=== PATIENT | male | born 1970 | race Hispanic/Latino ===

== ENCOUNTER 2018-02-14 09:29 | Inpatient (IN) | payer BC ==
[~2018-02-14] VITALS: Ht 162.6 cm; Wt 82.7 kg
[~2018-02-14 09:29] MED LIST: ATORVASTATIN CA10 MG PO; BYETTA; CLONIDINE HCL0.1 MG PO; DEXILANT60 MG PO; DIVALPROEX SOD250 MG PO; DOXEPIN HCL25 MG TP; EMPAGLIFLOZIN PO; FLAX SEED OIL1000 MG PO; FLUOCINONIDE-E15 GM; GLIMEPIRIDE1 MG PO; GLIMEPIRIDE2 MG PO; JANUMET 50-1,01 EACH PO; JANUVIA100 MG PO; LEVOCETIRIZINE D5 MG PO; LIDOCAINE 5% IN2 ML TP; LISINOPRIL2.5 MG PO; MECLIZINE HCL12.5 MG PO; METAXALONE PO; METFORMIN HCL500 M1; METFORMIN HCL500 M2 PO; METOPROLOL TART50 MG PO; MONTELUKAST SOD10 MG PO; NEXIUM2.5 MG; NITROSTAT0.4 MG SL; NOVOLOG MI100 UNIT/1; PLAVIX75 MG PO; PRAMIPEXOLE D0.25 MG PO; PROMETHAZINE HC25 M1 PO; ULTRAM50 MG PO; URSODIOL300 MG PO; Z PROPRANOLOL HCL; Z.0.JANUVIA100 MG; Z.0.LISINOPRIL40 MG; Z.0.SUMATRIPTAN SU10; Z.0.ZOLPIDEM TART12.; Z.1.METFORMIN HCL100
--- OUTSIDE RECORDS SUMMARY | 2018-02-14 09:32 | XMS REPORT ---
Author Author Lucinda Combs Organization [employer] Address Unknown Phone Unavailable Care Team Providers Care Chrome Plater Name Role Phone Lucinda Combs CP Unavailable Allergies No Known Allergies Problems Problem Type Condition Code Onset Dates Condition Status Problem Diabetes mellitus with complication E11.8 Active Assessment CAD in [place] artery I25.10 Active Problem Angina of effort I20.8 Active Problem Abnormal EKG R94.31 Active Problem Palpitations R00.2 Active Problem S/P PTCA (percutaneous transluminal coronary angioplasty) Z98.61 Active Problem Benign hypertensive heart disease I11.9 Active Problem CAD in [place] artery I25.10 Active Problem Pure hypercholesterolemia E78.01 Active Medications Medication Code System Code Instructions Start Date End Date Status Dosage Lisinopril [facility] [id number] 5 MG Orally Once a day Active 1 tablet Results No Known Results Summary Purpose [employer] Submission
--- OUTSIDE RECORDS SUMMARY | 2018-02-14 09:32 | XMS REPORT ---
Author Author Lucinda Combs Organization [employer] Address Unknown Phone Unavailable Care Team Providers Care Production Line Operator Name Role Phone Lucinda Combs CP Unavailable Allergies No Known Allergies Problems Problem Type Condition Code Onset Dates Condition Status Problem Pure hypercholesterolemia E78.01 Active Assessment CAD in [place] artery I25.10 Active Problem Angina of effort I20.8 Active Problem CAD in [place] artery I25.10 Active Problem Palpitations R00.2 Active Problem Diabetes mellitus with complication E11.8 Active Problem Benign hypertensive heart disease I11.9 Active Problem S/P PTCA (percutaneous transluminal coronary angioplasty) Z98.61 Active Problem Abnormal EKG R94.31 Active Medications Medication Code System Code Instructions Start Date End Date Status Dosage Plavix [facility] [address]-92 75 MG Orally Once a day Active 1 tablet Lisinopril [facility] [address]-64 5 MG Orally Once a day Active 1 tablet Results No Known Results Summary Purpose [employer] Submission
--- OUTSIDE RECORDS SUMMARY | 2018-02-14 09:32 | XMS REPORT ---
Author Author Lucinda Combs Organization [employer] Address Unknown Phone Unavailable Care Team Providers Care Die Cast Engineer Name Role Phone Lucinda Combs CP Unavailable Allergies No Known Allergies Problems Problem Type Condition Code Onset Dates Condition Status Problem Pure hypercholesterolemia E78.01 Active Assessment CAD in [place] artery I25.10 Active Problem Angina of effort I20.8 Active Problem CAD in [place] artery I25.10 Active Problem Palpitations R00.2 Active Problem Diabetes mellitus with complication E11.8 Active Problem Benign hypertensive heart disease I11.9 Active Problem S/P PTCA (percutaneous transluminal coronary angioplasty) Z98.61 Active Problem Abnormal EKG R94.31 Active Medications Medication Code System Code Instructions Start Date End Date Status Dosage Atorvastatin Calcium [facility] [address]-33 10 mg Orally Once a day Active 1 tablet Results No Known Results Summary Purpose [employer] Submission
--- OUTSIDE RECORDS SUMMARY | 2018-02-14 09:32 | XMS REPORT ---
Author Author Lucinda Combs Organization [employer] Address Unknown Phone Unavailable Care Team Providers Care Deal Architect Name Role Phone Lucinda Combs CP Unavailable Allergies No Known Allergies Problems Problem Type Condition Code Onset Dates Condition Status Problem Pure hypercholesterolemia E78.01 Active Assessment CAD in [place] artery I25.10 Active Problem Angina of effort I20.8 Active Problem CAD in [place] artery I25.10 Active Problem Palpitations R00.2 Active Problem Diabetes mellitus with complication E11.8 Active Problem Benign hypertensive heart disease I11.9 Active Problem S/P PTCA (percutaneous transluminal coronary angioplasty) Z98.61 Active Problem Abnormal EKG R94.31 Active Medications Medication Code System Code Instructions Start Date End Date Status Dosage Metoprolol Tartrate [facility] [address]-74 50 MG by mouth Twice a day Active 1 capsule Lisinopril [facility] [address]-95 5 MG Orally Once a day Active 1 tablet Results No Known Results Summary Purpose [employer] Submission
--- OUTSIDE RECORDS SUMMARY | 2018-02-14 09:32 | XMS REPORT ---
Author Author Lucinda Combs Organization [employer] Address Unknown Phone Unavailable Care Team Providers Care Scientific Editor Name Role Phone Lucinda Combs CP Unavailable Allergies No Known Allergies Problems Problem Type Condition Code Onset Dates Condition Status Problem Pure hypercholesterolemia E78.01 Active Assessment CAD in [place] artery I25.10 Active Problem Angina of effort I20.8 Active Problem CAD in [place] artery I25.10 Active Problem Palpitations R00.2 Active Problem Diabetes mellitus with complication E11.8 Active Problem Benign hypertensive heart disease I11.9 Active Problem S/P PTCA (percutaneous transluminal coronary angioplasty) Z98.61 Active Problem Abnormal EKG R94.31 Active Medications Medication Code System Code Instructions Start Date End Date Status Dosage Metoprolol Tartrate [facility] [address]-18 100 MG Orally Twice a day Active 1/2 half tablet Results No Known Results Summary Purpose [employer] Submission
--- OUTSIDE RECORDS SUMMARY | 2018-02-14 09:32 | XMS REPORT | Clinical Summary ---
Author Author [facility] Organization [facility] Address Unknown Phone Unavailable Care Team Providers Care Swat Team Member Name Role Phone Asked, No Pcp PCP Unavailable Allergies Comments Active Allergy Reactions Severity Noted Date Nausea, and vomitting Meperidine GI 09/13/2016 Intolerance Medications End Date Status Medication Sig Dispensed Refills Start Date Active montelukast (SINGULAIR) Take 10 mg by 0 10 mg tablet mouth 7 nightly. Active pramipexole (MIRAPEX) Take 0.25 mg 4 0.25 MG tablet by mouth 7 nightly. Active JANUMET 50-1,000 mg per Take 1 tablet 0 tablet by mouth 2 7 (two) times a day with meals. Active traMADol (ULTRAM) 50 mg Take 50 mg by 0 tablet mouth every 6 (six) hours as needed for moderate pain. Active promethazine (PHENERGAN) Take 25 mg by 0 25 MG tablet mouth every 6 (six) hours as needed for nausea or vomiting. Active lisinopril Take 1 tablet 90 tablet 0 (PRINIVIL,ZESTRIL) 5 mg (5 mg total) 7 tablet by mouth daily. Active anastrozole (ARIMIDEX) 1 Take 0.5 mg 0 mg chemo tablet by mouth once a week. Active testosterone cypionate Inject 140 mg 0 (DEPOTESTOTERONE into the CYPIONATE) 100 mg/mL shoulder, injection thigh, or buttocks once a week. Tuesday Active insulin ASPART (NovoLOG) Inject 4 0 100 unit/mL injection Units under the skin daily before breakfast. Active insulin ASPART (NovoLOG) Inject 54 0 100 unit/mL injection Units under the skin daily before lunch. Active insulin ASPART (NovoLOG) Inject 6 0 100 unit/mL injection Units under the skin daily before dinner. Active empagliflozin (JARDIANCE) Take 25 mg by 0 25 mg tablet mouth daily. Active divalproex (DEPAKOTE) 250 Take 250 mg 0 MG EC tablet by mouth every morning. Active divalproex (DEPAKOTE) 250 Take 500 mg 0 MG EC tablet by mouth nightly. Active INSULIN Inject 10 0 GLARGINE,HUM.REC.ANLOG Units under (TOUJEO SOLOSTAR U-300 the skin INSULIN SUBQ) every evening. Active atorvastatin (LIPITOR) 20 TAKE 1 TABLET 90 tablet 2 MG tabletIndications: BY MOUTH 8 Other hyperlipidemia EVERY DAY Active clopidogrel (PLAVIX) 75 TAKE 1 TABLET 90 tablet 0 mg tablet BY MOUTH 8 DAILY Active metoprolol tartrate TAKE 1 180 tablet 0 (LOPRESSOR) 50 mg tablet TABLET(50 MG) 8 BY MOUTH TWICE DAILY 05/20/2017 Discontinued divalproex (DEPAKOTE) 250 2 (two) times 4 MG EC tablet a day. 7 05/20/2017 Discontinued JARDIANCE 25 mg tablet daily. 3 7 05/20/2017 Discontinued NOVOLOG FLEXPEN 100 4 Units 2 unit/mL insulin pen before 7 breakfast - one time. 6m on weekend 4 m dose with sliding scale 12/23/2017 Discontinued nitroglycerin (NITROSTAT) Place 0.4 mg 0 0.4 MG SL tablet under the tongue every 5 (five) minutes as needed for chest pain. 05/20/2017 Discontinued esomeprazole magnesium Take by mouth 0 22.3 mg capsule,delayed as needed. release(DR/EC) 05/20/2017 Discontinued meclizine (ANTIVERT) 25 Take 25 mg by 0 mg tablet mouth as needed for dizziness. 08/22/2017 Discontinued atorvastatin (LIPITOR) 20 Take 1 tablet 90 tablet 3 MG tabletIndications: (20 mg total) 7 Other hyperlipidemia by mouth daily. Default OP ins 05/21/2017 Discontinued isosorbide mononitrate Take 1 tablet 30 tablet 11 (IMDUR) 30 MG 24 hr (30 mg total) 7 tablet by mouth daily. 01/08/2018 Discontinued clopidogrel (PLAVIX) 75 Take 1 tablet 90 tablet 3 mg tablet (75 mg total) 7 by mouth daily. 11/04/2017 Discontinued metoprolol tartrate Take 1 tablet 180 tablet 3 (LOPRESSOR) 50 mg tablet (50 mg total) 7 by mouth 2 (two) times a day. 06/16/2017 Discontinued isosorbide mononitrate Take 1 tablet 30 tablet 0 (IMDUR) 60 MG 24 hr (60 mg total) 8 tablet by mouth daily for 30 days. 05/31/2017 HYDROcodone-acetaminophen Take 1 tablet 20 tablet 0 (NORCO) 7.5-325 mg per by mouth 8 tablet every 4 (four) hours as needed for moderate pain for up to 10 days. Max Daily Amount: 6 tablets 06/16/2017 Discontinued isosorbide mononitrate Take 1 tablet 90 tablet 1 (IMDUR) 60 MG 24 hr (60 mg total) 8 tablet by mouth daily for 30 days. 06/16/2017 Discontinued isosorbide mononitrate Take 1 tablet 90 tablet 3 (IMDUR) 60 MG 24 hr (60 mg total) 8 tablet by mouth daily. 12/23/2017 Discontinued isosorbide mononitrate Take 1 tablet 90 tablet 3 (IMDUR) 60 MG 24 hr (60 mg total) 8 tablet by mouth daily. 02/01/2018 Discontinued metoprolol tartrate TAKE 1 180 tablet 0 (LOPRESSOR) 50 mg tablet TABLET(50 MG) 8 BY MOUTH TWICE DAILY 12/23/2017 Discontinued isosorbide mononitrate Take 3 90 tablet 2 (IMDUR) 30 MG 24 hr tablets (90 8 tablet mg total) by mouth daily for 30 days. 01/22/2018 nitroglycerin (NITROSTAT) Place 1 30 tablet 2 0.4 MG SL tablet tablet (0.4 8 mg total) under the tongue every 5 (five) minutes as needed for chest pain for up to 30 days. 01/23/2018 isosorbide mononitrate Take 3 90 tablet 2 (IMDUR) 30 MG 24 hr tablets (90 8 tablet mg total) by mouth daily for 30 days. Active Problems Problem Noted Date Precordial chest pain 12/22/2017 Chest pain 05/20/2017 Encounters Care Team Description Date Type Specialty Wilman Mendez MD Med Refill 02/01/2018 Refill Cardiology Wilman Mendez MD Med Refill 01/08/2018 Refill Cardiology Rehrer, DO Dian Ramos Anh Truong, MD Precordial chest pain (Primary Dx); Hypertension, unspecified type 12/22/2017 Emergency General Internal Medicine - 12/23/2017 Wilman Mendez MD Med Refill 11/04/2017 Refill Cardiology Wilman Mendez MD Med Refill 08/22/2017 Refill Cardiology Darlin Chapin MA Med Refill 06/16/2017 Refill Cardiology Jose Miguel Maynard MD Lee, Kelvin M., MD Chest pain, unspecified type (Primary Dx); Shortness of breath; Essential hypertension; Dyslipidemia 05/20/2017 Emergency General Internal Medicine - 05/21/2017 after 02/13/2017 Family History Medical History Relation Name Comments No Known Problems Father Diabetes Mother Hypertension Mother Diabetes Sister Hypertension Sister Relation Name Status Comments Father Mother Alive Sister Alive Social History Date Tobacco Use Types Packs/Day Years Used Former Smoker Smokeless Tobacco: Never Used Alcohol Use Drinks/Week oz/Week Comments No Sex Assigned at Date Recorded Not on file Industry Job Start Date Occupation Not on file Not on file Not on file Travel End Travel History Travel Start No recent travel history available. Last Filed Vital Signs Time Taken Vital Sign Reading 12/23/2017 3:14 PM CDT Blood Pressure 142/84 12/23/2017 3:14 PM CDT Pulse 78 12/23/2017 3:14 PM CDT Temperature 36.1 C (96.9 F) 12/23/2017 3:14 PM CDT Respiratory Rate 16 12/23/2017 3:14 PM CDT Oxygen Saturation 96% - Inhaled Oxygen - Concentration 12/23/2017 10:40 AM CDT Weight 78.5 kg (173 lb) 12/23/2017 10:40 AM CDT Height 160 cm (5' 3") 12/23/2017 10:40 AM CDT Body Mass Index 30.65 Plan of Treatment Health Maintenance Due Date Last Done Comments INFLUENZA VACCINE 10/05/2017 12/04/2016, 01/19/2016, 01/24/2014, Additional history exists HEPATITIS B VACCINES Aged Out No longer eligible based on patient's age to complete this topic IPV VACCINES Aged Out No longer eligible based on patient's age to complete this topic MENINGOCOCCAL VACCINE Aged Out No longer eligible based on patient's age to complete this topic Procedures Comments Procedure Name Priority Date/Time Associated Diagnosis POC GLUCOSE Routine 12/23/2017 1:15 PM CDT NM MYOCARDIAL PERFUSION Routine 12/23/2017 STRESS ONLY 12:42 PM CDT CV STRESS TEST NUCLEAR Routine 12/23/2017 CARDIO 12:42 PM CDT POC GLUCOSE Routine 12/23/2017 8:19 AM CDT LACTIC ACID LEVEL Routine 12/23/2017 4:23 AM CDT ESTIMATED GFR Routine 12/23/2017 4:23 AM CDT BASIC METABOLIC PANEL Routine 12/23/2017 4:23 AM CDT HEMOGLOBIN A1C Timed 12/23/2017 4:23 AM CDT TROPONIN Timed 12/23/2017 4:23 AM CDT VALPROIC ACID LEVEL Routine 12/23/2017 4:23 AM CDT POC GLUCOSE Routine 12/22/2017 8:[address] CHEST WO CONTRAST Routine 12/22/2017 6:25 PM CDT POC GLUCOSE Routine 12/22/2017 4:52 PM CDT TROPONIN Timed 12/22/2017 2:59 PM CDT LACTIC ACID LEVEL, SEPSIS Timed 12/22/2017 - NOW AND REPEAT 2X EVERY 2:59 PM CDT 3 HOURS ECHOCARDIOGRAM 2D Routine 12/22/2017 COMPLETE W MMODE SPECTRAL 2:50 PM CDT COLOR DOPPLER ([id number]) POC GLUCOSE Routine 12/22/2017 1:22 PM CDT ECG ED PRELIMINARY Routine 12/22/2017 INTERPRETATION 10:31 AM CDT XR CHEST 1 VW PORTABLE STAT 12/22/2017 9:34 AM CDT ESTIMATED GFR STAT 12/22/2017 9:18 AM CDT B NATRIURETIC PEPTIDE STAT 12/22/2017 9:18 AM CDT TROPONIN STAT 12/22/2017 9:18 AM CDT CREATINE KINASE, TOTAL STAT 12/22/2017 (CPK) 9:18 AM CDT LACTIC ACID LEVEL, SEPSIS STAT 12/22/2017 - NOW AND REPEAT 2X EVERY 9:18 AM CDT 3 HOURS MAGNESIUM LEVEL STAT 12/22/2017 9:18 AM CDT PHOSPHORUS LEVEL STAT 12/22/2017 9:18 AM CDT HEPATIC FUNCTION PANEL STAT 12/22/2017 9:18 AM CDT BASIC METABOLIC PANEL STAT 12/22/2017 9:18 AM CDT PARTIAL THROMBOPLASTIN STAT 12/22/2017 TIME (PTT) 9:18 AM CDT PROTHROMBIN TIME WITH INR STAT 12/22/2017 9:18 AM CDT HC COMPLETE BLD COUNT STAT 12/22/2017 W/AUTO DIFF 9:18 AM CDT ECG 12-LEAD STAT 12/22/2017 8:55 AM CDT POC GLUCOSE Routine 05/21/2017 5:08 PM CDT NM MYOCARDIAL PERFUSION Routine 05/21/2017 STRESS REST 1 DAY 12:20 PM CDT CV STRESS TEST NUCLEAR Routine 05/21/2017 CARDIO 12:20 PM CDT POC GLUCOSE Routine 05/21/2017 12:08 PM CDT POC GLUCOSE Routine 05/21/2017 8:17 AM CDT ZZESTIMATED GFR Routine 05/21/2017 4:00 AM CDT LIPID PANEL Routine 05/21/2017 4:00 AM CDT BASIC METABOLIC PANEL Routine 05/21/2017 4:00 AM CDT HC COMPLETE BLD COUNT Routine 05/21/2017 W/AUTO DIFF 3:45 AM CDT POC GLUCOSE Routine 05/20/2017 9:47 PM CDT POC GLUCOSE Routine 05/20/2017 5:58 PM CDT POC GLUCOSE Routine 05/20/2017 4:03 PM CDT TROPONIN Timed 05/20/2017 2:07 PM CDT XR CHEST 1 VW PORTABLE STAT 05/20/2017 11:10 AM CDT ZZESTIMATED GFR STAT 05/20/2017 10:05 AM CDT B NATRIURETIC PEPTIDE STAT 05/20/2017 10:05 AM CDT TROPONIN STAT 05/20/2017 10:05 AM CDT COMPREHENSIVE METABOLIC STAT 05/20/2017 PANEL 10:05 AM CDT HC COMPLETE BLD COUNT STAT 05/20/2017 W/AUTO DIFF 10:05 AM CDT ECG 12-LEAD STAT 05/20/2017 9:46 AM CDT after 02/13/2017 Results * POC glucose (12/23/2017 1:15 PM CDT) Only the most recent of 11 results within the time period is included. POC glucose 217 (H) 65 - 99 mg/dL [facility] DEPARTMENT OF Comment: PATHOLOGY AND H Notified RN [employer] MEDICINE Meter ID: [id number] Digital Production Manager: mau spivey Performing Organization Address City/State/Zipcode Phone Number [facility] DEPARTMENT OF [address] [place] [address] PATHOLOGY AND GENOMIC MEDICINE * Cv ecg exercise stress (nuclear or echo) (12/23/2017 12:42 PM CDT) Resting HR 69 [facility] MUSE Resting BP 143 [facility] Peak MET Achieved 1.0 [facility] Protocol Name CELY [facility] Time in Exercise Phase 00:01:00 [facility] Max Systolic BP 145 [facility] Max Diastolic BP 87 [facility] Max Heart Rate 102 [facility] Max Predicted Heart Rate 171 [facility] M[facility] Target HR Formula (220 - Age)*100% [facility] Test Indication chest pain [facility]USE Arrhy During Ex [facility] M[facility] ECG Interp Before EX [facility] MUSE ECG Interp During Ex [facility] Ex Summary Comment [facility] MUSE Overall HR Response to [facility] Exercise Overall BP Response To [facility] Exercise Reason for Termination [facility] Stress Test Impression -Waveform interpreted in [facility] report associated with image study. No interpretation is provided as part of this Stress ECG report.-Electronically Signed By Baldemar Law MD ([id number]), assignment desk editor Fiorella Conrad ([id number]) on 12/23/2017 2:08:09 PM Performing Organization Address [facility] Phone Number [facility] [address] [place] [address] * Myocardial perfusion (12/23/2017 12:42 PM CDT) Only the most recent of 2 results within the time period is included. Narrative Performed At [facility] Nuclear Cardiology and Cardiac CT [address] [place] [id number] Myocardial Perfusion Imaging Report Stress ECG tracings are available in MUSE, EPIC and CV Web All ECG interpretations are included in this report Pat.Name:HANG TOM Pat.ID:[id number] .Date: 12/23/2017Refer.MD:CORINE GIBSON MD Exam Time: 11:50:00 AM Study Type:Myocardial Perfusion Imaging Height:63inWeight:173lb BSA: 1.82 m2 DOBAge:1970,47Y Sex: MALEBP:143/92 HR:71 bpmHCT: 47 % Nuclear Tech:BETY Noland, ARRT, Gena Santa JOSE LUIS, NMTCB Pat. Stat.:Inpatient Room:[id number] Event ID:[id number] Order ID:[id number] Reason for Study:Eval for Ischemia, Chest pain History / Clinical:Diabetes, Hyperlipidemia, Hypertension Procedures:Low Dose Stress Only Race:C Risk Factors:Known Coronary Atherosclerosis, Diabetes, Hyperlipidemia, Hypertension, Prior HI Clinical Symptoms:Regadenoson Physical Exam:S1, S2 Surgery: Serum K+ Date,4.2 12/23/17/, Troponin I Date,1)negative 12/22/17/negative 12/22/17 2)negative 12/22/18/ 3)/ Medications:Aspirin, Plavix, Atorvastatin, Depakote, Insulin, Imdur, Metoprolol, Januvia SUMMARY: SCINTIGRAPHIC RESULTS Perfusion Defect Size (% LV) 0 % Total 0 % Ischemia 0 % Scar Left Ventricular Perfusion Results There is normal tracer distribution throughout the myocardium during stress. Gated SPECT Results The post-stress left ventricular ejection fraction is 68 % with normal regional wall motion and left ventricular thickening.Left ventricular end-diastolic volume is 113 ml; end-systolic volume is36 ml. The left ventricle is of normal size at stress.The right ventricle is of normal size with normal wall motion. Conclusion Normal regadenoson Tc-99m tetrofosmin myocardial perfusion study. The left ventricular ejection fraction is normal. CT Findings: Coronary calcification is present.The ascending and descending aorta are normal in size. There is no significant pericardial effusion. Limited lung baptiste show no significant abnormalities. Comments Patients with a normal stress myocardial perfusion study have a low (< 1%) annual risk of cardiac or nonfatal myocardial infarction. Study Quality/Artifacts The study quality is good. Comparison to Previous Study None availabThe previous study dated 05/21/17 was also normal with a left ventricular ejection fraction of 74%. STRESS: Baseline Vital Signs:Intervention: Regadenoson 0.4mg/5ml IV over 10 seconds followed by radiotracer injection and 5ml saline flush ECG: Normal Sinus Rhythm Rhythm:Non-specific ST changes Stress Test Results: Target HR: 145 Symptoms and Complications: Terminated: As per Regadenoson protocol Symptoms:Chest pain, Shortness of breath Complications: none Conclusions: Normal heart rate response to pharmacological stress, Normal blood pressure response to pharmacological stress Signed 12/23/2017 03:00 PM Baldemar Law MD Procedure Note Interface, Radiology Results In - 12/23/2017 3:00 PM CDT Nuclear Cardiology and Cardiac CT [address] [place] [address] Myocardial Perfusion Imaging Report Stress ECG tracings are available in [employer], [employer] All ECG interpretations are included in this report Pat.Name: HANG TOM Pat.ID: [id number] .Date: 12/23/2017 Refer.MD: CORINE GIBSON MD Exam Time: 11:50:00 AM Study Type:Myocardial Perfusion Imaging Height: 63in Weight: 173lb BSA: 1.82 m2 Age: 10 1970,47Y Sex: MALE BP: 143/92 HR: 71 bpm HCT: 47 % Nuclear Tech:Anselmo Maloney, HOTEL DESK CLERK, ARRT, Gena Santa, ARRT, NMTCB Pat. Stat.:Inpatient Room: J809 Nuclear Event ID:[id number] Order ID: [id number] Reason for Study:Eval for Ischemia, Chest pain History / Clinical:Diabetes, Hyperlipidemia, Hypertension Procedures:Low Dose Stress Only Race: C Risk Factors:Known Coronary Atherosclerosis, Diabetes, Hyperlipidemia, Hypertension, Prior HI Clinical Symptoms:Regadenoson Physical Exam:S1, S2 Surgery: Serum K+ Date, 4.2 12/23/17/, Troponin I Date, 1)negative 12/22/17/negative 12/22/17 2)negative 12/22/18/ 3)/ Medications:Aspirin, Plavix, Atorvastatin, Depakote, Insulin, Imdur, Metoprolol, Januvia SUMMARY: SCINTIGRAPHIC RESULTS Perfusion Defect Size (% LV) 0 % Total 0 % Ischemia 0 % Scar Left Ventricular Perfusion Results There is normal tracer distribution throughout the myocardium during stress. Gated SPECT Results The post-stress left ventricular ejection fraction is 68 % with normal regional wall motion and left ventricular thickening. Left ventricular end-diastolic volume is 113 ml; end-systolic volume is 36 ml. The left ventricle is of normal size at stress. The right ventricle is of normal size with normal wall motion. Conclusion Normal regadenoson Tc-99m tetrofosmin myocardial perfusion study. The left ventricular ejection fraction is normal. CT Findings: Coronary calcification is present. The ascending and descending aorta are normal in size. There is no significant pericardial effusion. Limited lung baptiste show no significant abnormalities. Comments Patients with a normal stress myocardial perfusion study have a low (< 1%) annual risk of cardiac or nonfatal myocardial infarction. Study Quality/Artifacts The study quality is good. Comparison to Previous Study None availabThe previous study dated 05/21/17 was also normal with a left ventricular ejection fraction of 74%. STRESS: Baseline Vital Signs: Intervention: Regadenoson 0.4mg/5ml IV over 10 seconds followed by radiotracer injection and 5ml saline flush ECG: Normal Sinus Rhythm Rhythm: Non-specific ST changes Stress Test Results: Target HR: 145 Symptoms and Complications: Terminated: As per Regadenoson protocol Symptoms: Chest pain, Shortness of breath Complications: none Conclusions: Normal heart rate response to pharmacological stress, Normal blood pressure response to pharmacological stress Signed 12/23/2017 03:00 PM Baldemar Law MD Performing Organization Address City/State/[facility] Phone Number [facility] [address] [place] [address] * Estimated GFR (12/23/2017 4:23 AM CDT) Only the most recent of 2 results within the time period is included. Estimated GFR 79 mL/min/1.73 m2 [facility] DEPARTMENT OF Comment: PATHOLOGY AND CatergoryUnitsInte GENOMIC MEDICINE rpretation G1 >=90 Normal or high G2 60-89Mildly decreased [id number] Mildly to moderately decreased E0c18-72 Moderately to severely decreased G4 15-29Severely decreased G5 <15Kidney failure The eGFR was calculated using the Chronic Kidney Disease Epidemiology Collaboration (CKD-EPI) equation. Interpretation is based on recommendations of the National Kidney Foundation-Kidney Disease Outcomes Quality Initiative (NKF-KDOQI) published in 2014. Specimen Plasma specimen Performing Organization Address [facility] Phone Number [facility] [place] [address] PATHOLOGY AND GENOMIC MEDICINE * Troponin (12/23/2017 4:23 AM CDT) Only the most recent of 5 results within the time period is included. Troponin <0.30 0.00 - 0.30 ng/mL [facility] DEPARTMENT OF Comment: PATHOLOGY AND 0.30 - 1.49 GENOMIC MEDICINE ng/mlMay indicate increased risk of acute coronary syndrome. >=1.5 ng/ml Consistent with acute myocardial infarction. The diagnostic value of a single normal or non-diagnostic result is questionable.Serial samples at 2-6 hour intervals are required to rule out acute myocardial injury. Specimen Plasma specimen Performing Organization Address [facility] Cent[facility]ode Phone Number [facility] DEPARTMENT OF [address] [place] [address] PATHOLOGY AND GENOMIC MEDICINE * Lactic acid level (12/23/2017 4:23 AM CDT) Lactic acid 2.8 (H) 0.5 - 2.2 mmol/L [facility] DEPARTMENT OF PATHOLOGY AND GENOMIC MEDICINE Specimen Plasma specimen Performing Organization Address [facility] Cent[facility]ode Phone Number [facility] DEPARTMENT OF [address] [place] [address] PATHOLOGY AND GENOMIC MEDICINE * Hemoglobin A1c (12/23/2017 4:23 AM CDT) Hemoglobin A1C 8.0 (H) 4.0 - 5.6 % [facility] DEPARTMENT OF Comment: PATHOLOGY AND HbA1c cutoffs for diagnosing GENOMIC MEDICINE diabetes: 4.0% - 5.6%=normal 5.7% - 6.4%=increased risk for diabetes (prediabetes) >=6.5%=diabetes Goals for glycemic control (ADA 2016) < 7.0%Target for non adults with diabetes. More or less stringent targets may be appropriate for individual patients. <7.5% Target for Children and adolescents with type 1 diabetes. Specimen Blood Performing Organization Address City/[facility] [place] [address] PATHOLOGY AND GENOMIC MEDICINE * Valproic acid level (12/23/2017 4:23 AM CDT) Valproic acid 56.3 50.0 - 100.0 ug/mL [facility] DEPARTMENT OF Comment: PATHOLOGY AND Therapeutic Range: GENOMIC MEDICINE 50 - 100 ug/mL Specimen Plasma specimen Performing Organization Address [facility] [place] [address] PATHOLOGY AND GENOMIC MEDICINE * Basic metabolic panel (12/23/2017 4:23 AM CDT) Only the most recent of 3 results within the time period is included. Sodium 139 135 - 148 mEq/L [facility] DEPARTMENT OF PATHOLOGY AND GENOMIC MEDICINE Potassium 4.2 3.5 - 5.0 mEq/L [facility] DEPARTMENT OF PATHOLOGY AND GENOMIC MEDICINE Chloride 101 98 - 112 mEq/L [facility] DEPARTMENT OF PATHOLOGY AND GENOMIC MEDICINE CO2 26 24 - 31 mEq/L [facility] DEPARTMENT OF PATHOLOGY AND GENOMIC MEDICINE Anion gap 12@ANIO 7 - 15 mEq/L [facility] DEPARTMENT OF PATHOLOGY AND GENOMIC MEDICINE BUN 11 6 - 20 mg/dL [facility] DEPARTMENT OF PATHOLOGY AND GENOMIC MEDICINE Creatinine 1.09 0.70 - 1.20 mg/dL [facility] DEPARTMENT OF PATHOLOGY AND GENOMIC MEDICINE Glucose 95 65 - 99 mg/dL [facility] DEPARTMENT OF PATHOLOGY AND GENOMIC MEDICINE Calcium 9.2 8.3 - 10.2 mg/dL [facility] DEPARTMENT OF PATHOLOGY AND GENOMIC MEDICINE Specimen Plasma specimen Performing Organization Address City/[facility] [place] [address] PATHOLOGY AND GENOMIC MEDICINE * CT Chest Wo Contrast (12/22/2017 6:25 PM CDT) Narrative Performed At EXAMINATION: [facility] CT CHEST WO CONTRAST CLINICAL HISTORY:Tachypnea TECHNIQUE: Multiple axial images of the chest were obtained without contrast. Sagittal and coronal computerized reformatted images were also obtained..All CT images were acquired using radiation dose lowering technique with automated exposure control and / or iterative reconstruction. COMPARISON: CT chest, 10/04/2011, and x-ray, 12/22/2017 IMPRESSION: 1.Mild bibasilar atelectasis and or scarring. Lungs otherwise clear. 2.No axillary, mediastinal or definite hilar lymphadenopathy identified on this limited noncontrast exam. Heart is not enlarged. No pericardial or pleural effusion. 3.Calcified plaque in the thoracic aorta and coronary arteries. A stent in the LAD. Cholecystectomy. Borderline fatty liver. 4.Nonobstructive nephrolithiasis bilaterally. Visualized bones show no suspicious lesion. SUMMARY: No acute or suspicious finding identified. [id number] Procedure Note Interface, Radiology Results Incoming - 12/22/2017 7:14 PM CDT EXAMINATION: CT CHEST WO CONTRAST CLINICAL HISTORY: Tachypnea TECHNIQUE: Multiple axial images of the chest were obtained without contrast. Sagittal and coronal computerized reformatted images were also obtained. . All CT images were acquired using radiation dose lowering technique with automated exposure control and / or iterative reconstruction. COMPARISON: CT chest, 10/04/2011, and x-ray, 12/22/2017 IMPRESSION: 1. Mild bibasilar atelectasis and or scarring. Lungs otherwise clear. 2. No axillary, mediastinal or definite hilar lymphadenopathy identified on this limited noncontrast exam. Heart is not enlarged. No pericardial or pleural effusion. 3. Calcified plaque in the thoracic aorta and coronary arteries. A stent in the LAD. Cholecystectomy. Borderline fatty liver. 4. Nonobstructive nephrolithiasis bilaterally. Visualized bones show no suspicious lesion. SUMMARY: No acute or suspicious finding identified. [facility]-[id number] Performing Organization Address City/State/Zipcode Phone Number EBONY [address] [place] [address] * Lactic acid level, SEPSIS - Now and repeat 2x every 3 hours (12/22/2017 2:59 PM CDT) Only the most recent of 2 results within the time period is included. Lactic acid 4.9 (HH) 0.5 - 2.2 mmol/L [facility] DEPARTMENT OF PATHOLOGY AND GENOMIC MEDICINE Specimen Blood Performing Organization Address City/State/Zipcode Phone Number [facility] DEPARTMENT OF [address] [place] [address] PATHOLOGY AND GENOMIC MEDICINE * Echocardiogram complete w contrast and 3D if needed (12/22/2017 2:50 PM CDT) Narrative Performed At [facility] Echocardiography Report [id number] [facility], [facility] [address], [place] [address] Pat.Name:HANG TOM Pat.ID:[id number] .Date: 12/22/2017Refer.MD:ILDA GIBSON MD Exam Time: 2:27:00 PMStudy Type:Routine Echo Height:63inWeight:175lb BSA: 1.83 m2 DOBAge:1970,47Y Sex: MALEBP:101/51 HR:86 bpm Sonogrphr: Chapis Shine RDCS, RVT/ Lilliana Mendez (student) Pat. Stat.:Inpatient Room:[facility] Study Status:Final Echo Event ID:[id number] Order ID:[id number] Reason for Study:Hypertension - Initial eval of suspected hypertensive heart disease History / Clinical:Coronary Artery Disease, Hyperlipidemia, Hypertension Procedures:2D Echo, Colorflow Doppler, Strain Race:C SUMMARY: LV size is normal. LV EF is normal. Estimated EF is 65-69% RV size is normal. RV systolic function is normal. FINDINGS: LV: LV size is normal. Concentric left ventricular remodeling. LVEF is normal. Overall wall motion is normal. LV GLS is mildlyimpaired at -14.3% Estimated EF is 65-69% RV: RV size is normal. RV systolic function is normal. LA: LA size is normal. RA: RA size is normal. AO: Aortic root diameter is normal. NATA: No pericardial effusion. IAS:Interatrial septum is thickened consistent with lipomatous hypertrophy. AV: No structural AV abnormalities noted. MV: No structural MV abnormalities noted. A trace of mitral regurgitation. PV: No structural PV abnormalities noted. TV: No structural TV abnormalities noted. Grace: Normal diastolic function. Other:Insufficient TR jet to estimate PA systolic pressure. MEASUREMENTS: 2D Parasternal Long Herminie LVOT 2 cmLA Ds3.5 cm LVIDd4.3 cmIndex2.3 cm/m Ao An2 cm LVIDs2.6 cmAo Rtd 3 cm Index1.7 cm/m LV%fs 39 % LV Yrck713.9 g(122-174) IVSd 1.2 cmLVM Index 97.7 g/m2 LVPWd1.2 cmRWT0.6 LA Sng Plane LA Area 14.5 cm2(8.8-23.4) LA Vol30.5 ml Index16.7 ml/m LA LngAx 5.8 cm DOPPLER LVOT Stroke Vol LVOT 2 cmLVOT CO5.2 l/min LVOT TVI19.6 cmLVOT CI2.8 l/m/m2 LVOT Tm297 [id number] bpm LVOT SV 61.4 ml Signed 12/22/2017 04:15 PM Anjel Portillo M.D. Procedure Note Interface, Radiology Results In - 12/22/2017 4:15 PM CDT Echocardiography Report [id number] [address] Pat.Name: HANG TOM.ID: [id number] .Date: 12/22/2017 Refer.MD: ILDA GIBSON MD Exam Time: 2:27:00 PM Study Type:Routine Echo Height: 63in Weight: 175lb BSA: 1.83 m2 Age: 10 1970,47Y Sex: MALE BP: 101/51 HR: 86 bpm Sonogrphr: Chapis Shine, GABRIEL, RVT/ Lilliana Mendez (student) Pat. Stat.:Inpatient Room: [facility] Study Status:Final Echo Event ID:[id number] Order ID: [id number] Reason for Study:Hypertension - Initial eval of suspected hypertensive heart disease History / Clinical:Coronary Artery Disease, Hyperlipidemia, Hypertension Procedures:2D Echo, Colorflow Doppler, Strain Race: C SUMMARY: LV size is normal. LV EF is normal. Estimated EF is 65-69% RV size is normal. RV systolic function is normal. FINDINGS: LV: LV size is normal. Concentric left ventricular remodeling. LV EF is normal. Overall wall motion is normal. LV GLS is mildly impaired at -14.3% Estimated EF is 65-69% RV: RV size is normal. RV systolic function is normal. LA: LA size is normal. RA: RA size is normal. AO: Aortic root diameter is normal. NATA: No pericardial effusion. IAS: Interatrial septum is thickened consistent with lipomatous hypertrophy. AV: No structural AV abnormalities noted. MV: No structural MV abnormalities noted. A trace of mitral regurgitation. PV: No structural PV abnormalities noted. TV: No structural TV abnormalities noted. Grace: Normal diastolic function. Other: Insufficient TR jet to estimate PA systolic pressure. MEASUREMENTS: 2D Parasternal Long [place]ie LVOT 2 cm LA Ds 3.5 cm LVIDd 4.3 cm Index 2.3 cm/m Ao An 2 cm LVIDs 2.6 cm Ao Rtd 3 cm Index 1.7 cm/m LV%fs 39 % LV Mass 178.9 g (122-174) IVSd 1.2 cm LVM Index 97.7 g/m2 LVPWd 1.2 cm RWT 0.6 LA Sng Plane LA Area 14.5 cm2 (8.8-23.4) LA Vol 30.5 ml Index 16.7 ml/m LA LngAx 5.8 cm DOPPLER LVOT Stroke Vol LVOT 2 cm LVOT CO 5.2 l/min LVOT TVI 19.6 cm LVOT CI 2.8 l/m/m2 LVOT Tm 297 msec HR 84 bpm LVOT SV 61.4 ml Signed 12/22/2017 04:15 PM Anjel Portillo M.D. Performing Organization Address City/State/Zipcode Phone Number [facility] [address] [place] [address] * ECG ED Preliminary Interpretation - NOT AN ORDER (12/22/2017 10:31 AM CDT) Narrative Performed At Attila Rosales DO 12/22/20171:52 PM ECG ED Preliminary Interpretation - Not an Order Performed by: ATTILA ROSALES Authorized by: ATTILA ROSALES ECG reviewed by ED Physician in the absence of a apprentice lineman third step: yes Previous ECG: Previous ECG:Compared to current Comparison ECG info:05/20 Similarity:No change Interpretation: Interpretation: abnormal Rate: ECG rate:91 ECG rate assessment: normal Rhythm: Rhythm: sinus rhythm Ectopy: Ectopy: none QRS: QRS axis:Normal QRS intervals:Normal Conduction: Conduction: normal ST segments: ST segments:Normal T waves: T waves: non-specific Q waves: Q waves:I and aVL Comments: left atrial fascicular block * XR Chest 1 Vw Portable (12/22/2017 9:34 AM CDT) Only the most recent of 2 results within the time period is included. Narrative Performed At EXAMINATION:XR CHEST 1 VW PORTABLE RADIANT CLINICAL HISTORY:Chest pain concern for ACs COMPARISON:05/20/2017. IMPRESSION: 1. LINES/TUBES: None. 2.LUNGS: Clear. 3.HEART:Heart size is normal.. 4.PLEURA: No evidence for pleural effusion or pneumothorax.. 5.OTHER: Regional osseous structures remain normal in appearance. [id number] Procedure Note [facility], Radiology Results Incoming - 12/22/2017 9:41 AM CDT EXAMINATION: XR CHEST 1 VW PORTABLE CLINICAL HISTORY: Chest pain concern for ACs COMPARISON: 05/20/2017. IMPRESSION: 1. LINES/TUBES: None. 2. LUNGS: Clear. 3. HEART: Heart size is normal.. 4. PLEURA: No evidence for pleural effusion or pneumothorax.. 5. OTHER: Regional osseous structures remain normal in appearance. [id number] Performing Organization Address [facility] [place] [address] * Partial thromboplastin time, activated (12/22/2017 9:18 AM CDT) PTT 31.1 23.0 - 36.0 sec [facility] DEPARTMENT OF Comment: PATHOLOGY AND PTT therapeutic range for DeepDyve MEDICINE unfractionated heparin is 61.0-112.0 seconds which corresponds to Anti-Xa 0.3-0.7 U/ml. Specimen Blood Performing Organization Address [facility] [place] [address] PATHOLOGY AND GENOMIC MEDICINE * Prothrombin time with INR (12/22/2017 9:18 AM CDT) Prothrombin time 12.8 12.0 - 15.0 sec [facility] DEPARTMENT OF PATHOLOGY AND GENOMIC MEDICINE INR 1.0 [facility] DEPARTMENT OF Comment: PATHOLOGY AND The International Normalized GENOMIC MEDICINE Ratio (INR) is a therapeutic monitoring tool for patients who are stable on oral anticoagulant therapy. An INR of 2.0-3.0 is suggested for deep vein thrombosis/pulmonary embolism. Specimen Blood Performing Organization Address [facility] Phone Number [facility] [place] [address] PATHOLOGY AND GENOMIC MEDICINE * CBC with platelet and differential (12/22/2017 9:18 AM CDT) Only the most recent of 3 results within the time period is included. WBC 9.19 4.50 - 11.00 k/uL [facility] DEPARTMENT OF PATHOLOGY AND GENOMIC MEDICINE RBC 6.07 (H) 4.40 - 6.00 m/uL [facility] DEPARTMENT OF PATHOLOGY AND GENOMIC MEDICINE HGB 14.4 14.0 - 18.0 g/dL [facility] DEPARTMENT OF PATHOLOGY AND GENOMIC MEDICINE HCT 47.0 41.0 - 51.0 % [facility] DEPARTMENT OF PATHOLOGY AND GENOMIC MEDICINE MCV 77.4 (L) 82.0 - 100.0 fL [facility] DEPARTMENT OF PATHOLOGY AND GENOMIC MEDICINE MCH 23.7 (L) 27.0 - 34.0 pg [facility] DEPARTMENT OF PATHOLOGY AND GENOMIC MEDICINE MCHC 30.6 (L) 31.0 - 37.0 g/dL [facility] DEPARTMENT OF PATHOLOGY AND GENOMIC MEDICINE RDW - SD 48.0 37.0 - 55.0 fL [facility] DEPARTMENT OF PATHOLOGY AND GENOMIC MEDICINE MPV 10.2 8.8 - 13.2 fL [facility] DEPARTMENT OF PATHOLOGY AND GENOMIC MEDICINE Platelet count 267 150 - 400 k/uL [facility] DEPARTMENT OF PATHOLOGY AND GENOMIC MEDICINE Nucleated RBC 0.00 /100 WBC [facility] DEPARTMENT OF PATHOLOGY AND GENOMIC MEDICINE Neutrophils 66.9 39.0 - 69.0 % [facility] DEPARTMENT OF PATHOLOGY AND GENOMIC MEDICINE Lymphocytes 21.5 (L) 25.0 - 45.0 % [facility] DEPARTMENT OF PATHOLOGY AND GENOMIC MEDICINE Monocytes 9.5 0.0 - 10.0 % [facility] DEPARTMENT OF PATHOLOGY AND GENOMIC MEDICINE Eosinophils 1.2 0.0 - 5.0 % [facility] DEPARTMENT OF PATHOLOGY AND GENOMIC MEDICINE Basophils 0.5 0.0 - 1.0 % [facility] DEPARTMENT OF PATHOLOGY AND GENOMIC MEDICINE Immature granulocytes 0.4Comment: "Immature 0.0 - 1.0 % [facility] DEPARTMENT OF granulocytes" (promyelocytes, PATHOLOGY AND myelocytes, metamyelocytes) GENOMIC MEDICINE Specimen Blood Performing Organization Address City/[facility]/Zipcode Phone Number [facility] [place] [address] PATHOLOGY AND GENOMIC MEDICINE * Phosphorus level (12/22/2017 9:18 AM CDT) Phosphorus 2.7 2.4 - 4.5 mg/dL [facility] DEPARTMENT OF PATHOLOGY AND GENOMIC MEDICINE Specimen Plasma specimen Performing Organization Address City/[facility] Phone Number [facility] [place] [address] PATHOLOGY AND GENOMIC MEDICINE * B natriuretic peptide (12/22/2017 9:18 AM CDT) Only the most recent of 2 results within the time period is included. BNP 3 0 - 100 pg/mL [facility] DEPARTMENT OF PATHOLOGY AND GENOMIC MEDICINE Specimen Blood Performing Organization Address City/[facility] [place] [address] PATHOLOGY AND GENOMIC MEDICINE * Magnesium level (12/22/2017 9:18 AM CDT) Magnesium 1.9 1.6 - 2.6 mg/dL [facility] DEPARTMENT OF PATHOLOGY AND GENOMIC MEDICINE Specimen Plasma specimen Performing Organization Address [facility] [place] [address] PATHOLOGY AND GENOMIC MEDICINE * Creatine kinase, total (CPK) (12/22/2017 9:18 AM CDT) Creatine kinase 135 39 - 308 U/L [facility] DEPARTMENT OF PATHOLOGY AND GENOMIC MEDICINE Specimen Plasma specimen Performing Organization Address [facility] [place] [address] PATHOLOGY AND GENOMIC MEDICINE * Hepatic function panel (12/22/2017 9:18 AM CDT) Albumin 3.6 3.5 - 5.0 g/dL [facility] DEPARTMENT OF PATHOLOGY AND GENOMIC MEDICINE Total bilirubin 0.4 0.0 - 1.2 mg/dL [facility] DEPARTMENT OF PATHOLOGY AND GENOMIC MEDICINE Bilirubin direct <0.2 0.0 - 0.3 mg/dL [facility] DEPARTMENT OF PATHOLOGY AND GENOMIC MEDICINE Alkaline phosphatase 55 40 - 129 U/L [facility] DEPARTMENT OF PATHOLOGY AND GENOMIC MEDICINE Protein 8.1 6.3 - 8.3 g/dL [facility] DEPARTMENT OF Comment: PATHOLOGY AND GENOMIC MEDICINE 4.6-7.0 g/dL 1 week 4.4-7.6 g/dL 7 months-1year 5.1-7.3 g/dL 1-2 years5.6-7 .5 g/dL >3 years6.0-8 .0 g/dL 18-150 6.3-8.3 g/dL ALT 20 5 - 50 U/L [facility] DEPARTMENT OF PATHOLOGY AND GENOMIC MEDICINE AST 23 10 - 50 U/L [facility] DEPARTMENT OF PATHOLOGY AND GENOMIC MEDICINE Specimen Plasma specimen Performing Organization Address [facility] Phone Number [facility] [place] [address] PATHOLOGY AND GENOMIC MEDICINE * ECG 12 lead (12/22/2017 8:55 AM CDT) Only the most recent of 2 results within the time period is included. Ventricular rate 91 [facility] Atrial rate 91 [facility] IN interval 146 [facility] QRSD interval 120 [facility] QT interval 328 [facility] QTC interval 403 [facility] P axis 1 17 [facility] QRS axis 1 -57 [facility] T wave axis 90 [facility] MUSE EKG impression Normal sinus rhythm-Left [facility] MUSE anterior fascicular block-Left ventricular hypertrophy with QRS widening and repolarization abnormality-Abnormal ECG-No previous ECGs available- Performing Organization Address [facility] Phone Number [facility] MUSE [address] [place] [address] * Cv ecg exercise stress (nuclear or echo) (05/21/2017 12:20 PM CDT) Resting HR 69 [facility] Resting BP 127 [facility] Peak MET Achieved 1.0 [facility] MUSE Protocol Name REGADENO [facility] MUSE Time in Exercise Phase 00:01:00 [facility] Max Systolic BP 147 [facility] Max Diastolic BP 83 [facility] Max Heart Rate 101 [facility] Max Predicted Heart Rate 171 [facility] Target HR Formula (220 - Age)*100% H MUSE Test Indication chest pain [facility] MUSE Stress Test Impression -Waveform interpreted in [facility] MUSE report associated with image study. No interpretation is provided as part of this Stress ECG report.-Electronically Signed By Wilman Mendez MD ([id number]), assignment desk editor Fiorella Conrad ([id number]) on 05/21/2017 11:49:39 AM Target HR 145.35 bpm [facility] MUSE Performing Organization Address [facility] Phone Number [facility] MUSE [address] [place] [address] * Estimated GFR (05/21/2017 4:00 AM CDT) Only the most recent of 2 results within the time period is included. GFR Non Af Amer 64 mL/min/1.73 m2 [facility] DEPARTMENT OF PATHOLOGY AND GENOMIC MEDICINE GFR Af Amer 78 mL/min/1.73 m2 [facility] DEPARTMENT OF Comment: PATHOLOGY AND Chronic kidney disease: <60 GENOMIC MEDICINE mL/min/1.73m2 Kidney failure: <15 mL/min/1.73m2 The estimated GFR is calculated from the IDMS-traceable Modification of Diet in Renal Disease Equation. The accuracy of the calculation is poor when the creatinine is normal. Calculated values >90 mL/min/1.73m2 are not reported. This equation has not been validated in children (<18 years), women, the elderly (>70 years), or ethnic groups other than Caucasians and Americans. Specimen Plasma specimen Performing Organization Address City/State/Zipcode Phone Number [facility] DEPARTMENT OF [address] [place] [address] PATHOLOGY AND GENOMIC MEDICINE * Lipid panel (05/21/2017 4:00 AM CDT) Cholesterol 106 <200 mg/dL [facility] DEPARTMENT OF PATHOLOGY AND GENOMIC MEDICINE Triglycerides 148 <150 mg/dL [facility] DEPARTMENT OF PATHOLOGY AND GENOMIC MEDICINE HDL cholesterol 32 (L) >40 mg/dL [facility] DEPARTMENT OF PATHOLOGY AND GENOMIC MEDICINE LDL cholesterol 63Comment: Result obtained by <100 mg/dL [facility] DEPARTMENT OF direct LDL measurement PATHOLOGY AND GENOMIC MEDICINE Lipid panel SeeBelow [facility] DEPARTMENT OF interpretation Comment: PATHOLOGY AND Total Cholesterol GENOMIC MEDICINE (mg/dL) <200 Desirable 200-239Borderline -high >=240High Triglycerides (mg/dL) <150 Normal 150-199Borderline -high 200-499High >=500Very high HDL Cholesterol (mg/dL) <40Low (male) <40Low (female) LDL Cholesterol (mg/dL) <100 Optimal 100-129Near or above optimal 130-159Borderline -high 160-189High >=190Very high Risk Catergories that modify LDL goals. Risk Catergories LDL goal (mg/dL) CHD and CHD risk equivalent<100 (10-year risk >20%) Multiple (2+) risk factors <130 (10-year risk=<20%) 0-1 risk factors <160 (<10-year risk) Defining levels of lipids in metabolic syndrome Triglycerides >=150 mg/dL HDL Cholesterol Men <40 mg/dL Women <40 mg/dL Non-HDL cholesterol is a second target for therapy in persons with high triglycerides (>=200 mg/dL) Specimen Plasma specimen Performing Organization Address City/State/Zipcode Phone Number [facility] [address] [place] [address] PATHOLOGY AND GENOMIC MEDICINE * Comprehensive metabolic panel (05/20/2017 10:05 AM CDT) Sodium 144 135 - 148 mEq/L [facility] DEPARTMENT OF PATHOLOGY AND GENOMIC MEDICINE Potassium 4.7 3.5 - 5.0 mEq/L [facility] DEPARTMENT OF PATHOLOGY AND GENOMIC MEDICINE Chloride 101 98 - 112 mEq/L [facility] DEPARTMENT OF PATHOLOGY AND GENOMIC MEDICINE CO2 29 24 - 31 mEq/L [facility] DEPARTMENT OF PATHOLOGY AND GENOMIC MEDICINE Anion gap 14 7 - 15 mEq/L [facility] DEPARTMENT OF Comment: PATHOLOGY AND Starting from June GENOMIC MEDICINE , anion gap calculation no longer incorporates potassium. Please note the change. BUN 8 6 - 20 mg/dL [facility] DEPARTMENT OF PATHOLOGY AND GENOMIC MEDICINE Creatinine 1.1 0.7 - 1.2 mg/dL [facility] DEPARTMENT OF PATHOLOGY AND GENOMIC MEDICINE Glucose 113 (H) 65 - 99 mg/dL [facility] DEPARTMENT OF PATHOLOGY AND GENOMIC MEDICINE Calcium 10.1 8.3 - 10.2 mg/dL [facility] DEPARTMENT OF PATHOLOGY AND GENOMIC MEDICINE Protein 7.8 6.3 - 8.3 g/dL [facility] DEPARTMENT OF Comment: PATHOLOGY AND GENOMIC MEDICINE 4.6-7.0 g/dL 1 week 4.4-7.6 g/dL 7 months-1year 5.1-7.3 g/dL 1-2 years5.6-7 .5 g/dL >3 years6.0-8 .0 g/dL 18-150 6.3-8.3 g/dL Albumin 3.6 3.5 - 5.0 g/dL [facility] DEPARTMENT OF PATHOLOGY AND GENOMIC MEDICINE A/G ratio 0.9 0.7 - 3.8 [facility] DEPARTMENT OF PATHOLOGY AND GENOMIC MEDICINE Alkaline phosphatase 47 40 - 129 U/L [facility] DEPARTMENT OF PATHOLOGY AND GENOMIC MEDICINE AST 24 10 - 50 U/L [facility] DEPARTMENT OF PATHOLOGY AND GENOMIC MEDICINE ALT 20 5 - 50 U/L [facility] DEPARTMENT OF PATHOLOGY AND GENOMIC MEDICINE Total bilirubin 0.4 0.0 - 1.2 mg/dL [facility] DEPARTMENT OF PATHOLOGY AND GENOMIC MEDICINE Specimen Plasma specimen Performing Organization Address City/[facility]/Zipcode Phone Number [facility] [address] [place] [address] PATHOLOGY AND GENOMIC MEDICINE after 02/13/2017 Insurance Payer Benefit Subscriber ID Type Phone Address Plan / Group BCBS BCBS xxxxxxxxxxxx PPO CHOICE PPO/[employer] PPO Advance Directives Patient has advance care planning documents on file. For more information, malathi e contact: Rajiv Wallace [address] [place] [address]
--- OUTSIDE RECORDS SUMMARY | 2018-02-14 09:32 | XMS REPORT ---
Author Author Lucinda Combs Organization [employer] Address Unknown Phone Unavailable Care Team Providers Care Sales Representatives Name Role Phone Lucinda Combs CP Unavailable Allergies No Known Allergies Problems Problem Type Condition Code Onset Dates Condition Status Problem Pure hypercholesterolemia E78.01 Active Assessment CAD in [place] artery I25.10 Active Problem Angina of effort I20.8 Active Problem CAD in [place] artery I25.10 Active Problem Palpitations R00.2 Active Problem Diabetes mellitus with complication E11.8 Active Problem Benign hypertensive heart disease I11.9 Active Problem S/P PTCA (percutaneous transluminal coronary angioplasty) Z98.61 Active Problem Abnormal EKG R94.31 Active Medications Medication Code System Code Instructions Start Date End Date Status Dosage Lisinopril [facility] [address]-14 5 MG Orally Once a day Active 1 tablet Results No Known Results Summary Purpose [employer] Submission
--- OUTSIDE RECORDS SUMMARY | 2018-02-14 09:32 | XMS REPORT ---
Author Author Lucinda Combs Organization [employer] Address Unknown Phone Unavailable Care Team Providers Care Amphibian Crewmember Name Role Phone Lucinda Combs CP Unavailable Allergies No Known Allergies Problems Problem Type Condition Code Onset Dates Condition Status Problem Pure hypercholesterolemia E78.01 Active Assessment CAD in [place] artery I25.10 Active Problem Angina of effort I20.8 Active Problem CAD in [place] artery I25.10 Active Problem Palpitations R00.2 Active Problem Diabetes mellitus with complication E11.8 Active Problem Benign hypertensive heart disease I11.9 Active Problem S/P PTCA (percutaneous transluminal coronary angioplasty) Z98.61 Active Problem Abnormal EKG R94.31 Active Medications Medication Code System Code Instructions Start Date End Date Status Dosage Metoprolol Tartrate [facility] [address]-84 50 MG by mouth Twice a day Active 1 capsule Results No Known Results Summary Purpose [employer] Submission
--- OUTSIDE RECORDS SUMMARY | 2018-02-14 09:32 | XMS REPORT ---
Author Author Lucinda Combs Organization [employer] Address Unknown Phone Unavailable Care Team Providers Care Car Manager Name Role Phone Lucinda Combs CP Unavailable Allergies No Known Allergies Problems Problem Type Condition Code Onset Dates Condition Status Problem Pure hypercholesterolemia E78.01 Active Assessment CAD in [place] artery I25.10 Active Problem Angina of effort I20.8 Active Problem CAD in [place] artery I25.10 Active Problem Palpitations R00.2 Active Problem Diabetes mellitus with complication E11.8 Active Problem Benign hypertensive heart disease I11.9 Active Problem S/P PTCA (percutaneous transluminal coronary angioplasty) Z98.61 Active Problem Abnormal EKG R94.31 Active Medications Medication Code System Code Instructions Start Date End Date Status Dosage Plavix [facility] [address]-93 75 MG Orally Once a day Active 1 tablet Results No Known Results Summary Purpose [employer] Submission
--- OUTSIDE RECORDS SUMMARY | 2018-02-14 09:32 | XMS REPORT | Continuity of Care Document ---
Author Author [facility] Interface Address Unknown Phone Unavailable Problems Problem Status Onset Date Classification Date Reported Comments Source Pure hypercholesterolemia Active Problem 11/16/2017 Lucinda Combs CAD in [place] artery Active Diagnosis 11/16/2017 Lucinda Combs Angina of effort Active Problem 11/16/2017 Lucinda Combs Palpitations Active Problem 11/16/2017 Lucinda Combs Diabetes mellitus with complication Active Problem 11/16/2017 Lucinda Combs Benign hypertensive heart disease Active Problem 11/16/2017 Lucinda Combs S/P PTCA Active Problem 11/16/2017 Lucinda Combs Abnormal EKG Active Problem 11/16/2017 Lucinda Combs Hypercholesterolemia Active Problem 11/13/2014 Lucinda Combs Diabetes mellitus with complication Active Problem 11/13/2014 Lucinda Comsb 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 11/13/2014 Lucinda Combs Unstable Angina Active Problem 11/13/2014 Lucinda Combs Angina Active Problem 11/13/2014 Lucinda Combs Abnormal ECG Active Problem 11/13/2014 Lucinda Combs Benign hypertensive heart disease Active Problem 11/13/2014 Lucinda Combs CAD, [place] Coronary Artery Active Problem 11/13/2014 Lucinda Combs S/P PTCA Active Problem 11/13/2014 Lucinda Combs Chest Pain Active Problem 11/13/2014 Lucinda Combs Medications Medication Details Route Status Patient Instructions Ordering Provider Order Date Source Plavix 1 tablet Orally Active 75 MG Orally Once a day Lauryn Combs Lisinopril 1 tablet Orally Active 5 MG Orally Once a day Lauryn Combs Atorvastatin Calcium 1 tablet Orally Active 10 mg Orally Once a day Lauryn Combs Metoprolol Tartrate 1 capsule by mouth Active 50 MG by mouth Twice a day Lauryn Combs Metoprolol Tartrate 1/2 half tablet Orally Active 100 MG Orally Twice a day Lauryn Combs Lisinopril 1 tablet Orally Active 5 MG Orally Once a day Lauryn Combs Lipitor 1 tablet Orally Active 10 mg Orally Once a day Lauryn Combs Allergies, Adverse Reactions, Alerts Substance Category Reaction Severity Reaction type Status Date Reported Comments Source Immunizations Immunization Date Given Site Status Last Updated Comments Source Results Order Name Results Value Reference Range Date Interpretation Comments Source Vital Signs Vital Sign Value Date Comments Source Encounters Location Location Details Encounter Type Encounter Number Reason For Visit Attending Provider ADM Date DC Date Status Source MD FAISAL Burch Unknown [id number] 10/09/2013 10/09/2013 MD FAISAL Hensley Unknown [id number] 10/09/2013 10/09/2013 MD FAISAL Hensley Unknown [id number] 10/09/2013 10/09/2013 MD FAISAL Hensley Unknown [id number] 10/29/2013 10/29/2013 MD FAISAL Hensley Unknown [id number] 10/29/2013 10/29/2013 MD FAISAL Hensley Unknown [id number] 07/22/2014 07/22/2014 MD FAISAL Hensley Unknown [id number] 08/19/2014 08/19/2014 MD FAISAL Hensley Unknown [id number] 08/26/2014 08/26/2014 Lucinda Combs MD [place] Unknown [id number] 11/12/2014 11/12/2014 Lucinda Combs Procedures Procedure Code Date Perfomer Comments Source
--- OUTSIDE RECORDS SUMMARY | 2018-02-14 09:33 | XMS REPORT ---
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 Status Never Smoker Nov 06, 2013 Alcohol Use No. Nov 06, 2013 Alcohol Screening: No. Points: 0, Interpretation: Negative Nov 06, 2013 Marital Status: . Nov 06, 2013 Do you drink alcohol? No. 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
--- OUTSIDE RECORDS SUMMARY | 2018-02-14 09:33 | XMS REPORT ---
Author Author Lucinda Combs Organization [employer] Address Unknown Phone Unavailable Care Team Providers Care Client Support Consultant Name Role Phone Lucinda Combs CP Unavailable Encounters Encounter Location Date Unknown Lucinda Combs MD [place] August 19, 2014 Unknown Lucinda Combs MD [place] August 26, 2014 Unknown Lucinda Combs MD [place] Nov 12, 2014 Unknown Lucinda Cobms MD [place] Oct 09, 2013 Unknown Lucinda Combs MD [place] Oct 29, 2013 Unknown Lucinda Combs MD [place] July 22, 2014 Problems Problem Type Condition ICD-9 Code Onset [...] Problem Unstable Angina 411.1 Active Problem CAD, [place] Coronary Artery 414.01 Active Medications Medication Code System Code Instructions Start Date End Date Status Dosage Lipitor MEDISPAN [address]-03 10 mg Orally Once a day Active 1 tablet Social History Social History Element Qualifiers Date Reported Smoking . Status Never Smoker September 19, 2014 Alcohol Use No. September 19, 2014 Alcohol Screening: No. Points: 0, Interpretation: Negative September 19, 2014 Marital Status: . September 19, 2014 Do you drink alcohol? No. 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
--- OUTSIDE RECORDS SUMMARY | 2018-02-14 09:33 | XMS REPORT ---
Author Author Lucinda Combs Organization [employer] Address Unknown Phone Unavailable Care Team Providers Care Agricultural Purchasing Agent Name Role Phone Lucinda Combs CP Unavailable Allergies No Known Allergies Problems Problem Type Condition Code Onset Dates Condition Status Problem Diabetes mellitus with complication E11.8 Active Assessment CAD in [place] artery I25.10 Active Problem Angina of effort I20.8 Active Problem Abnormal EKG R94.31 Active Problem Palpitations R00.2 Active Problem S/P PTCA (percutaneous transluminal coronary angioplasty) Z98.61 Active Problem Benign hypertensive heart disease I11.9 Active Problem CAD in [place] artery I25.10 Active Problem Pure hypercholesterolemia E78.01 Active Medications Medication Code System Code Instructions Start Date End Date Status Dosage Lisinopril [facility] [id number] 5 MG Orally Once a day Active 1 tablet Results No Known Results Summary Purpose eClinicalWorks Submission
--- OUTSIDE RECORDS SUMMARY | 2018-02-14 09:33 | XMS REPORT | Summary of Care ---
Author Author Laila Londono LVN Unknown Address [facility] Phone Unavailable Care Team Providers Care Tape Rules Printing Machine Operator Name Role Phone SUDHA Rich, RODDY Unavailable Unavailable SAUMYA Carson, KALI Unavailable Unavailable DAVID Carson, ADONIS Duran Unavailable PEARL Carson, REZA Unavailable Unavailable NOWAK N.P., MARIE Unavailable Unavailable DAVID BOWSER [place], ADONIS ALICIA Unavailable Unavailable Unavailable Unavailable Functional Status Name Dates Details Functional status health issues are not documented Status: Name Dates Details Cognitive status health issues are not documented Status: Problems Name Dates Details Abnormal blood level of mineral (790.6, R79.0) Status: Active Arthralgia of temporomandibular joint (524.62, M26.629) Status: Active Insomnia (780.52, G47.00) Status: Active Dermatitis (692.9, L30.9) Status: Active Cirrhosis (571.5, K74.60) Status: Active 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, 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 Coronary artery disease (414.00, I25.10) Status: Active Central perforation of tympanic membrane (384.21, H72.00) Status: Active Bleeding external hemorrhoids (455.5, K64.4) Status: Active Hyperlipidemia (272.4, E78.5) Status: Active Apnea (786.03, R06.81) Status: Active Need for influenza vaccination (V04.81, Z23) Status: Active Morales's esophagus (530.85, K22.70) Status: Active Obstructive sleep apnea (327.23, G47.33) Status: Active Sinusitis (473.9, J32.9) Status: Active Essential (primary) hypertension (401.9, I10) Status: Active Allergic rhinitis (477.9, J30.9) Status: Active Sinusitis (473.9, J32.9) Status: Active Sinusitis, acute maxillary (461.0, J01.00) Status: Active Neuropathy, diabetic (250.60, E11.40) Status: Active Fever (780.60, R50.9) Status: Active Serous otitis media (381.4, H65.90) Status: Active Erectile dysfunction (607.84, N52.9) Status: Active Eustachian tube disorder (381.9, H69.90) Status: Active Acute otitis externa (380.10, H60.509) Status: Active Otalgia of left ear (388.70, H92.02) Status: Active Headache (784.0, R51) Status: Active Diabetes mellitus (250.00, E11.9) Status: Active Vasovagal episode (780.2, R55) Status: Active Abnormal auditory perception, right (388.40, H93.291) Status: Active Migraine headache (346.90, G43.909) Status: Active Dizziness (780.4, R42) Status: Active Otitis, serous (381.4, H65.90) Status: Active Fatty liver (571.8, K76.0) Status: Active Dyspepsia (536.8, R10.13) Status: Active Hemorrhoid (455.6, K64.9) Status: Active Acute upper respiratory infection (465.9, J06.9) Status: Active Diabetes mellitus type 2, uncontrolled (250.02, E11.65) Status: Active Medications Name Dates Details Atorvastatin Calcium 20 MG Oral Tablet Active Lisinopril 5 MG Oral Tablet TAKE ONE TABLET ONCE DAILY * Quantity: 90 Refills: 1 KALI KERNS M.D. * Start : 02-Oct-2013 Active Metoprolol Tartrate 100 MG Oral Tablet TAKE 1 TABLET EVERY 12 HOURS DAILY. * Refills: 0 Active Promethazine HCl - 25 MG Oral Tablet TAKE 1 TABLET EVERY 6 HOURS NEEDED FOR NAUSEA. * Quantity: 30 Refills: 3 ADONIS HERNANDEZ M.D. Active Montelukast Sodium 10 MG Oral Tablet TAKE 1 TABLET BY MOUTH EVERY DAY * Quantity: 90 Refills: 0 ADONIS HERNANDEZ M.D. * Start : 13-May-2017 Active Levocetirizine Dihydrochloride 5 MG Oral Tablet TAKE 1 TABLET Daily PRN sinus allergies * Quantity: 30 Refills: 2 SUDHA P.ARODDY Bass * Start : 05-Jul-2016 Active Jardiance 25 MG Oral Tablet 1 tablet PO every morning * Quantity: 30 Refills: 2 PEARL M.Olive., REZA * Start : 14-May-2015 Active Janumet 50-1000 MG Oral Tablet TAKE 1 TABLET BY MOUTH TWICE DAILY WITH MEALS * Quantity: 60 Refills: 2 PEARL M.D., REZA * Start : 13-Nov-2015 Active NovoLOG FlexPen 100 UNIT/ML Subcutaneous Solution Pen-injector inject 4 U wB, 5 U w/L, and 7 U w/D plus 2-3 U for bedtime snack on week and 6 U qAC on wknds plus CF 1:50>150 mg/dL MDD:30 U * Quantity: 1 Refills: 4 PEARL Sarah.Olive., REZA * Start : 23-Feb-2016 Active 5 x 3 ML Pen BD Pen Needle Sybil U/F 32G X 4 MM use to inject 4xs daily * Quantity: 1 Refills: 2 PEARL Carson, REZA * Start : 23-Feb-2016 Active 200 Unit Box Clopidogrel Bisulfate 75 MG Oral Tablet TAKE 1 TABLET DAILY. * Refills: 0 Active Divalproex Sodium 250 MG Oral Tablet Delayed Release TAKE 1 TABLET 3 TIMES DAILY. * Refills: 0 Active TraMADol HCl - 50 MG Oral Tablet TAKE 1 TABLET EVERY 4 TO 6 HOURS NEEDED FOR PAIN. * Quantity: 180 Refills: 0 NOWAK N.P., MARIE * Start : 25-Mar-2016 Active Mirapex 0.25 MG Oral Tablet * Refills: 0 Active Gayatri Contour Next Test In Vitro Strip Check BG 4x a day * Quantity: 2 Refills: 2 REZA KANG M.D. * Start : 16-Dec-2016 Active 100 Strip Box Isosorbide Mononitrate ER 30 MG Oral Tablet Extended Release 24 Hour * Refills: 0 Active Microlet Lancets Check blood sugar 3 times a day. * Quantity: 300 Refills: 0 PEARL Carson, REZA * Start : 20-Jan-2017 Active Touhenry SoloStar 300 UNIT/ML Subcutaneous Solution Pen-injector inject 10 U SC qHS MDD:30 U * Quantity: 1 Refills: 2 PEARL Carson, REZA * Start : 18-Mar-2017 Active 3 x 1.5 ML Pen Allergies and Adverse Reactions Name Dates Details Demerol TABS (Allergy) Status: Active Past Medical History Name Dates Details History of Acute Myocardial Infarction (V12.59) Status: Resolved History of type 2 diabetes mellitus (V12.29, Z86.39) Status: Resolved Procedures Procedure Dates Details History of Cath Stent Placement Completed History of Wrist Surgery Completed History of Back Surgery Completed History of Cholecystectomy Completed Immunization Name Dates Details Influenza on: 31-Dec-2009 Fluvirin INJ Lot #: [id number] on: 24-Jan-2014 Influenza on: 19-Jan-2016 Influenza on: 04-Dec-2016 Family History Name Dates Details Family history of Hypertension (V17.49) Comments: Family History Status: Active Name Dates Details Family history of diabetes mellitus (V18.0, Z83.3) Status: Active Family history of hypertension (V17.49, Z82.49) Status: Active Family history of hyperlipidemia (V18.19, Z83.49) Status: Active Social History Name Dates Details - Status: Name Dates Details Former smoker Vital Signs Date Test Result Details No Known Vitals to report Results Date Description Value Details Results not documented Plan of Care Name Dates Details Planned Observations Planned Goals not documented Planned Encounters Appointment; REZA KANG M.D. On: 20-Jun-2017 16:00 Instructions Name Dates Details Instructions not documented Encounters Appointment; REZA KANG M.D. Encounter Diagnosis: Problem not documented On: 14-May-2015 14:00 Appointment; ADONIS HERNANDEZ M.D. Encounter Diagnosis: Problem not documented On: 26-Jul-2015 10:15 Appointment; REZA KANG M.D. Encounter Diagnosis: Problem not documented On: 07-Aug-2015 14:00 Appointment; ADONIS HERNANDEZ M.D. Encounter Diagnosis: Problem not documented On: 16-Aug-2015 9:15 Appointment; DIEGO BERRIOS M.D. Encounter Diagnosis: Problem not documented On: 15-Sep-2015 15:00 Appointment; DIEGO BERRIOS M.D. Encounter Diagnosis: Problem not documented On: 23-Sep-2015 15:45 Appointment; RODDY HALEY P.A. Encounter Diagnosis: Problem not documented On: 08-Oct-2015 9:30 Appointment; REZA KANG M.D. Encounter Diagnosis: Problem not documented On: 13-Nov-2015 15:30 Appointment; REZA KANG M.D. Encounter Diagnosis: Problem not documented On: 23-Feb-2016 8:00 Appointment; DIEGO BERRIOS M.D. Encounter Diagnosis: Problem not documented On: 25-Mar-2016 13:00 Appointment; MARIE NOWAK NP Encounter Diagnosis: Problem not documented On: 25-Mar-2016 18:45 Appointment; REZA KANG M.D. Encounter Diagnosis: Problem not documented On: 03-May-2016 14:00 Appointment; REZA KANG M.D. Encounter Diagnosis: Problem not documented On: 03-Aug-2016 16:00 Appointment; REZA KANG M.D. Encounter Diagnosis: Problem not documented On: 16-Dec-2016 16:00 Appointment; ADONIS HERNANDEZ M.D. Encounter Diagnosis: Problem not documented On: 19-Feb-2017 10:15 Appointment; REZA KANG M.D. Encounter Diagnosis: Problem not documented On: 18-Mar-2017 16:00
--- OUTSIDE RECORDS SUMMARY | 2018-02-14 09:33 | XMS REPORT ---
Author Author Lucinda Combs Organization [employer] Address Unknown Phone Unavailable Care Team Providers Care Food And Beverage Operations Manager Name Role Phone Lucinda Combs CP Unavailable Allergies No Known Allergies Problems Problem Type Condition Code Onset Dates Condition Status Problem Diabetes mellitus with complication E11.8 Active Assessment CAD in [place] artery I25.10 Active Problem Angina of effort I20.8 Active Problem Abnormal EKG R94.31 Active Problem Palpitations R00.2 Active Problem S/P PTCA (percutaneous transluminal coronary angioplasty) Z98.61 Active Problem Benign hypertensive heart disease I11.9 Active Problem CAD in [place] artery I25.10 Active Problem Pure hypercholesterolemia E78.01 Active Medications Medication Code System Code Instructions Start Date End Date Status Dosage Lisinopril [facility] 32873765682 5 MG Orally Once a day Active 1 tablet Results No Known Results Summary Purpose eClinicalWorks Submission
--- OUTSIDE RECORDS SUMMARY | 2018-02-14 09:33 | XMS REPORT ---
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 August 02, 2013 Alcohol Use No. August 02, 2013 Alcohol Screening: No. Points: 0, Interpretation: Negative August 02, 2013 Tobacco Use: . August 02, 2013 Marital Status: . August 02, 2013 Do you drink alcohol? No. 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
--- OUTSIDE RECORDS SUMMARY | 2018-02-14 09:33 | XMS REPORT ---
Author Author Lucinda Combs Organization [employer] Address Unknown Phone Unavailable Care Team Providers Care Labor Relations Teacher Name Role Phone Lucinda Combs CP Unavailable Allergies No Known Allergies Problems Problem Type Condition Code Onset Dates Condition Status Problem Diabetes mellitus with complication E11.8 Active Assessment CAD in [place] artery I25.10 Active Problem Angina of effort I20.8 Active Problem Abnormal EKG R94.31 Active Problem Palpitations R00.2 Active Problem S/P PTCA (percutaneous transluminal coronary angioplasty) Z98.61 Active Problem Benign hypertensive heart disease I11.9 Active Problem CAD in [place] artery I25.10 Active Problem Pure hypercholesterolemia E78.01 Active Medications Medication Code System Code Instructions Start Date End Date Status Dosage Lisinopril [facility] 28114927010 5 MG Orally Once a day Active 1 tablet Results No Known Results Summary Purpose eClinicalWorks Submission
[2018-02-14] MEDS: VANCOMYCIN 1GM/NS 250 ML 250 ML IV SCH ×2 (10:36→23:00)
[2018-02-14 10:45] LABS: BASOPHILS % 0.2 % (0.0-1.0); EOSINOPHILS % 0.1 % (0.0-6.0); HEMATOCRIT 48.5 % (38.2-49.6); HEMOGLOBIN 15.4 g/dL (14.0-18.0); LYMPHOCYTES # (AUTO) 0.3 (1.0-3.2); LYMPHOCYTES % 2.5 % (18.0-39.1); MEAN CORPUSCULAR HEMOGLOBIN 24.1 pg (28-32); MEAN CORPUSCULAR HGB CONC 31.8 g/dL (31-35); MONOCYTES # (AUTO) 0.7 (0.2-0.8); MONOCYTES % 5.3 % (4.4-11.3); NEUTROPHILS # (AUTO) 12.1 (2.1-6.9); NEUTROPHILS % 91.4 % (38.7-80.0); PLATELET COUNT 270 x10e3/uL (140-360); RED BLOOD COUNT 6.38 x10e6/uL (4.3-5.7)
[2018-02-14] MEDS ORDERED: KETOROLAC TROMETHAMINE 30 MG/ML VIAL IV ONE (11:00)
[2018-02-14 11:03] LABS: ALBUMIN 3.8 g/dL (3.5-5.0); ALBUMIN/GLOBULIN RATIO 0.7 (0.8-2.0); ANION GAP 20.1 mmol/L (8-16); CALCIUM 9.9 mg/dL (8.4-10.2); CREATININE, SERUM 1.37 mg/dL (0.72-1.25); POTASSIUM 4.1 mmol/L (3.5-5.1)
--- NOTE | 2018-02-14 11:29 | Diagnostic Imaging Report ---
Exam: Lower leg, 2 views History: Pain and swelling after puncture wound Comparison: None. Findings: There is normal bone mineralization. No acute, displaced fracture or dislocation. Joint spaces are relatively well-preserved. No cortical erosion or destruction. No abnormal soft tissue calcification or soft tissue defect. No significant soft tissue swelling. Impression: 1. No acute abnormalities. Signed by: Dr. Bobby Monteiro M.D. on 02/14/2018 11:25 AM
[2018-02-14] MEDS ORDERED: SODIUM CHLORIDE 0.9% 1000ML 2,000 ML IV ONE (11:45)
[2018-02-14] MEDS ORDERED: ONDANSETRON HCL INJ 2 MG/ML VIAL IV PRN (12:00)
[2018-02-14] MEDS ORDERED: SODIUM CHLORIDE FLUSH 10 ML SYR INJ PRN (12:00)
[2018-02-14] MEDS ORDERED: DEXTROSE 50% SYRINGE 50 ML IV PRN (12:15)
[2018-02-14] MEDS: PIPER-TAZ 3.375 GM 50 ML IV SCH ×2 (12:33→22:00)
--- OUTSIDE RECORDS SUMMARY | 2018-02-14 13:03 | XMS REPORT | Clinical Summary ---
Author Author Rajiv [facility] Organization [facility] Address Unknown Phone Unavailable Care Team Providers Care Inspector Floor Sub Assembly Name Role Phone Asked, No Pcp PCP [...] Med Refill 01/08/2018 Refill Cardiology Rehrer, DO Dina Ramos Anh Truong, MD Precordial chest pain [...] MMODE SPECTRAL 2:50 PM CDT COLOR DOPPLER ([id number]) POC GLUCOSE Routine 12/22/2017 1:22 PM CDT [...] glucose 217 (H) 65 - 99 mg/dL [facility] DEPARTMENT OF Comment: PATHOLOGY AND H Notified RN [facility] MEDICINE Meter ID: [id number] Rehabilitation Psychologist: mau spivey Performing Organization Address City/State/Zipcode Phone Number [facility] DEPARTMENT OF [address] [place] [address] PATHOLOGY AND GENOMIC MEDICINE * Cv ecg exercise stress (nuclear or echo) (12/23/2017 12:42 PM CDT) Resting HR 69 [facility] MUSE Resting BP 143 [facility] MUSE Peak MET Achieved 1.0 [facility] MUSE Protocol Name CELY [facility] M[facility] Time in Exercise Phase 00:01:00 [facility] Max Systolic BP 145 [facility] M[facility] Max Diastolic BP 87 [facility] M[facility] Max Heart Rate 102 [facility] M[facility] Max Predicted Heart Rate 171 [facility] M[facility] Target HR Formula (220 - Age)*100% [facility] MUSE Test Indication chest pain [facility] MUSE Arrhy During Ex [facility] M[facility] ECG Interp Before EX [facility] M[facility] ECG Interp During Ex [facility] Ex Summary Comment [facility] M[facility] Overall HR Response to [facility] M[facility] Exercise Overall BP Response To [facility] M[facility] Exercise Reason for Termination [facility] M[facility] Stress Test Impression -Waveform interpreted in [facility] report associated with image study. No interpretation is provided as part of this Stress ECG report.-Electronically Signed By Baldemar Law MD ([id number]), editorial specialist Fiorella Conrad ([id number]) on 12/23/2017 2:08:09 PM Performing Organization Address [facility] Phone Number [facility] [address] [place] [address] * Myocardial perfusion (12/23/2017 12:42 PM CDT) Only the most recent of 2 results within the time period is included. Narrative Performed At [facility] Nuclear Cardiology and Cardiac CT [address] [place] [id number] Myocardial Perfusion Imaging Report Stress ECG tracings are available in MUSE, EPIC and CV Web All ECG interpretations are included in this report Pat.Name:HANG TOM Pat.ID:[id number] .Date: 12/23/2017Refer.MD:CORINE GIBSON MD Exam Time: 11:50:00 AM Study Type:Myocardial Perfusion Imaging Height:63inWeight:173lb BSA: 1.82 m2 DOBAge:1970,47Y Sex: MALEBP:143/92 HR:71 bpmHCT: 47 % Nuclear Tech:BETY Noland, ARRT, Gena Santa JOSE LUIS, NMTCB Pat. Stat.:Inpatient Room:V306Himpdhx Event ID:[id number] Order ID:[id number] Reason for Study:Eval for Ischemia, Chest pain History / Clinical:Diabetes, Hyperlipidemia, Hypertension Procedures:Low Dose Stress Only Race:C Risk Factors:Known Coronary Atherosclerosis, Diabetes, Hyperlipidemia, Hypertension, Prior ID Clinical Symptoms:Regadenoson Physical Exam:S1, S2 Surgery: Serum [...] CDT Nuclear Cardiology and Cardiac CT [address] [place] [address] Myocardial Perfusion Imaging Report Stress ECG tracings are available in [employer], [employer] and [employer] All ECG interpretations are included in this report Pat.Name: HANG TOM Pat.ID: [id number] .Date: 12/23/2017 Refer.MD: CORINE GIBSON MD Exam Time: 11:50:00 AM Study Type:Myocardial Perfusion Imaging Height: 63in Weight: 173lb BSA: 1.82 m2 Age: 10 1970,47Y Sex: MALE BP: 143/92 HR: 71 bpm HCT: 47 % Nuclear Tech:Anselmo Maloney, ASSISTIVE TECHNOLOGY SPECIALIST, ARRT, Gena Santa, ARRT, NMTCB Pat. Stat.:Inpatient Room: J809 Nuclear Event ID:[id number] Order ID: [id number] Reason for Study:Eval for Ischemia, Chest pain History / Clinical:Diabetes, Hyperlipidemia, Hypertension Procedures:Low Dose Stress Only Race: C Risk Factors:Known Coronary Atherosclerosis, Diabetes, Hyperlipidemia, Hypertension, Prior ID Clinical Symptoms:Regadenoson Physical Exam:S1, S2 Surgery: Serum [...] PM Baldemar Law MD Performing Organization Address City/State/[facility] Cent[facility] Phone Number [facility] [address] [place] [address] * Estimated GFR (12/23/2017 4:23 AM CDT) Only the most recent of 2 results within the time period is included. Estimated GFR 79 mL/min/1.73 m2 [facility] DEPARTMENT OF Comment: PATHOLOGY AND Cater[employer]oryUnitsInte GENOMIC MEDICINE rpretation G1 >=90 Normal or high G2 60-89Mildly decreased T2j85-26 Mildly to moderately decreased Q6i90-32 Moderately to severely decreased G4 15-29Severely decreased G5 <15Kidney failure The eGFR was calculated using the Chronic Kidney Disease Epidemiology Collaboration (CKD-EPI) equation. Interpretation is based on recommendations of the National Kidney Foundation-Kidney Disease Outcomes Quality Initiative (NKF-KDOQI) published in 2014. Specimen Plasma specimen Performing Organization Address [facility] Phone Number [facility] [place] [address] PATHOLOGY AND GENOMIC MEDICINE * Troponin (12/23/2017 4:23 AM CDT) Only the most recent of 5 results within the time period is included. Troponin <0.30 0.00 - 0.30 ng/mL [facility] DEPARTMENT OF Comment: PATHOLOGY AND 0.30 - 1.49 GENOMIC MEDICINE ng/mlMay indicate increased risk of acute coronary syndrome. >=1.5 ng/ml Consistent with acute myocardial infarction. The diagnostic value of a single normal or non-diagnostic result is questionable.Serial samples at 2-6 hour intervals are required to rule out acute myocardial injury. Specimen Plasma specimen Performing Organization Address [facility] Centercode Phone Number [facility] DEPARTMENT OF [address] [place] [address] PATHOLOGY AND GENOMIC MEDICINE * Lactic acid level (12/23/2017 4:23 AM CDT) Lactic acid 2.8 (H) 0.5 - 2.2 mmol/L [facility] DEPARTMENT OF PATHOLOGY AND GENOMIC MEDICINE Specimen Plasma specimen Performing Organization Address [facility] Cent[facility]ode Phone Number [facility] DEPARTMENT OF [address] [place] [address] PATHOLOGY AND GENOMIC MEDICINE * Hemoglobin A1c (12/23/2017 4:23 AM CDT) Hemoglobin A1C 8.0 (H) 4.0 - 5.6 % [facility] DEPARTMENT OF Comment: PATHOLOGY AND [...] 1 diabetes. Specimen Blood Performing Organization Address City/[facility] [place] [address] PATHOLOGY AND GENOMIC MEDICINE * Valproic acid level (12/23/2017 4:23 AM CDT) Valproic acid 56.3 50.0 - 100.0 ug/mL [facility] DEPARTMENT OF Comment: PATHOLOGY AND Therapeutic Range: GENOMIC MEDICINE 50 - 100 ug/mL Specimen Plasma specimen Performing Organization Address [facility] [place] [address] PATHOLOGY AND GENOMIC MEDICINE * Basic metabolic panel (12/23/2017 4:23 AM CDT) Only the most recent of 3 results within the time period is included. Sodium 139 135 - 148 mEq/L [facility] DEPARTMENT OF PATHOLOGY AND GENOMIC MEDICINE Potassium 4.2 3.5 - 5.0 mEq/L [facility] DEPARTMENT OF PATHOLOGY AND GENOMIC MEDICINE Chloride 101 98 - 112 mEq/L [facility] DEPARTMENT OF PATHOLOGY AND GENOMIC MEDICINE CO2 26 24 - 31 mEq/L [facility] DEPARTMENT OF PATHOLOGY AND GENOMIC MEDICINE Anion gap 12@ANIO 7 - 15 mEq/L [facility] DEPARTMENT OF PATHOLOGY AND GENOMIC MEDICINE BUN 11 6 - 20 mg/dL [facility] DEPARTMENT OF PATHOLOGY AND GENOMIC MEDICINE Creatinine 1.09 0.70 - 1.20 mg/dL [facility] DEPARTMENT OF PATHOLOGY AND GENOMIC MEDICINE Glucose 95 65 - 99 mg/dL [facility] DEPARTMENT OF PATHOLOGY AND GENOMIC MEDICINE Calcium 9.2 8.3 - 10.2 mg/dL [facility] DEPARTMENT OF PATHOLOGY AND GENOMIC MEDICINE Specimen Plasma specimen Performing Organization Address City/[facility] [place] [address] PATHOLOGY AND GENOMIC MEDICINE * CT Chest [...] SUMMARY: No acute or suspicious finding identified. [facility]-[id number] Procedure Note Interface, Radiology Results Incoming - [...] SUMMARY: No acute or suspicious finding identified. [facility]-[id number] Performing Organization Address City/State/Zipcode Phone Number [facility] [address] [place] [address] * Lactic acid level, SEPSIS - Now and repeat 2x every 3 hours (12/22/2017 2:59 PM CDT) Only the most recent of 2 results within the time period is included. Lactic acid 4.9 (HH) 0.5 - 2.2 mmol/L [facility] DEPARTMENT OF PATHOLOGY AND GENOMIC MEDICINE Specimen Blood Performing Organization Address City/State/Zipcode Phone Number [facility] DEPARTMENT OF [address] [place] [address] PATHOLOGY AND GENOMIC MEDICINE * Echocardiogram complete w contrast and 3D if needed (12/22/2017 2:50 PM CDT) Narrative Performed At [facility] Echocardiography Report [id number] [facility] [address], [place] [address] Pat.Name:HANG TOM Pat.ID:[id number] .Date: 12/22/2017Refer.MD:ILDA GIBSON MD Exam Time: 2:27:00 PMStudy Type:Routine Echo Height:63inWeight:175lb BSA: 1.83 m2 DOBAge:1970,47Y Sex: MALEBP:101/51 HR:86 bpm Sonogrphr: Chapis Shine RDCS, RVT/ Lilliana Mendez (student) Pat. Stat.:Inpatient Room:[facility] Study Status:Final Echo Event ID:[id number] Order ID:[id number] Reason for Study:Hypertension - Initial eval of [...] PA systolic pressure. MEASUREMENTS: 2D Parasternal [place] LVOT 2 cmLA Ds3.5 cm LVIDd4.3 cmIndex2.3 cm/m Ao An2 cm LVIDs2.6 cmAo Rtd 3 cm Index1.7 cm/m LV%fs 39 % LV Wqlj619.9 g(122-174) IVSd 1.2 cmLVM Index 97.7 g/m2 LVPWd1.2 cmRWT0.6 LA Sng Plane LA Area 14.5 cm2(8.8-23.4) LA Vol30.5 ml Index16.7 ml/m LA LngAx 5.8 cm DOPPLER LVOT Stroke Vol LVOT 2 cmLVOT CO5.2 l/min LVOT TVI19.6 cmLVOT CI2.8 l/m/m2 LVOT Tm297 [id number] bpm LVOT SV 61.4 ml Signed 12/22/2017 04:15 PM Anjel Portillo M.D. Procedure Note Interface, Radiology Results In - 12/22/2017 4:15 PM CDT Echocardiography Report [address] [address] Pat.Name: HANG TOM.ID: [id number] .Date: 12/22/2017 Refer.MD: ILDA GIBSON MD Exam Time: 2:27:00 PM Study Type:Routine Echo Height: 63in Weight: 175lb BSA: 1.83 m2 Age: 10 1970,47Y Sex: MALE BP: 101/51 HR: 86 bpm Sonogrphr: Chapis Shine, GABRIEL, RVT/ Lilliana Mendez (student) Pat. Stat.:Inpatient Room: [facility] Study Status:Final Echo Event ID:[id number] Order ID: [id number] Reason for Study:Hypertension - Initial eval of [...] PA systolic pressure. MEASUREMENTS: 2D Parasternal [place] LVOT 2 cm LA Ds 3.5 cm [...] Organization Address City/State/Zipcode Phone Number [facility] [address] [place] [address] * ECG ED Preliminary Interpretation - NOT AN ORDER (12/22/2017 10:31 AM CDT) Narrative Performed At Attila Rosales DO 12/22/20171:52 PM ECG ED Preliminary Interpretation - Not an Order Performed by: ATTILA ROSALES Authorized by: ATTILA ROSALES ECG reviewed by ED Physician in the absence of a wooden barrel mechanic: yes Previous ECG: Previous ECG:Compared to current [...] Regional osseous structures remain normal in appearance. [id number] Procedure Note [facility], Radiology Results Incoming - 12/22/2017 9:41 AM CDT EXAMINATION: XR CHEST 1 VW PORTABLE CLINICAL HISTORY: Chest pain concern for ACs COMPARISON: 05/20/2017. IMPRESSION: 1. LINES/TUBES: None. 2. LUNGS: Clear. 3. HEART: Heart size is normal.. 4. PLEURA: No evidence for pleural effusion or pneumothorax.. 5. OTHER: Regional osseous structures remain normal in appearance. [id number] Performing Organization Address [facility] [place] [address] * Partial thromboplastin time, activated (12/22/2017 9:18 AM CDT) PTT 31.1 23.0 - 36.0 sec [facility] DEPARTMENT OF Comment: PATHOLOGY AND PTT therapeutic range for [facility] MEDICINE unfractionated heparin is 61.0-112.0 seconds which corresponds to Anti-Xa 0.3-0.7 U/ml. Specimen Blood Performing Organization Address [facility] [place] [address] PATHOLOGY AND GENOMIC MEDICINE * Prothrombin time with INR (12/22/2017 9:18 AM CDT) Prothrombin time 12.8 12.0 - 15.0 sec [facility] DEPARTMENT OF PATHOLOGY AND GENOMIC MEDICINE INR 1.0 [facility] DEPARTMENT OF Comment: PATHOLOGY AND The International Normalized GENOMIC MEDICINE Ratio (INR) is a therapeutic monitoring tool for patients who are stable on oral anticoagulant therapy. An INR of 2.0-3.0 is suggested for deep vein thrombosis/pulmonary embolism. Specimen Blood Performing Organization Address [facility] Phone Number [facility] [place] [address] PATHOLOGY AND GENOMIC MEDICINE * CBC with platelet and differential (12/22/2017 9:18 AM CDT) Only the most recent of 3 results within the time period is included. WBC 9.19 4.50 - 11.00 k/uL [facility] DEPARTMENT OF PATHOLOGY AND GENOMIC MEDICINE RBC 6.07 (H) 4.40 - 6.00 m/uL [facility] DEPARTMENT OF PATHOLOGY AND GENOMIC MEDICINE HGB 14.4 14.0 - 18.0 g/dL [facility] DEPARTMENT OF PATHOLOGY AND GENOMIC MEDICINE HCT 47.0 41.0 - 51.0 % [facility] DEPARTMENT OF PATHOLOGY AND GENOMIC MEDICINE MCV 77.4 (L) 82.0 - 100.0 fL [facility] DEPARTMENT OF PATHOLOGY AND GENOMIC MEDICINE MCH 23.7 (L) 27.0 - 34.0 pg [facility] DEPARTMENT OF PATHOLOGY AND GENOMIC MEDICINE MCHC 30.6 (L) 31.0 - 37.0 g/dL [facility] DEPARTMENT OF PATHOLOGY AND GENOMIC MEDICINE RDW - SD 48.0 37.0 - 55.0 fL [facility] DEPARTMENT OF PATHOLOGY AND GENOMIC MEDICINE MPV 10.2 8.8 - 13.2 fL [facility] DEPARTMENT OF PATHOLOGY AND GENOMIC MEDICINE Platelet count 267 150 - 400 k/uL [facility] DEPARTMENT OF PATHOLOGY AND GENOMIC MEDICINE Nucleated RBC 0.00 /100 WBC [facility] DEPARTMENT OF PATHOLOGY AND GENOMIC MEDICINE Neutrophils 66.9 39.0 - 69.0 % [facility] DEPARTMENT OF PATHOLOGY AND GENOMIC MEDICINE Lymphocytes 21.5 (L) 25.0 - 45.0 % [facility] DEPARTMENT OF PATHOLOGY AND GENOMIC MEDICINE Monocytes 9.5 0.0 - 10.0 % [facility] DEPARTMENT OF PATHOLOGY AND GENOMIC MEDICINE Eosinophils 1.2 0.0 - 5.0 % [facility] DEPARTMENT OF PATHOLOGY AND GENOMIC MEDICINE Basophils 0.5 0.0 - 1.0 % [facility] DEPARTMENT OF PATHOLOGY AND GENOMIC MEDICINE Immature granulocytes 0.4Comment: "Immature 0.0 - 1.0 % [facility] DEPARTMENT OF granulocytes" (promyelocytes, PATHOLOGY AND myelocytes, metamyelocytes) GENOMIC MEDICINE Specimen Blood Performing Organization Address City/[facility]/Zipcode Phone Number [facility] [place] [address] PATHOLOGY AND GENOMIC MEDICINE * Phosphorus level (12/22/2017 9:18 AM CDT) Phosphorus 2.7 2.4 - 4.5 mg/dL [facility] DEPARTMENT OF PATHOLOGY AND GENOMIC MEDICINE Specimen Plasma specimen Performing Organization Address City/[facility] Cent[facility]ode Phone Number [facility] [place] [address] PATHOLOGY AND GENOMIC MEDICINE * B natriuretic peptide (12/22/2017 9:18 AM CDT) Only the most recent of 2 results within the time period is included. BNP 3 0 - 100 pg/mL [facility] DEPARTMENT OF PATHOLOGY AND GENOMIC MEDICINE Specimen Blood Performing Organization Address City/[facility] [place] [address] PATHOLOGY AND GENOMIC MEDICINE * Magnesium level (12/22/2017 9:18 AM CDT) Magnesium 1.9 1.6 - 2.6 mg/dL [facility] DEPARTMENT OF PATHOLOGY AND GENOMIC MEDICINE Specimen Plasma specimen Performing Organization Address [facility] [place] [address] PATHOLOGY AND GENOMIC MEDICINE * Creatine kinase, total (CPK) (12/22/2017 9:18 AM CDT) Creatine kinase 135 39 - 308 U/L [facility] DEPARTMENT OF PATHOLOGY AND GENOMIC MEDICINE Specimen Plasma specimen Performing Organization Address [facility] [place] [address] PATHOLOGY AND GENOMIC MEDICINE * Hepatic function panel (12/22/2017 9:18 AM CDT) Albumin 3.6 3.5 - 5.0 g/dL [facility] DEPARTMENT OF PATHOLOGY AND GENOMIC MEDICINE Total bilirubin 0.4 0.0 - 1.2 mg/dL [facility] DEPARTMENT OF PATHOLOGY AND GENOMIC MEDICINE Bilirubin direct <0.2 0.0 - 0.3 mg/dL [facility] DEPARTMENT OF PATHOLOGY AND GENOMIC MEDICINE Alkaline phosphatase 55 40 - 129 U/L [facility] DEPARTMENT OF PATHOLOGY AND GENOMIC MEDICINE Protein 8.1 6.3 - 8.3 g/dL [facility] DEPARTMENT OF Comment: PATHOLOGY AND GENOMIC MEDICINE 4.6-7.0 g/dL 1 week 4.4-7.6 g/dL 7 months-1year 5.1-7.3 g/dL 1-2 years5.6-7 .5 g/dL >3 years6.0-8 .0 g/dL 18-150 6.3-8.3 g/dL ALT 20 5 - 50 U/L [facility] DEPARTMENT OF PATHOLOGY AND GENOMIC MEDICINE AST 23 10 - 50 U/L [facility] DEPARTMENT OF PATHOLOGY AND GENOMIC MEDICINE Specimen Plasma specimen Performing Organization Address [facility] Phone Number [facility] [place] [address] PATHOLOGY AND GENOMIC MEDICINE * ECG 12 lead (12/22/2017 8:55 AM CDT) Only the most recent of 2 results within the time period is included. Ventricular rate 91 [facility] Atrial rate 91 [facility] MN interval 146 [facility] QRSD interval 120 [facility] QT interval 328 [facility] QTC interval 403 [facility] P axis 1 17 [facility] QRS axis 1 -57 [facility] T wave axis 90 [facility] MUSE EKG impression Normal sinus rhythm-Left [facility] MUSE anterior fascicular block-Left ventricular hypertrophy with QRS widening and repolarization abnormality-Abnormal ECG-No previous ECGs available- Performing Organization Address [facility] Phone Number [facility] MUSE [address] [place] [address] * Cv ecg exercise stress (nuclear or echo) (05/21/2017 12:20 PM CDT) Resting HR 69 [facility] Resting BP 127 [facility] Peak MET Achieved 1.0 [facility] MUSE Protocol Name REGADENO [facility] MUSE Time in Exercise Phase 00:01:00 [facility] Max Systolic BP 147 [facility] Max Diastolic BP 83 [facility] Max Heart Rate 101 [facility] Max Predicted Heart Rate 171 [facility] Target HR Formula (220 - Age)*100% H MUSE Test Indication chest pain [facility] MUSE Stress Test Impression -Waveform interpreted in [facility] MUSE report associated with image study. No interpretation is provided as part of this Stress ECG report.-Electronically Signed By Wilman Mendez MD ([id number]), editorial specialist Fiorella Conrad ([id number]) on 05/21/2017 11:49:39 AM Target HR 145.35 bpm [facility] MUSE Performing Organization Address [facility] Phone Number [facility] MUSE [address] [place] [address] * Estimated GFR (05/21/2017 4:00 AM CDT) Only the most recent of 2 results within the time period is included. GFR Non Af Amer 64 mL/min/1.73 m2 [facility] DEPARTMENT OF PATHOLOGY AND GENOMIC MEDICINE GFR Af Amer 78 mL/min/1.73 m2 [facility] DEPARTMENT OF Comment: PATHOLOGY AND [...] specimen Performing Organization Address City/State/Zipcode Phone Number [facility] DEPARTMENT OF [address] [place] [address] PATHOLOGY AND GENOMIC MEDICINE * Lipid panel (05/21/2017 4:00 AM CDT) Cholesterol 106 <200 mg/dL [facility] DEPARTMENT OF PATHOLOGY AND GENOMIC MEDICINE Triglycerides 148 <150 mg/dL [facility] DEPARTMENT OF PATHOLOGY AND GENOMIC MEDICINE HDL cholesterol 32 (L) >40 mg/dL [facility] DEPARTMENT OF PATHOLOGY AND GENOMIC MEDICINE LDL cholesterol 63Comment: Result obtained by <100 mg/dL [facility] DEPARTMENT OF direct LDL measurement PATHOLOGY AND GENOMIC MEDICINE Lipid panel SeeBelow [facility] DEPARTMENT OF interpretation Comment: PATHOLOGY [...] specimen Performing Organization Address City/State/Zipcode Phone Number [facility] [address] [place] [address] PATHOLOGY AND GENOMIC MEDICINE * Comprehensive metabolic panel (05/20/2017 10:05 AM CDT) Sodium 144 135 - 148 mEq/L [facility] DEPARTMENT OF PATHOLOGY AND GENOMIC MEDICINE Potassium 4.7 3.5 - 5.0 mEq/L [facility] DEPARTMENT OF PATHOLOGY AND GENOMIC MEDICINE Chloride 101 98 - 112 mEq/L [facility] DEPARTMENT OF PATHOLOGY AND GENOMIC MEDICINE CO2 29 24 - 31 mEq/L [facility] DEPARTMENT OF PATHOLOGY AND GENOMIC MEDICINE Anion gap 14 7 - 15 mEq/L [facility] DEPARTMENT OF Comment: PATHOLOGY AND Starting from June GENOMIC MEDICINE , anion gap calculation no longer incorporates potassium. Please note the change. BUN 8 6 - 20 mg/dL [facility] DEPARTMENT OF PATHOLOGY AND GENOMIC MEDICINE Creatinine 1.1 0.7 - 1.2 mg/dL [facility] DEPARTMENT OF PATHOLOGY AND GENOMIC MEDICINE Glucose 113 (H) 65 - 99 mg/dL [facility] DEPARTMENT OF PATHOLOGY AND GENOMIC MEDICINE Calcium 10.1 8.3 - 10.2 mg/dL [facility] DEPARTMENT OF PATHOLOGY AND GENOMIC MEDICINE Protein 7.8 6.3 - 8.3 g/dL [facility] DEPARTMENT OF Comment: PATHOLOGY AND GENOMIC MEDICINE 4.6-7.0 g/dL 1 week 4.4-7.6 g/dL 7 months-1year 5.1-7.3 g/dL 1-2 years5.6-7 .5 g/dL >3 years6.0-8 .0 g/dL 18-150 6.3-8.3 g/dL Albumin 3.6 3.5 - 5.0 g/dL [facility] DEPARTMENT OF PATHOLOGY AND GENOMIC MEDICINE A/G ratio 0.9 0.7 - 3.8 [facility] DEPARTMENT OF PATHOLOGY AND GENOMIC MEDICINE Alkaline phosphatase 47 40 - 129 U/L [facility] DEPARTMENT OF PATHOLOGY AND GENOMIC MEDICINE AST 24 10 - 50 U/L [facility] DEPARTMENT OF PATHOLOGY AND GENOMIC MEDICINE ALT 20 5 - 50 U/L [facility] DEPARTMENT OF PATHOLOGY AND GENOMIC MEDICINE Total bilirubin 0.4 0.0 - 1.2 mg/dL [facility] DEPARTMENT OF PATHOLOGY AND GENOMIC MEDICINE Specimen Plasma specimen Performing Organization Address City/[facility]/Zipcode Phone Number [facility] [address] [place] [address] PATHOLOGY AND GENOMIC MEDICINE after 02/13/2017 Insurance Payer Benefit Subscriber ID Type Phone Address Plan / Group BCBS BCBS xxxxxxxxxxxx PPO CHOICE PPO/VIOLA MEDRANO PPO Advance Directives Patient has advance care planning documents on file. For more information, malathi e contact: Rajiv Wallace [address] [place] [address]
--- OUTSIDE RECORDS SUMMARY | 2018-02-14 13:04 | XMS REPORT ---
Author Author [facility] Address Unknown Phone Unavailable Care Team Providers Care Florist Helper Name Role Phone Karl PHIPPS Unavailable Unavailable Problems This patient has no known problems. Allergies, Adverse Reactions, Alerts This patient has no known allergies or adverse reactions. Medications This patient has no known medications. Results Test Description Test Time Test Comments Text Results Atomic Results Result Comments LOWER LEG RIGHT 2018-02-14 11:24:00 [facility] [address] [address] Patient Name: HANG BURKS MR #: [id number] : 1970 Age/Sex: 47/M Req #: [id number] Adm Physician: Ordered by: ANTWAN PHIPPS MD Report #: [id number] Location: ER Room/Bed: Procedure: [id number] DX/LOWER LEG RIGHT Exam Date: 02/14/18 Exam Time: 1050 REPORT STATUS: Signed Exam: Lower leg, 2 views History: Pain and swelling after puncture wound Comparison: None. Findings: There is normal bone mineralization. No acute, displaced fracture or dislocation. Joint spaces are relatively well-preserved. No cortical erosion or destruction. No abnormal soft tissue calcification or soft tissue defect. No significant soft tissue swelling. Impression: 1. No acute abnormalities. Signed by: Dr. Ronnie Gurrola M.D. on 02/14/2018 11:25 AM Dictated By: RONNIE GURROLA MD 112 Transcribed By: VIOLET on 02/14/18 112 COPY TO: ANTWAN PHIPPS MD
--- NOTE | 2018-02-14 14:17 | Diagnostic Imaging Report ---
EXAM: Right Upper Quadrant Ultrasound INDICATION: ^Transaminitis COMPARISON: None. TECHNIQUE: Transverse and longitudinal images of the right upper abdomen were obtained. FINDINGS: Liver: Size: 17.8 cm in the right midclavicular line, enlarged Appearance: Increased echogenicity, smooth contour Mass: No focal masses Gallbladder: Absent Sonographic James's Sign: Negative Bile Ducts: Intrahepatic Ducts: No dilatation Extrahepatic Ducts: Common bile duct measures 0.3 cm, no dilatation Pancreas: Obscured by overlying bowel gas. Kidneys: Length: Right 11.5 cm Echogenicity: Normal Collecting System: No hydronephrosis Stone: None Cyst/Mass: 1.7 x 1.4 x 2.0 cm cystic, anechoic, mostly exophytic lesion in the superior pole, consistent with a simple cyst. Vessels: Aorta: The proximal portion is unremarkable. Mid and distal aorta are obscured by overlying bowel gas. Inferior Vena Cava: Visualized portions are normal Main Portal Vein: 0.9 cm, normal size with hepatopetal flow. Free Fluid: No ascites or pleural effusion IMPRESSION: 1. Hepatomegaly with diffuse fatty infiltration. No focal lesions. 2. Pancreas, mid and distal aorta could not be evaluated as they are obscured by overlying bowel gas. 3. 2.0 cm simple cyst in the right renal superior pole. Signed by: Dr. Bobby Monteiro M.D. on 02/14/2018 2:13 PM
[2018-02-14] MEDS: ACETAMINOPHEN 325 MG TAB PO PRN ×2 (17:25→21:30)
[2018-02-14 18:45] VITALS: BP 135/87
[2018-02-14 19:45] VITALS: BP 135/87
[2018-02-14 19:55] VITALS: BP 135/87
[2018-02-14] MEDS ORDERED: SODIUM CHLORIDE 0.9% 250ML 250 ML ONE (21:25)
[2018-02-14] MEDS ORDERED: BACTRIM DS TAB1 EACH PO (23:41)
[2018-02-14] MEDS ORDERED: JANUMET 50-1,01 EACH PO (23:41)
[2018-02-14] MEDS ORDERED: CLINDAMYCIN HC150 MG (23:41)
[2018-02-14] MEDS ORDERED: ISOSORBIDE MONO30 MG PO (23:41)
[2018-02-15] VITALS (8 sets, daily range): BP systolic 120–167; BP diastolic 66–105
[2018-02-15] MEDS: PIPER-TAZ 3.375 GM 50 ML IV SCH ×3 (05:23→21:13)
[2018-02-15] MEDS: ACETAMINOPHEN 325 MG TAB PO PRN ×2 (05:23→13:03)
[2018-02-15 05:32] LABS: BASOPHILS % 0.3 % (0.0-1.0); EOSINOPHILS % 0.6 % (0.0-6.0); HEMATOCRIT 45.5 % (38.2-49.6); HEMOGLOBIN 14.4 g/dL (14.0-18.0); LYMPHOCYTES # (AUTO) 0.4 (1.0-3.2); MEAN CORPUSCULAR HEMOGLOBIN 24.1 pg (28-32); MEAN CORPUSCULAR HGB CONC 31.6 g/dL (31-35); MEAN CORPUSCULAR VOLUME 76.1 fL (81-99); MONOCYTES # (AUTO) 0.7 (0.2-0.8); MONOCYTES % 10.3 % (4.4-11.3); NEUTROPHILS # (AUTO) 5.9 (2.1-6.9); NEUTROPHILS % 82.4 % (38.7-80.0); PLATELET COUNT 201 x10e3/uL (140-360); RED BLOOD COUNT 5.98 x10e6/uL (4.3-5.7); RED CELL DISTRIBUTION WIDTH 19.1 % (11.7-14.4)
[2018-02-15 05:51] LABS: ANION GAP 17.8 mmol/L (8-16); BLOOD UREA NITROGEN 10 mg/dL (7-26); BUN/CREATININE RATIO 9 (6-25); CALCIUM 9.2 mg/dL (8.4-10.2); CARBON DIOXIDE 19 mmol/L (22-29); CHLORIDE 100 mmol/L (98-107); CREATININE, SERUM 1.12 mg/dL (0.72-1.25); EST GLOMERULAR FILTRATION RATE > 60 ML/MIN (60-); GLUCOSE 95 mg/dL (74-118); POTASSIUM 3.8 mmol/L (3.5-5.1); SODIUM 133 mmol/L (136-145)
[2018-02-15] MEDS: VANCOMYCIN 1GM/NS 250 ML 250 ML IV SCH ×2 (10:41→23:00)
[2018-02-15] MEDS: TRAMADOL HCL 50 MG TAB PO PRN ×2 (11:00→19:43)
[2018-02-15] MEDS: DIVALPROEX SODIUM 250 MG TAB...DR PO SCH ×2 (15:00→21:13)
[2018-02-15] MEDS: METOPROLOL TARTRATE 50 MG TAB PO SCH (17:20)
[2018-02-15] MEDS: MONTELUKAST SODIUM 10 MG TAB PO SCH (17:20)
[2018-02-16] VITALS: BP 129/76
[2018-02-16 04:00] VITALS: BP 140/88
[2018-02-16] MEDS: PIPER-TAZ 3.375 GM 50 ML IV SCH ×3 (05:11→21:09)
[2018-02-16] MEDS: DIVALPROEX SODIUM 250 MG TAB...DR PO SCH ×3 (05:11→21:10)
[2018-02-16 06:09] LABS: BASOPHILS % 0.5 % (0.0-1.0); EOSINOPHILS # (AUTO) 0.3 (0.0-0.4); EOSINOPHILS % 3.4 % (0.0-6.0); HEMATOCRIT 45.9 % (38.2-49.6); HEMOGLOBIN 14.3 g/dL (14.0-18.0); LYMPHOCYTES # (AUTO) 1.2 (1.0-3.2); LYMPHOCYTES % 15.6 % (18.0-39.1); MEAN CORPUSCULAR HGB CONC 31.2 g/dL (31-35); MEAN CORPUSCULAR VOLUME 76.9 fL (81-99); MONOCYTES # (AUTO) 0.9 (0.2-0.8); MONOCYTES % 12.2 % (4.4-11.3); NEUTROPHILS # (AUTO) 5.2 (2.1-6.9); NEUTROPHILS % 67.9 % (38.7-80.0); PLATELET COUNT 204 x10e3/uL (140-360); RED BLOOD COUNT 5.97 x10e6/uL (4.3-5.7); RED CELL DISTRIBUTION WIDTH 18.7 % (11.7-14.4)
[2018-02-16 06:27] LABS: ANION GAP 15.7 mmol/L (8-16); BLOOD UREA NITROGEN 10 mg/dL (7-26); BUN/CREATININE RATIO 9 (6-25); CALCIUM 9.3 mg/dL (8.4-10.2); CARBON DIOXIDE 21 mmol/L (22-29); CHLORIDE 100 mmol/L (98-107); CREATININE, SERUM 1.11 mg/dL (0.72-1.25); EST GLOMERULAR FILTRATION RATE > 60 ML/MIN (60-); GLUCOSE 89 mg/dL (74-118); POTASSIUM 3.7 mmol/L (3.5-5.1); SODIUM 133 mmol/L (136-145)
--- NOTE | 2018-02-16 07:25 | Consultation ---
DATE OF CONSULTATION: REASON FOR CONSULTATION: Fever, chills and cellulitis of the right leg. This patient who is a very pleasant 47-year-old male comes in with fever and chills. The patient is telling me that he has a monitor on his leg to monitor his diabetes, the right leg. Noted to have redness and swelling. He had it for the last week. He took some oral antibiotics, but the redness was getting progressively worse so he came to the hospital because he is not getting any better. He was also noted to have fever and chills. Patient is being admitted. PAST MEDICAL HISTORY: Hypertension and diabetes mellitus. PAST SURGICAL HISTORY: Denies. ALLERGIES: NKA. FAMILY HISTORY: There is no smoking, drug abuse or alcohol abuse. FAMILY HISTORY: Otherwise unremarkable. REVIEW OF SYSTEMS HEENT: Negative. PULMONARY: Negative. CARDIAC: Negative. : Negative. PHYSICAL EXAMINATION GENERAL: He is currently alert and oriented. Does not seem to be in acute distress. VITALS: Stable. Afebrile. HEENT: He is not icteric. NECK: Supple. CHEST: Clear. HEART: S1 and S2. No murmur. ABDOMEN: Soft. Bowel sounds present. EXTREMITIES: No edema. Currently, there is no redness or swelling in the leg. IMPRESSION 1. Cellulitis of the leg present on admission: Seems to be better. 2. Fevers and chills: Concern about bacteremia. Obtain blood cultures and urine cultures. Recheck CBC. Recheck Chem panel. Failure of outpatient treatment. Continue vancomycin and Zosyn. Will follow with you. Job#: [id number] LEE ANN
[2018-02-16 08:30] VITALS: BP 147/85
[2018-02-16] MEDS: SITAGLIPTIN 100 MG TAB PO SCH (08:32)
[2018-02-16] MEDS: PROMETHAZINE HCL 25 MG TAB PO SCH (08:32)
[2018-02-16] MEDS: PRAMIPEXOLE DIHYDROCHLORIDE 0.25 MG TAB PO SCH (08:32)
[2018-02-16] MEDS: CLOPIDOGREL BISULFATE 75 MG TAB PO SCH (08:32)
[2018-02-16] MEDS: METOPROLOL TARTRATE 50 MG TAB PO SCH ×2 (08:32→17:42)
[2018-02-16] MEDS: LISINOPRIL 2.5 MG TAB PO SCH (08:33)
[2018-02-16] MEDS: VANCOMYCIN 1GM/NS 250 ML 250 ML IV SCH ×2 (11:30→22:27)
[2018-02-16 12:47] VITALS: BP 131/89
[2018-02-16 16:32] VITALS: BP 123/84
[2018-02-16] MEDS: MONTELUKAST SODIUM 10 MG TAB PO SCH (17:42)
[2018-02-16 20:00] VITALS: BP 124/66
[2018-02-17] VITALS: BP 135/82
[2018-02-17 04:00] VITALS: BP 140/81
[2018-02-17] MEDS: DIVALPROEX SODIUM 250 MG TAB...DR PO SCH (05:52)
[2018-02-17] MEDS: PIPER-TAZ 3.375 GM 50 ML IV SCH (05:52)
[2018-02-17 07:28] VITALS: BP 129/80
[2018-02-17 07:53] VITALS: BP 129/80
[2018-02-17] MEDS: SITAGLIPTIN 100 MG TAB PO SCH (09:39)
[2018-02-17] MEDS: CLOPIDOGREL BISULFATE 75 MG TAB PO SCH (09:40)
[2018-02-17] MEDS: PRAMIPEXOLE DIHYDROCHLORIDE 0.25 MG TAB PO SCH (09:40)
[2018-02-17] MEDS: METOPROLOL TARTRATE 50 MG TAB PO SCH (09:40)
[2018-02-17] MEDS: PROMETHAZINE HCL 25 MG TAB PO SCH (09:40)
[2018-02-17] MEDS: LISINOPRIL 2.5 MG TAB PO SCH (09:40)
[2018-02-17] MEDS ORDERED: CEPHALEXIN500 MG PO (10:03)
[2018-02-17] MEDS: VANCOMYCIN 1GM/NS 250 ML 250 ML IV SCH (11:24)
--- NOTE | 2018-02-17 11:43 | Discharge Summary ---
DISCHARGE DIAGNOSES 1. Right lower extremity cellulitis, improving. 2. Type-2 diabetes mellitus on insulin pump, well controlled. 3. Coronary artery disease and atherosclerotic heart disease, currently stable. HISTORY OF PRESENT ILLNESS: Mr. Tom is a 47-year-old gentleman, a patient of Dr. Demian James, who has past medical history significant for type-2 diabetes mellitus, hypertension, coronary artery disease. He is status post [place]. According to the patient, he rotates the site of the sensing probe of his insulin pump machine, and he had set it in the distal portion of the right leg. A few days later, he developed pain, inflammation and redness, and he was treated with oral antibiotics. He developed fever to 103 and came into the emergency department for additional evaluation. Due to his diabetic condition, he was started on a combination of vancomycin and Zosyn. The patient's white cell count was 12,000 on admission, and this has now normalized. He has been afebrile for over 36 hours. A consultation was requested with ID, and they concurred with the current combination therapy. The patient's blood cultures are negative. He is being sent home in stable condition on a 5-day course of cephalexin 500 mg every 6 hours. Then he is to follow with his PCP, Dr. James. KASANDRA SUGGS MD Job#: [id number]
[2018-02-17 11:54] VITALS: BP 139/90
== END 2018-02-17 14:49 | disposition home or self-care (01) | DRG 603 ==
LOC: ER 09:29 → ERHOLD 12:04 → MED/SURG3 18:31
PROVIDERS: ADMIT Internal Medicine; ATTEND Internal Medicine
DX: L03.115 Cellulitis of right lower limb (principal); E87.1 Hypo-osmolality and hyponatremia; E87.2 Acidosis; I10 Essential (primary) hypertension; E11.9 Type 2 diabetes mellitus without complications; Z96.41 Presence of insulin pump (external) (internal); Z95.5 Presence of coronary angioplasty implant and graft; I25.10 Atherosclerotic heart disease of native coronary artery without angina pectoris; I25.2 Old myocardial infarction; E87.8 Other disorders of electrolyte and fluid balance, not elsewhere classified; E78.00 Pure hypercholesterolemia, unspecified; K21.9 Gastro-esophageal reflux disease without esophagitis; G43.909 Migraine, unspecified, not intractable, without status migrainosus; Z79.84 Long term (current) use of oral hypoglycemic drugs; Z79.02 Long term (current) use of antithrombotics/antiplatelets
CPT/HCPCS: 36415; 76705; 80048; 80053; 80202; 82948; 83605; 85025; 87040; 93971; 99284; J1885; J2405; J2543; J3370; J7030; J7050

== ENCOUNTER 2018-03-05 14:40 | Inpatient (IN) | payer BC ==
[~2018-03-05] VITALS: Ht 162.6 cm; Wt 81.2 kg
[~2018-03-05 14:40] MED LIST changes: +BACTRIM DS TAB1 EACH PO; +CEPHALEXIN500 MG PO; +CLINDAMYCIN HC150 MG; +ISOSORBIDE MONO30 MG PO
--- OUTSIDE RECORDS SUMMARY | 2018-03-05 14:44 | XMS REPORT | Continuity of Care Document ---
Author Author [facility] Interface Address Unknown Phone Unavailable Problems Problem Status Onset Date Classification Date Reported Comments Source Chest pain Active 10/20/2015 Problem 02/17/2018 [facility] Pure hypercholesterolemia Active Problem 11/16/2017 Mohteresa Combs CAD in three affiliated artery Active Diagnosis 11/16/2017 Lucinda Combs Angina of effort Active Problem 11/16/2017 Mohamed Scotty Combs Palpitations Active Problem 11/16/2017 Mohamed Scotty Combs Diabetes mellitus with complication Active Problem 11/16/2017 Mohamed Scotty Combs Benign hypertensive heart disease Active Problem 11/16/2017 Mohamed Scotty Mackdi S/P PTCA Active Problem 11/16/2017 Mohamed Scotty Combs Abnormal EKG Active Problem 11/16/2017 Mohamed Scotty Combs Hypercholesterolemia Active Problem 11/13/2014 Mohteresa Combs Diabetes mellitus with complication Active Problem 11/13/2014 Mohteresa Combs 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 11/13/2014 Mohteresa Combs Unstable Angina Active Problem 11/13/2014 Mohamed O Lauryn Angina Active Problem 11/13/2014 Mohamed Scotty Mackdi Abnormal ECG Active Problem 11/13/2014 Mohamed Scotty Combs Benign hypertensive heart disease Active Problem 11/13/2014 Mohteresa Combs CAD, [place] Coronary Artery Active Problem 11/13/2014 Mohamed Scotty Mackdi S/P PTCA Active Problem 11/13/2014 Mohamed Scotty Combs Chest Pain Active Problem 11/13/2014 Mohamed Scotty Combs Cellulitis of right lower extremity Active Problem 02/17/2018 [facility] Medications Medication Details Route Status Patient Instructions Ordering Provider Order Date Source Cephalexin 500 Mg Capsule Four Times Daily Active Conley 02/17/2018 [facility] Clindamycin Hcl 150 Mg Capsule, 300 Mg Every 8 Hours Active 02/17/2018 [facility] Sulfamethoxazole/Trimethoprim (Bactrim Ds Tablet) 1 Each Tablet, 1 Tab Oral Twice A Day Active 02/17/2018 [facility] Doxepin Hcl 25 Mg Capsule, 5 % Topical Twice A Day for Itching Of Foot Active 02/14/2018 [facility] Esomeprazole Magnesium (Nexium) 2.5 Mg Suspdr.pkt, 22.3 Mg Active 02/14/2018 [facility] Fluocinonide/Emollient (Fluocinonide-E 0.05% Cream) 15 Gm Cream..g., 0.1 % Twice A Day for Dermattis Of Feet Active 02/14/2018 [facility] Insuln Asp Prt/Insulin Aspart (Novolog Mix 70-30 Flexpen Syrn) 100 Unit/1 Ml Insuln.pen, Active 02/14/2018 [facility] Levocetirizine Dihydrochloride 5 Mg Tablet, 5 Mg Oral Daily Active 02/14/2018 [facility] Lidocaine Hcl/D7.5w/Pf (Lidocaine 5% In D7.5w Ampul) 2 Ml Ampul, 5 % Topical Twice A Day for Foot Discomfort Active 02/14/2018 [facility] Meclizine Hcl 12.5 Mg Tablet, 25 Mg Oral Daily as needed for Prn Active 02/14/2018 [facility] Sitagliptin Phosphate (Januvia) 100 Mg Tablet, 100 Mg Oral Daily Active 02/14/2018 [facility] Clonidine Hcl 0.1 Mg Tablet, 1 Tab Oral Twice A Day as needed for Elevated Blood Pressure Active 09/05/2016 [facility] Atorvastatin Calcium 10 Mg Tablet, 10 Mg Oral Today At 9:00PM Active 09/04/2016 [facility] Glimepiride 2 Mg Tablet, 4 Mg Oral Am Active 09/04/2016 [facility] Glimepiride 1 Mg Tablet, 1 Mg Oral Pm Active 09/04/2016 [facility] Jardeiance , 10 Mg Oral Daily Active 09/04/2016 [facility] Metformin Hcl (Metformin Hcl Er) 500 Mg Tab.er.24, 1000 Mg Oral Twice A Day Active 09/04/2016 [facility] Metformin Hcl (Metformin Hcl Er) 500 Mg Tab.er.24h, Active 09/04/2016 [facility] Ursodiol 300 Mg Capsule, 300 Mg Oral Daily Active 09/04/2016 [facility] Dexlansoprazole (Dexilant) 60 Mg Cap.mp, 60 Mg Oral Twice A Day Active Conley 10/24/2015 [facility] Flaxseed Oil (Flax Seed Oil) 1,000 Mg Capsule, 1000 Mg Oral Daily Active 10/24/2015 [facility] Byetta , Active 10/20/2015 [facility] Lisinopril 40 Mg Tablet, Active 10/20/2015 [facility] Metformin Hcl 1,000 Mg Tablet, Active 10/20/2015 [facility] Propranolol Hcl 60 Mg Cap.sa.24h, Active 10/20/2015 [facility] Sitagliptin Phosphate (Januvia) 100 Mg Tablet, Active 10/20/2015 [facility] Sumatriptan Succinate 100 Mg Tablet, Active 10/20/2015 [facility] Zolpidem Tartrate 12.5 Mg Tab.mphase, Active 10/20/2015 [facility] Plavix 1 tablet Orally Active 75 MG [...] mg Orally Once a day Lauryn Combs Atorvastatin Calcium 10 Mg Tablet Today At 9:00PM Active [facility] Clopidogrel Bisulfate (Plavix) 75 Mg Tablet Daily Active [facility] Divalproex Sodium 250 Mg Tablet.dr Daily Active TAKE 1 PILL DURING THE DAY AND TAKE 2 PILLS DURING THE EVENING TIME [facility] Isosorbide Mononitrate (Isosorbide Mononitrate Er) 30 Mg Tab.er.24h Daily Active [facility] Jardeiance Daily Active [facility] Lisinopril 2.5 Mg Tablet Daily Active [facility] Metoprolol Tartrate 50 Mg Tablet Twice A Day Active [facility] Mextaxalone Three Times A Day Active [facility] Montelukast Sodium 10 Mg Tablet Daily@1700 Active [facility] Nitroglycerin (Nitrostat) 0.4 Mg Tab.subl As Needed as needed for Pain Active [facility] Pramipexole Di-Hcl (Pramipexole Dihydrochloride) 0.25 Mg Tablet Daily Active [facility] Promethazine Hcl 25 Mg Tablet Daily for Nausea Active [facility] Sitagliptin Phos/Metformin Hcl (Janumet 50-1,000 Mg Tablet) 1 Each Tablet Twice A Day Active [facility] Tramadol Hcl (Ultram) 50 Mg Tablet Every 6 Hours as needed for Pain Active [facility] Allergies, Adverse Reactions, Alerts Substance Category Reaction Severity Reaction type Status Date Reported Comments Source meperidine HCl RASH Unknown Allergy to Substance Active 02/14/2018 [facility] Immunizations Immunization Date Given Site Status Last Updated Comments Source Results Order Name Results Value Reference Range Date Interpretation Comments Source Capillary blood glucose measurement by glucometer (mass/volume) 258 70 - 120 02/17/2018 [facility] Serum or plasma trough vancomycin level at trough (mass/volume) 13.9 5.0 - 10.0 02/17/2018 [facility] Blood leukocytes automated count (number/volume) 7.62 4.8 - 10.8 02/16/2018 [facility] Blood erythrocytes automated count (number/volume) 5.97 4.3 - 5.7 02/16/2018 [facility] Blood hemoglobin measurement (moles/volume) 14.3 14.0 - 18.0 02/16/2018 [facility] Automated blood hematocrit (volume fraction) 45.9 38.2 - 49.6 02/16/2018 [facility] Automated erythrocyte mean corpuscular volume 76.9 81 - 99 02/16/2018 [facility] Automated erythrocyte mean corpuscular hemoglobin (mass per erythrocyte) 24.0 28 - 32 02/16/2018 [facility] Automated erythrocyte mean corpuscular hemoglobin concentration measurement (mass/volume) 31.2 31 - 35 02/16/2018 [facility] RDW BldCo-Rto 18.7 11.7 - 14.4 02/16/2018 [facility] Automated blood platelet count (count/volume) 204 140 - 360 02/16/2018 [facility] Automated blood segmented neutrophil count as percentage of total leukocytes 67.9 38.7 - 80.0 02/16/2018 [facility] Automated blood lymphocyte count as percentage ot total leukocytes 15.6 18.0 - 39.1 02/16/2018 [facility] Automated blood monocyte count as percentage of total leukocytes 12.2 4.4 - 11.3 02/16/2018 [facility] Automated blood eosinophil count as percentage of total leukocytes 3.4 0.0 - 6.0 02/16/2018 [facility] Automated blood basophil count as percentage of total leukocytes 0.5 0.0 - 1.0 02/16/2018 [facility] IM GRANULOCYTES % 0.4 0.0 - 1.0 02/16/2018 [facility] Automated blood neutrophil count 5.2 2.1 - 6.9 02/16/2018 [facility] Blood lymphocytes count (number/volume) 1.2 1.0 - 3.2 02/16/2018 [facility] Blood monocytes automated count (number/volume) 0.9 0.2 - 0.8 02/16/2018 [facility] Automated blood eosinophil count 0.3 0.0 - 0.4 02/16/2018 [facility] Automated blood basophil count (count/volume) 0.0 0.0 - 0.1 02/16/2018 [facility] Absolute Immature Granulocyte (auto 0.03 0 - 0.1 02/16/2018 [facility] Serum or plasma sodium measurement (moles/volume) 133 136 - 145 02/16/2018 [facility] Serum or plasma potassium measurement (moles/volume) 3.7 3.5 - 5.1 02/16/2018 [facility] Serum or plasma chloride measurement (moles/volume) 100 98 - 107 02/16/2018 [facility] Serum or plasma carbon dioxide, total measurement (moles/volume) 21 22 - 29 02/16/2018 [facility] Serum or plasma anion gap 15.7 8 - 16 02/16/2018 [facility] Serum or plasma urea nitrogen measurement (mass/volume) 10 7 - 26 02/16/2018 [facility] Serum or plasma creatinine measurement (mass/volume) 1.11 0.72 - 1.25 02/16/2018 [facility] Serum or plasma urea nitrogen/creatinine mass ratio 9 6 - 25 02/16/2018 [facility] Estimated glomerular filtration rate (GFR) determination > 60 60 02/16/2018 [facility] Glucose measurement 89 74 - 118 02/16/2018 [facility] Serum or plasma calcium measurement (mass/volume) 9.3 8.4 - 10.2 02/16/2018 [facility] Lactic Acid Level 29.2 4.5 - 19.8 02/14/2018 [facility] Serum or plasma total bilirubin measurement (mass/volume) 1.1 0.2 - 1.2 02/14/2018 [facility] Aspartate Amino Transf (AST/SGOT) 185 5 - 34 02/14/2018 [facility] Serum or plasma alanine aminotransferase measurement (enzymatic activity/volume) 113 0 - 55 02/14/2018 [facility] Serum or plasma protein measurement (mass/volume) 8.9 6.5 - 8.1 02/14/2018 [facility] Serum or plasma albumin measurement (mass/volume) 3.8 3.5 - 5.0 02/14/2018 [facility] Plasma globulin measurement (mass/volume) 5.1 2.3 - 3.5 02/14/2018 [facility] Serum or plasma albumin/globulin mass ratio 0.7 0.8 - 2.0 02/14/2018 [facility] Serum or plasma alkaline phosphatase measurement (enzymatic activity/volume) 70 40 - 150 02/14/2018 [facility] Serum or plasma hepatitis A virus IgM antibody detection by immunoassay Negative Negative 02/14/2018 [facility] Serum or plasma hepatitis B virus surface antigen detection by immunoassay Negative Negative 02/14/2018 [facility] Serum or plasma hepatitis B virus core IgM antibody detection by immunoassay Negative Negative 02/14/2018 [facility] Blood culture NO GROWTH AFTER 72 HOURS 02/14/2018 [facility] Vital Signs Vital Sign Value Date Comments Source Encounters Location Location Details Encounter Type Encounter Number Reason For Visit Attending Provider ADM Date DC Date Status Source Lucinda Combs MD PA Unknown [id number] 10/09/2013 10/09/2013 Lucinda Combs MD PA Unknown [id number] 10/09/2013 10/09/2013 Lucinda Combs MD PA Unknown [id number] 10/09/2013 10/09/2013 MD FAISAL Hensley Unknown [id number] 10/29/2013 10/29/2013 MD FAISAL Hensley Unknown [id number] 10/29/2013 10/29/2013 MD FAISAL Hensley Unknown [id number] 07/22/2014 07/22/2014 MD FAISAL Hensley Unknown [id number] 08/19/2014 08/19/2014 MD FAISAL Hensley Unknown [id number] 08/26/2014 08/26/2014 MD FAISAL Hensley Unknown [id number] 11/12/2014 11/12/2014 Lucinda Combs Discharged Inpatient [id number] KASANDRA CONLEY MD 02/14/2018 02/17/2018 [facility] Procedures Procedure Code Date Perfomer Comments Source US Gallbladder [id number] 02/14/2018 DESIRE [facility]
--- OUTSIDE RECORDS SUMMARY | 2018-03-05 14:44 | XMS REPORT | Clinical Summary ---
Author Author Rajiv [facility] Organization [facility] Address Unknown Phone Unavailable Care Team Providers Care Brooch And Bracelet Maker Name Role Phone Asked, No Pcp PCP [...] Emergency General Internal Medicine - 05/21/2017 after 03/04/2017 Family History Medical History Relation Name Comments [...] 10/05/2017 12/04/2016, 01/19/2016, 01/24/2014, Additional history exists COLON CANCER SCREENING 02/28/2018 SHINGLES VACCINES (1 of 02/28/2018 2) Procedures Comments Procedure Name Priority Date/Time Associated [...] MMODE SPECTRAL 2:50 PM CDT COLOR DOPPLER ([id number]) POC GLUCOSE Routine 12/22/2017 1:22 PM CDT [...] 12-LEAD STAT 05/20/2017 9:46 AM CDT after 03/04/2017 Results * POC glucose (12/23/2017 1:15 PM CDT) Only the most recent of 11 results within the time period is included. POC glucose 217 (H) 65 - 99 mg/dL [facility] DEPART[facility] OF Comment: PATHOLOGY AND H Notified [facility] Meter ID: [id number] Web Site Specialist: mau spivey Performing Organization Address City/State/Zipcode Phone Number [facility] DEPARTMENT OF [address] [place] [address] PATHOLOGY AND GENOMIC MEDICINE * Cv ecg exercise stress (nuclear or echo) (12/23/2017 12:42 PM CDT) Resting HR 69 [facility] Resting BP 143 [facility] Peak MET Achieved 1.0 [facility] Protocol Name CELY [facility] Time in Exercise Phase 00:01:00 H MUSE Max Systolic BP 145 H MUSE Max Diastolic BP 87 [facility] Max Heart Rate 102 [facility] Max Predicted Heart Rate 171 [facility] Target HR Formula (220 - Age)*100% [facility] Test Indication chest pain [facility] Arrhy During Ex [facility] ECG Interp Before EX [facility] ECG Interp During Ex H MUSE Ex Summary Comment [facility] Overall HR Response to [facility] Exercise Overall BP Response To [facility] Exercise Reason for Termination [facility] Stress Test Impression -Waveform interpreted in [facility] report associated with image study. No interpretation is provided as part of this Stress ECG report.- Performing Organization Address City/State/Zipcode Phone Number [facility] [address] [place] [address] * Myocardial perfusion (12/23/2017 12:42 PM CDT) Only the most recent of 2 results within the time period is included. Narrative Performed At [facility] Nuclear Cardiology and Cardiac CT [address] [place] [address] Myocardial Perfusion Imaging Report Stress ECG tracings are available in MUSE, [employer] and CV Web All ECG interpretations are included in this report Pat.Name:TOM, HANG CARRINGTON Pat.ID:[id number] .Date: 12/23/2017Refer.MD:CORINE GIBSON MD Exam Time: 11:50:00 AM Study Type:Myocardial Perfusion Imaging Height:63inWeight:173lb BSA: 1.82 m2 DOBAge:1970,47Y Sex: MALEBP:143/92 HR:71 bpmHCT: 47 % Nuclear Tech:BETY Noland, ARRT, Gena Santa ARRT, NMTCB Pat. Stat.:Inpatient Room:[address] Event ID:[id number] Order ID:[id number] Reason for Study:Eval for Ischemia, Chest pain History / Clinical:Diabetes, Hyperlipidemia, Hypertension Procedures:Low Dose Stress Only Race:C Risk Factors:Known Coronary Atherosclerosis, Diabetes, Hyperlipidemia, Hypertension, Prior [facility] Clinical Symptoms:Regadenoson Physical Exam:S1, S2 Surgery: Serum [...] PM CDT Nuclear Cardiology and Cardiac CT [address] [place] [address] Myocardial Perfusion Imaging Report Stress ECG tracings are available in [employer], [employer] and [employer] All ECG interpretations are included in this report Pat.Name: HANG TOM Pat.ID: [id number] St.Date: 12/23/2017 Refer.MD: CORINE GIBSON MD Exam Time: 11:50:00 AM Study Type:Myocardial Perfusion Imaging Height: 63in Weight: 173lb BSA: 1.82 m2 Age: 10 1970,47Y Sex: MALE BP: 143/92 HR: 71 bpm HCT: 47 % Nuclear Tech:Anselmo Maloney, MANAGER HARB[employer], ARRT, Gena Santa, ARRT, NMTCB Pat. Stat.:Inpatient Room: [facility] Nuclear Event ID:[id number] Order ID: [id number] Reason for Study:Eval for Ischemia, Chest pain History / Clinical:Diabetes, Hyperlipidemia, Hypertension Procedures:Low Dose Stress Only Race: C Risk Factors:Known Coronary Atherosclerosis, Diabetes, Hyperlipidemia, Hypertension, Prior [facility] Clinical Symptoms:Regadenoson Physical Exam:S1, S2 Surgery: Serum [...] PM Baldemar Law MD Performing Organization Address City/State/Zipcode Phone Number [facility] [address] [place] [address] * Estimated GFR (12/23/2017 4:23 AM CDT) Only the most recent of 2 results within the time period is included. Estimated GFR 79 mL/min/1.73 m2 [facility] DE[facility] OF Comment: PATHOLOGY AND Cater[employer]oryUnitsInte GENOMIC MEDICINE rpretation G1 >=90 Normal or high G2 60-89Mildly decreased D2u39-66 Mildly to moderately decreased L5m16-94 Moderately to severely decreased G4 15-29Severely decreased G5 <15Kidney failure The eGFR was calculated using the Chronic Kidney Disease Epidemiology Collaboration (CKD-EPI) equation. Interpretation is based on recommendations of the National Kidney Foundation-Kidney Disease Outcomes Quality Initiative (NKF-KDOQI) published in 2014. Specimen Plasma specimen Performing Organization Address City/[facility] [place] [address] PATHOLOGY AND [place]ICINE * Troponin (12/23/2017 4:23 AM CDT) Only the most recent of 5 results within the time period is included. Troponin <0.30 0.00 - 0.30 ng/mL [facility] DEPART[facility] OF Comment: PATHOLOGY AND 0.30 - 1.49 GENOMIC MEDICINE ng/mlMay indicate increased risk of acute coronary syndrome. >=1.5 ng/ml Consistent with acute myocardial infarction. The diagnostic value of a single normal or non-diagnostic result is questionable.Serial samples at 2-6 hour intervals are required to rule out acute myocardial injury. Specimen Plasma specimen Performing Organization Address [facility] [place] [address] PATHOLOGY AND [place] MEDICINE * Lactic acid level (12/23/2017 4:23 AM CDT) Lactic acid 2.8 (H) 0.5 - 2.2 mmol/L [facility] DEPARTMENT OF PATHOLOGY AND [place] MEDICINE Specimen Plasma specimen Performing Organization Address City/[facility] [place] [address] PATHOLOGY AND [place] MEDICINE * Hemoglobin A1c (12/23/2017 4:23 AM CDT) Hemoglobin A1C 8.0 (H) 4.0 - 5.6 % [facility] DEPARTMENT OF Comment: PATHOLOGY AND HbA1c cutoffs for diagnosing GENOMIC MEDICINE diabetes: 4.0% - 5.6%=normal 5.7% - 6.4%=increased risk for diabetes (prediabetes) >=6.5%=diabetes Goals for glycemic control (ADA 2016) < 7.0%Target for non adults with diabetes. More or less stringent targets may be appropriate for individual patients. <7.5% Target for Children and adolescents with type 1 diabetes. Specimen Blood Performing Organization Address [facility] [place] [address] PATHOLOGY AND GENOMIC MEDICINE * Valproic acid level (12/23/2017 4:23 AM CDT) Valproic acid 56.3 50.0 - 100.0 ug/mL [facility] DEPARTMENT OF Comment: PATHOLOGY AND Therapeutic Range: GENOMIC MEDICINE 50 - 100 ug/mL Specimen Plasma specimen Performing Organization Address [facility] [place] [address] PATHOLOGY AND GENOMIC MEDICINE * Basic metabolic panel (12/23/2017 4:23 AM CDT) Only the most recent of 3 results within the time period is included. Sodium 139 135 - 148 mEq/L [facility] DEPARTMENT OF PATHOLOGY AND GENOMIC MEDICINE Potassium 4.2 3.5 - 5.0 mEq/L [facility] DEPARTMENT OF PATHOLOGY AND GENOMIC MEDICINE Chloride 101 98 - 112 mEq/L [facility] DEPARTMENT OF PATHOLOGY AND GENOMIC MEDICINE CO2 26 24 - 31 mEq/L [facility] DEPARTMENT OF PATHOLOGY AND GENOMIC MEDICINE Anion gap 12@ANIO 7 - 15 mEq/L [facility] DEPARTMENT OF PATHOLOGY AND GENOMIC MEDICINE BUN 11 6 - 20 mg/dL [facility] DEPARTMENT OF PATHOLOGY AND GENOMIC MEDICINE Creatinine 1.09 0.70 - 1.20 mg/dL [facility] DEPARTMENT OF PATHOLOGY AND GENOMIC MEDICINE Glucose 95 65 - 99 mg/dL [facility] DEPARTMENT OF PATHOLOGY AND GENOMIC MEDICINE Calcium 9.2 8.3 - 10.2 mg/dL [facility] DEPARTMENT OF PATHOLOGY AND GENOMIC MEDICINE Specimen Plasma specimen Performing Organization Address [facility] [place] [address] PATHOLOGY AND GENOMIC MEDICINE * CT Chest Wo Contrast (12/22/2017 6:25 PM CDT) Narrative Performed At EXAMINATION: RADIANT CT CHEST WO CONTRAST CLINICAL HISTORY:Tachypnea [...] SUMMARY: No acute or suspicious finding identified. [facility]-[id number] Procedure Note [facility], Radiology Results Incoming - 12/22/2017 7:14 PM [...] SUMMARY: No acute or suspicious finding identified. [facility]-[id number] Performing Organization Address City/[facility]/Zipcode Phone Number [facility] [address] [place] [address] * Lactic acid level, SEPSIS - Now and repeat 2x every 3 hours (12/22/2017 2:59 PM CDT) Only the most recent of 2 results within the time period is included. Lactic acid 4.9 (HH) 0.5 - 2.2 mmol/L [facility] DEPARTMENT OF PATHOLOGY AND GENOMIC MEDICINE Specimen Blood Performing Organization Address City/[facility]/Zipcode Phone Number [facility] DEPARTMENT OF [address] [place] [address] PATHOLOGY AND GENOMIC MEDICINE * Echocardiogram complete w contrast and 3D if needed (12/22/2017 2:50 PM CDT) Narrative Performed At [facility] Echocardiography Report [address], [address], [place] [address] Pat.Name:HANG TOM.ID:[id number] .Date: 12/22/2017Refer.MD:ILDA GIBSON MD Exam Time: 2:27:00 PMStudy Type:Routine Echo Height:63inWeight:175lb BSA: 1.83 m2 DOBAge:1970,47Y Sex: MALEBP:101/51 HR:86 bpm Sonogrphr: Chapis Shine RDCS, RVT/ Lilliana Mendez (student) Maria C. Stat.:Inpatient Room:[facility] Study Status:Final Echo Event ID:[id number] Order ID:[id number] Reason for Study:Hypertension - Initial eval of [...] PA systolic pressure. MEASUREMENTS: 2D Parasternal Long [place] LVOT 2 cmLA Ds3.5 cm LVIDd4.3 cmIndex2.3 cm/m Ao An2 cm LVIDs2.6 cmAo Rtd 3 cm Index1.7 cm/m LV%fs 39 % LV Sfin690.9 g(122-174) IVSd 1.2 cmLVM Index 97.7 g/m2 LVPWd1.2 cmRWT0.6 LA Sng Plane LA Area 14.5 cm2(8.8-23.4) LA Vol30.5 ml Index16.7 ml/m LA LngAx 5.8 cm DOPPLER LVOT Stroke Vol LVOT 2 cmLVOT CO5.2 l/min LVOT TVI19.6 cmLVOT CI2.8 l/m/m2 LVOT Tm297 edpmBN44 bpm LVOT SV 61.4 ml Signed 12/22/2017 04:15 PM Anjel Portillo M.D. Procedure Note Interface, Radiology Results In - 12/22/2017 4:15 PM CDT Echocardiography Report [address] [place] [address] Pat.Name: HANG TOM.ID: [id number] .Date: 12/22/2017 Refer.MD: ILDA GIBSON MD Exam Time: 2:27:00 PM Study Type:Routine Echo Height: 63in Weight: 175lb BSA: 1.83 m2 Age: 10 1970,47Y Sex: MALE BP: 101/51 HR: 86 bpm Sonogrphr: Chapis Shine, RDCS, RVT/ Lilliana Mendez (student) Pat. Stat.:Inpatient Room: [facility] Study Status:Final Echo Event ID:[id number] Order ID: [id number] Reason for Study:Hypertension - Initial eval of [...] PA systolic pressure. MEASUREMENTS: 2D Parasternal Long [place] LVOT 2 cm LA Ds 3.5 cm [...] Organization Address City/State/Zipcode Phone Number [facility] [address] [place] [address] * ECG ED Preliminary Interpretation - NOT AN ORDER (12/22/2017 10:31 AM CDT) Narrative Performed At Attila Rosales DO 12/22/20171:52 PM ECG ED Preliminary Interpretation - Not an Order Performed by: ATTILA ROSALES Authorized by: ATTILA ROSALES ECG reviewed by ED Physician in the absence of a farm specialist: yes Previous ECG: Previous ECG:Compared to current [...] Regional osseous structures remain normal in appearance. [id number] Procedure Note Interface, Radiology Results Incoming - 12/22/2017 9:41 AM CDT EXAMINATION: XR CHEST 1 VW PORTABLE CLINICAL HISTORY: Chest pain concern for ACs COMPARISON: 05/20/2017. IMPRESSION: 1. LINES/TUBES: None. 2. LUNGS: Clear. 3. HEART: Heart size is normal.. 4. PLEURA: No evidence for pleural effusion or pneumothorax.. 5. OTHER: Regional osseous structures remain normal in appearance. [id number] Performing Organization Address City/[facility]/[place] [address] * Partial thromboplastin time, activated (12/22/2017 9:18 AM CDT) PTT 31.1 23.0 - 36.0 sec [facility] DEPARTMENT OF Comment: PATHOLOGY AND PTT therapeutic range for [facility] MEDICINE unfractionated heparin is 61.0-112.0 seconds which corresponds to Anti-Xa 0.3-0.7 U/ml. Specimen Blood Performing Organization Address [facility] Phone Number [facility] DE[facility] [address] [address] PATHOLOGY AND GENOMIC MEDICINE * Prothrombin time with INR (12/22/2017 9:18 AM CDT) Prothrombin time 12.8 12.0 - 15.0 sec [facility] DEPARTMENT OF PATHOLOGY AND GENOMIC MEDICINE INR 1.0 [facility] DEPARTMENT OF Comment: PATHOLOGY AND The International Normalized GENOMIC MEDICINE Ratio (INR) is a therapeutic monitoring tool for patients who are stable on oral anticoagulant therapy. An INR of 2.0-3.0 is suggested for deep vein thrombosis/pulmonary embolism. Specimen Blood Performing Organization Address [facility] Phone Number [facility] [address] [address] PATHOLOGY AND [place] MEDICINE * CBC with platelet and differential (12/22/2017 9:18 AM CDT) Only the most recent of 3 results within the time period is included. WBC 9.19 4.50 - 11.00 k/uL [facility] DEPARTMENT OF PATHOLOGY AND GENOMIC MEDICINE RBC 6.07 (H) 4.40 - 6.00 m/uL [facility] DEPARTMENT OF PATHOLOGY AND GENOMIC MEDICINE HGB 14.4 14.0 - 18.0 g/dL [facility] DEPARTMENT OF PATHOLOGY AND GENOMIC MEDICINE HCT 47.0 41.0 - 51.0 % [facility] DEPARTMENT OF PATHOLOGY AND GENOMIC MEDICINE MCV 77.4 (L) 82.0 - 100.0 fL [facility] DEPARTMENT OF PATHOLOGY AND GENOMIC MEDICINE MCH 23.7 (L) 27.0 - 34.0 pg [facility] DEPARTMENT OF PATHOLOGY AND GENOMIC MEDICINE MCHC 30.6 (L) 31.0 - 37.0 g/dL [facility] DEPARTMENT OF PATHOLOGY AND GENOMIC MEDICINE RDW - SD 48.0 37.0 - 55.0 fL [facility] DEPARTMENT OF PATHOLOGY AND GENOMIC MEDICINE MPV 10.2 8.8 - 13.2 fL [facility] DEPARTMENT OF PATHOLOGY AND GENOMIC MEDICINE Platelet count 267 150 - 400 k/uL [facility] DEPARTMENT OF PATHOLOGY AND GENOMIC MEDICINE Nucleated RBC 0.00 /100 WBC [facility] DEPARTMENT OF PATHOLOGY AND GENOMIC MEDICINE Neutrophils 66.9 39.0 - 69.0 % [facility] DEPARTMENT OF PATHOLOGY AND GENOMIC MEDICINE Lymphocytes 21.5 (L) 25.0 - 45.0 % [facility] DEPARTMENT OF PATHOLOGY AND GENOMIC MEDICINE Monocytes 9.5 0.0 - 10.0 % [facility] DEPARTMENT OF PATHOLOGY AND GENOMIC MEDICINE Eosinophils 1.2 0.0 - 5.0 % [facility] DEPARTMENT OF PATHOLOGY AND GENOMIC MEDICINE Basophils 0.5 0.0 - 1.0 % [facility] DEPARTMENT OF PATHOLOGY AND GENOMIC MEDICINE Immature granulocytes 0.4Comment: "Immature 0.0 - 1.0 % [facility] DEPARTMENT OF granulocytes" (promyelocytes, PATHOLOGY AND myelocytes, metamyelocytes) GENOMIC MEDICINE Specimen Blood Performing Organization Address City/[facility]/[place] [address] PATHOLOGY [facility] GENOMIC [facility] * Phosphorus level (12/22/2017 9:18 AM CDT) Phosphorus 2.7 2.4 - 4.5 mg/dL [facility] DEPARTMENT OF PATHOLOGY AND GENOMIC MEDICINE Specimen Plasma specimen Performing Organization Address City/[facility] [place] [address] PATHOLOGY [facility] * B natriuretic peptide (12/22/2017 9:18 AM CDT) Only the most recent of 2 results within the time period is included. BNP 3 0 - 100 pg/mL [facility] DEPARTMENT OF PATHOLOGY AND GENOMIC MEDICINE Specimen Blood Performing Organization Address [facility] [place] [address] PATHOLOGY AND GENOMIC MEDICINE * Magnesium level (12/22/2017 9:18 AM CDT) Magnesium 1.9 1.6 - 2.6 mg/dL [facility] DEPARTMENT OF PATHOLOGY AND GENOMIC MEDICINE Specimen Plasma specimen Performing Organization Address [facility] Phone Number [facility] [place] [address] PATHOLOGY AND GENOMIC MEDICINE * Creatine kinase, total (CPK) (12/22/2017 9:18 AM CDT) Creatine kinase 135 39 - 308 U/L [facility] DEPARTMENT OF PATHOLOGY AND GENOMIC MEDICINE Specimen Plasma specimen Performing Organization Address [facility] Phone Number [facility] [place] [address] PATHOLOGY AND GENOMIC MEDICINE * Hepatic function panel (12/22/2017 9:18 AM CDT) Albumin 3.6 3.5 - 5.0 g/dL [facility] DEPARTMENT OF PATHOLOGY AND GENOMIC MEDICINE Total bilirubin 0.4 0.0 - 1.2 mg/dL [facility] DEPARTMENT OF PATHOLOGY AND GENOMIC MEDICINE Bilirubin direct <0.2 0.0 - 0.3 mg/dL [facility] DEPARTMENT OF PATHOLOGY AND GENOMIC MEDICINE Alkaline phosphatase 55 40 - 129 U/L [facility] DEPARTMENT OF PATHOLOGY AND GENOMIC MEDICINE Protein 8.1 6.3 - 8.3 g/dL [facility] DEPARTMENT OF Comment: PATHOLOGY AND [place] GENOMIC MEDICINE 4.6-7.0 g/dL 1 week 4.4-7.6 g/dL 7 months-1year 5.1-7.3 g/dL 1-2 years5.6-7 .5 g/dL >3 years6.0-8 .0 g/dL 18-150 6.3-8.3 g/dL ALT 20 5 - 50 U/L [facility] DEPARTMENT OF PATHOLOGY AND GENOMIC MEDICINE AST 23 10 - 50 U/L [facility] DEPARTMENT OF PATHOLOGY AND GENOMIC MEDICINE Specimen Plasma specimen Performing Organization Address [facility] Phone Number [facility] [place] [address] PATHOLOGY AND GENOMIC MEDICINE * ECG 12 lead (12/22/2017 8:55 AM CDT) Only the most recent of 2 results within the time period is included. Ventricular rate 91 [facility] Atrial rate 91 [facility] [place] interval 146 [facility] QRSD interval 120 [facility] QT interval 328 [facility] QTC interval 403 [facility] P axis 1 17 [facility] QRS axis 1 -57 [facility] T wave axis 90 [facility] EKG impression Normal sinus rhythm-Left [facility] anterior fascicular block-Left ventricular hypertrophy with QRS widening and repolarization abnormality-Abnormal ECG-No previous ECGs available- Performing Organization Address [facility] Phone Number [facility] [address] [place] [address] * Cv ecg exercise stress (nuclear or echo) (05/21/2017 12:20 PM CDT) Resting HR 69 [facility] Resting BP 127 [facility] Peak MET Achieved 1.0 H MUSE Protocol Name REGADENO [facility] Time in Exercise Phase 00:01:00 [facility] Max Systolic BP 147 [facility] Max Diastolic BP 83 [facility] Max Heart Rate 101 [facility] Max Predicted Heart Rate 171 [facility] Target HR Formula (220 - Age)*100% H MUSE Test Indication chest pain [facility] Stress Test Impression -Waveform interpreted in [facility] report associated with image study. No interpretation is provided as part of this Stress ECG report.-Electronically Signed By Wilman Mendez MD ([id number]), features editor Fiorella Conrad ([id number]) on 05/21/2017 11:49:39 AM Target HR 145.35 bpm [facility] Performing Organization Address [facility] Phone Number [facility] [address] [place] [address] * Estimated GFR (05/21/2017 4:00 AM CDT) Only the most recent of 2 results within the time period is included. GFR Non Af Amer 64 mL/min/1.73 m2 [facility] DEPARTMENT OF PATHOLOGY AND GENOMIC MEDICINE GFR Af Amer 78 mL/min/1.73 m2 [facility] DEPARTMENT OF Comment: PATHOLOGY AND Chronic [...] Americans. Specimen Plasma specimen Performing Organization Address [facility] Phone Number [facility] DEPARTMENT OF [address] [place] [address] PATHOLOGY AND GENOMIC MEDICINE * Lipid panel (05/21/2017 4:00 AM CDT) Cholesterol 106 <200 mg/dL [facility] DEPARTMENT OF PATHOLOGY AND GENOMIC MEDICINE Triglycerides 148 <150 mg/dL [facility] DEPARTMENT OF PATHOLOGY AND GENOMIC MEDICINE HDL cholesterol 32 (L) >40 mg/dL [facility] DEPARTMENT OF PATHOLOGY AND GENOMIC MEDICINE LDL cholesterol 63Comment: Result obtained by <100 mg/dL [facility] DEPARTMENT OF direct LDL measurement PATHOLOGY AND GENOMIC MEDICINE Lipid panel SeeBelow [facility] DEPARTMENT OF interpretation Comment: PATHOLOGY AND [...] mg/dL) Specimen Plasma specimen Performing Organization Address City/[facility] Phone Number [facility] DEPARTMENT OF [address] [place] [address] PATHOLOGY AND [place] MEDICINE * Comprehensive metabolic panel (05/20/2017 10:05 AM CDT) Sodium 144 135 - 148 mEq/L [facility] DEPARTMENT OF PATHOLOGY AND GENOMIC MEDICINE Potassium 4.7 3.5 - 5.0 mEq/L [facility] DEPARTMENT OF PATHOLOGY AND GENOMIC MEDICINE Chloride 101 98 - 112 mEq/L [facility] DEPARTMENT OF PATHOLOGY AND GENOMIC MEDICINE CO2 29 24 - 31 mEq/L [facility] DEPARTMENT OF PATHOLOGY AND GENOMIC MEDICINE Anion gap 14 7 - 15 mEq/L [facility] DEPARTMENT OF Comment: PATHOLOGY AND Starting from June GENOMIC MEDICINE , anion gap calculation no longer incorporates potassium. Please note the change. BUN 8 6 - 20 mg/dL [facility] DEPARTMENT OF PATHOLOGY AND GENOMIC MEDICINE Creatinine 1.1 0.7 - 1.2 mg/dL [facility] DEPARTMENT OF PATHOLOGY AND GENOMIC MEDICINE Glucose 113 (H) 65 - 99 mg/dL [facility] DEPARTMENT OF PATHOLOGY AND GENOMIC MEDICINE Calcium 10.1 8.3 - 10.2 mg/dL [facility] DEPARTMENT OF PATHOLOGY AND GENOMIC MEDICINE Protein 7.8 6.3 - 8.3 g/dL [facility] DEPARTMENT OF Comment: PATHOLOGY AND [place] GENOMIC MEDICINE 4.6-7.0 g/dL 1 week 4.4-7.6 g/dL 7 months-1year 5.1-7.3 g/dL 1-2 years5.6-7 .5 g/dL >3 years6.0-8 .0 g/dL 18-150 6.3-8.3 g/dL Albumin 3.6 3.5 - 5.0 g/dL [facility] DEPARTMENT OF PATHOLOGY AND GENOMIC MEDICINE A/G ratio 0.9 0.7 - 3.8 [facility] DEPARTMENT OF PATHOLOGY AND GENOMIC MEDICINE Alkaline phosphatase 47 40 - 129 U/L [facility] DEPARTMENT OF PATHOLOGY AND GENOMIC MEDICINE AST 24 10 - 50 U/L [facility] DEPARTMENT OF PATHOLOGY AND GENOMIC MEDICINE ALT 20 5 - 50 U/L [facility] DEPARTMENT OF PATHOLOGY AND GENOMIC MEDICINE Total bilirubin 0.4 0.0 - 1.2 mg/dL [facility] DEPARTMENT OF PATHOLOGY AND GENOMIC MEDICINE Specimen Plasma specimen Performing Organization Address City/State/Zipcode Phone Number [facility] DEPARTMENT OF [address] [place] [address] PATHOLOGY AND GENOMIC MEDICINE after 03/04/2017 Insurance Payer Benefit Subscriber ID Type Phone Address Plan / Group BCBS BCBS xxxxxxxxxxxx PPO CHOICE PPO/[id number] PPO Advance Directives Patient has advance care planning documents on file. For more information, malathi e contact: Rajiv Wallace [address] [place] [id number]
[2018-03-05 16:08] LABS: BASOPHILS % 0.2 % (0.0-1.0); EOSINOPHILS % 0.2 % (0.0-6.0); HEMATOCRIT 46.6 % (38.2-49.6); HEMOGLOBIN 14.6 g/dL (14.0-18.0); LYMPHOCYTES # (AUTO) 0.3 (1.0-3.2); LYMPHOCYTES % 3.2 % (18.0-39.1); MEAN CORPUSCULAR HEMOGLOBIN 24.6 pg (28-32); MEAN CORPUSCULAR HGB CONC 31.3 g/dL (31-35); MEAN CORPUSCULAR VOLUME 78.5 fL (81-99); MONOCYTES # (AUTO) 0.3 (0.2-0.8); NEUTROPHILS # (AUTO) 9.6 (2.1-6.9); NEUTROPHILS % 92.5 % (38.7-80.0); PLATELET COUNT 218 x10e3/uL (140-360); RED BLOOD COUNT 5.94 x10e6/uL (4.3-5.7); RED CELL DISTRIBUTION WIDTH 19.9 % (11.7-14.4)
[2018-03-05 16:26] LABS: ALBUMIN 3.6 g/dL (3.5-5.0); ALBUMIN/GLOBULIN RATIO 0.8 (0.8-2.0); ANION GAP 22.4 mmol/L (8-16); CALCIUM 10.2 mg/dL (8.4-10.2); CREATININE, SERUM 1.71 mg/dL (0.72-1.25); POTASSIUM 4.4 mmol/L (3.5-5.1)
--- NOTE | 2018-03-05 16:46 | Diagnostic Imaging Report ---
EXAMINATION: Chest x-ray 09/04/2016 INDICATION: Infection one week ago, fever, vomiting COMPARISON: None FINDINGS: PA and lateral views TUBES and LINES: None. LUNGS: Lungs are well inflated. There is no evidence of pneumonia or pulmonary edema. PLEURA: No pleural effusion or pneumothorax. HEART AND MEDIASTINUM: The cardiomediastinal silhouette is unremarkable.. BONES AND SOFT TISSUES: No focal osseous lesions. Soft tissues are unremarkable. UPPER ABDOMEN: No free air under the diaphragm. Cholecystectomy clips are present. IMPRESSION: No acute thoracic abnormality. Signed by: Dr. Dilip Arciniega MD on 03/05/2018 4:43 PM
[2018-03-05 17:02] LABS: CLARITY,URINE CLEAR (CLEAR); COLOR,URINE YELLOW (YELLOW); KETONES,URINE TRACE (NEGATIVE); LEUKOCYTE ESTERASE ,URINE NEGATIVE (NEGATIVE); NITRITE,URINE NEGATIVE (NEGATIVE); PROTEIN,URINE DIPSTICK NEGATIVE (NEGATIVE)
[2018-03-05] MEDS ORDERED: SODIUM CHLORIDE 0.9% 1000ML 2,400 ML IV NR (17:02)
[2018-03-05 17:03] LABS: BILIRUBIN,URINE 1+ (NEGATIVE); URINE UROBILINOGEN 0.2 mg/dL (0.2 - 1)
[2018-03-05] MEDS ORDERED: VANCOMYCIN 1GM/NS 250 ML 250 ML IV ONE (17:15)
[2018-03-05] MEDS ORDERED: DIATRIZOATE MEGL/DIATRIZOA SOD 30 ML BTL PO ONE (17:17)
[2018-03-05 17:24] LABS: BACTERIA,URINE RARE /HPF; EPITHELIAL CELLS,URINE RARE /LPF; RBC,URINE 0-5 /HPF (0-5); WBC,URINE (MAN) 0-5 /HPF (0-5)
[2018-03-05] MEDS ORDERED: PIPER-TAZ 3.375 GM 50 ML IV SCH (18:00)
--- NOTE | 2018-03-05 18:07 | Diagnostic Imaging Report ---
Tibia fibula right CPT code: 59354 Indication: Right ankle cellulitis, fever Technique: AP and lateral views of the right tibia and fibula obtained. Comparison: Lower extremity x-rays 02/14/2018 Findings: No fracture, dislocation, or focal osseous lesion. No periosteal new bone formation. A flabella is in the popliteal fossa. No degenerative changes of the knee. Spherical calcification in the interosseous membrane measures 3 mm and is stable. No air or radiopaque foreign bodies in the soft tissues. IMPRESSION: No osseous abnormalities. No new findings to suggest osteomyelitis. Signed by: Dr. Dilip Arciniega MD on 03/05/2018 6:04 PM
[2018-03-05] MEDS ORDERED: SODIUM CHLORIDE 0.9% 50ML 50 ML ONE (18:33)
[2018-03-05 18:34] LABS: MAGNESIUM 2.2 MG/DL (1.3-2.1)
[2018-03-05] MEDS ORDERED: IOPAMIDOL 370 MG/ML 200 ML INFUS..BTL INJ ONE (18:34)
[2018-03-05] MEDS: SODIUM CHLORIDE 0.9% 1000ML 1,000 ML IV SCH ×2 (18:45→23:34)
--- NOTE | 2018-03-05 18:53 | Diagnostic Imaging Report ---
CT Abdomen And Pelvis with Intravenous Contrast INDICATION: Fever for 2 days, history of cellulitis TECHNIQUE: Thin collimation axial images obtained from the diaphragm to the level of the pubic symphysis following the uneventful administration of oral and 100 cc of low osmolar, nonionic intravenous contrast. Dose reduction techniques used: Automated exposure control, adjustment of the mAs and/or kVp according to patient size, standardized low-dose protocol, and/or iterative reconstruction technique. RADIATION DOSE: Total DLP: 505.68 mGy*cm Estimated effective dose: (DLP x 0.015 x size factor) mSv CTDIvol has been reviewed. It is below the limits set by the Radiation Protocol Committee (RPC). COMPARISON: Right upper quadrant ultrasound 02/14/2018. ABDOMEN FINDINGS: Lung Bases: Minimal bibasilar atelectasis. Liver: Decreased attenuation consistent with steatosis. Right lobe measures 20 cm in length. No evidence for mass. Gallbladder: Absent. No biliary ductal dilatation. Pancreas: Normal attenuation without mass or ductal dilatation. Spleen: Normal in size. No evidence of mass.. Adrenal Glands: No evidence for mass. Kidneys: Right: Normal enhancement. Cyst in the lateral interpolar cortex measures 21 mm. No hydronephrosis. A single artery supplies the kidney. There is an accessory renal vein. Left: Normal enhancement. Subcentimeter low attenuating lesion the upper pole is suggestive of a cyst. Punctate calculus in the upper pole. No hydronephrosis. A single artery supplies the kidney with early branching. Lymph Nodes: No enlarged abdominal or retroperitoneal lymph nodes. Aorta: Normal in diameter PELVIS FINDINGS: Bowel: Stomach: Normal. Small Bowel: Normal in caliber with normal wall thickness. Enteric contrast present throughout. Large Bowel: Normal in caliber with normal wall thickness. Scattered diverticula. No associated inflammation. Appendix: Normal appendix. Bladder: Normal. Ureters: Nondilated. No ureteral dilatation. Prostate: Measures 3.7 x 4.6 cm in the axial plane Peritoneum/retroperitoneum: No free fluid or fluid collection. Bones: Mild degenerative changes of the spine, most significant at L5-S1 with circumferential disc bulge resulting in mild spinal canal stenosis. Soft tissues: Unremarkable. IMPRESSION: 1. Steatosis and hepatomegaly. Cholecystectomy. Normal biliary tree. 2. No evidence for bowel obstruction or inflammation. Normal appendix. Mild burden of diverticulosis coli. 3. Nonobstructing left intrarenal calculus. Signed by: Dr. Dilip Arciniega MD on 03/05/2018 6:50 PM
--- NOTE | 2018-03-05 19:18 | NUR ---
2ND LACTIC ACID COLLECTED AND SENT TO LAB ORDERED.
[2018-03-05 19:22] LABS: ABG HCO3 19 mmol/L (23-28); ABG PCO2 32 mmHg (41-51); ABG PH 7.38 (7.31-7.41); ABG PO2 80 mmHg (80-105)
--- OUTSIDE RECORDS SUMMARY | 2018-03-05 19:26 | XMS REPORT | Clinical Summary ---
Author Author Rajiv Nondenominational Organization [place] Nond[employer] Address Unknown Phone Unavailable Care Team Providers Care Director Of Housing Name Role Phone Asked, No Pcp PCP [...] MMODE SPECTRAL 2:50 PM CDT COLOR DOPPLER ([id number]) POC GLUCOSE Routine 12/22/2017 1:22 PM CDT [...] glucose 217 (H) 65 - 99 mg/dL [facility] DEPARTMENT OF Comment: PATHOLOGY AND H Notified [facility] Meter ID: [id number] Geriatric Case Manager: mau spivey Performing Organization Address City/State/Zipcode Phone Number [facility] DEPARTMENT OF [address] [place] [address] PATHOLOGY AND GENOMIC MEDICINE * Cv ecg exercise stress (nuclear or echo) (12/23/2017 12:42 PM CDT) Resting HR 69 [facility] MUSE Resting BP 143 [facility] MUSE Peak MET Achieved 1.0 [facility] MUSE Protocol Name CELY [facility] MUSE Time in Exercise Phase 00:01:00 H MUSE Max Systolic BP 145 H MUSE Max Diastolic BP 87 [facility] MUSE Max Heart Rate 102 [facility] MUSE Max Predicted Heart Rate 171 [facility] MUSE Target HR Formula (220 - Age)*100% [facility] MUSE Test Indication chest pain [facility] MUSE Arrhy During Ex [facility] MUSE ECG Interp Before EX [facility] MUSE ECG Interp During Ex H MUSE Ex Summary Comment [facility] MUSE Overall HR Response to [facility] MUSE Exercise Overall BP Response To [facility] MUSE Exercise Reason for Termination [facility] MUSE Stress Test Impression -Waveform interpreted in [facility] MUSE report associated with image study. No interpretation is provided as part of this Stress ECG report.- Performing Organization Address City/State/Zipcode Phone Number [facility] [address] [place] [address] * Myocardial perfusion (12/23/2017 12:42 PM CDT) Only the most recent of 2 results within the time period is included. Narrative Performed At [facility] Nuclear Cardiology and Cardiac CT [address] [place] [address] Myocardial Perfusion Imaging Report Stress ECG tracings are available in MUSE, Kids Calendar and CV Web All ECG interpretations are included in this report Pat.Name:TOM, HANG CARRINGTON Pat.ID:[id number] .Date: 12/23/2017Refer.MD:CORINE GIBSON MD Exam Time: 11:50:00 AM Study Type:Myocardial Perfusion Imaging Height:63inWeight:173lb BSA: 1.82 m2 DOBAge:1970,47Y Sex: MALEBP:143/92 HR:71 bpmHCT: 47 % Nuclear Tech:BETY Noland, ARRT, Gena Santa ARRT, NMTCB Pat. Stat.:Inpatient Room:[address] Event ID:[id number] Order ID:[id number] Reason for Study:Eval for Ischemia, Chest pain History / Clinical:Diabetes, Hyperlipidemia, Hypertension Procedures:Low Dose Stress Only Race:C Risk Factors:Known Coronary Atherosclerosis, Diabetes, Hyperlipidemia, Hypertension, Prior MA Clinical Symptoms:Regadenoson Physical Exam:S1, S2 Surgery: Serum [...] PM CDT Nuclear Cardiology and Cardiac CT [address] [place] [address] Myocardial Perfusion Imaging Report Stress ECG tracings are available in [employer], Kids Calendar and [employer] All ECG interpretations are included in this report Pat.Name: HANG TOM Pat.ID: [id number] St.Date: 12/23/2017 Refer.MD: CORINE GIBSON MD Exam Time: 11:50:00 AM Study Type:Myocardial Perfusion Imaging Height: 63in Weight: 173lb BSA: 1.82 m2 Age: 10 1970,47Y Sex: MALE BP: 143/92 HR: 71 bpm HCT: 47 % Nuclear Tech:Anselmo Maloney, ROLL OR TAPE EDGE MACHINE OPERATOR, ARRT, Gena Santa, ARRT, NMTCB Pat. Stat.:Inpatient Room: [facility] Nuclear Event ID:[id number] Order ID: [id number] Reason for Study:Eval for Ischemia, Chest pain History / Clinical:Diabetes, Hyperlipidemia, Hypertension Procedures:Low Dose Stress Only Race: C Risk Factors:Known Coronary Atherosclerosis, Diabetes, Hyperlipidemia, Hypertension, Prior MA Clinical Symptoms:Regadenoson Physical Exam:S1, S2 Surgery: Serum [...] Organization Address City/State/Zipcode Phone Number [facility] [address] [place] [address] * Estimated GFR (12/23/2017 4:23 AM CDT) Only the most recent of 2 results within the time period is included. Estimated GFR 79 mL/min/1.73 m2 [facility] DEPARTMENT OF Comment: PATHOLOGY AND Cater[employer]oryUnitsInte GENOMIC MEDICINE rpretation G1 >=90 Normal or high G2 60-89Mildly decreased [id number] Mildly to moderately decreased [id number] Moderately to severely decreased G4 15-29Severely decreased G5 <15Kidney failure The eGFR was calculated using the Chronic Kidney Disease Epidemiology Collaboration (CKD-EPI) equation. Interpretation is based on recommendations of the National Kidney Foundation-Kidney Disease Outcomes Quality Initiative (NKF-KDOQI) published in 2014. Specimen Plasma specimen Performing Organization Address City/[facility] [place] [address] PATHOLOGY AND [place] MEDICINE * Troponin (12/23/2017 4:23 AM CDT) Only the most recent of 5 results within the time period is included. Troponin <0.30 0.00 - 0.30 ng/mL [facility] DEPARTMENT OF Comment: PATHOLOGY AND 0.30 - 1.49 GENOMIC MEDICINE ng/mlMay indicate increased risk of acute coronary syndrome. >=1.5 ng/ml Consistent with acute myocardial infarction. The diagnostic value of a single normal or non-diagnostic result is questionable.Serial samples at 2-6 hour intervals are required to rule out acute myocardial injury. Specimen Plasma specimen Performing Organization Address [facility] [place] [address] PATHOLOGY AND [place] MEDICINE * Lactic acid level (12/23/2017 4:23 AM CDT) Lactic acid 2.8 (H) 0.5 - 2.2 mmol/L [facility] DEPARTMENT OF PATHOLOGY AND [place] MEDICINE Specimen Plasma specimen Performing Organization Address City/[facility] [place] [address] PATHOLOGY AND [place] MEDICINE * Hemoglobin A1c (12/23/2017 4:23 AM CDT) Hemoglobin A1C 8.0 (H) 4.0 - 5.6 % [facility] DEPARTMENT OF Comment: PATHOLOGY AND HbA1c cutoffs for diagnosing GENOMIC MEDICINE diabetes: 4.0% - 5.6%=normal 5.7% - 6.4%=increased risk for diabetes (prediabetes) >=6.5%=diabetes Goals for glycemic control (ADA 2016) < 7.0%Target for non adults with diabetes. More or less stringent targets may be appropriate for individual patients. <7.5% Target for Children and adolescents with type 1 diabetes. Specimen Blood Performing Organization Address [facility] [place] [address] PATHOLOGY AND GENOMIC MEDICINE * Valproic acid level (12/23/2017 4:23 AM CDT) Valproic acid 56.3 50.0 - 100.0 ug/mL [facility] DEPARTMENT OF Comment: PATHOLOGY AND Therapeutic Range: GENOMIC MEDICINE 50 - 100 ug/mL Specimen Plasma specimen Performing Organization Address [facility] [place] [address] PATHOLOGY AND GENOMIC MEDICINE * Basic metabolic panel (12/23/2017 4:23 AM CDT) Only the most recent of 3 results within the time period is included. Sodium 139 135 - 148 mEq/L [facility] DEPARTMENT OF PATHOLOGY AND GENOMIC MEDICINE Potassium 4.2 3.5 - 5.0 mEq/L [facility] DEPARTMENT OF PATHOLOGY AND GENOMIC MEDICINE Chloride 101 98 - 112 mEq/L [facility] DEPARTMENT OF PATHOLOGY AND GENOMIC MEDICINE CO2 26 24 - 31 mEq/L [facility] DEPARTMENT OF PATHOLOGY AND GENOMIC MEDICINE Anion gap 12@ANIO 7 - 15 mEq/L [facility] DEPARTMENT OF PATHOLOGY AND GENOMIC MEDICINE BUN 11 6 - 20 mg/dL [facility] DEPARTMENT OF PATHOLOGY AND GENOMIC MEDICINE Creatinine 1.09 0.70 - 1.20 mg/dL [facility] DEPARTMENT OF PATHOLOGY AND GENOMIC MEDICINE Glucose 95 65 - 99 mg/dL [facility] DEPARTMENT OF PATHOLOGY AND GENOMIC MEDICINE Calcium 9.2 8.3 - 10.2 mg/dL [facility] DEPARTMENT OF PATHOLOGY AND GENOMIC MEDICINE Specimen Plasma specimen Performing Organization Address [facility] [place] [address] PATHOLOGY AND GENOMIC MEDICINE * CT Chest [...] SUMMARY: No acute or suspicious finding identified. [facility]-[id number] Procedure Note [facility], Radiology Results Incoming - 12/22/2017 7:14 PM [...] SUMMARY: No acute or suspicious finding identified. [facility]-[id number] Performing Organization Address City/[facility]/Zipcode Phone Number [facility] [address] [place] [address] * Lactic acid level, SEPSIS - Now and repeat 2x every 3 hours (12/22/2017 2:59 PM CDT) Only the most recent of 2 results within the time period is included. Lactic acid 4.9 (HH) 0.5 - 2.2 mmol/L [facility] DEPARTMENT OF PATHOLOGY AND GENOMIC MEDICINE Specimen Blood Performing Organization Address City/[facility]/Zipcode Phone Number [facility] DEPARTMENT OF [address] [place] [address] PATHOLOGY AND GENOMIC MEDICINE * Echocardiogram complete w contrast and 3D if needed (12/22/2017 2:50 PM CDT) Narrative Performed At [facility] Echocardiography Report [address], [address], [place] [address] Pat.Name:HANG TOM.ID:[id number] .Date: 12/22/2017Refer.MD:ILDA GIBSON MD Exam Time: 2:27:00 PMStudy Type:Routine Echo Height:63inWeight:175lb BSA: 1.83 m2 DOBAge:1970,47Y Sex: MALEBP:101/51 HR:86 bpm Sonogrphr: Chapis Shine RDCS, RVT/ Lilliana Mendez (student) Maria C. Stat.:Inpatient Room:[facility] Study Status:Final Echo Event ID:[id number] Order ID:[id number] Reason for Study:Hypertension - Initial eval of [...] PA systolic pressure. MEASUREMENTS: 2D Parasternal [place] LVOT 2 cmLA Ds3.5 cm LVIDd4.3 cmIndex2.3 cm/m Ao An2 cm LVIDs2.6 cmAo Rtd 3 cm Index1.7 cm/m LV%fs 39 % LV Epcg969.9 g(122-174) IVSd 1.2 cmLVM Index 97.7 g/m2 LVPWd1.2 cmRWT0.6 LA Sng Plane LA Area 14.5 cm2(8.8-23.4) LA Vol30.5 ml Index16.7 ml/m LA LngAx 5.8 cm DOPPLER LVOT Stroke Vol LVOT 2 cmLVOT CO5.2 l/min LVOT TVI19.6 cmLVOT CI2.8 l/m/m2 LVOT Tm297 izcnAP67 bpm LVOT SV 61.4 ml Signed 12/22/2017 04:15 PM Anjel Portillo M.D. Procedure Note Interface, Radiology Results In - 12/22/2017 4:15 PM CDT Echocardiography Report [address] [place] [address] Pat.Name: HANG TOM.ID: [id number] .Date: 12/22/2017 Refer.MD: ILDA GIBSON MD Exam Time: 2:27:00 PM Study Type:Routine Echo Height: 63in Weight: 175lb BSA: 1.83 m2 Age: 10 1970,47Y Sex: MALE BP: 101/51 HR: 86 bpm Sonogrphr: Chapis Shine, RDCS, RVT/ Lilliana Mendez (student) Pat. Stat.:Inpatient Room: [facility] Study Status:Final Echo Event ID:[id number] Order ID: [id number] Reason for Study:Hypertension - Initial eval of [...] PA systolic pressure. MEASUREMENTS: 2D Parasternal [place] LVOT 2 cm LA Ds 3.5 cm [...] Organization Address City/State/Zipcode Phone Number [facility] [address] [place] [address] * ECG ED Preliminary Interpretation - NOT AN ORDER (12/22/2017 10:31 AM CDT) Narrative Performed At Attila Rosales DO 12/22/20171:52 PM ECG ED Preliminary Interpretation - Not an Order Performed by: ATTILA ROSALES Authorized by: ATTILA ROSALES ECG reviewed by ED Physician in the absence of a bay stocker: yes Previous ECG: Previous ECG:Compared to current [...] Regional osseous structures remain normal in appearance. [id number] Procedure Note Interface, Radiology Results Incoming - 12/22/2017 9:41 AM CDT EXAMINATION: XR CHEST 1 VW PORTABLE CLINICAL HISTORY: Chest pain concern for ACs COMPARISON: 05/20/2017. IMPRESSION: 1. LINES/TUBES: None. 2. LUNGS: Clear. 3. HEART: Heart size is normal.. 4. PLEURA: No evidence for pleural effusion or pneumothorax.. 5. OTHER: Regional osseous structures remain normal in appearance. [id number] Performing Organization Address City/[facility]/[place] [address] * Partial thromboplastin time, activated (12/22/2017 9:18 AM CDT) PTT 31.1 23.0 - 36.0 sec [facility] DEPARTMENT OF Comment: PATHOLOGY AND PTT therapeutic range for [facility] unfractionated heparin is 61.0-112.0 seconds which corresponds to Anti-Xa 0.3-0.7 U/ml. Specimen Blood Performing Organization Address [facility] Phone Number [facility] DEPARTMENT [address] [address] PATHOLOGY AND GENOMIC MEDICINE * Prothrombin time with INR (12/22/2017 9:18 AM CDT) Prothrombin time 12.8 12.0 - 15.0 sec [facility] DEPARTMENT OF PATHOLOGY AND GENOMIC MEDICINE INR 1.0 [facility] DEPARTMENT OF Comment: PATHOLOGY AND The International Normalized GENOMIC MEDICINE Ratio (INR) is a therapeutic monitoring tool for patients who are stable on oral anticoagulant therapy. An INR of 2.0-3.0 is suggested for deep vein thrombosis/pulmonary embolism. Specimen Blood Performing Organization Address [facility] Phone Number [facility] DEPARTMENT [address] [address] PATHOLOGY AND [place] MEDICINE * CBC with platelet and differential (12/22/2017 9:18 AM CDT) Only the most recent of 3 results within the time period is included. WBC 9.19 4.50 - 11.00 k/uL [facility] DEPARTMENT OF PATHOLOGY AND GENOMIC MEDICINE RBC 6.07 (H) 4.40 - 6.00 m/uL [facility] DEPARTMENT OF PATHOLOGY AND GENOMIC MEDICINE HGB 14.4 14.0 - 18.0 g/dL [facility] DEPARTMENT OF PATHOLOGY AND GENOMIC MEDICINE HCT 47.0 41.0 - 51.0 % [facility] DEPARTMENT OF PATHOLOGY AND GENOMIC MEDICINE MCV 77.4 (L) 82.0 - 100.0 fL [facility] DEPARTMENT OF PATHOLOGY AND GENOMIC MEDICINE MCH 23.7 (L) 27.0 - 34.0 pg [facility] DEPARTMENT OF PATHOLOGY AND GENOMIC MEDICINE MCHC 30.6 (L) 31.0 - 37.0 g/dL [facility] DEPARTMENT OF PATHOLOGY AND GENOMIC MEDICINE RDW - SD 48.0 37.0 - 55.0 fL [facility] DEPARTMENT OF PATHOLOGY AND GENOMIC MEDICINE MPV 10.2 8.8 - 13.2 fL [facility] DEPARTMENT OF PATHOLOGY AND GENOMIC MEDICINE Platelet count 267 150 - 400 k/uL [facility] DEPARTMENT OF PATHOLOGY AND GENOMIC MEDICINE Nucleated RBC 0.00 /100 WBC [facility] DEPARTMENT OF PATHOLOGY AND GENOMIC MEDICINE Neutrophils 66.9 39.0 - 69.0 % [facility] DEPARTMENT OF PATHOLOGY AND GENOMIC MEDICINE Lymphocytes 21.5 (L) 25.0 - 45.0 % [facility] DEPARTMENT OF PATHOLOGY AND GENOMIC MEDICINE Monocytes 9.5 0.0 - 10.0 % [facility] DEPARTMENT OF PATHOLOGY AND GENOMIC MEDICINE Eosinophils 1.2 0.0 - 5.0 % [facility] DEPARTMENT OF PATHOLOGY AND GENOMIC MEDICINE Basophils 0.5 0.0 - 1.0 % [facility] DEPARTMENT OF PATHOLOGY AND GENOMIC MEDICINE Immature granulocytes 0.4Comment: "Immature 0.0 - 1.0 % [facility] DEPARTMENT OF granulocytes" (promyelocytes, PATHOLOGY AND myelocytes, metamyelocytes) GENOMIC MEDICINE Specimen Blood Performing Organization Address City/[facility]/[place] [address] PATHOLOGY [facility] GENOMIC [facility] * Phosphorus level (12/22/2017 9:18 AM CDT) Phosphorus 2.7 2.4 - 4.5 mg/dL [facility] DEPARTMENT OF PATHOLOGY AND GENOMIC MEDICINE Specimen Plasma specimen Performing Organization Address City/[facility] [place] [address] PATHOLOGY [facility] * B natriuretic peptide (12/22/2017 9:18 AM CDT) Only the most recent of 2 results within the time period is included. BNP 3 0 - 100 pg/mL [facility] DEPARTMENT OF PATHOLOGY AND GENOMIC MEDICINE Specimen Blood Performing Organization Address [facility] [place] [address] PATHOLOGY AND GENOMIC MEDICINE * Magnesium level (12/22/2017 9:18 AM CDT) Magnesium 1.9 1.6 - 2.6 mg/dL [facility] DEPARTMENT OF PATHOLOGY AND GENOMIC MEDICINE Specimen Plasma specimen Performing Organization Address [facility] Phone Number [facility] [place] [address] PATHOLOGY AND GENOMIC MEDICINE * Creatine kinase, total (CPK) (12/22/2017 9:18 AM CDT) Creatine kinase 135 39 - 308 U/L [facility] DEPARTMENT OF PATHOLOGY AND GENOMIC MEDICINE Specimen Plasma specimen Performing Organization Address [facility] Phone Number [facility] [place] [address] PATHOLOGY AND GENOMIC MEDICINE * Hepatic function panel (12/22/2017 9:18 AM CDT) Albumin 3.6 3.5 - 5.0 g/dL [facility] DEPARTMENT OF PATHOLOGY AND GENOMIC MEDICINE Total bilirubin 0.4 0.0 - 1.2 mg/dL [facility] DEPARTMENT OF PATHOLOGY AND GENOMIC MEDICINE Bilirubin direct <0.2 0.0 - 0.3 mg/dL [facility] DEPARTMENT OF PATHOLOGY AND GENOMIC MEDICINE Alkaline phosphatase 55 40 - 129 U/L [facility] DEPARTMENT OF PATHOLOGY AND GENOMIC MEDICINE Protein 8.1 6.3 - 8.3 g/dL [facility] DEPARTMENT OF Comment: PATHOLOGY AND [place] GENOMIC MEDICINE 4.6-7.0 g/dL 1 week 4.4-7.6 g/dL 7 months-1year 5.1-7.3 g/dL 1-2 years5.6-7 .5 g/dL >3 years6.0-8 .0 g/dL 18-150 6.3-8.3 g/dL ALT 20 5 - 50 U/L [facility] DEPARTMENT OF PATHOLOGY AND GENOMIC MEDICINE AST 23 10 - 50 U/L [facility] DEPARTMENT OF PATHOLOGY AND GENOMIC MEDICINE Specimen Plasma specimen Performing Organization Address [facility]otx Phone Number [facility] [place] [address] PATHOLOGY AND GENOMIC MEDICINE * ECG 12 lead (12/22/2017 8:55 AM CDT) Only the most recent of 2 results within the time period is included. Ventricular rate 91 [facility] Atrial rate 91 [facility] TX interval 146 [facility] QRSD interval 120 [facility] QT interval 328 [facility] QTC interval 403 [facility] P axis 1 17 [facility] QRS axis 1 -57 [facility] T wave axis 90 [facility] EKG impression Normal sinus rhythm-Left [facility] MUSE anterior fascicular block-Left ventricular hypertrophy with QRS widening and repolarization abnormality-Abnormal ECG-No previous ECGs available- Performing Organization Address [facility] Phone Number [facility] MUSE [address] [place] [address] * Cv ecg exercise stress (nuclear or echo) (05/21/2017 12:20 PM CDT) Resting HR 69 [facility] Resting BP 127 [facility] Peak MET Achieved 1.0 H MUSE Protocol Name REGADENO [facility] MUSE Time in Exercise Phase 00:01:00 [facility] Max Systolic BP 147 [facility] Max Diastolic BP 83 [facility] Max Heart Rate 101 [facility] Max Predicted Heart Rate 171 [facility] Target HR Formula (220 - Age)*100% H MUSE Test Indication chest pain [facility] MUSE Stress Test Impression -Waveform interpreted in [facility] MUSE report associated with image study. No interpretation is provided as part of this Stress ECG report.- Target HR 145.35 bpm [facility] MUSE Performing Organization Address [facility] Phone Number [facility] MUSE [address] [place] [address] * Estimated GFR (05/21/2017 4:00 AM CDT) Only the most recent of 2 results within the time period is included. GFR Non Af Amer 64 mL/min/1.73 m2 [facility] DEPARTMENT OF PATHOLOGY AND GENOMIC MEDICINE GFR Af Amer 78 mL/min/1.73 m2 [facility] DEPARTMENT OF Comment: PATHOLOGY AND Chronic kidney [...] Americans. Specimen Plasma specimen Performing Organization Address [facility] Phone Number [facility] DEPARTMENT OF [address] [place] [address] PATHOLOGY AND GENOMIC MEDICINE * Lipid panel (05/21/2017 4:00 AM CDT) Cholesterol 106 <200 mg/dL [facility] DEPARTMENT OF PATHOLOGY AND GENOMIC MEDICINE Triglycerides 148 <150 mg/dL [facility] DEPARTMENT OF PATHOLOGY AND GENOMIC MEDICINE HDL cholesterol 32 (L) >40 mg/dL [facility] DEPARTMENT OF PATHOLOGY AND GENOMIC MEDICINE LDL cholesterol 63Comment: Result obtained by <100 mg/dL [facility] DEPARTMENT OF direct LDL measurement PATHOLOGY AND GENOMIC MEDICINE Lipid panel SeeBelow [facility] DEPARTMENT OF interpretation Comment: PATHOLOGY AND Total [...] mg/dL) Specimen Plasma specimen Performing Organization Address City/[facility] Phone Number [facility] DEPARTMENT OF [address] [place] [address] PATHOLOGY AND [place] MEDICINE * Comprehensive metabolic panel (05/20/2017 10:05 AM CDT) Sodium 144 135 - 148 mEq/L [facility] DEPARTMENT OF PATHOLOGY AND GENOMIC MEDICINE Potassium 4.7 3.5 - 5.0 mEq/L [facility] DEPARTMENT OF PATHOLOGY AND GENOMIC MEDICINE Chloride 101 98 - 112 mEq/L [facility] DEPARTMENT OF PATHOLOGY AND GENOMIC MEDICINE CO2 29 24 - 31 mEq/L [facility] DEPARTMENT OF PATHOLOGY AND GENOMIC MEDICINE Anion gap 14 7 - 15 mEq/L [facility] DEPARTMENT OF Comment: PATHOLOGY AND Starting from June GENOMIC MEDICINE , anion gap calculation no longer incorporates potassium. Please note the change. BUN 8 6 - 20 mg/dL [facility] DEPARTMENT OF PATHOLOGY AND GENOMIC MEDICINE Creatinine 1.1 0.7 - 1.2 mg/dL [facility] DEPARTMENT OF PATHOLOGY AND GENOMIC MEDICINE Glucose 113 (H) 65 - 99 mg/dL [facility] [facility] DEPARTMENT OF PATHOLOGY AND GENOMIC MEDICINE Calcium 10.1 8.3 - 10.2 mg/dL [facility] DEPARTMENT OF PATHOLOGY AND GENOMIC MEDICINE Protein 7.8 6.3 - 8.3 g/dL [facility] DEPARTMENT OF Comment: PATHOLOGY AND [place] GENOMIC MEDICINE 4.6-7.0 g/dL 1 week 4.4-7.6 g/dL 7 months-1year 5.1-7.3 g/dL 1-2 years5.6-7 .5 g/dL >3 years6.0-8 .0 g/dL 18-150 6.3-8.3 g/dL Albumin 3.6 3.5 - 5.0 g/dL [facility] DEPARTMENT OF PATHOLOGY AND GENOMIC MEDICINE A/G ratio 0.9 0.7 - 3.8 [facility] DEPARTMENT OF PATHOLOGY AND GENOMIC MEDICINE Alkaline phosphatase 47 40 - 129 U/L [facility] DEPARTMENT OF PATHOLOGY AND GENOMIC MEDICINE AST 24 10 - 50 U/L [facility] DEPARTMENT OF PATHOLOGY AND GENOMIC MEDICINE ALT 20 5 - 50 U/L [facility] DEPARTMENT OF PATHOLOGY AND GENOMIC MEDICINE Total bilirubin 0.4 0.0 - 1.2 mg/dL [facility] DEPARTMENT OF PATHOLOGY AND GENOMIC MEDICINE Specimen Plasma specimen Performing Organization Address City/State/Zipcode Phone Number [facility] DEPARTMENT OF [address] [place] [address] PATHOLOGY AND GENOMIC MEDICINE after 03/04/2017 Insurance Payer Benefit Subscriber ID Type Phone Address Plan / Group BCBS BCBS xxxxxxxxxxxx PPO CHOICE PPO/FEDERA L EMPL PPO Advance Directives Patient has advance care planning documents on file. For more information, malathi e contact: Rajiv Wallace [address] [place] [phone]
--- NOTE | 2018-03-05 19:27 | NUR ---
CONSENT FOR CENTRAL LINE SIGNED BY PT.
[2018-03-05] MEDS ORDERED: CEFEPIME HCL 1 GM VIAL IV SCH (19:30)
[2018-03-05] MEDS ORDERED: VANCOMYCIN 1GM/NS 250 ML 250 ML IV SCH (19:30)
[2018-03-05] MEDS ORDERED: DEXTROSE 50% SYRINGE 50 ML IV PRN (19:30)
[2018-03-05 19:43] LABS: BAND NEUTROPHILS % (MANUAL) 5 %; LYMPHOCYTES % (MANUAL) 5 % (19-48); MONOCYTES % (MANUAL) 4 % (3.4-9.0); NEUTROPHILS % (MANUAL) 86 % (40-74)
[2018-03-05 19:45] LABS: MICROCYTOSIS SLIGHT; PLATELET ESTIMATE ADEQUATE; PLATELET MORPHOLOGY COMMENT FEW GIANT
--- NOTE | 2018-03-05 20:16 | Diagnostic Imaging Report ---
EXAM: CHEST XRAY LINE PLACEMENT, AP 1 view INDICATION: Central line placement COMPARISON: PA and lateral view of the chest March 05, 2018 FINDINGS: LINES/TUBES: Right internal jugular vein central line tip terminates in expected location of the atriocaval junction. LUNGS: No consolidations or edema. PLEURA: No effusions or pneumothorax. HEART AND MEDIASTINUM: Normal size and contour. BONES AND SOFT TISSUES: No acute findings. IMPRESSION: Right internal jugular vein central line tip terminates in expected location of the atriocaval junction. No pneumothorax. Signed by: Dr. Malissa Brothers M.D. on 03/05/2018 8:12 PM
[2018-03-05] MEDS: MEROPENEM 1GM 100 ML IV SCH (20:27)
[2018-03-05 21:00] VITALS: BP 100/58
[2018-03-05] MEDS: INSULIN LISPRO 100 UNIT/1 ML 3ML VIAL SQ SCH (21:00)
[2018-03-05 21:47] VITALS: BP 119/67
[2018-03-05 22:00] VITALS: BP 131/80
[2018-03-05 23:00] VITALS: BP_SYST 121; BP_SYST 124; BP_DIAS 75; BP_DIAS 77
[2018-03-05] MEDS: CEFEPIME 1GM/NS 0.9% 50 ML 50 ML IV SCH (23:14)
[2018-03-05 23:47] LABS: CREATINE KINASE MB 0.5 ng/mL (0-5.0)
[2018-03-05 23:59] VITALS: BP 124/75
[2018-03-06] VITALS (26 sets, daily range): BP systolic 100–166; BP diastolic 58–108
[2018-03-06] MEDS: SODIUM CHLORIDE 0.9% 1000ML 1,000 ML IV SCH ×5 (01:40→18:23)
[2018-03-06 04:44] LABS: BASOPHILS % 0.2 % (0.0-1.0); EOSINOPHILS # (AUTO) 0.1 (0.0-0.4); EOSINOPHILS % 0.7 % (0.0-6.0); HEMATOCRIT 40.1 % (38.2-49.6); HEMOGLOBIN 12.7 g/dL (14.0-18.0); LYMPHOCYTES # (AUTO) 0.4 (1.0-3.2); LYMPHOCYTES % 4.6 % (18.0-39.1); MEAN CORPUSCULAR HEMOGLOBIN 24.2 pg (28-32); MEAN CORPUSCULAR HGB CONC 31.7 g/dL (31-35); MEAN CORPUSCULAR VOLUME 76.5 fL (81-99); MONOCYTES # (AUTO) 0.6 (0.2-0.8); MONOCYTES % 6.7 % (4.4-11.3); NEUTROPHILS % 87.1 % (38.7-80.0); PLATELET COUNT 171 x10e3/uL (140-360); RED BLOOD COUNT 5.24 x10e6/uL (4.3-5.7); RED CELL DISTRIBUTION WIDTH 19.6 % (11.7-14.4)
[2018-03-06] MEDS ORDERED: ACETAMINOPHEN 325 MG TAB PO PRN (04:45)
[2018-03-06 05:06] LABS: ALBUMIN/GLOBULIN RATIO 0.7 (0.8-2.0); CREATININE, SERUM 1.34 mg/dL (0.72-1.25); MAGNESIUM 1.9 MG/DL (1.3-2.1); PHOSPHORUS 2.9 MG/DL (2.3-4.7)
--- NOTE | 2018-03-06 05:08 | NUR ---
pt is complaining of a sever headache [address] out [address] Conley received orders for Tylenol 650 mg.
[2018-03-06 05:59] LABS: CREATINE KINASE 179 IU/L (30-200)
--- NOTE | 2018-03-06 06:10 | NUR ---
pt has had no release from his headache called dr Conley x 2 still waiting a call back. pain 9 out of 10 with nausea
[2018-03-06] MEDS ORDERED: ONDANSETRON HCL INJ 2 MG/ML VIAL IV STA (06:17)
[2018-03-06] MEDS: TRAMADOL HCL 50 MG TAB PO SCH ×4 (06:37→19:59)
--- NOTE | 2018-03-06 07:06 | Consultation ---
DATE OF CONSULTATION: March 06, 2018 HISTORY OF PRESENT ILLNESS: Patient is a 48-year-old male, history of diabetes, hypertension, coronary artery disease, hyperlipidemia, who presents with pain and swelling of his right leg, around the right ankle, says he has had it for several weeks. He has been on p.o. antibiotics and also, have been in the hospital recently, but then he developed more pain yesterday, came back to the emergency room, where findings suggestive of sepsis. He has been treated with IV antibiotics and his leg is much improved per the patient and nursing staff. He has not had any fevers and walking without any trouble. PAST MEDICAL HISTORY: Significant for hypertension, diabetes, coronary artery disease, a previous myocardial infarction, hyperlipidemia, gastroesophageal reflux disease. He has had previous back surgery, cholecystectomy, repair of umbilical hernia, and coronary stents. MEDICATIONS: Listed in chart. ALLERGIES: HE HAS AN ALLERGY TO DEMEROL. FAMILY HISTORY: Significant for diabetes. SOCIAL HISTORY: The patient does not smoke cigarettes, does not drink alcohol. REVIEW OF SYSTEMS: Significant for migraine headaches, some abdominal discomfort. PHYSICAL EXAMINATION VITALS: At this time are normal. He is not tachycardic. GENERAL: The patient is awake and alert. HEENT: Reveals no scleral icterus. NECK: Has no masses. LUNGS: Equal breath sounds are clear bilaterally. CARDIAC: Regular rate and rhythm with no murmur. ABDOMEN: Soft. There is slight epigastric tenderness. There is no mass. There is no organomegaly. EXTREMITIES: In the right lower extremity at the ankle level, there is slight erythema, slight swelling. No crepitus. No signs of necrotic tissue or necrotizing infection. ASSESSMENT: This is a 48-year-old male with mild cellulitis of the right leg at this time. He had signs of sepsis on arrival. This is much improved with IV antibiotics with no findings at this time that warrant immediate surgical intervention. Recommend continue the patient on IV antibiotics as have been ordered. Thank you for asking me see to see Mr. Tom. Job#: [id number] CQ
[2018-03-06] MEDS: INSULIN LISPRO 100 UNIT/1 ML 3ML VIAL SQ SCH ×5 (07:30→20:57)
[2018-03-06] MEDS: CEFEPIME 1GM/NS 0.9% 50 ML 50 ML IV SCH (07:42)
--- NOTE | 2018-03-06 09:13 | NUR ---
Spoke with Dr Lanier regarding Na+ level, orders rec'd.
[2018-03-06] MEDS: MEROPENEM 1GM 100 ML IV SCH (09:14)
[2018-03-06 09:26] LABS: BLOOD UREA NITROGEN 13 mg/dL (7-26); GLUCOSE 111 mg/dL (74-118); OSMOLALITY,SERUM 260 mOsm/kg (278-305); SODIUM 129 mmol/L (136-145)
--- NOTE | 2018-03-06 09:58 | NUR ---
Consult called to Dr Dumont.
[2018-03-06] MEDS ORDERED: DIVALPROEX SODIUM 250 MG TAB...DR PO SCH (10:57)
[2018-03-06] MEDS: PRAMIPEXOLE DIHYDROCHLORIDE 0.25 MG TAB PO SCH (11:28)
[2018-03-06] MEDS: PROMETHAZINE HCL 25 MG TAB PO SCH (11:28)
[2018-03-06] MEDS: CLOPIDOGREL BISULFATE 75 MG TAB PO SCH (11:28)
[2018-03-06 12:33] LABS: CREATINE KINASE MB 0.5 ng/mL (0-5.0)
--- NOTE | 2018-03-06 14:23 | NUR ---
Dr Grey to bedside; okay to transfer to Med Surg.
--- NOTE | 2018-03-06 14:59 | Consultation ---
DATE OF CONSULTATION: INFECTIOUS DISEASE CONSULTATION REASON FOR CONSULTATION: Cellulitis of the leg. HISTORY OF PRESENT ILLNESS: This patient is very pleasant, well known to me from before, a 48-year-old, history of diabetes. Patient came to the emergency room with redness and swelling of his leg. I was contacted by the ER physician. There was significant pain in the leg. The patient was a little bit tachycardiac as if he is going to sepsis. I felt that he has severe cellulitis. I asked him to be admitted and started on IV antibiotic. The patient is currently doing much better. He is lying in bed comfortably. Patient denies any history of trauma. PAST MEDICAL HISTORY: Diabetes mellitus type 2, obesity, hypertension, coronary artery disease, cellulitis before. PAST SURGICAL HISTORY: Cholecystectomy. ALLERGIES: NKA. SOCIAL HISTORY: There is no smoking, drug abuse, alcohol abuse. FAMILY HISTORY: Otherwise unremarkable. REVIEW OF SYSTEMS: HEENT: Negative. PULMONARY: Negative. CARDIAC: Negative. : Negative. SKIN: There is no rash. JOINTS: Negative. PHYSICAL EXAMINATION: GENERAL: He is currently alert, oriented, does not seem to be in acute distress. VITALS: Stable. Currently afebrile. HEENT: He does not appear icteric. NECK: Supple. CHEST: Clear. HEART: S1 and S2. No S3, no S4. No murmur. ABDOMEN: Soft. Bowel sounds present. No tenderness. THE LEG: At the present time there is really no erythema noted on the leg. Yesterday it was apparently quite tender and the leg was swelling all the way to the mid thigh, but today it is much better. IMPRESSION: Cellulitis, sepsis. Much better, improving. Continue with the same antibiotic he is on and we started him. If he continues to improve in a day or two, can switch to oral antibiotic. Can leave the ICU. Continue diabetes control. Discussed with the patient. Will follow with you. Job#: [id number] PALLAVI
--- NOTE | 2018-03-06 16:12 | NUR ---
Repeatedly attempted to page Dr Conley through the service; disconnected each time, gas charger and house sup aware.
[2018-03-06] MEDS: METOPROLOL TARTRATE 50 MG TAB PO SCH (17:02)
[2018-03-06] MEDS: VANCOMYCIN 1GM/NS 250 ML 250 ML IV SCH (18:23)
--- NOTE | 2018-03-06 19:00 | NUR ---
Report received. Assumed care. Assessment done. See interventions.
[2018-03-06] MEDS: DIVALPROEX SODIUM 250 MG TAB...DR PO SCH (20:57)
--- NOTE | 2018-03-06 22:02 | NUR ---
Report called to Jonathan on MS 3.
--- NOTE | 2018-03-06 22:15 | NUR ---
Transferred per wheelchair with all belongings. Family with pt.
--- NOTE | 2018-03-06 22:20 | NUR ---
RECEIVED PT FROM ICU 196 VIA WHEELCHAIR. AAOX3, AMB WITH ASSISTANCE. PLATFORM WALKER AND WHEELCHAIR IN ROOM. NOTED TELE BOX 2454 SR, RIJ TRIPLE LUMEN, AND LAC20G INTACT. DENIES PAIN AT THIS TIME. NO S/S RESP DISTRESS. HAS MINIMAL REDNESS TO RLE. NO OPEN WOUNDS OR LESIONS. ON 1.5L FLUID RESTRICTIONS. HAS INSULIN PUMP TO R CHEST. FAMILY AT BEDSIDE. ORIENTED TO ROOM. CALL LIGHT WITHIN REACH AND INSTRUCTED TO CALL FOR ASSISTANCE. BED ALARM REFUSED.
[2018-03-07] VITALS (9 sets, daily range): BP systolic 122–170; BP diastolic 60–97
--- NOTE | 2018-03-07 00:07 | Consultation ---
DATE OF CONSULTATION: March 06, 2018 HISTORY: This is a 48-year-old very nice gentleman who has a history of diabetes, history of coronary artery disease, hypertension, hypercholesterolemia, history of migraine headache, who presented to the hospital because of problems with cellulitis and sepsis of the right lower extremities. Patient was also found to have elevation of liver function tests with the AST of 257 and ALT of 222 on admission. He denies any history of liver disease and he denies any history of alcohol abuse. He had a CAT scan of the abdomen and pelvis which shows steatosis and fatty liver, he is status post cholecystectomy. His liver enzymes today are coming down. OTHER MEDICAL PROBLEMS: Significant for history of diabetes, history of coronary artery disease, history of hypertension, history of hypercholesterolemia, history of migraine headache, status post cholecystectomy. ALLERGIES: DEMEROL. SOCIAL HISTORY: No alcohol use. FAMILY HISTORY: Noncontributory. REVIEW OF SYSTEMS: Denies any chest pain at this point. Denies any shortness of breath. Denies any dysphagia or odynophagia. Denies any dysuria, hematuria, jaundice, syncopal episodes along with this problem. PHYSICAL EXAMINATION: GENERAL: Patient is awake, alert, appeared to be stable, and not in acute distress at this point. VITAL SIGNS: Afebrile currently with stable vital signs. HEAD, EYES, EARS, NOSE, AND THROAT: Normocephalic, atraumatic. Sclerae are anicteric. NECK: Supple. HEART: Regular. LUNGS: Clear. ABDOMEN: Soft. There is no distention at this point. It is nontender. EXTREMITIES: With some cellulitis of the right lower extremities. LAB VALUES: AST today is 177, ALT of 202, this has improved from yesterday. CBC appeared to be okay. IMPRESSION: 1. Elevated liver function tests likely secondary to sepsis underlying disease of fatty liver. This has been improving right now. 2. Sepsis secondary to cellulitis, which is also doing better. 3. Diabetes. RECOMMENDATIONS: Monitor labs and monitor liver tests. Rule out hepatitis including possibility of autoimmune hepatitis. Follow clinically. Job#: [id number] cc:MD ADONIS SCHROEDER MD
--- NOTE | 2018-03-07 01:09 | NUR ---
PT IN BED RESTING. NO S/S OF RESP DISTRESS. CALL LIGHT WITHIN REACH AND BED LOCKED IN LOWEST POSITION.
[2018-03-07] MEDS: SODIUM CHLORIDE 0.9% 1000ML 1,000 ML IV SCH ×3 (03:16→21:30)
--- NOTE | 2018-03-07 04:30 | NUR ---
PT AWAKE AND LAYING IN BED. NO S/S OF RESP DISTRESS. DENIES PAIN AT THIS TIME. CALL LIGHT WITHIN REACH AND INSTRUCTED TO CALL FOR ASSISTANCE.
[2018-03-07] MEDS: TRAMADOL HCL 50 MG TAB PO SCH ×4 (05:02→21:33)
[2018-03-07 05:16] LABS: BASOPHILS % 0.5 % (0.0-1.0); EOSINOPHILS # (AUTO) 0.3 (0.0-0.4); EOSINOPHILS % 5.5 % (0.0-6.0); HEMATOCRIT 44.1 % (38.2-49.6); LYMPHOCYTES # (AUTO) 1.1 (1.0-3.2); LYMPHOCYTES % 18.1 % (18.0-39.1); MEAN CORPUSCULAR HEMOGLOBIN 24.3 pg (28-32); MEAN CORPUSCULAR HGB CONC 31.7 g/dL (31-35); MEAN CORPUSCULAR VOLUME 76.6 fL (81-99); MONOCYTES # (AUTO) 0.7 (0.2-0.8); MONOCYTES % 10.5 % (4.4-11.3); NEUTROPHILS % 65.1 % (38.7-80.0); PLATELET COUNT 173 x10e3/uL (140-360); RED BLOOD COUNT 5.76 x10e6/uL (4.3-5.7); RED CELL DISTRIBUTION WIDTH 19.8 % (11.7-14.4)
[2018-03-07 05:42] LABS: ALANINE AMINOTRANSFERASE 248 IU/L (0-55); ALBUMIN/GLOBULIN RATIO 0.7 (0.8-2.0); ALKALINE PHOSPHATASE 105 IU/L (40-150); ANION GAP 14.9 mmol/L (8-16); BLOOD UREA NITROGEN 14 mg/dL (7-26); BUN/CREATININE RATIO 12 (6-25); CALCIUM 9.2 mg/dL (8.4-10.2); CARBON DIOXIDE 23 mmol/L (22-29); CHLORIDE 102 mmol/L (98-107); CREATININE, SERUM 1.15 mg/dL (0.72-1.25); EST GLOMERULAR FILTRATION RATE > 60 ML/MIN (60-); GLUCOSE 125 mg/dL (74-118); POTASSIUM 3.9 mmol/L (3.5-5.1); SODIUM 136 mmol/L (136-145)
[2018-03-07] MEDS: INSULIN LISPRO 100 UNIT/1 ML 3ML VIAL SQ SCH ×4 (07:30→21:00)
[2018-03-07] MEDS: DIVALPROEX SODIUM 250 MG TAB...DR PO SCH ×2 (08:51→21:20)
[2018-03-07] MEDS: PRAMIPEXOLE DIHYDROCHLORIDE 0.25 MG TAB PO SCH (08:52)
[2018-03-07] MEDS: PROMETHAZINE HCL 25 MG TAB PO SCH (08:52)
[2018-03-07] MEDS: CLOPIDOGREL BISULFATE 75 MG TAB PO SCH (08:52)
[2018-03-07] MEDS: METOPROLOL TARTRATE 50 MG TAB PO SCH ×2 (08:52→17:49)
[2018-03-07] MEDS ORDERED: CLOPIDOGREL BISULFATE 75 MG TAB PO SCH (09:00)
[2018-03-07] MEDS ORDERED: PRAMIPEXOLE DIHYDROCHLORIDE 0.25 MG TAB PO SCH (09:00)
[2018-03-07] MEDS ORDERED: PROMETHAZINE HCL 25 MG TAB PO SCH (09:00)
[2018-03-07] MEDS ORDERED: DIVALPROEX SODIUM 250 MG TAB...DR PO SCH (09:00)
--- NOTE | 2018-03-07 11:48 | NUR ---
SOCIAL WORK INITIAL ASSESSMENT Desulfurizer Machine to bedside to discuss plan of care with patient/family. CM/SW role and care transitions discussed. Anticipated discharge plan discussed along with duration of care. CM/SW discussed patients right to make decisions in care. CM/SW work hours given. 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 Name and number was also written on the patients whiteboard. Patient verbalized understanding of discussion. CM will follow-up with ongoing discharge and transition of care needs.
[2018-03-07 11:59] LABS: CREATININE,URINE RANDOM 105.21 mg/dL (63-166); TOTAL PROTEIN, URINE 25.4 mg/dL (1-14)
[2018-03-07] MEDS: LORATADINE 10 MG TAB PO SCH (12:32)
[2018-03-07] MEDS ORDERED: CEFEPIME HCL 1 GM VIAL IV SCH (13:15)
[2018-03-07] MEDS: CEFEPIME 1GM/NS 0.9% 50 ML 50 ML IV SCH (14:14)
--- NOTE | 2018-03-07 15:52 | Diagnostic Imaging Report ---
EXAM: Renal Ultrasound COMPARISON: CT abdomen/pelvis 03/05/2018. TECHNIQUE: Transverse and longitudinal images of the kidneys and bladder were obtained. FINDINGS: Right Kidney: Length: Measures 11.9 x 5.8 x 4.2 cm Appearance: Normal echogenicity. Collecting system: No hydronephrosis Stones: None Cyst/Mass: No evidence of solid mass. Simple appearing 2 cm anechoic cyst is present in the right upper pole kidney. Left Kidney: Length: Measures 11.4 x 5.8 x 4.2 cm Appearance: Normal echogenicity. Collecting system: No hydronephrosis Stones: None. Punctate left upper pole calculus described on CT abdomen/pelvis from 03/05/2018 is not well seen by ultrasound. Cyst/Mass: None Bladder: Unremarkable in appearance. Bilateral ureteral jets are present. IMPRESSION: No evidence of hydronephrosis. Simple appearing right upper pole renal cyst. Punctate left upper pole calculus described on CT abdomen/pelvis from 03/05/2018 is not well seen by ultrasound. Signed by: Dr. Marta Sheth MD on 03/07/2018 3:48 PM
[2018-03-07] MEDS: VANCOMYCIN 1GM/NS 250 ML 250 ML IV SCH (17:49)
--- NOTE | 2018-03-07 19:57 | NUR ---
RECEIVED PT IN BED . AAOX3, AMB WITH ASSISTANCE. DENIES PAIN AT THIS TIME . NOTED TELE BOX 2454 SR, RIJ TRIPLE LUMEN, AND LAC20G INTACT. RESPIRATIONS ARE EVEN AND UNLABORED . NO REDNESS OR SWELLING NOTED HAS INSULIN PUMP TO R CHEST. CALL LIGHT WITHIN REACH AND CONTINUE TO MONITOR . BED ALARM REFUSED.
[2018-03-08] VITALS (8 sets, daily range): BP systolic 122–164; BP diastolic 60–92
[2018-03-08] MEDS: CEFEPIME 1GM/NS 0.9% 50 ML 50 ML IV SCH ×2 (01:50→13:30)
[2018-03-08] MEDS: SODIUM CHLORIDE 0.9% 1000ML 1,000 ML IV SCH ×3 (05:28→22:19)
[2018-03-08] MEDS: TRAMADOL HCL 50 MG TAB PO SCH ×3 (05:28→22:00)
--- NOTE | 2018-03-08 06:06 | NUR ---
PT RESTED DURING THE NIGHT AND DENIES PAIN .CALL LIGHT WITH IN REACH .CONTINUE TO MONITOR
--- NOTE | 2018-03-08 06:07 | NUR ---
PT RESTED DURING THE NIGHT NO ACUTE DISTRESS NOTED .CALL LIGHT WITH IN REACH .CONTINUE TO MONITOR
--- NOTE | 2018-03-08 07:22 | NUR ---
PATIENT IN BED RESTING WITH S/S OF DISCOMFORT. INSULIN PUMP INTACT TO RIGHT ABDOMEN. BED IN LOWER POSITION, CALL LIGHT AT REACH.
--- NOTE | 2018-03-08 07:25 | NUR ---
REPORT GIVEN TO THE ONCOMING NURSE.
[2018-03-08] MEDS: INSULIN LISPRO 100 UNIT/1 ML 3ML VIAL SQ SCH ×4 (07:30→21:00)
[2018-03-08] MEDS: LORATADINE 10 MG TAB PO SCH (09:38)
[2018-03-08] MEDS: DIVALPROEX SODIUM 250 MG TAB...DR PO SCH ×2 (09:38→21:13)
[2018-03-08] MEDS: CLOPIDOGREL BISULFATE 75 MG TAB PO SCH (09:39)
[2018-03-08] MEDS: PRAMIPEXOLE DIHYDROCHLORIDE 0.25 MG TAB PO SCH (09:39)
[2018-03-08] MEDS: PROMETHAZINE HCL 25 MG TAB PO SCH (09:39)
[2018-03-08] MEDS: METOPROLOL TARTRATE 50 MG TAB PO SCH ×2 (09:39→17:44)
--- NOTE | 2018-03-08 11:43 | NUR ---
DISCUSSED PT W AL W INF DISEASE. STATES PT IS A FAILED OUTPATIENT TREATMENT AND WILL NEED AN LTAC EVAL. DISCUSSED POSSIBLE MEETING OF SNF. CALL WAS PLACED TO DR. SUGGS. STATES HE WOULD LIKE FOR THE PT TO GO TO AN LTAC DUE TO THE COMPLEXITY OF THE PT'S CARE; INSULIN PUMP, FAILED OUTPATIENT TREATMENT, COMPLEX DM. MET WITH THE PT AT THE BEDSIDE TO REVIEW CHOICES. STATES HE WOULD LIKE TO GO TO [facility] [address]. CHOICE LETTER WAS SIGNED. COPY TO CHART AND COPY TO PT. BAM RIBEIRO NOTIFIED.
--- NOTE | 2018-03-08 11:52 | NUR ---
DR CLAYTON PA IN TO SEE PATIENT, NEW OR [facility] RECEIVED FOR LTAC EVAL. PATIENT AWARE OF PLAN OF CARE.
--- NOTE | 2018-03-08 15:50 | NUR ---
PATIENT SITTING UP IN BED PLAYING ON HIS PHONE. ALL PERSONAL ITEMS CLOSE TO PATIENT, CALL LIGHT AT REACH.
--- NOTE | 2018-03-08 19:52 | NUR ---
RECEIVED PT IN BED AOX3 .NO ACUTE DISTRESS NOTED .DENIES PAIN AT THIS TIME .CALL LIGHT WITH IN REACH .CONTINUE TO MONITOR
[2018-03-08] MEDS: VANCOMYCIN 1GM/NS 250 ML 250 ML IV SCH (20:30)
[2018-03-09] VITALS (9 sets, daily range): BP systolic 140–177; BP diastolic 71–91
[2018-03-09] MEDS: CEFEPIME 1GM/NS 0.9% 50 ML 50 ML IV SCH ×2 (01:30→14:34)
[2018-03-09] MEDS: SODIUM CHLORIDE 0.9% 1000ML 1,000 ML IV SCH ×2 (03:16→11:16)
[2018-03-09] MEDS: TRAMADOL HCL 50 MG TAB PO SCH ×3 (06:07→22:08)
[2018-03-09 06:24] LABS: ALANINE AMINOTRANSFERASE 219 IU/L (0-55); ALBUMIN 3.2 g/dL (3.5-5.0); ALBUMIN/GLOBULIN RATIO 0.7 (0.8-2.0); ALKALINE PHOSPHATASE 129 IU/L (40-150); ANION GAP 13.6 mmol/L (8-16); BLOOD UREA NITROGEN 7 mg/dL (7-26); BUN/CREATININE RATIO 8 (6-25); CALCIUM 9.5 mg/dL (8.4-10.2); CARBON DIOXIDE 25 mmol/L (22-29); CHLORIDE 97 mmol/L (98-107); CREATININE, SERUM 0.84 mg/dL (0.72-1.25); EST GLOMERULAR FILTRATION RATE > 60 ML/MIN (60-); GLUCOSE 110 mg/dL (74-118); POTASSIUM 3.6 mmol/L (3.5-5.1); SODIUM 132 mmol/L (136-145)
--- NOTE | 2018-03-09 06:42 | NUR ---
PT RESTED DURING THE NIGHT DENIES PAIN .CALL LIGHT WITH IN REACH .CONTINUE TO MONITOR
[2018-03-09 06:48] LABS: BILIRUBIN,DIRECT 0.7 mg/dL (0.0-0.5)
--- NOTE | 2018-03-09 07:18 | NUR ---
REPORT GIVEN TO THE ONCOMING NURSE.
--- NOTE | 2018-03-09 07:25 | NUR ---
PATIENT SITTING UP IN BED READING HIS BOOK, DENIED PAIN AT THIS TIME. BED IN LOWER POSITION, CALL LIGHT AT REACH.
[2018-03-09] MEDS: INSULIN LISPRO 100 UNIT/1 ML 3ML VIAL SQ SCH ×4 (07:30→20:57)
[2018-03-09] MEDS: DIVALPROEX SODIUM 250 MG TAB...DR PO SCH ×2 (09:32→20:15)
[2018-03-09] MEDS: PROMETHAZINE HCL 25 MG TAB PO SCH (09:32)
[2018-03-09] MEDS: METOPROLOL TARTRATE 50 MG TAB PO SCH ×2 (09:32→17:16)
[2018-03-09] MEDS: LORATADINE 10 MG TAB PO SCH (09:32)
[2018-03-09] MEDS: CLOPIDOGREL BISULFATE 75 MG TAB PO SCH (09:32)
[2018-03-09] MEDS: PRAMIPEXOLE DIHYDROCHLORIDE 0.25 MG TAB PO SCH (09:32)
--- NOTE | 2018-03-09 11:24 | NUR ---
PATIENT ASSISTED WITH BATH, LINENS CHANGED. BACK IN BED WITH CALL LIGHT AT REACH.
[2018-03-09] MEDS ORDERED: ACYCLOVIR 5 GM CREAM..G. TOP SCH (13:00)
--- NOTE | 2018-03-09 15:28 | NUR ---
PATIENT SITTING AT BED SIDE TALKING TO FAMILY MEMBER VISITING. CALL LIGHT AT REACH.
[2018-03-09] MEDS: ACYCLOVIR 15 GM OINT TP SCH ×2 (17:16→21:45)
--- NOTE | 2018-03-09 19:00 | NUR ---
Completed BS rounds with morning nurse. Pt alert to name. Sitting in recliner. Denies pain at this time. No acute distress noted.
[2018-03-09] MEDS: ENALAPRIL MALEATE 10 MG TAB PO SCH (20:15)
[2018-03-09] MEDS: VANCOMYCIN 1GM/NS 250 ML 250 ML IV SCH (20:15)
--- NOTE | 2018-03-09 20:49 | NUR ---
Removed 20g left AC IV, pt tolerated well.
[2018-03-10] VITALS (7 sets, daily range): BP systolic 127–166; BP diastolic 69–85
[2018-03-10] MEDS: CEFEPIME 1GM/NS 0.9% 50 ML 50 ML IV SCH ×2 (02:00→12:20)
[2018-03-10] MEDS: ACYCLOVIR 15 GM OINT TP SCH ×5 (05:00→21:50)
[2018-03-10] MEDS: TRAMADOL HCL 50 MG TAB PO SCH ×3 (06:31→22:10)
[2018-03-10] MEDS: INSULIN LISPRO 100 UNIT/1 ML 3ML VIAL SQ SCH ×4 (07:30→21:00)
[2018-03-10] MEDS: PRAMIPEXOLE DIHYDROCHLORIDE 0.25 MG TAB PO SCH (09:39)
[2018-03-10] MEDS: LORATADINE 10 MG TAB PO SCH (09:39)
[2018-03-10] MEDS: PROMETHAZINE HCL 25 MG TAB PO SCH (09:39)
[2018-03-10] MEDS: METOPROLOL TARTRATE 50 MG TAB PO SCH ×2 (09:39→17:40)
[2018-03-10] MEDS: CLOPIDOGREL BISULFATE 75 MG TAB PO SCH (09:39)
[2018-03-10] MEDS: DIVALPROEX SODIUM 250 MG TAB...DR PO SCH ×2 (09:39→21:49)
--- NOTE | 2018-03-10 09:40 | NUR ---
Pt received resting in bed. Alert and oriented x4 with TLC to right IJ. Oriented to staff and surroundings. Encouraged to press call san if help needed. Pt with personal insulin pump. Call san within reach. All other meds given as ordered. Will monitor
[2018-03-10] MEDS ORDERED: SODIUM CHLORIDE 0.9% 250ML 250 ML ONE (11:56)
[2018-03-10] MEDS: VANCOMYCIN 1GM/NS 250 ML 250 ML IV SCH ×2 (12:20→21:30)
--- NOTE | 2018-03-10 18:14 | NUR ---
Nutrition Screen Note RD Recommendation for Physician: -Rec adding ADA to cardiac diet as medically appropriate Plan of Care: RD following, monitoring for tolerance and adequacy Nutrition reason for involvement: LOS Primary Diagnose(s): RLE cellulitis, sepsis PMH: Diabetes mellitus type 2, obesity, hypertension, coronary artery disease, cellulitis before. Ht: 64in Wt: 183.02lb BMI: 31.4kg/m2 IBW: 130lb RD Assessment: (03/10) Chart reviewed. Labs and meds reviewed. 48yo M, who is admitted for RLE cellulitis. Visited pt in the room. Pt reports of fair appetite. RN recorded 75-100% meal intake. Pt reports of not liking hospital foods. Entered food preferences in etechies.in. No GI complains noted. LBM 03/10, normal per pt. Pt denies any chewing or swallowing difficulty. No recent weight loss reported. Will continue to monitor and follow. Current Diet: cardiac diet Malnutrition Evaluation (03/10/2018) The patient does not meet criteria for a specified degree of malnutrition at this time. Will re-evaluate at follow-up as appropriate. Diet Education Needs Assessment: Diet education not indicated. Nutrition Care Level: low Signed: Elsa Bautista, MS, RD, LD
[2018-03-10] MEDS ORDERED: VANCOMYCIN 1GM/NS 250 ML 250 ML IV SCH (19:00)
--- NOTE | 2018-03-10 19:10 | NUR ---
Completed BS rounds with morning nurse. Pt alert to name. Sitting in recliner. Denies pain at this time. No acute distress noted.
[2018-03-10] MEDS: ENALAPRIL MALEATE 10 MG TAB PO SCH (21:49)
--- NOTE | 2018-03-10 22:00 | NUR ---
Spoke with Dr. Jain regarding hepatic lab order for 03/13/18. Ordered to schedule for 03/11/18 in the am.
[2018-03-11] VITALS (7 sets, daily range): BP systolic 125–165; BP diastolic 71–88
[2018-03-11] MEDS: CEFEPIME 1GM/NS 0.9% 50 ML 50 ML IV SCH ×2 (02:25→12:04)
[2018-03-11] MEDS: ACYCLOVIR 15 GM OINT TP SCH ×5 (05:11→20:53)
[2018-03-11] MEDS: TRAMADOL HCL 50 MG TAB PO SCH ×3 (06:06→20:53)
[2018-03-11 06:51] LABS: BILIRUBIN,DIRECT 0.4 mg/dL (0.0-0.5)
[2018-03-11] MEDS: INSULIN LISPRO 100 UNIT/1 ML 3ML VIAL SQ SCH ×4 (07:30→20:50)
--- NOTE | 2018-03-11 08:58 | NUR ---
Pt received resting in bed. All meds given as ordered. Call san within reach. Will monitor
[2018-03-11] MEDS: CLOPIDOGREL BISULFATE 75 MG TAB PO SCH (09:05)
[2018-03-11] MEDS: VANCOMYCIN 1GM/NS 250 ML 250 ML IV SCH ×2 (09:05→21:57)
[2018-03-11] MEDS: METOPROLOL TARTRATE 50 MG TAB PO SCH ×2 (09:05→17:31)
[2018-03-11] MEDS: LORATADINE 10 MG TAB PO SCH (09:05)
[2018-03-11] MEDS: PRAMIPEXOLE DIHYDROCHLORIDE 0.25 MG TAB PO SCH (09:05)
[2018-03-11] MEDS: DIVALPROEX SODIUM 250 MG TAB...DR PO SCH ×2 (09:05→20:51)
[2018-03-11] MEDS: PROMETHAZINE HCL 25 MG TAB PO SCH (09:05)
--- NOTE | 2018-03-11 18:37 | NUR ---
Pt resting comfortably in bed. Meds given as ordered. Vancomycin Trough due during next shift. Will endorse to next shift
--- NOTE | 2018-03-11 19:41 | NUR ---
Report received from day shift nurse. Patient has no complaints.
[2018-03-11] MEDS: ENALAPRIL MALEATE 10 MG TAB PO SCH (20:51)
--- NOTE | 2018-03-11 21:00 | NUR ---
Received Trough result from the lab and revealed 11.5. Paged Dr. Grey no answer.
[2018-03-12] VITALS (8 sets, daily range): BP systolic 129–141; BP diastolic 78–88
[2018-03-12] MEDS: CEFEPIME 1GM/NS 0.9% 50 ML 50 ML IV SCH ×2 (00:55→12:16)
[2018-03-12 04:41] LABS: BASOPHILS # (AUTO) 0.1 (0.0-0.1); BASOPHILS % 0.8 % (0.0-1.0); EOSINOPHILS # (AUTO) 0.1 (0.0-0.4); EOSINOPHILS % 1.2 % (0.0-6.0); HEMATOCRIT 44.1 % (38.2-49.6); HEMOGLOBIN 13.9 g/dL (14.0-18.0); LYMPHOCYTES % 39.5 % (18.0-39.1); MEAN CORPUSCULAR HEMOGLOBIN 24.4 pg (28-32); MEAN CORPUSCULAR HGB CONC 31.5 g/dL (31-35); MEAN CORPUSCULAR VOLUME 77.5 fL (81-99); MONOCYTES % 13.7 % (4.4-11.3); NEUTROPHILS # (AUTO) 3.3 (2.1-6.9); NEUTROPHILS % 44.4 % (38.7-80.0); PLATELET COUNT 224 x10e3/uL (140-360); RED BLOOD COUNT 5.69 x10e6/uL (4.3-5.7); RED CELL DISTRIBUTION WIDTH 19.7 % (11.7-14.4)
[2018-03-12 05:00] LABS: ANION GAP 11.8 mmol/L (8-16); BLOOD UREA NITROGEN 12 mg/dL (7-26); BUN/CREATININE RATIO 13 (6-25); CALCIUM 9.1 mg/dL (8.4-10.2); CARBON DIOXIDE 26 mmol/L (22-29); CHLORIDE 98 mmol/L (98-107); CREATININE, SERUM 0.93 mg/dL (0.72-1.25); EST GLOMERULAR FILTRATION RATE > 60 ML/MIN (60-); GLUCOSE 119 mg/dL (74-118); POTASSIUM 3.8 mmol/L (3.5-5.1); SODIUM 132 mmol/L (136-145)
[2018-03-12] MEDS: ACYCLOVIR 15 GM OINT TP SCH ×5 (05:32→21:12)
[2018-03-12] MEDS: TRAMADOL HCL 50 MG TAB PO SCH ×4 (06:17→22:14)
[2018-03-12] MEDS: INSULIN LISPRO 100 UNIT/1 ML 3ML VIAL SQ SCH ×4 (07:30→21:00)
[2018-03-12] MEDS: VANCOMYCIN 1GM/NS 250 ML 250 ML IV SCH ×2 (08:17→21:11)
[2018-03-12] MEDS: LORATADINE 10 MG TAB PO SCH (08:18)
[2018-03-12] MEDS: DIVALPROEX SODIUM 250 MG TAB...DR PO SCH ×2 (08:18→21:11)
[2018-03-12] MEDS: METOPROLOL TARTRATE 50 MG TAB PO SCH ×2 (08:18→16:54)
--- NOTE | 2018-03-12 08:18 | NUR ---
Pt received resting in bed with family at bedside. Right IJ TLC at bedside is patent. Alert and oriented x4. All meds given as ordered. Emotional support given. Will monitor
[2018-03-12] MEDS: CLOPIDOGREL BISULFATE 75 MG TAB PO SCH (08:19)
[2018-03-12] MEDS: PRAMIPEXOLE DIHYDROCHLORIDE 0.25 MG TAB PO SCH (08:19)
[2018-03-12] MEDS: PROMETHAZINE HCL 25 MG TAB PO SCH (08:19)
[2018-03-12] MEDS ORDERED: ONDANSETRON HCL INJ 2 MG/ML VIAL IV PRN (10:45)
--- NOTE | 2018-03-12 19:20 | NUR ---
Received patient sitting in bed talking to visitor.
[2018-03-12] MEDS: ENALAPRIL MALEATE 10 MG TAB PO SCH (21:12)
[2018-03-13] VITALS (9 sets, daily range): BP systolic 124–170; BP diastolic 62–95
[2018-03-13] MEDS: CEFEPIME 1GM/NS 0.9% 50 ML 50 ML IV SCH ×2 (00:40→12:37)
[2018-03-13] MEDS: ACYCLOVIR 15 GM OINT TP SCH ×3 (05:11→12:37)
[2018-03-13 05:54] LABS: ALBUMIN 3.2 g/dL (3.5-5.0); BILIRUBIN,DIRECT 0.4 mg/dL (0.0-0.5)
[2018-03-13] MEDS: TRAMADOL HCL 50 MG TAB PO SCH ×2 (05:56→14:04)
--- NOTE | 2018-03-13 06:25 | NUR ---
Call received from Dr. Reyna new orders received.
[2018-03-13 07:06] LABS: ANION GAP 12.7 mmol/L (8-16); BLOOD UREA NITROGEN 10 mg/dL (7-26); BUN/CREATININE RATIO 11 (6-25); CARBON DIOXIDE 26 mmol/L (22-29); CHLORIDE 99 mmol/L (98-107); CREATININE, SERUM 0.93 mg/dL (0.72-1.25); EST GLOMERULAR FILTRATION RATE > 60 ML/MIN (60-); GLUCOSE 118 mg/dL (74-118); POTASSIUM 3.7 mmol/L (3.5-5.1); SODIUM 134 mmol/L (136-145)
--- NOTE | 2018-03-13 07:28 | NUR ---
report given to oncoming nurse.
[2018-03-13] MEDS: INSULIN LISPRO 100 UNIT/1 ML 3ML VIAL SQ SCH ×2 (07:30→11:30)
--- NOTE | 2018-03-13 07:35 | NUR ---
RECEIVED PATIENT RESTING IN BED. NO ACUTE DISTRESS NOTED. NO PAIN OR DISCOMFORT AT THIS TIME. CALL LIGHT WITHIN REACH. BED IN THE LOWEST POSITION.
[2018-03-13] MEDS: PROMETHAZINE HCL 25 MG TAB PO SCH (08:48)
[2018-03-13] MEDS: CLOPIDOGREL BISULFATE 75 MG TAB PO SCH (08:48)
[2018-03-13] MEDS: PRAMIPEXOLE DIHYDROCHLORIDE 0.25 MG TAB PO SCH (08:48)
[2018-03-13] MEDS: METOPROLOL TARTRATE 50 MG TAB PO SCH (08:48)
[2018-03-13] MEDS: DIVALPROEX SODIUM 250 MG TAB...DR PO SCH (08:48)
[2018-03-13] MEDS: LORATADINE 10 MG TAB PO SCH (08:48)
[2018-03-13] MEDS: VANCOMYCIN 1GM/NS 250 ML 250 ML IV SCH (08:51)
--- NOTE | 2018-03-13 13:50 | NUR ---
PATIENT HAS BEEN APPROVED TO BE TRANSFERRED TO [facility]. REPORT GIVEN TO [facility].
--- NOTE | 2018-03-13 16:14 | NUR ---
RECEIVED ORDER FROM MD TO DISCHARGE PATIENT TO [facility]. PATIENT IS IN STABLE CONDITION. DENIES PAIN OR DISCOMFORT. RIGHT IJ TRIPLE LUMEN IS PATENT. DISCHARGE PAPERWORK INCLUDING MAR, GIVEN TO EMS PERSONNEL. PATIENT WILL BE TRANSFERRED BY EMS VIA AMBULANCE.
== END 2018-03-13 16:14 | DRG 872 ==
LOC: ER 14:40 → ERHOLD 19:24 → ICU 21:35 → MED/SURG3 03-06 22:17
PROVIDERS: ADMIT Internal Medicine; ATTEND Internal Medicine
PROC: 02HV33Z Insertion of Infusion Device into Superior Vena Cava, Percutaneous Approach (ICD-10-PCS; principal; 2018-03-05)
DX: A41.9 Sepsis, unspecified organism (principal); L03.115 Cellulitis of right lower limb; I25.10 Atherosclerotic heart disease of native coronary artery without angina pectoris; E78.5 Hyperlipidemia, unspecified; E11.9 Type 2 diabetes mellitus without complications; Z79.4 Long term (current) use of insulin
CPT/HCPCS: 36415; 36600; 71045; 71046; 74177; 76770; 80048; 80053; 80076; 80202; 81001; 82150; 82248; 82550; 82553; 82570; 82805; 82947; 82948; 83605; 83690; 83735; 83935; 84100; 84156; 84295; 84300; 84484; 84520; 85025; 86039; 86255; 87040; 87086; 93306; 99284; J0692; J2405; J2543; J3370; J7030; J7050; Q9967

== ENCOUNTER → 2018-10-25 | Day surgery (SDC) | payer BC ==
--- NOTE | 2018-10-23 09:58 | Diagnostic Imaging Report ---
Chest, 2 views, 10/23/2018. History: Preop. Comparison: None available. Findings: The cardiomediastinal silhouette and pulmonary vasculature are within normal limits. The lungs are clear without evidence of consolidation or pleural effusion. There are no acute osseous or soft tissue abnormalities. Impression: No acute cardiopulmonary abnormality. Signed by: Dale Leyva on 10/23/2018 9:55 AM
[2018-10-23 10:24] LABS: BASOPHILS % 0.3 % (0.0-1.0); EOSINOPHILS # (AUTO) 0.1 (0.0-0.4); HEMATOCRIT 48.4 % (38.2-49.6); HEMOGLOBIN 16.4 g/dL (14.0-18.0); LYMPHOCYTES # (AUTO) 1.8 (1.0-3.2); LYMPHOCYTES % 19.5 % (18.0-39.1); MEAN CORPUSCULAR HEMOGLOBIN 31.2 pg (28-32); MEAN CORPUSCULAR HGB CONC 33.9 g/dL (31-35); MEAN CORPUSCULAR VOLUME 92.2 fL (81-99); MONOCYTES # (AUTO) 0.9 (0.2-0.8); NEUTROPHILS # (AUTO) 6.2 (2.1-6.9); NEUTROPHILS % 68.6 % (38.7-80.0); PLATELET COUNT 215 x10e3/uL (140-360); RED BLOOD COUNT 5.25 x10e6/uL (4.3-5.7); RED CELL DISTRIBUTION WIDTH 13.1 % (11.7-14.4)
[2018-10-23 10:37] LABS: ANION GAP 18.1 mmol/L (8-16); BLOOD UREA NITROGEN 9 mg/dL (7-26); BUN/CREATININE RATIO 8 (6-25); CALCIUM 10.2 mg/dL (8.4-10.2); CARBON DIOXIDE 27 mmol/L (22-29); CHLORIDE 96 mmol/L (98-107); CREATININE, SERUM 1.09 mg/dL (0.72-1.25); EST GLOMERULAR FILTRATION RATE > 60 ML/MIN (60-); GLUCOSE 115 mg/dL (74-118); POTASSIUM 4.1 mmol/L (3.5-5.1); SODIUM 137 mmol/L (136-145)
[2018-10-23 10:46] LABS: INR 0.88; PROTHROMBIN TIME 12.4 seconds (11.9-14.5)
[2018-10-23 10:47] LABS: PARTIAL THROMBOPLASTIN TIME 30.3 seconds (23.8-35.5)
[~2018-10-25] MED LIST changes: +ACETAMINOPHEN 1000 MG/100 ML IV ONE; +BETAMETHASONE DISODIUM PHOS 6 MG/ML VIAL ONE; +BUPIVACAINE HCL 0.5% INJ 30 ML VIAL INJ ONE; +CEFAZOLIN SOD 1 GM/NS 50ML 100 ML IV ONE; +DEXAMETHASONE SOD PHOS INJ 4 MG/ML VIAL ONE; +FENTANYL CITRATE/PF 100MCG/2 ML INJ ONE; +KETOROLAC TROMETHAMINE 30 MG/ML VIAL ONE; +LIDOCAINE HCL 1% LOCAL INJ 20 ML VIAL ONE; +LIDOCAINE HCL 2% LOCAL INJ 5 ML SDV VIAL INJ ONE; +MIDAZOLAM HCL 2 MG/2 ML VIAL ONE; +MUPIROCIN 2% OINT 22 GM TUBE ONE; +NOVOLOG100 UNIT/1 SC; +ONDANSETRON HCL INJ 2MG/ML 2ML 2 MG/ML VIAL ONE; +PROPOFOL IV EMULSION 10 MG/ML 20 ML VIAL ONE; +SEVOFLURANE INHAL SOLN 250 ML PEN BTL ONE; +ZOFRAN8 MG PO
--- OUTSIDE RECORDS SUMMARY | 2018-10-25 05:39 | XMS REPORT | Continuity of Care Document ---
Author Author [employer] Organization [employer] Address Unknown Phone Unavailable Care Team Providers Care Resource Analyst Name Role Phone [employer] Information [employer] Unavailable Unavailable Problems Problem Status Onset Date Classification Date Reported Comments Source Chest pain Active 10/20/2015 Problem 03/13/2018 [facility] Pure hypercholesterolemia Active Problem 11/16/2017 Lucinda Combs CAD in [place] artery Active Diagnosis 11/16/2017 Lucinda Combs Angina of effort Active Problem 11/16/2017 Lucinda Combs Palpitations Active Problem 11/16/2017 Mohteresa Combs Diabetes mellitus with complication Active Problem 11/16/2017 Lucinda Combs Benign hypertensive heart disease Active Problem 11/16/2017 Mohteresa Combs S/P PTCA (percutaneous transluminal coronary angioplasty) Active Problem 11/16/2017 Lucinda Combs Abnormal EKG Active Problem 11/16/2017 Lucinda Combs Hypercholesterolemia Active Problem 11/13/2014 Lucinda Combs Diabetes mellitus with complication Active Problem 11/13/2014 Lucinda Combs 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 11/13/2014 Lucinda Combs Unstable Angina Active Problem 11/13/2014 Mohteresa Combs Angina Active Problem 11/13/2014 Lucinda Combs Abnormal ECG Active Problem 11/13/2014 Lucinda Combs Benign hypertensive heart disease Active Problem 11/13/2014 Lucinda Combs CAD, [place] Coronary Artery Active Problem 11/13/2014 Mohteresa Combs S/P PTCA (percutaneous transluminal coronary angioplasty) Active Problem 11/13/2014 Lucinda Combs Chest Pain Active Problem 11/13/2014 Lucinda Combs Cellulitis of right lower extremity Active Problem 03/13/2018 [facility] Sepsis Active Problem 03/13/2018 [facility] Medications Medication Details Route Status Patient Instructions Ordering Provider Order Date Source Cephalexin 500 Mg Capsule Four Times Daily Active Conley 02/17/2018 [facility] Clindamycin Hcl 150 Mg Capsule, 300 Mg Every 8 Hours Active 02/17/2018 [facility] Sulfamethoxazole/Trimethoprim (Bactrim Ds Tablet) 1 Each Tablet, 1 Tab Oral Twice A Day Active 02/17/2018 [facility] Doxepin Hcl 25 Mg Capsule, 5 % Topical Twice A Day for Itching Of Foot Active 02/14/2018 [facility] Esomeprazole Magnesium (Nexium) 2.5 Mg Suspdr.pkt, 22.3 Mg Active 02/14/2018 [facility] Fluocinonide/Emollient (Fluocinonide-E 0.05% Cream) 15 Gm Cream..g., 0.1 % Twice A Day for Dermattis Of Feet Active 02/14/2018 [facility] Insuln Asp Prt/Insulin Aspart (Novolog Mix 70-30 Flexpen Syrn) 100 Unit/1 Ml Insuln.pen, Active 02/14/2018 [facility] Levocetirizine Dihydrochloride 5 Mg Tablet, 5 Mg Oral Daily Active 02/14/2018 [facility] Lidocaine Hcl/D7.5w/Pf (Lidocaine 5% In D7.5w Ampul) 2 Ml Ampul, 5 % Topical Twice A Day for Foot Discomfort Active 02/14/2018 [facility] Meclizine Hcl 12.5 Mg Tablet, 25 Mg Oral Daily as needed for Prn Active 02/14/2018 [facility] Sitagliptin Phosphate (Januvia) 100 Mg Tablet, 100 Mg Oral Daily Active 02/14/2018 [facility] Clonidine Hcl 0.1 Mg Tablet, 1 Tab Oral Twice A Day as needed for Elevated Blood Pressure Active 09/05/2016 [facility] Atorvastatin Calcium 10 Mg Tablet, 10 Mg Oral Today At 9:00PM Active 09/04/2016 [facility] Glimepiride 2 Mg Tablet, 4 Mg Oral Am Active 09/04/2016 [facility] Glimepiride 1 Mg Tablet, 1 Mg Oral Pm Active 09/04/2016 [facility] Jardeiance , 10 Mg Oral Daily Active 09/04/2016 [facility] Metformin Hcl (Metformin Hcl Er) 500 Mg Tab.er.24, 1000 Mg Oral Twice A Day Active 09/04/2016 [facility] Metformin Hcl (Metformin Hcl Er) 500 Mg Tab.er.24h, Active 09/04/2016 [facility] Ursodiol 300 Mg Capsule, 300 Mg Oral Daily Active 09/04/2016 [facility] Dexlansoprazole (Dexilant) 60 Mg Troy.mp, 60 Mg Oral Twice A Day Active Conley 10/24/2015 [facility] Flaxseed Oil (Flax Seed Oil) 1,000 Mg Capsule, 1000 Mg Oral Daily Active 10/24/2015 [facility] [place] , Active 10/20/2015 [facility] Lisinopril 40 Mg Tablet, Active 10/20/2015 [facility] Metformin Hcl 1,000 Mg Tablet, Active 10/20/2015 [facility] Propranolol Hcl 60 Mg Cap.sa.24h, Active 10/20/2015 [facility] Sitagliptin Phosphate (Januvia) 100 Mg Tablet, Active 10/20/2015 [facility] Sumatriptan Succinate 100 Mg Tablet, Active 10/20/2015 [facility] Zolpidem Tartrate 12.5 Mg Tab.mphase, Active 10/20/2015 [facility] Plavix 1 tablet Orally Active 75 MG Orally Once a day Lauryn Combs Lisinopril 1 tablet Orally Active 5 MG Orally Once a day Lauryn Combs Lisinopril 1 tablet Orally Active 5 MG Orally Once a day Lauryn Combs Metoprolol Tartrate 1/2 half tablet Orally Active 100 MG Orally Twice a day Lauryn Combs Lipitor 1 tablet Orally Active 10 mg Orally Once a day Lauryn Combs Metoprolol Tartrate 1 capsule by mouth Active 50 MG by mouth Twice a day Lauryn Combs Atorvastatin Calcium 1 tablet Orally Active 10 mg Orally Once a day Luischerry Combs Atorvastatin Calcium 10 Mg Tablet Today At 9:00PM Active [facility] Clopidogrel Bisulfate (Plavix) 75 Mg Tablet Daily Active [facility] Divalproex Sodium 250 Mg Tablet.dr Daily Active TAKE 1 PILL DURING THE DAY AND TAKE 2 PILLS DURING THE EVENING TIME [facility] Isosorbide Mononitrate (Isosorbide Mononitrate Er) 30 Mg Tab.er.24h Daily Active [facility] Jardeiance Daily Active [facility] Lisinopril 2.5 Mg Tablet Daily Active [facility] Metoprolol Tartrate 50 Mg Tablet Twice A Day Active [facility] Mextaxalone Three Times A Day Active [facility] Montelukast Sodium 10 Mg Tablet Daily@1700 Active [facility] Nitroglycerin (Nitrostat) 0.4 Mg Tab.subl As Needed as needed for Pain Active [facility] Pramipexole Di-Hcl (Pramipexole Dihydrochloride) 0.25 Mg Tablet Daily Active [facility] Promethazine Hcl 25 Mg Tablet Daily for Nausea Active [facility] Sitagliptin Phos/Metformin Hcl (Janumet 50-1,000 Mg Tablet) 1 Each Tablet Twice A Day Active [facility] Tramadol Hcl (Ultram) 50 Mg Tablet Every 6 Hours as needed for Pain Active [facility] Allergies, Adverse Reactions, Alerts Substance Category Reaction Severity Reaction type Status Date Reported Comments Source meperidine HCl EXTREME VOMITING Intermediate Allergy to Substance Active 03/05/2018 [facility] Immunizations No Data Provided for This Section Results Order Name Results Value Reference Range Date Interpretation Comments Source Capillary blood glucose measurement by glucometer (mass/volume) 109 70 - 120 03/13/2018 [facility] Serum or plasma sodium measurement (moles/volume) 134 136 - 145 03/13/2018 [facility] Serum or plasma potassium measurement (moles/volume) 3.7 3.5 - 5.1 03/13/2018 [facility] Serum or plasma chloride measurement (moles/volume) 99 98 - 107 03/13/2018 [facility] Serum or plasma carbon dioxide, total measurement (moles/volume) 26 22 - 29 03/13/2018 [facility] Serum or plasma anion gap 12.7 8 - 16 03/13/2018 [facility] Serum or plasma urea nitrogen measurement (mass/volume) 10 7 - 26 03/13/2018 [facility] Serum or plasma creatinine measurement (mass/volume) 0.93 0.72 - 1.25 03/13/2018 [facility] Serum or plasma urea nitrogen/creatinine mass ratio 11 6 - 25 03/13/2018 [facility] Estimated glomerular filtration rate (GFR) determination > 60 60 03/13/2018 [facility] Glucose measurement 118 74 - 118 03/13/2018 [facility] Serum or plasma calcium measurement (mass/volume) 9.0 8.4 - 10.2 03/13/2018 [facility] Serum or plasma total bilirubin measurement (mass/volume) 0.7 0.2 - 1.2 03/13/2018 [facility] Serum or plasma conjugated bilirubin measurement (mass/volume) 0.4 0.0 - 0.5 03/13/2018 [facility] Aspartate Amino Transf (AST/SGOT) 31 5 - 34 03/13/2018 [facility] Serum or plasma alanine aminotransferase measurement (enzymatic activity/volume) 83 0 - 55 03/13/2018 [facility] Serum or plasma protein measurement (mass/volume) 7.3 6.5 - 8.1 03/13/2018 [facility] Serum or plasma albumin measurement (mass/volume) 3.2 3.5 - 5.0 03/13/2018 [facility] Serum or plasma alkaline phosphatase measurement (enzymatic activity/volume) 98 40 - 150 03/13/2018 [facility] Blood leukocytes automated count (number/volume) 7.51 4.8 - 10.8 03/12/2018 [facility] Blood erythrocytes automated count (number/volume) 5.69 4.3 - 5.7 03/12/2018 [facility] Blood hemoglobin measurement (moles/volume) 13.9 14.0 - 18.0 03/12/2018 [facility] Automated blood hematocrit (volume fraction) 44.1 38.2 - 49.6 03/12/2018 [facility] Automated erythrocyte mean corpuscular volume 77.5 81 - 99 03/12/2018 [facility] Automated erythrocyte mean corpuscular hemoglobin (mass per erythrocyte) 24.4 28 - 32 03/12/2018 [facility] Automated erythrocyte mean corpuscular hemoglobin concentration measurement (mass/volume) 31.5 31 - 35 03/12/2018 [facility] RDW BldCo-Rto 19.7 11.7 - 14.4 03/12/2018 [facility] Automated blood platelet count (count/volume) 224 140 - 360 03/12/2018 [facility] Automated blood segmented neutrophil count as percentage of total leukocytes 44.4 38.7 - 80.0 03/12/2018 [facility] Automated blood lymphocyte count as percentage ot total leukocytes 39.5 18.0 - 39.1 03/12/2018 [facility] Automated blood monocyte count as percentage of total leukocytes 13.7 4.4 - 11.3 03/12/2018 [facility] Automated blood eosinophil count as percentage of total leukocytes 1.2 0.0 - 6.0 03/12/2018 [facility] Automated blood basophil count as percentage of total leukocytes 0.8 0.0 - 1.0 03/12/2018 [facility] IM GRANULOCYTES % 0.4 0.0 - 1.0 03/12/2018 [facility] Automated blood neutrophil count 3.3 2.1 - 6.9 03/12/2018 [facility] Blood lymphocytes count (number/volume) 3.0 1.0 - 3.2 03/12/2018 [facility] Blood monocytes automated count (number/volume) 1.0 0.2 - 0.8 03/12/2018 [facility] Automated blood eosinophil count 0.1 0.0 - 0.4 03/12/2018 [facility] Automated blood basophil count (count/volume) 0.1 0.0 - 0.1 03/12/2018 [facility] Absolute Immature Granulocyte (auto 0.03 0 - 0.1 03/12/2018 [facility] Serum or plasma magnesium measurement (mass/volume) 2.0 1.3 - 2.1 03/12/2018 [facility] Serum or plasma trough vancomycin level at trough (mass/volume) 11.5 5.0 - 10.0 03/11/2018 [facility] Plasma globulin measurement (mass/volume) 4.5 2.3 - 3.5 03/09/2018 [facility] Serum or plasma albumin/globulin mass ratio 0.7 0.8 - 2.0 03/09/2018 [facility] Urine protein measurement (mass/volume) 25.4 1 - 14 03/07/2018 [facility] Urine creatinine measurement (mass/volume) 105.21 63 - 166 03/07/2018 [facility] Serum or plasma hepatitis A virus IgM antibody detection by immunoassay Negative Negative 03/06/2018 [facility] Serum or plasma hepatitis B virus surface antigen detection by immunoassay Negative Negative 03/06/2018 [facility] Serum or plasma hepatitis B virus core IgM antibody detection by immunoassay Negative Negative 03/06/2018 [facility] Serum hepatitis C virus antibody detection <0.1 0.0 - 0.9 03/06/2018 [facility] Serum mitochondria M2 IgG antibody assay (units/volume) 2.2 0.0 - 20.0 03/06/2018 [facility] Serum nuclear antibody titer by immunofluorescence Negative . 03/06/2018 [facility] Serum or plasma actin IgG antibody assay (units/volume) 9 0 - 19 03/06/2018 [facility] Serum or plasma creatine kinase measurement (enzymatic activity/volume) 162 30 - 200 03/06/2018 [facility] Serum or plasma creatine kinase MB measurement (mass/volume) 0.50 0 - 5.0 03/06/2018 [facility] Troponin I measurement by highly sensitive enzyme immunoassay 0.001 0 - 0.300 03/06/2018 [facility] Lactic Acid Level 11.1 4.5 - 19.8 03/06/2018 [facility] Phosphorus measurement 2.9 2.3 - 4.7 03/06/2018 [facility] Osmolality of Serum or Plasma by calculation 260 278 - 305 03/06/2018 [facility] Arterial blood pH measurement 7.38 7.31 - 7.41 03/05/2018 [facility] pCO2 BldA 32 41 - 51 03/05/2018 [facility] pCO2 BldA 80 80 - 105 03/05/2018 [facility] Arterial blood bicarbonate measurement (moles/volume) 19 23 - 28 03/05/2018 [facility] Arterial blood base excess by calculation -6.0 -2 - 3 - 2 03/05/2018 [facility] Arterial blood oxygen saturation measurement 96.0 95 - 98 03/05/2018 [facility] FiO2 21 03/05/2018 [facility] Serum or plasma amylase measurement (enzymatic activity/volume) 113 25 - 125 03/05/2018 [facility] Serum or plasma lipase measurement (enzymatic activity/volume) 118 8 - 78 03/05/2018 [facility] Urine color determination YELLOW YELLOW 03/05/2018 [facility] Urine clarity CLEAR CLEAR 03/05/2018 [facility] Specific gravity of Urine by Test strip 1.010 1.010 - 1.025 03/05/2018 [facility] Urine pH measurement by automated test strip 6 5 - 7 03/05/2018 [facility] Urine leukocyte esterase detection by dipstick NEGATIVE NEGATIVE 03/05/2018 [facility] Urine nitrite detection NEGATIVE NEGATIVE 03/05/2018 [facility] Urine protein measurement by test strip (mass/volume) NEGATIVE NEGATIVE 03/05/2018 [facility] Urine glucose detection 3+ NEGATIVE 03/05/2018 [facility] Urine ketones detection by automated test strip TRACE NEGATIVE 03/05/2018 [facility] Urine urobilinogen measurement by test strip (mass/volume) 0.2 0.2 - 1 03/05/2018 [facility] Urine total bilirubin measurement (mass/volume) 1+ NEGATIVE 03/05/2018 [facility] Urine erythrocytes detection NEGATIVE NEGATIVE 03/05/2018 [facility] Automated urine sediment leukocyte count by microscopy (number/high power field) 0-5 0 - 5 03/05/2018 [facility] Erythrocytes detection in urine sediment by light microscopy 0-5 0 - 5 03/05/2018 [facility] Bacteria detection in urine sediment by light microscopy RARE NONE 03/05/2018 [facility] Epithelial cells detection in urine sediment by light microscopy RARE NONE 03/05/2018 [facility] Urine sodium measurement (moles/volume) 25 03/05/2018 [facility] Osmolality of Urine 735 . 03/05/2018 [facility] Differential Total Cells Counted 100 03/05/2018 [facility] Manual blood neutrophils/100 leukocytes 86 40 - 74 03/05/2018 [facility] Manual blood band neutrophils form/100 leukocytes 5 03/05/2018 [facility] Manual blood lymphocytes/100 leukocytes 5 19 - 48 03/05/2018 [facility] Manual blood monocytes/100 leukocytes 4 3.4 - 9.0 03/05/2018 [facility] Blood platelets count by estimate (number/volume) ADEQUATE 03/05/2018 [facility] Platelet morphology FEW GIANT 03/05/2018 [facility] Blood microcytes detection by light microscopy SLIGHT 03/05/2018 [facility] Blood culture NO GROWTH AFTER 5 DAYS, FINAL REPORT 03/05/2018 [facility] Capillary blood glucose measurement by glucometer (mass/volume) 258 70 - 120 02/17/2018 [facility] Serum or plasma trough vancomycin level at trough (mass/volume) 13.9 5.0 - 10.0 02/17/2018 [facility] Blood leukocytes automated count (number/volume) 7.62 4.8 - 10.8 02/16/2018 [facility] Blood erythrocytes automated count (number/volume) 5.97 4.3 - 5.7 02/16/2018 [facility] Blood hemoglobin measurement (moles/volume) 14.3 14.0 - 18.0 02/16/2018 [facility] Automated blood hematocrit (volume fraction) 45.9 38.2 - 49.6 02/16/2018 [facility] Automated erythrocyte mean corpuscular volume 76.9 81 - 99 02/16/2018 [facility] Automated erythrocyte mean corpuscular hemoglobin (mass per erythrocyte) 24.0 28 - 32 02/16/2018 [facility] Automated erythrocyte mean corpuscular hemoglobin concentration measurement (mass/volume) 31.2 31 - 35 02/16/2018 [facility] RDW BldCo-Rto 18.7 11.7 - 14.4 02/16/2018 [facility] Automated blood platelet count (count/volume) 204 140 - 360 02/16/2018 [facility] Automated blood segmented neutrophil count as percentage of total leukocytes 67.9 38.7 - 80.0 02/16/2018 [facility] Automated blood lymphocyte count as percentage ot total leukocytes 15.6 18.0 - 39.1 02/16/2018 [facility] Automated blood monocyte count as percentage of total leukocytes 12.2 4.4 - 11.3 02/16/2018 [facility] Automated blood eosinophil count as percentage of total leukocytes 3.4 0.0 - 6.0 02/16/2018 [facility] Automated blood basophil count as percentage of total leukocytes 0.5 0.0 - 1.0 02/16/2018 [facility] IM GRANULOCYTES % 0.4 0.0 - 1.0 02/16/2018 [facility] Automated blood neutrophil count 5.2 2.1 - 6.9 02/16/2018 [facility] Blood lymphocytes count (number/volume) 1.2 1.0 - 3.2 02/16/2018 [facility] Blood monocytes automated count (number/volume) 0.9 0.2 - 0.8 02/16/2018 [facility] Automated blood eosinophil count 0.3 0.0 - 0.4 02/16/2018 [facility] Automated blood basophil count (count/volume) 0.0 0.0 - 0.1 02/16/2018 [facility] Absolute Immature Granulocyte (auto 0.03 0 - 0.1 02/16/2018 [facility] Serum or plasma sodium measurement (moles/volume) 133 136 - 145 02/16/2018 [facility] Serum or plasma potassium measurement (moles/volume) 3.7 3.5 - 5.1 02/16/2018 [facility] Serum or plasma chloride measurement (moles/volume) 100 98 - 107 02/16/2018 [facility] Serum or plasma carbon dioxide, total measurement (moles/volume) 21 22 - 29 02/16/2018 [facility] Serum or plasma anion gap 15.7 8 - 16 02/16/2018 [facility] Serum or plasma urea nitrogen measurement (mass/volume) 10 7 - 26 02/16/2018 [facility] Serum or plasma creatinine measurement (mass/volume) 1.11 0.72 - 1.25 02/16/2018 [facility] Serum or plasma urea nitrogen/creatinine mass ratio 9 6 - 25 02/16/2018 [facility] Estimated glomerular filtration rate (GFR) determination > 60 60 02/16/2018 [facility] Glucose measurement 89 74 - 118 02/16/2018 [facility] Serum or plasma calcium measurement (mass/volume) 9.3 8.4 - 10.2 02/16/2018 [facility] Lactic Acid Level 29.2 4.5 - 19.8 02/14/2018 [facility] Serum or plasma total bilirubin measurement (mass/volume) 1.1 0.2 - 1.2 02/14/2018 [facility] Aspartate Amino Transf (AST/SGOT) 185 5 - 34 02/14/2018 [facility] Serum or plasma alanine aminotransferase measurement (enzymatic activity/volume) 113 0 - 55 02/14/2018 [facility] Serum or plasma protein measurement (mass/volume) 8.9 6.5 - 8.1 02/14/2018 [facility] Serum or plasma albumin measurement (mass/volume) 3.8 3.5 - 5.0 02/14/2018 [facility] Plasma globulin measurement (mass/volume) 5.1 2.3 - 3.5 02/14/2018 [facility] Serum or plasma albumin/globulin mass ratio 0.7 0.8 - 2.0 02/14/2018 [facility] Serum or plasma alkaline phosphatase measurement (enzymatic activity/volume) 70 40 - 150 02/14/2018 [facility] Serum or plasma hepatitis A virus IgM antibody detection by immunoassay Negative Negative 02/14/2018 [facility] Serum or plasma hepatitis B virus surface antigen detection by immunoassay Negative Negative 02/14/2018 [facility] Serum or plasma hepatitis B virus core IgM antibody detection by immunoassay Negative Negative 02/14/2018 [facility] Blood culture NO GROWTH AFTER 72 HOURS 02/14/2018 [facility] Pathology Reports No Data Provided for This Section Diagnostic Reports No Data Provided for This Section Consultation Notes No Data Provided for This Section Discharge Summaries No Data Provided for This Section History and Physicals No Data Provided for This Section Vital Signs No Data Provided for This Section Encounters Location Location Details Encounter Type Encounter Number Reason For Visit Attending Provider ADM Date DC Date Status Source MD FAISAL Burch Unknown [id number] 10/09/2013 10/09/2013 MD FAISAL Hensley Unknown [id number] 10/09/2013 10/09/2013 MD FAISAL Hensley Unknown [id number] 10/09/2013 10/09/2013 MD FAISAL Hensley Unknown [id number] 10/29/2013 10/29/2013 MD FAISAL Hensley Unknown [id number] 10/29/2013 10/29/2013 MD FAISAL Hensley Unknown [id number] 07/22/2014 07/22/2014 MD FAISAL Hensley Unknown [id number] 08/19/2014 08/19/2014 MD FAISAL Hensley Unknown [id number] 08/26/2014 08/26/2014 Lucinda Combs MD PA Unknown [id number] 11/12/2014 11/12/2014 Lucinda Combs Discharged Inpatient [id number] KASANDRA CONLEY MD 02/14/2018 02/17/2018 [facility] Discharged Inpatient [id number] KASANDRA CONLEY MD 03/05/2018 03/13/2018 [facility] Procedures Procedure Code Date Perfomer Comments Source Ultrasound, renal [id number] 03/06/2018 [facility] X-ray of chest, two views [id number] 03/05/2018 [facility] Computed tomography of abdomen and pelvis with contrast [id number] 03/05/2018 [facility] US Gallbladder [id number] 02/14/2018 [facility] Assessment and Plan No Data Provided for This Section Plan of Care Plan of Care Date Source Discharge Date 03/13/18 4:14pm Disposition SNF ACUTE CARE ([facility]) Prescriptions See Medication Section 03/13/2018 [facility] Discharge Date 02/17/18 2:49pm Disposition HOME, SELF-CARE Instructions/Education Provided Cellulitis Prescriptions See Medication Section Additional Instructions/Education RESUME USUAL HOME MEDICATIONS FOLLOW UP WITH PRIMARY DOCTOR 02/17/2018 [facility] Social History Social History Date Source Social History Problem Response Recorded Date/Time Onset Date Status Hx Psychiatric Problems No 09/04/2016 2:15pm Not Applicable Not Applicable Hx Eating Disorder No 09/04/2016 2:15pm Not Applicable Not Applicable Hx Substance Use Disorder No 09/04/2016 2:15pm Not Applicable Not Applicable Hx Depression No 09/04/2016 2:15pm Not Applicable Not Applicable Hx Alcohol Use No 09/04/2016 2:15pm Not Applicable Not Applicable Hx Substance Use Treatment No 09/04/2016 2:15pm Not Applicable Not Applicable Hx Physical Abuse No 09/04/2016 2:15pm Not Applicable Not Applicable 03/13/2018 [facility] Social History ElementQualifiersDate Reported Smoking . Status Never Smoker September 19, 2014 Alcohol Use No. September 19, 2014 Alcohol Screening: No. Points: 0, Interpretation: Negative September 19, 2014 Marital Status: . September 19, 2014 Do you drink alcohol? No. 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 No 03/05/18 9:47pm If yes, is advance directive on file with [facility]? No 03/05/18 9:47pm If not on file with [facility] will patient provide a copy? No 03/05/18 9:47pm Do you have a Directive to Physician? No 03/05/18 5:12pm Do you have a Medical Power of [employer]intering [employer] Supervisor? No 03/05/18 5:12pm Do you have an out of hospital Do Not Resuscitate Order? No 03/05/18 5:12pm Do you have any special needs we should be aware of? No 03/05/18 5:12pm Do you have a support person here with you today? Yes 03/05/18 5:12pm Did patient receive Notice of Privacy Practices? Yes 03/05/18 5:12pm Did patient receive patient rights and responsibilities? Yes 03/05/18 5:12pm 03/13/2018 [facility] Advance Directives Advance Directives Directive Response Recorded Date/Time Does the patient have an advance directive? No 02/14/18 7:45pm If yes, is advance directive on file with [facility]? No 02/14/18 7:45pm If not on file with [facility] will patient provide a copy? No 02/14/18 7:45pm Do you have a Directive to Physician? No 02/14/18 11:35am Do you have a Medical Power of Sintering Plant Supervisor? No 02/14/18 11:35am Do you have an out of hospital Do Not Resuscitate Order? No 02/14/18 11:35am Do you have any special needs we should be aware of? No 12/11/18 11:35am Do you have a support person here with you today? Yes 02/14/18 11:35am Did patient receive Notice of Privacy Practices? Yes 02/14/18 11:35am Did patient receive patient rights and responsibilities? Yes 02/14/18 11:35am 02/17/2018 [facility] Functional Status No Data Provided for This Section
--- OUTSIDE RECORDS SUMMARY | 2018-10-25 05:39 | XMS REPORT | Clinical Summary ---
Author Author [facility] Organization [facility] Address Unknown Phone Unavailable Care Team Providers Care Manager Sql Name Role Phone Demian James MD PCP Allergies Comments Active Allergy Reactions Severity Noted [...] as needed for nausea or vomiting. Active anastrozole (ARIMIDEX) 1 Take 0.5 mg 0 mg chemo tablet by mouth once a week. Active insulin ASPART (NovoLOG) Inject 4 0 [...] INSULIN Inject 10 0 GLARGINE,HUM.REC.ANLOG Units under (KELLI FISH U-300 the skin INSULIN SUBQ) every evening. Active metoprolol tartrate TAKE 1 180 tablet 3 (LOPRESSOR) 50 mg tablet TABLET(50 MG) 9 BY MOUTH TWICE DAILY Active lisinopril Take 1 tablet 90 tablet 3 (PRINIVIL,ZESTRIL) 5 mg (5 mg total) 9 tablet by mouth daily. Active clopidogrel (PLAVIX) 75 Take 1 tablet 90 tablet 3 mg tablet (75 mg total) 9 by mouth daily. Active atorvastatin (LIPITOR) 40 Take 1 tablet 90 tablet 3 MG tabletIndications: (40 mg total) 9 Other hyperlipidemia by mouth daily. Default OP ins 07/26/2019 Active isosorbide mononitrate Take 1 tablet 180 tablet 3 (IMDUR) 120 MG 24 hr (120 mg 9 tablet total) by mouth 2 (two) times a day. Active metoprolol tartrate TAKE 1 180 tablet 0 (LOPRESSOR) 50 mg tablet TABLET(50 MG) 9 BY MOUTH TWICE DAILY 12/23/2017 Discontinued (Stop Taking at Discharge) nitroglycerin (NITROSTAT) Place 0.4 mg 0 0.4 MG SL tablet under the tongue every 5 (five) minutes as needed for chest pain. 01/08/2018 Discontinued (Reorder) clopidogrel (PLAVIX) 75 Take 1 tablet 90 tablet 3 mg tablet (75 mg total) 7 by mouth daily. 07/05/2018 Discontinued (Reorder) lisinopril Take 1 tablet 90 tablet 0 (PRINIVIL,ZESTRIL) 5 mg (5 mg total) 7 tablet by mouth daily. 11/04/2017 Discontinued (Reorder) metoprolol tartrate Take 1 tablet 180 tablet 3 (LOPRESSOR) 50 mg tablet (50 mg total) 7 by mouth 2 (two) times a day. 07/05/2018 Discontinued (Discontinued by another clinician) testosterone cypionate Inject 140 mg 0 (DEPOTESTOTERONE into the CYPIONATE) 100 mg/mL shoulder, injection thigh, or buttocks once a week. Tuesday12/23/2017 Discontinued (Stop Taking at Discharge) isosorbide mononitrate Take 1 tablet 90 tablet 3 (IMDUR) 60 MG 24 hr (60 mg total) 8 tablet by mouth daily. 05/13/2018 Discontinued (Reorder) atorvastatin (LIPITOR) 20 TAKE 1 TABLET 90 tablet 2 MG tabletIndications: BY MOUTH 8 Other hyperlipidemia EVERY DAY 02/01/2018 Discontinued (Reorder) metoprolol tartrate TAKE 1 180 tablet 0 [...] total) by mouth daily for 30 days. 04/07/2018 Discontinued (Reorder) clopidogrel (PLAVIX) 75 TAKE 1 TABLET 90 tablet 0 mg tablet BY MOUTH 8 DAILY 05/05/2018 Discontinued (Reorder) metoprolol tartrate TAKE 1 180 tablet 0 (LOPRESSOR) 50 mg tablet TABLET(50 MG) 8 BY MOUTH TWICE DAILY 07/04/2018 Discontinued (Reorder) clopidogrel (PLAVIX) 75 TAKE 1 TABLET 90 tablet 0 mg tablet BY MOUTH 9 DAILY 07/05/2018 Discontinued (Reorder) metoprolol tartrate TAKE 1 180 tablet 0 (LOPRESSOR) 50 mg tablet TABLET(50 MG) 9 BY MOUTH TWICE DAILY 07/05/2018 Discontinued (Reorder) atorvastatin (LIPITOR) 20 TAKE 1 TABLET 90 tablet 0 MG tabletIndications: BY MOUTH 9 Other hyperlipidemia EVERY DAY 07/05/2018 Discontinued (Reorder) clopidogrel (PLAVIX) 75 TAKE 1 TABLET 90 tablet 0 mg tablet BY MOUTH 9 DAILY 07/05/2018 Discontinued isosorbide mononitrate 3 (IMDUR) 60 MG 24 hr 9 tablet 07/26/2018 Discontinued (Reorder) isosorbide mononitrate Take 1 tablet 90 tablet 3 (IMDUR) 120 MG 24 hr (120 mg 9 tablet total) by mouth daily. 07/26/2018 Discontinued (Reorder) atorvastatin (LIPITOR) 20 Take 1 tablet 90 tablet 3 MG tabletIndications: (20 mg total) 9 Other hyperlipidemia by mouth daily. Default OP ins 07/26/2018 Discontinued (Reorder) atorvastatin (LIPITOR) 40 Take 1 tablet 90 tablet 1 MG tabletIndications: (40 mg total) 9 Other hyperlipidemia by mouth daily. Default OP ins 07/26/2018 Discontinued (Reorder) isosorbide mononitrate Take 1 tablet 180 tablet 1 (IMDUR) 120 MG 24 hr (120 mg 9 tablet total) by mouth 2 (two) times a day. Active Problems Problem Noted Date Coronary artery disease 07/26/2018 Diabetes mellitus 07/26/2018 Dizziness 07/26/2018 Dyspepsia 07/26/2018 Erectile dysfunction 07/26/2018 Arthralgia of temporomandibular joint 07/26/2018 Morales's esophagus 07/26/2018 Bleeding external hemorrhoids 07/26/2018 Cellulitis of right lower extremity 07/26/2018 Central perforation of tympanic membrane 07/26/2018 Essential (primary) hypertension 07/26/2018 Eustachian tube disorder 07/26/2018 Need for influenza vaccination 07/26/2018 Migraine headache 07/26/2018 Insomnia 07/26/2018 Hypertrophic scar 07/26/2018 Precordial chest pain 12/22/2017 Chest pain 05/20/2017 Encounters Care Team Description Date Type Specialty Amanda Mendez MD Med Refill 08/10/2018 Refill Cardiology Amanda Mendez MD Other hyperlipidemia 07/26/2018 Office Visit Cardiology Amanda Mendez MD Hyperlipidemia, unspecified hyperlipidemia type; Coronary artery disease involving [place] coronary artery of [place] heart without angina pectoris; Type 2 diabetes mellitus without complication, without long-term current use of insulin (HCC) 07/26/2018 Lab Lab Darlin Chapin MA Hyperlipidemia, unspecified hyperlipidemia type (Primary Dx); Coronary artery disease involving [place] coronary artery of [place] heart without angina pectoris; Type 2 diabetes mellitus without complication, without long-term current use of insulin (HCC) 07/25/2018 Orders Only Cardiology Amanda Mendez MD Coronary artery disease involving [place] coronary artery of [place] heart without angina pectoris; Atypical chest pain 07/11/2018 Hospital Radiology Encounter Amanda Mendez MD Coronary artery disease involving [place] coronary artery of [place] heart without angina pectoris; Atypical chest pain 07/11/2018 Hospital Procedural Cardiology Encounter Amanda Mendez MD Coronary artery disease involving [place] coronary artery of [place] heart without angina pectoris (Primary Dx); Atypical chest pain; Other hyperlipidemia 07/05/2018 Office Visit Cardiology Amanda Mendez MD Med Refill 07/04/2018 Refill Cardiology Amanda Mendez MD Med Refill 07/02/2018 Refill Cardiology Amanda Mendez MD Med Refill 05/13/2018 Refill Cardiology Amanda Mendez MD Med Refill 05/05/2018 Refill Cardiology Amanda Mendez MD Med Refill 04/07/2018 Refill Cardiology Amanda Mendez MD Med Refill 02/01/2018 Refill Cardiology Amanda Mendez MD Med Refill 01/08/2018 Refill Cardiology Rehrer, DO Dina Ramos Anh Truong, MD Precordial chest pain (Primary Dx); Hypertension, unspecified type 12/22/2017 Emergency General Internal Medicine - 12/23/2017 Amanda Mendez MD Med Refill 11/04/2017 Refill Cardiology after 10/24/2017 Family History Medical History Relation Name Comments No Known Problems Father Diabetes Mother Hypertension Mother Diabetes Sister Hypertension Sister Relation Name Status Comments Father Mother Alive Sister Alive Social History Date Tobacco Use Types Packs/Day Years Used Former Smoker Cigarettes Smokeless Tobacco: Never Used Drinks/Week oz/Week Comments Alcohol Use No Sex Assigned at Date Recorded Not on file Industry Job Start Date Occupation Not on file Not on file Not on file Travel End Travel History Travel Start No recent travel history available. Last Filed Vital Signs Reading Time Taken Comments Vital Sign 138/85 07/26/2018 10:53 AM CDT Blood Pressure 76 07/26/2018 10:53 AM CDT Pulse 36.1 C (96.9 F) 12/23/2017 3:14 PM CDT Temperature 16 12/23/2017 3:14 PM CDT Respiratory Rate 96% 12/23/2017 3:14 PM CDT Oxygen Saturation - - Inhaled Oxygen Concentration 79.4 kg (175 lb) 07/26/2018 10:53 AM CDT Weight 160 cm (5' 3") 07/26/2018 10:53 AM CDT Height 31 07/26/2018 10:53 AM CDT Body Mass Index Plan of Treatment Health Maintenance Due Date Last Done Comments DIABETIC RETINAL EYE EXAM 1970 DIABETIC FOOT EXAM 02/28/1978 URINE MICROALBUMIN 02/28/1978 COLONOSCOPY SCREENING 02/28/2018 SHINGLES VACCINES (#1) 02/28/2018 INFLUENZA VACCINE 10/05/2018 12/04/2016, 01/19/2016, 01/24/2014, Additional history exists Procedures Comments Procedure Name Priority Date/Time Associated Diagnosis HEMOGLOBIN A1C STAT 07/26/2018 Hyperlipidemia, 10:15 AM CDT unspecified hyperlipidemia type Coronary artery disease involving [place] coronary artery of [place] heart without angina pectoris Type 2 diabetes mellitus without complication, without long-term current use of insulin (HCC) ESTIMATED GFR STAT 07/26/2018 10:15 AM CDT COMPREHENSIVE METABOLIC STAT 07/26/2018 Hyperlipidemia, PANEL 10:15 AM CDT unspecified hyperlipidemia type Coronary artery disease involving [place] coronary artery of [place] heart without angina pectoris Type 2 diabetes mellitus without complication, without long-term current use of insulin (HCC) LIPID PANEL STAT 07/26/2018 Hyperlipidemia, 10:15 AM CDT unspecified hyperlipidemia type Coronary artery disease involving [place] coronary artery of [place] heart without angina pectoris Type 2 diabetes mellitus without complication, without long-term current use of insulin (HCC) CT CARDIAC OVERREAD Routine 07/11/2018 Coronary artery disease 4:21 PM CDT involving port gam[place] coronary artery of [place] heart without angina pectoris Atypical chest pain CV CTA CORONARY ARTERIES Routine 07/11/2018 Coronary artery disease W CONTRAST 8:53 AM CDT involving [place] coronary artery of [place] heart without angina pectoris Atypical chest pain ESTIMATED GFR Routine 07/11/2018 8:04 AM CDT POC CREATININE Routine 07/11/2018 8:04 AM CDT ECG 12-LEAD Routine 07/05/2018 Coronary artery disease 11:11 AM CDT involving [place] coronary artery of [place] heart without angina pectoris POC GLUCOSE Routine 12/23/2017 1:15 PM CDT [...] MMODE SPECTRAL 2:50 PM CDT COLOR DOPPLER (19000) POC GLUCOSE Routine 12/22/2017 1:22 PM CDT [...] ECG 12-LEAD STAT 12/22/2017 8:55 AM CDT after 10/24/2017 Results * Estimated GFR (07/26/2018 10:15 AM CDT) Only the most recent of 4 results within the time period is included. Estimated GFR 76 mL/min/1.73 m2 [place] Comment: [facility] rpretation G1 >=90 Normal or high G2 60-89Mildly decreased [id number] Mildly to moderately decreased [id number] Moderately to severely decreased G4 15-29Severely decreased G5 <15Kidney failure The eGFR was calculated using the Chronic Kidney Disease Epidemiology Collaboration (CKD-EPI) equation. Interpretation is based on recommendations of the National Kidney Foundation-Kidney Disease Outcomes Quality Initiative (NKF-KDOQI) published in 2014. Specimen Plasma specimen Performing Organization Address City/State/Zipcode Phone Number [facility] DEPARTMENT OF [address] [place] [address] PATHOLOGY AND [facility] MEDICINE [address] * Hemoglobin A1c (07/26/2018 10:15 AM CDT) Only the most recent of 2 results within the time period is included. Hemoglobin A1C 8.5 (H) 4.0 - 5.6 % [place] Comment: [facility] HbA1c cutoffs for diagnosing HOSPITAL diabetes: 4.0% - 5.6%=normal 5.7% - 6.4%=increased risk for diabetes (prediabetes) >=6.5%=diabetes Goals for glycemic control (ADA 2016) < 7.0%Target for non adults with diabetes. More or less stringent targets may be appropriate for individual patients. <7.5% Target for Children and adolescents with type 1 diabetes. Specimen Blood Performing Organization Address City/State/Zipcode Phone Number [facility] DEPARTMENT OF [address] [place] [address] PATHOLOGY AND [facility] MEDICINE [address] * Lipid panel (07/26/2018 10:15 AM CDT) Cholesterol 149 <200 mg/dL [facility] Triglycerides 200 (H) <150 mg/dL [facility] HDL cholesterol 42 >40 mg/dL [facility] LDL cholesterol 89Comment: Result obtained by <100 mg/dL [place] direct LDL measurement [facility] Comment: [facility] Total Cholesterol HOSPITAL (mg/dL) <200 Desirable 200-239Borderline -high >=240High Triglycerides [...] specimen Performing Organization Address City/State/Zipcode Phone Number [facility] DEPARTMENT OF [address] [place] [address] PATHOLOGY AND GENOMIC MEDICINE [address] * Comprehensive metabolic panel (07/26/2018 10:15 AM CDT) Sodium 136 135 - 148 mEq/L [facility] Potassium 4.6 3.5 - 5.0 mEq/L [facility] Chloride 101 98 - 112 mEq/L [facility] CO2 23 (L) 24 - 31 mEq/L [facility] Anion gap 12@ANIO 7 - 15 mEq/L [facility] BUN 17 6 - 20 mg/dL [facility] Creatinine 1.12 0.70 - 1.20 mg/dL [facility] Glucose 137 (H) 65 - 99 mg/dL [facility] Calcium 9.7 8.3 - 10.2 mg/dL [facility] Protein 8.2 6.3 - 8.3 g/dL [place] Comment: [facility] 4.6-7.0 g/dL 1 week 4.4-7.6 g/dL 7 months-1year 5.1-7.3 g/dL 1-2 years5.6-7 .5 g/dL >3 years6.0-8 .0 g/dL 18-150 6.3-8.3 g/dL Albumin 3.8 3.5 - 5.0 g/dL [facility] A/G ratio 0.9 0.7 - 3.8 [facility] Alkaline 68 40 - 129 U/L [facility] AST 32 10 - 50 U/L [facility] ALT 37 5 - 50 U/L [facility] Total bilirubin 0.5 0.0 - 1.2 mg/dL [facility] Specimen Plasma specimen Performing Organization Address City/[facility]/Zipcode Phone Number [facility] DEPARTMENT OF [address] [place] [address] PATHOLOGY AND GENOMIC MEDICINE [id number] [place] [address] * CT Cardiac Overread (07/11/2018 4:21 PM CDT) Specimen Narrative Performed At EXAMINATION:[facility]ICAL [facility]ORY: Radiology over-read of imaging performed in the cardiology department. Only extracardiac structures are assessed.I25.10 Atherosclerotic heart disease of [place] coronary artery without angina pectoris, R07.89 Other chest pain, atypical chest pain TECHNIQUE: Please refer to cardiology note for details on the acquisition technique. COMPARISON:None. FINDINGS: Extracardiac findings: Lungs and airways: Mild atelectasis in the lung bases Pleura: No pleural effusion or pneumothorax. Mediastinum and lymph nodes: No lymphadenopathy. Extracardiac vascular: Unremarkable. Upper abdomen: Fatty infiltration of the liver Musculoskeletal: No suspicious osseous lesions. Please refer to separately dictated cardiology report for cardiovascular findings. IMPRESSION: 1. Mild atelectasis in the lung bases 2.Fatty infiltration liver Procedure Note Interface, Radiology Results Incoming - 07/11/2018 4:47 PM CDT EXAMINATION: CT CARDIAC OVERREAD CLINICAL HISTORY: Radiology over-read of imaging performed in the cardiology department. Only extracardiac structures are assessed. I25.10 Atherosclerotic heart disease of [place] coronary artery without angina pectoris, R07.89 Other chest pain, atypical chest pain TECHNIQUE: Please refer to cardiology note for details on the acquisition technique. COMPARISON: None. FINDINGS: Extracardiac findings: Lungs and airways: Mild atelectasis in the lung bases Pleura: No pleural effusion or pneumothorax. Mediastinum and lymph nodes: No lymphadenopathy. Extracardiac vascular: Unremarkable. Upper abdomen: Fatty infiltration of the liver Musculoskeletal: No suspicious osseous lesions. Please refer to separately dictated cardiology report for cardiovascular findings. IMPRESSION: 1. Mild atelectasis in the lung bases 2. Fatty infiltration liver Performing Organization Address City/State/Zipcode Phone Number [facility] [address] [place] [address] * Cv cta coronary arteries w contrast and ffr if needed (07/11/2018 8:53 AM CDT) Specimen Narrative Performed At [facility] [address] [place] [address] CTA Coronary Arteries Report Pat.Name:HANG TOM Pat.ID:[id number] .Date: 07/11/2018Refer.MD:AMANDA MENDEZ MD Exam Time: 8:29:00 AMStudy Type:CTA Coronary Arteries Height:63inBSA: 1.83 m2 DOBAge:1970,48YSex: MALE BP:145/85HR: 62 bpm Nuclear Tech:Saira Pollack RT(R)(CT) Pat. Stat.:Outpatient CPT - 4: CCTA w Thoracic Aorta (NonCongenital) [id number] Nuclear Event ID:[id number] Order ID:[id number] Reason for Study:Angina Equivalent, Chest Pain , Abnormal Nuclear History / Clinical:Diabetes, Hyperlipidemia, Hypertension Procedures:CT Prospective (intervals), CTA Coronary Arteries Race:C SUMMARY: Technique: IV contrast was administered and sequential 0.[address] cuts were obtained through the chest using the Siemens Somatom Force CT scanner. Post-processing and 3D reconstruction were done using the [employer] workstation. Interactive image viewing and volumetric display and analysis were also performed. CTA RESULTS Left Main: A normal sized 5.0 artery which arises normally from the left sinus of Valsalva and divides into the left anterior descending and circumflex coronary arteries. No significant atherosclerotic plaque is present. Left anterior descending (LAD): A normal sized 3.1mm artery which wraps around the apex and gives off two diagonal branches. No significant atherosclerotic plaque is present.There is a 30 mm long patent stent in the proximal and mid segments. The first diagonal is a 1.8 mm artery which has moderate ostial calcified and non-calcified atherosclerotic plaque present with total occlusion but retrograde filling via collaterals. The first diagonal is jailed by the stent. The second diagonal is a 1.5 mm artery which has no significant atherosclerotic plaque present. Left circumflex: A normal sized 3.0 mm non-dominant artery which arises normally from the left main and gives off five major obtuse marginal arteries before terminating in the AV groove. Mild calcified atherosclerotic plaque is present in the distal segment but without significant stenosis. The first obtuse marginal is a 1.0 mm artery which has no significant atherosclerotic plaque present. The second obtuse marginal is a 1.7 mm artery which has no significant atherosclerotic plaque present. The third obtuse marginal is a 1.4 mm artery which has no significant atherosclerotic plaque present. The fourth obtuse marginal is a 2.7 mm bifurcating artery which has no significant atherosclerotic plaque present. The fifth obtuse marginal is a 1.6 mm artery which has no significant plaque present. Right coronary artery: A normal sized 3.5 mm dominant artery which arises normally from the right sinus of Valsalva and gives off several right ventricular branches, the posterior descending artery and the posterolateral artery. Mild calcified atherosclerotic plaque is present in the proximal, mid and distal segments but without significant stenosis.. The posterior descending is a 2 mm artery which has mild calcified atherosclerotic plaque present but no significant stenosis. The posterolateral is a 2.8 mm bifurcating artery which has mild calcified atherosclerotic plaque present but no significant stenosis. Ramus:None. Stents: Patent 30 mm long stent in the proximal and mid left anterior descending coronary artery. Bypass Grafts: None. Pulmonary Arteries: Normal pulmonary artery sizes with no proximal thrombus identified. Left Atrial and Pulmonary Vein Dimensions: Left atrial size (A-P diameter) 3.2 cm. Variant PV anatomy Left superior PV12 mm. Left inferior PV10 mm. Right superior PV12 mm. Right middle PV 7 mm. Right inferior PV13 mm. There is no evidence of the left atrial appendage clot. There is a patent foramen ovale. Left Ventricular Valve Morphology/Function: Aortic valve is tri-leaflet and there is no evidence of stenosis or regurgitation. Mitral valve is normal without evidence of regurgitation. Thoracic Aortic Dimensions: No aortic aneurysm or dissection is seen. Aortic root3.6 cm. Sinotubular junction 2.7 cm. Mid ascending aorta 3.2 cm. Descending thoracic aorta 2.1 cm. Pericardium: No pericardial effusion or pericardial thickening. Non-Cardiac Findings: Subsegmental bibasilar atelectasis. CONCLUSION CT coronary angiography shows occlusion of the first diagonal artery which is jailed by a patent stent in the LAD coronary artery.The LAD, circumflex, and right coronary arteries have only mild calcified atherosclerotic plaque. Patent 30 mm long stent in the proximal and mid left anterior descending coronary artery. Variant PV anatomy. There is no evidence of the left atrial appendage clot. STUDY QUALITY The study quality is good. COMMENTS None. The above report was based on a dedicated Cardiovascular CTA Protocol and interpreted by a Hydrology Technician.Should a more comprehensive assessment of non-cardiovascular findings be desired, please consult a radiologist.These images are available in the [facility] [email or web address] PACS system. Signed 07/11/2018 05:20 PM Amanda Mendez MD Procedure Note Interface, Radiology Results In - 07/11/2018 5:21 PM CDT [facility] and Cardiac CT [address] [place] [address] CTA Coronary Arteries Report Pat.Name: HANG TOM Pat.ID: [id number] .Date: 07/11/2018 Refer.MD: AMANDA MENDEZ MD Exam Time: 8:29:00 AM Study Type:CTA Coronary Arteries Height: 63in BSA: 1.83 m2 Age: 10 1970,48Y Sex: MALE BP: 145/85 HR: 62 bpm Nuclear Tech:RT Jill(R)(CT) Pat. Stat.:Outpatient CPT - 4: CCTA w Thoracic Aorta (NonCongenital) [id number] Nuclear Event ID:[id number] Order ID: [id number] Reason for Study:Angina Equivalent, Chest Pain , Abnormal Nuclear History / Clinical:Diabetes, Hyperlipidemia, Hypertension Procedures:CT Prospective (intervals), CTA Coronary Arteries Race: C SUMMARY: Technique: IV contrast was administered and sequential 0.[address] cuts were obtained through the chest using the Siemens Somatom Force CT scanner. Post-processing and 3D reconstruction were done using the [employer] workstation. Interactive image viewing and volumetric display and analysis were also performed. CTA RESULTS Left Main: A normal sized 5.0 artery which arises normally from the left sinus of Valsalva and divides into the left anterior descending and circumflex coronary arteries. No significant atherosclerotic plaque is present. Left anterior descending (LAD): A normal sized 3.1mm artery which wraps around the apex and gives off two diagonal branches. No significant atherosclerotic plaque is present. There is a 30 mm long patent stent in the proximal and mid segments. The first diagonal is a 1.8 mm artery which has moderate ostial calcified and non-calcified atherosclerotic plaque present with total occlusion but retrograde filling via collaterals. The first diagonal is jailed by the stent. The second diagonal is a 1.5 mm artery which has no significant atherosclerotic plaque present. Left circumflex: A normal sized 3.0 mm non-dominant artery which arises normally from the left main and gives off five major obtuse marginal arteries before terminating in the AV groove. Mild calcified atherosclerotic plaque is present in the distal segment but without significant stenosis. The first obtuse marginal is a 1.0 mm artery which has no significant atherosclerotic plaque present. The second obtuse marginal is a 1.7 mm artery which has no significant atherosclerotic plaque present. The third obtuse marginal is a 1.4 mm artery which has no significant atherosclerotic plaque present. The fourth obtuse marginal is a 2.7 mm bifurcating artery which has no significant atherosclerotic plaque present. The fifth obtuse marginal is a 1.6 mm artery which has no significant plaque present. Right coronary artery: A normal sized 3.5 mm dominant artery which arises normally from the right sinus of Valsalva and gives off several right ventricular branches, the posterior descending artery and the posterolateral artery. Mild calcified atherosclerotic plaque is present in the proximal, mid and distal segments but without significant stenosis.. The posterior descending is a 2 mm artery which has mild calcified atherosclerotic plaque present but no significant stenosis. The posterolateral is a 2.8 mm bifurcating artery which has mild calcified atherosclerotic plaque present but no significant stenosis. Ramus: None. Stents: Patent 30 mm long stent in the proximal and mid left anterior descending coronary artery. Bypass Grafts: None. Pulmonary Arteries: Normal pulmonary artery sizes with no proximal thrombus identified. Left Atrial and Pulmonary Vein Dimensions: Left atrial size (A-P diameter) 3.2 cm. Variant PV anatomy Left superior PV12 mm. Left inferior PV10 mm. Right superior PV12 mm. Right middle PV 7 mm. Right inferior PV13 mm. There is no evidence of the left atrial appendage clot. There is a patent foramen ovale. Left Ventricular Valve Morphology/Function: Aortic valve is tri-leaflet and there is no evidence of stenosis or regurgitation. Mitral valve is normal without evidence of regurgitation. Thoracic Aortic Dimensions: No aortic aneurysm or dissection is seen. Aortic root 3.6 cm. Sinotubular junction 2.7 cm. Mid ascending aorta 3.2 cm. Descending thoracic aorta 2.1 cm. Pericardium: No pericardial effusion or pericardial thickening. Non-Cardiac Findings: Subsegmental bibasilar atelectasis. 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 The LAD, circumflex, and right coronary arteries have only mild calcified atherosclerotic plaque. Patent 30 mm long stent in the proximal and mid left anterior descending coronary artery. Variant PV anatomy. There is no evidence of the left atrial appendage clot. STUDY QUALITY The study quality is good. COMMENTS None. The above report was based on a dedicated Cardiovascular CTA Protocol and interpreted by a Hydrology Technician. Should a more comprehensive assessment of non-cardiovascular findings be desired, please consult a radiologist. These images are available in the [facility] [email or web address] PACS system. Signed 07/11/2018 05:20 PM Amanda Mendez MD Performing Organization Address [facility]/Zipcode Phone Number [facility] [address] [place] [address] * POC creatinine (07/11/2018 8:04 AM CDT) [facility] POC creatinine 1.3 (H) 0.7 - 1.2 mg/dl [place] Comment: [facility] Meter ID: [id number] HOSPITAL Cotton Puller: Nehemias Hayden Specimen Blood Performing Organization Address [facility]/Zipcode Phone Number [facility] DEPARTMENT OF [address] [phone] PATHOLOGY AND GENOMIC MEDICINE [place] [facility] [address] [place] [address] * ECG 12 lead (07/05/2018 11:11 AM CDT) Only the most recent of 2 results within the time period is included. Ventricular 76 [facility] MUSE rate Atrial rate 76 [facility] RI interval 156 [facility] QRSD interval 110 [facility] QT interval 376 [facility] QTC interval 423 H MUSE P axis 1 48 [facility] QRS axis 1 -60 [facility] T wave axis 35 [facility] MUSE EKG impression Normal sinus rhythm-Left [facility] MUSE anterior fascicular block-Cannot rule out Anterior infarct , age undetermined-Abnormal ECG-In automated comparison with ECG of 22-DEC-2017 08:55,-Nonspecific T wave abnormality has replaced inverted T waves in Lateral leads- Specimen Narrative Performed At Performing Organization Address City/State/Zipcode Phone Number [facility] [place] [address] [place] [address] * POC glucose (12/23/2017 1:15 PM CDT) Only the most recent of 5 results within the time period is included. Pathologist [facility] POC glucose 217 (H) 65 - 99 mg/dL [facility] DEPARTMENT Comment: OF PATHOLOGY [facility] Notified RN AND GENOMIC Meter ID: [id number] MEDICINE Cotton Puller: mau spivey Specimen Performing Organization Address City/State/Zipcode Phone Number [facility] DEPARTMENT OF [address] [place] [phone] PATHOLOGY AND GENOMIC MEDICINE * Cv ecg exercise stress (nuclear or echo) (12/23/2017 12:42 PM CDT) Pathologist [facility] Resting HR 69 H MUSE Resting BP 143 H MUSE Peak MET 1.0 H MUSE Achieved Protocol Name CELY [facility] MUSE Time in 00:01:00 [facility] MUSE Exercise Phase Max Systolic BP 145 H MUSE Max Diastolic 87 H MUSE BP Max Heart Rate 102 H MUSE Max Predicted 171 [facility] MUSE Heart Rate Target HR (220 - Age)*100% [facility] MUSE Formula Test Indication chest pain [facility] MUSE Arrhy During Ex [facility] MUSE ECG Interp H MUSE Before EX ECG Interp H MUSE During Ex Ex Summary [facility] MUSE Comment Overall HR [facility] MUSE Response to Exercise Overall BP [facility] MUSE Response To Exercise Reason for [facility] MUSE Termination Stress Test -Waveform interpreted in [facility] MUSE Impression report associated with image study. No interpretation is provided as part of this Stress ECG report.- Specimen Performing Organization Address City/State/Zipcode Phone Number [facility] [place] [address] [phone] * Myocardial perfusion (12/23/2017 12:42 PM CDT) Specimen Narrative Performed At [facility] Nuclear Cardiology and Cardiac CT [address] [place] [address] Myocardial Perfusion Imaging Report Stress ECG tracings are available in MUSE, EP[employer] and [employer] All ECG interpretations are included in this report Pat.Name:HANG TOM Pat.ID:[id number] .Date: 12/23/2017Refer.MD:CORINE GIBSON MD Exam Time: 11:50:00 AM Study Type:Myocardial Perfusion Imaging Height:63inWeight:173lb BSA: 1.82 m2 DOBAge:1970,47Y Sex: MALEBP:143/92 HR:71 bpmHCT: 47 % Nuclear Tech:Anselmo Maloney, UTILITY CLERK, ARRT, Gena Santa, ARRT, NMTCB Pat. Stat.:Inpatient Room:[address] Event ID:[id number] Order ID:[id number] Reason for Study:Eval for Ischemia, Chest pain History / Clinical:Diabetes, Hyperlipidemia, Hypertension Procedures:Low Dose Stress Only Race:C Risk Factors:Known Coronary Atherosclerosis, Diabetes, Hyperlipidemia, Hypertension, Prior [place] Clinical Symptoms:Regadenoson Physical Exam:S1, S2 Surgery: Serum [...] PM CDT Nuclear Cardiology and Cardiac CT [address] [address] Myocardial Perfusion Imaging Report Stress ECG tracings are available in [employer], [employer] and [employer] All ECG interpretations are included in this report Pat.Name: HANG TOM.ID: [id number] .Date: 12/23/2017 Refer.MD: CORINE GIBSON MD Exam Time: 11:50:00 AM Study Type:Myocardial Perfusion Imaging Height: 63in Weight: 173lb BSA: 1.82 m2 Age: 10 1970,47Y Sex: MALE BP: 143/92 HR: 71 bpm HCT: 47 % Nuclear Tech:Anselmo Maloney, UTILITY CLERK, ARRT, Gena Santa ARRT, NMTCB Pat. Stat.:Inpatient Room: [facility] Nuclear Event ID:[id number] Order ID: [id number] Reason for Study:Eval for Ischemia, Chest pain History / Clinical:Diabetes, Hyperlipidemia, Hypertension Procedures:Low Dose Stress Only Race: C Risk Factors:Known Coronary Atherosclerosis, Diabetes, Hyperlipidemia, Hypertension, Prior [place] Clinical Symptoms:Regadenoson Physical Exam:S1, S2 Surgery: Serum [...] PM Baldemar Law MD Performing Organization Address [facility] Phone Number [facility] [address] [place] [address] * Troponin (12/23/2017 4:23 AM CDT) Only the most recent of 3 results within the time period is included. Troponin <0.30 0.00 - 0.30 ng/mL [facility] DEPARTMENT Comment: OF PATHOLOGY 0.30 - 1.49 AND GENOMIC ng/mlMay MEDICINE indicate increased risk of acute coronary syndrome. >=1.5 ng/ml Consistent with acute myocardial infarction. The diagnostic value of a single normal or non-diagnostic result is questionable.Serial samples at 2-6 hour intervals are required to rule out acute myocardial injury. Specimen Plasma specimen Performing Organization Address City/[facility]/Zipcode Phone Number [facility] DEPARTMENT OF [address] [place] [address] PATHOLOGY AND GENOMIC MEDICINE * Lactic acid level (12/23/2017 4:23 AM CDT) Lactic acid 2.8 (H) 0.5 - 2.2 mmol/L [facility] DEPARTMENT OF PATHOLOGY AND GENOMIC MEDICINE Specimen Plasma specimen Performing Organization Address City/[facility] Hospital[facility] Phone Number [facility] [place] [address] PATHOLOGY AND GENOMIC MEDICINE * Valproic acid level (12/23/2017 4:23 AM CDT) [facility] Valproic acid 56.3 50.0 - 100.0 ug/mL [facility] DEPARTMENT Comment: OF PATHOLOGY Therapeutic Range: AND GENOMIC 50 - 100 ug/mL MEDICINE Specimen Plasma specimen Performing Organization Address [facility] Phone Number [facility] [place] [address] PATHOLOGY AND GENOMIC MEDICINE * Basic metabolic panel (12/23/2017 4:23 AM CDT) Only the most recent of 2 results within the time period is included. [facility] Sodium 139 135 - 148 mEq/L [facility] DEPARTMENT OF PATHOLOGY AND GENOMIC MEDICINE Potassium 4.2 3.5 - 5.0 mEq/L [facility] DEPARTMENT OF PATHOLOGY AND GENOMIC MEDICINE Chloride 101 98 - 112 mEq/L [facility] DEPARTMENT OF PATHOLOGY AND GENOMIC MEDICINE CO2 26 24 - 31 mEq/L [facility] DEPARTMENT OF PATHOLOGY AND GENOMIC MEDICINE Anion gap 12@ANIO 7 - 15 mEq/L [facility] DEPARTMENT OF PATHOLOGY AND GENOMIC MEDICINE BUN 11 6 - 20 mg/dL [facility] DEPARTMENT OF PATHOLOGY AND GENOMIC MEDICINE Creatinine 1.09 0.70 - 1.20 mg/dL [facility] DEPARTMENT OF PATHOLOGY AND GENOMIC MEDICINE Glucose 95 65 - 99 mg/dL [facility] DEPARTMENT OF PATHOLOGY AND GENOMIC MEDICINE Calcium 9.2 8.3 - 10.2 mg/dL [facility] DEPARTMENT OF PATHOLOGY AND GENOMIC MEDICINE Specimen Plasma specimen Performing Organization Address [facility] Phone Number [facility] [place] [address] PATHOLOGY AND GENOMIC MEDICINE * CT Chest Wo Contrast (12/22/2017 6:25 PM CDT) Specimen Narrative Performed At EXAMINATION: RADIANT CT CHEST [...] SUMMARY: No acute or suspicious finding identified. [facility]-[id number] Procedure Note Interface, Radiology Results Incoming - [...] SUMMARY: No acute or suspicious finding identified. [facility]-[id number] Performing Organization Address City/[facility]/Zipcode Phone Number [facility] [address] [phone] * Lactic acid level, SEPSIS - Now and repeat 2x every 3 hours (12/22/2017 2:59 PM CDT) Only the most recent of 2 results within the time period is included. Lactic acid 4.9 (HH) 0.5 - 2.2 mmol/L [facility] DEPARTMENT OF PATHOLOGY AND GENOMIC MEDICINE Specimen Blood Performing Organization Address City/[facility]/Zipcode Phone Number [facility] DEPARTMENT OF [address] [place] [address] PATHOLOGY AND GENOMIC MEDICINE * Echocardiogram complete w contrast and 3D if needed (12/22/2017 2:50 PM CDT) Specimen Narrative Performed At [facility] Echocardiography Report [address] [address], [place] [phone] Pat.Name:HANG TOM Pat.ID:[id number] St.Date: 12/22/2017Refer.MD:ILDA GIBSON MD Exam Time: 2:27:00 PMStudy Type:Routine Echo Height:63inWeight:175lb BSA: 1.83 m2 DOBAge:1970,47Y Sex: MALEBP:101/51 HR:86 bpm Sonogrphr: Chapis Shine, GABRIEL, RVT/ Lilliana Mendez (student) Pat. Stat.:Inpatient Room:[facility] Study Status:Final Echo Event ID:[id number] Order ID:[id number] Reason for Study:Hypertension - Initial eval of [...] PA systolic pressure. MEASUREMENTS: 2D Parasternal Long [place] LVOT 2 cmLA Ds3.5 cm LVIDd4.3 cmIndex2.3 cm/m Ao An2 cm LVIDs2.6 cmAo Rtd 3 cm Index1.7 cm/m LV%fs 39 % LV Qbji403.9 g(122-174) IVSd 1.2 cmLVM Index 97.7 g/m2 LVPWd1.2 cmRWT0.6 LA Sng Plane LA Area 14.5 cm2(8.8-23.4) LA Vol30.5 ml Index16.7 ml/m LA LngAx 5.8 cm DOPPLER LVOT Stroke Vol LVOT 2 cmLVOT CO5.2 l/min LVOT TVI19.6 cmLVOT CI2.8 l/m/m2 LVOT Tm297 [id number] bpm LVOT SV 61.4 ml Signed 12/22/2017 04:15 PM Anjel Portillo M.D. Procedure Note Interface, Radiology Results In - 12/22/2017 4:15 PM CDT Echocardiography Report [address] [place] [address] Pat.Name: HANG TOM Pat.ID: [id number] .Date: 12/22/2017 Refer.MD: ILDA GIBSON MD Exam Time: 2:27:00 PM Study Type:Routine Echo Height: 63in Weight: 175lb BSA: 1.83 m2 Age: 10 1970,47Y Sex: MALE BP: 101/51 HR: 86 bpm Sonogrphr: Chapis Shine RDCS, RVT/ Lilliana Mendez (student) Pat. Stat.:Inpatient Room: [facility] Study Status:Final Echo Event ID:[id number] Order ID: [id number] Reason for Study:Hypertension - Initial eval of [...] PA systolic pressure. MEASUREMENTS: 2D Parasternal [place] [employer] [place] LVOT 2 cm LA Ds 3.5 cm [...] Organization Address City/State/Zipcode Phone Number [facility] [address] [place] [address] * ECG ED Preliminary Interpretation - NOT AN ORDER (12/22/2017 10:31 AM CDT) Narrative Performed At Attila Rosales DO 12/22/20171:52 PM ECG ED Preliminary Interpretation - Not an Order Performed by: ATTILA ROSALES Authorized by: ATTILA RSOALES ECG reviewed by ED Physician in the absence of a lab analyst: yes Previous ECG: Previous ECG:Compared to current [...] 1 Vw Portable (12/22/2017 9:34 AM CDT) Specimen Narrative Performed At EXAMINATION:XR CHEST 1 VW PORTABLE [facility] CLINICAL HISTORY:Chest pain concern for ACs COMPARISON:05/20/2017. IMPRESSION: 1. LINES/TUBES: None. 2.LUNGS: Clear. 3.HEART:Heart size is normal.. 4.PLEURA: No evidence for pleural effusion or pneumothorax.. 5.OTHER: Regional osseous structures remain normal in appearance. [id number] Procedure Note Hm Interface, Radiology Results Incoming - 12/22/2017 9:41 AM CDT EXAMINATION: XR CHEST 1 VW PORTABLE CLINICAL HISTORY: Chest pain concern for ACs COMPARISON: 05/20/2017. IMPRESSION: 1. LINES/TUBES: None. 2. LUNGS: Clear. 3. HEART: Heart size is normal.. 4. PLEURA: No evidence for pleural effusion or pneumothorax.. 5. OTHER: Regional osseous structures remain normal in appearance. [id number] Performing Organization Address [facility] [place] [address] * Partial thromboplastin time, activated (12/22/2017 9:18 AM CDT) [facility] PTT 31.1 23.0 - 36.0 sec [facility] DEPARTMENT Comment: OF PATHOLOGY PTT therapeutic range for [facility] GENOMIC unfractionated heparin is MEDICINE 61.0-112.0 seconds which corresponds to Anti-Xa 0.3-0.7 U/ml. Specimen Blood Performing Organization Address [facility] [place] [address] PATHOLOGY AND GENOMIC MEDICINE * Prothrombin time with INR (12/22/2017 9:18 AM CDT) [facility] Prothrombin 12.8 12.0 - 15.0 sec [facility] DEPARTMENT time OF PATHOLOGY AND GENOMIC MEDICINE INR 1.0 [facility] DEPARTMENT Comment: OF PATHOLOGY The International Normalized AND GENOMIC Ratio (INR) is a therapeutic MEDICINE monitoring tool for patients who are stable on oral anticoagulant therapy. An INR of 2.0-3.0 is suggested for deep vein thrombosis/pulmonary embolism. Specimen Blood Performing Organization Address [facility] Phone Number [facility] [place] [address] PATHOLOGY AND GENOMIC MEDICINE * CBC with platelet and differential (12/22/2017 9:18 AM CDT) [facility] WBC 9.19 4.50 - 11.00 k/uL [facility] DEPARTMENT OF PATHOLOGY AND GENOMIC MEDICINE RBC 6.07 (H) 4.40 - 6.00 m/uL [facility] DEPARTMENT OF PATHOLOGY AND GENOMIC MEDICINE HGB 14.4 14.0 - 18.0 g/dL [facility] DEPARTMENT OF PATHOLOGY AND GENOMIC MEDICINE HCT 47.0 41.0 - 51.0 % [facility] DEPARTMENT OF PATHOLOGY AND GENOMIC MEDICINE MCV 77.4 (L) 82.0 - 100.0 fL [facility] DEPARTMENT OF PATHOLOGY AND GENOMIC MEDICINE MCH 23.7 (L) 27.0 - 34.0 pg [facility] DEPARTMENT OF PATHOLOGY AND GENOMIC MEDICINE MCHC 30.6 (L) 31.0 - 37.0 g/dL [facility] DEPARTMENT OF PATHOLOGY AND GENOMIC MEDICINE RDW - SD 48.0 37.0 - 55.0 fL [facility] DEPARTMENT OF PATHOLOGY AND GENOMIC MEDICINE MPV 10.2 8.8 - 13.2 fL [facility] DEPARTMENT OF PATHOLOGY AND GENOMIC MEDICINE Platelet count 267 150 - 400 k/uL [facility] DEPARTMENT OF PATHOLOGY AND GENOMIC MEDICINE Nucleated RBC 0.00 /100 WBC [facility] DEPARTMENT OF PATHOLOGY AND GENOMIC MEDICINE Neutrophils 66.9 39.0 - 69.0 % [facility] DEPARTMENT OF PATHOLOGY AND GENOMIC MEDICINE Lymphocytes 21.5 (L) 25.0 - 45.0 % [facility] DEPARTMENT OF PATHOLOGY AND GENOMIC MEDICINE Monocytes 9.5 0.0 - 10.0 % [facility] DEPARTMENT OF PATHOLOGY AND GENOMIC MEDICINE Eosinophils 1.2 0.0 - 5.0 % [facility] DEPARTMENT OF PATHOLOGY AND GENOMIC MEDICINE Basophils 0.5 0.0 - 1.0 % [facility] DEPARTMENT OF PATHOLOGY AND GENOMIC MEDICINE Immature 0.4Comment: "Immature 0.0 - 1.0 % [facility] DEPARTMENT granulocytes granulocytes" (promyelocytes, OF PATHOLOGY myelocytes, metamyelocytes) AND GENOMIC MEDICINE Specimen Blood Performing Organization Address [facility] [place] [address] PATHOLOGY AND GENOMIC [facility] * Phosphorus level (12/22/2017 9:18 AM CDT) Phosphorus 2.7 2.4 - 4.5 mg/dL [facility] DEPARTMENT OF PATHOLOGY AND GENOMIC MEDICINE Specimen Plasma specimen Performing Organization Address [facility] [place] [address] PATHOLOGY AND [facility] MEDICINE * B natriuretic peptide (12/22/2017 9:18 AM CDT) BNP 3 0 - 100 pg/mL [facility] DEPARTMENT OF PATHOLOGY AND GENOMIC MEDICINE Specimen Blood Performing Organization Address [facility] [place] [address] PATHOLOGY [facility] * Magnesium level (12/22/2017 9:18 AM CDT) Magnesium 1.9 1.6 - 2.6 mg/dL [facility] DEPARTMENT OF PATHOLOGY AND GENOMIC MEDICINE Specimen Plasma specimen Performing Organization Address City/[facility] Phone Number [facility] DEPARTMENT [address] [address] PATHOLOGY AND GENOMIC MEDICINE * Creatine kinase, total (CPK) (12/22/2017 9:18 AM CDT) Creatine kinase 135 39 - 308 U/L [facility] DEPARTMENT OF PATHOLOGY AND GENOMIC MEDICINE Specimen Plasma specimen Performing Organization Address City/[facility] Phone Number [facility] [place] [address] PATHOLOGY AND GENOMIC MEDICINE * Hepatic function panel (12/22/2017 9:18 AM CDT) Albumin 3.6 3.5 - 5.0 g/dL [facility] DEPARTMENT OF PATHOLOGY AND GENOMIC MEDICINE Total bilirubin 0.4 0.0 - 1.2 mg/dL [facility] DEPARTMENT OF PATHOLOGY AND GENOMIC MEDICINE Bilirubin <0.2 0.0 - 0.3 mg/dL [facility] DEPARTMENT direct OF PATHOLOGY AND GENOMIC MEDICINE Alkaline 55 40 - 129 U/L [facility] DEPARTMENT phosphatase OF PATHOLOGY AND GENOMIC MEDICINE Protein 8.1 6.3 - 8.3 g/dL [facility] DEPARTMENT Comment: OF PATHOLOGY AND GENOMIC 4.6-7.0 g/dL MEDICINE 1 week 4.4-7.6 g/dL 7 months-1year 5.1-7.3 g/dL 1-2 years5.6-7 .5 g/dL >3 years6.0-8 .0 g/dL 18-150 6.3-8.3 g/dL ALT 20 5 - 50 U/L [facility] DEPARTMENT OF PATHOLOGY AND GENOMIC MEDICINE AST 23 10 - 50 U/L [facility] DEPARTMENT OF PATHOLOGY AND GENOMIC MEDICINE Specimen Plasma specimen Performing Organization Address City/[facility] Phone Number [facility] DEPARTMENT [address] [address] PATHOLOGY AND GENOMIC MEDICINE after 10/24/2017 Insurance Type Payer Benefit Subscriber ID Effective Phone Address Plan / Dates Group PPO BCBS BCBS xxxxxxxxxxxx 2016- CHOICE Present PPO/VIOLA [employer]AN[employer] PPO Advance Directives For more information, please contact: [phone] 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
--- NOTE | 2018-10-25 09:54 | Diagnostic Imaging Report ---
Right foot, 2 views. History: Postop. Findings: Overlying casting material is present. Bone mineralization is normal. There is no evidence of acute fracture or dislocation. A pin is present traversing the fourth toe. Osteotomy of the right first metatarsal is present with small screw and pin present. Bones are in gross anatomic alignment. There are no lytic or sclerotic lesions. The joint spaces are within normal limits. IMPRESSION: Postoperative changes as noted above. Signed by: Dale Leyva on 10/25/2018 9:50 AM
[2018-10-25 10:30] VITALS: BP 111/73
--- NOTE | 2018-10-25 10:42 | Operative Report ---
DATE OF PROCEDURE: 10/25/2018 SURGEON: Brian Hamilton DPM PREOPERATIVE DIAGNOSES: 1. Painful hallux valgus deformity, right foot. 2. Painful contracted hammertoes 4th digit, right foot. 3. Painful contracted hammertoes 5th digit, right foot. 4. Painful plantar fasciitis, right foot. POSTOPERATIVE DIAGNOSES: Confirmed. OPERATIVE PROCEDURES: 1. Maximiliano bunionectomy with screw fixation, right foot. 2. Arthroplasty 4th digits with K-wire fixation of 4th digit, right foot. 3. Arthroplasty 5th digits with K-wire fixation of 4th digit, right foot. 4. Endoscopic plantar fasciotomy, right foot. 5. Intraoperative use of fluoroscopy. 6. Trigger point shot of cortisone. 7. Application of posterior splint. ANESTHESIA: General. HEMOSTASIS: Pneumatic thigh tourniquet at 350 mmHg. PROCEDURE IN DETAIL: The patient was taken into the operating room and placed on the operating table in supine position. Following induction of general anesthesia by the anesthesiologist, Webril wraps were placed on the patient's right thigh, followed by application of right thigh tourniquet. The right lower extremity was then prepped and draped in the usual aseptic manner. Following procedures were then performed: Procedure #1: Maximiliano bunionectomy with screw fixation, right foot. Attention was directed to the dorsomedial aspect of the 1st MPJ, where a 6 cm linear incision was performed. Incision was deepened down to the joint capsule, longitudinal capsulotomy was then performed exposing the dorsomedial exostosis of the 1st metatarsal head. Via the use of an oscillating saw, dorsomedial exostosis was excised from the operation site in toto. A V-osteotomy was then performed from medial to lateral. Capital fragment was then transpositioned laterally upon adequate surgical and anatomical reduction. Utilizing proper AO technique, a 2.0, 14 mm cortical screw in conjunction with a buried 0.045 K-wire was then used to achieve stability of osteotomy site. All redundant bone medially was excised via the use of an oscillating saw and rotating bur. Procedure #2 and #3: Arthroplasty of 4th and 5th digits with K-wire fixation of 4th. Attention was then directed to the dorsal aspect of the above-mentioned toes overlying the proximal interphalangeal joint, where a 3 cm linear incision was performed. Incision was deepened down to the joint capsule. Transverse capsulotomy was then performed exposing the head of the proximal phalanx. Via the use of an oscillating saw, head of the proximal phalanx, these were excised from the operation site in toto. All rough and bony edges were rasped smooth. Fourth toe was still noted to be contracted, so a 0.045 K-wire was introduced up to the metatarsophalangeal joint to achieve proper anatomical reduction procedure. Procedure #4: Endoscopic plantar fasciotomy, right foot: Attention was then directed to the medial aspect of the right heel, where a stab incision was performed 5 cm from the posterior aspect of the left heel and 2 cm from the plantar aspect of left foot. Incision was then deepened via sharp and blunt dissection. Via use of a curved hemostat, a cannula was then introduced medially through the portal and the stab incision was performed laterally and the cannula was introduced through and through. The camera was then introduced to the lateral portal and the plantar fascia was then clearly visualized and medial 1/3rd of the plantar fascia was isolated and utilizing a triangle knife the plantar fascia was cut until the dorsal muscle belly was clearly visualized via the use of a scope. All areas were then copiously flushed with sterile antibiotic solution suctioned and closure was then obtained utilizing 3-0 Vicryl, 4-0 Vicryl, and 4-0 nylon for capsule, subcutaneous tissue, and skin respectively. Procedure #5: Trigger point shot of cortisone was then given to the 1st and 4th interspace of the right foot. Then, approximately 15 mL of 0.5% plain Marcaine plus 10 mL of 1% Xylocaine plain were used to achieve local anesthesia of above-mentioned surgical area. Sterile dressing was applied. Upon release of thigh tourniquet, blood hyperemia was noted immediate to all digits of the patient's right foot. Procedure #6: Application of posterior splint. A properly placed posterior splint was then applied keeping the foot at 90 degrees with respect to the leg to try and prevent any type of postoperative complications. The patient was then transferred from the OR to recovery room with vital signs stable and neurovascular status intact. No intraoperative complications were encountered. Blood loss from the surgery was minimal. The patient to remain nonweightbearing with the crutches. Keep his foot elevated and is to apply an ice pack to the ankle joint areas. CARLIN Peoples/RIAZ /[id number]
== END | disposition home or self-care (01) ==
LOC: OR 05:31
PROVIDERS: ATTEND Podiatrist Foot Surgery
DX: M20.11 Hallux valgus (acquired), right foot (principal); M20.41 Other hammer toe(s) (acquired), right foot; M79.671 Pain in right foot; M72.2 Plantar fascial fibromatosis; E11.9 Type 2 diabetes mellitus without complications; K21.9 Gastro-esophageal reflux disease without esophagitis; G47.33 Obstructive sleep apnea (adult) (pediatric); I25.10 Atherosclerotic heart disease of native coronary artery without angina pectoris; I25.2 Old myocardial infarction; I10 Essential (primary) hypertension; E78.00 Pure hypercholesterolemia, unspecified; Z01.810 Encounter for preprocedural cardiovascular examination; Z01.812 Encounter for preprocedural laboratory examination; Z01.811 Encounter for preprocedural respiratory examination; Z88.8 Allergy status to other drugs, medicaments and biological substances; Z79.4 Long term (current) use of insulin
CPT/HCPCS: 28285; 28296; 29893; 36415 ×2; 71046; 73620; 80048; 82948; 85025; 85610; 85730; 93005; C1713 ×2; J0131; J0690; J0720; J1100; J1885; J2001 ×2; J2250; J2405; J2704; J3010

== ENCOUNTER → 2019-02-08 | Day surgery (SDC) | payer BC ==
[2019-02-05 09:26] LABS: BASOPHILS % 0.5 % (0.0-1.0); EOSINOPHILS # (AUTO) 0.1 (0.0-0.4); EOSINOPHILS % 1.5 % (0.0-6.0); HEMOGLOBIN 15.7 g/dL (14.0-18.0); LYMPHOCYTES % 23.3 % (18.0-39.1); MEAN CORPUSCULAR HEMOGLOBIN 31.2 pg (28-32); MEAN CORPUSCULAR HGB CONC 33.4 g/dL (31-35); MEAN CORPUSCULAR VOLUME 93.4 fL (81-99); MONOCYTES # (AUTO) 0.8 (0.2-0.8); NEUTROPHILS # (AUTO) 5.6 (2.1-6.9); NEUTROPHILS % 65.2 % (38.7-80.0); PLATELET COUNT 216 x10e3/uL (140-360); RED BLOOD COUNT 5.03 x10e6/uL (4.3-5.7); RED CELL DISTRIBUTION WIDTH 13.3 % (11.7-14.4)
[2019-02-05 09:50] LABS: ANION GAP 14.3 mmol/L (8-16); BLOOD UREA NITROGEN 11 mg/dL (7-26); BUN/CREATININE RATIO 9 (6-25); CALCIUM 10.1 mg/dL (8.4-10.2); CARBON DIOXIDE 26 mmol/L (22-29); CHLORIDE 97 mmol/L (98-107); CREATININE, SERUM 1.21 mg/dL (0.72-1.25); EST GLOMERULAR FILTRATION RATE > 60 ML/MIN (60-); GLUCOSE 236 mg/dL (74-118); POTASSIUM 4.3 mmol/L (3.5-5.1); SODIUM 133 mmol/L (136-145)
[~2019-02-08] MED LIST changes: +ACETAMINOPHEN 1000 MG/100 ML 100 ML IV ONE; -ACETAMINOPHEN 1000 MG/100 ML IV ONE
--- OUTSIDE RECORDS SUMMARY | 2019-02-08 05:25 | XMS REPORT | Summary of Care ---
Author Author ELIU Escoto, MARIE Organization Unknown Address Unknown Phone Unavailable Care Team Providers Care Secretary Of State Name Role Phone Jc Douglass, Alice Unavailable Unavailable SAUMYA Carson, KALI Unavailable Unavailable DAVID Carson, ADONIS Duran Unavailable PEARL Carson, REZA Unavailable Unavailable ELIU N.Shlomo, MARIE Unavailable Unavailable KELLIE P.A., RIKA Unavailable Unavailable DAVID BOWSER MS, ADONIS ALICIA Unavailable Unavailable Pearl BOWSER, Reza Unavailable Unavailable Unavailable Unavailable Functional Status Name Dates Details Functional status health issues are not documented Status: Name Dates Details Cognitive status health issues are not documented Status: Problems Name Dates Details Arthralgia of temporomandibular joint (524.62, M26.629) Status: Active Insomnia (780.52, G47.00) Status: Active Cirrhosis (571.5, K74.60) Status: Active [...] Obstructive sleep apnea (327.23, G47.33) Status: Active Sinusitis, acute maxillary (461.0, J01.00) Status: Active Neuropathy, diabetic (250.60, E11.40) Status: Active Erectile dysfunction (607.84, N52.9) Status: Active Eustachian tube disorder (381.9, H69.90) Status: Active Otalgia of left ear (388.70, H92.02) Status: Active Vasovagal episode (780.2, R55) Status: Active Abnormal auditory perception, right (388.40, H93.291) Status: Active Dizziness (780.4, R42) Status: Active Fatty liver (571.8, K76.0) Status: Active Dyspepsia (536.8, R10.13) Status: Active Hemorrhoid (455.6, K64.9) Status: Active Essential (primary) hypertension (401.9, I10) Status: Active Migraine headache (346.90, G43.909) Status: Active Allergic rhinitis (477.9, J30.9) Status: Active LAD (lymphadenopathy), inguinal (785.6, R59.0) Status: Active Edema of right ankle (719.07, M25.471) Status: Active Insulin pump in place (V45.85, Z96.41) Status: Active Diabetes mellitus type 2, uncontrolled (250.02, E11.65) Status: Active Headache (784.0, R51) Status: Active Medications Name Dates Details Atorvastatin Calcium 20 MG Oral Tablet Active Lisinopril 5 MG Oral Tablet TAKE ONE TABLET ONCE DAILY * Quantity: 90 Refills: 1 KALI KERNS M.D. * Start : 02-Oct-2013 Active Metoprolol Tartrate 100 MG Oral Tablet TAKE 1 TABLET EVERY 12 HOURS DAILY. * Refills: 0 Active Montelukast Sodium 10 MG Oral Tablet TAKE 1 TABLET BY MOUTH DAILY * Quantity: 30 Refills: 2 ADONIS HERNANDEZ M.D. * Start : 24-Apr-2018 Active Jardiance 25 MG Oral Tablet TAKE 1 TABLET BY MOUTH EVERY MORNING * Quantity: 30 Refills: 2 REZA KANG M.D. * Start : 19-Jul-2018 Active traMADol HCl - 50 MG Oral Tablet TAKE 1 TABLET EVERY 4 TO 6 HOURS NEEDED FOR PAIN. * Quantity: 30 Refills: 1 NOWAK N.PMARIE Bass * Start : 08-Oct-2015 Active Janumet 50-1000 MG Oral Tablet TAKE 1 TABLET BY MOUTH TWICE DAILY WITH MEALS * Quantity: 60 Refills: 2 REZA KANG M.D. * Start : 13-Nov-2015 Active NovoLOG FlexPen 100 UNIT/ML Subcutaneous Solution Pen-injector inject ICR 1:10 g with breakfast and lunch and 1:9 g with dinner plus CF 1:50 mg /dL MDD:30 U * Quantity: 1 Refills: 2 NOWAK N.P., MARIE * Start : 23-Feb-2016 Active 5 x 3 ML Pen BD Pen Needle Sybil U/F 32G X 4 MM use to inject 4xs daily * Quantity: 1 Refills: 2 NOWAK N.P., MARIE * Start : 23-Feb-2016 Active 200 Unit Box Clopidogrel Bisulfate 75 MG Oral Tablet TAKE 1 TABLET DAILY. * Refills: 0 Active Divalproex Sodium 250 MG Oral Tablet Delayed Release TAKE 1 TABLET 3 TIMES DAILY. * Refills: 0 Active Mirapex 0.25 MG Oral Tablet * Refills: 0 Active Isosorbide Mononitrate ER 60 MG Oral Tablet Extended Release 24 Hour * Refills: 0 Active Microlet Lancets CHECK BLOOD SUGAR FOUR times daily * Quantity: 4 Refills: 0 REZA KANG M.D. * Start : 08-Nov-2017 Active 100 Unit Box Gayatri Contour Monitor w/Device Kit USE DIRECTED BG CHECK * Quantity: 1 Refills: 0 REZA KANG M.D. * Start : 19-Aug-2017 Active Contour Next Test In Vitro Strip use to check BG 4xs daily * Quantity: 200 Refills: 2 NOWAK N.P., MARIE * Start : 19-Sep-2017 Active NovoLOG 100 UNIT/ML Subcutaneous Solution per insulin pump: basal: MN 0.25, 4AM 0.3, ICR 1:8 g, ISF 1:50>100-120 MDD:50 U * Quantity: 2 Refills: 2 REZA KANG M.D. * Start : 09-Jan-2018 Active 10 ML Vial Promethazine HCl - 25 MG Oral Tablet TAKE 1 TABLET EVERY 6 HOURS NEEDED. * Quantity: 20 Refills: 0 NOWAK N.P., MARIE Active Ipratropium [place] 0.03 % Nasal Solution USE 2 SPRAYS IN EACH NOSTRIL 3 TIMES DAILY NEEDED FOR NASAL CONGESTION * Quantity: 1 Refills: 0 RIKA RAMACHANDRAN * Start : 19-Jan-2018 Active 30 ML Bottle Ondansetron 8 MG Oral Tablet Disintegrating * Refills: 0 * Start : 30-Oct-2018 Active Toujeo Max SoloStar 300 UNIT/ML Subcutaneous Solution Pen-injector INJECT 10 UNIT BEDTIME * Quantity: 1 Refills: 0 NOWAK N.P., MARIE * Start : 30-Oct-2018 Active 2 x 3 ML Pen Allergies and Adverse Reactions Name Dates Details Bactrim TABS (Allergy) Status: Active Demerol TABS (Allergy) Status: Active Past Medical [...] Influenza on: 31-Dec-2009 Fluvirin INJ Lot #: [id number] on: 24-Jan-2014 Influenza on: 19-Jan-2016 Influenza on: 04-Dec-2016 Influenza on: 21-Nov-2017 Family History Name Dates Details Family history of Hypertension (V17.49) Comments: Family History Status: Active Name Dates Details Family history of diabetes mellitus (V18.0, Z83.3) Status: Active Family history of hypertension (V17.49, Z82.49) Status: Active Family history of hyperlipidemia (V18.19, Z83.438) Status: Active Social History Name Dates Details - Status: Name Dates Details Former smoker Vital Signs Date Test Result Details :33 Physical Findings 4 Status: Comments: PHQ-9 Adult Depression Screening :32 BP Systolic 130 mm[Hg] Status: Comments: Location: LUE; Position: Sitting BP Diastolic 97 mm[Hg] Status: Comments: Location: LUE; Position: Sitting Heart Rate 91 /min Status: :29 BP Systolic 151 mm[Hg] Status: Comments: Location: LUE; Position: Sitting BP Diastolic 99 mm[Hg] Status: Comments: Location: LUE; Position: Sitting Heart Rate 97 /min Status: Height 63 in Status: Temperature 97.7 f Status: Comments: Method: Temporal Respiration Rate 16 /min Status: Physical Findings 0 Status: Comments: Pain Scale Physical Findings 0 Status: Comments: Alcohol Screen - How many times in the past yr have you had 5 (for M) or 4 (for F) or 4 (for all > 65yrs) or more drinks in a day? Results Date Description Value Details :06 Glucose (Point of Care In Office) Glucose POC Lifescan 152 [id number] [O] Hemoglobin A1c (in office) HEMOGLOBIN A1c 8.2 :16 [QH] LIPID PANEL WITH REFLEX TO DIRECT LDL CHOLESTEROL, TOTAL 167 mg/dl (Normal) Range: <200 HDL CHOLESTEROL 50 mg/dl (Normal) Range: >40 TRIGLYCERIDES 198 mg/dl (Above high threshold) Range: <150 LDL-CHOLESTEROL 87 {MG/DL__CAL} (Normal) Comments: Reference range: <100 Desirable range <100 mg/dL for primary prevention; <70 mg/dL for patients with CHD or diabetic patients with > or=2 CHD risk factors. LDL-C is now calculated using deb Grace calculation, which is a validated novel method providing better accuracy than the Friedewald equation in the estimation of LDL-C. Ernie GODOY et al. CASSIE. 2013;310(19): 4734-7295 (http:/ /education.[employer]/faq/FIO573) CHOL/HDLC RATIO 3.3 {CALC} (Normal) Range: <5.0 NON HDL CHOLESTEROL 117 {MG/DL__CAL} (Normal) Range: <130 Comments: For patients with diabetes plus 1 major ASCVD risk factor, treating to a non-HDL-C goal of <100 mg/dL (LDL-C of <70 mg/dL) is considered a therapeutic option. :16 [QLH] MICROALBUMIN, RANDOM URINE (W/CREATININE) Comments: Reference RangeNot established CREATININE, RANDOM URINE 92 mg/dl (Normal) Range: 20-320 MICROALBUMIN 1.2 mg/dl (Normal) Comments: Reference RangeNot established MICROALBUMIN/CREATININE RATIO, RANDOM URINE 13 {MCG/MG_CRE} (Normal) Range: <30 Comments: The ADA defines abnormalities in albuminexcretion as follows: Category Result (mcg/mg creatinine) Normal <30Microalbuminuria 30-299 Clinical albuminuria > DH=567 The ADA recommends that at least two of threespecimens collected within a 3-6 month period beabnormal before considering a patient to bewithin a diagnostic category. :16 [QLH] CMP W/EGFR GLUCOSE 120 mg/dl (Above high threshold) Range: 65-99 Comments: Fasting reference interval For someone without known diabetes, a glucose valuebetween 100 and 125 mg/dL is consistent withprediabetes and should be confirmed with afollow-up test. UREA NITROGEN (BUN) 12 mg/dl (Normal) Range: 7-25 CREATININE 1.10 mg/dl (Normal) Range: 0.70-1.33 Comments: For patients >49 years of age, the reference limitfor Creatinine is approximately 13% higher for peopleidentified as -Prydeinig. eGFR NON- 78 {ML/MIN/1.7} (Normal) Range: > OR=60 eGFR 90 {ML/MIN/1.7} (Normal) Range: > OR=60 BUN/CREATININE RATIO NOT APPLICABLE {CALC} Range: 6-22 SODIUM 139 mmol/L (Normal) Range: 135-146 POTASSIUM 4.8 mmol/L (Normal) Range: 3.5-5.3 CHLORIDE 101 mmol/L (Normal) Range: 98-110 CARBON DIOXIDE 27 mmol/L (Normal) Range: 20-32 CALCIUM 10.3 mg/dl (Normal) Range: 8.6-10.3 PROTEIN, TOTAL 7.8 g/dl (Normal) Range: 6.1-8.1 ALBUMIN 4.4 g/dl (Normal) Range: 3.6-5.1 GLOBULIN 3.4 {G/DL__CALC} (Normal) Range: 1.9-3.7 ALBUMIN/GLOBULIN RATIO 1.3 {CALC} (Normal) Range: 1.0-2.5 BILIRUBIN, TOTAL 0.7 mg/dl (Normal) Range: 0.2-1.2 ALKALINE PHSPHATASE 73 u/l (Normal) Range: 40-115 AST 25 u/l (Normal) Range: 10-35 ALT 31 u/l (Normal) Range: 9-46 [id number] [FORMERLY [facility], [facility]] CBC (INCLUDES DIFF/PLT) WHITE BLOOD CELL COUNT 7.6 {Thousand/u} (Normal) Range: 3.8-10.8 RED BLOOD CELL COUNT 5.07 {Million/uL} (Normal) Range: 4.20-5.80 HEMAGLOBIN 15.6 g/dl (Normal) Range: 13.2-17.1 HEMATOCRIT 45.3 % (Normal) Range: 38.5-50.0 MCV 89.3 fL (Normal) Range: 80.0-100.0 MCH 30.8 pg (Normal) Range: 27.0-33.0 MCHC 34.4 g/dl (Normal) Range: 32.0-36.0 RDW 13.8 % (Normal) Range: 11.0-15.0 PLATELET COUNT 211 {Thousand/u} (Normal) Range: 140-400 MPV 11.8 fL (Normal) Range: 7.5-12.5 ABSOLUTE NEUTROPHILS 4628 {cells/uL} (Normal) Range: 6837-4663 ABSOLUTE LYMPHOCYTES 2143 {cells/uL} (Normal) Range: 850-3900 ABSOLUTE MONOCYTES 684 {cells/uL} (Normal) Range: 200-950 ABSOLUTE EOSINOPHILS 91 {cells/uL} (Normal) Range: 15-500 ABSOLUTE BASOPHILS 53 {cells/uL} (Normal) Range: 0-200 NEUTROPHILS 60.9 % (Normal) LYMPHOCYTES 28.2 % (Normal) MONOCYTES 9.0 % (Normal) EOSINOPHILS 1.2 % (Normal) BASOPHILS 0.7 % (Normal) [id number] [[facility]] TSH, 3RD GENERATION W/REFLEX TO FT4 TSH, 3RD GENERATION W/REFLEX TO FT4 1.14 {MIU/L} (Normal) Range: 0.40-4.50 Plan of Care Name Dates Details Planned Observations Planned Goals not documented Planned Encounters Appointment; REZA KANG M.D. On: 08-Feb-2019 10:30 Interventions Provided Medication Changes* Contour Next Test In Vitro Strip - Renew Instructions Name Dates Details Instructions not documented Encounters Appointment; REZA KANG M.D. Encounter Diagnosis: Problem not documented On: 16-Dec-2016 16:00 Appointment; ADONIS HERNANDEZ M.D. Encounter Diagnosis: Problem not documented On: 19-Feb-2017 10:15 Appointment; REZA KANG M.D. Encounter Diagnosis: Problem not documented On: 18-Mar-2017 16:00 Appointment; REZA KANG M.D. Encounter Diagnosis: Problem not documented On: 20-Jun-2017 16:00 Appointment; REZA KANG M.D. Encounter Diagnosis: Problem not documented On: 19-Sep-2017 16:00 Appointment; B[address] Encounter Diagnosis: Problem not documented On: 29-Sep-2017 15:00 Appointment; BEVERLY ALONSO RD Encounter Diagnosis: Problem not documented On: 10-Oct-2017 8:00 Appointment; REZA KANG M.D. Encounter Diagnosis: Problem not documented On: 20-Dec-2017 16:00 Appointment; RIKA HOPKINS P.A. Encounter Diagnosis: Problem not documented On: 19-Jan-2018 16:15 Appointment; MARIE NOWAK [employer] TECHNICIAN Encounter Diagnosis: Problem not documented On: 07-Feb-2018 19:00 Appointment; MARIE NOWAK [employer] EM[employer] TECHNICIAN Encounter Diagnosis: Problem not documented On: 09-Feb-2018 15:45 Appointment; MARIE NOWAK, [employer] EM[employer] TECHNICIAN Encounter Diagnosis: Problem not documented On: 13-Feb-2018 16:15 Appointment; MARIE NOWAK [employer] EM[employer] TECHNICIAN Encounter Diagnosis: Problem not documented On: 20-Feb-2018 18:45 Appointment; ADONIS HERNANDEZ M.D. Encounter Diagnosis: Problem not documented On: 04-Mar-2018 13:00 Appointment; RIKA HOPKINS P.A. Encounter Diagnosis: Problem not documented On: 29-Apr-2018 9:45 Appointment; REZA KANG M.D. Encounter Diagnosis: Problem not documented On: 31-May-2018 14:00 Appointment; MARIE NOWAK NP Encounter Diagnosis: Problem not documented On: 30-Oct-2018 18:45
--- NOTE | 2019-02-08 09:25 | Diagnostic Imaging Report ---
Left foot, 2 views Clinical indications: Status post bunion/arthrodesis Comparison: None Findings: AP and lateral views of the left foot were obtained. Overlying cast material is present. Patient is status post left first metatarsal osteotomy with pin and screw fixation. A K pin traverses the fourth phalanx. A polymerization is normal. The joint spaces are maintained. Impression: Postoperative changes as described above. Signed by: Jose Casarez MD on 02/08/2019 9:21 AM
[2019-02-08 09:59] VITALS: BP 128/82
--- NOTE | 2019-02-08 14:08 | Operative Report ---
DATE OF PROCEDURE: 02/08/2019 SURGEON: Brian Hamilton DPM PREOPERATIVE DIAGNOSES: 1. Painful hallux valgus deformity, left foot. 2. Painful contracted hammertoe, 4th digit. 3. Painful contracted hammertoe, 5th digit. 4. Plantar fasciitis, left foot. POSTOPERATIVE DIAGNOSES: Confirmed. OPERATIVE PROCEDURES: 1. Maximiliano bunionectomy with screw fixation, left. 2. Arthroplasty of 4th digit with K-wire fixation, left foot. 3. Arthroplasty of 5th digit, left foot. 4. Endoscopic plantar fasciotomy, left. 5. Intraoperative use of fluoroscopy. 6. Trigger point shot of cortisone. 7. Application of posterior splint. ANESTHESIA: General. HEMOSTASIS: Pneumatic thigh tourniquet at 350 mmHg. PROCEDURE IN DETAIL: The patient was taken into the operating room and placed on the operative table in supine position. Following induction of general anesthesia by the anesthesiologist, Webril wraps were placed on the patient's left thigh, followed by application of left thigh tourniquet. The left lower extremity was then prepped and draped in the usual aseptic manner and following procedures were then performed: Procedure #1: Maximiliano bunionectomy with screw fixation, left foot. Attention was directed to the dorsal medial aspect of the 1st MPJ, where 6 cm linear incision was performed. Incision was deepened down to the joint capsule. Longitudinal capsulotomy was then performed exposing the dorsal medial exostosis of the 1st metatarsal head. Via the use of an oscillating saw, dorsal medial exostosis was excised from the operation site in toto. A V-osteotomy was then performed from medial to lateral. Capital fragment was then transpositioned laterally upon adequate surgical and anatomic reduction. Utilizing proper AO technique, a 2.0, 16 mm cortical screw in conjunction with a buried 0.045 K-wire was used to achieve stability of osteotomy site. All redundant bone medially was excised via the use of an oscillating saw and rotating bur. Procedures 2 and 3: Arthroplasty of 4th and 5th digits with K-wire fixation of 4th. Attention was then directed to the dorsal aspect of the above-mentioned toes, where a 3 cm linear incision was performed overlying the proximal interphalangeal joint. Incision was deepened down to the joint capsule. Transverse capsulotomy was then performed exposing the head of the proximal phalanx. Via the use of an oscillating saw, head of the proximal phalanxes were excised from the operation site in toto. Fourth toe was still noted to be contracted, so a 0.045 K-wire was introduced up to the metatarsophalangeal joint to achieve proper anatomic reduction. Procedure #4: Endoscopic plantar fasciotomy, left foot. Attention was directed to the medial aspect of the left heel, where a stab incision was performed 5 cm from the posterior aspect and 2 cm from the plantar aspect of the left heel. Incision was then deepened via blunt dissection. A spatula was introduced plantar to the plantar fascia and the stab incision was then performed laterally. The cannula was introduced from medial to lateral and the camera was introduced to the lateral portal exposing the plantar fascia. The medial one-quarter to one-half of the plantar fascia was then cut via the use of a triangle knife. The plantar fascia release was felt and dorsal to the plantar fascia of the muscle belly was clearly visualized after the medial one-quarter to one-half of the plantar fascia was cut. All areas were then copiously flushed with sterile antibiotic solution and suction. Procedure #5: Intraoperative use of fluoroscopy was then used to make sure proper alignment fixation was achieved. Closure was then obtained utilizing 3-0 Vicryl, 4-0 Vicryl, and 4-0 nylon for capsule, subcutaneous tissue, and skin respectively Procedure #6: Trigger point shot of cortisone was then given to the 1st and 4th interspace of the left foot. Then, approximately 15 mL of 0.5% plain Marcaine plus 10 mL of 1% Xylocaine plain were used to achieve local anesthesia of the above-mentioned surgical area. Sterile dressing was applied. Upon release of thigh tourniquet, blood hyperemia was noted immediate to all digits of the patient's left foot. Procedure #7: Application of posterior splint. A properly placed posterior splint was then applied keeping the foot at 90 degrees with respect to the leg to try for any type of postop complications. The patient was then transferred from the OR to recovery room with vital signs stable and neurovascular status intact. No intraoperative complications were encountered. Blood loss from the surgery was minimal. The patient is to remain nonweightbearing with the aid of crutches, keep his foot elevated, and is to apply an ice pack to the ankle joint area. CARLIN Peoples/RIAZ /[id number]
== END | disposition home or self-care (01) ==
LOC: OR 05:15
PROVIDERS: ATTEND Podiatrist Foot Surgery
DX: M20.12 Hallux valgus (acquired), left foot (principal); M20.42 Other hammer toe(s) (acquired), left foot; M72.2 Plantar fascial fibromatosis; I25.10 Atherosclerotic heart disease of native coronary artery without angina pectoris; I10 Essential (primary) hypertension; E11.9 Type 2 diabetes mellitus without complications; G47.33 Obstructive sleep apnea (adult) (pediatric); I44.4 Left anterior fascicular block; Z88.6 Allergy status to analgesic agent; Z01.810 Encounter for preprocedural cardiovascular examination; Z01.812 Encounter for preprocedural laboratory examination; Z79.02 Long term (current) use of antithrombotics/antiplatelets; Z79.4 Long term (current) use of insulin; Z79.84 Long term (current) use of oral hypoglycemic drugs; Z98.61 Coronary angioplasty status
CPT/HCPCS: 28285 ×2; 28296; 29893; 36415 ×2; 73620; 80048; 82948; 85025; 93005; C1713 ×2; J0131; J0690; J0720; J1100; J1885; J2001 ×2; J2250; J2405; J2704; J3010

== ENCOUNTER 2019-10-29 07:12 | Observation (INO) | payer BC, OTHER ==
[2019-10-29] VITALS (10 sets, daily range): BP systolic 133–153; BP diastolic 84–104
[~2019-10-29] VITALS: Ht 162.6 cm; Wt 81.2 kg
[~2019-10-29 07:12] MED LIST changes: -ACETAMINOPHEN 1000 MG/100 ML 100 ML IV ONE; -BETAMETHASONE DISODIUM PHOS 6 MG/ML VIAL ONE; -BUPIVACAINE HCL 0.5% INJ 30 ML VIAL INJ ONE; -CEFAZOLIN SOD 1 GM/NS 50ML 100 ML IV ONE; -DEXAMETHASONE SOD PHOS INJ 4 MG/ML VIAL ONE; -FENTANYL CITRATE/PF 100MCG/2 ML INJ ONE; -KETOROLAC TROMETHAMINE 30 MG/ML VIAL ONE; -LIDOCAINE HCL 1% LOCAL INJ 20 ML VIAL ONE; -LIDOCAINE HCL 2% LOCAL INJ 5 ML SDV VIAL INJ ONE; -MIDAZOLAM HCL 2 MG/2 ML VIAL ONE; -MUPIROCIN 2% OINT 22 GM TUBE ONE; -ONDANSETRON HCL INJ 2MG/ML 2ML 2 MG/ML VIAL ONE; -PROPOFOL IV EMULSION 10 MG/ML 20 ML VIAL ONE; -SEVOFLURANE INHAL SOLN 250 ML PEN BTL ONE
--- NOTE | 2019-10-29 07:29 | Emergency Department Note ---
History of Present Illnes History of Present Illness Chief Complaint: Chest Pain History of Present Illness This is a 49 year old male with history of hypertension, dyslipidemia, CAD status post stent 2012 here for chest pain. Patient states that he gets chest pain pretty much daily, however this morning until it woke him up from sleep and has been constant since then. Patient states that the pain is nonexertional in nature, no vomiting, radiation to the left arm. Patient states that this pain is different because it's been persistent,. Pain does not cross the diaphragm. Cards is Dr Mack in [place] and PCP is Dr James. Arrival Mode: Car Onset (how long ago): hour(s) (5 hours ) Location: chest Quality: sharp Radiation: Reports extremity Severity: moderate (10/14) Onset quality: gradual Duration (how long): hour(s) (5) Timing of current episode: constant Progression: worsening Context: Denies recent immobilization, Denies recent travel, Denies trauma/injury Relieving factors: none Exacerbating factors: none Associated symptoms: Reports other (nausea, no vomiting ) Treatments prior to arrival: other (plavix) Past Medical/Family History Physician Review I have reviewed the patient's past medical and family history. Any updates have been documented here. 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 Social History Physically hurt or threatened: No Other Last Tetanus: NONE Review of Systems Review of Systems Constitutional: Reports no symptoms EENTM: Reports no symptoms Cardiovascular: Reports as per HPI Respiratory: Reports no symptoms Gastrointestinal: Reports no symptoms Genitourinary: Reports no symptoms Musculoskeletal: Reports no symptoms Integumentary: Reports no symptoms Neurological: Reports no symptoms Psychological: Reports no symptoms Endocrine: Reports no symptoms Hematological/Lymphatic: Reports no symptoms Physical Exam Related Data Allergies: Coded Allergies: meperidine HCl (Verified Allergy, Intermediate, EXTREME VOMITING, 10/29/19) Triage Vital Signs Vital Signs Date Time Temp Pulse Resp B/P (MAP) Pulse Ox O2 Delivery O2 Flow Rate FiO2 10/29/19 07:15 98.1 88 18 147/97 100 Room Air Physical Exam CONSTITUTIONAL Constitutional: Present well-developed, Present well-nourished HENT HENT: Present normocephalic, Present atraumatic, Present oropharynx clear/moist, Present nose normal HENT L/R: Present left ext ear normal, Present right ext ear normal EYES Eyes: Reports PERRL, Reports conjunctivae normal NECK Neck: Present ROM normal PULMONARY Pulmonary: Present effort normal, Present breath sounds normal CARDIOVASCULAR Cardiovascular: Present regular rhythm, Present heart sounds normal, Present capillary refill normal, Present normal rate GASTROINTESTINAL Abdominal: Present soft, Present nontender, Present bowel sounds normal GENITOURINARY Genitourinary: Present exam deferred SKIN Skin: Present warm, Present dry MUSCULOSKELETAL Musculoskeletal: Present ROM normal NEUROLOGICAL Neurological: Present alert, Present oriented x 3, Present no gross motor or sensory deficits PSYCHOLOGICAL Psychological: Present mood/affect normal, Present judgement normal Procedures 12 Lead ECG Interpretation ECG Interpretation : Additional Comments G interpreted by me shows normal sinus rhythm, left axis deviation, T-wave inversion in lead 3, ST elevation in leads 1 and aVL. However there are less than 1 mm. EKG changes are new when compared to February 2019. Patient does not meet STEMI criteria but will repeat EKG in 15 minutes. Clinical Decision Tools HEART Score Time taken: 08:31 HEART Score: HEART Score Response (Comments) Value History Moderately suspicious 1 EKG Non specific repolarization 1 Age 45 - 65 1 Risk factors 3 or more risk factors OR hx of CAD 2 Troponin < or = to normal limit Total 5 Assessment & Plan Medical Decision Making MDM Patient's a 49-year-old with multiple risk factors for CAD to include prior stents, dyslipidemia, hypertension here for persistent chest pain. Given EKG changes, we'll treat as unstable angina and discussed with cardiology. Reassessment Reassessment 0805 Pain improved w nitro, 3/10, persistent pain. Sarah Washington is patients cards, he states no heparin or lovenox. Understands persistent pain and worsening symptoms. Recs to be called back with trop. 0832 Pt trop neg, pt to be admit to cards primarily per Sarah Washington Assessment & Plan Final Impression: (1) Unstable angina Depart Disposition: ADMITTED Last Vital Signs Date Time Temp Pulse Resp B/P (MAP) Pulse Ox O2 Delivery O2 Flow Rate FiO2 10/29/19 07:15 98.1 88 18 147/97 100 Room Air Home Meds Reported Medications Ondansetron Hcl (ZOFRAN) 8 Mg Tablet, 1 TAB PO PRN 10/23/18 Insulin Aspart (NOVOLOG) 100 Unit/1 Ml Cartridge, UNIT SC PRN 10/23/18 Isosorbide Mononitrate (ISOSORBIDE MONONITRATE ER) 30 Mg Tab.er.24h, 120 MG PO DAILY, #30 TAB 02/14/18 Pramipexole Di-Hcl (PRAMIPEXOLE DIHYDROCHLORIDE) 0.25 Mg Tablet, 1 TAB PO HS 09/04/16 Divalproex Sodium (DIVALPROEX SODIUM) 250 Mg Tablet.dr, 250 TAB PO DAILY TAKE 1 PILL DURING THE DAY AND TAKE 2 PILLS DURING THE EVENING TIME 09/04/16 Atorvastatin Calcium (ATORVASTATIN CALCIUM) 10 Mg Tablet, 40 MG PO 2100, #30 TAB 09/04/16 Sitagliptin Phos/Metformin Hcl (JANUMET 50-1,000 MG TABLET) 1 Each Tablet, 1000 TAB PO BID 09/04/16 [Jardeiance] No Conflict Check, 25 MG PO DAILY 09/04/16 Promethazine Hcl (PROMETHAZINE HCL) 25 Mg Tablet, 25 MG PO PRN for NAUSEA, TAB 10/20/15 Tramadol Hcl (ULTRAM) 50 Mg Tablet, 50 MG PO Q6H PRN for PAIN, TAB 10/20/15 Nitroglycerin (NITROSTAT) 0.4 Mg Tab.subl, 0.4 MG SL PRN PRN for PAIN 10/20/15 Metoprolol Tartrate (METOPROLOL TARTRATE) 50 Mg Tablet, 50 MG PO BID, TAB 10/20/15 Clopidogrel Bisulfate* (PLAVIX) 75 Mg Tablet, 75 MG PO DAILY, #30 TAB 10/20/15 Lisinopril (LISINOPRIL) 2.5 Mg Tablet, 5 MG PO DAILY, #30 TAB 10/20/15 KELSY NARANJO MD Oct 29, 2019 07:29
[2019-10-29] MEDS ORDERED: LACTATED RINGER'S 1,000 ML INJ ONE (07:30)
--- OUTSIDE RECORDS SUMMARY | 2019-10-29 07:36 | XMS REPORT | Continuity of Care Document ---
Author Author [employer] Address Unknown Phone Unavailable Care Team Providers Care Health And Safety Manager Name Role Phone [employer] Unavailable Un available Problems Problem Status Onset Date Classification Date Reported Comments Source Pure hypercholesterolemia Acti ve Problem 02/2018 Mohamed O Lauryn CAD in [place] artery Active Diagnosis 11/16/2017 Mohamed O Lauryn Angina of effort Active Problem 11/16/2017 Mohamed O [place] Palpitations Active Problem 11/16/2017 Mohamed O Martinadi Diabetes mellitus with complication Active Problem 02/2018 Mohamed O Martinadi Benign hypertensive heart disease Active Problem 02/2018 Mohamed O Luis[place]i S/P PTCA (percutaneous transluminal faheem nary angioplasty) Active Prob jake 11/16/2017 Mohamed O Martinadi Abnormal EKG Active Problem 11/16/2017 Mohamed O Lauryn Diabetes mellitus with complication Active Problem 11/2014 Mohamed O Luisoudi Benign hypertensive heart disease Active Problem 11/2014 Mohamed O Luisoudi Hypercholesterolemia Active Problem 11/13/2014 Mohamed O Luisoudi Angina Active Problem 11/13/2014 Mohamed Scotty Mackdi 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 Act renard Problem 11/2014 Mohamed O [place]adi Chest Pain Active Problem 11/13/2014 Mohamed O Luisoudi S/P PTCA (percutaneous transluminal faheem nary angioplasty) Active Prob jake 11/13/2014 Mohamed O [place] Abnormal ECG Active Problem 11/13/2014 Mohamed O Martinadi Unstable Angina Active Problem 11/13/2014 Mohamed Scotty Mackdi CAD, [place] Coronary Artery Ac tive Problem 11/2014 Mohamed Scotty Mackdi Hypertension Active 07/07/2013 [facility] Diabetes Mellitus Active 07/07/2013 [facility] Abnormal Liver Function Test A ctive 07/07/2013 [facility] Cirrhosis Active 07/07/2013 [facility] Coronary Artery Disease Active 07/07/2013 [facility] Insomnia Active 07/07/2013 [facility] Headache Active 07/07/2013 [facility] Keloid Scar Active 07/07/2013 [facility] Dermatitis Active 07/07/2013 [facility] External Hemorrhoids With Bleeding Active 07/07/2013 [facility] Dyspepsia Active 07/07/2013 [facility] TMJ Pain Active 07/07/2013 [facility] Acute Otitis Externa Active 07/07/2013 [facility] 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 07/07/2013 [facility] Medications Medication Details Route Status Patient Instructions Ordering Provider Order Date Source Zolpidem Tartrate ER 12.5 MG Oral Tablet Extended Release ; Start Date: 07/06/2013 (Active) Active 07/06/2013 [facility] Ciprodex 0.3-0.1 % Otic Suspension ; Start Date: 06/23/2013; End Date: (Active) Active 06/23/2013 [facility] Lisinopril 5 MG Oral Tablet ; Start Date: 04/13/2013 (Active) Active 04/13/2013 [facility] Januvia 100 MG Oral Tablet ; S tart Date: ; End Date: (Active) Inactive [facility] MetFORMIN HCl 1000 MG Oral Tablet ; Start Date: ; End Date: 08/14/2013 (Active) Active [facility] Plavix 1 tablet Orally Active 75 MG Orally Once a day [facility] O Lauryn Lisinopril 1 tablet Orally Active 5 MG Orally Once a day [facility] O Lauryn Lisinopril 1 tablet Orally Active 5 MG Orally Once a day [facility] O Lauryn Lipitor 1 tablet Orally Active 10 mg Orally [facility] Metoprolol Tartrate 1/2 half t ablet Orally Active 100 MG Orally Twice a day [facility] Lauryn Metoprolol Tartrate 1 capsule by mouth Active 50 MG by mouth Twice a day [facility] Lauryn Atorvastatin Calcium 1 tablet Orally Active 10 mg Orally Once a day [facility] [place] Nitroglycerin 0.4 MG SUBL (Ac tive) Active [facility] MetFORMIN HCl 1000 MG Oral Tablet (Active) Active [facility] Januvia 100 MG Oral Tablet (A ctive) Active [facility] Lisinopril 5 MG Oral Tablet ( Active) Active [facility] Isosorbide Mononitrate ER 30 MG Oral Tab let Extended Release 24 Hour (Active) A ctive [facility] Plavix 75 MG Oral Tablet (Act renard) Active [facility] Metoprolol Succinate ER 100 MG Oral Tabl et Extended Release 24 Hour (Active) A ctive [facility] Atorvastatin Calcium 20 MG Oral Tablet (Active) Active [facility] Ambien CR 12.5 MG Oral Tablet Extended Release (Active) Active [facility] Pepcid 40 MG Oral Tablet (Act renard) Active [facility] CloNIDine HCl 0.2 MG Oral Tablet (Active) Active [facility] GlipiZIDE 5 MG Oral Tablet (A ctive) Active [facility] Treximet TABS (Active) Active [facility] Imitrex 50 MG Oral Tablet (Ac tive) Active [facility] [place] 5 MCG Pen 5 MCG/0.02ML Subcutaneous Solution (Active) Active [facility] Propranolol HCl 60 MG Oral Tablet (Active) Active [facility] Zolpidem Tartrate ER 12.5 MG Oral Tablet Extended Release (Active) A ctive [facility] Aspirin 81 MG Oral Tablet (Ac tive) Active [facility] Protonix 40 MG Oral Tablet Delayed Release (Active) Active [facility] Metoprolol Succinate ER 100 MG Oral Tabl et Extended Release 24 Hour (Active) A ctive [facility] Vasculera Oral Tablet (Active) Active [facility] Allergies, Adverse Reactions, Alerts Substance Category Reaction Severity Reaction type Status Date Reported Comments Source Demerol TABS drug allergy drug allergy Active [facility] Immunizations Immunization Date Given Site Status Last Updated Comments Source Influenza 12/31/2009 completed [facility] Results No Data Provided for This Section Pathology Reports No Data Provided for This [...] Provider ADM Date DC Date Status Source AUDIT [id number] 11/03/2012 11/03/2012 [facility] AUDIT [id number] 03/09/2013 03/09/2013 [facility] AUDIT [id number] 04/27/2013 04/27/2013 [facility] AUDIT [id number] 05/04/2013 05/04/2013 [facility] AUDIT [id number] 05/08/2013 05/08/2013 [facility] AUDIT [id number] 05/10/2013 05/10/2013 [facility] AUDIT [id number] 05/16/2013 05/16/2013 [facility] AUDIT [id number] 05/31/2013 05/31/2013 [facility] AUDIT [id number] 06/23/2013 06/23/2013 [facility] AUDIT [id number] 07/04/2013 07/04/2013 [facility] AUDIT [id number] 07/07/2013 07/07/2013 [facility] NPD, Provi fabrizio: [place], Status: Pen, Time: 2:45 PM [id number] 08/21/19 14 07/07/2013 [facility] Lucinda Combs MD PA Unknown [id number] 10/10/19 14 10/09/2013 Lucinda Combs MD PA Unknown [id number] 10/10/19 14 10/09/2013 MD FAISAL Hensley Unknown [id number] 10/10/19 14 10/09/2013 MD FAISAL Hensley Unknown [id number] 10/30/19 14 10/29/2013 MD FAISAL Hensley Unknown [id number] 10/30/19 14 10/29/2013 MD FAISAL Hensley Unknown [id number] 07/23/19 15 07/22/2014 MD FAISAL Hensley Unknown [id number] 08/20/19 15 08/19/2014 Lucinda Combs MD PA Unknown [id number] 08/27/19 15 08/26/2014 Lucinda Combs MD PA Unknown [id number] 11/13/19 15 11/12/2014 Lucinda Combs Procedures No Data Provided for This Section Assessment and Plan No Data Provided for This Section Plan of Care Plan of Care Date Source ENT Referral 07/07/2013 Routine 07/07/2013 [facility] Endocrinology Referral 05/16/2013 Routine 05/16/2013 [facility] Social History Social History Date Source Social History ElementQualifiersDate Rep orted Smoking . Status Never Smoker September 19, 2014 Alcohol Use No. September 19, 2014 Alcohol Screening: No. Points: 0, Interpretation: Negative September 19, 2014 Marital Status: . September 19, 2014 Do you drink alcohol? No. 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 [facility] Family History Value Date S ource Family history of Hypertension (V17.49); (Active) Family history of Coronary Artery Disease (V17.49); (Active) 07/07/2013 [facility] Family history of Hypertension (V17.49); (Active) Family history of Coronary Artery Disease (V17.49); (Active) 07/04/2013 [facility] Family history of Hypertension (V17.49); (Active) Family history of Coronary Artery Disease (V17.49); (Active) 06/23/2013 [facility] Family history of Hypertension (V17.49); (Active) Family history of Coronary Artery Disease (V17.49); (Active) 05/31/2013 [facility] Family history of Hypertension (V17.49); (Active) Family history of Coronary Artery Disease (V17.49); (Active) 05/16/2013 [facility] Family history of Hypertension (V17.49); (Active) Family history of Coronary Artery Disease (V17.49); (Active) 05/10/2013 [facility] Family history of Hypertension (V17.49); (Active) Family history of Coronary Artery Disease (V17.49); (Active) 05/08/2013 [facility] Family history of Hypertension (V17.49); (Active) Family history of Coronary Artery Disease (V17.49); (Active) 05/04/2013 [facility] Family history of Hypertension (V17.49); (Active) Family history of Coronary Artery Disease (V17.49); (Active) 04/27/2013 [facility] Family history of Hypertension (V17.49); (Active) Family history of Coronary Artery Disease (V17.49); (Active) 03/09/2013 [facility] Family history of Hypertension (V17.49); (Active) Family history of Coronary Artery Disease (V17.49); (Active) 11/03/2012 [facility] Advance Directives Order Name Results Value Date Source Advance Directives Advance Dir ectives No Advance Directives available. 07/07/2013 [facility] Advance Directives Advance Dir ectives No Advance Directives available. 07/04/2013 [facility] Advance Directives Advance Dir ectives No Advance Directives available. 06/23/2013 [facility] Advance Directives Advance Dir ectives No Advance Directives available. 05/31/2013 [facility] Advance Directives Advance Dir ectives No Advance Directives available. 05/16/2013 [facility] Advance Directives Advance Dir ectives No Advance Directives available. 05/10/2013 [facility] Advance Directives Advance Dir ectives No Advance Directives available. 05/08/2013 [facility] Advance Directives Advance Dir ectives No Advance Directives available. 05/04/2013 [facility] Advance Directives Advance Dir ectives No Advance Directives available. 04/27/2013 [facility] Advance Directives Advance Dir ectives No Advance Directives available. 03/09/2013 [facility] Advance Directives Advance Dir ectives No Advance Directives available. 11/03/2012 [facility] Functional Status No Data Provided for This Section
--- OUTSIDE RECORDS SUMMARY | 2019-10-29 07:36 | XMS REPORT | Clinical Summary ---
Author Author [facility] Organization [facility] Address Unknown Phone Unavailable Care Team Providers Care Shipping Clerk Name Role Phone Demian James MD PCP Allergies Comments Active Allergy Reactions Severity Noted Date Nausea, and vomitting Meperidine GI 09/13/2016 Intolerance Medications End Date Status Medication Sig Dispensed Refills Start Date Active pramipexole (MIRAPEX) Take 0.25 mg 4 09/05/19 1 0.25 MG tablet by mouth 7 nightly. [...] as needed for nausea or vomiting. Active insulin ASPART (NovoLOG) Inject 4 0 100 unit/mL injection Units under the skin daily before breakfast. Active insulin ASPART (NovoLOG) Inject 54 0 100 unit/mL injection Units under the skin daily before lunch. Active insulin ASPART (NovoLOG) Inject 6 0 100 unit/mL injection Units under the skin daily before dinner. Active divalproex (DEPAKOTE) 250 Take 250 mg 0 MG EC tablet by mouth every morning. Active divalproex (DEPAKOTE) 250 Take 500 mg 0 MG EC tablet by mouth nightly. Active metoprolol tartrate TAKE 1 180 tablet 3 (LOPRESSOR) 50 mg tablet TABLET(50 MG) 9 BY MOUTH TWICE DAILY Active clopidogrel (PLAVIX) 75 Take 1 tablet 90 tablet 3 mg tablet (75 mg total) 9 by mouth daily. Active atorvastatin (LIPITOR) 40 Take 1 tablet 90 tablet 3 MG tabletIndications: (40 mg total) 9 Other hyperlipidemia by mouth daily. Default OP ins Active metoprolol tartrate TAKE 1 180 tablet 0 (LOPRESSOR) 50 mg tablet TABLET(50 MG) 9 BY MOUTH TWICE DAILY Active lisinopriL (PRINIVIL) 10 Take 1 tablet 90 tablet 3 mg tablet (10 mg total) 0 by mouth daily. 06/12/2020 Active ezetimibe (ZETIA) 10 mg Take 1 tablet 90 tablet 3 tablet (10 mg total) 0 by mouth daily. 06/13/2019 Discontinued (Med List Clean up) montelukast (SINGULAIR) Take 10 mg by 0 10 mg tablet mouth 7 nightly. 06/13/2019 Discontinued (Med List Clean up) anastrozole (ARIMIDEX) 1 Take 0.5 mg 0 mg chemo tablet by mouth once a week. 06/13/2019 Discontinued (Med List Clean up) empagliflozin (JARDIANCE) Take 25 mg by 0 25 mg tablet mouth daily. 06/13/2019 Discontinued (Med List Clean up) INSULIN Inject 10 0 GLARGINE,HUM.REC.ANLOG Units under (KELLI FISH U-300 the skin INSULIN SUBQ) every evening. 06/13/2019 Discontinued lisinopril Take 1 tablet 90 tablet 3 (PRINIVIL,ZESTRIL) 5 mg (5 mg total) 9 tablet by mouth daily. 07/26/2019 isosorbide mononitrate Take 1 tablet 180 tablet 3 0 (IMDUR) 120 MG 24 hr (120 mg 9 tablet total) by mouth 2 (two) times a day. 11/08/2018 Discontinued (Reorder) metoprolol tartrate TAKE 1 180 tablet 0 (LOPRESSOR) 50 mg tablet TABLET(50 MG) 9 BY MOUTH TWICE DAILY Active Problems Problem Noted Date Coronary artery [...] Encounters Care Team Description Date Type Specialty Luis Spangler RN follow up chest pain 06/28/2019 Telephone Cardiology Wilman Mendez MD Coronary artery disease involving manzanita coronary artery of manzanita heart without angina pectoris 06/22/2019 Hospital Procedural Cardiolo gy Encounter 06/22/2019 Travel Luis Spangler RN Chest Pain 06/21/2019 Telephone Cardiology 06/18/2019 Travel Wilman Mendez MD Coronary artery disease involving manzanita coronary artery of manzanita heart without angina pectoris 06/14/2019 Lab Procedural Cardiolo gy Wilman Mendez MD 06/14/2019 Lab Lab 06/14/2019 Travel Wilman Mendez MD Coronary artery disease involving manzanita coronary artery of manzanita heart without angina pectoris (Primary Dx) 06/13/2019 Telemedicine Cardiology 06/11/2019 Travel Wilman Mendez MD Med Refill 11/08/2018 Refill Cardiology after 10/28/2018 Family History Medical History Relation Name Comments [...] Signs Reading Time Taken Comments Vital Sign 157/86 06/22/2019 8:00 AM CDT Blood Pressure 71 06/22/2019 8:00 AM CDT Pulse - - Temperature 19 06/22/2019 8:00 AM CDT Respiratory Rate 100% 06/22/2019 8:00 AM CDT Oxygen Saturation - - Inhaled Oxygen Concentration 81.6 kg (180 lb) 06/22/2019 8:00 AM CDT Weight 160 cm (5' 3") 06/22/2019 8:00 AM CDT Height 31.89 06/22/2019 8:00 AM CDT Body Mass Index Plan of Treatment Health Maintenance Due Date Last Done Comments DIABETIC RETINAL EYE EXAM 1968 DIABETIC FOOT EXAM 02/28/1978 URINE MICROALBUMIN 02/28/1978 COLONOSCOPY SCREENING 02/28/2018 SHINGLES VACCINES (#1) 02/28/2018 INFLUENZA VACCINE 12/06/2019 11/21/2017, 12/04/2016, 01/19/2016, Additional history exists Procedures Comments Procedure Name Priority Date/Time Associated Diag nosis CARDIAC PET MYOCARDIAL STAT 06/22/2019 Coronar y artery disease PERFUSION IMAGING 9:15 AM CDT involving manzanita co ronary artery of manzanita heart without angina pectoris CV CARDIAC PET STRESS STAT 06/22/2019 Coronary artery disease TEST 9:15 AM CDT involving manzanita co ronary artery of manzanita heart without angina pectoris ECG 12-LEAD Routine 06/14/2019 Coronary artery disease 7:14 AM CDT involving manzanita coronary artery of manzanita heart without angina pectoris LIPID PANEL Routine 06/13/2019 Coronary artery disease 1:35 PM CDT involving manzanita coronary artery of manzanita heart without angina pectoris TROPONIN Routine 06/13/2019 Coronary artery disease 1:35 PM CDT involving manzanita coronary artery of manzanita heart without angina pectoris after 10/28/2018 Results * CV Cardiac PET Myocardial Perfusion Imaging (06/22/2019 9:15 AM CDT) Specimen Narrative Performed At [facility] See PDF file for full result Procedure Note Interface, Radiology Results In - 06/26/2019 6:38 PM CDT See PDF file for full result Performing Organization Address City/State/Zipcode Ph one Number [facility] [address] [place] [address] * Cv stress test (06/22/2019 9:15 AM CDT) Resting HR 72 [facility] Resting BP 130 [facility] Peak MET 1.0 [facility] Achieved Protocol Name Raul [facility] Time in 00:01:00 [facility] Exercise Phase Max Systolic BP 148 [facility] Max Diastolic 70 [facility] BP Max Heart Rate 100 [facility] Max Predicted 169 [facility] Heart Rate Target HR (220 - Age)*100% [facility] Formula Test Indication chest pain [facility] Arrhy During Ex [facility] ECG Interp [facility] Before EX ECG Interp [facility] During Ex Ex Summary [facility] Comment Overall HR [facility] Response to Exercise Overall BP [facility] Response To Exercise Reason for Protocol Complete [facility] Termination Stress Test -Waveform interpreted in [facility] Impression report associated with imag e study. No interpretation is provided as part of this Stress ECG report.- Specimen Narrative Performed At This result has an attachment that is n ot available. Performing Organization Address [facility] one Number [facility] [address] [place] [address] * ECG 12 lead (06/14/2019 7:14 AM CDT) Ventricular 68 [facility] rate Atrial rate 68 [facility] HI interval 156 [facility] QRSD interval 110 [facility] QT interval 408 [facility] QTC interval 433 [facility] P axis 1 38 [facility] QRS axis 1 -25 [facility] T wave axis -19 [facility] EKG impression Normal sinus rhythm-Cannot [facility] rule out Inferior infarct , age undetermined-Abnormal ECG-In automated comparison with ECG of 05-JUL-2018 11:11,-Left anterior fascicular block is no longer present-T wave inversion now evident in Inferior leads- Specimen Narrative Performed At This result has an attachment that is n ot available. Performing Organization Address [facility] one Number [facility] [address] [place] [address] * Troponin (06/13/2019 1:35 PM CDT) Troponin <0.01 < OR = 0.05 ng/mL [facility] Comment: DIAGNOSTICS In accord with published [place] recommendations, serial testing of troponin I at intervals of 2 to 4 hours for up to 12 to 24 hours is suggested in order to corroborate a single troponin I result. An elevated troponin alone is not sufficient to make the diagnosis of CT. For additional information, please refer to http://education.[employer]/faq/AIM882 (This link is being provided for informational/ educational purposes only.) Specimen Blood Resulting Agency Comment Performing Organization Information: Site ID: [id number] Name: [facility] Address: [address] [place] [id number] Director: Ian Christian Performing Organization Address [facility] Ph one Number [facility] [place] [address] [place] [phone] * Lipid panel (06/13/2019 1:35 PM CDT) [facility] Cholesterol, 132 <200 mg/dL [facility] total DIAGNOSTICS [place] HDL cholesterol 38 (L) > OR = 40 mg/dL [facility] [place] Triglycerides 272 (H) <150 mg/dL [facility] Comment: DIAGNOSTICS If a non-fasting specimen was VANCE collected, consider repeat triglyceride testing on a fasting specimen if clinically indicated. Fatimah et al. J. of Clin. Lipidol. 2015;9:129-169. LDL cholesterol 62 mg/dL (calc) [facility] calculated Comment: DIAGNOSTICS Reference range: <100 [place] Desirable range <100 mg/dL for primary prevention; <70 mg/dL for patients with CHD or diabetic patients with > or = 2 CHD risk factors. LDL-C is now calculated using the Ernie-Veronica calculation, which is a validated novel method providing better accuracy than the Friedewald equation in the estimation of LDL-C. Ernie GODOY et al. CASSIE. 2013;310(19): 7245-0155 (http://education.[employer]/faq/XJR425) Cholesterol/HDL 3.5 <5.0 (calc) [facility] ratio DIAGNOSTICS [place] Non-HDL 94 <130 mg/dL (calc) [facility] cholesterol Comment: DIAGNOSTICS For patients with diabetes [place] plus 1 major ASCVD risk factor, treating to a non-HDL-C goal of <100 mg/dL (LDL-C of <70 mg/dL) is considered a therapeutic option. Specimen Blood Resulting Agency Comment Performing Organization Information: Site ID: [id number] Name: [facility] Address: [address] [place] [id number] Director: Ian Christian Performing Organization Address City/State/Zipcode Ph one Number [facility] [address] [phone] after 10/28/2018 Insurance Type Payer Benefit Subscriber ID Effective Phone Address Plan / Dates Group PPO BCBS BCBS xxxxxxxxxxxx 2016- CHOICE Present PPO/VIOLA MEDRANO PPO [id number] Advance Directives For more information, please contact: [phone] Patient Director Of Student Financial Services Explanation Type Date Recorded Advance Directives, 05/20/2017 10:25 AM Living Will 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
--- OUTSIDE RECORDS SUMMARY | 2019-10-29 07:37 | XMS REPORT | Summary of Care ---
Author HANG Hernández LVN Organization Unknown Address [facility] Phone Unavailable Care Team Providers Care Form Maker Plaster Name Role Phone PEARL Carson, REZA Unavailable Unavailable MARIE NOWAK APRN Unavailable Unavailable CARLITO Carson, BERNADINE Unavailable Unavailable DAVID BOWSER [place], ADONIS ALICIA Unavailable Unavailable Reza Hicks MD Unavailable Unavailable DAVID Carson, ADONIS Unavailable Unavailable BERNADINE ESTEBAN MD Unavailable Unavailable Unavailable Unavailable Functional Status Name Dates Details Functional status health issues are not documented Status: Name Dates Details Cognitive status health issues are not d ocumented Status: Problems Name Dates Details Arthralgia of temporomandibular joint (5 24.62, M26.629) Status: Active Insomnia (780.52, G47.00) Status: Active Cirrhosis (571.5, K74.60) Status: Active 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, 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 Coronary artery disease (414.00, I25.10) Status: Active Central perforation of tympanic membrane (384.21, H72.00) Status: Active Bleeding external hemorrhoids (455.5, K6 4.4) Status: Active Hyperlipidemia (272.4, E78.5) Status: Active Apnea (786.03, R06.81) Status: Active Need for influenza vaccination (V04.81, Z23) Status: Active Morales's esophagus (530.85, K22.70) Status: Active Obstructive sleep apnea (327.23, G47.33) Status: Active Sinusitis, acute maxillary (461.0, J01.0 0) Status: Active Neuropathy, diabetic (250.60, E11.40) Status: Active Erectile dysfunction (607.84, N52.9) Status: Active Eustachian tube disorder (381.9, H69.90) Status: Active Otalgia of left ear (388.70, H92.02) Status: Active Vasovagal episode (780.2, R55) Status: Active Abnormal auditory perception, right (388 .40, H93.291) Status: Active Dizziness (780.4, R42) Status: [...] Status: Active Diabetes mellitus type 2, uncontrolled ( 250.02, E11.65) Status: Active Headache (784.0, R51) Status: Active Pneumonia (486, J18.9) Status: Active Seasonal allergies (477.9, J30.2) Status: Active Post-viral cough syndrome (786.2, R05) Status: Active Medications Name Dates Details Atorvastatin Calcium 20 MG Oral Tablet Active Lisinopril 10 MG Oral Tablet TAKE 1 TABLET BY MOUTH ONCE DAILY * Quantity: 90 Refills: 1 * Start : 02-Oct-2013 Active Metoprolol Tartrate 100 MG Oral Tablet TAKE 1 TABLET EVERY 12 HOURS DAILY. * Refills: 0 Active Jardiance 25 MG Oral Tablet TAKE 1 TABLET BY MOUTH EVERY MORNING * Quantity: 30 Refills: 2 REZA HICKS M.D. * Start : 19-Jul-2018 Active traMADol HCl - 50 MG Oral Tablet TAKE 1 TABLET EVERY 4 TO 6 HOURS NEEDED FOR PAIN. * Quantity: 30 Refills: 1 MARIE NOWAK APRN * Start : 08-Oct-2015 Active Janumet 50-1000 MG Oral Tablet TAKE 1 TABLET BY MOUTH TWICE DAILY WITH MEALS * Quantity: 60 Refills: 2 REZA HICKS M.D. * Start : 13-Nov-2015 Active NovoLOG FlexPen 100 UNIT/ML Subcutaneous Solution Pen-injector inject ICR 1:10 g with breakfast and lunch and 1:9 g with dinner plus CF 1:50 mg /dL MDD:30 U * Quantity: 1 Refills: 2 MARIE NOWAK APRN * Start : 23-Feb-2016 Active 5 x 3 ML Pen BD Pen Needle Sybil U/F 32G X 4 MM use to inject 4xs daily * Quantity: 1 Refills: 2 MARIE NOWAK APRN * Start : 23-Feb-2016 Active 200 Unit Box Clopidogrel Bisulfate 75 MG Oral Tablet TAKE 1 TABLET DAILY. * Refills: 0 Active Divalproex Sodium 250 MG Oral Tablet Delayed Release TAKE 1 TABLET 3 TIMES DAILY. * Refills: 0 Active Mirapex 0.25 MG TABS TAKE 1 TO 2 TABLETS AT BEDTIME * Refills: 0 Active Isosorbide Mononitrate ER 120 MG Oral Tablet Extended Release 24 Hour TAKE 1 TABLET DAILY. * Refills: 0 Active Microlet Lancets CHECK BLOOD SUGAR FOUR times daily * Quantity: 4 Refills: 0 REZA HICKS M.D. * Start : 08-Nov-2017 Active 100 Unit Box Gayatri Contour Monitor w/Device Kit USE DIRECTED BG CHECK * Quantity: 1 Refills: 0 REZA HICKS M.D. * Start : 19-Aug-2017 Active Contour Next Test In Vitro Strip use to check BG 4xs daily * Quantity: 200 Refills: 2 MARIE NOWAK APRN * Start : 19-Sep-2017 Active NovoLOG 100 UNIT/ML Subcutaneous Solution per insulin pump: basal: MN 0.25, 4AM 0.3, ICR 1:8 g, ISF 1:50>100-120 MDD:50 U * Quantity: 2 Refills: 2 REZA HICKS M.D. * Start : 09-Jan-2018 Active 10 ML Vial Promethazine HCl - 25 MG Oral Tablet TAKE 1 TABLET EVERY 6 HOURS NEEDED. * Quantity: 20 Refills: 0 MARIE NOWAK APRN Active Ondansetron 8 MG Oral Tablet Disintegrating * Refills: 0 * Start : 30-Oct-2018 Active Ezetimibe 10 MG Oral Tablet TAKE 1 TABLET DAILY. * Refills: 0 Active guaiFENesin-DM 100-10 MG/5ML Oral Syrup TAKE 5 ML EVERY 4 TO 6 HOURS NEEDED. * Quantity: 42 Refills: 0 BERNADINE ESTEBAN M.D. * Start : 11-Oct-2019 Active 5 ML Cup Levocetirizine Dihydrochloride 5 MG Oral Tablet TAKE 1 TABLET BY MOUTH EVERY DAY * Quantity: 30 Refills: 3 CARLITO Pa., BERNADINE * Start : 11-Oct-2019 Active Fluticasone Propionate 50 MCG/ACT Nasal Suspension USE 1 SPRAY IN EACH NOSTRIL ONCE DAILY. * Quantity: 3 Refills: 0 SERGIOEYUDDIN Sarah.Olive., BERNADINE * Start : 11-Oct-2019 Active 9.9 ML Bottle Allergies and Adverse Reactions Name Dates Details Bactrim TABS (Allergy) Status: Active Demerol TABS (Allergy) Status: Active Past Medical History Name Dates Details History of Acute Myocardial Infarction ( V12.59) Status: Resolved History of type 2 diabetes mellitus (V12 .29, Z86.39) Status: Resolved Procedures Procedure Dates Details History of Cath Stent Placement Complete d History of Wrist Surgery Completed History of Back Surgery Completed History of Cholecystectomy Completed Immunization Name Dates Details Influenza on: 31-Dec-2009 Fluvirin INJ Lot #: [id number] on: 24-Jan-2014 Influenza on: 19-Jan-2016 Influenza on: 04-Dec-2016 Influenza on: 21-Nov-2017 Family History Name Dates Details Family history of Hypertension (V17.49) Comments: Family History Status: Active Name Dates Details Family history of diabetes mellitus (V18 .0, Z83.3) Status: Active Family history of hypertension (V17.49, Z82.49) Status: Active Family history of hyperlipidemia (V18.19 , Z83.438) Status: Active Social History Name Dates Details - Status: Name Dates Details Ex-smoker (finding) Vital Signs Date Test Result Details No Known Vitals to report Results Date Description Value Details Results not documented Plan of Care Name Dates Details Planned Observations Planned Goals not documented Interventions Provided Medication Changes* Fluticasone Propionate 50 MCG/ACT Nasal Suspension - Renew Instructions Name Dates Details Instructions not documented Encounters Appointment; REZA HICKS M.D. Encounter Diagnosis: Problem not documented On: 20-Dec-2017 16:00 Appointment; RIKA HOPKINS P.A. Encounter Diagnosis: Problem not documented On: 19-Jan-2018 16:15 Appointment; MARIE NOWAK APRN Encounter Diagnosis: Problem not documented On: 07-Feb-2018 19:00 Appointment; MARIE NOWAK APRN Encounter Diagnosis: Problem not documented On: 09-Feb-2018 15:45 Appointment; MARIE NOWAK APRN Encounter Diagnosis: Problem not documented On: 13-Feb-2018 16:15 Appointment; MARIE NOWAK APRN Encounter Diagnosis: Problem not documented On: 20-Feb-2018 18:45 Appointment; ADONIS HERNANDEZ M.D. Encounter Diagnosis: Problem not documented On: 04-Mar-2018 13:00 Appointment; RIKA HOPKINS P.A. Encounter Diagnosis: Problem not documented On: 29-Apr-2018 9:45 Appointment; REZA HICKS M.D. Encounter Diagnosis: Problem not documented On: 31-May-2018 14:00 Appointment; MARIE NOWAK APRN Encounter Diagnosis: Problem not documented On: 30-Oct-2018 18:45 Appointment; BERNADINE ESTEBAN M.D. Encounter Diagnosis: Problem not documented On: 17-Sep-2019 16:00 Appointment; BERNADINE ESTEBAN M.D. Encounter Diagnosis: Problem not documented On: 11-Oct-2019 15:00
--- OUTSIDE RECORDS SUMMARY | 2019-10-29 07:37 | XMS REPORT | Summary of Care ---
Author HANG Flynn M.D. Organization Unknown Address Unknown Phone Unavailable Care Team Providers Care Lithopone Charger Name Role Phone PEARL Carson, REZA Unavailable Unavailable NOWAK MARIE VICTOR Unavailable Unavailable CARLITO Carson, BERNADINE Unavailable Unavailable ADONIS REYES MD Unavailable Unavailable Reza Hicks MD Unavailable Unavailable [...] PAIN. * Quantity: 30 Refills: 1 NOWAK MARIE VICTOR * Start : 08-Oct-2015 Active Janumet 50-1000 [...] DAY * Quantity: 30 Refills: 3 CARLITO CarsonBERNADINE * Start : 11-Oct-2019 Active Fluticasone Propionate 50 MCG/ACT Nasal Suspension USE 1 SPRAY IN EACH NOSTRIL ONCE DAILY. * Quantity: 1 Refills: 1 CARLITO Carson, BERNADINE * Start : 11-Oct-2019 Active 9.9 [...] Influenza on: 31-Dec-2009 Fluvirin INJ Lot #: [id number] on: 24-Jan-2014 Influenza on: 19-Jan-2016 Influenza on: [...] Fluticasone Propionate 50 MCG/ACT Nasal Suspension - Start * guaiFENesin-DM 100-10 MG/5ML Oral Syrup - Start * Levocetirizine Dihydrochloride 5 MG Oral Tablet - Start Plan* 1. Seasonal allergies * - Advised using nasal saline spray to rinse out allergens and provide effective delivery of nasal glucocorticoid spray * - Flonase may be used twice daily * - Oral antihistamine may be taken once daily at bedtime to help limit symptoms * - Discussed trigger avoidance. * 2. Post viral cough * - Discussed it could persist for weeks, and may be combination of allergies as well * - Failed trial of Tessalon Perles, gauifensin Rx sent. Instructions Name Dates Details Instructions not documented Encounters Appointment; BEVERLY ALONSO RD Encounter Diagnosis: Problem not documented On: 10-Oct-2017 8:00 Appointment; REZA HICKS M.D. Encounter Diagnosis: Problem [...]
--- OUTSIDE RECORDS SUMMARY | 2019-10-29 07:37 | XMS REPORT | Continuity of Care Document ---
Author Author [facility] t Organization [facility] Address [address] [place] [address] [address] [place] [address] Phone Unavailable Care Team Providers Care Instructional Supervisor Name Role Phone Roshan JAMES PCP BERNADINE ESTEBAN M.D. Attphys Unavailable Aníbal FIGUEROA, Luis Attphys Unavailable Andrea BOWSER, Vinod Stovall Attphys [phone] DREW ONEAL Attphys Unavailable MARIE NOWAK APRN Attphys Unavailable REZA KANG M.D. Attphys Unavailable VINOD HOPKINS P.A. Attphys Unavailable JITENDRA SUGGS Attphys Unavailable ADONIS JAMES M.D. Attphys Unavailable BEVERLY ALONSO RD Attphys Unavailable MARIE NOWAK NP Attphys Unavailable DIEGO BERRIOS M.D. Attphys Unavailable RODDY HALEY P.A. Attphys Unavailable KALI KERNS M.D. Attphys Unavailable JIA MERINO NP Attphys Unavailable JITENDRA SUGGS Admphylaura Unavailable Payers Payer Name Policy Type Policy Number Effective Date Expiration Date S cristal BCBSBCBS CHOICE PPO/FEDERAL EMPL [id number] esentPPO xxxxxxxxxxxx 2016 00:00:00 [facility] Ppo [id number] 2016 00:00:00 [facility] Problems Condition Name Condition Details Condition Category Status Onset Date Resolution Date Last Treatment Date Treating Clinician Comments Source Coronary artery disease Coronary artery disease Disease Active 2018-07-26 00:00:[address] Diabetes mellitus Diabetes mellitus Disease Active 2018-07-26 00:00:00 Rajiv Wallace Dizziness Dizziness Disease Active 2018-07-26 00:00:00 Rajiv Wallace Dyspepsia Dyspepsia Disease Active 2018-07-26 00:00:00 Rajiv Wallace Erectile dysfunction Erectile dysfunction Disease Active 00:00:00 Rajiv Wallace Arthralgia of temporomandibular joint Arthralgia of temporom andibular joint Disease Active 2018-07-26 00:00:00 Rajiv Wallace Morales's esophagus Morales's esophagus Disease Active 2018-07-26 00:00 :00 Rajiv Wallace Bleeding external hemorrhoids Bleeding external hemorrhoids Disease Active 2018-07-26 00:00:00 Rajiv Wallace Cellulitis of right lower extremity Cellulitis of right lower ex tremity Disease Active 2018-07-26 00:00:00 [place] [facility] Central perforation of tympanic membrane Central perfo ration of tympanic membrane Disease Active 2018-07-26 00:00:00 [facility] Essential (primary) hypertension Essential (primary) hypertensio n Disease Active 2018-07-26 00:00:00 [place] [facility] Eustachian tube disorder Eustachian tube disorder Disease Acti ve 2018-07-26 00:00:00 Rajiv shearer Need for influenza vaccination Need for influenza vaccination Disea se Active 2018-07-26 00:00:00 Rajiv Wallace Migraine headache Migraine headache Disease Active 2018-07-26 00:00:00 Rajiv Wallace Insomnia Insomnia Disease Active 2018-07-26 00:00:00 Rajiv Wallace Hypertrophic scar Hypertrophic scar Disease Active 2018-07-26 00:00:00 Rajiv Wallace Precordial chest pain Precordial chest pain Disease Active 201 10-14-17 00:00:00 Rajiv Camara t Chest pain Chest pain Disease Active 2017-05-20 00:00:00 Rajiv Wallace Chest pain Chest pain Problem Active 2015-10-20 00:00:00 [facility] Cellulitis of right lower extremity Cellulitis of right lower ex tremity Problem Active [facility] Sepsis Sepsis Problem Active [facility] History of Acute Myocardial Infarction History of Acute Myoc ardial Infarction Problem Resolved [facility] History of type 2 diabetes mellitus History of type 2 diabetes m ellitus Problem Resolved [facility] Arthralgia of temporomandibular joint Arthralgia of temporom andibular joint Problem Active [facility] Insomnia Insomnia [facility]osis [facility]osis [facility] Hypertrophic scar Hypertrophic scar Problem Active [facility] Coronary artery disease Coronary artery disease Problem Active [facility] Central perforation of tympanic membrane Central perfo ration of tympanic membrane Problem Active [facility] Bleeding external hemorrhoids Bleeding external hemorrhoids Problem Active [facility] Hyperlipidemia Hyperlipidemia Problem Active [facility] Ap[facility] Need for influenza vaccination Need for influenza vaccination Problem Active [facility] Morales's esophagus Morales's esophagus Problem Active [facility] Obstructive sleep apnea Obstructive sleep apnea Problem Active [facility] Sinusitis, acute maxillary Sinusitis, acute maxillary Problem Active [facility] Neuropathy, diabetic Neuropathy, diabetic Problem Active [facility] Erectile dysfunction Erectile dysfunction Problem Active [facility] Eustachian tube disorder Eustachian tube disorder Problem Active [facility] Otalgia of left ear Otalgia of left ear Problem Active [facility] Vasovagal episode Vasovagal episode Problem Active [facility] Abnormal auditory perception, right Abnormal auditory perception , right Problem Active [facility] Dizziness Dizziness Problem Active [facility] Fatty liver Fatty liver Problem Active [facility] Dyspepsia Dyspepsia Problem Active [facility] Hemorrhoid Hemorrhoid Problem [facility] Essential (primary) hypertension Essential (primary) hypertensio n Problem Active [facility] Migraine headache Migraine headache Problem Active [facility] Allergic rhinitis Allergic rhinitis Problem Active [facility] LAD (lymphadenopathy), inguinal LAD (lymphadenopathy), inguinal Pro blem Active [facility] Edema of right ankle Edema of right ankle Problem Active [facility] Insulin pump in place Insulin pump in place Problem Active [facility] Diabetes mellitus type 2, uncontrolled Diabetes mellitus typ e 2, uncontrolled Problem Active [facility] Headache Headache Problem [facility] Pneumonia Pneumonia Problem Active [facility] Seasonal allergies Seasonal allergies Problem Active [facility] Post-viral cough syndrome Post-viral cough syndrome Problem Active [facility] Pure hypercholesterolemia Pure hypercholesterolemia Active Problem 11/16/2017 Lucinda Smithoudi Problem Active 20 23-11-11 02:48:56 [facility] Angina of effort Khushi na of effort Active Problem 11/16/2017 Mohteresa O Luisoudi Problem Active 2017-11-16 02:48:56 [facility] Palpitations Palp itations Active Problem 11/16/2017 Lucinda Smithoudi Problem Active 2017-11-16 02:48:56 [facility] Diabetes mellitus with complication Diabetes mellitus with complication Active Problem 11/16/2017 Mohamed O Luisoudi Problem Active 2017-11-16 02:48:56 [facility] Benign hypertensive heart disease Benign hypertensive heart disease Active Problem 11/16/2017 Mohamed O Luisoudi Problem Active 2017-11-16 02:48:56 [facility] S/P PTCA (percutaneous transluminal coronary angioplas ty) S/P PTCA (percutaneous transluminal coronary angioplasty) Active Problem 11/16/2017 Lucinda Smithoudi Problem Active 2017-11-16 02:48:56 [facility] Abnormal EKG Abno rmal EKG Active Problem 11/16/2017 Lucinda Smithoudi Problem Active 2017-11-16 02:48:56 [facility] Diabetes mellitus with complication Diabetes mellitus with complication Active Problem 11/13/2014 Lucinda Smithoudi Problem Active 2014-11-13 02:45:02 [facility] Benign hypertensive heart disease Benign hypertensive heart disease Active Problem 11/13/2014 Lucinda Smithoudi Problem Active 2014-11-13 02:45:02 [facility] Hypercholesterolemia Hype rcholesterolemia Active Problem 11/13/2014 Lucinda Smithoudi Problem Active 2014-11-13 02:45:02 [facility] Angina Khushi na Active Problem 11/13/2014 Lucinda Smithoudi Problem Active 2014-11-13 02:45:02 [facility] 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 Car otid art occ w/o infarc Active Problem 11/13/2014 Mohamed O Luisoudi Problem Active 2014-11-13 02:45:02 [facility] Chest Pain Ches t Pain Active Problem 11/13/2014 Lucinda O Luisoudi Problem Active 2014-11-13 02:45:02 [facility] S/P PTCA (percutaneous transluminal coronary angioplas ty) S/P PTCA (percutaneous transluminal coronary angioplasty) Active Problem 11/13/2014 Lucinda Combs Problem Active 2014-11-13 02:45:02 [facility] Abnormal ECG Abno rmal ECG Active Problem 11/13/2014 Lucinda Combs Problem Active 2014-11-13 02:45:02 [facility] Unstable Angina Unst able Angina Active Problem 11/13/2014 Lucinda Combs Problem Active 2014-11-13 02:45:02 [facility] CAD, Lummi Coronary Artery CA D, Lummi Coronary Artery Active Problem 11/13/2014 Lucinda Combs Problem Active 2014-11-13 02:45:02 [facility] Hypertension Hype rtension Active 07/07/2013 [facility] Problem Active 2013-07-07 16:00:13 Jamin Pedraza Diabetes Mellitus Diab etes Mellitus Active 07/07/2013 [facility] Problem Active 2013-07-07 [facility]13 [facility] Abnormal Liver Function Test A bnormal Liver Function Test Active 07/07/2013 [facility] Problem Active 2013-07-07 1 6:00:13 [facility] Cirrhosis Cirr hosis Active 07/07/2013 [facility] Problem Active 2013-07-07 16:00:13 [facility] Coronary Artery Disease Shon nary Artery Disease Active 07/07/2013 [facility] Problem Active 2013-07-07 16:00: 13 [facility] Insomnia Inso mnia Active 07/07/2013 [facility] Problem Active 2013-07-07 16:00:13 [facility] Headache Head ache Active 07/07/2013 [facility] Problem Active 2013-07-07 16:00:13 [facility] Keloid Scar Kelo id Scar Active 07/07/2013 [facility] Problem Active 2013-07-07 16:00:13 [facility] Dermatitis Derm atitis Active 07/07/2013 [facility] Problem Active 2013-07-07 16:00:13 [facility] External Hemorrhoids With Bleeding External Hemorrhoids With Bleeding Active 07/07/2013 [facility] Problem Active 2013-07-07 16:00:13 [facility] Dyspepsia Dysp epsia Active 07/07/2013 [facility] Problem Active 2013-07-07 16:00:13 [facility] TMJ Pain TMJ Pain Active 07/07/2013 [facility] Problem Active 2013-07-07 16:00:13 Joy Pedraza Acute Otitis Externa Acut e Otitis Externa Active 07/07/2013 [facility] Problem Active 2013-07-07 16:00:13 Joy Pedraza Central Perforation Of The Tympanic Membrane 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 07/07/2013 [facility] Problem Active 2013-07-07 16:00:13 Dex Pedraza Allergies, Adverse Reactions, Alerts Allergy Name Allergy Type Status Severity Reaction(s) Onset Date Inacti ve Date Treating Clinician Comments Source meperidine HCl Allergy to Substance Active Moderate EXTREME VOM ITING 2018-03-05 00:00:00 [facility] Meperidine Propensity to adverse reactions to drug Active GI Intolerance 2016-09-13 00:00:00 Nausea, and vomitting [place] [facility] Demerol TABS Allergy to drug (finding) Active [facility] Bactrim TABS Allergy to drug (finding) Active [facility] Demerol TABS Demerol TABS Active Joy Pedraza Family History Family Member Diagnosis Comments Start Date Stop Date Source Unknown Family Member Family history of Hypertension Family History [facility] Unknown Family Member Family History 2012-11-03 09:16:02 2 09:16:02 Joy Pedraza Mother Family history of diabetes mellitus [facility] Mother Family history of hypertension [facility] Mother Family history of hyperlipidemia [facility] Natural father No Known Problems Zenaida Wallace Natural mother Diabetes [place] [facility] Natural mother Hypertension Rajiv Wallace Natural sister Diabetes [place] [facility] Natural sister Hypertension Rajiv Wallace Social History Social Habit Start Date Stop Date Quantity Comments Source History of tobacco use Cigarette Smoker Rajiv Wallace Sex Assigned At Zenaida Wallace Alcohol intake 2019-06-13 00:00:00 2019-06-13 00:00:00 Current non-drinker of alcohol (finding) Rajiv Wallace Smoking 2014-09-19 00:00:00 2014-09-19 00:00:00 Joy Pedraza Social History 2013-07-07 16:00:13 2013-07-07 16:00:13 Joy Pedraza Smoking Status Start Date Stop Date Source Former smoker 2019-06-13 00:00:00 2019-06-13 00:00:00 Rajiv Wallace Medications Ordered Medication Name Filled Medication Name Start Date Stop Da te Current Medication? Ordering Clinician Indication Dosage Frequency Signature (SIG) Comments Components Source guaiFENesin-DM 100-10 MG/5ML Oral Syrup guaiFENesin-DM 100-1 0 MG/5ML Oral Syrup 2019-10-11 00:00:00 Yes BERNADINE ESTEBAN M.D. TAKE 5 ML EVERY 4 TO 6 HOURS NEEDED. [facility] Levocetirizine Dihydrochloride 5 MG Oral Tablet Levoce tirizine Dihydrochloride 5 MG Oral Tablet 2019-10-11 00:00:00 Yes BERNADINE ESTEBAN M.D. TAKE 1 TABLET BY MOUTH EVERY DAY [facility] Fluticasone Propionate 50 MCG/ACT Nasal Suspension Flu ticasone Propionate 50 MCG/ACT Nasal Suspension 2019-10-11 00:00:00 Yes BERNADINE Duque QD USE 1 SPRAY IN EACH NOSTRIL ONCE DAILY. [facility] traMADol (ULTRAM) 50 mg tablet 2019-06-13 12:17:07 Yes 50mg Q6H Take 50 mg by mouth every 6 (six) hours as needed for moderate pain. [place] [facility] promethazine (PHENERGAN) 25 MG tablet 2019-06-13 12:17:07 Y es 25mg Q6H Take 25 mg by mouth every 6 (six) hours as needed for nausea or vomiting. Rajiv Wallace insulin ASPART (NovoLOG) 100 unit/mL injection 2019-06-13 12:17: 07 Yes 4U QD Inject 4 Units under the skin daily before breakfast. Rajiv Wallace insulin ASPART (NovoLOG) 100 unit/mL injection 2019-06-13 12:17: 07 Yes 54U QD Inject 54 Units under the skin daily before lunch. Rajiv Wallace insulin ASPART (NovoLOG) 100 unit/mL injection 2019-06-13 12:17: 07 Yes 6U QD Inject 6 Units under the skin daily before dinner. [facility] divalproex (DEPAKOTE) 250 MG EC tablet 2019-06-13 12:17:07 Yes 250mg QD Take 250 mg by mouth every morning. Wily Wallace divalproex (DEPAKOTE) 250 MG EC tablet 2019-06-13 12:17:07 Yes 500mg QD Take 500 mg by mouth nightly. Rajiv desouza empagliflozin (JARDIANCE) 25 mg tablet 8 12:17:2019-06-13 00:00:00 No 25mg QD Take 25 mg by mouth daily. Rajiv Wallace INSULIN GLARGINE,HUM.REC.ANLOG (KELLI FISH U-300 INSULI N SUBQ) 2019-06-13 12:16:55 2019-06-13 00:00:00 No 10U QD Inject 10 Units under the skin every evening. Rajiv Wallace anastrozole (ARIMIDEX) 1 mg chemo tablet 2019-06 12:16:40 2019-06-13 00:00:00 No .5mg Q7D Take 0.5 mg by mouth once a wee k Rajiv Wallace lisinopriL (PRINIVIL) 10 mg tablet 2019-06-13 00:00:00 Yes 10mg QD Take 1 tablet (10 mg total) by mouth daily. Melva Wallace ezetimibe (ZETIA) 10 mg tablet 2019-06-13 00:00:00 2020-06-12 23 :59:00 No 10mg QD Take 1 tablet (10 mg total) by mouth daily. Rajiv Wallace metoprolol tartrate (LOPRESSOR) 50 mg tablet 2018-11-09 00:00:00 Yes TAKE 1 TABLET(50 MG) BY MOUTH TWICE DAILY Rajiv Wallace Ondansetron 8 MG Oral Tablet Disintegrating Ondansetro n 8 MG Oral Tablet Disintegrating 2018-10-30 00:00:00 Yes [facility] metoprolol tartrate (LOPRESSOR) 50 mg tablet 201 11-10-06 00:00:00 2018-11-08 00:00:00 No TAKE 1 TABLET(50 MG) BY MOUTH T WICE DAILY Rajiv Wallace atorvastatin (LIPITOR) 40 MG tablet 2018-07-26 00:00:00 Yes Other hyperlipidemia 40mg QD Take 1 tablet (40 mg total) by mouth daily. Default OP ins Rajiv Wallace isosorbide mononitrate (IMDUR) 120 MG 24 hr tablet 2018-07-26 00:00:00 2019-07-26 23:59:00 No 120mg Q.5D Take 1 tablet (120 mg total) by mouth 2 (two) times a day. Rajiv Wallace Jardiance 25 MG Oral Tablet Jardiance 25 MG Oral Tablet 2018-07-19 10:36:59 Yes REZA KANG M.D. TAKE 1 TABLET BY MOUTH EVERY M ORNING [facility] metoprolol tartrate (LOPRESSOR) 50 mg tablet 2018-07-05 00:00:00 Yes TAKE 1 TABLET(50 MG) BY MOUTH TWICE DAILY Rajiv Wallace clopidogrel (PLAVIX) 75 mg tablet 2018-07-05 00:00:00 Yes 75mg QD Take 1 tablet (75 mg total) by mouth daily. Zenaida Wallace lisinopril (PRINIVIL,ZESTRIL) 5 mg tablet 07-05 00:00:00 2019-06-13 00:00:00 No 5mg QD Take 1 tablet (5 mg total) by m outh daily. Rajiv Wallace Cephalexin 500 Mg Capsule Cephalexin 500 Mg Capsule 2018-02-17 00:00: 00 Yes Jitendra Suggs Md 500 Four Times Daily [facility] NovoLOG 100 UNIT/ML Subcutaneous Solution NovoLOG 100 UNIT/ML Subcutaneous Solution 2018-01-09 00:00:00 Yes REZA KANG M.D. per insulin pump: basal: MN 0.25, 4AM 0.3, ICR 1:8 g, ISF 1:50>100-120 MDD:50 U [facility] Lisinopril 2017-11-16 02:48:56 Yes Lucinda Combs 1 tablet [facility] Lancets Microlet Lancets 2017-11-08 15:25:02 Yes KHADIJAH KANG M.D. CHECK BLOOD SUGAR FOUR times daily [facility] Contour Next Test In Vitro Strip Contour Next Test In Vitro Strip 2017-09-19 00:00:00 Yes MARIE NOWAK APRN use to check BG 4xs d aily [facility] Gayatri Contour Monitor w/Device Kit Gayatri Contour Monitor w/D evice Kit 2017-08-19 00:00:00 Yes REZA KANG M.D. USE DIRECTED BG CH MAL [facility] pramipexole (MIRAPEX) 0.25 MG tablet 2016-09-04 00:00:00 Ye s .25mg QD Take 0.25 mg by mouth nightly. Rajiv Wallace JANUMET 50-1,000 mg per tablet 2016-09-03 00:00:00 Yes 1{tbl} Q.5D Take 1 tablet by mouth 2 (two) times a day with meals. Rajiv Wallace Plavix 2016-07-27 02:45:27 Yes Lucinda Lauryn 1 tablet [facility] Lisinopril 2016-07-27 02:45:27 Yes Lucinda Smitharyanwicho 1 tablet [facility] montelukast (SINGULAIR) 10 mg tablet 2016-06-29 00:00: 00 2019-06-13 00:00:00 No 10mg QD Take 10 mg by mouth nightly. Rajiv Wallace Metoprolol Tartrate 2016-06-23 02:45:06 Yes Lucinda Combs 1 capsule [facility] Atorvastatin Calcium 2016-06-17 02:45:17 Yes Lucinda Smithcherry 1 tablet [facility] Metoprolol Tartrate 2016-05-29 02:45:02 Yes Lucinda Monten[place]ro boris 1/2 half tablet [facility] BD Pen Needle Sybil U/F 32G X 4 MM BD Pen Needle Sybil U/F 32G X 4 MM 2016-02-23 00:00:00 Yes MARIE NOWAK TAPE CUTTER use to inject 4xs andrey ly [facility] NovoLOG FlexPen 100 UNIT/ML Subcutaneous Solution Pen- injector NovoLOG FlexPen 100 UNIT/ML Subcutaneous Solution Pen-injector 2016-02-23 00:00:00 Yes MARIE NOWAK TAPE CUTTER inject ICR 1:10 g with breakfast and lunch and 1:9 g with dinner plus CF 1:50 mg/dL MDD:30 U [facility] Janumet 50-1000 MG Oral Tablet Janumet 50-1000 MG Oral Table t 2015-11-13 00:00:00 Yes REAZ KANG M.D. TA KE 1 TABLET BY MOUTH TWICE DAILY WITH MEALS [facility] Dexlansoprazole (Dexilant) 60 Mg Cap., 60 Mg Oral Dexlansoprazole (Dexilant) 60 Mg Cap., 60 Mg Oral 2015-10-24 00:00:00 2016-09-04 00:00:00 No Jitendra Suggs Md 60 Twice A Day [facility] traMADol HCl - 50 MG Oral Tablet traMADol HCl - 50 MG Oral T ablet 2015-10-08 00:00:00 Yes MARIE NOWAK APRN TAKE 1 TABLET EVERY 4 TO 6 HOURS NEEDED FOR PAIN. [facility] Lipitor 2014-11-13 02:45:02 Yes Lucinda Combs 1 tablet Joy Pedraza Lisinopril 10 MG Oral Tablet Lisinopril 10 MG Oral Tablet 2013-09-05 00:00:00 Yes TAKE 1 TABLET BY MOUTH ONCE DAILY [facility] Lisinopril 5 MG Oral Tablet 2013-07-07 16:00:13 Yes (Active) Joy Pedraza Plavix 75 MG Oral Tablet 2013-07-07 16:00:13 Yes (Active) Joy Pedraza Atorvastatin Calcium 20 MG Oral Tablet 2013-07-07 16:00:13 Yes (Active) Joy Pedraza Pepcid 40 MG Oral Tablet 2013-07-07 16:00:13 Yes (Active) Joy Pedraza Aspirin 81 MG Oral Tablet 2013-07-07 16:00:13 Yes (Active) Joy Rauschann Metoprolol Succinate ER 100 MG Oral Tablet Extended Release 24 Hour 2013-07-07 16:00:13 Yes (Active) Memor ial Milo Zolpidem Tartrate ER 12.5 MG Oral Tablet Extended Release 2013-07-06 05:00:00 Yes ; Start Date: 07/06/2013 (Active ) Joy Pedraza Zolpidem Tartrate ER 12.5 MG Oral Tablet Extended Release 2013-07-04 18:47:49 Yes (Active) [facility]ori [facility] Vasculera Oral Tablet 2013-07-04 18:47:49 Yes (Active) Joy Rauschann Ciprodex 0.3-0.1 % Otic Suspension 2013-06-23 05:00:00 Yes ; Start Date: 06/23/2013; End Date: (Active) Joy Joshua Propranolol HCl 60 MG Oral Tablet 2013-05-31 22:03:51 Yes (Active) Joy Pedraza Metoprolol Succinate ER 100 MG Oral Tablet Extended Release 24 Hour 2013-05-16 18:31:41 Yes (Active) [facility] ial [facility] Protonix 40 MG Oral Tablet Delayed Release 2013-05-10 18:16:49 Yes (Active) Joy Pedraza MetFORMIN HCl 1000 MG Oral Tablet 2013-04-27 15:17:29 Yes (Active) Joy Milo Januvia 100 MG Oral Tablet 2013-04-27 15:17:29 Yes (Active) Joy Milo Lisinopril 5 MG Oral Tablet 2013-04-13 06:00:00 Yes ; Start Date: 04/13/2013 (Active) Joy Pedraza Nitroglycerin 0.4 MG SUBL 2013-03-09 19:01:25 Yes (Active) Joy Pedraza Isosorbide Mononitrate ER 30 MG Oral Tablet Extended Release 24 Hour 2013-03-09 19:01:25 Yes (Active) Joy Pedraza CloNIDine HCl 0.2 MG Oral Tablet 2013-03-09 19:01:25 Yes (Active) Joy Pedraza GlipiZIDE 5 MG Oral Tablet 2013-03-09 19:01:25 Yes (Active) Joy Pedraza Treximet TABS 2013-03-09 19:01:25 Yes (Acti ve) Joy Pedraza Imitrex 50 MG Oral Tablet 2013-03-09 19:01:25 Yes (Active) Joy Pedraza Byetta 5 MCG Pen 5 MCG/0.02ML Subcutaneous Solution 03-09 19:01:25 Yes (Active) Joy murphy Ambien CR 12.5 MG Oral Tablet Extended Release 2012-11-03 09:16: 02 Yes (Active) Joy Villafuerte n Januvia 100 MG Oral Tablet Yes ; Start Date: ; End Date: (Active) Joy Pedraza MetFORMIN HCl 1000 MG Oral Tablet Yes ; Start Date: ; End Date: 08/14/2013 (Active) Joy Pedraza Atorvastatin Calcium 10 Mg Tablet Atorvastatin Calcium 10 Mg Tablet Yes 20 Today At 9:00PM [facility] Clopidogrel Bisulfate (Plavix) 75 Mg Tablet Clopidogre l Bisulfate (Plavix) 75 Mg Tablet Yes 75 Daily [facility] Divalproex Sodium 250 Mg Tablet. Divalproex Sodium 250 Mg Tablet. Yes 250 Daily [facility] [place] Isosorbide Mononitrate (Isosorbide Mononitrate Er) 30 Mg Tab.er.24h Isosorbide Mononitrate (Isosorbide Mononitrate Er) 30 Mg Tab.er.24h Yes 90 Daily [facility] Jardeiance Jardeiance Yes 25 Daily [facility] Lisinopril 2.5 Mg Tablet Lisinopril 2.5 Mg Tablet Yes 5 Daily [facility] Metoprolol Tartrate 50 Mg Tablet Metoprolol Tartrate 50 Mg Tablet Yes 50 Twice A Day [facility] Mextaxalone Mextaxalone Yes 800 Three Times A Da y [facility] Montelukast Sodium 10 Mg Tablet Montelukast Sodium 10 Mg Tablet Yes 10 Daily@1700 [facility] Nitroglycerin (Nitrostat) 0.4 Mg Tab.subl Nitroglyceri n (Nitrostat) 0.4 Mg Tab.subl Yes .4 As Needed as needed for Pain [facility] Pramipexole Di-Hcl (Pramipexole Dihydrochloride) 0.25 Mg Tablet Pramipexole Di- Hcl (Pramipexole Dihydrochloride) 0.25 Mg Tablet Yes 1 Daily [facility] Promethazine Hcl 25 Mg Tablet Promethazine Hcl 25 Mg Tablet Yes 25 Daily for Nausea [facility] Sitagliptin Phos/Metformin Hcl (Janumet 50-1,000 Mg Ta blet) 1 Each Tablet Sitagliptin Phos/Metformin Hcl (Janumet 50-1,000 Mg Tablet) 1 Each Tablet Yes [address] [facility] Sitagliptin Phos/Metformin Hcl (Janumet 50-1,000 Mg Ta blet) 1 Each Tablet Sitagliptin Phos/Metformin Hcl (Janumet 50-1,000 Mg Tablet) 1 Each Tablet Yes Twice A Day [facility] Tramadol Hcl (Ultram) 50 Mg Tablet Tramadol Hcl (Ultram) 50 Mg Tablet Yes 50 Every 6 Hours as needed for Pain [facility] Atorvastatin Calcium 20 MG Oral Tablet Atorvastatin Calcium 20 M G Oral Tablet Yes [facility] Metoprolol Tartrate 100 MG Oral Tablet Metoprolol Tartrate 100 M G Oral Tablet Yes Q12H TAKE 1 TABLET EVERY 12 HOURS ANDREY LY. [facility] Clopidogrel Bisulfate 75 MG Oral Tablet Clopidogrel Bisulfat e 75 MG Oral Tablet Yes 1 QD TAKE 1 TABLET DAILY. [facility] Divalproex Sodium 250 MG Oral Tablet Delayed Release D ivalproex Sodium 250 MG Oral Tablet Delayed Release Yes Q0.3 333D TAKE 1 TABLET 3 TIMES DAILY. [facility] Mirapex 0.25 MG TABS Mirapex 0.25 MG TABS Yes TAKE 1 TO 2 TABLETS AT BEDTIME [facility] Promethazine HCl - 25 MG Oral Tablet Promethazine HCl - 25 MG Oral Tablet Yes MARIE NOWAK [employer] CUTTER Q6H TAKE 1 TABLET EVERY 6 HOURS NE EDED. [facility] Isosorbide Mononitrate ER 120 MG Oral Tablet Extended Release 24 Hour Isosorbide Mononitrate ER 120 MG Oral Tablet Extended Release 24 Hour Yes 1 QD TAKE 1 TABLET DAILY. [facility] Ezetimibe 10 MG Oral Tablet Ezetimibe 10 MG Oral Tablet Yes 1 QD TAKE 1 TABLET DAILY. [facility] Clindamycin Hcl 150 Mg Capsule, 300 Mg Clindamycin Hcl 150 Mg Ca psule, 300 Mg 2018-02-17 00:00:00 No 300 Every 8 Hours [facility] Sulfamethoxazole/Trimethoprim (Bactrim Ds Tablet) 1 Ea ch Tablet, 1 Tab Oral Sulfamethoxazole/Trimethoprim (Bactrim Ds Tablet) 1 Each Tablet, 1 Tab Oral 2018-02-17 00:00:00 No 1 Twice A Day [facility] Doxepin Hcl 25 Mg Capsule, 5 % Topical Doxepin Hcl 25 Mg Capsule , 5 % Topical 2018-02-14 00:00:00 No 5 Twice A Day for Itch ing Of Foot [facility] Esomeprazole Magnesium (Nexium) 2.5 Mg Suspdr.pkt, 22. 3 Mg Esomeprazole Magnesium (Nexium) 2.5 Mg Suspdr.pkt, 22.3 Mg 2018-02-14 00:00:00 No 22.3 [facility] Fluocinonide/Emollient (Fluocinonide-E 0.05% Cream) 15 Gm Cream..g., 0.1 % Fluocinonide/Emollient (Fluocinonide-E 0.05% Cream) 15 Gm Cream..g., 0.1 % 2018-02-14 00:00:00 No .1 Twice A Day for Derm attis Of Feet [facility] Insuln Asp Prt/Insulin Aspart (Novolog M ix 70-30 Flexpen Syrn) 100 Unit/1 Ml Insuln.pen, Insuln Asp Prt/Insulin Aspart (Novolog M ix 70-30 Flexpen Syrn) 100 Unit/1 Ml Insuln.pen, 2018-02-14 00:00:00 No [facility] Levocetirizine Dihydrochloride 5 Mg Tablet, 5 Mg Oral Levocetirizine Dihydrochloride 5 Mg Tablet, 5 Mg Oral 2018-02-14 00:00:00 No 5 Daily [facility] Lidocaine Hcl/D7.5w/Pf (Lidocaine 5% In D7.5w Ampul) 2 Ml Ampul, 5 % Topical Lidocaine Hcl/D7.5w/Pf (Lidocaine 5% In D7.5w Ampul) 2 Ml Ampul, 5 % Topical 2018-02-14 00:00:00 No 5 Twice A Day for Foot Discomfort [facility] Meclizine Hcl 12.5 Mg Tablet, 25 Mg Oral Meclizine Hcl 12.5 Mg Tablet, 25 Mg Oral 2018-02-14 00:00:00 No 25 Daily as needed fo r Prn [facility] Sitagliptin Phosphate (Januvia) 100 Mg Tablet, 100 Mg Oral Sitagliptin Phosphate (Januvia) 100 Mg Tablet, 100 Mg Oral 2018-02-14 00:00:00 No 100 Daily [facility] Clonidine Hcl 0.1 Mg Tablet, 1 Tab Oral Clonidine Hcl 0.1 Mg Tablet, 1 Tab Oral 2016-09-05 00:00:00 No 1 Twice A Day as needed for Elevated Blood Pressure [facility] Atorvastatin Calcium 10 Mg Tablet, 10 Mg Oral Atorvast atin Calcium 10 Mg Tablet, 10 Mg Oral 2016-09-04 00:00:00 No 10 Today At 9:00 PM [facility] Glimepiride 2 Mg Tablet, 4 Mg Oral Glimepiride 2 Mg Tablet, 4 Mg Oral 2016-09-04 00:00:00 No 4 Am [facility] Glimepiride 1 Mg Tablet, 1 Mg Oral Glimepiride 1 Mg Tablet, 1 Mg Oral 2016-09-04 00:00:00 No 1 Pm [facility] Jardeiance , 10 Mg Oral Jardeiance , 10 Mg Oral 2016-09-04 00:00 :00 No 10 Daily [facility] Metformin Hcl (Metformin Hcl Er) 500 Mg Tab.er.24, 100 0 Mg Oral Metformin Hcl (Metformin Hcl Er) 500 Mg Tab.er.24, 1000 Mg Oral 2016-09-04 00:00:00 No 1000 Twice A Day [facility] Metformin Hcl (Metformin Hcl Er) 500 Mg Tab.er.24h, Me tformin Hcl (Metformin Hcl Er) 500 Mg Tab.er.24h, 2016-09-04 00:00:00 [facility] Ursodiol 300 Mg Capsule, 300 Mg Oral Ursodiol 300 Mg Capsule, 30 0 Mg Oral 2016-09-04 00:00:00 No 300 Daily [facility] Dexlansoprazole (Dexilant) 60 Mg Cap., 60 Mg Oral Dexlansoprazole (Dexilant) 60 Mg Cap, 60 Mg Oral 2015-10-24 00:00:00 No 60 Daily [facility] Flaxseed Oil (Flax Seed Oil) 1,000 Mg Capsule, 1000 Mg Oral Flaxseed Oil (Flax Seed Oil) 1,000 Mg Capsule, 1000 Mg Oral 2015-10-24 00:00:00 No 1000 Daily [facility] Ash Aleman , 2015-10-20 00:00:00 [facility] Lisinopril 40 Mg Tablet, Lisinopril 40 Mg Tablet, 2015-10-20 00: 00:00 [facility] Metformin Hcl 1,000 Mg Tablet, Metformin Hcl 1,000 Mg Tablet, 2015-10-20 00:00:00 [facility] Propranolol Hcl 60 Mg Cap.sa.24h, Propranolol Hcl 60 Mg Cap.sa.2 4h, 2015-10-20 00:00:00 [facility] Sitagliptin Phosphate (Januvia) 100 Mg Tablet, Sitagli ptin Phosphate (Januvia) 100 Mg Tablet, 2015-10-20 00:00:00 [facility] Sumatriptan Succinate 100 Mg Tablet, Sumatriptan Succinate 100 M g Tablet, 2015-10-20 00:00:00 [facility] Zolpidem Tartrate 12.5 Mg Tab.mphase, Zolpidem Tartrate 12.5 Mg Tab.mphase, 2015-10-20 00:00:00 No [facility] Immunizations Ordered Immunization Name Filled Immunization Name Date Status Comments Source Influenza 2017-11-21 00:00:00 Completed Unive rsity [facility] Influenza 2016-12-04 00:00:00 Completed Unive rsity [facility] Influenza 2016-01-19 00:00:00 Completed Unive rsity [facility] Fluvirin INJ 2014-01-24 09:23:00 Completed Uni versity [facility] Influenza 2009-12-31 00:00:00 Completed Unive rsity [facility] Vital Signs Vital Name Observation Time Observation Value Comments Source Systolic blood pressure 2019-06-22 08:00:00 157 mm[Hg] Rajiv Wallace Diastolic blood pressure 2019-06-22 08:00:00 86 mm[Hg] Rajiv Wallace Heart rate 2019-06-22 08:00:00 71 /min Rajiv Wallace Respiratory rate 2019-06-22 08:00:00 19 /min Wily Wallace Body height 2019-06-22 08:00:00 160 cm Rajiv Wallace Body weight 2019-06-22 08:00:00 81.647 kg Rajiv Wallace BMI 2019-06-22 08:00:00 31.89 kg/m2 Rajiv Wallace Oxygen saturation in Arterial blood by Pulse oximetry 06-21 08:00:00 100 /min Rajiv Wallace BP Systolic 2018-10-30 17:32:00 130 mm[Hg] Location: LUE; Positi on: Sitting [facility] BP Diastolic 2018-10-30 17:32:00 97 mm[Hg] Location: LUE; Positi on: Sitting [facility] Heart Rate 2018-10-30 17:32:00 91 /min [facility] BP Systolic 2018-10-30 17:29:00 151 mm[Hg] Location: LUE; Positi on: Sitting [facility] BP Diastolic 2018-10-30 17:29:00 99 mm[Hg] Location: LUE; Positi on: Sitting [facility] Height 2018-10-30 17:29:00 63 [in_us] [facility] Temperature 2018-10-30 17:29:00 97.7 [degF] Method: Temporal [facility] Heart Rate 2018-10-30 17:29:00 97 /min [facility] Respiration Rate 2018-10-30 17:29:00 16 /min [facility] BP Systolic 2018-05-31 14:16:00 116 mm[Hg] Location: LUE; Positi on: Sitting [facility] BP Diastolic 2018-05-31 14:16:00 76 mm[Hg] Location: S[place]OS[place]; Positi on: Sitting [facility] Height 2018-05-31 14:16:00 63 [in_us] [facility] Weight 2018-05-31 14:16:00 181.375 [lb_av] [facility] Body Mass Index Calculated 2018-05-31 14:16:00 32.13 kg/m2 [facility] Heart Rate 2018-05-31 14:16:00 66 /min [facility] O2 SAT 2018-04-29 09:34:00 97 % Source: RA [facility] BP Systolic 2018-04-29 09:31:00 106 mm[Hg] Location: ERI; Positi on: Sitting [facility] BP Diastolic 2018-04-29 09:31:00 68 mm[Hg] Location: ERI; Positi on: Sitting [facility] Height 2018-04-29 09:31:00 63 [in_us] [facility] Weight 2018-04-29 09:31:00 177.25 [lb_av] Univer [facility] Body Mass Index Calculated 2018-04-29 09:31:00 31.4 kg/m2 [facility] Temperature 2018-04-29 09:31:00 97.5 [degF] Method: Temporal [facility] Heart Rate 2018-04-29 09:31:00 80 /min [facility] Respiration Rate 2018-04-29 09:31:00 16 /min [facility] BP Systolic 2018-03-04 11:29:00 134 mm[Hg] Location: LUE; Positi on: Sitting [facility] BP Diastolic 2018-03-04 11:29:00 84 mm[Hg] Location: LUE; Positi on: Sitting [facility] Height 2018-03-04 11:29:00 63 [in_us] Universi ty [facility] Weight 2018-03-04 11:29:00 179.125 [lb_av] [facility] Body Mass Index Calculated 2018-03-04 11:29:00 31.73 kg/m2 [facility] Temperature 2018-03-04 11:29:00 97.3 [degF] Method: Temporal [facility] Heart Rate 2018-03-04 11:29:00 79 [facility]min [facility] Respiration Rate 2018-03-04 11:29:00 16 /min [facility] BP Systolic 2018-02-20 17:51:00 133 mm[Hg] Location: S[place]OS[place]; Positi on: Sitting [facility] BP Diastolic 2018-02-20 17:51:00 83 mm[Hg] Location: [place]; Positi on: Sitting [facility] Height 2018-02-20 17:51:00 63 [in_us] Universi ty [facility] Weight 2018-02-20 17:51:00 179 [lb_av] [facility] Body Mass Index Calculated 2018-02-20 17:51:00 31.71 kg/m2 [facility] Temperature 2018-02-20 17:51:00 97.9 [degF] Method: [facility]poral [facility] Heart Rate 2018-02-20 17:51:00 83 [facility]min [facility] Respiration Rate 2018-02-20 17:51:00 16 /min [facility] BP Systolic 2018-02-13 16:21:00 127 mm[Hg] Location: SANTOSHE; Positi on: Sitting [facility] BP Diastolic 2018-02-13 16:21:00 77 mm[Hg] Location: LUE; Positi on: Sitting [facility] Height 2018-02-13 16:21:00 63 [in_us] Universi ty [facility] Weight 2018-02-13 16:21:00 184.0 [lb_av] Univers ity [facility] Body Mass Index Calculated 2018-02-13 16:21:00 32.59 kg/m2 [facility] Temperature 2018-02-13 16:21:00 98.1 [degF] Method: Temporal [facility] Heart Rate 2018-02-13 16:21:00 89 /min Universi ty [facility] Respiration Rate 2018-02-13 16:21:00 16 /min [facility] BP Systolic 2018-02-09 15:35:00 126 mm[Hg] Location: LUE; Positi on: Sitting [facility] BP Diastolic 2018-02-09 15:35:00 71 mm[Hg] Location: LURenae; Positi on: Sitting [facility] Height 2018-02-09 15:35:00 63 [in_us] Universi ty [facility] Weight 2018-02-09 15:35:00 182.4 [lb_av] [facility] ity [facility] Body Mass Index Calculated 2018-02-09 15:35:00 32.31 kg/m2 [facility] Heart Rate 2018-02-09 15:35:00 93 /min Universi ty [facility] Temperature 2018-02-09 15:35:00 97.7 [degF] Method: Temporal [facility] Respiration Rate 2018-02-09 15:35:00 16 /min [facility] BP Systolic 2018-02-07 18:39:00 130 mm[Hg] Location: RUE; Positi on: Sitting [facility] BP Diastolic 2018-02-07 18:39:00 84 mm[Hg] Location: RUE; Positi on: Sitting [facility] Height 2018-02-07 18:39:00 63 [in_us] [facility] Weight 2018-02-07 18:39:00 185.125 [lb_av] Unive [facility] Body Mass Index Calculated 2018-02-07 18:39:00 32.79 kg/m2 [facility] Temperature 2018-02-07 18:39:00 97.8 [degF] Method: Temporal [facility] Respiration Rate 2018-02-07 18:39:00 16 /min [facility] Heart Rate 2018-02-07 18:39:00 93 /min [facility] BP Systolic 2018-01-19 15:58:00 150 mm[Hg] [facility] BP Diastolic 2018-01-19 15:58:00 92 mm[Hg] [facility] Heart Rate 2018-01-19 15:58:00 61 /min [facility] BP Systolic 2018-01-19 15:57:00 152 mm[Hg] Location: RITIKA Positi on: Sitting [facility] BP Diastolic 2018-01-19 15:57:00 93 mm[Hg] Location: ERI; Positi on: Sitting [facility] Heart Rate 2018-01-19 15:57:00 90 /min [facility] Height 2018-01-19 15:57:00 63 [in_us] [facility] Weight 2018-01-19 15:57:00 183.375 [lb_av] Unive [facility] Body Mass Index Calculated 2018-01-19 15:57:00 32.48 kg/m2 [facility] Temperature 2018-01-19 15:57:00 97.6 [degF] Method: Temporal [facility] Respiration Rate 2018-01-19 15:57:00 16 /min [facility] BP Systolic 2017-12-20 16:10:00 137 mm[Hg] Location: ERI; Positi on: Sitting [facility] BP Diastolic 2017-12-20 16:10:00 87 mm[Hg] Location: RITIKA Positi on: Sitting [facility] Height 2017-12-20 16:10:00 63 [in_us] [facility] Weight 2017-12-20 16:10:00 182.375 [lb_av] Unive [facility] Body Mass Index Calculated 2017-12-20 16:10:00 32.31 kg/m2 [facility] Heart Rate 2017-12-20 16:10:00 80 /min [facility] Weight 2017-09-29 17:22:00 180.9 [lb_av] [facility] Body Mass Index Calculated 2017-09-29 17:22:00 32.05 kg/m2 [facility] BP Systolic 2017-09-19 16:26:00 145 mm[Hg] Location: LUE; Positi on: Sitting [facility] BP Diastolic 2017-09-19 16:26:00 88 mm[Hg] Location: LUE; Positi on: Sitting [facility] Height 2017-09-19 16:26:00 63 [in_us] [facility] Weight 2017-09-19 16:26:00 179.125 [lb_av] [facility] Body Mass Index Calculated 2017-09-19 16:26:00 31.73 kg/m2 [facility] Heart Rate 2017-09-19 16:26:00 86 /min [facility] BP Systolic 2017-06-20 16:03:00 133 mm[Hg] Location: LUE; Positi on: Sitting [facility] BP Diastolic 2017-06-20 16:03:00 84 mm[Hg] Location: LUE; Positi on: Sitting [facility] Height 2017-06-20 16:03:00 63 [in_us] [facility] Weight 2017-06-20 16:03:00 184.0625 [lb_av] [facility] Body Mass Index Calculated 2017-06-20 16:03:00 32.61 kg/m2 [facility] Heart Rate 2017-06-20 16:03:00 88 /min [facility] BP Systolic 2017-03-18 16:01:00 118 mm[Hg] Location: LLE; Positi on: Sitting [facility] BP Diastolic 2017-03-18 16:01:00 80 mm[Hg] Location: LLE; Positi on: Sitting [facility] Height 2017-03-18 16:01:00 63 [in_us] [facility] Weight 2017-03-18 16:01:00 182.0625 [lb_av] [facility] Body Mass Index Calculated 2017-03-18 16:01:00 32.25 kg/m2 [facility] Heart Rate 2017-03-18 16:01:00 81 /min [facility] BP Systolic 2017-02-19 10:26:00 130 mm[Hg] Location: LUE; Positi on: Sitting [facility] BP Diastolic 2017-02-19 10:26:00 85 mm[Hg] Location: LUE; Positi on: Sitting [facility] Height 2017-02-19 10:26:00 64 [in_us] [facility] Weight 2017-02-19 10:26:00 180.9 [lb_av] [facility] ity [facility] Body Mass Index Calculated 2017-02-19 10:26:00 31.05 kg/m2 [facility] Temperature 2017-02-19 10:26:00 97.8 [degF] Method: Temporal [facility] Heart Rate 2017-02-19 10:26:00 76 /min Location: L Brachial Artery; [facility] Respiration Rate 2017-02-19 10:26:00 18 /min [facility] Procedures Procedure Date / Time Performed Performing Clinician Lela garrett CV CARDIAC PET STRESS TEST 2019-06-22 09:15:40 Wilman Dent CARDIAC PET MYOCARDIAL PERFUSION IMAGING 2019-06-22 09:15:40 Wilman Dent ECG 12-LEAD 2019-06-14 07:14:45 Wilman Dent on [facility] TROPONIN 2019-06-13 13:35:00 Wilman Dent on [facility] LIPID PANEL 2019-06-13 13:35:00 Wilman Dent [facility] [[facility]] TSH, 3RD GENERATION W/REFLEX TO FT4 2018-10-30 00:00:00 [facility] [QL] CBC (INCLUDES DIFF/PLT) 2018-10-30 00:00:00 [facility] [QL] CMP W/EGFR 2018-10-30 00:00:00 [facility] [] LIPID PANEL WITH REFLEX TO DIRECT LDL 2018-10-30 00:00:00 [facility] [[facility]] MICROALBUMIN, RANDOM URINE (W/CREATININE) 2018-10-30 00:00 :00 [facility] Ultrasound, renal 2018-03-06 00:00:00 MATTY JHA [facility] X-ray of chest, two views 2018-03-05 00:00:00 CIRA CORNEJO I [facility] Computed tomography of abdomen and pelvis with contrast 2017 00:00:00 SWEET, LAIRD A [facility] US Gallbladder 2018-02-14 00:00:00 ANTWAN PHIPPS [facility] XRAY Ankle 3 views [id number] 2018-02-13 00:00:00 Uni [facility] XRAY Foot series [id number] 2018-02-13 00:00:00 Unive [facility] US Extremity lower venous Doppler Unilat [id number] 2018-02-07 00:00: 00 [facility] [[facility]] CMP W/EGFR 2017-06-20 00:00:00 [facility] [[facility]] MICROALBUMIN, RANDOM URINE (W/CREATININE) 2017-06-20 00:00 :00 [facility] [[facility]] LIPID PANEL 2017-06-20 00:00:00 [facility] History of Cath Stent Placement [facility] History of Wrist Surgery [facility] History of Back Surgery [facility] History of Cholecystectomy [facility] Plan of Care Planned Activity Planned Date Details Comments Source Future Scheduled Test 2019-12-06 00:00:00 INFLUENZA VACCINE [code = INFLUENZA VACCINE] [facility] Scheduled Test 2018-02-28 00:00:00 COLONOSCOPY SCREEN ING [code = COLONOSCOPY SCREENING] [facility] Scheduled Test 2018-02-28 00:00:00 SHINGLES VACCINES (#1) [code = SHINGLES VACCINES (#1)] [facility] Scheduled Test 2013-07-07 16:00:13 Plan of Care [code = 1877 6-5] [facility] Scheduled Test 2013-05-16 18:31:41 Plan of Care [code = 1877 6-5] [facility] Scheduled Test 1978-02-28 00:00:00 DIABETIC FOOT EXAM [code = DIABETIC FOOT EXAM] [facility] Scheduled Test 1978-02-28 00:00:00 URINE MICROALBUMIN [code = URINE MICROALBUMIN] [facility] Scheduled Test 1968 00:00:00 DIABETIC RETINAL E YE EXAM [code = DIABETIC RETINAL EYE EXAM] [facility] Encounters Start Date/Time End Date/Time Encounter Type Admission Type [facility] Care Department Encounter ID Source 2019-10-11 15:00:00 2019-10-11 15:00:00 Appointment; MOHEYSARA LANDEROS M.D. MOHEYUDDIN, AMINA, M.D. [facility] [id number] [facility] 2019-09-17 16:00:00 2019-09-17 16:00:00 Appointment; SARA ESTEBAN M.D. MOHEYUDDIN, AMINA, M.D. [facility] [id number] [facility] 2019-06-22 00:00:00 2019-06-22 00:00:00 Outpatient THOMAS DENT [facility] [id number] [place] [facility] 2019-06-14 00:00:00 2019-06-14 00:00:00 Outpatient THOMAS DENT [facility] [id number] [facility] 2019-06-14 00:00:00 2019-06-14 00:00:00 Outpatient THOMAS DENT [facility] [id number] [facility] 2019-06-13 00:00:00 2019-06-13 00:00:00 Outpatient THOMAS DENT [facility] [id number] [facility] 2018-10-30 18:45:00 2018-10-30 18:45:00 Appointment; MARIE NOWAK AP RN TRAN, THUY, APRN [facility] [id number] [facility] 2018-05-31 14:00:00 2018-05-31 14:00:00 Appointment; REZA KANG M.D. NASSIF, JULIA, M.D. [facility] [address] [id number] [facility] 2018-04-29 09:45:00 2018-04-29 09:45:00 Appointment; MIGUEL A HOPKINS P.A. SPOONER, JOSEPH, P.A. [facility] [id number] [facility] 2018-03-05 19:24:00 2018-03-13 16:14:00 Discharged Inpatient 1 JITENDRA SUGGS [facility] [id number] [facility] 2018-03-04 13:00:00 2018-03-04 13:00:00 Appointment; ADONIS JAMES M.D. MURPHY, THOMAS, M.D. [facility] [address] [id number] [facility] 2018-02-20 18:45:00 2018-02-20 18:45:00 Appointment; MARIE NOWAK AP RN TRAN, THUY, APRN [facility] [id number] [facility] 2018-02-14 12:04:00 2018-02-17 14:49:00 Discharged Inpatient 1 JITENDRA SUGGS [facility] [id number] [facility] 2018-02-13 16:15:00 2018-02-13 16:15:00 Appointment; MARIE NOWAK AP RN TRAN, THUY, APRN [facility] [id number] [facility] 2018-02-09 15:45:00 2018-02-09 15:45:00 Appointment; MARIE NOWAK AP RN TRAN, THUY, APRN [facility] [id number] [facility] 2018-02-07 19:00:00 2018-02-07 19:00:00 Appointment; MARIE NOWAK AP RN TRAN, THUY, APRN [facility] [id number] [facility] 2018-01-19 16:15:00 2018-01-19 16:15:00 Appointment; MIGUEL A HOPKINS P.A. SPOONER, JOSEPH, P.A. [facility] [id number] [facility] 2017-12-20 16:00:00 2017-12-20 16:00:00 Appointment; REZA KANG M.D. NASSIF, JULIA, M.D. [facility] [address] [id number] [facility] 2017-10-13 08:35:00 2017-10-13 08:35:00 Outpatient Lucinda MALONE [id number] [employer] 2017-10-10 08:40:00 2017-10-10 08:40:00 Outpatient Lucinda Combs [place] [id number] [employer]Works 2017-10-10 08:00:00 2017-10-10 08:00:00 Appointment; BEVERLY ALONSO RD WRIGHT, TISH, RD [facility] [id number] [facility] 2017-09-29 15:00:00 2017-09-29 15:00:00 Appointment; BEVERLY ALONSO RD WRIGHT, TISH, RD [facility] [id number] [facility] 2017-09-19 16:00:00 2017-09-19 16:00:00 Appointment; REZA KANG M.D. NASSIF, JULIA, M.D. [facility] [address] [id number] [facility] 2017-06-20 16:00:00 2017-06-20 16:00:00 Appointment; REZA KANG M.D. NASSIF, JULIA, M.D. [facility] [address] [id number] [facility] 2017-04-22 12:40:00 2017-04-22 12:40:00 Outpatient Lucinda MALONE [id number] [employer] 2017-03-18 16:00:00 2017-03-18 16:00:00 Appointment; REZA KANG M.D. NASSIF, JULIA, M.D. [facility] [address] [id number] [facility] 2017-02-19 10:15:00 2017-02-19 10:15:00 Appointment; ADONIS JAMES M.D. MURPHY, THOMAS, M.D. [facility] [address] [id number] [facility] 2017-01-24 08:27:00 2017-01-24 08:27:00 Outpatient Lucinda Combs MD [place] [id number] [employer]Works 2016-12-16 16:00:00 2016-12-16 16:00:00 Appointment; REZA KANG M.D. NASSIF, JULIA, M.D. [facility] [address] [id number] [facility] 2016-08-03 16:00:00 2016-08-03 16:00:00 Appointment; REZA KANG M.D. NASSIF, JULIA, M.D. [facility] UTP [id number] [facility] 2016-07-26 13:51:00 2016-07-26 13:51:00 Outpatient Lucinda MALONE [id number] [employer] 2016-07-26 07:59:00 2016-07-26 07:59:00 Outpatient Lucinda Combs MD [place] [id number] e[employer]Works 2016-07-26 07:57:00 2016-07-26 07:57:00 Outpatient Lucinda Combs MD [place] [id number] e[employer]Works 2016-06-22 16:02:00 2016-06-22 16:02:00 Outpatient Lucinda Combs MD [place] [id number] e[employer]Works 2016-06-16 10:55:00 2016-06-16 10:55:00 Outpatient Lucinda Combs MD [place] [id number] [employer]Works 2016-05-28 13:39:00 2016-05-28 13:39:00 Outpatient Lucinda Combs MD [place] [id number] e[employer]Works 2016-05-28 09:31:00 2016-05-28 09:31:00 Outpatient Lucinda Combs MD [place] [id number] [employer]Works 2016-05-03 14:00:00 2016-05-03 14:00:00 Appointment; REZA KANG M.D. NASSIF, JULIA, M.D. [facility] UTP [id number] [facility] 2016-03-25 18:45:00 2016-03-25 18:45:00 Appointment; MARIE NOWAK NP TRAN, THUY, NP [facility] UTP [id number] [facility] 2016-03-25 13:00:00 2016-03-25 13:00:00 Appointment; DIEGO BERRIOS M.D. BYRD, MICHAEL, M.D. [facility] UTP [id number] [facility] 2016-02-23 08:00:00 2016-02-23 08:00:00 Appointment; ERZA KANG M.D. NASSIF, JULIA, M.D. [facility] UTP [id number] [facility] 2015-11-13 15:30:00 2015-11-13 15:30:00 Appointment; REZA KANG M.D. NASSIF, JULIA, M.D. [facility] UTP [id number] [facility] 2015-10-08 09:30:00 2015-10-08 09:30:00 Appointment; RODDY HALEY P.A. CRUZ, LETICIA, P.A. [facility] UTP [id number] [facility] 2015-09-23 15:45:00 2015-09-23 15:45:00 Appointment; DIEGO BERRIOS M.D. BYRD, MICHAEL, M.D. [facility] UTP [id number] [facility] 2015-09-15 15:00:00 2015-09-15 15:00:00 Appointment; DIEGO BERRIOS M.D. BYRD, MICHAEL, M.D. [facility] UTP [id number] [facility] 2015-08-16 09:15:00 2015-08-16 09:15:00 Appointment; ADONIS JAMES M.D. MURPHY, THOMAS, M.D. [facility] UTP [id number] [facility] 2015-08-07 14:00:00 2015-08-07 14:00:00 Appointment; REZA KANG M.D. NASSIF, JULIA, M.D. [facility] UTP [id number] [facility] 2015-07-26 10:15:00 2015-07-26 10:15:00 Appointment; ADONIS JAMES M.D. MURPHY, THOMAS, M.D. [facility] UTP [id number] [facility] 2015-05-14 14:00:00 2015-05-14 14:00:00 Appointment; REZA KANG M.D. NASSIF, JULIA, M.D. [facility] UTP [id number] [facility] 2015-05-10 10:00:00 2015-05-10 10:00:00 Appointment; KALI KERNS M.D. ECO, LOURDES, M.D. [facility] UTP [id number] [facility] 2015-04-12 09:00:00 2015-04-12 09:00:00 Appointment; BOONE MERINO NP HOANG, CHRISTINA, NP UTP UTP [id number] [facility] 2015-03-12 15:00:00 2015-03-12 15:00:00 Appointment; BEVERLY ALONSO, BEVERLY NAQVI RD UTP UTP [id number] [facility] 2015-02-12 14:00:00 2015-02-12 14:00:00 Appointment; REZA KANG M.D. NASSIF, JULIA, M.D. [facility] UTP [id number] [facility] 2015-02-01 09:30:00 2015-02-01 09:30:00 Appointment; ADONIS JAMES M.D. MURPHY, THOMAS, M.D. [facility] UTP [id number] [facility] 2014-11-12 12:28:00 2014-11-12 12:28:00 [place] [id number] [employer] 2013-10-29 13:42:00 2013-10-29 13:42:00 [place] [id number] [employer] 2013-10-09 11:56:00 2013-10-09 11:56:00 [place] [id number] [employer] 2013-07-07 11:00:14 2013-07-07 11:00:13 Outpatient [facility] [id number] 2013-07-04 13:47:50 2013-07-04 13:47:49 Outpatient [facility] [id number] 2013-06-23 11:30:18 2013-06-23 11:30:18 Outpatient [facility] [id number] 2013-05-31 17:03:52 2013-05-31 17:03:51 Outpatient [facility] [id number] 2013-05-16 13:31:41 2013-05-16 13:31:41 Outpatient [facility]IE [facility] [id number] 2013-05-10 12:16:50 2013-05-10 12:16:49 Outpatient [facility]IE [facility] [id number] 2013-05-08 10:17:42 2013-05-08 10:17:42 Outpatient IE IE [id number] 2013-05-04 16:34:13 2013-05-04 16:34:13 Outpatient IE IE [id number] 2013-04-27 09:17:29 2013-04-27 09:17:29 Outpatient IE IE [id number] 2013-03-09 13:01:25 2013-03-09 13:01:25 [id number] 2012-11-03 04:16:24 2012-11-03 04:16:02 [facility] [id number] Results Test Description Test Time Test Comments Results Result Comments Source Cv stress test 2019-06-26 05:37:38 Test Item Resting HR (test code = 8580505551) 72 Resting BP (test code = 5149947133) 130 Peak MET Achieved (test code = 4780677846) 1 Protocol Name (test code = 6742622532) Lexiscan Time in Exercise Phase (test code = 5713846016) 00:01:00 Max Systolic BP (test code = 0945679281) 148 Max Diastolic BP (test code = 7687949658) 70 Max Heart Rate (test code = 8669102593) 100 Max Predicted Heart Rate (test code = 0410480432) 169 Target HR Formula (test code = 0152193025) (220 - Age)*100% Test Indication (test code = 7465964738) chest pain Arrhy During Ex (test code = 7146609389) ECG Interp Before EX (test code = 3261032977) ECG Interp During Ex (test code = 8172924675) Ex Summary Comment (test code = 7217468092) Overall HR Response to Exercise (test code = 4699306958) Overall BP Response To Exercise (test code = 0969027214) Reason for Termination (test code = 4069473783) Protocol Complete Stress Test Impression (test code = 1707138131) -Wavef orm interpreted in report associated with image study. No interpretation is provided as part of this Stress ECG report.- Vance Marion Cardiac PET Myocardial Perfusion Wyuuifn1776-67-50 16:42:43 Interface, Radiology Results In - 06/26/2019 6:38 PM CDTSee PDF file for full [place] WallaceLipid getcz3965-84-99 14:45:00* Test Item Value Reference Range Interpretation Comments Cholesterol, total (test code = 2093-3) 132 mg/dL <200 HDL cholesterol (test code = 2085-9) 38 mg/dL > OR = 40 L Triglycerides (test code = 2571-8) 272 mg/dL <150 H If a non-fasting specimen was collected, considerrepeat triglyceride testing on a fasting specimenif clinically indicated. Fatimah et al. J. of Clin. Lipidol. 2015;9:129-169. LDL cholesterol calculated (test code = 01950-3) 62 mg/dL (calc) Reference range: <100 Desirable range <100 mg/dL for primary prevention; <70 mg/dL for patients with CHD or diabetic patients with > or = 2 CHD risk factors. LDL-C is now calculated using the Ernie-Veronica calculation, which is a validated novel method providing better accuracy than the Friedewald equation in the estimation of LDL-C. Ernie SS et al. CASSIE. 2013;310(19): 7171-6556 (http:/ /education.Spool/faq/ACF631) Cholesterol/HDL ratio (test code = 9830-1) 3.5 <5.0 (calc) Non-HDL cholesterol (test code = 93172-8) 94 <130 mg/dL ( calc) For patients with diabetes plus 1 major ASCVD risk factor, treating to a non-HDL-C goal of <100 mg/dL (LDL-C of <70 mg/dL) is considered a therapeutic option. RAC (test code = RAC) Performing Organization Info rmation: Site ID: RGA [facility] Address: [address] [place] [id number] Director: Ian Christian Lab Interpretation (test code = 06954-8) Abnormal Rajiv WallaceNxmottflpYpkbcnox6142-51-00 14:45:00* Test Item Value Reference Range Interpretation Comments Troponin (test code = 03420-1) <0.01 < OR = 0.05 ng/mL In accord with published recommendations, serialtesting of troponin I at intervals of 2 to 4 hoursfor up to 12 to 24 hours is suggested in order tocorroborate a single troponin I result. An elevatedtroponin alone is not sufficient to make thediagnosis of CO. For additional information, please refer to http://education.BevSpot/faq/RHO903 (This link is being provided for informational/educational purposes only.) RAC (test code = RAC) Performing Organization Info rmation: Site ID: RGA Name: [facility] Address: [address] [place] [phone] Director: Ian Stern 12 bzlj8046-52-90 09:36:42* Test Item Value Reference Range Interpretation Comments Ventricular rate (test code = 253) 68 Atrial rate (test code = 255) 68 AK interval (test code = 266) 156 QRSD interval (test code = 260) 110 QT interval (test code = 264) 408 QTC interval (test code = 265) 433 P axis 1 (test code = 267) 38 QRS axis 1 (test code = 268) -25 T wave axis (test code = 270) -19 EKG impression (test code = 273) Normal sinus rhythm-C annot rule out Inferior infarct , age undetermined-Abnormal ECG-In automated comparison with ECG of 05-JUL-2018 11:11,-Left anterior fascicular block is no longer present-T wave inversion now evident in Inferior leads- aRjiv Gonzales LEFT AP [id number] 09:16:00 [place] [address] Patient Name: HANG BURKS MR #: [id number] : 1970 Age/Sex: 48/M Req #: [id number] Adm Physician: Ordered by: DREW ONEAL DPM Report #: [id number] Location: OR Room/Bed: Procedure: [id number] DX/FOOT LEFT AP LAT Exam Date: 02/08/19 Exam Time: 901 REPORT STATUS: Signed Left foot, 2 views Clinical indications: Status post bunion/arthrodesis Co mparison: None Findings: AP and lateral views of the left foot were obtai jairo. Overlying cast material is present. Patient is status post left first metatarsal osteotomy with pin and screw fixation. A K pin traverses the fourth phalanx. A polymerization is normal. The joint spaces are maintained. Im pression: Postoperative changes as described above. Signed by: Jose box MD on 02/08/2019 9:21 AM Dictated By: JOSE MOHR MD [facility] Signed By: JOSE MOHR MD on 02/08/19920 Transcribed By: VIOLET marie 02/08/19920 COPY TO: DREW ONEAL DPM [] LIPID PANEL WITH REFLEX TO DIRECT [id number] 11:16:00* Test Item Value Reference Range Interpretation Comments CHOLESTEROL, TOTAL; Normal (test code = 2093-3) 167 mg/dl <200 N HDL CHOLESTEROL; Normal (test code = 2085-9) 50 mg/dl >40 N TRIGLYCERIDES; Above High Threshold (test code = 2571-8) 198 mg/dl <150 LDL-CHOLESTEROL; Normal (test code = 97663-0) 87 {MG/DL TRISH} N Reference range: <100 Desirable range <100 mg/dL for primary prevention; <70 mg/dL for patients with CHD or diabetic patients with > or = 2 CHD risk factors. LDL-C is now calculated using the Sanjay calculation, which is a validated novel method providing better accuracy than the Friedewald equation in the estimation of LDL-C. Ernie SS et al. CASSIE. 2013;310(19): 2088-5376 (http ://education.Spool/faq/YRO276) CHOL/HDLC RATIO (test code = CHOL/HDLC RATIO) 3.3 {CALC} <5.0 N NON HDL CHOLESTEROL (test code = NON HDL CHOLESTEROL) 117 {MG/DL C AL} <130 N For patients with diabetes plus 1 major ASCVD risk factor, treating to a non-HDL-C goal of <100 mg/dL (LDL-C of <70 mg/dL) is considered a therapeutic option. [facility]] MICROALBUMIN, RANDOM URINE (W/CREATININE) 2018-11-11 11:16:00* Test Item Value Reference Range Interpretation Comments CREATININE, RANDOM URINE (test code = CREATININE, RANDOM URINE) 92 mg/dl 20-320 N MICROALBUMIN (test code = MICROALBUMIN) 1.2 mg/dl N Reference RangeNot established MICROALBUMIN/CREATININE RATIO, RANDOM UR INE (test code = MICROALBUMIN/CREATININE RATIO, RANDOM URINE) 13 {MCG/MG CRE} <30 N The ADA de fines abnormalities in albuminexcretion as follows: Category Result (mcg/mg creatinine) Normal <30Microalbuminuria 30-299 Clinical albuminuria > OR = 300 The ADA recommends that at least two of threespecimens collected within a 3-6 month period beabnormal before considering a patient to bewithin a diagnostic category. [facility]] CMP W/[id number] 11:16:00* Test Item Value Reference Range Interpretation Comments GLUCOSE; Above High Threshold (test code = 1547-9) 120 mg/dl 65- 99 Fasting reference interval For someone without known diabetes, a glucose valuebetween 100 and 125 mg/dL is consistent withprediabetes and should be confirmed with afollow-up test. UREA NITROGEN (BUN) (test code = UREA NITROGEN (BUN)) 12 mg/dl 7-25 N CREATININE (test code = CREATININE) 1.10 mg/dl 0.70-1.33 N For patients >49 years of age, the reference limitfor Creatinine is approximately 13% higher for peopleidentified as -Welsh. eGFR NON- (test code = eGFR NON-LISHA N MOLDOVAN) 78 {ML/MIN/1.7} > OR = 60 N eGFR (test code = eGFR ) 90 {ML/MIN/1.7} > OR = 60 N BUN/CREATININE RATIO (test code = BUN/CREATININE RATIO) NOT APPLICA BLE 6-22 SODIUM (test code = SODIUM) 139 mmol/L 135-146 N POTASSIUM (test code = POTASSIUM) 4.8 mmol/L 3.5-5.3 N CHLORIDE (test code = CHLORIDE) 101 mmol/L 98-110 N CARBON DIOXIDE (test code = CARBON DIOXIDE) 27 mmol/L 20-32 N CALCIUM (test code = CALCIUM) 10.3 mg/dl 8.6-10.3 N PROTEIN, TOTAL (test code = PROTEIN, TOTAL) 7.8 g/dl 6.1-8.1 N ALBUMIN (test code = ALBUMIN) 4.4 g/dl 3.6-5.1 N GLOBULIN (test code = GLOBULIN) 3.4 {G/DL CALC} 1.9-3.7 N ALBUMIN/GLOBULIN RATIO (test code = ALBUMIN/GLOBULIN RATIO) 1.3 {CALC} 1.0-2.5 N BILIRUBIN, TOTAL; Normal (test code = 09570-6) 0.7 mg/dl 0.2-1.2 N ALKALINE PHSPHATASE (test code = ALKALINE PHSPHATASE) 73 u/l 40-115 N AST; Normal (test code = 1916-6) 25 u/l 10-35 N ALT; Normal (test code = 1742-6) 31 u/l 9-46 N [facility]] CBC (INCLUDES DIFF/PLT)2018-11-11 11:16:00* Test Item Value Reference Range Interpretation Comments WHITE BLOOD CELL COUNT (test code = WHITE BLOOD CELL COUNT) 7.6 {Thousand/u} 3.8-10.8 N RED BLOOD CELL COUNT (test code = RED BLOOD CELL COUNT) 5.07 {Million/uL} 4.20-5.80 N HEMAGLOBIN; Normal (test code = 14984-3) 15.6 g/dl 13.2-17.1 N HEMATOCRIT; Normal (test code = 4544-3) 45.3 % 38.5-50.0 N MCV; Normal (test code = 787-2) 89.3 fL 80.0-100.0 N MCHC; Normal (test code = 95502-2) 34.4 g/dl 32.0-36.0 N RDW; Normal (test code = 788-0) 13.8 % 11.0-15.0 N PLATELET COUNT; Normal (test code = 777-3) 211 {Thousand/u} 140-400 N MPV; Normal (test code = 39209-6) 11.8 fL 7.5-12.5 N ABSOLUTE NEUTROPHILS (test code = ABSOLUTE NEUTROPHILS) 4628 {cells/uL} 3872-4548 N ABSOLUTE LYMPHOCYTES (test code = ABSOLUTE LYMPHOCYTES) 2143 {cells/uL} 850-3900 N ABSOLUTE MONOCYTES (test code = ABSOLUTE MONOCYTES) 684 {cells/uL} 200-950 N ABSOLUTE EOSINOPHILS (test code = ABSOLUTE EOSINOPHILS) 91 {cells/u L} 15-500 N ABSOLUTE BASOPHILS (test code = ABSOLUTE BASOPHILS) 53 {cells/uL} 0 -200 N NEUTROPHILS (test code = NEUTROPHILS) 60.9 % N LYMPHOCYTES (test code = LYMPHOCYTES) 28.2 % N MONOCYTES; Normal (test code = 66914-6) 9.0 % N EOSINOPHILS; Normal (test code = 69854-2) 1.2 % N BASOPHILS; Normal (test code = 76525-2) 0.7 % N [facility][QLH] TSH, 3RD GENERATION W/REFLEX TO FT4 2018-11-11 11:16:00* Test Item Value Reference Range Interpretation Comments TSH, 3RD GENERATION W/REFLEX TO FT4 (kareen t code = TSH, 3RD GENERATION W/REFLEX TO FT4) 1.14 {MIU/L} 0.40-4.50 N [facility][O] Hemoglobin A1c (in office)2018-10-30 18:07:00 * Test Item Value Reference Range Interpretation Comments HEMOGLOBIN A1c (test code = 4548-4) 8.2 [facility]icians[facility] ([facility] In [facility])2018-10-30 18:06:00* Test Item Value Reference Range Interpretation Comments Glucose POC Lifescan (test code = Glucose POC Lifescan) 152 [facility] PhysiciansFOOT RIGHT AP [id number] 09:49:[address] [address] Patient Name: HANG BURKS MR #: [id number] : Age/Sex: 48/M Req #: [id number] Adm Physician: Ordered by: DREW ONEAL DPSarah Report #: [id number] Location: OR Room/Bed: Procedure: [id number] DX/FOOT RIGHT AP LAT Exam Date: 10/25/18 Exam Time : 08 REPORT STATUS: Signed Right foot, 2 views. History: Postop. Findings: Overlying casting m aterial is present. Bone mineralization is normal. There is no evidence of acu te fracture or dislocation. A pin is present traversing the fourth toe. Osteot john of the right first metatarsal is present with small screw and pin present. Bones are in gross anatomic alignment. There are no lytic or sclerotic lesion s. The joint spaces are within normal limits. IMPRESSION: Postoperativ e changes as noted above. Signed by: Dale Krishna on 10/25/2018 9:50 AM Dictated By: DALE KRISHNA MD 9 Transcribed By: VIOLET on 10/25/18949 COPY TO: Roshan ONEAL DPM CHEST 2 [id number] 09:54:00 [place] [address] Patient Name: HANG BURKS MR #: [id number] : 1970 Age/Sex: 48/M Req #: [id number] Adm Physician: Ordered by: DREW ONEAL DPSarah Report #: [id number] Location: OR Room/Bed: Procedure: [id number] DX/CHEST 2 VIEWS Exam Date: Exam Time: REPORT STATUS: Signed Chest, 2 views, 10/23. History: Preop. Comparison: None available. Finding s: The cardiomediastinal silhouette and pulmonary vasculature are within sarah l limits. The lungs are clear without evidence of consolidation or pleural eff usion. There are no acute osseous or soft tissue abnormalities. Impressio n: No acute cardiopulmonary abnormality. Signed by: Dale Krishna on 10/05 9:55 AM Dictated By: DALE KRISHNA MD 4 Transcribed By: VIOLET on 10/23/18954 COPY TO: DREW ONEAL DPM Glucose (Point of Care In Office)2018-05-31 14:17:00* Test Item Value Reference Range Interpretation Comments Glucose POC Lifescan (test code = Glucose POC Lifescan) 194 [facility][O] Hemoglobin A1c (in office)2018-05-31 14:17:00 * Test Item Value Reference Range Interpretation Comments HEMOGLOBIN A1c (test code = 4548-4) 7.7 [facility]icians[facility] Ret[facility] Eye Exam (Diabetic)2018-04-18 06:00:00* Test Item Value Reference Range Interpretation Comments Positive Diabetic Eye Screening (test code = Positive Diabetic Eye Screening) 31Kka2416 A [facility] Quuzxnu1246-23-35 16:00:00* Test Item Value Reference Range Interpretation Comments Bedside Glucose (test code = 39575-1) 109 70-120 Meter ID: [id number] [facility] 2018-03-13 07:15:00* Test Item Value Reference Range Interpretation Comments Sodium Level (test code = 2951-2) 134 136-145 L [facility]way[facility]assium Togjt3592-44-77 07:15:00* Test Item Value Reference Range Interpretation Comments Potassium Level (test code = 2823-3) 3.7 3.5-5.1 [facility] LakewayChloride Kwdxb0699-75-33 07:15:00* Test Item Value Reference Range Interpretation Comments Chloride Level (test code = 2075-0) 99 98-107 [facility] LakewayCarbon Dioxide Hagbi8524-28-47 07:15:00* Test Item Value Reference Range Interpretation Comments Carbon Dioxide Level (test code = 2028-9) 26 22-29 [facility] LakewayAnion Nsf9801-81-18 07:15:00* Test Item Value Reference Range Interpretation Comments Anion Gap (test code = 42351-3) 12.7 8-16 [facility] LakewayBlood Urea Trhuyysy6530-81-40 07:15:00* Test Item Value Reference Range Interpretation Comments Blood Urea Nitrogen (test code = 3094-0) 10 7-26 [facility] LakewayCreatinine2019-01-07 07:15:00* Test Item Value Reference Range Interpretation Comments Creatinine (test code = 2160-0) 0.93 0.72-1.25 [facility] LakewayBUN/Creatinine Hclai3202-59-82 07:15:00* Test Item Value Reference Range Interpretation Comments BUN/Creatinine Ratio (test code = 3097-3) 11 6-25 [facility] LakewayEstimat Glomerular Filtration Rate 2018-03-13 07:15:00* Test Item Value Reference Range Interpretation Comments Estimat Glomerular Filtration Rate (test code = 945801669) > 60 >60 Ranges were taken from the National Kidney Disease Education Program and the [facility] [employer] literature.Reference ranges:60 or greater: Sgvsxl48-76 ( for 3 consecutive months): Chronic kidney disease 15 or less: Kidney failureBaylor Scott & [facility] – LakewayGlucose Zbcsb3520-63-47 07:15:00* Test Item Value Reference Range Interpretation Comments Glucose Level (test code = XAM5125) 118 74-118 [facility] LakewayCalcium Ebxyh7741-90-97 07:15:00* Test Item Value Reference Range Interpretation Comments Calcium Level (test code = 74140-2) 9.0 8.4-10.2 [facility] LakewayTotal Rsjaimevb5683-45-83 05:57:00* Test Item Value Reference Range Interpretation Comments Total Bilirubin (test code = 1975-2) 0.7 0.2-1.2 [facility] LakewayDirect Tubptnjun4024-75-91 05:57:00* Test Item Value Reference Range Interpretation Comments Direct Bilirubin (test code = 45518-4) 0.4 0.0-0.5 [facility] LakewayAspartate Amino Transf (AST/SGOT) 2018-03-13 05:57:00* Test Item Value Reference Range Interpretation Comments Aspartate Amino Transf (AST/SGOT) (test code = Aspartate Amino Transf (AST/SGOT)) 31 5-34 [facility] LakewayAlanine Aminotransferase (ALT/SGPT) 2018-03-13 05:57:00* Test Item Value Reference Range Interpretation Comments Alanine Aminotransferase (ALT/SGPT) (test code = 1742-6) 83 0-55 H [facility] LakewayTotal Nssmlhy4940-35-70 05:57:00* Test Item Value Reference Range Interpretation Comments Total Protein (test code = 2885-2) 7.3 6.5-8.1 [facility] LakewayAlbumin2019-01-07 05:57:00* Test Item Value Reference Range Interpretation Comments Albumin (test code = 1751-7) 3.2 3.5-5.0 L [facility] LakewayAlkaline Btvqaygxhoy5433-51-12 05:57:00* Test Item Value Reference Range Interpretation Comments Alkaline Phosphatase (test code = 6768-6) 98 40-150 [facility] LakewayMagnesium Jkeot8252-47-77 05:14:00* Test Item Value Reference Range Interpretation Comments Magnesium Level (test code = 15064-2) 2.0 1.3-2.1 [facility] LakewayWhite Blood Qwwju3959-87-78 04:42:00* Test Item Value Reference Range Interpretation Comments White Blood Count (test code = 6690-2) 7.51 4.8-10.8 [facility] LakewayRed Blood Vtkkw4860-45-14 04:42:00* Test Item Value Reference Range Interpretation Comments Red Blood Count (test code = 789-8) 5.69 4.3-5.7 [facility] LakewayHemoglobin2019-01-06 04:42:00* Test Item Value Reference Range Interpretation Comments Hemoglobin (test code = 14820-7) 13.9 14.0-18.0 L [facility] LakewayHematocrit2019-01-06 04:42:00* Test Item Value Reference Range Interpretation Comments Hematocrit (test code = 4544-3) 44.1 38.2-49.6 [facility] LakewayMean Corpuscular Kcivxl6292-55-00 04:42:00* Test Item Value Reference Range Interpretation Comments Mean Corpuscular Volume (test code = 787-2) 77.5 81-99 L [facility] LakewayMean Corpuscular Nqidtofdge2570-87-27 04:42:00* Test Item Value Reference Range Interpretation Comments Mean Corpuscular Hemoglobin (test code = 785-6) 24.4 28-32 L [facility] LakewayMean Corpuscular Hemoglobin Concent 2018-03-12 04:42:00* Test Item Value Reference Range Interpretation Comments Mean Corpuscular Hemoglobin Concent (test code = 786-4) 31.5 31-35 [facility] LakewayRed Cell Distribution Ivqqa7655-28-11 04:42:00* Test Item Value Reference Range Interpretation Comments Red Cell Distribution Width (test code = 29043-6) 19.7 11.7 -14.4 H [facility] LakewayPlatelet Knbtw4945-46-82 04:42:00* Test Item Value Reference Range Interpretation Comments Platelet Count (test code = 777-3) 224 140-360 [facility] LakewayNeutrophils (%) (Auto)2018-03-12 04:42:00 * Test Item Value Reference Range Interpretation Comments Neutrophils (%) (Auto) (test code = 66297-6) 44.4 38.7-80.0 [facility] LakewayLymphocytes (%) (Auto)2018-03-12 04:42:00 * Test Item Value Reference Range Interpretation Comments Lymphocytes (%) (Auto) (test code = 736-9) 39.5 18.0-39.1 H [facility] LakewayMonocytes (%) (Auto)2018-03-12 04:42:00* Test Item Value Reference Range Interpretation Comments Monocytes (%) (Auto) (test code = 5905-5) 13.7 4.4-11.3 H [facility] LakewayEosinophils (%) (Auto)2018-03-12 04:42:00 * Test Item Value Reference Range Interpretation Comments Eosinophils (%) (Auto) (test code = 713-8) 1.2 0.0-6.0 [facility] LakewayBasophils (%) (Auto)2018-03-12 04:42:00* Test Item Value Reference Range Interpretation Comments Basophils (%) (Auto) (test code = 706-2) 0.8 0.0-1.0 [facility] LakewayIM GRANULOCYTES %2018-03-12 04:42:00* Test Item Value Reference Range Interpretation Comments IM GRANULOCYTES % (test code = IM GRANULOCYTES %) 0.4 0.0- 1.0 [facility] LakewayNeutrophils # (Auto)2018-03-12 04:42:00* Test Item Value Reference Range Interpretation Comments Neutrophils # (Auto) (test code = 751-8) 3.3 2.1-6.9 [facility] LakewayLymphocytes # (Auto)2018-03-12 04:42:00* Test Item Value Reference Range Interpretation Comments Lymphocytes # (Auto) (test code = 36802-7) 3.0 1.0-3.2 [facility] LakewayMonocytes # (Auto)2018-03-12 04:42:00* Test Item Value Reference Range Interpretation Comments Monocytes # (Auto) (test code = 742-7) 1.0 0.2-0.8 H [facility] LakewayEosinophils # (Auto)2018-03-12 04:42:00* Test Item Value Reference Range Interpretation Comments Eosinophils # (Auto) (test code = 711-2) 0.1 0.0-0.4 [facility] LakewayBasophils # (Auto)2018-03-12 04:42:00* Test Item Value Reference Range Interpretation Comments Basophils # (Auto) (test code = 704-7) 0.1 0.0-0.1 [facility] LakewayAbsolute Immature Granulocyte (auto 2018-03-12 04:42:00* Test Item Value Reference Range Interpretation Comments Absolute Immature Granulocyte (auto (kareen t code = Absolute Immature Granulocyte (auto) 0.03 0-0.1 [facility] LakewayVancomycin Level Rjkcez9016-13-85 21:03:00* Test Item Value Reference Range Interpretation Comments Vancomycin Level Trough (test code = 4092-3) 11.5 5.0-10.0 HH Results called to ERLIN MCDANIEL/HENRY at 2101 on 03/11/18 by Víctor Nunez. AYUSH StoutBaylor Scott & [facility] – LakewayBlood Sfyazkj2031-37-24 16:04:00* Test Item Value Reference Range Interpretation Comments Blood Culture (test code = 11115010) NO GROWTH AFTER 5 DAYS, FINAL REPORT [facility] LakewayAnti-Mitochondrial Zbercphu3977-53-28 13:07:00* Test Item Value Reference Range Interpretation Comments Anti-Mitochondrial Antibody (test code = 42118-7) 2.2 0.0- 20.0 Negative 0.0 - 20.0 Equivocal 20.1 - 24.9 Positive > 24.9Mitochondrial (M2) Antibodies are found in 90-96% ofpatients with primary bi liary cirrhosis.Performed at: [address] [id number] Director: Pedro Darby MD, Phone: [phone] Scott & [facility] Center – LakewayAnti-Smooth Muscle Xvqtcfja4637-14-67 13:07:00* Test Item Value Reference Range Interpretation Comments Anti-Smooth Muscle Antibody (test code = 63748-1) 9 0-19 Negative 0 - 19 Weak positi ve 20 - 30 Moderate to strong positive >30 Actin Antibodies are found in 52-85% of patients with autoimmune hepatitis or chronic active hepatitis and in 22% of patients with primary biliary cirrhosis. [facility] LakewayGlobulin2019-01-03 06:43:00* Test Item Value Reference Range Interpretation Comments Globulin (test code = 35650-4) 4.5 2.3-3.5 H [facility] LakewayAlbumin/Globulin Bzsmr0439-95-71 06:43:00 * Test Item Value Reference Range Interpretation Comments Albumin/Globulin Ratio (test code = 1759-0) 0.7 0.8-2.0 L [facility] A IgM Nemycmne3241-24-03 06:26:00* Test Item Value Reference Range Interpretation Comments Hepatitis A IgM Antibody (test code = 10497-6) Negative Negativ e [facility] B Surface Ldggksl6651-14-12 06:26:00* Test Item Value Reference Range Interpretation Comments Hepatitis B Surface Antigen (test code = 5196-1) Negative Negat renard [facility] B Core IgM Uyzdpabv4638-40-92 06:26:00* Test Item Value Reference Range Interpretation Comments Hepatitis B Core IgM Antibody (test code = 15982-8) Negative Ne gative [facility] C Pdfcpwil7771-58-43 06:26:00* Test Item Value Reference Range Interpretation Comments Hepatitis C Antibody (test code = 90138-0) <0.1 0.0-0.9 Negative: < 0.8 Indeterminate: 0.8 - 0.9 Positive: > 0.9 The CDC recommends that a positive HCV antibody result be followed up with a HCV Nucleic Acid Amplification test (863353).Performed at: - [facility] [address] [place] [id number] Director: Harsha Penaloza MD, Phone: [phone] Scott & White [facility] – LakewayAnti-Nuclear Antibody Screen 2018-03-08 11:42:00* Test Item Value Reference Range Interpretation Comments Anti-Nuclear Antibody Screen (test code = 5048-4) Negative . Negative <1:80 Borderline 1:80 Positive > 1:80Performed at: [employer] [facility] [address] [id number] Director: Harsha Penaloza MD, Phone: [phone] Scott & [facility] – LakewayUS RENAL RETROPERITONEAL JABK7612-83-02 15:44:00 [facility] [address] [address] Patient Name: HANG BURKS MR #: [id number] : 1970 Age/Sex: 48/M Req #: [id number] Adm Physician: JITENDRA SUGGS MD Ordered by: MATTY JHA MD Report #: [id number] Location: MED/SURG3 Room/Bed: [facility] Procedure: [id number] US/US RE NAL RETROPERITONEAL COMP Exam Date: Exam Time: REPORT STATUS: Signed EXAM: Renal U ltrasound COMPARISON: CT abdomen/pelvis 03/05/2018. TECHNIQUE: Transve rse and longitudinal images of the kidneys and bladder were obtained. F INDINGS: Right Kidney: Length: Measures 11.9 x 5.8 x 4.2 cm Appea bethayn: Normal echogenicity. Collecting system: No hydronephrosis Stones: N one Cyst/Mass: No evidence of solid mass. Simple appearing 2 cm anechoic cyst is present in the right upper pole kidney. Left Kidney: Length: Measu res 11.4 x 5.8 x 4.2 cm Appearance: Normal echogenicity. Collecting system : No hydronephrosis Stones: None. Punctate left upper pole calculus described on CT abdomen/pelvis from 03/05/2018 is not well seen by ultrasound. Cyst/Ma ss: None Bladder: Unremarkable in appearance. Bilateral ureteral jets ar e present. IMPRESSION: No evidence of hydronephrosis. Simple appeari ng right upper pole renal cyst. Punctate left upper pole calculus describe d on CT abdomen/pelvis from 03/05/2018 is not well seen by ultrasound. Si gned by: Dr. Mary Arenas MD on 03/07/2018 3:48 PM Dictated By: MARY Schaefer 47 Transcribed By: JAYLON NOWAK on 03/07/181547 COPY TO: MATTY JHA MD Urine Osmolality 2018-03-07 15:39:00* Test Item Value Reference Range Interpretation Comments Urine Osmolality (test code = 2695-5) 735 . 24 hr : 300 - 900 Random: 50 - 1400 After 12hr fluid restriction: >850Performed at: [facility] - [facility] [address] [id number] Director: Harsha Penaloza MD, Phone: [phone] Scott & White Medical Center – LakewayUrine Random Total Vtdekza5617-42-47 12:00:00* Test Item Value Reference Range Interpretation Comments Urine Random Total Protein (test code = 2888-6) 25.4 1-14 H [facility] LakewayUrine Ltrzazyxmu1420-78-60 12:00:00* Test Item Value Reference Range Interpretation Comments Urine Creatinine (test code = 2161-8) 105.21 63-166 [facility] LakewayCreatine Kinase IX4155-30-77 12:38:00* Test Item Value Reference Range Interpretation Comments Creatine Kinase MB (test code = 19156-7) 0.50 0-5.0 [facility] LakewayTroponin A8305-14-60 12:38:00* Test Item Value Reference Range Interpretation Comments Troponin I (test code = ZGZ9554) 0.001 0-0.300 [facility] LakewayCreatine Vexpcl0799-46-92 12:31:00* Test Item Value Reference Range Interpretation Comments Creatine Kinase (test code = 2157-6) 162 30-200 [facility] LakewayUrine Random Dkchxd3173-46-05 09:37:00* Test Item Value Reference Range Interpretation Comments Urine Random Sodium (test code = 2955-3) 25 [facility] Sgnmfafjag7797-59-67 09:26:00* Test Item Value Reference Range Interpretation Comments Serum Osmolality (test code = 15474-3) 260 278-305 L [facility] LakewayLactic Acid Kdwem0248-89-94 06:44:00* Test Item Value Reference Range Interpretation Comments Lactic Acid Level (test code = Lactic Acid Level) 11.1 4.5- 19.8 [facility] LakewayPhosphorus Satae2667-05-74 05:08:00* Test Item Value Reference Range Interpretation Comments Phosphorus Level (test code = NIR8507) 2.9 2.3-4.7 [facility] LakewayCHEST XRAY LINE ILZXEJYLR0381-38-38 20:11:00 [facility] [address] [address] Patient Name: HANG BURKS MR #: [id number] : 1970 Age/Sex: 48/M Req #: [id number] Adm Physician: JITENDRA SUGGS MD Ordered by: DEBRA HERNANDEZ MD Report #: [id number] Location: [facility] Room/Bed: [place] [address] Procedure: [id number] DX/ CHEST XRAY LINE PLACEMENT Exam Date: 03/05/18 Exam T marianela: 5 REPORT STATUS: Signed EXAM: CHEST XRAY LINE PLACEMENT, AP 1 view INDICATION: Central line placement COMPARISON: PA and lateral view of the chest March 05, 2018 FINDINGS: LINES/TUBES: Right internal jugular vein central line tip terminates in expe cted location of the atriocaval junction. LUNGS: No consolidations or edema . PLEURA: No effusions or pneumothorax. HEART AND MEDIASTINUM: Normal size and contour. BONES AND SOFT TISSUES: No acute findings. IMPRESS ION: Right internal jugular vein central line tip terminates in expected locat ion of the atriocaval junction. No pneumothorax. Signed by: Dr. Erica Brothers M.D. on 03/05/2018 8:12 PM Dictated By: HEIDI Schaefer 11 Transcribed By: VIOLET on 03/05/182011 COPY TO: DEBRA HERNANDEZ MD Differential Total Cells Rqezlgb6155-15-20 19:45:00* Test Item Value Reference Range Interpretation Comments Differential Total Cells Counted (test code = Differmeka tial Total Cells Counted) 100 [facility] LakewayNeutrophils % (Manual)2018-03-05 19:45:00 * Test Item Value Reference Range Interpretation Comments Neutrophils % (Manual) (test code = 46148-0) 86 40-74 H [facility] LakewayBand Neutrophils %2018-03-05 19:45:00* Test Item Value Reference Range Interpretation Comments Band Neutrophils % (test code = 764-1) 5 [facility] LakewayLymphocytes % (Manual)2018-03-05 19:45:00 * Test Item Value Reference Range Interpretation Comments Lymphocytes % (Manual) (test code = 737-7) 5 19-48 L [facility] LakewayMonocytes % (Manual)2018-03-05 19:45:00* Test Item Value Reference Range Interpretation Comments Monocytes % (Manual) (test code = 744-3) 4 3.4-9.0 [facility] LakewayPlatelet Kztqqwxo4312-31-55 19:45:00* Test Item Value Reference Range Interpretation Comments Platelet Estimate (test code = 79779-2) ADEQUATE [facility] LakewayPlatelet Morphology Goncxrl7384-46-44 19:45:00* Test Item Value Reference Range Interpretation Comments Platelet Morphology Comment (test code = 59560-0) FEW GIANT [facility] LakewayMicrocytosis2018-12-30 19:45:00* Test Item Value Reference Range Interpretation Comments Microcytosis (test code = 741-9) SLIGHT [facility] LakewayArterial Blood rH9304-77-91 19:22:00* Test Item Value Reference Range Interpretation Comments Arterial Blood pH (test code = 2744-1) 7.38 7.31-7.41 [facility] LakewayArterial Blood Partial Pressure CO2 2018-03-05 19:22:00* Test Item Value Reference Range Interpretation Comments Arterial Blood Partial Pressure CO2 (test code = 2018-10) 32 41-51 L [facility] LakewayArterial Blood Partial Pressure O2 2018-03-05 19:22:00* Test Item Value Reference Range Interpretation Comments Arterial Blood Partial Pressure O2 (test code = 2018-10) 80 80-105 [facility] LakewayArterial Blood [id number] 19:22:00* Test Item Value Reference Range Interpretation Comments Arterial Blood HCO3 (test code = 1960-4) 19 23-28 L [facility] LakewayArterial Blood Base Tmglsq1913-80-35 19:22:00* Test Item Value Reference Range Interpretation Comments Arterial Blood Base Excess (test code = 1925-7) -6.0 -2-3 L [facility] LakewayArterial Blood Oxygen Saturation 2018-03-05 19:22:00* Test Item Value Reference Range Interpretation Comments Arterial Blood Oxygen Saturation (test code = 2708-6) 96.0 95-98 [facility] LakewayFiO22018-12-30 19:22:00* Test Item Value Reference Range Interpretation Comments FiO2 (test code = FiO2) 21 PT ON RA SATTING 96%[facility] LakewayCT ABDOMEN/PELVIS W 2018-03-05 18:43:00 [facility] [address] [place] [address] Patient Name: HANG BURKS MR #: [id number] : 1970 Age/Sex: 48/M Req #: [id number] Adm Physician: Ordered by: CIRA CORNEJO MD Report #: [id number] Location: ER Room/Bed: Procedure: [id number] CT/CT ABDOMEN/PELVIS W Exam Date: 03/05/18 Exam Time: 1817 REPORT STATUS: Signed CT Abdome n And Pelvis with Intravenous Contrast INDICATION: Fever for 2 days, histor y of cellulitis TECHNIQUE: Thin collimation axial images obtained from the diaphragm to the level of the pubic symphysis following the uneventful adminis tration of oral and 100 cc of low osmolar, nonionic intravenous contrast. Dose reduction techniques used: Automated exposure control, adjustment of the mAs and/or kVp according to patient size, standardized low-dose protocol, an d/or iterative reconstruction technique. RADIATION DOSE: Total DL P: 505.68 mGy*cm Estimated effective dose: (DLP x 0.015 x size factor ) mSv CTDIvol has been reviewed. It is below the limits set by the Radiat ion Protocol Committee (RPC). COMPARISON: Right upper quadrant ultrasound 02/14/2018. ABDOMEN FINDINGS: Lung Bases: Minimal bibasilar atelecta sis. Liver: Decreased attenuation consistent with steatosis. Right lobe pk sures 20 cm in length. No evidence for mass. Gallbladder: Absent. No jb iary ductal dilatation. Pancreas: Normal attenuation without mass or ductal dilatation. Spleen: Normal in size. No evidence of mass.. Adrenal Gl ands: No evidence for mass. Kidneys: Right: Normal enhancement. Cyst in the lateral interpolar cortex measures 21 mm. No hydronephrosis. A single artery supplies the kidney. There is an accessory renal vein. Left: Nor mal enhancement. Subcentimeter low attenuating lesion the upper pole is sugge stive of a cyst. Punctate calculus in the upper pole. No hydronephrosis. A sin gle artery supplies the kidney with early branching. Lymph Nodes: No enlarg ed abdominal or retroperitoneal lymph nodes. Aorta: Normal in diameter PELVIS FINDINGS: Bowel: Stomach: Normal. Small Bowel: Normal in c aliber with normal wall thickness. Enteric contrast present throughout. Lar ge Bowel: Normal in caliber with normal wall thickness. Scattered diverticula . No associated inflammation. Appendix: Normal appendix. Bladder: Normal. Ureters: Nondilated. No ureteral dilatation. Prostate: Measures 3.7 x 4.6 c m in the axial plane Peritoneum/retroperitoneum: No free fluid or fluid col lection. Bones: Mild degenerative changes of the spine, most significant at L5-S1 with circumferential disc bulge resulting in mild spinal canal stenosis . Soft tissues: Unremarkable. IMPRESSION: 1. Steatosis and hepa tomegaly. Cholecystectomy. Normal biliary tree. 2. No evidence for bowel obstruction or inflammation. Normal appendix. Mild burden of diverticulosis co li. 3. Nonobstructing left intrarenal calculus. Signed by: Dr. Ryan Lamb MD on 03/05/2018 6:50 PM Dictated By: DILIP LAMB MD 49 Transcribed By: VIOLET on 03/05/181849 COPY TO: CIRA CORNEJO MD Amylase Level 2018-03-05 18:38:00* Test Item Value Reference Range Interpretation Comments Amylase Level (test code = 1798-8) 113 25-125 [facility] LakewayLipase2018-12-30 18:38:00* Test Item Value Reference Range Interpretation Comments Lipase (test code = 3040-3) 118 8-78 H [facility] LakewayLOWER LEG GFTOD2508-35-98 18:01:00 [facility] [address] [address] Patient Name: HANG BURKS MR #: [id number] : 1970 Age/Sex: 48/M Req #: [id number] Adm Physician: Ordered by: CIRA CORNEJO MD Report #: [id number] Location: ER Room/Bed: Procedure: [id number] DX/LOW ER LEG RIGHT Exam Date: 03/05/18 Exam Time: 1723 REPORT STATUS: Signed Tibia fibula right CPT code: 81591 Indication: Right ankle cellulitis, fever T echnique: AP and lateral views of the right tibia and fibula obtained. Co mparison: Lower extremity x-rays 02/14/2018 Findings: No fracture, dis location, or focal osseous lesion. No periosteal new bone formation. A flabell a is in the popliteal fossa. No degenerative changes of the knee. Spheric al calcification in the interosseous membrane measures 3 mm and is stable. No air or radiopaque foreign bodies in the soft tissues. IMPRESSION: No o sseous abnormalities. No new findings to suggest osteomyelitis. Signed by: Dr. Dilip Lamb MD on 03/05/2018 6:04 PM Dictated By: DILIP BOURNE MD 03 Trans cribed By: VIOLET on 03/05/181803 COPY TO: CIRA CORNEJO MD Urine [id number] 17:24:00* Test Item Value Reference Range Interpretation Comments Urine WBC (test code = 5821-4) 0-5 0-5 [facility] LakewayUrine MBY1566-88-81 17:24:00* Test Item Value Reference Range Interpretation Comments Urine RBC (test code = 51508-3) 0-5 0-5 [facility] LakewayUrine Oyknnamf5108-20-61 17:24:00* Test Item Value Reference Range Interpretation Comments Urine Bacteria (test code = 96009-8) RARE NONE [facility] LakewayUrine Epithelial Uveaj6307-84-54 17:24:00 * Test Item Value Reference Range Interpretation Comments Urine Epithelial Cells (test code = 03867-6) RARE NONE [facility] LakewayUrine Gnenm4574-76-58 17:03:00* Test Item Value Reference Range Interpretation Comments Urine Color (test code = 5778-6) YELLOW YELLOW [facility] LakewayUrine Wswrdkb4666-84-36 17:03:00* Test Item Value Reference Range Interpretation Comments Urine Clarity (test code = 68100-2) CLEAR CLEAR [facility] LakewayUrine Specific Quzxxxm8999-75-24 17:03:00 * Test Item Value Reference Range Interpretation Comments Urine Specific [place] (test code = 5811-5) 1.010 1.010-1.02 5 [facility] LakewayUrine [id number] 17:03:00* Test Item Value Reference Range Interpretation Comments Urine pH (test code = 66152-2) 6 5-7 [facility] LakewayUrine Leukocyte Pfubqqqn6233-96-22 17:03:00* Test Item Value Reference Range Interpretation Comments Urine Leukocyte Esterase (test code = 5799-2) NEGATIVE NEGATIVE [facility] LakewayUrine Pqggywo6510-56-57 17:03:00* Test Item Value Reference Range Interpretation Comments Urine Nitrite (test code = 68125-3) NEGATIVE NEGATIVE [facility] LakewayUrine Egzzpvr9521-53-05 17:03:00* Test Item Value Reference Range Interpretation Comments Urine Protein (test code = 5804-0) NEGATIVE NEGATIVE [facility] LakewayUrine Glucose (UA)2018-03-05 17:03:00* Test Item Value Reference Range Interpretation Comments Urine Glucose (UA) (test code = 2349-9) 3+ NEGATIVE H [facility] LakewayUrine Pvjcjxh9456-03-99 17:03:00* Test Item Value Reference Range Interpretation Comments Urine Ketones (test code = 88197-5) TRACE NEGATIVE H [facility] LakewayUrine Osyogrvdghmd1619-13-78 17:03:00* Test Item Value Reference Range Interpretation Comments Urine Urobilinogen (test code = 21662-7) 0.2 0.2-1 [facility] LakewayUrine Ljlvawwpa8215-09-81 17:03:00* Test Item Value Reference Range Interpretation Comments Urine Bilirubin (test code = 1978-6) 1+ NEGATIVE H Confirmatory test currently unavailable. False positive results may occur.[facility] LakewayUrine Nwxew0484-21-49 17:03:00* Test Item Value Reference Range Interpretation Comments Urine Blood (test code = 29269-7) NEGATIVE NEGATIVE [facility] LakewayCHEST 2 JZTEH3516-99-20 16:42:00 [place] [address] Patient Name: HANG BURKS MR #: [id number] : 1970 Age/Sex: 48/M Req #: [id number] [facility] Physician: Ordered by: CIRA CORNEJO MD Report #: [id number] Location: ER Room/Bed: Procedure: [id number] DX/JUAN ST 2 VIEWS Exam Date: 03/05/18 Exam Time: 1535 REPORT STATUS: Signed EXAMINATION: C hest x-ray 09/04/2016 INDICATION: Infection one week ago, fever, vomiting COMPARISON: None FINDINGS: PA and lateral views TUBES and LINES: None. LUNGS: Lungs are well inflated. There is no evidence of pn eumonia or pulmonary edema. PLEURA: No pleural effusion or pneumothorax. HEART AND MEDIASTINUM: The cardiomediastinal silhouette is unremarkable.. BONES AND SOFT TISSUES: No focal osseous lesions. Soft tissues are unremarkable. UPPER ABDOMEN: No free air under the diaphragm. Cholecystecto my clips are present. IMPRESSION: No acute thoracic abnormality. Signed by: Dr. Dilip Lamb MD on 03/05/2018 4:43 PM Dictated By : DILIP LAMB MD 1643 COPY TO: CIRA CORNEJO MD Bedside Gicmcio6176-46-21 11:54:00* Test Item Value Reference Range Interpretation Comments Bedside Glucose (test code = 18411-7) 258 70-120 H Meter ID: [id number] [facility] BrenhamVancomycin Level Oskvzq6746-82-27 11:17:00* Test Item Value Reference Range Interpretation Comments Vancomycin Level Trough (test code = 4092-3) 13.9 5.0-10.0 HH Results called to LONG MOSS at 1117 on 02/17/18 by EDMUNDO DONALD. RB OK .[facility] LakewayBlood Iqmxcvg2931-78-07 10:35:00* Test Item Value Reference Range Interpretation Comments Blood Culture (test code = 33810277) NO GROWTH AFTER 72 HOURS [facility] Zyton6742-91-60 06:31:00* Test Item Value Reference Range Interpretation Comments Sodium Level (test code = 2951-2) 133 136-145 L [facility] LakewayPotassium Lsblc2671-06-83 06:31:00* Test Item Value Reference Range Interpretation Comments Potassium Level (test code = 2823-3) 3.7 3.5-5.1 [facility] LakewayChloride Jihwz9206-80-24 06:31:00* Test Item Value Reference Range Interpretation Comments Chloride Level (test code = 2075-0) 100 98-107 [facility] LakewayCarbon Dioxide Fxghi2323-19-06 06:31:00* Test Item Value Reference Range Interpretation Comments Carbon Dioxide Level (test code = 2028-9) 21 22-29 L [facility] LakewayAnion Bqu2760-06-31 06:31:00* Test Item Value Reference Range Interpretation Comments Anion Gap (test code = 37532-3) 15.7 8-16 [facility] LakewayBlood Urea Eczsxbsd6893-65-30 06:31:00* Test Item Value Reference Range Interpretation Comments Blood Urea Nitrogen (test code = 3094-0) 10 7-26 [facility] LakewayCreatinine2018-12-13 06:31:00* Test Item Value Reference Range Interpretation Comments Creatinine (test code = 2160-0) 1.11 0.72-1.25 [facility] LakewayBUN/Creatinine Jxttl1982-15-06 06:31:00* Test Item Value Reference Range Interpretation Comments BUN/Creatinine Ratio (test code = 3097-3) 9 6-25 [facility] LakewayEstimat Glomerular Filtration Rate 2018-02-16 06:31:00* Test Item Value Reference Range Interpretation Comments Estimat Glomerular Filtration Rate (test code = 714750461) > 60 >60 Ranges were taken from the National Kidney Disease Education Program and the [employer] literature.Reference ranges:60 or greater: Ogtxeb12-87 ( for 3 consecutive months): Chronic kidney disease 15 or less: Kidney failureBaylor Scott & [facility] Center – LakewayGlucose Juons9338-67-40 06:31:00* Test Item Value Reference Range Interpretation Comments Glucose Level (test code = QWO6136) 89 74-118 [facility] LakewayCalcium Fdejw4491-96-28 06:31:00* Test Item Value Reference Range Interpretation Comments Calcium Level (test code = 04325-0) 9.3 8.4-10.2 [facility] LakewayWhite Blood Coyvj4870-38-72 06:21:00* Test Item Value Reference Range Interpretation Comments White Blood Count (test code = 6690-2) 7.62 4.8-10.8 [facility] LakewayRed Blood Onzzu4462-55-29 06:21:00* Test Item Value Reference Range Interpretation Comments Red Blood Count (test code = 789-8) 5.97 4.3-5.7 H [facility] LakewayHemoglobin2018-12-13 06:21:00* Test Item Value Reference Range Interpretation Comments Hemoglobin (test code = 71135-9) 14.3 14.0-18.0 [facility] LakewayHematocrit2018-12-13 06:21:00* Test Item Value Reference Range Interpretation Comments Hematocrit (test code = 4544-3) 45.9 38.2-49.6 [facility] LakewayMean Corpuscular Gwvuee3219-49-41 06:21:00* Test Item Value Reference Range Interpretation Comments Mean Corpuscular Volume (test code = 787-2) 76.9 81-99 L [facility] LakewayMean Corpuscular Wfeplpwlje0955-99-55 06:21:00* Test Item Value Reference Range Interpretation Comments Mean Corpuscular Hemoglobin (test code = 785-6) 24.0 28-32 L [facility] LakewayMe Corpuscular Hemoglobin Concent 2018-02-16 06:21:00* Test Item Value Reference Range Interpretation Comments Mean Corpuscular Hemoglobin Concent (test code = 786-4) 31.2 31-35 [facility] LakewayRed Cell Distribution Zzoxk9977-06-46 06:21:00* Test Item Value Reference Range Interpretation Comments Red Cell Distribution Width (test code = 87729-8) 18.7 11.7 -14.4 H [facility] LakewayPlatelet Gkupl5276-47-74 06:21:00* Test Item Value Reference Range Interpretation Comments Platelet Count (test code = 777-3) 204 140-360 [facility] LakewayNeutrophils (%) (Auto)2018-02-16 06:21:00 * Test Item Value Reference Range Interpretation Comments Neutrophils (%) (Auto) (test code = 05513-9) 67.9 38.7-80.0 [facility] LakewayLymphocytes (%) (Auto)2018-02-16 06:21:00 * Test Item Value Reference Range Interpretation Comments Lymphocytes (%) (Auto) (test code = 736-9) 15.6 18.0-39.1 L [facility] LakewayMonocytes (%) (Auto)2018-02-16 06:21:00* Test Item Value Reference Range Interpretation Comments Monocytes (%) (Auto) (test code = 5905-5) 12.2 4.4-11.3 H [facility] LakewayEosinophils (%) (Auto)2018-02-16 06:21:00 * Test Item Value Reference Range Interpretation Comments Eosinophils (%) (Auto) (test code = 713-8) 3.4 0.0-6.0 [facility] LakewayBasophils (%) (Auto)2018-02-16 06:21:00* Test Item Value Reference Range Interpretation Comments Basophils (%) (Auto) (test code = 706-2) 0.5 0.0-1.0 [facility] LakewayIM GRANULOCYTES %2018-02-16 06:21:00* Test Item Value Reference Range Interpretation Comments IM GRANULOCYTES % (test code = IM GRANULOCYTES %) 0.4 0.0- 1.0 [facility] LakewayNeutrophils # (Auto)2018-02-16 06:21:00* Test Item Value Reference Range Interpretation Comments Neutrophils # (Auto) (test code = 751-8) 5.2 2.1-6.9 [facility] LakewayLymphocytes # (Auto)2018-02-16 06:21:00* Test Item Value Reference Range Interpretation Comments Lymphocytes # (Auto) (test code = 41545-2) 1.2 1.0-3.2 [facility] LakewayMonocytes # (Auto)2018-02-16 06:21:00* Test Item Value Reference Range Interpretation Comments Monocytes # (Auto) (test code = 742-7) 0.9 0.2-0.8 H [facility] LakewayEosinophils # (Auto)2018-02-16 06:21:00* Test Item Value Reference Range Interpretation Comments Eosinophils # (Auto) (test code = 711-2) 0.3 0.0-0.4 [facility] LakewayBasophils # (Auto)2018-02-16 06:21:00* Test Item Value Reference Range Interpretation Comments Basophils # (Auto) (test code = 704-7) 0.0 0.0-0.1 [facility] LakewayAbsolute Immature Granulocyte (auto 2018-02-16 06:21:00* Test Item Value Reference Range Interpretation Comments Absolute Immature Granulocyte (auto (kareen t code = Absolute Immature Granulocyte (auto) 0.03 0-0.1 [facility]wayHescripps [facility] A IgM Dsuhhqgq8794-94-93 15:49:00* Test Item Value Reference Range Interpretation Comments Hepatitis A IgM Antibody (test code = 63650-1) Negative Negativ e [facility] B Surface Nvgvyfk3122-46-90 15:49:00* Test Item Value Reference Range Interpretation Comments Hepatitis B Surface Antigen (test code = 5196-1) Negative Negat renard [facility] B Core IgM Yaatytcf7485-71-04 15:49:00* Test Item Value Reference Range Interpretation Comments Hepatitis B Core IgM Antibody (test code = 12151-9) Negative Ne mary beth [facility] LakewayLactic Acid Vtxwm7558-86-83 15:29:00* Test Item Value Reference Range Interpretation Comments Lactic Acid Level (test code = Lactic Acid Level) 29.2 4.5- 19.8 HH Results called to ravinder miller at 1527 on 02/14/18 by Douglas Sinclair. RB OK. [facility] LakewayUS MEIBLXPIHFX0135-68-32 14:11:00 [facility] [address] [place] [address] Patient Name: HANG BURKS MR #: [id number] : 1970 Age/Sex: 47/M Req #: [id number] [facility] Physician: JITENDRA SUGGS MD Ordered by: ANTWAN PHIPPS MD Report #: [id number] Location: [facility] Room/Bed: [place] [address] Procedure: [id number] U S/US GALLBLADDER Exam Date: Exam Time: REPORT STATUS: Signed EXAM: Right [facility] Ultrasound INDICATION: Transaminitis COMPARISON: None. T ECHNIQUE: Transverse and longitudinal images of the right upper abdomen were o btained. FINDINGS: Liver: Size: 17.8 cm in the right midclavicula r line, enlarged Appearance: Increased echogenicity, smooth contour Mass: No focal masses Gallbladder: Absent Sonographic James's Sign: Negative Bile Ducts: Intrahepatic Ducts: No dilatation Extrahepatic Ducts: Common bile duct measures 0.3 cm, no dilatation Pancreas: Obscured by overlying bowel gas. Kidneys: Length: Right 11.5 cm Echogenicity : Normal Collecting System: No hydronephrosis Stone: None Cyst/Mass: 1. 7 x 1.4 x 2.0 cm cystic, anechoic, mostly exophytic lesion in the superior jimmie e, consistent with a simple cyst. Vessels: Aorta: The proximal portion is unremarkable. Mid and distal aorta are obscured by overlying bowel gas. Infer ior Vena Cava: Visualized portions are normal Main Portal Vein: 0.9 cm, normal size with hepatopetal flow. Free Fluid: No ascites or pleural effusion IMPRESSION: 1. Hepatomegaly with diffuse fatty infiltration. No focal l esions. 2. Pancreas, mid and distal aorta could not be evaluated as they ar e obscured by overlying bowel gas. 3. 2.0 cm simple cyst in the right jami al superior pole. Signed by: Dr. Bobby Gurrola M.D. on 02/14/2018 2 :13 PM Dictated By: BOBBY GURROLA MD 12 Transcribed By: VIOLET on 02/14/181412 COPY TO: ANTWAN PHIPPS MD LOWER LEG XVRUI2495-06-67 11:24:00 [place] [address] Patient Name: HANG BURKS MR #: [id number] : 1970 Age/Sex: 47/M Req #: [id number] Adm Physician: Ordered by: ANTWAN PHIPPS MD Report #: [id number] Location: ER Room/Bed: Procedure: [id number] DX /LOWER LEG RIGHT Exam Date: 02/14/18 Exam Time: 1050 REPORT STATUS: Signed Exam: Lower leg, 2 views History: Pain and swelling after puncture wound C omparison: None. Findings: There is normal bone mineralization. No acute, displaced fracture or dislocation. Joint spaces are relatively well-preserved . No cortical erosion or destruction. No abnormal soft tissue calcification or soft tissue defect. No significant soft tissue swelling. Impression: 1. No acute abnormalities. Signed by: Dr. Bobby Gurrola M.D. on 01/2018 11:25 AM Dictated By: BOBBY GURROLA MD 24 Transcribed By: VIOLET on 02/14/181124 COPY TO: ANTWAN PHIPPS MD Total Nzytvxpxx4748-65-28 11:05:00* Test Item Value Reference Range Interpretation Comments Total Bilirubin (test code = 1975-2) 1.1 0.2-1.2 [facility] LakewayAspartate Amino Transf (AST/SGOT) 2018-02-14 11:05:00* Test Item Value Reference Range Interpretation Comments Aspartate Amino Transf (AST/SGOT) (test code = Aspartate Amino Transf (AST/SGOT)) 185 5-34 H [facility] LakewayAlanine Aminotransferase (ALT/SGPT) 2018-02-14 11:05:00* Test Item Value Reference Range Interpretation Comments Alanine Aminotransferase (ALT/SGPT) (test code = 1742-6) 113 0-55 H [facility] LakewayTotal Mdlzbuo9844-96-43 11:05:00* Test Item Value Reference Range Interpretation Comments Total Protein (test code = 2885-2) 8.9 6.5-8.1 H [facility] LakewayAlbumin2018-12-11 11:05:00* Test Item Value Reference Range Interpretation Comments Albumin (test code = 1751-7) 3.8 3.5-5.0 [facility] LakewayGlobulin2018-12-11 11:05:00* Test Item Value Reference Range Interpretation Comments Globulin (test code = 19449-8) 5.1 2.3-3.5 H [facility] LakewayAlbumin/Globulin Ytima1842-25-66 11:05:00 * Test Item Value Reference Range Interpretation Comments Albumin/Globulin Ratio (test code = 1759-0) 0.7 0.8-2.0 L [facility] LakewayAlkaline Ccuzqijpamu4847-01-41 11:05:00* Test Item Value Reference Range Interpretation Comments Alkaline Phosphatase (test code = 6768-6) 70 40-150 [facility] BrenhamUS Extremity lower venous Doppler Unilat 522961896-16-68 12:59:00EXAM: US RIGHT LOWER EXTREMITY VENOUS DOPPLERDATE: 02/08/2018 12:59 PM CSTINDICATION: - M79.604 Pain in right leg,L03.115 Cellulitis of right lowerlimb. Swelling of the right leg.ADDITIONAL INFORMATION: Patient had glucose meter on right leg with pain andswelling extending from the calf to groin.COMPARISON: None.TECHNIQUE: Multiplanar grayscale, color Doppler and spectral Doppler ultrasoundimages of the right lower extremity veins. FINDINGS:Right Thigh Veins:Common Femoral: Patent.Femoral (SFV): Patent.Popliteal: Patent.Proximal Greater Saphenous: Patent.Deep Femoral Veins: Patent.Right Calf Veins: Paired Peroneal: Patent. Posterior Tibial Calf: Patent.Other: Within the right groin region, two lymph nodes are seen measuring 3.4 x1.3 x 2.0 cm and 1.1 x 0.7 x 0.8 cmIMPRESSION:1. No deep venous thrombosis is detected.2. Nonspecific limits nodes in the right groin region, one of which is enlarged(3.4 x 1.3 x 2.0 cm).--Read by: Bk Aguayo MDDictated Date/time: 02/08/18 13:51Electronically Signed by: Bk Aguayo MD 02/08/1813:54FINAL REPORTUnSt. Mark's Hospital Physicians[O] Influenza A and B, Rapid Method (In Office)2018-01-19 16:34:56* Test Item Value Reference Range Interpretation Comments INFLUENZA A & B Rapid (test code = INFLUENZA A & B Rapid) negative N [facility][O] Streptococcus Test Rapid (In Office)2018-01-19 16:34:35* Test Item Value Reference Range Interpretation Comments Group A Strep Screen; Abnormal (test code = 79454-9) positive A [facility] PhysiciansGlucose (Point of Care In Office)2017-12-20 16:11:00* Test Item Value Reference Range Interpretation Comments Glucose POC Lifescan (test code = Glucose POC Lifescan) 147 [facility][O] Hemoglobin A1c (in office)2017-12-20 16:11:00 * Test Item Value Reference Range Interpretation Comments HEMOGLOBIN A1c (test code = 4548-4) 7.3 [facility] PhysiciansGlucose (Point of Care In Office)2017-09-19 16:28:00* Test Item Value Reference Range Interpretation Comments Glucose POC Lifescan (test code = Glucose POC Lifescan) 97 [facility][O] Hemoglobin A1c (in office)2017-09-19 16:28:00 * Test Item Value Reference Range Interpretation Comments HEMOGLOBIN A1c (test code = 4548-4) 7.4 [facility]] LIPID VYSPY4359-25-15 07:55:00* Test Item Value Reference Range Interpretation Comments CHOLESTEROL, TOTAL; Normal (test code = 2093-3) 129 mg/dl <200 N HDL CHOLESTEROL; Below Low Threshold (test code = 2085-9) 36 mg/dl >40 TRIGLYCERIDES; Normal (test code = 2571-8) 125 mg/dl <150 N LDL-CHOLESTEROL; Normal (test code = 28147-6) 72 {MG/DL TRISH} N Reference range: <100 Desirable range <100 mg/dL for primary prevention; <70 mg/dL for patients with CHD or diabetic patients with > or = 2 CHD risk factors. LDL-C is now calculated using the Ernie-Martin calculation, which is a validated novel method providing better accuracy than the Friedewald equation in the estimation of LDL-C. Ernie SS et al. CASSIE. 2013;310(19): 7183-9454 (http ://education.[employer]cast.com/faq/GYE954) CHOL/HDLC RATIO (test code = CHOL/HDLC RATIO) 3.6 {CALC} <5.0 N NON HDL CHOLESTEROL (test code = NON HDL CHOLESTEROL) 93 {MG/DL CA L} <130 N For patients with diabetes plus 1 major ASCVD risk factor, treating to a non-HDL-C goal of <100 mg/dL (LDL-C of <70 mg/dL) is considered a therapeutic option. [facility]] CMP W/ICXY6869-91-03 07:55:00* Test Item Value Reference Range Interpretation Comments GLUCOSE; Above High Threshold (test code = 1547-9) 112 mg/dl 65- 99 Fasting reference interval For someone without known diabetes, a glucose valuebetween 100 and 125 mg/dL is consistent withprediabetes and should be confirmed with afollow-up test. UREA NITROGEN (BUN) (test code = UREA NITROGEN (BUN)) 12 mg/dl 7-25 N CREATININE (test code = CREATININE) 1.13 mg/dl 0.60-1.35 N eGFR NON- (test code = eGFR NON-LISHA N MOLDOVAN) 76 {ML/MIN/1.7} > OR = 60 N eGFR (test code = eGFR ) 88 {ML/MIN/1.7} > OR = 60 N BUN/CREATININE RATIO (test code = BUN/CREATININE RATIO) NOT APPLICA BLE 6-22 SODIUM (test code = SODIUM) 138 mmol/L 135-146 N POTASSIUM (test code = POTASSIUM) 4.3 mmol/L 3.5-5.3 N CHLORIDE (test code = CHLORIDE) 98 mmol/L 98-110 N CARBON DIOXIDE (test code = CARBON DIOXIDE) 27 mmol/L 20-31 N CALCIUM (test code = CALCIUM) 9.9 mg/dl 8.6-10.3 N PROTEIN, TOTAL (test code = PROTEIN, TOTAL) 7.8 g/dl 6.1-8.1 N ALBUMIN (test code = ALBUMIN) 4.5 g/dl 3.6-5.1 N GLOBULIN (test code = GLOBULIN) 3.3 {G/DL CALC} 1.9-3.7 N ALBUMIN/GLOBULIN RATIO (test code = ALBUMIN/GLOBULIN RATIO) 1.4 {CALC} 1.0-2.5 N BILIRUBIN, TOTAL; Normal (test code = 04682-1) 0.6 mg/dl 0.2-1.2 N ALKALINE PHSPHATASE (test code = ALKALINE PHSPHATASE) 52 u/l 40-115 N AST; Normal (test code = 1916-6) 19 u/l 10-40 N ALT; Normal (test code = 1742-6) 18 u/l 9-46 N [facility]] MICROALBUMIN, RANDOM URINE (W/CREATININE) 2017-06-25 07:55:00* Test Item Value Reference Range Interpretation Comments CREATININE, RANDOM URINE (test code = CREATININE, RANDOM URI NE) 124 mg/dl 20-370 N MICROALBUMIN (test code = MICROALBUMIN) 1.4 mg/dl N Reference RangeNot established MICROALBUMIN/CREATININE RATIO, RANDOM UR INE (test code = MICROALBUMIN/CREATININE RATIO, RANDOM URINE) 11 {MCG/MG CRE} <30 N The ADA de fines abnormalities in albuminexcretion as follows: Category Result (mcg/mg creatinine) Normal <30Microalbuminuria 30-299 Clinical albuminuria > OR = 300 The ADA recommends that at least two of threespecimens collected within a 3-6 month period beabnormal before considering a patient to bewithin a diagnostic category. [facility] PhysiciansGlucose (Point of Care In Office)2017-06-20 16:04:00* Test Item Value Reference Range Interpretation Comments Glucose POC Lifescan (test code = Glucose POC Lifescan) 155 [facility][O] Hemoglobin A1c (in office)2017-06-20 16:04:00 * Test Item Value Reference Range Interpretation Comments HEMOGLOBIN A1c (test code = 4548-4) 7.4 [facility]iciansGlucose (Point of Care In Office)2017-03-18 16:02:00* Test Item Value Reference Range Interpretation Comments Glucose POC Lifescan (test code = Glucose POC Lifescan) 109 [facility][O] Hemoglobin A1c (in office)2017-03-18 16:02:00 * Test Item Value Reference Range Interpretation Comments HEMOGLOBIN A1c (test code = 4548-4) 8.1 [facility]
[2019-10-29 07:41] LABS: BASOPHILS % 0.5 % (0.0-1.0); EOSINOPHILS # (AUTO) 0.1 (0.0-0.4); EOSINOPHILS % 1.3 % (0.0-6.0); HEMATOCRIT 49.4 % (38.2-49.6); HEMOGLOBIN 16.1 g/dL (14.0-18.0); LYMPHOCYTES # (AUTO) 2.2 (1.0-3.2); LYMPHOCYTES % 27.5 % (18.0-39.1); MEAN CORPUSCULAR HEMOGLOBIN 29.9 pg (28-32); MEAN CORPUSCULAR HGB CONC 32.6 g/dL (31-35); MEAN CORPUSCULAR VOLUME 91.8 fL (81-99); MONOCYTES # (AUTO) 0.8 (0.2-0.8); MONOCYTES % 10.2 % (4.4-11.3); NEUTROPHILS # (AUTO) 4.8 (2.1-6.9); PLATELET COUNT 219 x10e3/uL (140-360); RED BLOOD COUNT 5.38 x10e6/uL (4.3-5.7); RED CELL DISTRIBUTION WIDTH 14.5 % (11.7-14.4)
[2019-10-29] MEDS: NITROGLYCERIN 0.4 MG SUBL SL PRN ×4 (07:43→08:55)
[2019-10-29] MEDS ORDERED: HEPARIN 25,000 UNIT 800 UNIT in DEXTROSE 5% 250ML 250 ML IV SCH (08:00)
[2019-10-29] MEDS ORDERED: HEPARIN SOD (PORCINE) 1000 UNIT/ML SDV IV ONE (08:00)
[2019-10-29 08:13] LABS: ALBUMIN 4.1 g/dL (3.5-5.0); ALBUMIN/GLOBULIN RATIO 0.9 (0.8-2.0); ANION GAP 23.1 mmol/L (8-16); CALCIUM 10.1 mg/dL (8.4-10.2); CREATININE, SERUM 1.28 mg/dL (0.72-1.25); MAGNESIUM 1.6 MG/DL (1.3-2.1); POTASSIUM 4.1 mmol/L (3.5-5.1)
[2019-10-29 08:16] LABS: INR 0.9; PROTHROMBIN TIME 12.6 seconds (11.9-14.5)
[2019-10-29 08:19] LABS: CREATINE KINASE MB 1.4 ng/mL (0-5.0)
[2019-10-29] MEDS ORDERED: MORPHINE SULFATE INJ 4 MG/ML INJ 1ML IV PRN (08:30)
[2019-10-29] MEDS ORDERED: ONDANSETRON HCL INJ 2MG/ML 2ML 2 MG/ML VIAL IV PRN ×2 (08:30→13:15)
[2019-10-29] MEDS ORDERED: MORPHINE SULFATE INJ 4 MG/ML INJ 1ML IV STA (08:51)
--- NOTE | 2019-10-29 08:54 | Diagnostic Imaging Report ---
TECHNIQUE: Frontal view of the chest. INDICATION: ^Y ^CP ^[id number] ^0800 COMPARISON: 10/23/2018 DISCUSSION: Limited evaluation due to portable technique. Lines and hardware: Overlying EKG leads are noted. Heart and mediastinum: Cardiomediastinal silhouette is top normal in size, stable. Pulmonary vascularity is within normal limits. Trachea projects midline. Lungs and pleura: No focal airspace consolidation. No pleural effusion. No pneumothorax. Soft tissues and bones: No acute abnormality. IMPRESSION: Negative for acute intrathoracic process. Signed by: Luis Dempsey MD on 10/29/2019 8:51 AM
--- OUTSIDE RECORDS SUMMARY | 2019-10-29 09:05 | XMS REPORT | Continuity of Care Document ---
Author Author [employer] Information [employer] Address Unknown Phone Unavailable Care Team Providers Care Podiatric Medicine Professor Name Role Phone [employer] Information Exchange Unavailable Un available Problems Problem Status Onset Date Classification Date Reported Comments Source Pure hypercholesterolemia Acti ve Problem 02/2018 Mohamed O Lauryn CAD in [place] artery Active Diagnosis 11/16/2017 Mohamed O Lauryn [...] Active Problem 11/13/2014 Mohamed Scotty Mackdi CAD, [place] Coronary Artery Ac tive Problem 11/2014 Mohamed Scotty Mackdi Hypertension Active 07/07/2013 [facility] Diabetes Mellitus Active 07/07/2013 [facility] Abnormal Liver Function Test A ctive 07/07/2013 [facility] Cirrhosis Active 07/07/2013 [facility] Coronary Artery Disease Active 07/07/2013 [facility] Insomnia Active 07/07/2013 [facility] Headache Active 07/07/2013 [facility] Keloid Scar Active 07/07/2013 [facility] Dermatitis Active 07/07/2013 [facility] External Hemorrhoids With Bleeding Active 07/07/2013 [facility] Dyspepsia Active 07/07/2013 [facility] TMJ Pain Active 07/07/2013 [facility] Acute Otitis Externa Active 07/07/2013 [facility] 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 07/07/2013 [facility] Medications Medication Details Route Status Patient Instructions Ordering Provider Order Date Source Zolpidem Tartrate ER 12.5 MG Oral Tablet Extended Release ; Start Date: 07/06/2013 (Active) Active 07/06/2013 [facility] Ciprodex 0.3-0.1 % Otic Suspension ; Start Date: 06/23/2013; End Date: (Active) Active 06/23/2013 [facility] Lisinopril 5 MG Oral Tablet ; Start Date: 04/13/2013 (Active) Active 04/13/2013 [facility] Januvia 100 MG Oral Tablet ; S tart Date: ; End Date: (Active) Inactive [facility] MetFORMIN HCl 1000 MG Oral Tablet ; Start Date: ; End Date: 08/14/2013 (Active) Active [facility] Plavix 1 tablet Orally Active 75 MG Orally Once a day [facility] O Lauryn Lisinopril 1 tablet Orally Active 5 MG Orally Once a day [facility] O Lauryn Lisinopril 1 tablet Orally Active 5 MG Orally Once a day [facility] O Lauryn Lipitor 1 tablet Orally Active 10 mg [facility] Metoprolol Tartrate 1/2 half t ablet Orally Active 100 MG Orally Twice a day [facility] Lauryn Metoprolol Tartrate 1 capsule by mouth Active 50 MG by mouth Twice a day [facility] Lauryn Atorvastatin Calcium 1 tablet Orally Active 10 mg Orally Once a day [facility] [place] Nitroglycerin 0.4 MG SUBL (Ac tive) Active [facility] MetFORMIN HCl 1000 MG Oral Tablet (Active) Active [facility] Januvia 100 MG Oral Tablet [...] [facility] Treximet TABS (Active) Active [facility] Imitrex 50 MG Oral Tablet (Ac tive) Active [facility] Byetta 5 MCG Pen 5 MCG/0.02ML Subcutaneous Solution (Active) Active [facility] Propranolol HCl 60 MG Oral Tablet (Active) Active [facility] Zolpidem Tartrate ER 12.5 MG Oral Tablet Extended Release (Active) A ctive [facility] Aspirin 81 MG Oral Tablet (Ac tive) Active [facility] Protonix 40 MG Oral Tablet Delayed Release (Active) Active [facility] Metoprolol Succinate ER 100 MG Oral Tabl et Extended Release 24 Hour (Active) A ctive [facility] Vasculera Oral Tablet (Active) Active [facility] Allergies, Adverse Reactions, Alerts Substance Category Reaction Severity Reaction type Status Date Reported Comments Source Demerol TABS drug allergy drug allergy Active [facility] Immunizations Immunization Date Given Site Status Last Updated Comments Source Influenza 12/31/[address] [facility] Results No Data Provided for This [...] ADM Date DC Date Status Source AUDIT [id number] 11/03/2012 11/03/2012 [facility] AUDIT [id number] 03/09/2013 03/09/2013 [facility] AUDIT [id number] 04/27/2013 04/27/2013 [facility] AUDIT [id number] 05/04/2013 05/04/2013 [facility] AUDIT [id number] 05/08/2013 05/08/2013 [facility] AUDIT [id number] 05/10/2013 05/10/2013 [facility] AUDIT [id number] 05/16/2013 05/16/2013 [facility] AUDIT [id number] 05/31/2013 05/31/2013 [facility] AUDIT [id number] 06/23/2013 06/23/2013 [facility] AUDIT [id number] 07/04/2013 07/04/2013 [facility] AUDIT [id number] 07/07/2013 07/07/2013 [facility] NPD, Provi fabrizio: [place], Status: Pen, Time: 2:45 PM [id number] 08/21/19 14 07/07/2013 [facility] Lucinda Combs MD PA Unknown [id number] 10/10/19 14 10/09/2013 Lucinda Combs MD PA Unknown [id number] 10/10/19 14 10/09/2013 MD FAISAL Hensley Unknown [id number] 10/10/19 14 10/09/2013 MD FAISAL Hensley Unknown [id number] 10/30/19 14 10/29/2013 MD FAISAL Hensley Unknown [id number] 10/30/19 14 10/29/2013 MD FAISAL Hensley Unknown [id number] 07/23/19 15 07/22/2014 MD FAISAL Hensley Unknown [id number] 08/20/19 15 08/19/2014 Lucinda Combs MD PA Unknown [id number] 08/27/19 15 08/26/2014 Lucinda Combs MD PA Unknown [id number] 11/13/19 15 11/12/2014 Lucinda Combs Procedures No Data Provided for This Section Assessment and Plan No Data Provided for This Section Plan of Care Plan of Care Date Source ENT Referral 07/07/2013 Routine 07/07/2013 [facility] Endocrinology Referral 05/16/2013 Routine 05/16/2013 [facility] Social History Social History Date Source Social History ElementQualifiersDate Rep orted Smoking . Status Never Smoker September 19, 2014 Alcohol Use No. September 19, 2014 Alcohol Screening: No. Points: 0, Interpretation: Negative September 19, 2014 Marital Status: . September 19, 2014 Do you drink alcohol? No. 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 [facility] Family History Value Date S ource Family history of Hypertension (V17.49); (Active) Family history of Coronary Artery Disease (V17.49); (Active) 07/07/2013 [facility] Family history of Hypertension (V17.49); (Active) Family history of Coronary Artery Disease (V17.49); (Active) 07/04/2013 [facility] Family history of Hypertension (V17.49); (Active) Family history of Coronary Artery Disease (V17.49); (Active) 06/23/2013 [facility] Family history of Hypertension (V17.49); (Active) Family history of Coronary Artery Disease (V17.49); (Active) 05/31/2013 [facility] Family history of Hypertension (V17.49); (Active) Family history of Coronary Artery Disease (V17.49); (Active) 05/16/2013 [facility] Family history of Hypertension (V17.49); (Active) Family history of Coronary Artery Disease (V17.49); (Active) 05/10/2013 [facility] Family history of Hypertension (V17.49); (Active) Family history of Coronary Artery Disease (V17.49); (Active) 05/08/2013 [facility] Family history of Hypertension (V17.49); (Active) Family history of Coronary Artery Disease (V17.49); (Active) 05/04/2013 [facility] Family history of Hypertension (V17.49); (Active) Family history of Coronary Artery Disease (V17.49); (Active) 04/27/2013 [facility] Family history of Hypertension (V17.49); (Active) Family history of Coronary Artery Disease (V17.49); (Active) 03/09/2013 [facility] Family history of Hypertension (V17.49); (Active) Family history of Coronary Artery Disease (V17.49); (Active) 11/03/2012 [facility] Advance Directives Order Name Results Value Date Source Advance Directives Advance Dir ectives No Advance Directives available. 07/07/2013 [facility] Advance Directives Advance Dir ectives No Advance Directives available. 07/04/2013 [facility] Advance Directives Advance Dir ectives No Advance Directives available. 06/23/2013 [facility] Advance Directives Advance Dir ectives No Advance Directives available. 05/31/2013 [facility] Advance Directives Advance Dir ectives No Advance Directives available. 05/16/2013 [facility] Advance Directives Advance Dir ectives No Advance Directives available. 05/10/2013 [facility] Advance Directives Advance Dir ectives No Advance Directives available. 05/08/2013 [facility] Advance Directives Advance Dir ectives No Advance Directives available. 05/04/2013 [facility] Advance Directives Advance Dir ectives No Advance Directives available. 04/27/2013 [facility] Advance Directives Advance Dir ectives No Advance Directives available. 03/09/2013 [facility] Advance Directives Advance Dir ectives No Advance Directives available. 11/03/2012 [facility] Functional Status No Data Provided for This Section
--- OUTSIDE RECORDS SUMMARY | 2019-10-29 09:05 | XMS REPORT | Clinical Summary ---
Author Author [facility] Address Unknown Phone Unavailable Care Team Providers Care Item Processing Clerk Name Role Phone Demian James MD [...] Wilman Mendez MD Coronary artery disease involving pokagon coronary artery of [place] heart without angina pectoris 06/22/2019 Hospital Procedural Cardiolo gy Encounter 06/22/2019 Travel Luis Spangler RN Chest Pain 06/21/2019 Telephone Cardiology 06/18/2019 Travel Wilman Mendez MD Coronary artery disease involving [place] coronary artery of [place] heart without angina pectoris 06/14/2019 Lab Procedural Cardiolo gy Wilman Mendez MD 06/14/2019 Lab Lab 06/14/2019 Travel Wilman eMndez MD Coronary artery disease involving [place] coronary artery of [place] heart without angina pectoris (Primary Dx) 06/13/2019 [...] disease PERFUSION IMAGING 9:15 AM CDT involving pokagon co ronary artery of pokagon heart without angina pectoris CV CARDIAC PET STRESS STAT 06/22/2019 Coronary artery disease TEST 9:15 AM CDT involving pok[place] co ronary artery of [place] heart without angina pectoris ECG 12-LEAD Routine 06/14/2019 Coronary artery disease 7:14 AM CDT involving [place] coronary artery of [place] heart without angina pectoris LIPID PANEL Routine 06/13/2019 Coronary artery disease 1:35 PM CDT involving pok[place] coronary artery of [place] heart without angina pectoris TROPONIN Routine 06/13/2019 Coronary artery disease 1:35 PM CDT involving pok[place] coronary artery of [place] heart without angina pectoris after 10/28/2018 Results * CV Cardiac PET Myocardial Perfusion Imaging (06/22/2019 9:15 AM CDT) Specimen Narrative Performed At [facility] See PDF file for full result Procedure Note Interface, Radiology Results In - 06/26/2019 6:38 PM CDT See PDF file for full result Performing Organization Address City/State/Zipcode Ph one Number [facility] [address] [place] [address] * Cv stress test (06/22/2019 9:15 AM CDT) Resting HR 72 [facility] Resting BP 130 [facility] Peak MET 1.0 [facility] Achieved Protocol Name Raul [facility] Time in 00:01:00 [facility] [...] is n ot available. Performing Organization Address [facility] one Number [facility] [address] [place] [address] * ECG 12 lead (06/14/2019 7:14 AM CDT) Ventricular 68 [facility] rate Atrial rate 68 [facility] [place] interval 156 [facility] QRSD interval 110 [...] is n ot available. Performing Organization Address [facility] one Number [facility] [address] [place] [address] * Troponin (06/13/2019 1:35 PM CDT) Troponin <0.01 < OR = 0.05 ng/mL [facility] Comment: DIAGNOSTICS In accord with published [facility] recommendations, serial testing of troponin I at intervals of 2 to 4 hours for up to 12 to 24 hours is suggested in order to corroborate a single troponin I result. An elevated troponin alone is not sufficient to make the diagnosis of NV. For additional information, please refer to http://education.Adaptive TCR.NextMedium/faq/EFY794 (This link is being provided for informational/ educational purposes only.) Specimen Blood Resulting Agency Comment Performing Organization Information: Site ID: [id number] Name: [facility] Address: [address] [place] [phone] Director: Ian Christian Performing Organization Address City/[facility] Ph one Number [facility] [employer] [place] [address] [place] [phone] * Lipid panel (06/13/2019 1:35 PM CDT) [facility] Cholesterol, 132 <200 mg/dL [facility] total [facility]AGNOST[facility] [place] HDL cholesterol 38 (L) > OR = 40 mg/dL [facility] [place] Triglycerides 272 (H) <150 mg/dL [facility] Comment: DIAGNOSTICS If a non-fasting specimen was VANCE collected, consider repeat triglyceride testing on a fasting specimen if clinically indicated. Fatimah et al. J. of Clin. Lipidol. 2015;9:129-169. LDL cholesterol 62 mg/dL (calc) [facility] calculated Comment: DIAGNOSTICS Reference range: <100 [facility] Desirable range <100 mg/dL for primary prevention; <70 mg/dL for patients with CHD or diabetic patients with > or = 2 CHD risk factors. LDL-C is now calculated using the Ernie-Veronica calculation, which is a validated novel method providing better accuracy than the Friedewald equation in the estimation of LDL-C. Ernie GODOY et al. CASSIE. 2013;310(19): 8717-0350 (http://education.Ketera.NextMedium/faq/ACA054) Cholesterol/HDL 3.5 <5.0 (calc) [facility] ratio [facility]AGNO[facility] [place] Non-HDL 94 <130 mg/dL (calc) [facility] cholesterol Comment: DIAGNOSTICS For patients with diabetes [place] plus 1 major ASCVD risk factor, treating to a non-HDL-C goal of <100 mg/dL (LDL-C of <70 mg/dL) is considered a therapeutic option. 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
--- OUTSIDE RECORDS SUMMARY | 2019-10-29 09:06 | XMS REPORT | Continuity of Care Document ---
Author Author [facility] t Organization [facility] Address [address] [place] [address] [address] [place] [address] Phone Unavailable Care Team Providers Care Analytics Associate Name Role Phone Roshan JAMES PCP Chato NARANJO Attphys Unavailable BERNADINE ESTEBAN M.D. Attphys Unavailable Aníbal FIGUEROA, Luis Attphys Unavailable Vinod Dent MD Attphys [phone] DREW ONEAL Attphys Unavailable MARIE NOWAK APRN Attphys Unavailable REZA KANG M.D. Attphys Unavailable VINOD HOPKINS P.A. Attphys Unavailable JITENDRA USGGS Attphys Unavailable ADONIS JAMES M.D. Attphys Unavailable BEVERLY ALONSO RD Attphys Unavailable MARIE NOWAK NP Attphys Unavailable DIEGO BERRIOS M.D. Attphys Unavailable RODDY HALEY P.A. Attphys Unavailable KALI KERNS M.D. Attphys Unavailable JIA MERINO NP Attphys Unavailable JITENDRA SUGGS Admphylaura Unavailable Payers Payer Name Policy Type Policy Number Effective Date Expiration Date S cristal BCBSBCBS CHOICE PPO/FEDERAL EMPL [id number] esentPPO xxxxxxxxxxxx 2016 00:00:00 [facility] Ppo [id number] 2016 00:00:00 [facility] Problems Condition Name Condition Details Condition Category [...] tremity Disease Active 2018-07-26 00:00:00 [place] Central perforation of tympanic membrane Central perfo ration of tympanic membrane Disease Active 2018-07-26 00:00:00 [facility] Essential (primary) hypertension Essential (primary) hypertensio n Disease Active 2018-07-26 00:00:00 [place] Eustachian tube disorder Eustachian tube disorder Disease [...] pain Chest pain Problem Active 2015-10-20 00:00:00 [facility] Cellulitis of right lower extremity Cellulitis of right lower ex tremity Problem Active [facility] Sepsis Sepsis Problem Active [facility] History of Acute Myocardial Infarction History of Acute Myoc ardial Infarction Problem Resolved [facility] History of type 2 diabetes mellitus History of type 2 diabetes m ellitus Problem Resolved [facility] Arthralgia of temporomandibular joint Arthralgia of temporom andibular joint Problem Active [facility] Ins[facility]osis [facility]osis [facility] Hypertrophic scar Hypertrophic scar Problem Active [facility] Coronary artery disease Coronary artery disease Problem Active [facility] Central perforation of tympanic membrane Central perfo ration of tympanic membrane Problem Active [facility] Bleeding external hemorrhoids Bleeding external hemorrhoids Problem Active [facility] Hyperlipidemia Hyperlipidemia Problem Active [facility] Apnea Apnea Problem Active [facility] Need for influenza vaccination Need for influenza vaccination Problem Active [facility] Morales's esophagus Morales's esophagus Problem Active [facility] Obstructive sleep apnea Obstructive sleep apnea Problem Active [facility] Sinusitis, acute maxillary Sinusitis, acute maxillary Problem Active [facility] Neuropathy, diabetic Neuropathy, diabetic Problem Active [facility] Erectile dysfunction Erectile dysfunction Problem Active [facility] Eustachian tube disorder Eustachian tube disorder Problem Active [facility] Otalgia of left ear Otalgia of left ear Problem Active [facility] Vasovagal episode Vasovagal episode Problem Active [facility] Abnormal auditory perception, right Abnormal auditory perception , right Problem Active [facility] Dizziness Dizziness [facility] Fatty liver Fatty liver Problem Active [facility] Dyspepsia Dyspepsia Problem [facility] Hemorrhoid Hemorrhoid Problem [facility] Essential (primary) hypertension Essential (primary) hypertensio n Problem Active [facility] Migraine headache Migraine headache Problem Active [facility] Allergic rhinitis Allergic rhinitis Problem Active [facility] LAD (lymphadenopathy), inguinal LAD (lymphadenopathy), inguinal Pro blem Active [facility] Edema of right ankle Edema of right ankle Problem Active [facility] Insulin pump in place Insulin pump in place Problem Active [facility] Diabetes mellitus type 2, uncontrolled Diabetes mellitus typ e 2, uncontrolled Problem Active [facility] Headache Headache [facility] Pneumonia Pneumonia Problem Active [facility] Seasonal allergies Seasonal allergies Problem Active [facility] Post-viral cough syndrome Post-viral cough syndrome Problem Active [facility] Pure hypercholesterolemia Pure hypercholesterolemia Active Problem 11/16/2017 Lucinda Mackdi Problem Active 23-11-11 02:48:56 [facility] Angina of effort Khushi na of effort Active Problem 11/16/2017 Lucinda Smithoudi Problem Active 2017-11-16 02:48:56 Joy Pedraza Palpitations Palp itations Active Problem 11/16/2017 Lucinda Smithoudi Problem Active 2017-11-16 02:48:56 [facility] Diabetes mellitus with complication Diabetes mellitus with complication Active Problem 11/16/2017 Lucinda Smithoudi Problem Active 2017-11-16 02:48:56 [facility] Benign hypertensive heart disease Benign hypertensive heart disease Active Problem 11/16/2017 Lucinda Smithoudi Problem Active 2017-11-16 02:48:56 [facility] S/P PTCA (percutaneous transluminal coronary angioplas ty) S/P PTCA (percutaneous transluminal coronary angioplasty) Active Problem 11/16/2017 Lucinda Mackdi Problem Active 2017-11-16 02:48:56 [facility] Abnormal EKG Abno rmal EKG Active Problem 11/16/2017 Lucinda Smithoudi Problem Active 2017-11-16 02:48:56 Joy Pedraza Diabetes mellitus with complication Diabetes mellitus with complication Active Problem 11/13/2014 Lucinda Smithoudi Problem Active 2014-11-13 02:45:02 [facility] Benign hypertensive heart disease Benign hypertensive heart disease Active Problem 11/13/2014 Lucinda Smithoudi Problem Active 2014-11-13 02:45:02 [facility] Hypercholesterolemia Hype rcholesterolemia Active Problem 11/13/2014 Lucinda Smithoudi Problem Active 2014-11-13 02:45:02 [facility] Angina Khushi na Active Problem 11/13/2014 Lucinda Smithoudi Problem Active 2014-11-13 02:45:02 [facility] 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 Car otid art occ w/o infarc Active Problem 11/13/2014 Lucinda Smithoudi Problem Active 2014-11-13 02:45:02 [facility] Chest Pain Ches t Pain Active Problem 11/13/2014 Lucinda mSithoudi Problem Active 2014-11-13 02:45:02 [facility] S/P PTCA (percutaneous transluminal coronary angioplas ty) S/P PTCA (percutaneous transluminal coronary angioplasty) Active Problem 11/13/2014 Lucinda Combs Problem Active 2014-11-13 02:45:02 [facility] Abnormal ECG Abno rmal ECG Active Problem 11/13/2014 Lucinda Combs Problem Active 2014-11-13 02:45:02 Joy Pedraza Unstable Angina Unst able Angina Active Problem 11/13/2014 Lucinda Combs Problem Active 2014-11-13 02:45:02 [facility] CAD, [place] Coronary Artery CA D, [place] Coronary Artery Active Problem 11/13/2014 Lucinda Combs Problem Active 2014-11-13 02:45:02 [facility] Hypertension Hype rtension Active 07/07/2013 [facility] Problem Active 2013-07-07 16:00:13 Jamin Pedraza Diabetes Mellitus Diab etes Mellitus Active 07/07/2013 [facility] Problem Active 2013-07-07 [facility]13 [facility] Abnormal Liver Function Test A bnormal Liver Function Test Active 07/07/2013 [facility] Problem Active 2013-07-07 1 6:00:13 [facility] Cirrhosis Cirr hosis Active 07/07/2013 [facility] Problem Active 2013-07-07 16:00:13 [facility] Coronary Artery Disease Shon nary Artery Disease Active 07/07/2013 [facility] Problem Active 2013-07-07 16:00: 13 [facility] Insomnia Inso mnia Active 07/07/2013 [facility] Problem Active 2013-07-07 16:00:13 [facility] Headache Head ache Active 07/07/2013 [facility] Problem Active 2013-07-07 16:00:13 [facility] Keloid Scar Kelo id Scar Active 07/07/2013 [facility] Problem Active 2013-07-07 16:00:13 [facility] Dermatitis Derm atitis Active 07/07/2013 [facility] Problem Active 2013-07-07 16:00:13 [facility] External Hemorrhoids With Bleeding External Hemorrhoids With Bleeding Active 07/07/2013 [facility] Problem Active 2013-07-07 16:00:13 [facility] Dyspepsia Dysp epsia Active 07/07/2013 [facility] Problem Active 2013-07-07 16:00:13 [facility] TMJ Pain TMJ Pain Active 07/07/2013 [facility] Problem Active 2013-07-07 16:00:13 Joy Pedraza Acute Otitis Externa Acut e Otitis Externa Active 07/07/2013 [facility] Problem Active 2013-07-07 16:00:13 Joy Pedraza Central Perforation Of The Tympanic Membrane 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 07/07/2013 [facility] Problem Active 2013-07-07 16:00:13 Dex Pedraza Allergies, Adverse Reactions, Alerts Allergy Name Allergy Type Status Severity Reaction(s) Onset Date Inacti ve Date Treating Clinician Comments Source meperidine HCl Allergy to Substance Active Moderate EXTREME VOM ITING 2018-03-05 00:00:00 [facility] Meperidine Propensity to adverse reactions to drug Active GI Intolerance 2016-09-13 00:00:00 Nausea, and vomitting [place] Demerol TABS Allergy to drug (finding) Active [facility] Bactrim TABS Allergy to drug (finding) Active [facility] Demerol TABS Demerol TABS Active Joy Pedraza Family History Family Member Diagnosis Comments Start Date Stop Date Source Unknown Family Member Family history of Hypertension Family History [facility] Unknown Family Member Family History 2012-11-03 09:16:02 2 09:16:02 Joy Pedraza Mother Family history of diabetes mellitus [facility] Mother Family history of hypertension [facility] Mother Family history of hyperlipidemia [facility] Natural father No Known Problems Zenaida Wallace Natural mother Diabetes [facility] Natural mother Hypertension Rajiv Wallace Natural sister Diabetes [facility] Natural sister Hypertension Rajiv Wallace [...] EVERY 4 TO 6 HOURS NEEDED. [facility] Levocetirizine Dihydrochloride 5 MG Oral Tablet Levoce tirizine Dihydrochloride 5 MG Oral Tablet 2019-10-11 00:00:00 Yes BERNADINE ESTEBAN M.D. TAKE 1 TABLET BY MOUTH EVERY DAY [facility] Fluticasone Propionate 50 MCG/ACT Nasal Suspension Flu ticasone Propionate 50 MCG/ACT Nasal Suspension 2019-10-11 00:00:00 Yes BERNADINE Duque QD USE 1 SPRAY IN EACH NOSTRIL ONCE DAILY. [facility] traMADol (ULTRAM) 50 mg tablet 2019-06-13 12:17:07 Yes 50mg Q6H Take 50 mg by mouth every 6 (six) hours as needed for moderate pain. Rajiv Wallace promethazine (PHENERGAN) 25 MG tablet 2019-06-13 12:17:07 [...] under the skin daily before dinner. Rajiv Wallace divalproex (DEPAKOTE) 250 MG EC tablet 2019-06-13 12:17:07 Yes 250mg QD Take 250 mg by mouth every morning. Wily Wallace divalproex (DEPAKOTE) 250 MG EC tablet 2019-06-13 12:17:07 Yes 500mg QD Take 500 mg by mouth nightly. Rajiv desouza empagliflozin (JARDIANCE) 25 mg tablet 2020-04-0 8 12:17:04 2019-06-13 00:00:00 No 25mg QD Take 25 mg [...] MG Oral Tablet Disintegrating 2018-10-30 00:00:00 Yes [facility] metoprolol tartrate (LOPRESSOR) 50 [...] 1 TABLET BY MOUTH EVERY M ORNING [facility] metoprolol tartrate (LOPRESSOR) 50 mg [...] Suggs Md 500 Four Times Daily [facility] NovoLOG 100 UNIT/ML Subcutaneous Solution NovoLOG 100 UNIT/ML Subcutaneous Solution 2018-01-09 00:00:00 Yes REZA KANG M.D. per insulin pump: basal: MN 0.25, 4AM 0.3, ICR 1:8 g, ISF 1:50>100-120 MDD:50 U [facility] Lisinopril 2017-11-16 02:48:56 Yes Lucinda Combs 1 tablet [facility] Lancets 2017-11-08 15:25:02 Yes KHADIJAH KANG M.D. CHECK BLOOD SUGAR FOUR times daily [facility] Contour Next Test In Vitro Strip Contour Next Test In Vitro Strip 2017-09-19 00:00:00 Yes MARIE NOWAK APRN use to check BG 4xs d aily [facility] Gayatri Contour Monitor w/Device Kit Gayatri Contour Monitor w/D evice Kit 2017-08-19 00:00:00 Yes REZA KANG M.D. USE DIRECTED BG CH MAL [facility] pramipexole (MIRAPEX) 0.25 MG tablet 2016-09-04 00:00:00 Ye s .25mg QD Take 0.25 mg by mouth nightly. Rajiv Wallace JANUMET 50-1,000 mg per tablet 2016-09-03 00:00:00 Yes 1{tbl} Q.5D Take 1 tablet by mouth 2 (two) times a day with meals. Rajiv Sandovalist Plavix 2016-07-27 02:45:27 Yes Lucinda Smithcherry 1 tablet [facility] Lisinopril 2016-07-27 02:45:27 Yes Lucinda Combs 1 tablet [facility] montelukast (SINGULAIR) 10 mg tablet 2016-06-29 00:00: 00 2019-06-13 00:00:00 No 10mg QD Take 10 mg by mouth nightly. Rajiv Wallace Metoprolol Tartrate 2016-06-23 02:45:06 Yes Lucinda Smithcherry 1 capsule [facility] Atorvastatin Calcium 2016-06-17 02:45:17 Yes Lucinda Smithcherry 1 tablet [facility] Metoprolol Tartrate 2016-05-29 02:45:02 Yes Lucinda Montenegro boris 1/2 half tablet [facility] BD Pen Needle Sybil U/F 32G X 4 MM BD Pen Needle Sybil U/F 32G X 4 MM 2016-02-23 00:00:00 Yes MARIE NOWAK DROP FORGER HELPER use to inject 4xs andrey ly [facility] NovoLOG FlexPen 100 UNIT/ML Subcutaneous Solution Pen- injector NovoLOG FlexPen 100 UNIT/ML Subcutaneous Solution Pen-injector 2016-02-23 00:00:00 Yes MARIE NOWAK DROP FORGER HELPER inject ICR 1:10 g with breakfast and lunch and 1:9 g with dinner plus CF 1:50 mg/dL MDD:30 U [facility] Janumet 50-1000 MG Oral Tablet Janumet 50-1000 MG Oral Table t 2015-11-13 00:00:00 Yes REZA SONG KE 1 TABLET BY MOUTH TWICE DAILY WITH MEALS [facility] Dexlansoprazole (Dexilant) 60 Mg Cap., 60 Mg Oral Dexlansoprazole (Dexilant) 60 Mg Cap., 60 Mg Oral 2015-10-24 00:00:00 2016-09-04 00:00:00 No Jitendra Suggs Md 60 Twice A Day [facility] traMADol HCl - 50 MG Oral Tablet traMADol HCl - 50 MG Oral T ablet 2015-10-08 00:00:00 Yes MARIE NOWAK APRN TAKE 1 TABLET EVERY 4 TO 6 HOURS NEEDED FOR PAIN. [facility] Lipitor 2014-11-13 02:45:02 Yes Lucinda Combs 1 tablet Joy Rauschann Lisinopril 10 MG Oral Tablet Lisinopril 10 MG Oral Tablet 2013-09-05 9 00:00:00 Yes TAKE 1 TABLET BY MOUTH ONCE DAILY [facility] Lisinopril 5 MG Oral Tablet 2013-07-07 16:00:13 Yes (Active) Joy Lackey Plavix 75 MG Oral Tablet 2013-07-07 16:00:13 Yes (Active) Joy Lackey Atorvastatin Calcium 20 MG Oral Tablet 2013-07-07 16:00:13 Yes (Active) Joy Milo Pepcid 40 MG Oral Tablet 2013-07-07 16:00:13 Yes (Active) Joy Milo Aspirin 81 MG Oral Tablet 2013-07-07 16:00:13 Yes (Active) Joy Milo Metoprolol Succinate ER 100 MG Oral Tablet Extended Release 24 Hour 2013-07-07 16:00:13 Yes (Active) Memor ial Mil[facility] Zolpidem Tartrate ER 12.5 MG Oral Tablet Extended Release 2013-07-06 05:00:00 Yes ; Start Date: 07/06/2013 (Active ) Joy Rauschann Zolpidem Tartrate ER 12.5 MG Oral Tablet Extended Release 2013-07-04 18:47:49 Yes (Active) Tano Lara Vasculera Oral Tablet 2013-07-04 18:47:49 Yes (Active) Joy Rauschann Ciprodex 0.3-0.1 % Otic Suspension 2013-06-23 05:00:00 Yes ; Start Date: 06/23/2013; End Date: (Active) Joy Pedraza Propranolol HCl 60 MG Oral Tablet 2013-05-31 22:03:51 Yes (Active) Joy Lackey Metoprolol Succinate ER 100 MG Oral Tablet Extended Release 24 Hour 2013-05-16 18:31:41 Yes (Active) Memor ial [facility] Protonix 40 MG Oral Tablet Delayed Release 2013-05-10 18:16:49 Yes (Active) Joy Pedraza MetFORMIN HCl 1000 MG Oral Tablet 2013-04-27 15:17:29 Yes (Active) Joy Pedraza Januvia 100 MG Oral Tablet 2013-04-27 15:17:29 Yes (Active) Joy Lackey Lisinopril 5 MG Oral Tablet 2013-04-13 06:00:00 [...] MCG/0.02ML Subcutaneous Solution 03-09 19:01:25 Yes (Active) [facility] Melva murphy Ambien CR 12.5 MG Oral Tablet Extended Release 2012-11-03 09:16: 02 Yes (Active) Joy Villafuerte n Januvia 100 MG Oral Tablet Yes ; Start Date: ; End Date: (Active) Joy Pedraza MetFORMIN HCl 1000 MG Oral Tablet Yes ; Start Date: ; End Date: 08/14/2013 (Active) Joy Rauschann Atorvastatin Calcium 10 Mg Tablet Atorvastatin Calcium 10 Mg Tablet Yes 20 Today At 9:00PM [facility] Clopidogrel Bisulfate (Plavix) 75 Mg Tablet Clopidogre l Bisulfate (Plavix) 75 Mg Tablet Yes 75 Daily [facility] Divalproex Sodium 250 Mg Tablet. Divalproex Sodium 250 Mg Tablet. Yes 250 Daily [facility] Isosorbide Mononitrate (Isosorbide Mononitrate Er) 30 Mg Tab.er.24h Isosorbide Mononitrate (Isosorbide Mononitrate Er) 30 Mg Tab.er.24h Yes 90 Daily [facility] Jardeiance Jardeiance Yes 25 Daily [facility] Lisinopril 2.5 Mg Tablet Lisinopril 2.5 Mg Tablet Yes 5 Daily [facility] Metoprolol Tartrate 50 Mg Tablet Metoprolol Tartrate 50 Mg Tablet Yes 50 Twice A Day [facility] Mextaxalone Mextaxalone Yes 800 Three Times A Da y [facility] Montelukast Sodium 10 Mg Tablet Montelukast Sodium 10 Mg Tablet Yes 10 Daily@1700 [facility] Nitroglycerin (Nitrostat) 0.4 Mg Tab.subl Nitroglyceri n (Nitrostat) 0.4 Mg Tab.subl Yes .4 As Needed as needed for Pain [facility] Pramipexole Di-Hcl (Pramipexole Dihydrochloride) 0.25 Mg Tablet Pramipexole Di- Hcl (Pramipexole Dihydrochloride) 0.25 Mg Tablet Yes 1 Daily [facility] Promethazine Hcl 25 Mg Tablet Promethazine Hcl 25 Mg Tablet Yes 25 Daily for Nausea [facility] Sitagliptin Phos/Metformin Hcl (Janumet 50-1,000 Mg Ta blet) 1 Each Tablet Sitagliptin Phos/Metformin Hcl (Janumet 50-1,000 Mg Tablet) 1 Each Tablet Yes 1 Twice A Day [facility] Sitagliptin Phos/Metformin Hcl (Janumet 50-1,000 Mg Ta blet) 1 Each Tablet Sitagliptin Phos/Metformin Hcl (Janumet 50-1,000 Mg Tablet) 1 Each Tablet Yes Twice A Day [facility] Tramadol Hcl (Ultram) 50 Mg Tablet Tramadol Hcl (Ultram) 50 Mg Tablet Yes 50 Every 6 Hours as needed for Pain [facility] Atorvastatin Calcium 20 MG Oral Tablet Atorvastatin Calcium 20 M G Oral Tablet Yes [facility] Metoprolol Tartrate 100 MG Oral Tablet Metoprolol Tartrate 100 M G Oral Tablet Yes Q12H TAKE 1 TABLET EVERY 12 HOURS ANDREY LYKali [facility] Clopidogrel Bisulfate 75 MG Oral Tablet Clopidogrel Bisulfat e 75 MG Oral Tablet Yes 1 QD TAKE 1 TABLET DAILY. [facility] Divalproex Sodium 250 MG Oral Tablet Delayed Release D ivalproex Sodium 250 MG Oral Tablet Delayed Release Yes Q0.3 333D TAKE 1 TABLET 3 TIMES DAILY. [facility] Mirapex 0.25 MG TABS Mirapex 0.25 MG TABS Yes TAKE 1 TO 2 TABLETS AT BEDTIME [facility] Promethazine HCl - 25 MG Oral Tablet Promethazine HCl - 25 MG Oral Tablet Yes MARIE NOWAK DROP FORGER HELPER Q6H TAKE 1 TABLET EVERY 6 HOURS NE EDED. [facility] Isosorbide Mononitrate ER 120 MG Oral Tablet Extended Release 24 Hour Isosorbide Mononitrate ER 120 MG Oral Tablet Extended Release 24 Hour Yes 1 QD TAKE 1 TABLET DAILY. [facility] Ezetimibe 10 MG Oral Tablet Ezetimibe 10 MG Oral Tablet Yes 1 QD TAKE 1 TABLET DAILY. [facility] Clindamycin Hcl 150 Mg Capsule, 300 Mg Clindamycin Hcl 150 Mg Ca psule, 300 Mg 2018-02-17 00:00:00 No 300 Every 8 Hours [facility] Sulfamethoxazole/Trimethoprim (Bactrim Ds Tablet) 1 Ea ch Tablet, 1 Tab Oral Sulfamethoxazole/Trimethoprim (Bactrim Ds Tablet) 1 Each Tablet, 1 Tab Oral 2018-02-17 00:00:00 No 1 Twice A Day [facility] Doxepin Hcl 25 Mg Capsule, 5 % Topical Doxepin Hcl 25 Mg Capsule , 5 % Topical 2018-02-14 00:00:00 No 5 Twice A Day for Itch ing Of Foot [facility] Esomeprazole Magnesium (Nexium) 2.5 Mg Suspdr.pkt, 22. 3 Mg Esomeprazole Magnesium (Nexium) 2.5 Mg Suspdr.pkt, 22.3 Mg 2018-02-14 00:00:00 No 22.3 [facility] Fluocinonide/Emollient (Fluocinonide-E 0.05% Cream) 15 Gm Cream..g., 0.1 % Fluocinonide/Emollient (Fluocinonide-E 0.05% Cream) 15 Gm Cream..g., 0.1 % 2018-02-14 00:00:00 No .1 Twice A Day for Derm attis Of Feet [facility] Insuln Asp Prt/Insulin Aspart (Novolog M ix 70-30 Flexpen Syrn) 100 Unit/1 Ml Insuln.pen, Insuln Asp Prt/Insulin Aspart (Novolog M ix 70-30 Flexpen Syrn) 100 Unit/1 Ml Insuln.pen, 2018-02-14 00:00:00 No [facility] Levocetirizine Dihydrochloride 5 Mg Tablet, 5 Mg Oral Levocetirizine Dihydrochloride 5 Mg Tablet, 5 Mg Oral 2018-02-14 00:00:00 No 5 Daily [facility] Lidocaine Hcl/D7.5w/Pf (Lidocaine 5% In D7.5w Ampul) 2 Ml Ampul, 5 % Topical Lidocaine Hcl/D7.5w/Pf (Lidocaine 5% In D7.5w Ampul) 2 Ml Ampul, 5 % Topical 2018-02-14 00:00:00 No 5 Twice A Day for Foot Discomfort [facility] Meclizine Hcl 12.5 Mg Tablet, 25 Mg Oral Meclizine Hcl 12.5 Mg Tablet, 25 Mg Oral 2018-02-14 00:00:00 No 25 Daily as needed fo r Prn [facility] Sitagliptin Phosphate (Januvia) 100 Mg Tablet, 100 Mg Oral Sitagliptin Phosphate (Januvia) 100 Mg Tablet, 100 Mg Oral 2018-02-14 00:00:00 No 100 Daily [facility] Clonidine Hcl 0.1 Mg Tablet, 1 Tab Oral Clonidine Hcl 0.1 Mg Tablet, 1 Tab Oral 2016-09-05 00:00:00 No 1 Twice A Day as needed for Elevated Blood Pressure [facility] Atorvastatin Calcium 10 Mg Tablet, 10 Mg Oral Atorvast atin Calcium 10 Mg Tablet, 10 Mg Oral 2016-09-04 00:00:00 No 10 Today At 9:00 PM [facility] Glimepiride 2 Mg Tablet, 4 Mg Oral Glimepiride 2 Mg Tablet, 4 Mg Oral 2016-09-04 00:00:00 No 4 Am [facility] Glimepiride 1 Mg Tablet, 1 Mg Oral Glimepiride 1 Mg Tablet, 1 Mg Oral 2016-09-04 00:00:00 No 1 Pm [facility] Jardeiance , 10 Mg Oral Jardeiance , 10 Mg Oral 2016-09-04 00:00 :00 No 10 Daily [facility] Metformin Hcl (Metformin Hcl Er) 500 Mg Tab.er.24, 100 0 Mg Oral Metformin Hcl (Metformin Hcl Er) 500 Mg Tab.er.24, 1000 Mg Oral 2016-09-04 00:00:00 No 1000 Twice A Day [facility] Metformin Hcl (Metformin Hcl Er) 500 Mg Tab.er.24h, Me tformin Hcl (Metformin Hcl Er) 500 Mg Tab.er.24h, 2016-09-04 00:00:00 [facility] Ursodiol 300 Mg Capsule, 300 Mg Oral Ursodiol 300 Mg Capsule, 30 0 Mg Oral 2016-09-04 00:00:00 No 300 Daily [facility] Dexlansoprazole (Dexilant) 60 Mg , 60 Mg Oral Dexlansoprazole (Dexilant) 60 Mg Cap, 60 Mg Oral 2015-10-24 00:00:00 No 60 Daily [facility] Flaxseed Oil (Flax Seed Oil) 1,000 Mg Capsule, 1000 Mg Oral Flaxseed Oil (Flax Seed Oil) 1,000 Mg Capsule, 1000 Mg Oral 2015-10-24 00:00:00 No 1000 Daily [facility] Ash Aleman , 2015-10-20 00:00:00 [facility] Lisinopril 40 Mg Tablet, Lisinopril 40 Mg Tablet, 2015-10-20 00: 00:00 [facility] Metformin Hcl 1,000 Mg Tablet, Metformin Hcl 1,000 Mg Tablet, 2015-10-20 00:00:00 [facility] Propranolol Hcl 60 Mg Cap.sa.24h, Propranolol Hcl 60 Mg Cap.sa.2 4h, 2015-10-20 00:00:00 [facility] Sitagliptin Phosphate (Januvia) 100 Mg Tablet, Sitagli ptin Phosphate (Januvia) 100 Mg Tablet, 2015-10-20 00:00:00 [facility] Sumatriptan Succinate 100 Mg Tablet, Sumatriptan Succinate 100 M g Tablet, 2015-10-20 00:00:00 [facility] Zolpidem Tartrate 12.5 Mg Tab.mphase, Zolpidem Tartrate 12.5 Mg Tab.mphase, 2015-10-20 00:00:00 [facility] Immunizations Ordered Immunization Name Filled Immunization Name Date Status Comments Source Influenza 2017-11-21 00:00:00 Completed [facility] Influenza 2016-12-04 00:00:00 Completed [facility] Influenza 2016-01-19 00:00:00 [facility]uv[facility] INJ 2014-01-24 09:23:00 [facility] Influenza 2009-12-31 00:00:00 Completed Unive rs[facility] Vital Signs Vital Name Observation Time [...] BP Systolic 2018-10-30 17:32:00 130 mm[Hg] Location: RITIKA Carlton on: Sitting [facility] BP Diastolic 2018-10-30 17:32:00 97 mm[Hg] Location: RITIKA Carlton on: Sitting [facility] Heart Rate 2018-10-30 17:32:00 91 /min [facility] BP Systolic 2018-10-30 17:29:00 151 mm[Hg] Location: LUE; Positi on: Sitting [facility] BP Diastolic 2018-10-30 17:29:00 99 mm[Hg] Location: SANTOSHE; Positi on: Sitting [facility] Height 2018-10-30 17:29:00 63 [in_us] [facility] Temperature 2018-10-30 17:29:00 97.7 [degF] Method: Temporal [facility] Heart Rate 2018-10-30 17:29:00 97 /min [facility] Respiration Rate 2018-10-30 17:29:00 16 /min [facility] BP Systolic 2018-05-31 14:16:00 116 mm[Hg] Location: ERI; Positi on: Sitting [facility] BP Diastolic 2018-05-31 14:16:00 76 mm[Hg] Location: SANTOSHE; Positi on: Sitting [facility] Height 2018-05-31 14:16:00 63 [in_us] [facility] Weight 2018-05-31 14:16:00 181.375 [lb_av] Unive [facility] Body Mass Index Calculated 2018-05-31 14:16:00 32.13 kg/m2 [facility] Heart Rate 2018-05-31 14:16:00 66 /min [facility] O2 SAT 2018-04-29 09:34:00 97 % Source: RA [facility] BP Systolic 2018-04-29 09:31:00 106 mm[Hg] Location: ERI; Positi on: Sitting [facility] BP Diastolic 2018-04-29 09:31:00 68 mm[Hg] Location: ERI; Positi on: Sitting [facility] Height 2018-04-29 09:31:00 63 [in_us] [facility] Weight 2018-04-29 09:31:00 177.25 [lb_av] Univer [facility] Body Mass Index Calculated 2018-04-29 09:31:00 31.4 kg/m2 [facility] Temperature 2018-04-29 09:31:00 97.5 [degF] Method: Temporal [facility] Heart Rate 2018-04-29 09:31:00 80 /min [facility] Respiration Rate 2018-04-29 09:31:00 16 /min Univ ers[facility] BP Systolic 2018-03-04 11:29:00 134 mm[Hg] Location: LUE; Positi on: Sitting [facility] BP Diastolic 2018-03-04 11:29:00 84 mm[Hg] Location: LUE; Positi on: Sitting [facility] Height 2018-03-04 11:29:00 63 [in_us] [facility]i [facility] Weight 2018-03-04 11:29:00 179.125 [lb_av] [facility] Index Calculated 2018-03-04 11:29:00 31.73 kg/m2 [facility] Temperature 2018-03-04 11:29:00 97.3 [degF] Method: [facility] Heart Rate 2018-03-04 11:29:00 79 /min [facility]i [facility] Respiration Rate 2018-03-04 11:29:00 16 /min [facility] BP Systolic 2018-02-20 17:51:00 133 mm[Hg] Location: LUE; Positi on: Sitting [facility] BP Diastolic 2018-02-20 17:51:00 83 mm[Hg] Location: LUE; Positi on: Sitting [facility] Height 2018-02-20 17:51:00 63 [in_us] [facility]i [facility] Weight 2018-02-20 17:51:00 179 [facility]_av] [facility] Body Mass Index Calculated 2018-02-20 17:51:00 31.71 kg/m2 [facility] Temperature 2018-02-20 17:51:00 97.9 [degF] Method: Temporal [facility] Heart Rate 2018-02-20 17:51:00 83 /min [facility] Respiration Rate 2018-02-20 17:51:00 16 /min [facility] BP Systolic 2018-02-13 16:21:00 127 mm[Hg] Location: LUE; Positi on: Sitting [facility] BP Diastolic 2018-02-13 16:21:00 77 mm[Hg] Location: LUE; Positi on: Sitting [facility] Height 2018-02-13 16:21:00 63 [in_us] [facility] Weight 2018-02-13 16:21:00 184.0 [lb_av] Univers ity [facility] Body Mass Index Calculated 2018-02-13 16:21:00 32.59 kg/m2 [facility] Temperature 2018-02-13 16:21:00 98.1 [degF] Method: [facility]poral [facility] Heart Rate 2018-02-13 16:21:00 89 /min [facility]i [facility] Respiration Rate 2018-02-13 16:21:00 16 /min [facility] BP Systolic 2018-02-09 15:35:00 126 mm[Hg] Location: LURenae; Positi on: Sitting [facility] BP Diastolic 2018-02-09 15:35:00 71 mm[Hg] Location: ERI; Positi on: Sitting [facility] Height 2018-02-09 15:35:00 63 [in_us] [facility] Weight 2018-02-09 15:35:00 182.4 [lb_av] [facility] Body Mass Index Calculated 2018-02-09 15:35:00 32.31 kg/m2 [facility] Heart Rate 2018-02-09 15:35:00 93 /min [facility]i [facility] Temperature 2018-02-09 15:35:00 97.7 [degF] Method: Temporal [facility] Respiration Rate 2018-02-09 15:35:00 16 /min [facility] BP Systolic 2018-02-07 18:39:00 130 mm[Hg] Location: RUE; Positi on: Sitting [facility] BP Diastolic 2018-02-07 18:39:00 84 mm[Hg] Location: RUE; Positi on: Sitting [facility] Height 2018-02-07 18:39:00 63 [in_us] [facility] Weight 2018-02-07 18:39:00 185.125 [lb_av] Unive [facility] Body Mass Index Calculated 2018-02-07 18:39:00 32.79 kg/m2 [facility] Temperature 2018-02-07 18:39:00 97.8 [degF] Method: Temporal [facility] Respiration Rate 2018-02-07 18:39:00 16 /min [facility] Heart Rate 2018-02-07 18:39:00 93 /min [facility] BP Systolic 2018-01-19 15:58:00 150 mm[Hg] [facility] BP Diastolic 2018-01-19 15:58:00 92 mm[Hg] [facility] Heart Rate 2018-01-19 15:58:00 61 /min [facility] BP Systolic 2018-01-19 15:57:00 152 mm[Hg] Location: ERI; Positi on: Sitting [facility] BP Diastolic 2018-01-19 15:57:00 93 mm[Hg] Location: ERI; Positi on: Sitting [facility] Heart Rate 2018-01-19 15:57:00 90 /min [facility] Height 2018-01-19 15:57:00 63 [in_us] [facility] Weight 2018-01-19 15:57:00 183.375 [lb_av] Unive [facility] Body Mass Index Calculated 2018-01-19 15:57:00 32.48 kg/m2 [facility] Temperature 2018-01-19 15:57:00 97.6 [degF] Method: Temporal [facility] Respiration Rate 2018-01-19 15:57:00 16 /min [facility] BP Systolic 2017-12-20 16:10:00 137 mm[Hg] Location: ERI; Positi on: Sitting [facility] BP Diastolic 2017-12-20 16:10:00 87 mm[Hg] Location: ERI; Positi on: Sitting [facility] Height 2017-12-20 16:10:00 63 [in_us] [facility] Weight 2017-12-20 16:10:00 182.375 [lb_av] Unive [facility] Body Mass Index Calculated 2017-12-20 16:10:00 32.31 kg/m2 [facility] Heart Rate 2017-12-20 16:10:00 80 /min [facility] Weight 2017-09-29 17:22:00 180.9 [lb_av] [facility] Body Mass Index Calculated 2017-09-29 17:22:00 32.05 kg/m2 [facility] BP Systolic 2017-09-19 16:26:00 145 mm[Hg] Location: LUE; Positi on: Sitting [facility] BP Diastolic 2017-09-19 16:26:00 88 mm[Hg] Location: LUE; Positi on: Sitting [facility] Height 2017-09-19 16:26:00 63 [in_us] [facility] Weight 2017-09-19 16:26:00 179.125 [lb_av] [facility] Body Mass Index Calculated 2017-09-19 16:26:00 31.73 kg/m2 [facility] Heart Rate 2017-09-19 16:26:00 86 /min [facility] BP Systolic 2017-06-20 16:03:00 133 mm[Hg] Location: LUE; Positi on: Sitting [facility] BP Diastolic 2017-06-20 16:03:00 84 mm[Hg] Location: LUE; Positi on: Sitting [facility] Height 2017-06-20 16:03:00 63 [in_us] [facility] Weight 2017-06-20 16:03:00 184.0625 [lb_av] [facility] Body Mass Index Calculated 2017-06-20 16:03:00 32.61 kg/m2 [facility] Heart Rate 2017-06-20 16:03:00 88 /min [facility] BP Systolic 2017-03-18 16:01:00 118 mm[Hg] Location: LLE; Positi on: Sitting [facility] BP Diastolic 2017-03-18 16:01:00 80 mm[Hg] Location: LLE; Positi on: Sitting [facility] Height 2017-03-18 16:01:00 63 [in_us] [facility] Weight 2017-03-18 16:01:00 182.0625 [lb_av] [facility] Body Mass Index Calculated 2017-03-18 16:01:00 32.25 kg/m2 [facility] Heart Rate 2017-03-18 16:01:00 81 /min [facility] BP Systolic 2017-02-19 10:26:00 130 mm[Hg] Location: LUE; Positi on: Sitting [facility] BP Diastolic 2017-02-19 10:26:00 85 mm[Hg] Location: LUE; Positi on: Sitting [facility] Height 2017-02-19 10:26:00 64 [in_us] [facility]i [facility] Weight 2017-02-19 10:26:00 180.9 [lb_av] [facility] Body Mass Index Calculated 2017-02-19 10:26:00 31.05 kg/m2 [facility] Temperature 2017-02-19 10:26:00 97.8 [degF] Method: Temporal [facility] Heart Rate 2017-02-19 10:26:00 76 /min Location: L Brachial Artery; [facility] Respiration Rate 2017-02-19 10:26:00 18 /min [facility] Procedures Procedure Date / Time Performed Performing Clinician Sour e CV CARDIAC PET STRESS TEST 2019-06-22 09:15:40 Wilman Dent CARDIAC PET MYOCARDIAL PERFUSION IMAGING 2019-06-22 09:15:40 Wilman Dent ECG 12-LEAD 2019-06-14 07:14:45 [facility] TROPONIN 2019-06-13 13:35:00 [facility] LIPID PANEL 2019-06-13 13:35:00 [facility] [[facility]] TSH, 3RD GENERATION W/REFLEX TO FT4 2018-10-30 00:00:00 [facility] [QL] CBC (INCLUDES DIFF/PLT) 2018-10-30 00:00:00 [facility] [QL] CMP W/EGFR 2018-10-30 00:00:00 [facility] [] LIPID PANEL WITH REFLEX TO DIRECT LDL 2018-10-30 00:00:00 [facility] [[facility]] MICROALBUMIN, RANDOM URINE (W/CREATININE) 2018-10-30 00:00 :00 [facility] Ultrasound, renal 2018-03-06 00:00:00 MATTY JHA [facility] X-ray of chest, two views 2018-03-05 00:00:00 CIRA CORNEJO CH I [facility] Computed tomography of abdomen and pelvis with contrast 2017 00:00:00 CIRA CORNEJO [facility] US Gallbladder 2018-02-14 00:00:00 ANTWAN PHIPPS [facility] XRAY Ankle 3 views [id number] 2018-02-13 00:00:00 [facility] XRAY Foot series [id number] 2018-02-13 00:00:00 [facility] US Extremity lower venous Doppler Unilat [id number] 2018-02-07 00:00: 00 [facility] [[facility]] CMP W/EGFR 2017-06-20 00:00:00 [facility] [[facility]] MICROALBUMIN, RANDOM URINE (W/CREATININE) 2017-06-20 00:00 :00 [facility] [[facility]] LIPID PANEL 2017-06-20 00:00:00 [facility] History of Cath Stent Placement [facility] History of Wrist Surgery [facility] History of Back Surgery [facility] History of Cholecystectomy [facility] Plan of Care Planned Activity Planned Date Details Comments Source Future Scheduled Test 2019-12-06 00:00:00 INFLUENZA VACCINE [code = INFLUENZA VACCINE] [facility] Scheduled Test 2018-02-28 00:00:00 COLONOSCOPY SCREEN ING [code = COLONOSCOPY SCREENING] [facility] Scheduled Test 2018-02-28 00:00:00 SHINGLES VACCINES (#1) [code = SHINGLES VACCINES (#1)] [facility] Scheduled Test 2013-07-07 16:00:13 Plan of Care [code = 1877 6-5] [facility] Scheduled Test 2013-05-16 18:31:41 Plan of Care [code = 1877 6-5] [facility] Scheduled Test 1978-02-28 00:00:00 DIABETIC FOOT EXAM [code = DIABETIC FOOT EXAM] [facility] Scheduled Test 1978-02-28 00:00:00 URINE MICROALBUMIN [code = URINE MICROALBUMIN] [facility] Scheduled Test 1968 00:00:00 DIABETIC RETINAL E YE EXAM [code = DIABETIC RETINAL EYE EXAM] [facility] Encounters Start Date/Time End Date/Time Encounter Type Admission Type Attendi [facility] Care Department Encounter ID Source 2019-10-11 15:00:00 2019-10-11 15:00:00 Appointment; SARA ESTEBAN M.D. MOHEYUDDIN, AMINA, M.D. [facility] [id number] [facility] 2019-09-17 16:00:00 2019-09-17 16:00:00 Appointment; SARA ESTEBAN M.D. MOHEYUDDIN, AMINA, M.D. [facility] [id number] [facility] 2019-06-22 00:00:00 2019-06-22 00:00:00 Outpatient THOMAS DENT [facility] [id number] [facility] 2019-06-14 00:00:00 2019-06-14 00:00:00 Outpatient THOMAS DENT [facility] [id number] [facility] 2019-06-14 00:00:00 2019-06-14 00:00:00 Outpatient THOMAS DENT [facility] [id number] [facility] 2019-06-13 00:00:00 2019-06-13 00:00:00 Outpatient THOMAS DENT [facility] [id number] [facility] 2018-10-30 18:45:00 2018-10-30 18:45:00 Appointment; MARIE NOWAK AP RN TRAN, THUY, APRN [facility] [id number] [facility] 2018-05-31 14:00:00 2018-05-31 14:00:00 Appointment; REZA KANG M.D. NASSIF, JULIA, M.D. [facility] [address] [id number] [facility] 2018-04-29 09:45:00 2018-04-29 09:45:00 Appointment; MIGUEL A HOPKINS P.A. SPOONER, JOSEPH, P.A. [facility] [id number] [facility] 2018-03-05 19:24:00 2018-03-13 16:14:00 Discharged Inpatient 1 JITENDRA SUGGS [facility] [id number] [facility] 2018-03-04 13:00:00 2018-03-04 13:00:00 Appointment; ADONIS JAMES M.D. MURPHY, THOMAS, M.D. [facility] [address] [id number] [facility] 2018-02-20 18:45:00 2018-02-20 18:45:00 Appointment; MARIE NOWAK AP RN TRAN, THUY, APRN [facility] [id number] [facility] 2018-02-14 12:04:00 2018-02-17 14:49:00 Discharged Inpatient 1 JITENDRA SUGGS [facility] [id number] [facility] 2018-02-13 16:15:00 2018-02-13 16:15:00 Appointment; MARIE NOWAK AP RN TRAN, THUY, APRN [facility] [id number] [facility] 2018-02-09 15:45:00 2018-02-09 15:45:00 Appointment; MARIE NOWAK AP RN TRAN, THUY, APRN [facility] [id number] [facility] 2018-02-07 19:00:00 2018-02-07 19:00:00 Appointment; MARIE NOWAK AP RN TRAN, THUY, APRN [facility] [id number] [facility] 2018-01-19 16:15:00 2018-01-19 16:15:00 Appointment; MIGUEL A HOPKINS P.A. SPOONER, JOSEPH, P.A. [facility] [id number] [facility] 2017-12-20 16:00:00 2017-12-20 16:00:00 Appointment; REZA KANG M.D. NASSIF, JULIA, M.D. [facility] [address] [id number] [facility] 2017-10-13 08:35:00 2017-10-13 08:35:00 Outpatient Lucinda Combs MD [place] [id number] [employer] 2017-10-10 08:40:00 2017-10-10 08:40:00 Outpatient Lucinda Combs MD [place] [id number] [employer] 2017-10-10 08:00:00 2017-10-10 08:00:00 Appointment; BEVERLY ALONSO RD WRIGHT, TISH, RD [facility] [id number] [facility] 2017-09-29 15:00:00 2017-09-29 15:00:00 Appointment; BEVERLY ALONSO RD WRIGHT, TISH, RD [facility] [id number] [facility] 2017-09-19 16:00:00 2017-09-19 16:00:00 Appointment; REZA KANG M.D. NASSIF, JULIA, M.D. [facility] [address] [id number] [facility] 2017-06-20 16:00:00 2017-06-20 16:00:00 Appointment; REZA KANG M.D. NASSIF, JULIA, M.D. [facility] [address] [id number] [facility] 2017-04-22 12:40:00 2017-04-22 12:40:00 Outpatient Lucinda MALONE [id number] [employer] 2017-03-18 16:00:00 2017-03-18 16:00:00 Appointment; REZA KANG M.D. NASSIF, JULIA, M.D. [facility] [address] [id number] [facility] 2017-02-19 10:15:00 2017-02-19 10:15:00 Appointment; ADONIS JAMES M.D. MURPHY, THOMAS, M.D. [facility] [address] [id number] [facility] 2017-01-24 08:27:00 2017-01-24 08:27:00 Outpatient Lucinda Combs MD [place] [id number] [employer] 2016-12-16 16:00:00 2016-12-16 16:00:00 Appointment; REZA KANG M.D. NASSIF, JULIA, M.D. [facility] [address] [id number] [facility] 2016-08-03 16:00:00 2016-08-03 16:00:00 Appointment; REZA KANG M.D. NASSIF, JULIA, M.D. [facility] UTP [id number] [facility] 2016-07-26 13:51:00 2016-07-26 13:51:00 Outpatient Lucinda MALONE [id number] [employer] 2016-07-26 07:59:00 2016-07-26 07:59:00 Outpatient Lucinda Combs MD [place] [id number] [employer] 2016-07-26 07:57:00 2016-07-26 07:57:00 Outpatient Lucinda Combs MD [place] [id number] [employer] 2016-06-22 16:02:00 2016-06-22 16:02:00 Outpatient Lucinda Combs MD [place] [id number] [employer] 2016-06-16 10:55:00 2016-06-16 10:55:00 Outpatient Lucinda Combs MD PA [id number] [employer] 2016-05-28 13:39:00 2016-05-28 13:39:00 Outpatient Lucinda Combs MD [place] [id number] [employer] 2016-05-28 09:31:00 2016-05-28 09:31:00 Outpatient Lucinda Combs MD [place] [id number] [employer] 2016-05-03 14:00:00 2016-05-03 14:00:00 Appointment; REZA KANG M.D. NASSIF, JULIA, M.D. [facility] UTP [id number] [facility] 2016-03-25 18:45:00 2016-03-25 18:45:00 Appointment; MARIE NOWAK NP TRAN, THUY, NP [facility] UTP [id number] [facility] 2016-03-25 13:00:00 2016-03-25 13:00:00 Appointment; DIEGO BERRIOS M.D. BYRD, MICHAEL, M.D. UTP UTP [id number] [facility] 2016-02-23 08:00:00 2016-02-23 08:00:00 Appointment; REZA KANG M.D. NASSIF, JULIA, M.D. [facility] UTP [id number] [facility] 2015-11-13 15:30:00 2015-11-13 15:30:00 Appointment; REZA KANG M.D. NASSIF, JULIA, M.D. [facility] UTP [id number] [facility] 2015-10-08 09:30:00 2015-10-08 09:30:00 Appointment; RODDY HALEY P.A. CRUZ, LETICIA, P.A. UTP UTP [id number] [facility] 2015-09-23 15:45:00 2015-09-23 15:45:00 Appointment; DIEGO BERRIOS M.D. BYRD, MICHAEL, M.D. [facility] UTP [id number] [facility] 2015-09-15 15:00:00 2015-09-15 15:00:00 Appointment; DIEGO BERRIOS M.D. BYRD, MICHAEL, M.D. [facility] UTP [id number] [facility] 2015-08-16 09:15:00 2015-08-16 09:15:00 Appointment; ADONIS JAMES M.D. MURPHY, THOMAS, M.D. [facility] UTP [id number] [facility] 2015-08-07 14:00:00 2015-08-07 14:00:00 Appointment; REZA KANG M.D. NASSIF, JULIA, M.D. [facility] UTP [id number] [facility] 2015-07-26 10:15:00 2015-07-26 10:15:00 Appointment; ADONIS JAMES M.D. MURPHY, THOMAS, M.D. UTP UTP [id number] [facility] 2015-05-14 14:00:00 2015-05-14 14:00:00 Appointment; REZA KANG M.D. NASSIF, JULIA, M.D. [facility] UTP [id number] [facility] 2015-05-10 10:00:00 2015-05-10 10:00:00 Appointment; KALI KERNS M.D. ECO, LOURDES, M.D. UTP UTP [id number] [facility] 2015-04-12 09:00:00 2015-04-12 09:00:00 Appointment; BOONE MERINO NP HOANG, CHRISTINA, NP UTP UTP [id number] [facility] 2015-03-12 15:00:00 2015-03-12 15:00:00 Appointment; BEVERLY ALONSO, BEVERLY NAQVI RD UTP UTP [id number] [facility] 2015-02-12 14:00:00 2015-02-12 14:00:00 Appointment; REZA KANG M.D. NASSIF, JULIA, M.D. UTP UTP [id number] [facility] 2015-02-01 09:30:00 2015-02-01 09:30:00 Appointment; ADONIS JAMES M.D. MURPHY, THOMAS, M.D. UTP UTP [id number] [facility] 2014-11-12 12:28:00 2014-11-12 12:28:00 [place] [id number] [employer] 2013-10-29 13:42:00 2013-10-29 13:42:00 [place] [id number] [employer] 2013-10-09 11:56:00 2013-10-09 11:56:00 [place] [id number] [employer] 2013-07-07 11:00:14 2013-07-07 11:00:13 Outpatient [facility]IE [facility]IE [id number] 2013-07-04 13:47:50 2013-07-04 13:47:49 Outpatient [facility]IE [facility] [id number] 2013-06-23 11:30:18 2013-06-23 11:30:18 Outpatient [facility] [id number] 2013-05-31 17:03:52 2013-05-31 17:03:51 Outpatient [facility] MHIE [id number] 2013-05-16 13:31:41 2013-05-16 13:31:41 Outpatient [facility]IE [id number] 2013-05-10 12:16:50 2013-05-10 12:16:49 [id number] 2013-05-08 10:17:42 2013-05-08 10:17:42 Outpatient [facility] AMMON [id number] 2013-05-04 16:34:13 2013-05-04 16:34:13 Outpatient [facility] AMMON [id number] 2013-04-27 09:17:29 2013-04-27 09:17:29 Outpatient [facility] AMMON [id number] 2013-03-09 13:01:25 2013-03-09 13:01:25 [facility] [id number] 2012-11-03 04:16:24 2012-11-03 04:16:02 [facility] [id number] Results Test Description Test Time Test Comments Results Result Comments Source CHEST SINGLE (PORTABLE) 2019-10-29 08:50:00 [place] [address] Patient Name: HANG BURKS MR #: [id number] : 1970 Age/Sex: 49/M Req #: [id number] Adm Physician: Ordered by: KELSY NARANJO MD Report #: [id number] Location: ER Room/Bed: Procedure: [id number] DX/CHEST SINGLE (PORTABLE) Exam Date: 10/29/19 Exam Time: 0800 REPORT STATUS: Signed TECHNIQUE: Frontal view of the chest. INDICATION: Y CP [id number] COMPARISON: 10/23/2018 DISCUSSION: Limited evaluation due to portable technique. Lines and hardware: Overlying EKG leads are noted. Heart and mediastinum: Cardiomediastinal silhouette is top normal in size, stable. Pulmonary vascularity is within normal limits. Trachea projects midline. Lungs and pleura: No focal airspace consolidation. No pleural effusion. No pneumothorax. Soft tissues and bones: No acute abnormality. IMPRESSION: Negative for acute intrathoracic process. Signed by: Luis Koch MD on 10/29/2019 8:51 AM Dictated By: LUIS KOCH MD 0 Transcribed By: VIOLET on 10/29/19850 COPY TO: KELSY NARANJO MD Cv stress test 2019-06-26 05:37:38 Test Item Resting HR (test code = 8868372131) 72 Resting BP (test code = 5246580490) 130 Peak MET Achieved (test code = 0642740424) 1 Protocol Name (test code = 1108613118) Lexiscan Time in Exercise Phase (test code = 6974575526) 00:01:00 Max Systolic BP (test code = 5465767023) 148 Max Diastolic BP (test code = 7836332618) 70 Max Heart Rate (test code = 1890550854) 100 Max Predicted Heart Rate (test code = 3790743854) 169 Target HR Formula (test code = 7759185056) (220 - Age)*100% Test Indication (test code = 7085582941) chest pain Arrhy During Ex (test code = 0663680438) ECG Interp Before EX (test code = 1014275444) ECG Interp During Ex (test code = 2088255228) Ex Summary Comment (test code = 6543720801) Overall HR Response to Exercise (test code = 5662857669) Overall BP Response To Exercise (test code = 0484767511) Reason for Termination (test code = 6852180052) Protocol Complete Stress Test Impression (test code = 4877319756) -Wavef orm interpreted in report associated with image study. No interpretation is provided as part of this Stress ECG report.-Electronically Signed By Baldemar Law MD ([id number]), publications editor Rosa Benito ([id number]) on 06/26/2019 5:37:37 AM Rajiv Schultz Cardiac PET Myocardial Perfusion Gbmdeue5708-42-64 16:42:43 Interface, Radiology Results In - 06/26/2019 6:38 PM CDTSee PDF file for full chato WallaceLipid atqep0568-01-35 14:45:00* Test Item Value Reference Range Interpretation [...] 2015;9:129-169. LDL cholesterol calculated (test code = 54903-1) 62 mg/dL (calc) Reference range: <100 Desirable range <100 mg/dL for primary prevention; <70 mg/dL for patients with CHD or diabetic patients with > or = 2 CHD risk factors. LDL-C is now calculated using the Ernie-Veronica calculation, which is a validated novel method providing better accuracy than the Friedewald equation in the estimation of LDL-C. Ernie GODOY et al. CASSIE. 2013;310(19): 5886-0349 (http:/ /education.Hashtrack/faq/VII650) Cholesterol/HDL ratio (test code = 9830-1) 3.5 <5.0 (calc) Non-HDL cholesterol (test code = 21937-1) 94 <130 mg/dL ( calc) For patients with diabetes plus 1 major ASCVD risk factor, treating to a non-HDL-C goal of <100 mg/dL (LDL-C of <70 mg/dL) is considered a therapeutic option. PEGGY (test code = RAC) Performing Organization Info rmation: Site ID: RGA Name: [facility] Address: [address] [place] [phone] Director: Ian Christian Lab Interpretation (test code = 77630-8) Abnormal Vance OtvaigrxxHeydtdwx7081-60-56 14:45:00* Test Item Value Reference Range Interpretation Comments Troponin (test code = 31717-7) <0.01 < OR = 0.05 ng/mL In accord with published recommendations, serialtesting of troponin I at intervals of 2 to 4 hoursfor up to 12 to 24 hours is suggested in order tocorroborate a single troponin I result. An elevatedtroponin alone is not sufficient to make thediagnosis of NH. For additional information, please refer to http://education.Arpeggi/faq/NVD399 (This link is being provided for informational/educational purposes only.) RAC (test code = RAC) Performing Organization Info rmation: Site ID: RGA Name: [facility] Address: [address] [place] [phone] Director: Ian Stern 12 khaq5874-78-90 09:36:42* Test Item Value Reference Range Interpretation Comments Ventricular rate (test code = 253) 68 Atrial rate (test code = 255) 68 [place] interval (test code = 266) 156 QRSD [...] wave inversion now evident in Inferior leads- Rajiv Gonzales LEFT AP PHE0976-58-57 09:16:00 [place] [address] Patient Name: HANG BURKS MR #: [id number] : 1970 Age/Sex: 48/M Req #: [id number] Adm Physician: Ordered by: DREW ONEAL DPSarah Report #: [id number] Location: OR Room/Bed: Procedure: [id number] DX/FOOT LEFT AP LAT Exam Date: 02/08/19 [...] on 02/08/2019 9:21 AM Dictated By: JOSE [facility] Signed By: JOSE MOHR MD on 02/08/19920 Transcribed By: VIOLET marie 02/08/19920 COPY TO: DREW ONEAL Sarah [] LIPID PANEL WITH REFLEX TO DIRECT BIY5793-61-65 11:16:00* Test Item Value Reference Range Interpretation Comments CHOLESTEROL, TOTAL; Normal (test code = 2093-3) 167 mg/dl <200 N HDL CHOLESTEROL; Normal (test code = 2085-9) 50 mg/dl >40 N TRIGLYCERIDES; Above High Threshold (test code = 2571-8) 198 mg/dl <150 LDL-CHOLESTEROL; Normal (test code = 73130-6) 87 {MG/DL TRISH} N Reference range: <100 Desirable range <100 mg/dL for primary prevention; <70 mg/dL for patients with CHD or diabetic patients with > or = 2 CHD risk factors. LDL-C is now calculated using the Ernie-Veronica calculation, which is a validated novel method providing better accuracy than the Friedewald equation in the estimation of LDL-C. Ernie SS et al. CASSIE. 2013;310(19): 6711-7195 (http ://education.Big Think.Android App Review Source/faq/DEH693) CHOL/HDLC RATIO (test code = CHOL/HDLC RATIO) 3.3 {CALC} <5.0 N NON HDL CHOLESTEROL (test code = NON HDL CHOLESTEROL) 117 {MG/DL C AL} <130 N For patients with diabetes plus 1 major ASCVD risk factor, treating to a non-HDL-C goal of <100 mg/dL (LDL-C of <70 mg/dL) is considered a therapeutic option. [facility]] MICROALBUMIN, RANDOM URINE (W/CREATININE) 2018-11-11 11:16:00* [...] a patient to bewithin a diagnostic category. [facility]] CMP W/DQFM1253-50-63 11:16:00* Test Item Value Reference Range Interpretation [...] is approximately 13% higher for peopleidentified as -Vincentian. eGFR NON- (test code = eGFR NON-LISHA N TUVALUAN) 78 {ML/MIN/1.7} > OR = 60 N [...] N BILIRUBIN, TOTAL; Normal (test code = 70884-6) 0.7 mg/dl 0.2-1.2 N ALKALINE PHSPHATASE (test code = ALKALINE PHSPHATASE) 73 u/l 40-115 N AST; Normal (test code = 1916-6) 25 u/l 10-35 N ALT; Normal (test code = 1742-6) 31 u/l 9-46 N [facility]] CBC (INCLUDES DIFF/PLT)2018-11-11 11:16:00* Test Item Value Reference Range Interpretation Comments WHITE BLOOD CELL COUNT (test code = WHITE BLOOD CELL COUNT) 7.6 {Thousand/u} 3.8-10.8 N RED BLOOD CELL COUNT (test code = RED BLOOD CELL COUNT) 5.07 {Million/uL} 4.20-5.80 N HEMAGLOBIN; Normal (test code = 70380-6) 15.6 g/dl 13.2-17.1 N HEMATOCRIT; Normal (test code = 4544-3) 45.3 % 38.5-50.0 N MCV; Normal (test code = 787-2) 89.3 fL 80.0-100.0 N MCHC; Normal (test code = 28076-7) 34.4 g/dl 32.0-36.0 N RDW; Normal (test code = 788-0) 13.8 % 11.0-15.0 N PLATELET COUNT; Normal (test code = 777-3) 211 {Thousand/u} 140-400 N MPV; Normal (test code = 49575-9) 11.8 fL 7.5-12.5 N ABSOLUTE NEUTROPHILS (test code = ABSOLUTE NEUTROPHILS) 4628 {cells/uL} 0646-4263 N ABSOLUTE LYMPHOCYTES (test code = ABSOLUTE [...] % N MONOCYTES; Normal (test code = 49838-3) 9.0 % N EOSINOPHILS; Normal (test code = 98182-4) 1.2 % N BASOPHILS; Normal (test code = 87290-4) 0.7 % N [facility][H] TSH, 3RD GENERATION W/REFLEX TO FT4 2018-11-11 11:16:00* Test Item Value Reference Range Interpretation Comments TSH, 3RD GENERATION W/REFLEX TO FT4 (kareen t code = TSH, 3RD GENERATION W/REFLEX TO FT4) 1.14 {MIU/L} 0.40-4.50 N [facility][O] Hemoglobin A1c (in office)2018-10-30 18:07:00 * Test Item Value Reference Range Interpretation Comments HEMOGLOBIN A1c (test code = 4548-4) 8.2 [facility]iciansGlucose ([facility] of Care In Office)2018-10-30 18:06:00* Test Item Value Reference Range Interpretation Comments Glucose POC Lifescan (test code = Glucose POC Lifescan) 152 [facility] PhysiciansFOOT RIGHT AP ADV9251-26-69 09:49:00 [place] [address] Patient Name: HANG BURKS MR #: [id number] : Age/Sex: 48/M Req #: [id number] Adm Physician: Ordered by: DREW ONEAL DPSarah Report #: [id number] Location: OR Room/Bed: Procedure: DX/FOOT RIGHT AP LAT Exam Date: 10/25/18 Exam Time : 0850 REPORT STATUS: Signed Right foot, 2 views. [...] 9:50 AM Dictated By: DALE KRISHNA MD Transcribed By: VIOLET on 10/25/1850 COPY TO: Roshan ONEAL DPM CHEST 2 UIALI5231-75-58 09:54:00 [place] [address] Patient Name: HANG BURKS MR #: [id number] : 1970 Age/Sex: 48/M Req #: [id number] Adm Physician: Ordered by: DREW ONEAL DPSarah Report #: [id number] Location: OR Room/Bed: Procedure: DX/CHEST 2 VIEWS Exam Date: Exam Time: [...] (test code = Glucose POC Lifescan) 194 [facility][O] Hemoglobin A1c (in office)2018-05-31 14:17:00 * Test Item Value Reference Range Interpretation Comments HEMOGLOBIN A1c (test code = 4548-4) 7.7 [facility] PhysiciansPositive Retinal Eye Exam (Diabetic)2018-04-18 06:00:00* Test Item Value Reference Range Interpretation Comments Positive Diabetic Eye Screening (test code = Positive Diabetic Eye Screening) 14Cux9816 A [facility] Fjbyqsz7364-55-75 16:00:00* Test Item Value Reference Range Interpretation Comments Bedside Glucose (test code = 74701-8) 109 70-120 Meter ID: [id number] [facility] Level 2018-03-13 07:15:00* Test Item Value Reference Range Interpretation Comments Sodium Level (test code = 2951-2) 134 136-145 L [facility] CenterPotassium Zayvb9421-56-51 07:15:00* Test Item Value Reference Range Interpretation Comments Potassium Level (test code = 2823-3) 3.7 3.5-5.1 [facility] CenterChloride Cfmnu6662-52-61 07:15:00* Test Item Value Reference Range Interpretation Comments Chloride Level (test code = 2075-0) 99 98-107 [facility] CenterCarbon Dioxide Zhihc9350-94-43 07:15:00* Test Item Value Reference Range Interpretation Comments Carbon Dioxide Level (test code = 2028-9) 26 22-29 [facility] CenterAnion Pjw3516-54-27 07:15:00* Test Item Value Reference Range Interpretation Comments Anion Gap (test code = 31206-7) 12.7 8-16 [facility] CenterBlood Urea Prxkerbj1723-91-92 07:15:00* Test Item Value Reference Range Interpretation Comments Blood Urea Nitrogen (test code = 3094-0) 10 7-26 [facility] CenterCreatinine2019-01-07 07:15:00* Test Item Value Reference Range Interpretation Comments Creatinine (test code = 2160-0) 0.93 0.72-1.25 [facility] CenterBUN/Creatinine Nxtot5719-90-74 07:15:00* Test Item Value Reference Range Interpretation Comments BUN/Creatinine Ratio (test code = 3097-3) 11 - [facility] CenterEstimat Glomerular Filtration Rate 2018-03-13 07:15:00* Test Item Value Reference Range Interpretation Comments Estimat Glomerular Filtration Rate (test code = 819201314) > 60 >60 Ranges were taken from the National Kidney Disease Education Program and the [facility] Kid[facility] Foundation literature.Reference ranges:60 or greater: Lnyaej14-63 ( for 3 consecutive months): Chronic kidney disease 15 or less: Kidney failureSaint David's Round Rock Medical CenterGlucose Vgpif1399-60-95 07:15:00* Test Item Value Reference Range Interpretation Comments Glucose Level (test code = KVJ3854) 118 74-118 [facility] CenterCalcium Cctdt8895-15-21 07:15:00* Test Item Value Reference Range Interpretation Comments Calcium Level (test code = 58783-6) 9.0 8.4-10.2 [facility] CenterTotal Xfyokzzwk6163-24-24 05:57:00* Test Item Value Reference Range Interpretation Comments Total Bilirubin (test code = 1975-2) 0.7 0.2-1.2 [facility] CenterDirect Eumppsqaw7012-02-10 05:57:00* Test Item Value Reference Range Interpretation Comments Direct Bilirubin (test code = 70153-1) 0.4 0.0-0.5 [facility] CenterAspartate Amino Transf (AST/SGOT) 2018-03-13 05:57:00* Test Item Value Reference Range Interpretation Comments Aspartate Amino Transf (AST/SGOT) (test code = Aspartate Amino Transf (AST/SGOT)) 31 5-34 [facility] CenterAlanine Aminotransferase (ALT/SGPT) 2018-03-13 05:57:00* Test Item Value Reference Range Interpretation Comments Alanine Aminotransferase (ALT/SGPT) (test code = 1742-6) 83 0-55 H [facility] CenterTotal Yfglvgi3122-09-64 05:57:00* Test Item Value Reference Range Interpretation Comments Total Protein (test code = 2885-2) 7.3 6.5-8.1 [facility] CenterAlbumin2019-01-07 05:57:00* Test Item Value Reference Range Interpretation Comments Albumin (test code = 1751-7) 3.2 3.5-5.0 L [facility] CenterAlkaline Giutilyjvjs3692-74-32 05:57:00* Test Item Value Reference Range Interpretation Comments Alkaline Phosphatase (test code = 6768-6) 98 40-150 [facility] CenterMagnesium Aflgz2015-58-12 05:14:00* Test Item Value Reference Range Interpretation Comments Magnesium Level (test code = 82652-2) 2.0 1.3-2.1 [facility] CenterWhite Blood Mxvxh8924-34-43 04:42:00* Test Item Value Reference Range Interpretation Comments White Blood Count (test code = 6690-2) 7.51 4.8-10.8 [facility] CenterRed Blood Qwfhd1069-34-64 04:42:00* Test Item Value Reference Range Interpretation Comments Red Blood Count (test code = 789-8) 5.69 4.3-5.7 [facility] CenterHemoglobin2019-01-06 04:42:00* Test Item Value Reference Range Interpretation Comments Hemoglobin (test code = 87922-9) 13.9 14.0-18.0 L [facility] CenterHematocrit2019-01-06 04:42:00* Test Item Value Reference Range Interpretation Comments Hematocrit (test code = 4544-3) 44.1 38.2-49.6 [facility] CenterMean Corpuscular Jnsrqe9364-11-08 04:42:00* Test Item Value Reference Range Interpretation Comments Mean Corpuscular Volume (test code = 787-2) 77.5 81-99 L [facility] CenterMean Corpuscular Jejwffpvle9216-36-66 04:42:00* Test Item Value Reference Range Interpretation Comments Mean Corpuscular Hemoglobin (test code = 785-6) 24.4 28-[address] [facility] Hospitalan Corpuscular Hemoglobin Concent 2018-03-12 04:42:00* Test Item Value Reference Range Interpretation Comments Mean Corpuscular Hemoglobin Concent (test code = 786-4) 31.5 31-35 [facility] CenterRed Cell Distribution Wskue3309-59-71 04:42:00* Test Item Value Reference Range Interpretation Comments Red Cell Distribution Width (test code = 01484-0) 19.7 11.7 -14.4 H [facility] CenterPlatelet Viwxd5293-06-20 04:42:00* Test Item Value Reference Range Interpretation Comments Platelet Count (test code = 777-3) 224 140-360 [facility] CenterNeutrophils (%) (Auto)2018-03-12 04:42:00 * Test Item Value Reference Range Interpretation Comments Neutrophils (%) (Auto) (test code = 14494-8) 44.4 38.7-80.0 [facility] CenterLymphocytes (%) (Auto)2018-03-12 04:42:00 * Test Item Value Reference Range Interpretation Comments Lymphocytes (%) (Auto) (test code = 736-9) 39.5 18.0-39.1 H [facility] CenterMonocytes (%) (Auto)2018-03-12 04:42:00* Test Item Value Reference Range Interpretation Comments Monocytes (%) (Auto) (test code = 5905-5) 13.7 4.4-11.3 H [facility] CenterEosinophils (%) (Auto)2018-03-12 04:42:00 * Test Item Value Reference Range Interpretation Comments Eosinophils (%) (Auto) (test code = 713-8) 1.2 0.0-6.0 [facility] CenterBasophils (%) (Auto)2018-03-12 04:42:00* Test Item Value Reference Range Interpretation Comments Basophils (%) (Auto) (test code = 706-2) 0.8 0.0-1.0 [facility] CenterIM GRANULOCYTES %2018-03-12 04:42:00* Test Item Value Reference Range Interpretation Comments IM GRANULOCYTES % (test code = IM GRANULOCYTES %) 0.4 0.0- 1.0 [facility] CenterNeutrophils # (Auto)2018-03-12 04:42:00* Test Item Value Reference Range Interpretation Comments Neutrophils # (Auto) (test code = 751-8) 3.3 2.1-6.9 [facility] CenterLymphocytes # (Auto)2018-03-12 04:42:00* Test Item Value Reference Range Interpretation Comments Lymphocytes # (Auto) (test code = 64553-8) 3.0 1.0-3.2 [facility] CenterMonocytes # (Auto)2018-03-12 04:42:00* Test Item Value Reference Range Interpretation Comments Monocytes # (Auto) (test code = 742-7) 1.0 0.2-0.8 H [facility] CenterEosinophils # (Auto)2018-03-12 04:42:00* Test Item Value Reference Range Interpretation Comments Eosinophils # (Auto) (test code = 711-2) 0.1 0.0-0.4 [facility] CenterBasophils # (Auto)2018-03-12 04:42:00* Test Item Value Reference Range Interpretation Comments Basophils # (Auto) (test code = 704-7) 0.1 0.0-0.1 [facility] CenterAbsolute Immature Granulocyte (auto 2018-03-12 04:42:00* Test Item Value Reference Range Interpretation Comments Absolute Immature Granulocyte (auto (kareen t code = Absolute Immature Granulocyte (auto) 0.03 0-0.1 [facility] CenterVancomycin Level Zqibym9936-94-13 21:03:00* Test Item Value Reference Range Interpretation Comments Vancomycin Level Trough (test code = 4092-3) 11.5 5.0-10.0 HH Results called to ERLIN MCDANIEL/EHNRY at 2101 on 03/11/18 by Víctor Nunez. RB Scotty Peres.[facility] CenterBlood Ciyybko1763-74-42 16:04:00* Test Item Value Reference Range Interpretation Comments Blood Culture (test code = 44430613) NO GROWTH AFTER 5 DAYS, FINAL REPORT [facility] CenterAnti-Mitochondrial Igzawczy6944-03-08 13:07:00* Test Item Value Reference Range Interpretation Comments Anti-Mitochondrial Antibody (test code = 14182-8) 2.2 0.0- 20.0 Negative 0.0 - 20.0 Equivocal 20.1 - 24.9 Positive > 24.9Mitochondrial (M2) Antibodies are found in 90-96% ofpatients with primary bi liary cirrhosis.Performed at: [address] [id number] Director: Pedro Darby MD, Phone: [phone] David's Round [facility] Medical CenterAnti-Smooth Muscle Tovrffkg2516-40-92 13:07:00* Test Item Value Reference Range Interpretation Comments Anti-Smooth Muscle Antibody (test code = 79365-4) 9 0-19 Negative 0 - 19 Weak positi ve 20 - 30 Moderate to strong positive >30 Actin Antibodies are found in 52-85% of patients with autoimmune hepatitis or chronic active hepatitis and in 22% of patients with primary biliary cirrhosis. [facility] CenterGlobulin2019-01-03 06:43:00* Test Item Value Reference Range Interpretation Comments Globulin (test code = 87789-8) 4.5 2.3-3.5 H [facility] CenterAlbumin/Globulin Ozjiw8390-12-68 06:43:00 * Test Item Value Reference Range Interpretation Comments Albumin/Globulin Ratio (test code = 1759-0) 0.7 0.8-2.0 L [facility] A IgM Feaydyey4150-63-81 06:26:00* Test Item Value Reference Range Interpretation Comments Hepatitis A IgM Antibody (test code = 57589-1) Negative Negativ e [facility] B Surface Nodnijx6741-06-34 06:26:00* Test Item Value Reference Range Interpretation Comments Hepatitis B Surface Antigen (test code = 5196-1) Negative Negat renard [facility] B Core IgM Ucfwytdk6790-12-75 06:26:00* Test Item Value Reference Range Interpretation Comments Hepatitis B Core IgM Antibody (test code = 03905-2) Negative Ne gative [facility] C Esczktvh4114-37-74 06:26:00* Test Item Value Reference Range Interpretation Comments Hepatitis C Antibody (test code = 65289-8) <0.1 0.0-0.9 Negative: < 0.8 Indeterminate: 0.8 - 0.9 Positive: > 0.9 The CDC recommends that a positive HCV antibody result be followed up with a HCV Nucleic Acid Amplification test (072543).Performed at: [employer] [facility] [id number] [place] [id number] Director: Harsha Penaloza MD, Phone: [phone] [facility]'s Round [facility] Medical CenterAnti-Nuclear Antibody Screen 2018-03-08 11:42:00* Test Item Value Reference Range Interpretation Comments Anti-Nuclear Antibody Screen (test code = 5048-4) Negative . Negative <1:80 Borderline 1:80 Positive > 1:80Performed at: [employer] [facility] [address] [id number] 3Lab Director: Harsha Penaloza MD, Phone: [phone] David's Round [facility] Medical CenterUS RENAL RETROPERITONEAL GIYN1901-15-07 15:44:00 [place] [address] Patient Name: HANG BURKS MR #: [id number] : 1970 Age/Sex: 48/M Req #: [id number] Adm Physician: JITENDRA SUGGS MD Ordered by: MATTY JHA MD Report #: [id number] Location: MED/SURG3 Room/Bed: [facility] Procedure: [id number] US/US RE NAL RETROPERITONEAL COMP Exam Date: Exam Time: REPORT STATUS: Signed EXAM: Renal U ltrasound COMPARISON: CT abdomen/pelvis 03/05/2018. TECHNIQUE: Transve rse and longitudinal images of the kidneys and bladder were obtained. F INDINGS: Right Kidney: Length: Measures 11.9 x 5.8 x 4.2 cm Appea bethany: Normal echogenicity. Collecting system: No hydronephrosis Stones: [...] 03/07/2018 3:48 PM Dictated By: MARY Schaefer 1548 Transcribed By: JAYLON NOWAK on 03/07/18 154 COPY TO: MATTY JHA MD Urine Osmolality 2018-03-07 15:39:00* Test Item Value Reference Range Interpretation Comments Urine Osmolality (test code = 2695-5) 735 . 24 hr : 300 - 900 Random: 50 - 1400 After 12hr fluid restriction: >850Performed at: [facility] [address] [place], [place] [id number] Director: Harsha Penaloza MD, Phone: [phone] David's Round Rock Medical CenterUrine Random Total Dxlvxpp4523-10-19 12:00:00* Test Item Value Reference Range Interpretation Comments Urine Random Total Protein (test code = 2888-6) 25.4 1-14 H [facility] CenterUrine Prcvbqehfu3801-35-83 12:00:00* Test Item Value Reference Range Interpretation Comments Urine Creatinine (test code = 2161-8) 105.21 63-166 [facility] CenterCreatine Kinase WH5845-09-33 12:38:00* Test Item Value Reference Range Interpretation Comments Creatine Kinase MB (test code = 14779-5) 0.50 0-5.0 [facility] CenterTroponin A5234-42-73 12:38:00* Test Item Value Reference Range Interpretation Comments Troponin I (test code = FIY7312) 0.001 0-0.300 [facility] CenterCreatine Ploziy2256-35-93 12:31:00* Test Item Value Reference Range Interpretation Comments Creatine Kinase (test code = 2157-6) 162 30-200 [facility] CenterUrine Random Iczxyc1520-39-63 09:37:00* Test Item Value Reference Range Interpretation Comments Urine Random Sodium (test code = 2955-3) 25 [facility] Hospitalerum Mhtkysiigc1216-84-48 09:26:00* Test Item Value Reference Range Interpretation Comments Serum Osmolality (test code = 70717-9) 260 278-305 L [facility] CenterLactic Acid Lejfg9218-46-31 06:44:00* Test Item Value Reference Range Interpretation Comments Lactic Acid Level (test code = Lactic Acid Level) 11.1 4.5- 19.8 [facility] CenterPhosphorus Arvpd2222-35-81 05:08:00* Test Item Value Reference Range Interpretation Comments Phosphorus Level (test code = LBI3278) 2.9 2.3-4.7 [facility] XRAY LINE DZOISJAAE7511-09-97 20:11:00 [facility] [address] [address] Patient Name: HANG BURKS MR #: [id number] : 1970 Age/Sex: 48/M Req #: [id number] Adm Physician: JITENDRA SUGGS MD Ordered by: DEBRA HERNANDEZ MD Report #: [id number] Location: [facility] Room/Bed: [address] [address] Procedure: [id number] DX/ CHEST XRAY LINE PLACEMENT Exam Date: 03/05/18 Exam T marianela: 1956 REPORT STATUS: Signed EXAM: CHEST XRAY LINE [...] TO: DEBRA HERNANDEZ MD Differential Total Cells Fhcuacl4636-15-87 19:45:00* Test Item Value Reference Range Interpretation Comments Differential Total Cells Counted (test code = Christa og Total Cells Counted) 100 [facility] CenterNeutrophils % (Manual)2018-03-05 19:45:00 * Test Item Value Reference Range Interpretation Comments Neutrophils % (Manual) (test code = 55425-6) 86 40-74 H [facility] CenterBand Neutrophils %2018-03-05 19:45:00* Test Item Value Reference Range Interpretation Comments Band Neutrophils % (test code = 764-1) 5 [facility] CenterLymphocytes % (Manual)2018-03-05 19:45:00 * Test Item Value Reference Range Interpretation Comments Lymphocytes % (Manual) (test code = 737-7) 5 19-48 L [facility] CenterMonocytes % (Manual)2018-03-05 19:45:00* Test Item Value Reference Range Interpretation Comments Monocytes % (Manual) (test code = 744-3) 4 3.4-9.0 [facility] CenterPlatelet Gxvetfcc8488-88-29 19:45:00* Test Item Value Reference Range Interpretation Comments Platelet Estimate (test code = 91204-0) ADEQUATE [facility] CenterPlatelet Morphology Fpqghef3734-64-44 19:45:00* Test Item Value Reference Range Interpretation Comments Platelet Morphology Comment (test code = 21367-6) FEW GIANT [facility] CenterMicrocytosis2018-12-30 19:45:00* Test Item Value Reference Range Interpretation Comments Microcytosis (test code = 741-9) SLIGHT [facility] CenterArterial Blood dJ3327-22-65 19:22:00* Test Item Value Reference Range Interpretation Comments Arterial Blood pH (test code = 2744-1) 7.38 7.31-7.41 [facility] CenterArterial Blood Partial Pressure CO2 2018-03-05 19:22:00* Test Item Value Reference Range Interpretation Comments Arterial Blood Partial Pressure CO2 (test code = 2019-8) 32 41-51 L [facility] CenterArterial Blood Partial Pressure O2 2018-03-05 19:22:00* Test Item Value Reference Range Interpretation Comments Arterial Blood Partial Pressure O2 (test code = 2019-8) 80 80-105 [facility] CenterArterial Blood LPX67261-18-39 19:22:00* Test Item Value Reference Range Interpretation Comments Arterial Blood HCO3 (test code = 1960-4) 19 23-28 L [facility] CenterArterial Blood Base Gsbnuk2809-99-92 19:22:00* Test Item Value Reference Range Interpretation Comments Arterial Blood Base Excess (test code = 1925-7) -6.0 -2-3 L [facility] CenterArterial Blood Oxygen Saturation 2018-03-05 19:22:00* Test Item Value Reference Range Interpretation Comments Arterial Blood Oxygen Saturation (test code = 2708-6) 96.0 95-98 [facility] CenterFiO22018-12-30 19:22:00* Test Item Value Reference Range Interpretation Comments FiO2 (test code = FiO2) 21 PT ON RA SATTING 96%[facility] CenterCT ABDOMEN/PELVIS W 2018-03-05 18:43:[address] [address] Patient Name: HANG BURKS MR #: [id number] : 1970 Age/Sex: 48/M Req #: [id number] Adm Physician: Ordered by: CIRA CORNEJO MD Report #: [id number] Location: ER Room/Bed: Procedure: [id number] CT/CT ABDOMEN/PELVIS W Exam Date: 03/05/18 Exam Time: 1818 REPORT STATUS: Signed CT Abdome n And [...] Level (test code = 1798-8) 113 25-125 [facility] CenterLipase2018-12-30 18:38:00* Test Item Value Reference Range Interpretation Comments Lipase (test code = 3040-3) 118 8-78 H [facility] CenterLOWER LEG QTGIN8943-40-58 18:01:00 [facility] [address] [address] Patient Name: HANG BURKS MR #: [id number] : 1970 Age/Sex: 48/M Req #: [id number] Adm Physician: Ordered by: CIRA CORNEJO MD Report #: [id number] Location: ER Room/Bed: Procedure: [id number] DX/LOW ER LEG RIGHT Exam Date: 03/05/18 Exam Time: 1723 REPORT STATUS: Signed Tibia fibula right CPT code: 42703 Indication: Right ankle cellulitis, fever T echnique: [...] 03/05/181803 COPY TO: CIRA CORNEJO MD Urine QTO1634-75-95 17:24:00* Test Item Value Reference Range Interpretation Comments Urine WBC (test code = 5821-4) 0-5 0-5 [facility] CenterUrine NFW0571-09-74 17:24:00* Test Item Value Reference Range Interpretation Comments Urine RBC (test code = 25236-4) 0-5 0-5 [facility] CenterUrine Sdbytyhr8818-28-09 17:24:00* Test Item Value Reference Range Interpretation Comments Urine Bacteria (test code = 10476-6) RARE NONE [facility] CenterUrine Epithelial Mwdxc3109-80-87 17:24:00 * Test Item Value Reference Range Interpretation Comments Urine Epithelial Cells (test code = 90912-2) RARE NONE [facility] CenterUrine Wzqdd9701-09-83 17:03:00* Test Item Value Reference Range Interpretation Comments Urine Color (test code = 5778-6) YELLOW YELLOW [facility] CenterUrine Nlfwolh8899-74-84 17:03:00* Test Item Value Reference Range Interpretation Comments Urine Clarity (test code = 67385-1) CLEAR CLEAR [facility] CenterUrine Specific Ajrtdjx4503-47-81 17:03:00 * Test Item Value Reference Range Interpretation Comments Urine Specific [place] (test code = 5811-5) 1.010 1.010-1.02 5 [facility] CenterUrine jJ0525-00-93 17:03:00* Test Item Value Reference Range Interpretation Comments Urine pH (test code = 08141-9) 6 5-7 [facility] CenterUrine Leukocyte Ichvxezw1567-81-14 17:03:00* Test Item Value Reference Range Interpretation Comments Urine Leukocyte Esterase (test code = 5799-2) NEGATIVE NEGATIVE [facility] CenterUrine Edtrycf5166-46-34 17:03:00* Test Item Value Reference Range Interpretation Comments Urine Nitrite (test code = 83931-7) NEGATIVE NEGATIVE [facility] CenterUrine Pvbbjuf3735-05-06 17:03:00* Test Item Value Reference Range Interpretation Comments Urine Protein (test code = 5804-0) NEGATIVE NEGATIVE [facility] CenterUrine Glucose (UA)2018-03-05 17:03:00* Test Item Value Reference Range Interpretation Comments Urine Glucose (UA) (test code = 2349-9) 3+ NEGATIVE H [facility] CenterUrine Hygiras8888-07-11 17:03:00* Test Item Value Reference Range Interpretation Comments Urine Ketones (test code = 99231-1) TRACE NEGATIVE H [facility] CenterUrine Myxgapoqvbll6716-86-73 17:03:00* Test Item Value Reference Range Interpretation Comments Urine Urobilinogen (test code = 14799-6) 0.2 0.2-1 [facility] CenterUrine Wdaqaskkw6930-35-99 17:03:00* Test Item Value Reference Range Interpretation Comments Urine Bilirubin (test code = 1978-6) 1+ NEGATIVE H Confirmatory test currently unavailable. False positive results may occur.[facility] CenterUrine Vxhza5384-15-85 17:03:00* Test Item Value Reference Range Interpretation Comments Urine Blood (test code = 01085-7) NEGATIVE NEGATIVE [facility] CenterCHEST 2 FGLMQ8743-39-90 16:42:00 [address] [address] Patient Name: HANG BURKS MR #: [id number] : 1970 Age/Sex: 48/M Req #: [id number] Adm Physician: Ordered by: CIRA CORNEJO MD Report #: [id number] Location: ER Room/Bed: Procedure: [id number] DX/JUAN ST 2 VIEWS Exam Date: 03/05/18 Exam Time: 1536 REPORT STATUS: Signed EXAMINATION: C hest x-ray [...] PM Dictated By : DILIP LAMB MD 42 COPY TO: CIRA CORNEJO MD Bedside Sghmefm3532-31-77 11:54:00* Test Item Value Reference Range Interpretation Comments Bedside Glucose (test code = 53489-5) 258 70-120 H Meter ID: [id number] [facility] TylerVancomycin Level Wldcmy2648-45-89 11:17:00* Test Item Value Reference Range Interpretation Comments Vancomycin Level Trough (test code = 4092-3) 13.9 5.0-10.0 HH Results called to LONG MOSS at 1117 on 02/17/18 by EDMUNDO DONALD. RB OK .[facility] CenterBlood Czmvbqr3066-56-82 10:35:00* Test Item Value Reference Range Interpretation Comments Blood Culture (test code = 14306204) NO GROWTH AFTER 72 HOURS [facility] Hospitalodium Jprgy3643-17-44 06:31:00* Test Item Value Reference Range Interpretation Comments Sodium Level (test code = 2951-2) 133 136-145 L [facility] CenterPotassium Cqnil0370-87-77 06:31:00* Test Item Value Reference Range Interpretation Comments Potassium Level (test code = 2823-3) 3.7 3.5-5.1 [facility] CenterChloride Yvaij6582-98-93 06:31:00* Test Item Value Reference Range Interpretation Comments Chloride Level (test code = 2075-0) 100 98-107 [facility] CenterCarbon Dioxide Xhswp1979-65-70 06:31:00* Test Item Value Reference Range Interpretation Comments Carbon Dioxide Level (test code = 2028-9) 21 22-29 L [facility] CenterAnion Llf0081-27-37 06:31:00* Test Item Value Reference Range Interpretation Comments Anion Gap (test code = 11993-8) 15.7 8-16 [facility] CenterBlood Urea Bebsgrvx8050-87-90 06:31:00* Test Item Value Reference Range Interpretation Comments Blood Urea Nitrogen (test code = 3094-0) 10 7-26 [facility] CenterCreatinine2018-12-13 06:31:00* Test Item Value Reference Range Interpretation Comments Creatinine (test code = 2160-0) 1.11 0.72-1.25 [facility] CenterBUN/Creatinine Qhezh1367-45-15 06:31:00* Test Item Value Reference Range Interpretation Comments BUN/Creatinine Ratio (test code = 3097-3) 9 6-25 [facility] CenterEstimat Glomerular Filtration Rate 2018-02-16 06:31:00* Test Item Value Reference Range Interpretation Comments Estimat Glomerular Filtration Rate (test code = 426121128) > 60 >60 Ranges were taken from the National Kidney Disease Education Program and the [facility] Kid[facility] Foundation literature.Reference ranges:60 or greater: Xsagrw72-42 ( for 3 consecutive months): Chronic kidney disease 15 or less: Kidney failureSaint [facility]'s Round [facility] Medical CenterGlucose Lrhjw5442-19-87 06:31:00* Test Item Value Reference Range Interpretation Comments Glucose Level (test code = PVS8905) 89 74-118 [facility] CenterCalcium Qwjvh5484-25-83 06:31:00* Test Item Value Reference Range Interpretation Comments Calcium Level (test code = 75165-3) 9.3 8.4-10.2 [facility] CenterWhite Blood Tdytz4376-42-75 06:21:00* Test Item Value Reference Range Interpretation Comments White Blood Count (test code = 6690-2) 7.62 4.8-10.8 [facility] CenterRed Blood Mifgp6004-52-34 06:21:00* Test Item Value Reference Range Interpretation Comments Red Blood Count (test code = 789-8) 5.97 4.3-5.7 H [facility] CenterHemoglobin2018-12-13 06:21:00* Test Item Value Reference Range Interpretation Comments Hemoglobin (test code = 45832-7) 14.3 14.0-18.0 [facility] CenterHematocrit2018-12-13 06:21:00* Test Item Value Reference Range Interpretation Comments Hematocrit (test code = 4544-3) 45.9 38.2-49.6 [facility] CenterMean Corpuscular Njztou2812-03-73 06:21:00* Test Item Value Reference Range Interpretation Comments Mean Corpuscular Volume (test code = 787-2) 76.9 81-99 L [facility] CenterMean Corpuscular Qgmathtvvw5693-61-60 06:21:00* Test Item Value Reference Range Interpretation Comments Mean Corpuscular Hemoglobin (test code = 785-6) 24.0 28-32 L [facility] CenterMean Corpuscular Hemoglobin Concent 2018-02-16 06:21:00* Test Item Value Reference Range Interpretation Comments Mean Corpuscular Hemoglobin Concent (test code = 786-4) 31.2 31-35 [facility] CenterRed Cell Distribution Rlhxw5052-14-39 06:21:00* Test Item Value Reference Range Interpretation Comments Red Cell Distribution Width (test code = 23270-9) 18.7 11.7 -14.4 H [facility] CenterPlatelet Ttyog7550-72-88 06:21:00* Test Item Value Reference Range Interpretation Comments Platelet Count (test code = 777-3) 204 140-360 [facility] CenterNeutrophils (%) (Auto)2018-02-16 06:21:00 * Test Item Value Reference Range Interpretation Comments Neutrophils (%) (Auto) (test code = 42472-3) 67.9 38.7-80.0 [facility] CenterLymphocytes (%) (Auto)2018-02-16 06:21:00 * Test Item Value Reference Range Interpretation Comments Lymphocytes (%) (Auto) (test code = 736-9) 15.6 18.0-39.1 L [facility] CenterMonocytes (%) (Auto)2018-02-16 06:21:00* Test Item Value Reference Range Interpretation Comments Monocytes (%) (Auto) (test code = 5905-5) 12.2 4.4-11.3 H [facility] CenterEosinophils (%) (Auto)2018-02-16 06:21:00 * Test Item Value Reference Range Interpretation Comments Eosinophils (%) (Auto) (test code = 713-8) 3.4 0.0-6.0 [facility] CenterBasophils (%) (Auto)2018-02-16 06:21:00* Test Item Value Reference Range Interpretation Comments Basophils (%) (Auto) (test code = 706-2) 0.5 0.0-1.0 [facility] CenterIM GRANULOCYTES %2018-02-16 06:21:00* Test Item Value Reference Range Interpretation Comments IM GRANULOCYTES % (test code = IM GRANULOCYTES %) 0.4 0.0- 1.0 [facility] CenterNeutrophils # (Auto)2018-02-16 06:21:00* Test Item Value Reference Range Interpretation Comments Neutrophils # (Auto) (test code = 751-8) 5.2 2.1-6.9 [facility] CenterLymphocytes # (Auto)2018-02-16 06:21:00* Test Item Value Reference Range Interpretation Comments Lymphocytes # (Auto) (test code = 14522-9) 1.2 1.0-3.2 [facility] CenterMonocytes # (Auto)2018-02-16 06:21:00* Test Item Value Reference Range Interpretation Comments Monocytes # (Auto) (test code = 742-7) 0.9 0.2-0.8 H [facility] CenterEosinophils # (Auto)2018-02-16 06:21:00* Test Item Value Reference Range Interpretation Comments Eosinophils # (Auto) (test code = 711-2) 0.3 0.0-0.4 [facility] CenterBasophils # (Auto)2018-02-16 06:21:00* Test Item Value Reference Range Interpretation Comments Basophils # (Auto) (test code = 704-7) 0.0 0.0-0.1 [facility] CenterAbsolute Immature Granulocyte (auto 2018-02-16 06:21:00* Test Item Value Reference Range Interpretation Comments Absolute Immature Granulocyte (auto (kareen t code = Absolute Immature Granulocyte (auto) 0.03 0-0.1 [facility] CenterHedavies campus A IgM Clygfady9316-73-34 15:49:00* Test Item Value Reference Range Interpretation Comments Hepatitis A IgM Antibody (test code = 41195-4) Negative Negativ e [facility] B Surface Rkmxbtb6006-94-47 15:49:00* Test Item Value Reference Range Interpretation Comments Hepatitis B Surface Antigen (test code = 5196-1) Negative Negat renard [facility] B Core IgM Celubibh3900-28-46 15:49:00* Test Item Value Reference Range Interpretation Comments Hepatitis B Core IgM Antibody (test code = 92475-4) Negative Ne gative [facility] CenterLactic Acid Cvcke3776-56-69 15:29:00* Test Item Value Reference Range Interpretation Comments Lactic Acid Level (test code = Lactic Acid Level) 29.2 4.5- 19.8 HH Results called to ravinder miller at 1527 on 02/14/18 by Dogulas Sinclair. RB OK. [facility] TylerUS PHMVGSAHCMP0840-58-97 14:11:00 [facility] [address] [address] Patient Name: HANG BURKS MR #: [id number] : 1970 Age/Sex: 47/M Req #: [id number] Adm Physician: JITENDRA SUGGS MD Ordered by: ANTWAN PHIPPS MD Report #: [id number] Location: [facility] Room/Bed: [address] [address] Procedure: [id number] U S/US GALLBLADDER Exam Date: Exam Time: REPORT STATUS: Signed EXAM: Right Upper Alexander drant Ultrasound INDICATION: Transaminitis COMPARISON: None. T ECHNIQUE: [...] :13 PM Dictated By: BOBBY GURROLA MD 141 Transcribed By: VIOLET on 02/14/181412 COPY TO: ANTWAN PHIPPS MD LOWER LEG IPHIL4103-79-46 11:24:00 [address] [address] Patient Name: HANG BURKS MR #: [id number] : 1970 Age/Sex: 47/M Req #: [id number] Adm Physician: Ordered by: ANTWAN PHIPPS MD Report #: [id number] Location: ER Room/Bed: Procedure: [id number] DX /LOWER LEG RIGHT Exam Date: 02/14/18 [...] 02/14/181124 COPY TO: ANTWAN PHIPPS MD Total Saawgfkcn6707-15-25 11:05:00* Test Item Value Reference Range Interpretation Comments Total Bilirubin (test code = 1975-2) 1.1 0.2-1.2 [facility] CenterAspartate Amino Transf (AST/SGOT) 2018-02-14 11:05:00* Test Item Value Reference Range Interpretation Comments Aspartate Amino Transf (AST/SGOT) (test code = Aspartate Amino Transf (AST/SGOT)) 185 5-34 H [facility] CenterAlanine Aminotransferase (ALT/SGPT) 2018-02-14 11:05:00* Test Item Value Reference Range Interpretation Comments Alanine Aminotransferase (ALT/SGPT) (test code = 1742-6) 113 0-55 H [facility] CenterTotal Vqeuale0489-25-55 11:05:00* Test Item Value Reference Range Interpretation Comments Total Protein (test code = 2885-2) 8.9 6.5-8.1 H [facility] CenterAlbumin2018-12-11 11:05:00* Test Item Value Reference Range Interpretation Comments Albumin (test code = 1751-7) 3.8 3.5-5.0 [facility] CenterGlobulin2018-12-11 11:05:00* Test Item Value Reference Range Interpretation Comments Globulin (test code = 07434-7) 5.1 2.3-3.5 H [facility] CenterAlbumin/Globulin Ykwds6045-99-03 11:05:00 * Test Item Value Reference Range Interpretation Comments Albumin/Globulin Ratio (test code = 1759-0) 0.7 0.8-2.0 L [facility] CenterAlkaline Hwdsjobsgzj4579-00-13 11:05:00* Test Item Value Reference Range Interpretation Comments Alkaline Phosphatase (test code = 6768-6) 70 40-150 [facility] CenterUS Extremity lower venous Doppler Unilat 796734934-28-89 12:59:00EXAM: US RIGHT LOWER EXTREMITY VENOUS DOPPLERDATE: [...] 13:51Electronically Signed by: Bk Aguayo MD 02/08/1813:54FINAL REPORTUnUintah Basin [facility] Physicians[O] Influenza A and B, Rapid Method (In Office)2018-01-19 16:34:56* Test Item Value Reference Range Interpretation Comments INFLUENZA A & B Rapid (test code = INFLUENZA A & B Rapid) negative N [facility][O] Streptococcus Test Rapid (In Office)2018-01-19 16:34:35* Test Item Value Reference Range Interpretation Comments Group A Strep Screen; Abnormal (test code = 35556-7) positive A [facility] PhysiciansGlucose (Point of Care In Office)2017-12-20 16:11:00* Test Item Value Reference Range Interpretation Comments Glucose POC Lifescan (test code = Glucose POC Lifescan) 147 [facility][O] Hemoglobin A1c (in office)2017-12-20 16:11:00 * Test Item Value Reference Range Interpretation Comments HEMOGLOBIN A1c (test code = 4548-4) 7.3 [facility] PhysiciansGlucose (Point of Care In Office)2017-09-19 16:28:00* Test Item Value Reference Range Interpretation Comments Glucose POC Lifescan (test code = Glucose POC Lifescan) 97 [facility][O] Hemoglobin A1c (in office)2017-09-19 16:28:00 * Test Item Value Reference Range Interpretation Comments HEMOGLOBIN A1c (test code = 4548-4) 7.4 [facility]] LIPID BSJYF1269-22-43 07:55:00* Test Item Value Reference Range Interpretation Comments CHOLESTEROL, TOTAL; Normal (test code = 2093-3) 129 mg/dl <200 N HDL CHOLESTEROL; Below Low Threshold (test code = 2085-9) 36 mg/dl >40 TRIGLYCERIDES; Normal (test code = 2571-8) 125 mg/dl <150 N LDL-CHOLESTEROL; Normal (test code = 64208-6) 72 {MG/DL TRISH} N Reference range: <100 Desirable range <100 mg/dL for primary prevention; <70 mg/dL for patients with CHD or diabetic patients with > or = 2 CHD risk factors. LDL-C is now calculated using the Ernie-Veronica calculation, which is a validated novel method providing better accuracy than the Friedewald equation in the estimation of LDL-C. Ernie SS et al. CASSIE. 2013;310(19): 3980-1003 (http ://education.Big Think.Android App Review Source/faq/JYD907) CHOL/HDLC RATIO (test code = CHOL/HDLC RATIO) 3.6 {CALC} <5.0 N NON HDL CHOLESTEROL (test code = NON HDL CHOLESTEROL) 93 {MG/DL CA L} <130 N For patients with diabetes plus 1 major ASCVD risk factor, treating to a non-HDL-C goal of <100 mg/dL (LDL-C of <70 mg/dL) is considered a therapeutic option. [facility]] CMP W/UKBZ0170-10-98 07:55:00* Test Item Value Reference Range Interpretation [...] NON- (test code = eGFR NON-LISHA N TUVALUAN) 76 {ML/MIN/1.7} > OR = 60 N [...] N BILIRUBIN, TOTAL; Normal (test code = 09359-7) 0.6 mg/dl 0.2-1.2 N ALKALINE PHSPHATASE (test code = ALKALINE PHSPHATASE) 52 u/l 40-115 N AST; Normal (test code = 1916-6) 19 u/l 10-40 N ALT; Normal (test code = 1742-6) 18 u/l 9-46 N [facility]] MICROALBUMIN, RANDOM URINE (W/CREATININE) 2017-06-25 07:55:00* [...] a patient to bewithin a diagnostic category. [facility] PhysiciansGlucose (Point of Care In Office)2017-06-20 16:04:00* Test Item Value Reference Range Interpretation Comments Glucose POC Lifescan (test code = Glucose POC Lifescan) 155 [facility][O] Hemoglobin A1c (in office)2017-06-20 16:04:00 * Test Item Value Reference Range Interpretation Comments HEMOGLOBIN A1c (test code = 4548-4) 7.4 [facility] PhysiciansGlucose (Point of Care In Office)2017-03-18 16:02:00* Test Item Value Reference Range Interpretation Comments Glucose POC Lifescan (test code = Glucose POC Lifescan) 109 [facility][O] Hemoglobin A1c (in office)2017-03-18 16:02:00 * Test Item Value Reference Range Interpretation Comments HEMOGLOBIN A1c (test code = 4548-4) 8.1 [facility]
[2019-10-29] MEDS ORDERED: SODIUM CHLORIDE 0.9% 1000ML 1,000 ML IV SCH (09:30)
[2019-10-29] MEDS ORDERED: MIDAZOLAM HCL 2 MG/2 ML VIAL ONE ×2 (11:38→12:42)
[2019-10-29] MEDS ORDERED: FENTANYL CITRATE/PF 100MCG/2 ML INJ ONE (11:39)
[2019-10-29] MEDS ORDERED: IOPAMIDOL 370 MG/ML 200 ML INFUS..BTL INJ ONE (11:40)
[2019-10-29] MEDS ORDERED: HEPARIN SOD/SOD CHLORIDE 2,000 ML ONE (11:40)
[2019-10-29] MEDS ORDERED: LIDOCAINE HCL 2% LOCAL 20 ML VIAL ONE (11:40)
[2019-10-29] MEDS ORDERED: SODIUM CHLORIDE 0.9% 1000ML 1,000 ML ONE ×2 (11:41→20:20)
--- NOTE | 2019-10-29 11:48 | NUR ---
report given to Atif FIGUEROA, [employer] Technician
[2019-10-29] MEDS ORDERED: BIVALRIUDIN 250 MG/VIAL VIAL IV ONE (12:36)
[2019-10-29] MEDS ORDERED: SODIUM CHLORIDE 0.9% 50ML 50 ML ONE (12:36)
[2019-10-29] MEDS ORDERED: CEFAZOLIN SOD 2 GM/D5W 50ML 50 ML IV ONE (12:55)
[2019-10-29] MEDS ORDERED: CLOPIDOGREL BISULFATE 75 MG TAB ONE (12:55)
--- NOTE | 2019-10-29 14:08 | Consultation ---
DATE OF CONSULTATION: 10/29/2019 REASON FOR CONSULTATION: Chest pain. CHIEF COMPLAINT: Chest pain. HISTORY OF PRESENT ILLNESS: This is a 49-year-old male with history of CAD, status post PCI to LAD, hypertension, hyperlipidemia, diabetes, and end-organ damage. The patient presents to [facility] ER with complaints of chest pain around 0230 this morning. Cardiology was consulted to evaluate the patient. The patient is seen in room, reports developed chest pain, sharp in nature, retrosternal that radiates to his back and left arm with shortness of breath around 0230 or so this morning. He took his medications, however, chest pain progressed, therefore came to the ER for further evaluation. Has received nitroglycerin several times with improved pain, however, reports the pain is worsening since being here. I discussed with the patient regarding ischemic evaluation. We will offer left heart catheterization given symptoms and medical history. Risks and benefits discussed with the patient. Questions answered. The patient wishes to proceed with left heart catheterization. PAST MEDICAL HISTORY: CAD, status post PCI of LAD in 2011; hypertension, hyperlipidemia, diabetes, reflux, and COVID-19 in August 2019. PAST SURGICAL HISTORY: PCI of LAD in 2011, cholecystectomy, lumbar hernia, and left bunionectomy. FAMILY HISTORY: Mother had history of hypertension and diabetes. Father was reported as healthy. SOCIAL HISTORY: He is . 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 Denies any alcohol or tobacco use. ALLERGIES: DEMEROL. HOME MEDICATIONS: Include: 1. Lipitor 40 mg daily. 2. Plavix 75 mg daily. 3. Isosorbide mononitrate 120 mg daily. 4. Lisinopril 10 mg daily. 5. Insulin sliding scale. 6. Metoprolol 50 mg daily. 7. Janumet twice daily. REVIEW OF SYSTEMS: GENERAL: Denies any weight change, fatigue, weakness, fevers, chills, or night sweats. SKIN: No rashes or sores. HEENT: Positive for nausea. Denies any vomiting. Denies any earache, epistaxis, sore throat, or swollen neck. HEART: Positive for chest pain as above. Positive for dyspnea on exertion. Denies any orthopnea, PND, or lower extremity edema. RESPIRATORY: Positive for shortness of breath. Denies any wheezing, coughing, or hemoptysis. GI: Reports good appetite and nausea this a.m. Denies any vomiting. Denies any melena or tarry bloody stools. : Denies any frequency, urgency, dysuria, or hematuria. VASCULAR: Denies any lower extremity edema. MUSCULOSKELETAL: Denies any muscle weakness. Positive for joint pains and back pains. NEUROLOGIC: Denies any numbness, tingling, tremors, weakness, paralysis, or blackout seizures. HEMATOLOGIC: Denies any bruising or anemia. ENDOCRINE: Denies heat or cold intolerance, polyuria, polydipsia, or polyphagia. PHYSICAL EXAMINATION: GENERAL: Appears stated age, reliable informant. VITAL SIGNS: Height 64 inches. Weight 179 pounds. Temperature 98.1, pulse 80, respiratory rate 18, blood pressure 147/97, and pulse ox 100% on room air. SKIN: No rashes or bruises noted. HEENT: Normocephalic. Pupils are equal and reactive. Extraocular movements are intact. Trachea midline. No JVD. No carotid bruits noted. HEART: Regular rate and rhythm. PMI in the 4th and 5th intercostal space. LUNGS: Bilateral breath sounds. Clear to auscultation. Good airway entry. ABDOMEN: Soft, nontender, and nondistended. No organomegaly noted. MUSCULOSKELETAL: Good muscle strength throughout. No lower extremity edema noted. VASCULAR: +2 radial pulses bilaterally, +1 DP and PT pulses bilaterally. NEUROLOGIC: Cranial nerves II through XII seem intact. LABORATORY DATA: Sodium 139, potassium 4.1, chloride 97, BUN 11, creatinine 1.28, and mag 1.6. Troponin 0.006. BNP 10. White count 7, hemoglobin 16, hematocrit 49, and platelets 219. PT 12 and INR 0.9. IMAGING DATA: Chest x-ray, no acute intrathoracic abnormalities. ASSESSMENT: 1. Coronary artery disease with unstable angina. 2. History of COVID-19 in August 2019. 3. Hypertension. 4. Hyperlipidemia. 5. Diabetes. PLAN: 1. The patient presents with chest pain, unstable in nature, has been taking nitro with some relief; however, reports chest pain is worsening and increasing in frequency. Long discussion with the patient regarding evaluation, i.e., left heart catheterization. Risks and benefits were discussed at length with the patient including questions are answered. The patient wishes to proceed with left heart catheterization. 2. Aspirin, Plavix, beta-bernardino, and statin therapy. 3. We will get an echo to evaluate heart function and structure. 4. Obtain lipid panel. 5. Left heart catheterization this a.m. 6. Start IV fluids. 7. Further recommendations post left heart catheterization. Dictated by Germán Kirkland NP Lucinda Combs MD DC/RIAZ /[id number]
--- NOTE | 2019-10-29 15:00 | NUR ---
bedside report received from Kenji Babcock RN. Alert oriented and appropriate, PERRLA, respirations even and unlabored to room air. Pulses x4 extremities equal and strong. Right groin w/o s/s of hematoma. Cap fill brisk < 3 sec. Skin warm and dry integrity appears intact. IV 20g to right lateral AC presents healthy w/o s/s of infiltration or complaint. Abdomen soft and supple. pt offered toileting, urinated 600 ml of concentrated clear yellow urine. Personal affects with patient. Family not available. Pt understanding of POC. Bedside telemetry reviewed. Currently w/o complaint of pain or need. Call light within reach, bed low and locked, side rails up x2. -cgf
[2019-10-29] MEDS ORDERED: HYDROCODONE/APAP 5MG-325MG TAB ONE (15:36)
--- NOTE | 2019-10-29 15:45 | NUR ---
pt c/o generalized discomfort to right groin. no acute distress observed, no s/s of hematoma. Basic nutrition requested for patient. Vicodin x1 given.
--- NOTE | 2019-10-29 17:00 | NUR ---
pt resting w/ eyes closed. no visible distress. room remains secure for reduced traffic. bed assignment pending.
--- NOTE | 2019-10-29 17:49 | Operative Report ---
DATE OF PROCEDURE: SURGEON: Lucinda Combs MD TITLE OF THE PROCEDURES: 1. Left cardiac catheterization. 2. PCI and stenting of the proximal to mid LAD. INDICATION: Unstable coronary syndrome with recurrent severe typical anginal symptoms. TECHNICAL DETAILS: The patient presented to the emergency room with severe symptoms of unstable coronary syndrome. He continued to have chest pain on and off. He was seen by ER physician. He called me urgently for that patient. He got ST-T, also segment changes noted. The patient kept n.p.o. and taken to the research laboratory technician on the first opening. After the usual sterile preparation and draping procedure, a 4-[place] sheath established in the right common femoral artery. Kyle left 4 and 3DRC catheters to engage the coronaries. Pigtail for hemodynamic measurement and left ventriculogram. A decision was made to proceed with intervention for that reason. The existing 4-[place] sheath exchanged to 6-[place] sheath. Guiding catheter was 3.5. Anticoagulation is Angiomax. The stent was Denzel 2.5 x 30, deployed at 17 atmospheres. Then, the balloon was withdrawn proximally and dilated at 25 atmospheres. At that time, repeated angiogram showed excellent results. For that reason, the case is finished. Attention was made to the right common femoral artery. The artery was closed using Angio-Seal VIP device. There was no bleeding. There was no blood loss. No complications. RESULTS: A. Coronary angiogram: 1. Left main: Free of disease. 2. LAD: There is proximal stent with 80% restenosis at the distal end of the stent extending into [place] artery long lesion. 3. Circumflex coronary artery: Minimal plaquing. 4. Right coronary artery, 20% to 30% plaquing. a. Hemodynamic: Aorta pressure 120/80, LV pressure 120/20. b. Left ventriculogram in the right anterior oblique view showed normal sized ventricle with an ejection fraction of 60%. PCI procedure guiding catheter 6-[place], XB 3.5. Stent is 2.5 x [address] to 20 atmospheres. Then, the balloon was withdrawn and inflated at 25 atmospheres. Lesion prior to intervention at 80% to 90% long inside the distal end of the stent and the artery distal to the stent following intervention at 0% COMPLICATIONS: None. BLOOD LOSS: None. MD SRIDHAR Reyes/RIAZ /[id number]
--- NOTE | 2019-10-29 18:15 | NUR ---
Pt meets DC criteria to floor . right groin assessed for s/s of complication and presence of hematoma. overall skin warm, dry, no discolor, and pulses present. IV patent to right lateral AC, 20g. VS WNL. Pt denies pain, sob, or need at this time. Family at bedside for visit prior to admit. Diagrams provided to spouse.. verbalized understanding. report called to RN . Pt placed on telemetry and transferred to [facility]. transfered to bed on arrival own strength w/o incident. bedside handoff performed.. - cgf
--- NOTE | 2019-10-29 20:10 | NUR ---
Received the pt in report.aaox3.ambulates.iv to right forarm is patent.right groin dressing is dry.bed locked and in lowest position.phone and call light within reach.instructed to call for assistance as needed.pt denied any needs.
[2019-10-29] MEDS ORDERED: ZOLPIDEM TARTRATE 5 MG TAB PO PRN (21:00)
[2019-10-29] MEDS ORDERED: ATORVASTATIN 40 MG TAB PO SCH (21:00)
[2019-10-29] MEDS: METOPROLOL TARTRATE 50 MG TAB PO SCH (21:10)
--- NOTE | 2019-10-29 22:16 | NUR ---
Blood ariane and sen to the lab for cardiac markers.pt tolerated well.
[2019-10-29] MEDS: HYDROCODONE/APAP 5MG-325MG TAB PO PRN (22:17)
[2019-10-29 22:30] LABS: CREATINE KINASE MB 1.1 ng/mL (0-5.0)
[2019-10-29] MEDS: SODIUM CHLORIDE 0.9% 1000ML 1,000 ML IV SCH ×2 (23:15→23:56)
--- NOTE | 2019-10-30 00:31 | NUR ---
Provided specimen container and explained need for collecting stool occult blood.
[2019-10-30 00:34] VITALS: BP 129/89
[2019-10-30] MEDS: HYDROCODONE/APAP 5MG-325MG TAB PO PRN (05:32)
[2019-10-30 05:35] VITALS: BP 144/101
--- NOTE | 2019-10-30 07:01 | NUR ---
REPORT GIVEN TO ONCOMING RN.STABLE CONDITION.
[2019-10-30 07:04] LABS: BASOPHILS % 0.5 % (0.0-1.0); EOSINOPHILS # (AUTO) 0.1 (0.0-0.4); EOSINOPHILS % 1.1 % (0.0-6.0); HEMATOCRIT 45.2 % (38.2-49.6); LYMPHOCYTES # (AUTO) 1.5 (1.0-3.2); LYMPHOCYTES % 24.2 % (18.0-39.1); MEAN CORPUSCULAR HEMOGLOBIN 30.5 pg (28-32); MEAN CORPUSCULAR HGB CONC 33.2 g/dL (31-35); MEAN CORPUSCULAR VOLUME 91.9 fL (81-99); MONOCYTES # (AUTO) 0.8 (0.2-0.8); NEUTROPHILS # (AUTO) 3.9 (2.1-6.9); NEUTROPHILS % 61.7 % (38.7-80.0); PLATELET COUNT 166 x10e3/uL (140-360); RED BLOOD COUNT 4.92 x10e6/uL (4.3-5.7); RED CELL DISTRIBUTION WIDTH 13.8 % (11.7-14.4)
[2019-10-30 07:23] LABS: ALANINE AMINOTRANSFERASE 18 IU/L (0-55); ALBUMIN 3.7 g/dL (3.5-5.0); ALKALINE PHOSPHATASE 55 IU/L (40-150); ANION GAP 18.9 mmol/L (8-16); BLOOD UREA NITROGEN 12 mg/dL (7-26); BUN/CREATININE RATIO 12 (6-25); CALCIUM 9.1 mg/dL (8.4-10.2); CARBON DIOXIDE 21 mmol/L (22-29); CHLORIDE 100 mmol/L (98-107); CREATININE, SERUM 1.01 mg/dL (0.72-1.25); EST GLOMERULAR FILTRATION RATE > 60 ML/MIN (60-); GLUCOSE 101 mg/dL (74-118); POTASSIUM 3.9 mmol/L (3.5-5.1); SODIUM 136 mmol/L (136-145)
[2019-10-30 07:38] LABS: CHOL/HDL RATIO 2.6 (3.9-4.7)
[2019-10-30 07:45] VITALS: BP 143/91
[2019-10-30 07:56] VITALS: BP 143/91
[2019-10-30 07:57] LABS: THYROID STIMULATING HORMONE 2.452 uIU/mL (0.350-4.940)
[2019-10-30] MEDS ORDERED: ASPIRIN 81 MG ENTERIC COATED PO SCH (09:00)
[2019-10-30] MEDS ORDERED: CLOPIDOGREL BISULFATE 75 MG TAB PO SCH ×2 (09:00)
[2019-10-30] MEDS: SODIUM CHLORIDE 0.9% 1000ML 1,000 ML IV SCH (09:15)
[2019-10-30] MEDS: METOPROLOL TARTRATE 50 MG TAB PO SCH (09:27)
--- NOTE | 2019-10-30 11:34 | Discharge Summary ---
DISCHARGE DIAGNOSIS: 1. Unstable coronary syndrome. 2. Hypertension. 3. Hypercholesterolemia. DISCHARGE INSTRUCTIONS: DIET: Low fat, low cholesterol diabetic diet. ACTIVITY: Limited 48 hours, then as tolerated. Followup in a week. MEDICATIONS: 1. Plavix 75 mg a day. 2. Aspirin 81 mg a day. 3. Atorvastatin 40 mg a day. 4. Lisinopril 10 mg a day. 5. Janumet one tablet twice a day. 6. Metoprolol-XL 50 mg a day. Followup next week in our office. For history and physical please refer to dictated note. COURSE IN THE HOSPITAL: The patient came to the emergency room with very unstable coronary syndrome with repeated chest pain. The patient continued to have chest pain. He was rushed from the emergency room to the slab conditioner supervisor where he had successful PCI and stenting of proximal LAD. The patient observed overnight. He was hemodynamically stable. He denied having any chest pain. On the next day he was ambulatory. His right groin showed no hematoma. The patient will be dismissed home on above-mentioned medication and instruction. He will be seen in followup. MD SRIDHAR Reyes/ELLISL /[id number]
== END 2019-10-30 11:15 | disposition home or self-care (01) ==
LOC: ER 07:33 → ERHOLD 08:28 → CATH LAB V 11:58 → MED/SURG3 18:33
PROVIDERS: ADMIT Internal Medicine Cardiovascular Disease; ATTEND Internal Medicine Cardiovascular Disease
DX: I25.110 Atherosclerotic heart disease of native coronary artery with unstable angina pectoris (principal); I10 Essential (primary) hypertension; E78.5 Hyperlipidemia, unspecified; Z95.5 Presence of coronary angioplasty implant and graft; E11.9 Type 2 diabetes mellitus without complications; I25.2 Old myocardial infarction; K21.9 Gastro-esophageal reflux disease without esophagitis; Z79.4 Long term (current) use of insulin; Z96.41 Presence of insulin pump (external) (internal); Z90.49 Acquired absence of other specified parts of digestive tract; Z98.890 Other specified postprocedural states; Z86.19 Personal history of other infectious and parasitic diseases; U07.1 COVID-19
CPT/HCPCS: 36415 ×2; 71045; 80053 ×2; 80061 ×2; 82550 ×2; 82553 ×2; 83735; 83880; 84443; 84484 ×2; 85025 ×2; 85379; 85610; 92928; 93005; 93306; 93458; 99284; C1766; C1876 ×2; C1887; G0378 ×2; J0583; J0690; J2001; J2250; J2270; J2405; J3010; J7030; J7121; Q9967; U0002; 99152; 99153

== ENCOUNTER 2019-11-10 14:09 | Emergency (ER) | payer BC ==
[~2019-11-10] VITALS: Ht 162.6 cm; Wt 81.2 kg
--- OUTSIDE RECORDS SUMMARY | 2019-11-10 14:32 | XMS REPORT | Clinical Summary ---
Author Author [facility] Organization [facility] Address Unknown Phone Unavailable Care Team Providers Care Assembler Fitter Name Role Phone Demian James MD PCP [...] Wilman Mendez MD Coronary artery disease involving [place] coronary artery of [place] heart without angina pectoris 06/22/2019 Hospital Procedural Cardiolo gy Encounter 06/22/2019 Travel Luis Spangler RN Chest Pain 06/21/2019 Telephone Cardiology 06/18/2019 Travel Wilman Mendez MD Coronary artery disease involving [place] coronary artery of [place] heart without angina pectoris 06/14/2019 Lab Procedural Cardiolo gy Wilman Mendez MD 06/14/2019 Lab Lab 06/14/2019 Travel Wilman Mendez MD Coronary artery disease involving [place] coronary artery of [place] heart without angina pectoris (Primary Dx) 06/13/2019 Telemedicine Cardiology 06/11/2019 Travel after 11/09/2018 Family History Medical History Relation Name Comments [...] disease PERFUSION IMAGING 9:15 AM CDT involving [place] co ronary artery of [place] heart without angina pectoris CV CARDIAC PET STRESS STAT 06/22/2019 Coronary artery disease TEST 9:15 AM CDT involving [place] co ronary artery of [place] heart without angina pectoris ECG 12-LEAD Routine 06/14/2019 Coronary artery disease 7:14 AM CDT involving [place] coronary artery of [place] heart without angina pectoris LIPID PANEL Routine 06/13/2019 Coronary artery disease 1:35 PM CDT involving [place] coronary artery of [place] heart without angina pectoris TROPONIN Routine 06/13/2019 Coronary artery disease 1:35 PM CDT involving [place] coronary artery of [place] heart without angina pectoris after 11/09/2018 Results * CV Cardiac PET Myocardial Perfusion Imaging (06/22/2019 9:15 AM CDT) Specimen Narrative Performed At [facility] See PDF file for full result Procedure Note Interface, Radiology Results In - 06/26/2019 6:38 PM CDT See PDF file for full result Performing Organization Address City/State/Zipcode Ph one Number [facility] [address] [place] [address] * Cv stress test (06/22/2019 9:15 AM CDT) Resting HR 72 [facility] Resting BP 130 [facility] Peak MET 1.0 [facility] Achieved Protocol Name Raul [facility] Time in 00:01:00 [facility] Exercise [...] [facility] Response to Exercise Overall BP [facility] Response To Exercise Reason for Protocol Complete [facility] Termination Stress Test -Waveform interpreted in [facility] Impression report associated with imag e study. No interpretation is provided as part of this Stress ECG report.- Specimen Narrative Performed At This result has an attachment that is n ot available. Performing Organization Address [facility] one Number [facility] [address] [place] [address] * ECG 12 lead (06/14/2019 7:14 AM CDT) Ventricular 68 [facility] rate Atrial rate 68 [facility] UT interval 156 [facility] QRSD interval 110 [facility] QT interval 408 [facility] QTC interval 433 [facility] P axis 1 38 [facility] QRS axis 1 -25 [facility] T wave axis -19 [facility] EKG impression Normal sinus rhythm-Cannot [facility] rule out Inferior infarct , age undetermined-Abnormal ECG-In automated comparison with ECG of 05-JUL-2018 11:11,-Left anterior fascicular block is no longer present-T wave inversion now evident in Inferior leads- Specimen Narrative Performed At This result has an attachment that is n ot available. Performing Organization Address [facility] one Number [facility] [address] [place] [address] * Troponin (06/13/2019 1:35 PM CDT) Troponin <0.01 < OR = 0.05 ng/mL [facility] Comment: DIAGNOSTICS In accord with published [place] recommendations, serial testing of troponin I at intervals of 2 to 4 hours for up to 12 to 24 hours is suggested in order to corroborate a single troponin I result. An elevated troponin alone is not sufficient to make the diagnosis of [place]. For additional information, please refer to http://education.SimilarS[employer].com.com/faq/TVV946 (This link is being provided for informational/ educational purposes only.) Specimen Blood Resulting Agency Comment Performing Organization Information: Site ID: [id number] Name: [facility] Address: [address] [place] [id number] Director: Ian Christian Performing Organization Address [facility] Ph one Number [facility] [employer] [place] [address] [phone] * Lipid panel (06/13/2019 1:35 PM CDT) [facility] Cholesterol, 132 <200 mg/dL [facility] total [facility]AGNOST[facility] [place] HDL cholesterol 38 (L) > OR = 40 mg/dL [facility] [place] Triglycerides 272 (H) <150 mg/dL [facility] Comment: DIAGNOSTICS If a non-fasting specimen was [place] collected, consider repeat triglyceride testing on a fasting specimen if clinically indicated. Fatimah et al. J. of Clin. Lipidol. 2015;9:129-169. LDL cholesterol 62 mg/dL (calc) [facility] calculated Comment: DIAGNOSTICS Reference range: <100 [place] Desirable range <100 mg/dL for primary prevention; <70 mg/dL for patients with CHD or diabetic patients with > or = 2 CHD risk factors. LDL-C is now calculated using the Ernie-Veronica calculation, which is a validated novel method providing better accuracy than the Friedewald equation in the estimation of LDL-C. Ernie SS et al. CASSIE. 2013;310(19): 8845-4889 (http://education.[employer]/faq/SXH900) Cholesterol/HDL 3.5 <5.0 (calc) [facility] ratio [facility]AGNOST[facility] [place] Non-HDL 94 <130 mg/dL (calc) [facility] cholesterol Comment: DIAGNOSTICS For patients with diabetes [place] plus 1 major ASCVD risk factor, treating to a non-HDL-C goal of <100 mg/dL (LDL-C of <70 mg/dL) is considered a therapeutic option. Specimen Blood Resulting Agency Comment Performing Organization Information: Site ID: [id number] Name: [facility] Address: [address] [place] [phone] Director: Ian Christian Performing Organization Address [facility] Ph one Number [facility] [employer] [place] [address] [place] [phone] after 11/09/2018 Insurance Type Payer Benefit Subscriber ID Effective Phone Address Plan / Dates Group PPO BCBS BCBS xxxxxxxxxxxx 2016- CHOICE Present PPO/VIOLA MEDRANO PPO -[id number] Advance Directives For more information, please contact: [phone] Patient Transformer Inspector Explanation Type Date Recorded Advance Directives, 05/20/2017 10:25 AM Living Will and Medical Power of Student Development Specialist
--- OUTSIDE RECORDS SUMMARY | 2019-11-10 14:32 | XMS REPORT | Continuity of Care Document ---
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 Problem 11/2014 Mohamed O Martinadi Chest Pain Active Problem 11/13/2014 Mohamed O Luisoudi S/P PTCA (percutaneous transluminal faheem nary angioplasty) Active Prob jake 11/13/2014 Mohamed O Martinadi Abnormal ECG Active Problem 11/13/2014 Mohamed O Martinadi Unstable Angina Active Problem 11/13/2014 Mohamed O Martinadi CAD, [place] Coronary Artery Ac tive Problem 11/2014 Mohamed Scotty Mackdi Hypertension Active 07/07/2013 [facility] Diabetes Mellitus Active 07/07/2013 [facility] Abnormal Liver Function Test A ctive 07/07/2013 [facility] Cirrhosis Active 07/07/2013 [facility] Coronary Artery Disease Active 07/07/2013 [facility] Insomnia Active 07/07/2013 [facility] Headache Active 07/07/2013 [facility] Keloid Scar Active 07/07/2013 [facility] Dermatitis Active 07/07/2013 [facility] External Hemorrhoids With Bleeding Active 07/07/2013 [facility] Dyspepsia Active 07/07/2013 [facility] TMJ Pain Active 07/07/2013 [facility] Acute Otitis Externa Active 07/07/2013 [facility] 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 07/07/2013 [facility] Medications Medication Details Route Status Patient Instructions Ordering Provider Order Date Source Zolpidem Tartrate ER 12.5 MG Oral Tablet Extended Release ; Start Date: 07/06/2013 (Active) Active 07/06/2013 [facility] Ciprodex 0.3-0.1 % Otic Suspension ; Start Date: 06/23/2013; End Date: (Active) Active 06/23/2013 [facility] Lisinopril 5 MG Oral Tablet ; Start Date: 04/13/2013 (Active) Active 04/13/2013 [facility] Januvia 100 MG Oral Tablet ; S tart Date: ; End Date: (Active) Inactive [facility] MetFORMIN HCl 1000 MG Oral Tablet ; Start Date: ; End Date: 08/14/2013 (Active) Active [facility] Plavix 1 tablet Orally Active 75 MG Orally Once a day [facility] O Lauryn Lisinopril 1 tablet Orally Active 5 MG Orally Once a day [facility] O Lauryn Lisinopril 1 tablet Orally Active 5 MG Orally Once a day [facility] O Lauryn Lipitor 1 tablet Orally Active 10 mg [facility] Metoprolol Tartrate 1/2 half t ablet Orally Active 100 MG Orally Twice a day [facility] Lauryn Metoprolol Tartrate 1 capsule by mouth Active 50 MG by mouth Twice a day [facility] Lauryn Atorvastatin Calcium 1 tablet Orally Active 10 mg Orally Once a day [facility] [place] Nitroglycerin 0.4 MG SUBL (Ac tive) Active [facility] MetFORMIN HCl 1000 MG Oral Tablet (Active) Active [facility] Januvia 100 MG Oral Tablet [...] [facility] Treximet TABS (Active) Active [facility] Imitrex 50 MG Oral Tablet (Ac tive) Active [facility] Byetta 5 MCG Pen 5 MCG/0.02ML Subcutaneous Solution (Active) Active [facility] Propranolol HCl 60 MG Oral Tablet (Active) Active [facility] Zolpidem Tartrate ER 12.5 MG Oral Tablet Extended Release (Active) A ctive [facility] Aspirin 81 MG Oral Tablet (Ac tive) Active [facility] Protonix 40 MG Oral Tablet Delayed Release (Active) Active [facility] Metoprolol Succinate ER 100 MG Oral Tabl et Extended Release 24 Hour (Active) A ctive [facility] Vasculera Oral Tablet (Active) Active [facility] Allergies, Adverse Reactions, Alerts Substance Category Reaction Severity Reaction type Status Date Reported Comments Source Demerol TABS drug allergy drug allergy Active [facility] Immunizations Immunization Date Given Site Status Last Updated Comments Source Influenza 12/31/2009 completed [facility] Results No Data Provided for This [...] ADM Date DC Date Status Source AUDIT [id number] 11/03/2012 11/03/2012 [facility] AUDIT [id number] 03/09/2013 03/09/2013 [facility] AUDIT [id number] 04/27/2013 04/27/2013 [facility] AUDIT [id number] 05/04/2013 05/04/2013 [facility] AUDIT [id number] 05/08/2013 05/08/2013 [facility] AUDIT [id number] 05/10/2013 05/10/2013 [facility] AUDIT [id number] 05/16/2013 05/16/2013 [facility] AUDIT [id number] 05/31/2013 05/31/2013 [facility] AUDIT [id number] 06/23/2013 06/23/2013 [facility] AUDIT [id number] 07/04/2013 07/04/2013 [facility] AUDIT [id number] 07/07/2013 07/07/2013 [facility] NPD, Provi fabrizio: [place], Status: Pen, Time: 2:45 PM [id number] 08/21/19 14 07/07/2013 [facility] Lucinda Combs MD PA Unknown [id number] 10/10/19 14 10/09/2013 Lucinda Combs MD PA Unknown [id number] 10/10/19 14 10/09/2013 MD FAISAL Hensley Unknown [id number] 10/10/19 14 10/09/2013 MD FAISAL Hensley Unknown [id number] 10/30/19 14 10/29/2013 MD FAISAL Hensley Unknown [id number] 10/30/19 14 10/29/2013 MD FAISAL Hensley Unknown [id number] 07/23/19 15 07/22/2014 MD FAISAL Hensley Unknown [id number] 08/20/19 15 08/19/2014 Lucinda Combs MD PA Unknown [id number] 08/27/19 15 08/26/2014 Lucinda Combs MD PA Unknown [id number] 11/13/19 15 11/12/2014 Lucinda Combs Procedures No Data Provided for This Section Assessment and Plan No Data Provided for This Section Plan of Care Plan of Care Date Source ENT Referral 07/07/2013 Routine 07/07/2013 [facility] Endocrinology Referral 05/16/2013 Routine 05/16/2013 [facility] Social History Social History Date Source Social History ElementQualifiersDate Rep orted Smoking . Status Never Smoker September 19, 2014 Alcohol Use No. September 19, 2014 Alcohol Screening: No. Points: 0, Interpretation: Negative September 19, 2014 Marital Status: . September 19, 2014 Do you drink alcohol? No. 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 [facility] Family History Value Date S ource Family history of Hypertension (V17.49); (Active) Family history of Coronary Artery Disease (V17.49); (Active) 07/07/2013 [facility] Family history of Hypertension (V17.49); (Active) Family history of Coronary Artery Disease (V17.49); (Active) 07/04/2013 [facility] Family history of Hypertension (V17.49); (Active) Family history of Coronary Artery Disease (V17.49); (Active) 06/23/2013 [facility] Family history of Hypertension (V17.49); (Active) Family history of Coronary Artery Disease (V17.49); (Active) 05/31/2013 [facility] Family history of Hypertension (V17.49); (Active) Family history of Coronary Artery Disease (V17.49); (Active) 05/16/2013 [facility] Family history of Hypertension (V17.49); (Active) Family history of Coronary Artery Disease (V17.49); (Active) 05/10/2013 [facility] Family history of Hypertension (V17.49); (Active) Family history of Coronary Artery Disease (V17.49); (Active) 05/08/2013 [facility] Family history of Hypertension (V17.49); (Active) Family history of Coronary Artery Disease (V17.49); (Active) 05/04/2013 [facility] Family history of Hypertension (V17.49); (Active) Family history of Coronary Artery Disease (V17.49); (Active) 04/27/2013 [facility] Family history of Hypertension (V17.49); (Active) Family history of Coronary Artery Disease (V17.49); (Active) 03/09/2013 [facility] Family history of Hypertension (V17.49); (Active) Family history of Coronary Artery Disease (V17.49); (Active) 11/03/2012 [facility] Advance Directives Order Name Results Value Date Source Advance Directives Advance Dir ectives No Advance Directives available. 07/07/2013 [facility] Advance Directives Advance Dir ectives No Advance Directives available. 07/04/2013 [facility] Advance Directives Advance Dir ectives No Advance Directives available. 06/23/2013 [facility] Advance Directives Advance Dir ectives No Advance Directives available. 05/31/2013 [facility] Advance Directives Advance Dir ectives No Advance Directives available. 05/16/2013 [facility] Advance Directives Advance Dir ectives No Advance Directives available. 05/10/2013 [facility] Advance Directives Advance Dir ectives No Advance Directives available. 05/08/2013 [facility] Advance Directives Advance Dir ectives No Advance Directives available. 05/04/2013 [facility] Advance Directives Advance Dir ectives No Advance Directives available. 04/27/2013 [facility] Advance Directives Advance Dir ectives No Advance Directives available. 03/09/2013 [facility] Advance Directives Advance Dir ectives No Advance Directives available. 11/03/2012 [facility] Functional Status No Data Provided for This Section
--- OUTSIDE RECORDS SUMMARY | 2019-11-10 14:33 | XMS REPORT | Continuity of Care Document ---
Author Author [facility] t Organization [facility] Address [facility] [place] [address] Phone Unavailable Care Team Providers Care Ivf Embryologist Name Role Phone Roshan JAMES PCP Chato NARANJO Attphys Unavailable BERNADINE ESTEBAN M.D. Attphys Unavailable Aníbal FIGUEROA, Luis Attphys Unavailable Vinod Dent MD Attphys [phone] DREW ONEAL Attphys Unavailable MARIE NOWAK APRN Attphys Unavailable REZA KANG M.D. Attphys Unavailable VINOD HOPKINS P.A. Attphys Unavailable KASANDRA SUGGS Attphys Unavailable ADONIS JAMES M.D. Attphys Unavailable BEVERLY ALONSO RD Attphys Unavailable MARIE NOWAK NP Attphys Unavailable DIEGO BERRIOS M.D. Attphys Unavailable RODDY HALEY P.A. Attphys Unavailable KALI KERNS M.D. Attphys Unavailable JIA MERINO NP Attphys Unavailable KASANDRA SUGGS Admphys Unavailable Payers Payer Name Policy Type Policy Number Effective Date Expiration Date S cristal [employer] [place] Ppo [id number] 2016 00:00:00 [facility] BCBSBCBS CHOICE PPO/FEDERAL EMPL [id number] esentPPO xxxxxxxxxxxx 2016 00:00:00 Vance Rastafari Problems Condition Name Condition Details Condition Category [...] lower ex tremity Disease Active 2018-07-26 00:00:00 Wilyt on Rastafari Central perforation of tympanic membrane Central perfo ration of tympanic membrane Disease Active 2018-07-26 00:00:00 Zenaida ston Rastafari Essential (primary) hypertension Essential (primary) hypertensio n Disease Active 2018-07-26 00:00:00 Wilyt on Rastafari Eustachian tube disorder Eustachian tube disorder Disease [...] pain Chest pain Problem Active 2015-10-20 00:00:00 [facility] History of Acute Myocardial Infarction History of Acute Myoc ardial Infarction Problem Resolved [facility] History of type 2 diabetes mellitus History of type 2 diabetes m ellitus Problem Resolved [facility] Arthralgia of temporomandibular joint Arthralgia of temporom andibular joint Problem Active [facility] Insomnia Insomnia Problem Active [facility] Cirrhosis [facility]rhosis Problem Active [facility] Hypertrophic scar Hypertrophic scar Problem Active [facility] Coronary artery disease Coronary artery disease Problem Active [facility] Central perforation of tympanic membrane Central perfo ration of tympanic membrane Problem Active [facility] Bleeding external hemorrhoids Bleeding external hemorrhoids Problem Active [facility] Hyperlipidemia Hyperlipidemia Problem Active [facility] Apnea Apnea Problem Active [facility] Need for influenza vaccination Need for influenza vaccination Problem Active [facility] Morales's esophagus Morales's esophagus Problem Active [facility] Obstructive sleep apnea Obstructive sleep apnea Problem Active [facility] Sinusitis, acute maxillary Sinusitis, acute maxillary Problem Active [facility] Neuropathy, diabetic Neuropathy, diabetic Problem Active [facility] Erectile dysfunction Erectile dysfunction Problem Active [facility] Eustachian tube disorder Eustachian tube disorder Problem Active [facility] Otalgia of left ear Otalgia of left ear Problem Active [facility] Vasovagal episode Vasovagal episode Problem Active [facility] Abnormal auditory perception, right Abnormal auditory perception , right Problem Active [facility] Dizziness Dizziness Problem Active [facility] Fatty liver Fatty liver Problem Active [facility] Dyspepsia Dyspepsia Problem Active [facility] Hemorrhoid Hemorrhoid Problem Active [facility] Essential (primary) hypertension Essential (primary) hypertensio n Problem Active [facility] Migraine headache Migraine headache Problem Active [facility] Allergic rhinitis Allergic rhinitis Problem Active [facility] LAD (lymphadenopathy), inguinal LAD (lymphadenopathy), inguinal Pro blem Active [facility] Edema of right ankle Edema of right ankle Problem Active [facility] Insulin pump in place Insulin pump in place Problem Active [facility] Diabetes mellitus type 2, uncontrolled Diabetes mellitus typ e 2, uncontrolled Problem Active [facility] Headache Headache Problem Active [facility] Pneumonia Pneumonia Problem Active [facility] Seasonal allergies Seasonal allergies Problem Active [facility] Post-viral cough syndrome Post-viral cough syndrome Problem Active [facility] Cellulitis of right lower extremity Cellulitis of right lower ex tremity Problem Active [facility] Sepsis Sepsis Problem Active [facility] Unstable angina pectoris Problem Active [facility] Pure hypercholesterolemia Pure hypercholesterolemia Active Problem 11/16/2017 Lucinda Mackdi Problem Active 23-11-11 02:48:56 [facility] Milo Angina of effort Khushi na of effort Active Problem 11/16/2017 Lucinda Smithoudi Problem Active 2017-11-16 02:48:56 Joy Pedraza Palpitations Palp itations Active Problem 11/16/2017 Mohteresa Smithoudi Problem Active 2017-11-16 02:48:56 Joy Pedraza Diabetes mellitus with complication Diabetes mellitus with complication Active Problem 11/16/2017 Mohteresa Smithoudi Problem Active 2017-11-16 02:48:56 Joy Pedraza Benign hypertensive heart disease Benign hypertensive heart disease Active Problem 11/16/2017 Lucinda Smithoudi Problem Active 2017-11-16 02:48:56 [facility] S/P PTCA (percutaneous transluminal coronary angioplas ty) S/P PTCA (percutaneous transluminal coronary angioplasty) Active Problem 11/16/2017 Lucinda Smithoudi Problem Active 2017-11-16 02:48:56 Joy Pedraza Abnormal EKG Abno rmal EKG Active Problem 11/16/2017 Lucinda Smithoudi Problem Active 2017-11-16 02:48:56 Joy Pedraza Diabetes mellitus with complication Diabetes mellitus with complication Active Problem 11/13/2014 Lucinda Smithoudi Problem Active 2014-11-13 02:45:02 [facility] Benign hypertensive heart disease Benign hypertensive heart disease Active Problem 11/13/2014 Lucinda Smithoudi Problem Active 2014-11-13 02:45:02 [facility] Hypercholesterolemia Hype rcholesterolemia Active Problem 11/13/2014 Mohamed Scotty Smithoudi Problem Active 2014-11-13 02:45:02 Joy Pedraza Angina Khushi na Active Problem 11/13/2014 Mohteresa Smithoudi Problem Active 2014-11-13 02:45:02 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 Chest Pain Ches t Pain Active Problem 11/13/2014 Lucinda Combs Problem Active 2014-11-13 02:45:02 [facility] [place] S/P PTCA (percutaneous transluminal coronary angioplas ty) S/P PTCA (percutaneous transluminal coronary angioplasty) Active Problem 11/13/2014 Lucinda Combs Problem Active 2014-11-13 02:45:02 [facility] [place] Abnormal ECG Abno rmal ECG Active Problem 11/13/2014 Lucinda Combs Problem Active 2014-11-13 02:45:02 [facility] Unstable Angina Unst able Angina Active Problem 11/13/2014 Lucinda Combs Problem Active 2014-11-13 02:45:02 [facility] CAD, [place] Coronary Artery CA D, [place] Coronary Artery Active Problem 11/13/2014 Lucinda Combs Problem Active 2014-11-13 02:45:02 [facility] Hypertension Hype rtension Active 07/07/2013 [facility] Problem Active 2013-07-07 16:00:13 Jaminscotty Pedraza Diabetes Mellitus Diab etes Mellitus Active 07/07/2013 [facility] Problem Active 2013-07-07 16:[facility]:13 [facility] Abnormal Liver Function Test A bnormal Liver Function Test Active 07/07/2013 [facility] Problem Active 2013-07-07 1 6:00:13 [facility] Cirrhosis Cirr hosis Active 07/07/2013 [facility] Problem Active 2013-07-07 16:00:13 [facility] Coronary Artery Disease Shon nary Artery Disease Active 07/07/2013 [facility] Problem Active 2013-07-07 16:00: 13 [facility] Insomnia Inso mnia Active 07/07/2013 [facility] Problem Active 2013-07-07 16:00:13 [facility] Headache Head ache Active 07/07/2013 [facility] Problem Active 2013-07-07 16:00:13 [facility] Keloid Scar Kelo id Scar Active 07/07/2013 [facility] Problem Active 2013-07-07 16:00:13 [facility] Dermatitis Derm atitis Active 07/07/2013 [facility] Problem Active 2013-07-07 16:00:13 [facility] External Hemorrhoids With Bleeding External Hemorrhoids With Bleeding Active 07/07/2013 [facility] Problem Active 2013-07-07 16:00:13 [facility] Dyspepsia Dysp epsia Active 07/07/2013 [facility] Problem Active 2013-07-07 16:00:13 Joy Pedraza TMJ Pain TMJ Pain Active 07/07/2013 [facility] Problem Active 2013-07-07 16:00:13 Joy Pedraza Acute Otitis Externa Acut e Otitis Externa Active 07/07/2013 [facility] Problem Active 2013-07-07 16:00:13 Joy Pedraza Central Perforation Of The Tympanic Membrane 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 07/07/2013 [facility] Problem Active 2013-07-07 16:00:13 Dex Pedraza Allergies, Adverse Reactions, Alerts Allergy Name Allergy Type Status Severity Reaction(s) Onset Date Inacti ve Date Treating Clinician Comments Source meperidine HCl Allergy to substance Active Moderate EXTREME VOM ITING 2019-10-29 00:00:00 [facility] Meperidine Propensity to adverse reactions to drug Active GI Intolerance 2016-09-13 00:00:00 Nausea, and vomitting Man marie Rastafari Demerol TABS Allergy to drug (finding) Active [facility] Bactrim TABS Allergy to drug (finding) Active [facility] Demerol TABS Demerol TABS Active [facility] Milo Family History Family Member Diagnosis Comments Start Date Stop Date Source Unknown Family Member Family history of Hypertension Family History [facility] Unknown Family Member Family History 2012-11-03 09:16:02 2 09:16:02 Joy Pedraza Mother Family history of diabetes mellitus [facility] Mother Family history of hypertension [facility] Mother Family history of hyperlipidemia [facility] Natural father No Known Problems Zenaida Wallace Natural mother Diabetes [facility] Natural mother Hypertension [place] Rastafari Natural sister Diabetes [place] [facility] Natural sister Hypertension [place] Rastafari Social History Social Habit Start Date Stop [...] EVERY 4 TO 6 HOURS NEEDED. [facility] Levocetirizine Dihydrochloride 5 MG Oral Tablet Levoce tirizine Dihydrochloride 5 MG Oral Tablet 2019-10-11 00:00:00 Yes BERNADINE ESTEBAN M.D. TAKE 1 TABLET BY MOUTH EVERY DAY [facility] Fluticasone Propionate 50 MCG/ACT Nasal Suspension Flu ticasone Propionate 50 MCG/ACT Nasal Suspension 2019-10-11 00:00:00 Yes BERNADINE Duque QD USE 1 SPRAY IN EACH NOSTRIL ONCE DAILY. [facility] traMADol (ULTRAM) 50 mg tablet 2019-06-13 [...] desouza empagliflozin (JARDIANCE) 25 mg tablet 8 12:17:04 2019-06-13 00:00:00 No 25mg QD Take 25 mg by mouth daily. Rajiv Wallace INSULIN GLARGINE,HUM.REC.ANLOG (KELLI FISH U-300 INSULI N SUBQ) 2019-06-13 12:16:55 2019-06-13 00:00:00 No 10U QD Inject 10 Units under the skin every evening. Rajiv Wallace anastrozole (ARIMIDEX) 1 mg chemo tablet 2019-06 12:16:40 2019-06-13 00:00:00 No .5mg Q7D Take 0.5 mg by mouth once a wee k. Rajiv Wallace lisinopriL (PRINIVIL) 10 mg tablet [...] MG Oral Tablet Disintegrating 2018-10-30 00:00:00 Yes [facility] atorvastatin (LIPITOR) 40 MG tablet 2018-07-26 00:00:00 [...] 1 TABLET BY MOUTH EVERY M ORNING [facility] metoprolol tartrate (LOPRESSOR) 50 mg tablet [...] by m outh daily. Rajiv Wallace Cephalexin Cephalexin 2018-02-17 09:03:00 2018-10-23 00:00:00 No 500 Four Times Daily [facility] NovoLOG 100 UNIT/ML Subcutaneous Solution NovoLOG 100 UNIT/ML Subcutaneous Solution 2018-01-09 00:00:00 Yes REZA KANG M.D. per insulin pump: basal: MN 0.25, 4AM 0.3, ICR 1:8 g, ISF 1:50>100-120 MDD:50 U [facility] Lisinopril 2017-11-16 02:48:56 Yes Lucinda Combs 1 tablet [facility] Microl Lancets Microlet Lancets 2017-11-08 15:25:02 Yes KHADIJAH KANG M.D. CHECK BLOOD SUGAR FOUR times daily [facility] Contour Next Test In Vitro Strip Contour Next Test In Vitro Strip 2017-09-19 00:00:00 Yes MARIE NOWAK APRN use to check BG 4xs d aily [facility] Gayatri Contour Monitor w/Device Kit Gayatri Contour Monitor w/D evice Kit 2017-08-19 00:00:00 Yes REZA KANG M.D. USE DIRECTED BG CH MAL [facility] pramipexole (MIRAPEX) 0.25 MG tablet 2016-09-04 00:00:00 Ye s .25mg QD Take 0.25 mg by mouth nightly. Rajiv Wallace JANUMET 50-1,000 mg per tablet 2016-09-03 00:00:00 Yes 1{tbl} Q.5D Take 1 tablet by mouth 2 (two) times a day with meals. Rajiv Wallace Plavix 2016-07-27 02:45:27 Yes Lucinda Combs [address] [facility] Lisinopril 2016-07-27 02:45:27 Yes Lucinda Combs [address] [facility] montelukast (SINGULAIR) 10 mg tablet 2016-06-29 00:00: 00 2019-06-13 00:00:00 No 10mg QD Take 10 mg by mouth nightly. Rajiv Wallace Metoprolol Tartrate 2016-06-23 02:45:06 Yes Lucinda Smitharyanwicho 1 capsule [facility] Atorvastatin Calcium 2016-06-17 02:45:17 Yes Lucinda Smithcherry 1 tablet [facility] Metoprolol Tartrate 2016-05-29 02:45:02 Yes Lucinda Lan boris 1/2 half tablet [facility] BD Pen Needle Sybil U/F 32G X 4 MM BD Pen Needle Sybil U/F 32G X 4 MM 2016-02-23 00:00:00 Yes MARIE NOWAK M[employer]NER use to inject 4xs andrey ly [facility] NovoLOG FlexPen 100 UNIT/ML Subcutaneous Solution Pen- injector NovoLOG FlexPen 100 UNIT/ML Subcutaneous Solution Pen-injector 2016-02-23 00:00:00 Yes MARIE NOWAK [employer] inject ICR 1:10 g with breakfast and lunch and 1:9 g with dinner plus CF 1:50 mg/dL MDD:30 U [facility] Janumet 50-1000 MG Oral Tablet Janumet 50-1000 MG Oral Table t 2015-11-13 00:00:00 Yes REZA KANG M.D. TA KE 1 TABLET BY MOUTH TWICE DAILY WITH MEALS [facility] Dexlansoprazole (Dexilant) 60 Mg CAP. Dexlansopra zole (Dexilant) 60 Mg CAP. 2015-10-24 10:08:00 2016-09-04 00:00:00 No 60 Twice A Day [facility] traMADol HCl - 50 MG Oral Tablet traMADol HCl - 50 MG Oral T ablet 2015-10-08 00:00:00 Yes MARIE NOAWK [employer]NER TAKE 1 TABLET EVERY 4 TO 6 HOURS NEEDED FOR PAIN. [facility] Lipitor 2014-11-13 02:45:02 Yes Lucinda Combs 1 tablet [facility] Lisinopril 10 MG Oral Tablet Lisinopril 10 MG Oral Tablet 2013-09-05 9 00:00:00 Yes TAKE 1 TABLET BY MOUTH ONCE DAILY [facility] Lisinopril 5 MG Oral Tablet 2013-07-07 16:00:13 Yes (Active) Joy Pedraza Plavix 75 MG Oral Tablet 2013-07-07 16:00:13 Yes (Active) Joy Pedraza Atorvastatin Calcium 20 MG Oral Tablet 2013-07-07 16:00:13 Yes (Active) Joy Pedraza Pepcid 40 MG Oral Tablet 2013-07-07 16:00:13 Yes (Active) Joy Pedraza Aspirin 81 MG Oral Tablet 2013-07-07 16:00:13 Yes (Active) Joy Pedraza Metoprolol Succinate ER 100 MG Oral Tablet Extended Release 24 Hour 2013-07-07 16:00:13 Yes (Active) Memor ial Mil[facility] Zolpidem Tartrate ER 12.5 MG Oral Tablet Extended Release 2013-07-06 05:00:00 Yes ; Start Date: 07/06/2013 (Active ) Joy Pedraza Zolpidem Tartrate ER 12.5 MG Oral Tablet Extended Release 2013-07-04 18:47:49 Yes (Active) Memmayra al [place] Vasculera Oral Tablet 2013-07-04 18:47:49 Yes (Active) Joy Pedraza Ciprodex 0.3-0.1 % Otic Suspension 2013-06-23 05:00:00 Yes ; Start Date: 06/23/2013; End Date: (Active) Joy Rauschann Propranolol HCl 60 MG Oral Tablet 2013-05-31 22:03:51 Yes (Active) Joy Pedraza Metoprolol Succinate ER 100 MG Oral Tablet Extended Release 24 Hour 2013-05-16 18:31:41 Yes (Active) Memor ial Milo Protonix 40 MG Oral Tablet Delayed Release 2013-05-10 18:16:49 Yes (Active) Joy Rauschann MetFORMIN HCl 1000 MG Oral Tablet 2013-04-27 15:17:29 Yes (Active) Joy Pedraza Januvia 100 MG Oral Tablet 2013-04-27 15:17:29 Yes (Active) Joy Pedraza Lisinopril 5 MG Oral Tablet 2013-04-13 06:00:00 [...] Date: 08/14/2013 (Active) Joy Pedraza Atorvastatin Calcium 20 MG Oral Tablet Atorvastatin Calcium 20 M G Oral Tablet Yes [facility] Metoprolol Tartrate 100 MG Oral Tablet Metoprolol Tartrate 100 M G Oral Tablet Yes Q12H TAKE 1 TABLET EVERY 12 HOURS ANDREY LY. [facility] Clopidogrel Bisulfate 75 MG Oral Tablet Clopidogrel Bisulfat e 75 MG Oral Tablet Yes 1 QD TAKE 1 TABLET DAILY. [facility] Divalproex Sodium 250 MG Oral Tablet Delayed Release D ivalproex Sodium 250 MG Oral Tablet Delayed Release Yes Q0.3 333D TAKE 1 TABLET 3 TIMES DAILY. [facility] Mirapex 0.25 MG TABS Mirapex 0.25 MG TABS Yes TAKE 1 TO 2 TABLETS AT BEDTIME [facility] Promethazine HCl - 25 MG Oral Tablet Promethazine HCl - 25 MG Oral Tablet Yes MARIE NOWAK [employer]NER Q6H TAKE 1 TABLET EVERY 6 HOURS NE EDED. [facility] Isosorbide Mononitrate ER 120 MG Oral Tablet Extended Release 24 Hour Isosorbide Mononitrate ER 120 MG Oral Tablet Extended Release 24 Hour Yes 1 QD TAKE 1 TABLET DAILY. [facility] Ezetimibe 10 MG Oral Tablet Ezetimibe 10 MG Oral Tablet Yes 1 QD TAKE 1 TABLET DAILY. [facility] Atorvastatin Calcium Atorvastatin Calcium Yes 40 Today At 9:00PM [facility] Clopidogrel Bisulfate (Plavix) 75 Mg TABLET Clopidogre l Bisulfate (Plavix) 75 Mg TABLET Yes 75 Daily [facility] Divalproex Sodium Divalproex Sodium Yes 250 Hemant y [facility] Insulin Aspart (Novolog) 100 Unit/1 Ml CARTRIDGE Insul in Aspart (Novolog) 100 Unit/1 Ml CARTRIDGE Yes As Needed [facility] Isosorbide Mononitrate (Isosorbide Mononitrate Er) 30 Mg TAB.ER.24H Isosorbide Mononitrate (Isosorbide Mononitrate Er) 30 Mg TAB.ER.24H Yes 120 Daily [facility] Jardeiance Jardeiance Yes 25 Daily [facility] Lisinopril Lisinopril Yes 5 Daily [facility] Metoprolol Tartrate Metoprolol Tartrate Yes 50 Twice A Day [facility] Nitroglycerin (Nitrostat) 0.4 Mg TAB.SUBL Nitroglyceri n (Nitrostat) 0.4 Mg TAB.SUBL Yes .4 As Needed as needed for Pain [facility] Pramipexole Di-Hcl (Pramipexole Dihydrochloride) 0.25 Mg TABLET Pramipexole Di- Hcl (Pramipexole Dihydrochloride) 0.25 Mg TABLET Yes 1 Bedtime [facility] Sitagliptin Phos/Metformin Hcl (Janumet 50-1,000 Mg Ta blet) 1 Each TABLET Sitagliptin Phos/Metformin Hcl (Janumet 50-1,000 Mg Tablet) 1 Each TABLET Yes 1000 Twice A Day [facility] Ondansetron Hcl (Zofran) 8 Mg TABLET Ondansetron Hcl (Zofran) 8 Mg TABLET 2019-10-30 00:00:00 No 1 As Needed [facility] Promethazine Hcl Promethazine Hcl 2019-10-30 00:00:00 No 25 As Needed for Nausea [facility] Tramadol Hcl (Ultram) 50 Mg TABLET Tramadol Hcl (Ultram) 50 Mg T ABLET 2019-10-30 00:00:00 No 50 Every 6 Hours as nee ded for Pain [facility] Montelukast Sodium Montelukast Sodium 2018-10-25 00:00:00 No 10 Daily@1700 [facility] Mextaxalone Mextaxalone 2018-10-23 00:00:00 No 800 Three Times A Day [facility] Sitagliptin Phos/Metformin Hcl (Janumet 50-1,000 Mg Ta blet) 1 Each TABLET Sitagliptin Phos/Metformin Hcl (Janumet 50-1,000 Mg Tablet) 1 Each TABLET 2018-10-23 00:00:00 No Twice A Day [facility] Clindamycin Hcl Clindamycin Hcl 2018-02-17 00:00:00 No 300 Every 8 Hours [facility] Sulfamethoxazole/Trimethoprim (Bactrim Ds Tablet) 1 Ea ch TABLET Sulfamethoxazole/Trimethoprim (Bactrim Ds Tablet) 1 Each TABLET 2018-02-17 00:00:00 No 1 Twice A Day [facility] Doxepin Hcl Doxepin Hcl 2018-02-14 00:00:00 No 5 Twice A Day for Itching Of Foot [facility] Esomeprazole Magnesium (Nexium) 2.5 Mg SUSPDR.PKT Esom eprazole Magnesium (Nexium) 2.5 Mg SUSPDR.PKT 2018-02-14 00:00:00 No 22.3 [facility] Fluocinonide/Emollient (Fluocinonide-E 0.05% Cream) 15 Gm CREAM..G. Fluocinonide/Emollient (Fluocinonide-E 0.05% Cream) 15 Gm CREAM..G. 2018-02-14 00:00:00 No .1 Twice A Day for Dermattis Of Fe et [facility] Insuln Asp Prt/Insulin Aspart (Novolog M ix 70-30 Flexpen Syrn) 100 Unit/1 Ml INSULN.PEN Insuln Asp Prt/Insulin Aspart (Novolog M ix 70-30 Flexpen Syrn) 100 Unit/1 Ml INSULN.PEN 2018-02-14 00:00:00 No [facility] Levocetirizine Dihydrochloride Levocetirizine Dihydrochloride 2018-02-14 00:00:00 No 5 Daily [facility] Lidocaine Hcl/D7.5w/Pf (Lidocaine 5% In D7.5w Ampul) 2 Ml AMPUL Lidocaine Hcl/D7.5w/Pf (Lidocaine 5% In D7.5w Ampul) 2 Ml AMPUL 2018-02-14 00:00:00 No 5 Twice A Day for Foot Discomfort [facility] Meclizine Hcl Meclizine Hcl 2018-02-14 00:00:00 No 25 Daily as needed for Prn [facility] Sitagliptin Phosphate (Januvia) 100 Mg TABLET Sitaglip tin Phosphate (Januvia) 100 Mg TABLET 2018-02-14 00:00:00 No 100 Daily [facility] Clonidine Hcl Clonidine Hcl 2016-09-05 00:00:00 No 1 Twice A Day as needed for Elevated Blood Pressure [facility] Atorvastatin Calcium Atorvastatin Calcium 2016-09-04 00:00:00 No 10 Today At 9:00PM [facility] Glimepiride Glimepiride 2016-09-04 00:00:00 No 4 A m [facility] Glimepiride Glimepiride 2016-09-04 00:00:00 No 1 P m [facility] Jardeiance Jardeiance 2016-09-04 00:00:00 No 10 Andrey ly [facility] Metformin Hcl (Metformin Hcl Er) 500 Mg TAB.ER.24 Metf ormin Hcl (Metformin Hcl Er) 500 Mg TAB.ER.24 2016-09-04 00:00:00 No 1000 Twi ce A Day [facility] Metformin Hcl (Metformin Hcl Er) 500 Mg TAB.ER.24H Met formin Hcl (Metformin Hcl Er) 500 Mg TAB.ER.24H 2016-09-04 00:00:00 No [facility] Ursodiol Ursodiol 2016-09-04 00:00:00 No 300 Daily [facility] Dexlansoprazole (Dexilant) 60 Mg CAP. Dexlansopra zole (Dexilant) 60 Mg CAP. 2015-10-24 00:00:00 No 60 Daily [facility] Flaxseed Oil (Flax Seed Oil) 1,000 Mg CAPSULE Flaxseed Oil (Flax Seed Oil) 1,000 Mg CAPSULE 2015-10-24 00:00:00 No 1000 Daily [facility] Sophianesha Sophianesha 2015-10-20 00:00:00 [facility] Lisinopril Lisinopril 2015-10-20 00:00:00 [facility] Metformin Hcl Metformin Hcl 2015-10-20 00:00:00 [facility] Propranolol Hcl Propranolol Hcl 2015-10-20 00:00:00 [facility] Sitagliptin Phosphate (Januvia) 100 Mg TABLET Sitaglip tin Phosphate (Januvia) 100 Mg TABLET 2015-10-20 00:00:00 [facility] Sumatriptan Succinate Sumatriptan Succinate 2015-10-20 00:00:00 [facility] Zolpidem Tartrate Zolpidem Tartrate 2015-10-20 00:00:00 [facility] Immunizations Ordered Immunization Name Filled Immunization Name Date Status Comments Source Influenza 2017-11-21 00:00:00 Completed [facility] Influenza 2016-12-04 00:00:00 Completed Unive [facility] Influenza 2016-01-19 00:00:00 Completed [facility]ive [facility] Fluvirin INJ 2014-01-24 09:23:00 [facility] Influenza 2009-12-31 00:00:00 [facility] Vital Signs Vital Name Observation Time Observation Value Comments Source Body Temperature 2019-10-30 07:56:00 97.9 [degF] [facility] BMI (Body Mass Index) 2019-10-29 19:55:00 30.7 kg/m2 [facility] Weight 2019-10-29 07:15:00 179 [lb_av] [facility] Systolic blood pressure 2019-06-22 08:00:00 157 mm[Hg] [place] Rastafari Diastolic blood pressure 2019-06-22 08:00:00 86 mm[Hg] Vance Rastafari Heart rate 2019-06-22 08:00:00 71 /min Vance Rastafari Respiratory rate 2019-06-22 08:00:00 19 /min [facility] Rastafari Body height 2019-06-22 08:00:00 160 cm [place] Rastafari Body weight 2019-06-22 08:00:00 81.647 kg Vance Rastafari BMI 2019-06-22 08:00:00 31.89 kg/m2 [place] Rastaf[place] Oxygen saturation in Arterial blood by Pulse oximetry 06-21 08:00:00 100 /min Vance Rastafari BP Systolic 2018-10-30 17:32:00 130 mm[Hg] Location: LUE; Positi on: Sitting [facility] BP Diastolic 2018-10-30 17:32:00 97 mm[Hg] Location: LUE; Positi on: Sitting [facility] Heart Rate 2018-10-30 17:32:00 91 /min [facility] BP Systolic 2018-10-30 17:29:00 151 mm[Hg] Location: LUE; Positi on: Sitting [facility] BP Diastolic 2018-10-30 17:29:00 99 mm[Hg] Location: LUE; Positi on: Sitting [facility] Height 2018-10-30 17:29:00 63 [in_us] [facility] Temperature 2018-10-30 17:29:00 97.7 [degF] Method: Temporal [facility] Heart Rate 2018-10-30 17:29:00 97 /min [facility] Respiration Rate 2018-10-30 17:29:00 16 /min [facility] BP Systolic 2018-05-31 14:16:00 116 mm[Hg] Location: ERI; Positi on: Sitting [facility] BP Diastolic 2018-05-31 14:16:00 76 mm[Hg] Location: ERI; Positi on: Sitting [facility] Height 2018-05-31 14:16:00 63 [in_us] [facility] Weight 2018-05-31 14:16:00 181.375 [lb_av] [facility] Body Mass Index Calculated 2018-05-31 14:16:00 32.13 kg/m2 [facility] Heart Rate 2018-05-31 14:16:00 66 /min [facility] O2 SAT 2018-04-29 09:34:00 97 % Source: RA [facility] BP Systolic 2018-04-29 09:31:00 106 mm[Hg] Location: RITIKA Positi on: Sitting [facility] BP Diastolic 2018-04-29 09:31:00 68 mm[Hg] Location: ERI; Positi on: Sitting [facility] Height 2018-04-29 09:31:00 63 [in_us] [facility] Weight 2018-04-29 09:31:00 177.25 [lb_av] [facility] Body Mass Index Calculated 2018-04-29 09:31:00 31.4 kg/m2 [facility] Temperature 2018-04-29 09:31:00 97.5 [degF] Method: Temporal [facility] Heart Rate 2018-04-29 09:31:00 80 /min [facility] Respiration Rate 2018-04-29 09:31:00 16 /min [facility] BP Systolic 2018-03-04 11:29:00 134 mm[Hg] Location: ERI; Positi on: Sitting [facility] BP Diastolic 2018-03-04 11:29:00 84 mm[Hg] Location: ERI; Positi on: Sitting [facility] Height 2018-03-04 11:29:00 63 [in_us] [facility] Weight 2018-03-04 11:29:00 179.125 [lb_av] [facility]ive [facility] Body Mass Index Calculated 2018-03-04 11:29:00 31.73 kg/m2 [facility] Temperature 2018-03-04 11:29:00 97.3 [degF] Method: Temporal [facility] Heart Rate 2018-03-04 11:29:00 79 /min Universi [facility] Respiration Rate 2018-03-04 11:29:00 16 /min Univ ersity [facility] BP Systolic 2018-02-20 17:51:00 133 mm[Hg] Location: LUE; Positi on: Sitting [facility] BP Diastolic 2018-02-20 17:51:00 83 mm[Hg] Location: LUE; Positi on: Sitting [facility] Height 2018-02-20 17:51:00 63 [in_us] [facility]i [facility] Weight 2018-02-20 17:51:00 179 [lb_av] [facility] Body Mass Index Calculated 2018-02-20 17:51:00 31.71 kg/m2 [facility] Temperature 2018-02-20 17:51:00 97.9 [degF] Method: Temporal [facility] Heart Rate 2018-02-20 17:51:00 83 /min [facility] Respiration Rate 2018-02-20 17:51:00 16 /min [facility] BP Systolic 2018-02-13 16:21:00 127 mm[Hg] Location: ERI; Positi on: Sitting [facility] BP Diastolic 2018-02-13 16:21:00 77 mm[Hg] Location: ERI; Positi on: Sitting [facility] Height 2018-02-13 16:21:00 63 [in_us] [facility] Weight 2018-02-13 16:21:00 184.0 [lb_av] Univers [facility]y [facility] Body Mass Index Calculated 2018-02-13 16:21:00 32.59 kg/m2 [facility] Temperature 2018-02-13 16:21:00 98.1 [degF] Method: Temporal [facility] Heart Rate 2018-02-13 16:21:00 89 /min [facility]i [facility] Respiration Rate 2018-02-13 16:21:00 16 /min [facility] BP Systolic 2018-02-09 15:35:00 126 mm[Hg] Location: LUE; Positi on: Sitting [facility] BP Diastolic 2018-02-09 15:35:00 71 mm[Hg] Location: LUE; Positi on: Sitting [facility] Height 2018-02-09 15:35:00 63 [in_us] [facility] Weight 2018-02-09 15:35:00 182.4 [lb_av] Univers [facility]y [facility] Body Mass Index Calculated 2018-02-09 15:35:00 32.31 kg/m2 [facility] Heart Rate 2018-02-09 15:35:00 93 /min Universi [facility] Temperature 2018-02-09 15:35:00 97.7 [degF] Method: Temporal [facility] Respiration Rate 2018-02-09 15:35:00 16 /min [facility] BP Systolic 2018-02-07 18:39:00 130 mm[Hg] Location: RUE; Positi on: Sitting [facility] BP Diastolic 2018-02-07 18:39:00 84 mm[Hg] Location: RUE; Positi on: Sitting [facility] Height 2018-02-07 18:39:00 63 [in_us] [facility] Weight 2018-02-07 18:39:00 185.125 [lb_av] [facility] Body Mass Index Calculated 2018-02-07 18:39:00 32.79 kg/m2 [facility] Temperature 2018-02-07 18:39:00 97.8 [degF] Method: Temporal [facility] Respiration Rate 2018-02-07 18:39:00 16 /min [facility] Heart Rate 2018-02-07 18:39:00 93 /min [facility]i [facility] BP Systolic 2018-01-19 15:58:00 150 mm[Hg] [facility] BP Diastolic 2018-01-19 15:58:00 92 mm[Hg] Universi [facility] Heart Rate 2018-01-19 15:58:00 61 /min [facility] BP Systolic 2018-01-19 15:57:00 152 mm[Hg] Location: LUE; Positi on: Sitting [facility] BP Diastolic 2018-01-19 15:57:00 93 mm[Hg] Location: ERI; Positi on: Sitting [facility] Heart Rate 2018-01-19 15:57:00 90 /min [facility] Height 2018-01-19 15:57:00 63 [in_us] [facility] Weight 2018-01-19 15:57:00 183.375 [lb_av] [facility] Body Mass Index Calculated 2018-01-19 15:57:00 32.48 kg/m2 [facility] Temperature 2018-01-19 15:57:00 97.6 [degF] Method: Temporal [facility] Respiration Rate 2018-01-19 15:57:00 16 /min [facility] BP Systolic 2017-12-20 16:10:00 137 mm[Hg] Location: ERI; Positi on: Sitting [facility] BP Diastolic 2017-12-20 16:10:00 87 mm[Hg] Location: ERI; Positi on: Sitting [facility] Height 2017-12-20 16:10:00 63 [in_us] [facility] Weight 2017-12-20 16:10:00 182.375 [lb_av] [facility] Body Mass Index Calculated 2017-12-20 16:10:00 32.31 kg/m2 [facility] Heart Rate 2017-12-20 16:10:00 80 /min [facility] Weight 2017-09-29 17:22:00 180.9 [lb_av] [facility] Body Mass Index Calculated 2017-09-29 17:22:00 32.05 kg/m2 [facility] BP Systolic 2017-09-19 16:26:00 145 mm[Hg] Location: LUE; Positi on: Sitting [facility] BP Diastolic 2017-09-19 16:26:00 88 mm[Hg] Location: ERI; Positi on: Sitting [facility] Height 2017-09-19 16:26:00 63 [in_us] [facility] Weight 2017-09-19 16:26:00 179.125 [lb_av] [facility] Body Mass Index Calculated 2017-09-19 16:26:00 31.73 kg/m2 [facility] Heart Rate 2017-09-19 16:26:00 86 /min [facility] BP Systolic 2017-06-20 16:03:00 133 mm[Hg] Location: LUE; Positi on: Sitting [facility] BP Diastolic 2017-06-20 16:03:00 84 mm[Hg] Location: LUE; Positi on: Sitting [facility] Height 2017-06-20 16:03:00 63 [in_us] [facility] Weight 2017-06-20 16:03:00 184.0625 [lb_av] [facility] Body Mass Index Calculated 2017-06-20 16:03:00 32.61 kg/m2 [facility] Heart Rate 2017-06-20 16:03:00 88 /min [facility] BP Systolic 2017-03-18 16:01:00 118 mm[Hg] Location: LLE; Positi on: Sitting [facility] BP Diastolic 2017-03-18 16:01:00 80 mm[Hg] Location: LLE; Positi on: Sitting [facility] Height 2017-03-18 16:01:00 63 [in_us] [facility] Weight 2017-03-18 16:01:00 182.0625 [lb_av] [facility] Body Mass Index Calculated 2017-03-18 16:01:00 32.25 kg/m2 [facility] Heart Rate 2017-03-18 16:01:00 81 /min [facility] BP Systolic 2017-02-19 10:26:00 130 mm[Hg] Location: LUE; Positi on: Sitting [facility] BP Diastolic 2017-02-19 10:26:00 85 mm[Hg] Location: LUE; Positi on: Sitting [facility] Height 2017-02-19 10:26:00 64 [in_us] [facility] Weight 2017-02-19 10:26:00 180.9 [lb_av] [facility] Body Mass Index Calculated 2017-02-19 10:26:00 31.05 kg/m2 [facility] Temperature 2017-02-19 10:26:00 97.8 [degF] Method: Temporal [facility] Heart Rate 2017-02-19 10:26:00 76 /min Location: L Brachial Artery; [facility] Respiration Rate 2017-02-19 10:26:00 18 /min [facility] Procedures Procedure Date / Time Performed Performing Clinician Lela garrett CV CARDIAC PET STRESS TEST 2019-06-22 09:15:40 Wilman Dent Rastafari CARDIAC PET MYOCARDIAL PERFUSION IMAGING 2019-06-22 09:15:40 Wilman [place] Rastafari ECG 12-LEAD 2019-06-14 07:14:45 Wilman Dent on Rastafari TROPONIN 2019-06-13 13:35:00 Wilman Dent on Rastafari LIPID PANEL 2019-06-13 13:35:00 Wilman Dent on Rastafari REPAIR OF HAMMERTOE 2019-02-08 00:00:00 [facility] CORRECTION HALLUX VALGUS 2019-02-08 00:00:00 [facility] SCOPE PLANTAR FASCIOTOMY 2019-02-08 00:00:00 [facility] [QL] TSH, 3RD GENERATION W/REFLEX TO FT4 2018-10-30 00:00:00 [facility] [COUNT INCLUDES THE [facility]] CBC (INCLUDES DIFF/PLT) 2018-10-30 00:00:00 [facility] [QL] CMP W/EGFR 2018-10-30 00:00:00 [facility] [] LIPID PANEL WITH REFLEX TO DIRECT LDL 2018-10-30 00:00:00 [facility] [COUNT INCLUDES THE [facility]] MICROALBUMIN, RANDOM URINE (W/CREATININE) 2018-10-30 00:00 :00 [facility] XRAY Ankle 3 views [id number] 2018-02-13 00:00:00 [facility] XRAY Foot series [id number] 2018-02-13 00:00:00 [facility] US Extremity lower venous Doppler Unilat [id number] 2018-02-07 00:00: 00 [facility] [QL] CMP W/EGFR 2017-06-20 00:00:00 [facility] [QL] MICROALBUMIN, RANDOM URINE (W/CREATININE) 2017-06-20 00:00 :00 [facility] [COUNT INCLUDES THE [facility]] LIPID PANEL 2017-06-20 00:00:00 [facility] History of Cath Stent Placement [facility] History of Wrist Surgery [facility] History of Back Surgery [facility] History of Cholecystectomy [facility] Plan of Care Planned Activity Planned Date Details Comments Source Future Scheduled Test 2019-12-06 00:00:00 INFLUENZA VACCINE [code = INFLUENZA VACCINE] [facility] Scheduled Test 2018-02-28 00:00:00 COLONOSCOPY SCREEN ING [code = COLONOSCOPY SCREENING] [facility] Scheduled Test 2018-02-28 00:00:00 SHINGLES VACCINES (#1) [code = SHINGLES VACCINES (#1)] [facility] Scheduled Test 2013-07-07 16:00:13 Plan of Care [code = 1877 6-5] [facility] Scheduled Test 2013-05-16 18:31:41 Plan of Care [code = 1877 6-5] [facility] Scheduled Test 1978-02-28 00:00:00 DIABETIC FOOT EXAM [code = DIABETIC FOOT EXAM] [facility] Scheduled Test 1978-02-28 00:00:00 URINE MICROALBUMIN [code = URINE MICROALBUMIN] [facility] Scheduled Test 1968 00:00:00 DIABETIC RETINAL E YE EXAM [code = DIABETIC RETINAL EYE EXAM] [facility] Heart Healthy Diet [facility] Encounters Start Date/Time End Date/Time Encounter Type Admission Type Attendi [facility] Care Department Encounter ID Source 2019-10-29 08:28:00 2019-10-30 11:15:00 Discharged Inpatient (obs) 1 KELSY NARANJO [facility] [id number] [facility] 2019-10-11 15:00:00 2019-10-11 15:00:00 Appointment; SARA ESTEBAN M.D. MOHEYUDDIN, AMINA, M.D. [facility] [id number] [facility] 2019-09-17 16:00:00 2019-09-17 16:00:00 Appointment; SARA ESTEBAN M.D. MOHEYUDDIN, AMINA, M.D. [facility] [id number] [facility] 2019-06-22 00:00:00 2019-06-22 00:00:00 Outpatient [facility] [id number] Vance Rastafari 2019-06-14 00:00:00 2019-06-14 00:00:00 Outpatient THOMAS DENT [facility] [id number] Vance Rastafari 2019-06-14 00:00:00 2019-06-14 00:00:00 Outpatient [facility]OMAS [facility]ENT [facility] [id number] [place] Rastafari 2019-06-13 00:00:00 2019-06-13 00:00:00 Outpatient [facility]ENT [facility] [id number] [facility] 2019-02-08 04:15:00 2019-02-08 04:15:00 Registered Surgical Day Car e DREW BILLINGSLEY [facility] [id number] [facility] 2018-10-30 18:45:00 2018-10-30 18:45:00 Appointment; MARIE NOWAK AP RN TRAN, THUY, APRN [facility] [id number] [facility] 2018-05-31 14:00:00 2018-05-31 14:00:00 Appointment; REZA KANG M.D. NASSIF, JULIA, M.D. [facility] [address] [id number] [facility] 2018-04-29 09:45:00 2018-04-29 09:45:00 Appointment; MIGUEL A HOPKINS P.A. SPOONER, JOSEPH, P.A. [facility] [id number] [facility] 2018-03-05 19:24:00 2018-03-13 16:14:00 Discharged Inpatient 1 KASANDRA SUGGS [facility] [id number] [facility] 2018-03-04 13:00:00 2018-03-04 13:00:00 Appointment; ADONIS JAMES M.D. MURPHY, THOMAS, M.D. [facility] [address] [id number] [facility] 2018-02-20 18:45:00 2018-02-20 18:45:00 Appointment; MARIE NOWAK AP RN TRAN, THUY, APRN [facility] [id number] [facility] 2018-02-14 12:04:00 2018-02-17 14:49:00 Discharged Inpatient 1 KASANDRA [facility]GGS [facility] [id number] [facility] 2018-02-13 16:15:00 2018-02-13 16:15:00 Appointment; MARIE NOWAK AP RN TRAN, THUY, APRN [facility] [id number] [facility] 2018-02-09 15:45:00 2018-02-09 15:45:00 Appointment; MARIE NOWAK AP RN TRAN, THUY, APRN [facility] [id number] [facility] 2018-02-07 19:00:00 2018-02-07 19:00:00 Appointment; MARIE NOWAK AP RN TRAN, THUY, APRN [facility] [id number] [facility] 2018-01-19 16:15:00 2018-01-19 16:15:00 Appointment; MIGUEL A HOPKINS P.A. SPOONER, JOSEPH, P.A. [facility] [id number] [facility] 2017-12-20 16:00:00 2017-12-20 16:00:00 Appointment; REZA KANG M.D. NASSIF, JULIA, M.D. [facility] [address] [id number] [facility] 2017-10-13 08:35:00 2017-10-13 08:35:00 Outpatient Lucinda MALONE [id number] [employer] 2017-10-10 08:40:00 2017-10-10 08:40:00 Outpatient Lucinda Combs [place] [id number] [employer] 2017-10-10 08:00:00 2017-10-10 08:00:00 Appointment; BEVERLY ALONSO RD WRIGHT, TISH, RD [facility] [id number] [facility] 2017-09-29 15:00:00 2017-09-29 15:00:00 Appointment; BEVERLY ALONSO RD WRIGHT, TISH, RD [facility] [id number] [facility] 2017-09-19 16:00:00 2017-09-19 16:00:00 Appointment; REZA KANG M.D. NASSIF, JULIA, M.D. [facility] [address] [id number] [facility] 2017-06-20 16:00:00 2017-06-20 16:00:00 Appointment; REZA KANG M.D. NASSIF, JULIA, M.D. [facility] [address] [id number] [facility] 2017-04-22 12:40:00 2017-04-22 12:40:00 Outpatient Lucinda Combs MD [place] [id number] [employer] 2017-03-18 16:00:00 2017-03-18 16:00:00 Appointment; REZA KANG M.D. NASSIF, JULIA, M.D. [facility] [address] [id number] [facility] 2017-02-19 10:15:00 2017-02-19 10:15:00 Appointment; DAONIS JAMES M.D. MURPHY, THOMAS, M.D. [facility] [address] [id number] [facility] 2017-01-24 08:27:00 2017-01-24 08:27:00 Outpatient Lucinda Combs MD [place] [id number] [employer] 2016-12-16 16:00:00 2016-12-16 16:00:00 Appointment; REZA KANG M.D. NASSIF, JULIA, M.D. [facility] [address] [id number] [facility] 2016-08-03 16:00:00 2016-08-03 16:00:00 Appointment; REZA KANG M.D. NASSIF, JULIA, M.D. [facility] [id number] [facility] 2016-07-26 13:51:00 2016-07-26 13:51:00 Outpatient Lucinda Combs MD [place] [id number] [employer] 2016-07-26 07:59:00 2016-07-26 07:59:00 Outpatient Lucinda Combs MD [place] [id number] [employer] 2016-07-26 07:57:00 2016-07-26 07:57:00 Outpatient Lucinda Combs MD [place] [id number] eClinicalWorks 2016-06-22 16:02:00 2016-06-22 16:02:00 Outpatient Lucinda Combs MD [place] [id number] eClinicalWorks 2016-06-16 10:55:00 2016-06-16 10:55:00 Outpatient Lucinda Combs MD PA [id number] eClinicalWorks 2016-05-28 13:39:00 2016-05-28 13:39:00 Outpatient Lucinda Combs MD PA [id number] eClinicalWorks 2016-05-28 09:31:00 2016-05-28 09:31:00 Outpatient Lucinda Combs MD [place] [id number] eClinicalWorks 2016-05-03 14:00:00 2016-05-03 14:00:00 Appointment; REZA KANG M.D. NASSIF, JULIA, M.D. UTP UTP [id number] [facility] 2016-03-25 18:45:00 2016-03-25 18:45:00 Appointment; MARIE NOWAK NP TRAN, THUY, NP UTP UTP [id number] [facility] 2016-03-25 13:00:00 2016-03-25 13:00:00 Appointment; DIEGO BERRIOS M.D. BYRD, MICHAEL, M.D. UTP UTP [id number] [facility] 2016-02-23 08:00:00 2016-02-23 08:00:00 Appointment; REZA KANG M.D. NASSIF, JULIA, M.D. UTP UTP [id number] [facility] 2015-11-13 15:30:00 2015-11-13 15:30:00 Appointment; REZA KANG M.D. NASSIF, JULIA, M.D. [facility] UTP [id number] [facility] 2015-10-08 09:30:00 2015-10-08 09:30:00 Appointment; RODDY HALEY P.A. CRUZ, LETICIA, P.A. UTP UTP [id number] [facility] 2015-09-23 15:45:00 2015-09-23 15:45:00 Appointment; DIEGO BERRIOS M.D. BYRD, MICHAEL, M.D. [facility] UTP [id number] [facility] 2015-09-15 15:00:00 2015-09-15 15:00:00 Appointment; DIEGO BERRIOS M.D. BYRD, MICHAEL, M.D. [facility] UTP [id number] [facility] 2015-08-16 09:15:00 2015-08-16 09:15:00 Appointment; ADONIS JAMES M.D. MURPHY, THOMAS, M.D. [facility] UTP [id number] [facility] 2015-08-07 14:00:00 2015-08-07 14:00:00 Appointment; REZA KANG M.D. NASSIF, JULIA, M.D. [facility] UTP [id number] [facility] 2015-07-26 10:15:00 2015-07-26 10:15:00 Appointment; ADONIS JAMES M.D. MURPHY, THOMAS, M.D. UTP UTP [id number] [facility] 2015-05-14 14:00:00 2015-05-14 14:00:00 Appointment; REZA KANG M.D. NASSIF, JULIA, M.D. UTP UTP [id number] [facility] 2015-05-10 10:00:00 2015-05-10 10:00:00 Appointment; KALI KERNS M.D. ECO, LOURDES, M.D. UTP UTP [id number] [facility] 2015-04-12 09:00:00 2015-04-12 09:00:00 Appointment; MERINO, IRVIN GOEL CHRISTINA, NP UTP UTP [id number] [facility] 2015-03-12 15:00:00 2015-03-12 15:00:00 Appointment; BEVERLY ALONSO RD WRIGHT, TISH, RD UTP UTP [id number] [facility] 2015-02-12 14:00:00 2015-02-12 14:00:00 Appointment; REZA KANG M.D. NASSIF, JULIA, M.D. UTP UTP [id number] [facility] 2015-02-01 09:30:00 2015-02-01 09:30:00 Appointment; ADONIS JAMES M.D. MURPHY, THOMAS, M.D. UTP UTP [id number] [facility] 2014-11-12 12:28:00 2014-11-12 12:28:00 [place] [id number] [employer]Works 2013-10-29 13:42:00 2013-10-29 13:42:00 [place] [id number] [employer]Works 2013-10-09 11:56:00 2013-10-09 11:56:00 [place] [id number] [employer]Works 2013-07-07 11:00:14 2013-07-07 11:00:13 Outpatient MHIE MHIE [id number] 2013-07-04 13:47:50 2013-07-04 13:47:49 Outpatient MHIE MHIE [id number] 2013-06-23 11:30:18 2013-06-23 11:30:18 Outpatient MHIE MHIE [id number] 2013-05-31 17:03:52 2013-05-31 17:03:51 Outpatient MHIE MHIE [id number] 2013-05-16 13:31:41 2013-05-16 13:31:41 Outpatient MHIE MHIE [id number] 2013-05-10 12:16:50 2013-05-10 12:16:49 Outpatient MHIE MHIE [id number] 2013-05-08 10:17:42 2013-05-08 10:17:42 Outpatient MHIE MHIE [id number] 2013-05-04 16:34:13 2013-05-04 16:34:13 Outpatient AMMON AMMON [id number] 2013-04-27 09:17:29 2013-04-27 09:17:29 Outpatient AMMON AMMON [id number] 2013-03-09 13:01:25 2013-03-09 13:01:25 Outpatient AMMON AMMON [id number] 2012-11-03 04:16:24 2012-11-03 04:16:02 [id number] Results Test Description Test Time Test Comments Results Result Comments Source Blood leukocytes automated count (number/volume) 2019-10-30 06:50:00 Test Item White Blood Count (test code = 6690-2) 6.27 4.8-10.8 [facility] automated count (number/volume)2019-10-30 06:50:00* Test Item Value Reference Range Interpretation Comments Red Blood Count (test code = 789-8) 4.92 4.3-5.7 [facility] hemoglobin measurement (moles/volume)2019-10-30 06:50:00* Test Item Value Reference Range Interpretation Comments Hemoglobin (test code = 77012-4) 15.0 14.0-18.0 [facility]lineAutomated blood hematocrit (volume fraction)2019-10-30 06:50:00* Test Item Value Reference Range Interpretation Comments Hematocrit (test code = 4544-3) 45.2 38.2-49.6 [facility]lineAutom[facility] erythrocyte mean corpuscular tyopnr7218-18-71 06:50:00* Test Item Value Reference Range Interpretation Comments Mean Corpuscular Volume (test code = 787-2) 91.9 81-99 [facility]lineAutom[facility] erythrocyte mean corpuscular hemoglobin (mass per erythrocyte)2019-10-30 06:50:00* Test Item Value Reference Range Interpretation Comments Mean Corpuscular Hemoglobin (test code = 785-6) 30.5 28-32 [facility]line[facility] erythrocyte mean corpuscular hemoglobin concentration measurement (mass/volume)2019-10-30 06:50:00* Test Item Value Reference Range Interpretation Comments Mean Corpuscular Hemoglobin Concent (test code = 786-4) 33.2 31-35 [facility]lineRDW YkpKh-Amj8414-87-25 06:50:00* Test Item Value Reference Range Interpretation Comments Red Cell Distribution Width (test code = 54187-7) 13.8 11.7 -14.4 [facility]lineAutom[facility] blood platelet count (count/volume)2019-10-30 06:50:00* Test Item Value Reference Range Interpretation Comments Platelet Count (test code = 777-3) 166 140-360 [facility]lineAutomated blood segmented neutrophil count as percentage of total ybltcoevpa3203-67-54 06:50:00* Test Item Value Reference Range Interpretation Comments Neutrophils (%) (Auto) (test code = 64372-5) 61.7 38.7-80.0 [facility]lineAutom[facility] blood lymphocyte count as percentage ot total qycawjaogk1266-49-26 06:50:00* Test Item Value Reference Range Interpretation Comments Lymphocytes (%) (Auto) (test code = 736-9) 24.2 18.0-39.1 [facility]lineAutom[facility] blood monocyte count as percentage of total sqatzrufue0937-89-12 06:50:00* Test Item Value Reference Range Interpretation Comments Monocytes (%) (Auto) (test code = 5905-5) 12.0 4.4-11.3 [facility]lineAutom[facility] blood eosinophil count as percentage of total rassnlhmgw7944-57-68 06:50:00* Test Item Value Reference Range Interpretation Comments Eosinophils (%) (Auto) (test code = 713-8) 1.1 0.0-6.0 [facility]lineAutom[facility] blood basophil count as percentage of total bsrewlaavr4155-51-23 06:50:00* Test Item Value Reference Range Interpretation Comments Basophils (%) (Auto) (test code = 706-2) 0.5 0.0-1.0 [facility] ShorelineFluoroscopic procedure less than one hour ntaoscah9496-22-74 06:50:00* Test Item Value Reference Range Interpretation Comments IM GRANULOCYTES % (test code = IM GRANULOCYTES %) 0.5 0.0- 1.0 [facility]lineAutom[facility] blood neutrophil count 2019-10-30 06:50:00* Test Item Value Reference Range Interpretation Comments Neutrophils # (Auto) (test code = 751-8) 3.9 2.1-6.9 [facility]lineBlood lymphocytes count (number/volume) 2019-10-30 06:50:00* Test Item Value Reference Range Interpretation Comments Lymphocytes # (Auto) (test code = 05583-3) 1.5 1.0-3.2 [facility]line[facility] monocytes automated count (number/volume)2019-10-30 06:50:00* Test Item Value Reference Range Interpretation Comments Monocytes # (Auto) (test code = 742-7) 0.8 0.2-0.8 [facility]lineAutomated blood eosinophil count 2019-10-30 06:50:00* Test Item Value Reference Range Interpretation Comments Eosinophils # (Auto) (test code = 711-2) 0.1 0.0-0.4 [facility]lineAutomated blood basophil count (count/volume)2019-10-30 06:50:00* Test Item Value Reference Range Interpretation Comments Basophils # (Auto) (test code = 704-7) 0.0 0.0-0.1 [facility] ShorelineFluoroscopic procedure less than one hour lckyktmh4480-16-77 06:50:00* Test Item Value Reference Range Interpretation Comments Absolute Immature Granulocyte (auto (kareen t code = Absolute Immature Granulocyte (auto) 0.03 0-0.1 [facility] or [facility] sodium measurement (moles/volume)2019-10-30 06:50:00* Test Item Value Reference Range Interpretation Comments Sodium Level (test code = 2951-2) 136 136-145 [facility] or plasma potassium measurement (moles/volume)2019-10-30 06:50:00* Test Item Value Reference Range Interpretation Comments Potassium Level (test code = 2823-3) 3.9 3.5-5.1 [facility] or plasma chloride measurement (moles/volume)2019-10-30 06:50:00* Test Item Value Reference Range Interpretation Comments Chloride Level (test code = 2075-0) 100 98-107 [facility]ererum or plasma carbon dioxide, total measurement (moles/volume)2019-10-30 06:50:00* Test Item Value Reference Range Interpretation Comments Carbon Dioxide Level (test code = 2028-9) 21 22-29 [facility] or plasma anion xnz2907-07-18 06:50:00* Test Item Value Reference Range Interpretation Comments Anion Gap (test code = 93050-8) 18.9 8-16 [facility]ererum or plasma urea nitrogen measurement (mass/volume)2019-10-30 06:50:00* Test Item Value Reference Range Interpretation Comments Blood Urea Nitrogen (test code = 3094-0) 12 - [facility]ererum or plasma creatinine measurement (mass/volume)2019-10-30 06:50:00* Test Item Value Reference Range Interpretation Comments Creatinine (test code = 2160-0) 1.01 0.72-1.25 [facility]ererum or plasma urea nitrogen/creatinine mass wssvz2684-25-80 06:50:00* Test Item Value Reference Range Interpretation Comments BUN/Creatinine Ratio (test code = 3097-3) 12 - [facility] ShorelineEstimated glomerular filtration rate (GFR) hewkgzikvheiw5992-10-42 06:50:00* Test Item Value Reference Range Interpretation Comments Estimat Glomerular Filtration Rate (test code = 839285821) > 60 >60 Ranges were taken from the National Kidney Disease Education Program and the [facility] literature.Reference ranges:60 or greater: Dcosoa38-98 ( for 3 consecutive months): Chronic kidney disease 15 or less: Kidney failureCHRISTUS [facility] – ShorelineGlucose ztqszmmipfj7206-11-38 06:50:00* Test Item Value Reference Range Interpretation Comments Glucose Level (test code = TLM6553) 101 74-118 [facility]ererum or plasma calcium measurement (mass/volume)2019-10-30 06:50:00* Test Item Value Reference Range Interpretation Comments Calcium Level (test code = 47907-4) 9.1 8.4-10.2 [facility]ererum or plasma total bilirubin measurement (mass/volume)2019-10-30 06:50:00* Test Item Value Reference Range Interpretation Comments Total Bilirubin (test code = 1975-2) 0.8 0.2-1.2 [facility] ShorelineFluoroscopic procedure less than one hour aefixzcn7220-55-29 06:50:00* Test Item Value Reference Range Interpretation Comments Aspartate Amino Transf (AST/SGOT) (test code = Aspartate Amino Transf (AST/SGOT)) 21 5-34 [facility]ererum or plasma alanine aminotransferase measurement (enzymatic activity/volume)2019-10-30 06:50:00* Test Item Value Reference Range Interpretation Comments Alanine Aminotransferase (ALT/SGPT) (test code = 1742-6) 18 0-55 [facility]ererum or plasma protein measurement (mass/volume)2019-10-30 06:50:00* Test Item Value Reference Range Interpretation Comments Total Protein (test code = 2885-2) 7.5 6.5-8.1 [facility]ererum or plasma albumin measurement (mass/volume)2019-10-30 06:50:00* Test Item Value Reference Range Interpretation Comments Albumin (test code = 1751-7) 3.7 3.5-5.0 [facility] ShorelinePlasma globulin measurement (mass/volume) 2019-10-30 06:50:00* Test Item Value Reference Range Interpretation Comments Globulin (test code = 38798-5) 3.8 2.3-3.5 [facility]ererum or plasma albumin/globulin mass rkcxf5878-47-79 06:50:00* Test Item Value Reference Range Interpretation Comments Albumin/Globulin Ratio (test code = 1759-0) 1.0 0.8-2.0 [facility]ererum or plasma alkaline phosphatase measurement (enzymatic activity/volume)2019-10-30 06:50:00* Test Item Value Reference Range Interpretation Comments Alkaline Phosphatase (test code = 6768-6) 55 40-150 [facility]ererum or plasma triglyceride measurement (mass/volume)2019-10-30 06:50:00* Test Item Value Reference Range Interpretation Comments Triglycerides Level (test code = 2571-8) 131 0-149 [facility]ererum or plasma cholesterol measurement (mass/volume)2019-10-30 06:50:00* Test Item Value Reference Range Interpretation Comments Cholesterol Level (test code = 2093-3) 79 0-199 Less than 200 mg/dL Low Akgj802 - 239 mg/dL Borderline Ouax086 m g/dl and greater High Risk [facility]ererum or plasma cholesterol in LDL measurement (mass/volume) 2019-10-30 06:50:00* Test Item Value Reference Range Interpretation Comments LDL Cholesterol (test code = 2089-1) 23 60-130 [facility]ererum or plasma cholesterol in HDL measurement (mass/volume)2019-10-30 06:50:00* Test Item Value Reference Range Interpretation Comments HDL Cholesterol (test code = 2085-9) 30 40-60 [facility]ererum or plasma total cholesterol/cholesterol in HDL mass lmzvd5824-88-19 06:50:00* Test Item Value Reference Range Interpretation Comments Cholesterol/HDL Ratio (test code = 9830-1) 2.6 3.9-4.7 [facility]ererum or plasma creatine kinase measurement (enzymatic activity/volume)2019-10-30 06:50:00* Test Item Value Reference Range Interpretation Comments Creatine Kinase (test code = 2157-6) 108 30-200 [facility]ererum or plasma creatine kinase MB measurement (mass/volume)2019-10-30 06:50:00* Test Item Value Reference Range Interpretation Comments Creatine Kinase MB (test code = 29424-8) 1.00 0-5.0 [facility] ShorelineTroponin I measurement by highly sensitive enzyme totkigotyfh4121-71-58 06:50:00* Test Item Value Reference Range Interpretation Comments Troponin I (test code = 90837-7) 0.092 0-0.300 [facility]ererum or plasma thyrotropin measurement by detection limit <= 0.005 miu/l (units/volume)2019-10-30 06:50:00* Test Item Value Reference Range Interpretation Comments Thyroid Stimulating Hormone (TSH) (test code = 84485-2) 2.452 0.350-4.940 [facility] ShorelineFluoroscopic procedure less than one hour dgfqkleb8027-43-50 11:16:00* Test Item Value Reference Range Interpretation Comments Coronavirus (PCR) (test code = Coronavirus (PCR)) DETECTED NOTD ETECTED SARS-COV2/RT-PCR CEPHEIDResults are for the detection of SARS-COV-2 RNA. The TRE S-COV-2 RNA is generally detectable in nasopharyngeal swab specimens during the acute phase of infection. Positive results are indicitive of active infection wi SARS-COV-2; clinical correlation with patient history and other diagnostic in formation is necessary to determine patient infection status. Positive results d o not rule out bacterial infection or co-infection with other viruses. The agent detected may not be the definite cause of the disease.The limit of detection for this assay is 250 copies/mLThe SARS-CoV-2 test is a rapid, real-time RT-PCR test intended for the qualitative detection of nucleic acid from SARS-CoV-2 in rogerio opharyngeal swab specimen collected from individuals suspected of COVID-19 by eir healthcare provider. This test has not been Food and Drug Administration (FD A) cleared or approved and has been authorized by FDA under an Emergency Use Aut horization (EUA). This EUA will be effective until the declaration that circumst ances exist justifying the authorization of the emergency use of in vitro diagno stic test for detection and or diagnosis of COVID-19 is terminated under section 564(b) of the Act, or the the EUA is revoked under 564(g) of the ACT.Results ca lled to OMAYRA PATEL RN at 1222 on 10/29/19 by Alexis Padron. RB OK.[facility]lineCHEST SINGLE (PORTABLE)2019-10-29 08:50:00 [facility] [address] [address] Patient Name: HANG BURKS MR #: [id number] : 1970 Age/Sex: 49/M Req #: [id number] Adm Physician: Ordered by: KELSY NARANJO MD Report #: [id number] Location: ER Room/Bed: Procedure: [id number] DX/CHEST SINGLE (PORTABLE) Exam Date: 10/29/19 Exam Time: REPORT STATUS: Signed TECHNIQ UE: Frontal view of the chest. INDICATION: Y CP [id number] 0800 COMPARISON: 10/23/2018 DISCUSSION: Limited evaluation due to portable technique. Lines and hardware: Overlying EKG leads are noted. Heart and mediastinum: Cardiomediastinal silhouette is top normal in size, stable. Pulm onary vascularity is within normal limits. Trachea projects midline. Lungs a nd pleura: No focal airspace consolidation. No pleural effusion. No pneumothor ax. Soft tissues and bones: No acute abnormality. IMPRESSION: Negative for acute intrathoracic process. Signed by: Luis Koch MD on 10/06 8:51 AM Dictated By: LUIS KOCH MD 0 Transcribed By: VIOLET on 10/29/19850 COPY TO: KELSY NARANJO MD Prothrombin time (PT) in platelet poor plasma by coagulation nwyja7041-80-72 07:22:00* Test Item Value Reference Range Interpretation Comments Prothrombin Time (test code = 5902-2) 12.6 11.9-14.5 [facility] ShorelineINR in Platelet poor plasma by Coagulation dclcc3514-93-62 07:22:00* Test Item Value Reference Range Interpretation Comments Prothromb Time International Ratio (test code = 6301-6) 0.90 Oral Anticoagulant Therapy INR Values:1. Low Intensity Therapy 1.5 - 2.02 . Moderate Intensity Therapy 2.0 - 3.03. High Intensity Therapy(1) 2.5 - 3. 54. High Intensity Therapy(2) 3.0 - 4.05. Panic Value INR > 5.0 [facility] ShorelineFibrin D-dimer DDU measurement in platelet poor plasma (mass/volume)2019-10-29 07:22:00* Test Item Value Reference Range Interpretation Comments D-Dimer Quantitative (PE/DVT) (test code = 37012-9) < 100 0- 400 The Triage D-Dimer Test has not been evaluated for use as sole evidence for the presence or absence of PE or DVT. As with all in vitro diagnostic tests, the te st results should be interpreted by the physician in conjunction with clinical f indings and other test results.Test results are reported in D-dimer units.[facility] or plasma magnesium measurement (mass/volume)2019-10-29 07:22:00* Test Item Value Reference Range Interpretation Comments Magnesium Level (test code = 98272-3) 1.6 1.3-2.1 [facility] ShorelineBNP Fry-eByl9594-25-24 07:22:00* Test Item Value Reference Range Interpretation Comments B-Type Natriuretic Peptide (test code = 12738-9) < 10.0 0-100 [facility] ShorelineCv stress kvvj5767-81-34 05:37:38* Test Item Value Reference Range Interpretation Comments Resting HR (test code = 8699677190) 72 Resting BP (test code = 0439032126) 130 Peak MET Achieved (test code = 5011269140) 1 Protocol Name (test code = 6874056168) Lexiscan Time in Exercise Phase (test code = 6840643889) 00:01:00 Max Systolic BP (test code = 1346670515) 148 Max Diastolic BP (test code = 2817994097) 70 Max Heart Rate (test code = 2858061015) 100 Max Predicted Heart Rate (test code = 7776980644) 169 Target HR Formula (test code = 4689320385) (220 - Age)*100% Test Indication (test code = 3103410909) chest pain Arrhy During Ex (test code = 1777193912) ECG Interp Before EX (test code = 3387062641) ECG Interp During Ex (test code = 7642746139) Ex Summary Comment (test code = 3126422614) Overall HR Response to Exercise (test code = 9425678738) Overall BP Response To Exercise (test code = 7279145687) Reason for Termination (test code = 8019540438) Protocol Complete Stress Test Impression (test code = 9669535701) -Wavef orm interpreted in report associated with image study. No interpretation is provided as part of this Stress ECG report.- [place] [facility] Cardiac PET Myocardial Perfusion Bmsyfhs1173-98-45 16:42:43 Interface, Radiology Results In - 06/26/2019 6:38 PM CDTSee PDF file for full r [facility] MethodistLipid xxbgg3032-41-12 14:45:00* Test Item Value Reference Range Interpretation [...] 2015;9:129-169. LDL cholesterol calculated (test code = 89645-9) 62 mg/dL (calc) Reference range: <100 Desirable range <100 mg/dL for primary prevention; <70 mg/dL for patients with CHD or diabetic patients with > or = 2 CHD risk factors. LDL-C is now calculated using the Ernie-Martin calculation, which is a validated novel method providing better accuracy than the Friedewald equation in the estimation of LDL-C. Ernie SS et al. CASSIE. 2013;310(19): 6078-1989 (http:/ /education.Who Can Fix My Car/faq/SDZ653) Cholesterol/HDL ratio (test code = 9830-1) 3.5 <5.0 (calc) Non-HDL cholesterol (test code = 16385-4) 94 <130 mg/dL ( calc) For patients with diabetes plus 1 major ASCVD risk factor, treating to a non-HDL-C goal of <100 mg/dL (LDL-C of <70 mg/dL) is considered a therapeutic option. PEGGY (test code = PEGGY) Performing Organization Info rmation: Site ID: [email or web address] Name: [facility] Address: [address] [place] [id number] Director: Ian Christian Lab Interpretation (test code = 94884-3) Abnormal [place] EeblfnsuyCmpaoiik3948-90-20 14:45:00* Test Item Value Reference Range Interpretation Comments Troponin (test code = 83703-4) <0.01 < OR = 0.05 ng/mL In accord with published recommendations, serialtesting of troponin I at intervals of 2 to 4 hoursfor up to 12 to 24 hours is suggested in order tocorroborate a single troponin I result. An elevatedtroponin alone is not sufficient to make thediagnosis of GA. For additional information, please refer to http://education.adQ/faq/RPC819 (This link is being provided for informational/educational purposes only.) PEGGY (test code = PEGGY) Performing Organization Info rmation: Site ID: [email or web address] Name: [facility] Lab Address: [address] [place] [id number] Director: Ian Christian [place] [facility] 12 muha2486-28-76 09:36:42* Test Item Value Reference Range Interpretation Comments Ventricular rate (test code = 253) 68 Atrial rate (test code = 255) 68 NE interval (test code = 266) 156 QRSD [...] wave inversion now evident in Inferior leads- Vance MethodistFOOT LEFT AP DRD7395-11-33 09:16:00 [facility] [address] [address] Patient Name: HANG BURKS MR #: [id number] : 1970 Age/Sex: 48/M Req #: [id number] Adm Physician: Ordered by: DREW ONEAL DPM Report #: [id number] Location: OR Room/Bed: Procedure: [id number] DX/FOOT LEFT AP LAT Exam Date: 02/08/19 [...] 9:21 AM Dictated By: JOSE MOHR MD [facility] Signed By: JOSE MOHR MD on 02/08/19920 Transcribed By: VIOLET marie 02/08/19920 COPY TO: DREW ONEAL DPM Capillary blood glucose measurement by glucometer (mass/volume)2019-02-08 07:27:00* Test Item Value Reference Range Interpretation Comments Bedside Glucose (test code = 49958-7) 134 70-120 Meter ID: [id number] [facility][] LIPID PANEL WITH REFLEX TO DIRECT [id number] 11:16:00* Test Item Value Reference Range Interpretation Comments CHOLESTEROL, TOTAL; Normal (test code = 2093-3) 167 mg/dl <200 N HDL CHOLESTEROL; Normal (test code = 2085-9) 50 mg/dl >40 N TRIGLYCERIDES; Above High Threshold (test code = 2571-8) 198 mg/dl <150 LDL-CHOLESTEROL; Normal (test code = 72537-5) 87 {MG/DL TRISH} N Reference range: <100 Desirable range <100 mg/dL for primary prevention; <70 mg/dL for patients with CHD or diabetic patients with > or = 2 CHD risk factors. LDL-C is now calculated using the Ernie-Veronica calculation, which is a validated novel method providing better accuracy than the Friedewald equation in the estimation of LDL-C. Ernie SS et al. CASSIE. 2013;310(19): 1760-8189 (http ://education.IXcellerate.Glide/faq/XKI116) CHOL/HDLC RATIO (test code = CHOL/HDLC RATIO) 3.3 {CALC} <5.0 N NON HDL CHOLESTEROL (test code = NON HDL CHOLESTEROL) 117 {MG/DL C AL} <130 N For patients with diabetes plus 1 major ASCVD risk factor, treating to a non-HDL-C goal of <100 mg/dL (LDL-C of <70 mg/dL) is considered a therapeutic option. [facility][COUNT INCLUDES THE [facility]] MICROALBUMIN, RANDOM URINE (W/CREATININE) 2018-11-11 11:16:00* [...] a patient to bewithin a diagnostic category. [facility][COUNT INCLUDES THE [facility]] CMP W/KRAC6698-69-23 11:16:00* Test Item Value Reference Range Interpretation [...] is approximately 13% higher for peopleidentified as -Ethiopian. eGFR NON- (test code = eGFR NON-LISHA N NICARAGUAN) 78 {ML/MIN/1.7} > OR = 60 N [...] N BILIRUBIN, TOTAL; Normal (test code = 77401-8) 0.7 mg/dl 0.2-1.2 N ALKALINE PHSPHATASE (test code = ALKALINE PHSPHATASE) 73 u/l 40-115 N AST; Normal (test code = 1916-6) 25 u/l 10-35 N ALT; Normal (test code = 1742-6) 31 u/l 9-46 N [facility][COUNT INCLUDES THE [facility]] CBC (INCLUDES DIFF/PLT)2018-11-11 11:16:00* Test Item Value Reference Range Interpretation Comments WHITE BLOOD CELL COUNT (test code = WHITE BLOOD CELL COUNT) 7.6 {Thousand/u} 3.8-10.8 N RED BLOOD CELL COUNT (test code = RED BLOOD CELL COUNT) 5.07 {Million/uL} 4.20-5.80 N HEMAGLOBIN; Normal (test code = 24224-7) 15.6 g/dl 13.2-17.1 N HEMATOCRIT; Normal (test code = 4544-3) 45.3 % 38.5-50.0 N MCV; Normal (test code = 787-2) 89.3 fL 80.0-100.0 N MCHC; Normal (test code = 59298-1) 34.4 g/dl 32.0-36.0 N RDW; Normal (test code = 788-0) 13.8 % 11.0-15.0 N PLATELET COUNT; Normal (test code = 777-3) 211 {Thousand/u} 140-400 N MPV; Normal (test code = 02600-1) 11.8 fL 7.5-12.5 N ABSOLUTE NEUTROPHILS (test code = ABSOLUTE NEUTROPHILS) 4628 {cells/uL} 6951-3923 N ABSOLUTE LYMPHOCYTES (test code = ABSOLUTE [...] % N MONOCYTES; Normal (test code = 73649-8) 9.0 % N EOSINOPHILS; Normal (test code = 70733-3) 1.2 % N BASOPHILS; Normal (test code = 69630-0) 0.7 % N [facility][COUNT INCLUDES THE [facility]] TSH, 3RD GENERATION W/REFLEX TO FT4 2018-11-11 11:16:00* Test Item Value Reference Range Interpretation Comments TSH, 3RD GENERATION W/REFLEX TO FT4 (kareen t code = TSH, 3RD GENERATION W/REFLEX TO FT4) 1.14 {MIU/L} 0.40-4.50 N [facility][O] Hemoglobin A1c (in office)2018-10-30 18:07:00 * Test Item Value Reference Range Interpretation Comments HEMOGLOBIN A1c (test code = 4548-4) 8.2 [facility] ([facility] of Care In Office)2018-10-30 18:06:00* Test Item Value Reference Range Interpretation Comments Glucose POC Lifescan (test code = Glucose POC Lifescan) 152 [facility] PhysiciansFOOT RIGHT AP IYK5090-47-39 09:49:00 [facility] [address] [address] Patient Name: HANG BURKS MR #: [id number] : Age/Sex: 48/M Req #: [id number] Adm Physician: Ordered by: DREW ONEAL DPSarah Report #: [id number] Location: OR Room/Bed: Procedure: [id number] DX/FOOT RIGHT AP LAT Exam Date: 10/25/18 [...] COPY TO: Roshan ONEAL DPM CHEST 2 VWQDG1195-52-96 09:54:00 [address] [address] Patient Name: HANG BURKS MR #: [id number] : 1970 Age/Sex: 48/M Req #: [id number] Adm Physician: Ordered by: DREW ONEAL DPM Report #: [id number] Location: OR Room/Bed: Procedure: [id number] DX/CHEST 2 VIEWS Exam Date: Exam Time: [...] (test code = Glucose POC Lifescan) 194 [facility][O] Hemoglobin A1c (in office)2018-05-31 14:17:00 * Test Item Value Reference Range Interpretation Comments HEMOGLOBIN A1c (test code = 4548-4) 7.7 [facility]iciansPositive Retinal Eye Exam (Diabetic)2018-04-18 06:00:00* Test Item Value Reference Range Interpretation Comments Positive Diabetic Eye Screening (test code = Positive Diabetic Eye Screening) 72Jzj0737 A [facility] Dergpwv9228-62-67 16:00:00* Test Item Value Reference Range Interpretation Comments Bedside Glucose (test code = 53784-7) 109 70-120 Meter ID: [id number] [facility] 2018-03-13 07:15:00* Test Item Value Reference Range Interpretation Comments Sodium Level (test code = 2951-2) 134 136-145 L [facility] ShorelinePotassium Aosdb3070-92-89 07:15:00* Test Item Value Reference Range Interpretation Comments Potassium Level (test code = 2823-3) 3.7 3.5-5.1 [facility] ShorelineChloride Sruis0957-07-38 07:15:00* Test Item Value Reference Range Interpretation Comments Chloride Level (test code = 2075-0) 99 98-107 [facility] ShorelineCarbon Dioxide Brmvu1092-55-13 07:15:00* Test Item Value Reference Range Interpretation Comments Carbon Dioxide Level (test code = 2028-9) 26 22-29 [facility] ShorelineAnion Roh7430-38-24 07:15:00* Test Item Value Reference Range Interpretation Comments Anion Gap (test code = 67249-6) 12.7 8-16 [facility] ShorelineBlood Urea Zwaqtylt3311-55-04 07:15:00* Test Item Value Reference Range Interpretation Comments Blood Urea Nitrogen (test code = 3094-0) 10 7-26 [facility] ShorelineCreatinine2019-01-07 07:15:00* Test Item Value Reference Range Interpretation Comments Creatinine (test code = 2160-0) 0.93 0.72-1.25 [facility] ShorelineBUN/Creatinine Vvinv4947-02-76 07:15:00* Test Item Value Reference Range Interpretation Comments BUN/Creatinine Ratio (test code = 3097-3) 11 6-25 [facility] ShorelineEstimat Glomerular Filtration Rate 2018-03-13 07:15:00* Test Item Value Reference Range Interpretation Comments Estimat Glomerular Filtration Rate (test code = 106298705) > 60 >60 Ranges were taken from the National Kidney Disease Education Program and the [facility] Kidney Foundation literature.Reference ranges:60 or greater: Cipdqr03-26 ( for 3 consecutive months): Chronic kidney disease 15 or less: Kidney failureCHRISTUS Spohn Hospital [facility]i – ShorelineGlucose Jswic8419-87-01 07:15:00* Test Item Value Reference Range Interpretation Comments Glucose Level (test code = IZE0301) 118 74-118 [facility] ShorelineCalcium Jjrkd5727-95-18 07:15:00* Test Item Value Reference Range Interpretation Comments Calcium Level (test code = 63097-3) 9.0 8.4-10.2 [facility] ShorelineTotal Zevkefszc8531-27-17 05:57:00* Test Item Value Reference Range Interpretation Comments Total Bilirubin (test code = 1975-2) 0.7 0.2-1.2 [facility] ShorelineDirect Xyifskeiu6435-70-12 05:57:00* Test Item Value Reference Range Interpretation Comments Direct Bilirubin (test code = 26178-8) 0.4 0.0-0.5 [facility] ShorelineAspartate Amino Transf (AST/SGOT) 2018-03-13 05:57:00* Test Item Value Reference Range Interpretation Comments Aspartate Amino Transf (AST/SGOT) (test code = Aspartate Amino Transf (AST/SGOT)) 31 5-34 [facility] ShorelineAlanine Aminotransferase (ALT/SGPT) 2018-03-13 05:57:00* Test Item Value Reference Range Interpretation Comments Alanine Aminotransferase (ALT/SGPT) (test code = 1742-6) 83 0-55 H [facility] ShorelineTotal Czzbtnk5719-83-42 05:57:00* Test Item Value Reference Range Interpretation Comments Total Protein (test code = 2885-2) 7.3 6.5-8.1 [facility] ShorelineAlbumin2019-01-07 05:57:00* Test Item Value Reference Range Interpretation Comments Albumin (test code = 1751-7) 3.2 3.5-5.0 L [facility] ShorelineAlkaline Pntclxmbolo6732-11-18 05:57:00* Test Item Value Reference Range Interpretation Comments Alkaline Phosphatase (test code = 6768-6) 98 40-150 [facility] ShorelineMagnesium Yanlq3070-59-31 05:14:00* Test Item Value Reference Range Interpretation Comments Magnesium Level (test code = 13377-9) 2.0 1.3-2.1 [facility] ShorelineWhite Blood Mryyx8190-77-41 04:42:00* Test Item Value Reference Range Interpretation Comments White Blood Count (test code = 6690-2) 7.51 4.8-10.8 [facility] ShorelineRed Blood Jlwud0533-38-07 04:42:00* Test Item Value Reference Range Interpretation Comments Red Blood Count (test code = 789-8) 5.69 4.3-5.7 [facility] ShorelineHemoglobin2019-01-06 04:42:00* Test Item Value Reference Range Interpretation Comments Hemoglobin (test code = 68702-6) 13.9 14.0-18.0 L [facility] ShorelineHematocrit2019-01-06 04:42:00* Test Item Value Reference Range Interpretation Comments Hematocrit (test code = 4544-3) 44.1 38.2-49.6 [facility] ShorelineMean Corpuscular Tafaao3627-88-77 04:42:00* Test Item Value Reference Range Interpretation Comments Mean Corpuscular Volume (test code = 787-2) 77.5 81-99 L [facility] ShorelineMean Corpuscular Hwqfgntskq7665-99-88 04:42:00* Test Item Value Reference Range Interpretation Comments Mean Corpuscular Hemoglobin (test code = 785-6) 24.4 28-32 L [facility] ShorelineMean Corpuscular Hemoglobin Concent 2018-03-12 04:42:00* Test Item Value Reference Range Interpretation Comments Mean Corpuscular Hemoglobin Concent (test code = 786-4) 31.5 31-35 [facility] ShorelineRed Cell Distribution Gdktd9305-64-02 04:42:00* Test Item Value Reference Range Interpretation Comments Red Cell Distribution Width (test code = 48783-2) 19.7 11.7 -14.4 H [facility] ShorelinePlatelet Nrvvi8949-91-04 04:42:00* Test Item Value Reference Range Interpretation Comments Platelet Count (test code = 777-3) 224 140-360 [facility] ShorelineNeutrophils (%) (Auto)2018-03-12 04:42:00 * Test Item Value Reference Range Interpretation Comments Neutrophils (%) (Auto) (test code = 49099-2) 44.4 38.7-80.0 [facility] ShorelineLymphocytes (%) (Auto)2018-03-12 04:42:00 * Test Item Value Reference Range Interpretation Comments Lymphocytes (%) (Auto) (test code = 736-9) 39.5 18.0-39.1 H [facility] ShorelineMonocytes (%) (Auto)2018-03-12 04:42:00* Test Item Value Reference Range Interpretation Comments Monocytes (%) (Auto) (test code = 5905-5) 13.7 4.4-11.3 H [facility] ShorelineEosinophils (%) (Auto)2018-03-12 04:42:00 * Test Item Value Reference Range Interpretation Comments Eosinophils (%) (Auto) (test code = 713-8) 1.2 0.0-6.0 [facility] ShorelineBasophils (%) (Auto)2018-03-12 04:42:00* Test Item Value Reference Range Interpretation Comments Basophils (%) (Auto) (test code = 706-2) 0.8 0.0-1.0 [facility] ShorelineIM GRANULOCYTES %2018-03-12 04:42:00* Test Item Value Reference Range Interpretation Comments IM GRANULOCYTES % (test code = IM GRANULOCYTES %) 0.4 0.0- 1.0 [facility] ShorelineNeutrophils # (Auto)2018-03-12 04:42:00* Test Item Value Reference Range Interpretation Comments Neutrophils # (Auto) (test code = 751-8) 3.3 2.1-6.9 [facility] ShorelineLymphocytes # (Auto)2018-03-12 04:42:00* Test Item Value Reference Range Interpretation Comments Lymphocytes # (Auto) (test code = 29961-0) 3.0 1.0-3.2 [facility] ShorelineMonocytes # (Auto)2018-03-12 04:42:00* Test Item Value Reference Range Interpretation Comments Monocytes # (Auto) (test code = 742-7) 1.0 0.2-0.8 H [facility] ShorelineEosinophils # (Auto)2018-03-12 04:42:00* Test Item Value Reference Range Interpretation Comments Eosinophils # (Auto) (test code = 711-2) 0.1 0.0-0.4 [facility] ShorelineBasophils # (Auto)2018-03-12 04:42:00* Test Item Value Reference Range Interpretation Comments Basophils # (Auto) (test code = 704-7) 0.1 0.0-0.1 [facility] ShorelineAbsolute Immature Granulocyte (auto 2018-03-12 04:42:00* Test Item Value Reference Range Interpretation Comments Absolute Immature Granulocyte (auto (kareen t code = Absolute Immature Granulocyte (auto) 0.03 0-0.1 [facility] ShorelineVancomycin Level Cvrhqq1466-41-70 21:03:00* Test Item Value Reference Range Interpretation Comments Vancomycin Level Trough (test code = 4092-3) 11.5 5.0-10.0 Results called to ERLIN MCDANIEL/HENRY at 2101 on 03/11/18 by Víctor Nunez. AYUSH StoutCHRISTUS Spohn Hospital [facility] – ShorelineBlood Ekzgmyr0742-98-27 16:04:00* Test Item Value Reference Range Interpretation Comments Blood Culture (test code = 03932105) NO GROWTH AFTER 5 DAYS, FINAL REPORT [facility] ShorelineAnti-Mitochondrial Fglfkmsq7182-48-02 13:07:00* Test Item Value Reference Range Interpretation Comments Anti-Mitochondrial Antibody (test code = 08895-0) 2.2 0.0- 20.0 Negative 0.0 - 20.0 Equivocal 20.1 - 24.9 Positive > 24.9Mitochondrial (M2) Antibodies are found in 90-96% ofpatients with primary bi liary cirrhosis.Performed at: [facility] [id number] Director: Pedro Darby MD, Phone: [phone] [facility]ohn [facility]i – ShorelineAnti-Smooth Muscle Edoksdix3980-29-01 13:07:00* Test Item Value Reference Range Interpretation Comments Anti-Smooth Muscle Antibody (test code = 26421-5) 9 0-19 Negative 0 - 19 Weak positi ve 20 - 30 Moderate to strong positive >30 Actin Antibodies are found in 52-85% of patients with autoimmune hepatitis or chronic active hepatitis and in 22% of patients with primary biliary cirrhosis. [facility] ShorelineGlobulin2019-01-03 06:43:00* Test Item Value Reference Range Interpretation Comments Globulin (test code = 15163-6) 4.5 2.3-3.5 H [facility] ShorelineAlbumin/Globulin Coqxc1032-63-52 06:43:00 * Test Item Value Reference Range Interpretation Comments Albumin/Globulin Ratio (test code = 1759-0) 0.7 0.8-2.0 L [facility] ShorelineHepatibaptist [facility] A IgM Ebrxwwdr4229-26-73 06:26:00* Test Item Value Reference Range Interpretation Comments Hepatitis A IgM Antibody (test code = 39597-2) Negative Negativ e [facility] B Surface Bawxehu8951-70-45 06:26:00* Test Item Value Reference Range Interpretation Comments Hepatitis B Surface Antigen (test code = 5196-1) Negative Negat renard [facility] B Core IgM Xurnnbav7369-77-43 06:26:00* Test Item Value Reference Range Interpretation Comments Hepatitis B Core IgM Antibody (test code = 13568-6) Negative Ne gative [facility] ShorelineHepatibaptist memorial hospital[facility] C Vxggwntw7641-29-90 06:26:00* Test Item Value Reference Range Interpretation Comments Hepatitis C Antibody (test code = 65320-7) <0.1 0.0-0.9 Negative: < 0.8 Indeterminate: 0.8 - 0.9 Positive: > 0.9 The CDC recommends that a positive HCV antibody result be followed up with a HCV Nucleic Acid Amplification test (563499).Performed at: - [facility] [address] [place] [address] [id number] Director: Harsha Penaloza MD, Phone: [phone] [facility]ohn Hospital [facility]i – ShorelineAnti-Nuclear Antibody Screen 2018-03-08 11:42:00* Test Item Value Reference Range Interpretation Comments Anti-Nuclear Antibody Screen (test code = 5048-4) Negative . Negative <1:80 Borderline 1:80 Positive > 1:80Performed at: [address] [id number] Director: Harsha Penaloza MD, Phone: [phone] Spohn Hospital [facility] Christi – ShorelineUS RENAL RETROPERITONEAL KNBO3501-50-12 15:44:00 [address] [address] Patient Name: HANG BURKS MR #: [id number] : 1970 Age/Sex: 48/M Req #: [id number] Adm Physician: KASANDRA SUGGS MD Ordered by: MATTY JHA MD Report #: [id number] Location: [facility] Room/Bed: [facility] Procedure: [id number] US/US RE NAL RETROPERITONEAL COMP Exam Date: [...] 1548 Transcribed By: JAYLON NOWAK on 03/07/18 1548 COPY TO: MATTY JHA MD Urine Osmolality 2018-03-07 15:39:00* Test Item Value Reference Range Interpretation Comments Urine Osmolality (test code = 2695-5) 735 . 24 hr : 300 - 900 Random: 50 - 1400 After 12hr fluid restriction: >850Performed at: - [facility] [address] [id number] Director: Harsha Penaloza MD, Phone: [phone] Spohn Hospital [facility] Christi – ShorelineUrine Random Total Cwborii9680-74-11 12:00:00* Test Item Value Reference Range Interpretation Comments Urine Random Total Protein (test code = 2888-6) 25.4 1-14 H [facility] ShorelineUrine Ixnzjumhlx8004-52-83 12:00:00* Test Item Value Reference Range Interpretation Comments Urine Creatinine (test code = 2161-8) 105.21 63-166 [facility] ShorelineCreatine Kinase DN7230-70-82 12:38:00* Test Item Value Reference Range Interpretation Comments Creatine Kinase MB (test code = 17865-1) 0.50 0-5.0 [facility] ShorelineTroponin L6967-94-15 12:38:00* Test Item Value Reference Range Interpretation Comments Troponin I (test code = IYS0527) 0.001 0-0.300 [facility] ShorelineCreatine Dpmgle4365-92-28 12:31:00* Test Item Value Reference Range Interpretation Comments Creatine Kinase (test code = 2157-6) 162 30-200 [facility] ShorelineUrine Random Zsngdl4711-37-12 09:37:00* Test Item Value Reference Range Interpretation Comments Urine Random Sodium (test code = 2955-3) 25 [facility] Centererum Gnesfnsruf2842-71-27 09:26:00* Test Item Value Reference Range Interpretation Comments Serum Osmolality (test code = 31046-5) 260 278-305 L [facility] ShorelineLactic Acid Pcrtr6651-23-73 06:44:00* Test Item Value Reference Range Interpretation Comments Lactic Acid Level (test code = Lactic Acid Level) 11.1 4.5- 19.8 [facility] ShorelinePhosphorus Wpydd7172-94-88 05:08:00* Test Item Value Reference Range Interpretation Comments Phosphorus Level (test code = JIA6856) 2.9 2.3-4.7 [facility] ShorelineCHEST XRAY LINE VHEBWSNFF7919-32-60 20:11:00 [facility] [address] [place] [address] Patient Name: HANG BURKS MR #: [id number] : 1970 Age/Sex: 48/M Req #: [id number] Adm Physician: KASANDRA SUGGS MD Ordered by: DEBRA HERNANDEZ MD Report #: [id number] Location: [facility] Room/Bed: [address] [address] Procedure: [id number] DX/ CHEST XRAY LINE PLACEMENT Exam Date: 03/05/18 Exam T marianela: 1957 REPORT STATUS: Signed EXAM: CHEST XRAY LINE [...] TO: DEBRA HERNANDEZ MD Differential Total Cells Egsubbj0739-63-21 19:45:00* Test Item Value Reference Range Interpretation Comments Differential Total Cells Counted (test code = Differen tial Total Cells Counted) 100 [facility] ShorelineNeutrophils % (Manual)2018-03-05 19:45:00 * Test Item Value Reference Range Interpretation Comments Neutrophils % (Manual) (test code = 74574-2) 86 40-74 H [facility] ShorelineBand Neutrophils %2018-03-05 19:45:00* Test Item Value Reference Range Interpretation Comments Band Neutrophils % (test code = 764-1) 5 [facility] ShorelineLymphocytes % (Manual)2018-03-05 19:45:00 * Test Item Value Reference Range Interpretation Comments Lymphocytes % (Manual) (test code = 737-7) 5 19-48 L [facility] ShorelineMonocytes % (Manual)2018-03-05 19:45:00* Test Item Value Reference Range Interpretation Comments Monocytes % (Manual) (test code = 744-3) 4 3.4-9.0 [facility] ShorelinePlatelet Chjyrtpi8077-79-19 19:45:00* Test Item Value Reference Range Interpretation Comments Platelet Estimate (test code = 51443-2) ADEQUATE [facility] ShorelinePlatelet Morphology Rrmnycz3775-86-32 19:45:00* Test Item Value Reference Range Interpretation Comments Platelet Morphology Comment (test code = 13508-9) FEW GIANT [facility] ShorelineMicrocytosis2018-12-30 19:45:00* Test Item Value Reference Range Interpretation Comments Microcytosis (test code = 741-9) SLIGHT [facility] ShorelineArterial Blood nB2907-69-44 19:22:00* Test Item Value Reference Range Interpretation Comments Arterial Blood pH (test code = 2744-1) 7.38 7.31-7.41 [facility] ShorelineArterial Blood Partial Pressure CO2 2018-03-05 19:22:00* Test Item Value Reference Range Interpretation Comments Arterial Blood Partial Pressure CO2 (test code = 2019-8) 32 41-51 L [facility] ShorelineArterial Blood Partial Pressure O2 2018-03-05 19:22:00* Test Item Value Reference Range Interpretation Comments Arterial Blood Partial Pressure O2 (test code = 2018-8) 80 80-105 [facility] ShorelineArterial Blood AVW38085-09-72 19:22:00* Test Item Value Reference Range Interpretation Comments Arterial Blood HCO3 (test code = 1960-4) 19 23-28 L [facility] ShorelineArterial Blood Base Vrhdpb1225-62-80 19:22:00* Test Item Value Reference Range Interpretation Comments Arterial Blood Base Excess (test code = 1925-7) -6.0 -2-3 L [facility] ShorelineArterial Blood Oxygen Saturation 2018-03-05 19:22:00* Test Item Value Reference Range Interpretation Comments Arterial Blood Oxygen Saturation (test code = 2708-6) 96.0 95-98 [facility] ShorelineFiO22018-12-30 19:22:00* Test Item Value Reference Range Interpretation Comments FiO2 (test code = FiO2) 21 PT ON RA SATTING 96%[facility]LVIS W 2018-03-05 18:43:00 [facility] [address] [address] Patient Name: HANG BURKS MR #: [id number] : 1970 Age/Sex: 48/M Req #: [id number] Adm Physician: Ordered by: CIRA CORNEJO MD Report #: [id number] Location: ER Room/Bed: Procedure: [id number] CT/CT ABDOMEN/PELVIS W Exam Date: 03/05/18 Exam [...] Level (test code = 1798-8) 113 25-125 [facility] ShorelineLipase2018-12-30 18:38:00* Test Item Value Reference Range Interpretation Comments Lipase (test code = 3040-3) 118 8-78 H [facility] ShorelineLOWER LEG BNACC5180-49-94 18:01:00 [place] [address] Patient Name: HANG BURKS MR #: [id number] : 1970 Age/Sex: 48/M Req #: [id number] [facility] Physician: Ordered by: CIRA CORNEJO MD Report #: [id number] Location: ER Room/Bed: Procedure: [id number] DX/LOW ER LEG RIGHT Exam Date: 03/05/18 Exam Time: 1723 REPORT STATUS: Signed Tibia fibula right CPT code: 98930 Indication: Right ankle cellulitis, fever T echnique: [...] 03/05/181803 COPY TO: CIRA CORNEJO MD Urine DDS2154-89-64 17:24:00* Test Item Value Reference Range Interpretation Comments Urine WBC (test code = 5821-4) 0-5 0-5 [facility] [id number] 17:24:00* Test Item Value Reference Range Interpretation Comments Urine RBC (test code = 51747-0) 0-5 0-5 [facility]line[facility] Iqskhdoy8410-44-95 17:24:00* Test Item Value Reference Range Interpretation Comments Urine Bacteria (test code = 64773-7) RARE NONE [facility]line[facility] Epithelial Qxxho5208-49-93 17:24:00 * Test Item Value Reference Range Interpretation Comments Urine Epithelial Cells (test code = 82474-7) RARE NONE [facility] Pxmhf3808-77-08 17:03:00* Test Item Value Reference Range Interpretation Comments Urine Color (test code = 5778-6) YELLOW YELLOW [facility]line[facility] Yugqnjj4727-38-54 17:03:00* Test Item Value Reference Range Interpretation Comments Urine Clarity (test code = 08318-4) CLEAR CLEAR [facility] Specific Svlfrkn5032-46-71 17:03:00 * Test Item Value Reference Range Interpretation Comments Urine Specific Alden (test code = 5811-5) 1.010 1.010-1.02 5 [facility] [id number] 17:03:00* Test Item Value Reference Range Interpretation Comments Urine pH (test code = 22909-9) 6 5-7 [facility] Leukocyte Dvsmyhhx2369-71-77 17:03:00* Test Item Value Reference Range Interpretation Comments Urine Leukocyte Esterase (test code = 5799-2) NEGATIVE NEGATIVE [facility] Mkbugvf1198-91-84 17:03:00* Test Item Value Reference Range Interpretation Comments Urine Nitrite (test code = 26741-8) NEGATIVE NEGATIVE [facility] Jrchuup3098-02-51 17:03:00* Test Item Value Reference Range Interpretation Comments Urine Protein (test code = 5804-0) NEGATIVE NEGATIVE [facility] Glucose (UA)2018-03-05 17:03:00* Test Item Value Reference Range Interpretation Comments Urine Glucose (UA) (test code = 2349-9) 3+ NEGATIVE H [facility] Dxyxvha7950-08-64 17:03:00* Test Item Value Reference Range Interpretation Comments Urine Ketones (test code = 79831-4) TRACE NEGATIVE H [facility] Tatkfxfqbpyv4975-94-21 17:03:00* Test Item Value Reference Range Interpretation Comments Urine Urobilinogen (test code = 94307-9) 0.2 0.2-1 [facility] Wwcxgjmlz8499-23-87 17:03:00* Test Item Value Reference Range Interpretation Comments Urine Bilirubin (test code = 1978-6) 1+ NEGATIVE H Confirmatory test currently unavailable. False positive results may occur.[facility]line[facility] Wwmlt0931-20-95 17:03:00* Test Item Value Reference Range Interpretation Comments Urine Blood (test code = 27418-5) NEGATIVE NEGATIVE [facility]lineCHEST 2 LYZTJ7804-54-62 16:42:00 [facility] [address] [address] Patient Name: HANG BURKS MR #: [id number] : 1970 Age/Sex: 48/M Req #: [id number] Adm Physician: Ordered by: CIRA CORNEJO MD Report #: [id number] Location: ER Room/Bed: Procedure: [id number] DX/JUAN ST 2 VIEWS Exam Date: 03/05/18 [...] 42 COPY TO: CIRA CORNEJO MD Bedside Wrulaxd5364-90-61 11:54:00* Test Item Value Reference Range Interpretation Comments Bedside Glucose (test code = 80500-5) 258 70-120 H Meter ID: [id number] [facility]anoVancomycin Level Hqmrbs6090-26-31 11:17:00* Test Item Value Reference Range Interpretation Comments Vancomycin Level Trough (test code = 4092-3) 13.9 5.0-10.0 HH Results called to LONG MOSS at 1117 on 02/17/18 by EDMUNDO DONALD. RB OK .[facility]lineBlood Qwwgwla1455-08-95 10:35:00* Test Item Value Reference Range Interpretation Comments Blood Culture (test code = 87827840) NO GROWTH AFTER [address] [facility] Gxhpx7440-00-47 06:31:00* Test Item Value Reference Range Interpretation Comments Sodium Level (test code = 2951-2) 133 136-145 L [facility]linePotassium Lnann8235-16-96 06:31:00* Test Item Value Reference Range Interpretation Comments Potassium Level (test code = 2823-3) 3.7 3.5-5.1 [facility]lineChloride Vyssd8074-68-94 06:31:00* Test Item Value Reference Range Interpretation Comments Chloride Level (test code = 2075-0) 100 98-107 [facility] ShorelineCarbon Dioxide Kqekd2245-27-34 06:31:00* Test Item Value Reference Range Interpretation Comments Carbon Dioxide Level (test code = 2028-9) 21 22-29 L [facility] ShorelineAnion Icq0072-98-23 06:31:00* Test Item Value Reference Range Interpretation Comments Anion Gap (test code = 52974-4) 15.7 8-16 [facility]lineBlood Urea Ptjuduqa3460-87-59 06:31:00* Test Item Value Reference Range Interpretation Comments Blood Urea Nitrogen (test code = 3094-0) 10 7- [facility] ShorelineCreatinine2018-12-13 06:31:00* Test Item Value Reference Range Interpretation Comments Creatinine (test code = 2160-0) 1.11 0.72-1.25 [facility]lineBUN/Creatinine Kxpgn4576-00-43 06:31:00* Test Item Value Reference Range Interpretation Comments BUN/Creatinine Ratio (test code = 3097-3) 9 08-29 [facility] ShorelineEstimat Glomerular Filtration Rate 2018-02-16 06:31:00* Test Item Value Reference Range Interpretation Comments Estimat Glomerular Filtration Rate (test code = 664189345) > 60 >60 Ranges were taken from the National Kidney Disease Education Program and the [facility] Kidney Foundation literature.Reference ranges:60 or greater: Kqleyj27-35 ( for 3 consecutive months): Chronic kidney disease 15 or less: Kidney failureCHRISTUS Spohn Hospital [facility] Christi – ShorelineGlucose Fnkua8493-16-30 06:31:00* Test Item Value Reference Range Interpretation Comments Glucose Level (test code = NVC3113) 89 74-118 [facility] ShorelineCalcium Egxjd0461-07-77 06:31:00* Test Item Value Reference Range Interpretation Comments Calcium Level (test code = 47121-8) 9.3 8.4-10.2 [facility] ShorelineWhite Blood Tyyhi6786-37-53 06:21:00* Test Item Value Reference Range Interpretation Comments White Blood Count (test code = 6690-2) 7.62 4.8-10.8 [facility] ShorelineRed Blood Umwzr1817-11-81 06:21:00* Test Item Value Reference Range Interpretation Comments Red Blood Count (test code = 789-8) 5.97 4.3-5.7 H [facility] ShorelineHemoglobin2018-12-13 06:21:00* Test Item Value Reference Range Interpretation Comments Hemoglobin (test code = 88125-1) 14.3 14.0-18.0 [facility] ShorelineHematocrit2018-12-13 06:21:00* Test Item Value Reference Range Interpretation Comments Hematocrit (test code = 4544-3) 45.9 38.2-49.6 [facility] ShorelineMean Corpuscular Xzdbcx4166-36-63 06:21:00* Test Item Value Reference Range Interpretation Comments Mean Corpuscular Volume (test code = 787-2) 76.9 81-99 L [facility] ShorelineMean Corpuscular Qxyzcasjeg0948-08-73 06:21:00* Test Item Value Reference Range Interpretation Comments Mean Corpuscular Hemoglobin (test code = 785-6) 24.0 28-32 L [facility] Corp[facility] Hemoglobin Concent 2018-02-16 06:21:00* Test Item Value Reference Range Interpretation Comments Mean Corpuscular Hemoglobin Concent (test code = 786-4) 31.2 31-35 [facility]lineRed Cell Distribution Zgbyd1099-45-29 06:21:00* Test Item Value Reference Range Interpretation Comments Red Cell Distribution Width (test code = 77500-1) 18.7 11.7 -14.4 H [facility] ShorelinePlatelet Nuedm5514-37-35 06:21:00* Test Item Value Reference Range Interpretation Comments Platelet Count (test code = 777-3) 204 140-360 [facility] ShorelineNeutrophils (%) (Auto)2018-02-16 06:21:00 * Test Item Value Reference Range Interpretation Comments Neutrophils (%) (Auto) (test code = 57976-1) 67.9 38.7-80.0 [facility] ShorelineLymphocytes (%) (Auto)2018-02-16 06:21:00 * Test Item Value Reference Range Interpretation Comments Lymphocytes (%) (Auto) (test code = 736-9) 15.6 18.0-39.1 L [facility] ShorelineMonocytes (%) (Auto)2018-02-16 06:21:00* Test Item Value Reference Range Interpretation Comments Monocytes (%) (Auto) (test code = 5905-5) 12.2 4.4-11.3 H [facility]lineEosinophils (%) (Auto)2018-02-16 06:21:00 * Test Item Value Reference Range Interpretation Comments Eosinophils (%) (Auto) (test code = 713-8) 3.4 0.0-6.0 [facility]lineBasophils (%) (Auto)2018-02-16 06:21:00* Test Item Value Reference Range Interpretation Comments Basophils (%) (Auto) (test code = 706-2) 0.5 0.0-1.0 [facility] ShorelineIM GRANULOCYTES %2018-02-16 06:21:00* Test Item Value Reference Range Interpretation Comments IM GRANULOCYTES % (test code = IM GRANULOCYTES %) 0.4 0.0- 1.0 [facility] ShorelineNeutrophils # (Auto)2018-02-16 06:21:00* Test Item Value Reference Range Interpretation Comments Neutrophils # (Auto) (test code = 751-8) 5.2 2.1-6.9 [facility] ShorelineLymphocytes # (Auto)2018-02-16 06:21:00* Test Item Value Reference Range Interpretation Comments Lymphocytes # (Auto) (test code = 25032-7) 1.2 1.0-3.2 [facility]lineMonocytes # (Auto)2018-02-16 06:21:00* Test Item Value Reference Range Interpretation Comments Monocytes # (Auto) (test code = 742-7) 0.9 0.2-0.8 H [facility]lineEosinophils # (Auto)2018-02-16 06:21:00* Test Item Value Reference Range Interpretation Comments Eosinophils # (Auto) (test code = 711-2) 0.3 0.0-0.4 [facility]lineBasophils # (Auto)2018-02-16 06:21:00* Test Item Value Reference Range Interpretation Comments Basophils # (Auto) (test code = 704-7) 0.0 0.0-0.1 [facility] ShorelineAbsolute Immature Granulocyte (auto 2018-02-16 06:21:00* Test Item Value Reference Range Interpretation Comments Absolute Immature Granulocyte (auto (kareen t code = Absolute Immature Granulocyte (auto) 0.03 0-0.1 [facility]lineHepomona [facility] A IgM Hwrdxpmd9283-07-82 15:49:00* Test Item Value Reference Range Interpretation Comments Hepatitis A IgM Antibody (test code = 00470-5) Negative Negativ e [facility] B Surface Iuzeche1025-36-54 15:49:00* Test Item Value Reference Range Interpretation Comments Hepatitis B Surface Antigen (test code = 5196-1) Negative Negat renard [facility] B Core IgM Dmkzjyas8083-45-32 15:49:00* Test Item Value Reference Range Interpretation Comments Hepatitis B Core IgM Antibody (test code = 62754-0) Negative Ne gative [facility] ShorelineLactic Acid Erntw6660-10-42 15:29:00* Test Item Value Reference Range Interpretation Comments Lactic Acid Level (test code = Lactic Acid Level) 29.2 4.5- 19.8 HH Results called to ravinder miller at 1527 on 02/14/18 by Douglas Sinclair. RB OK. [facility] ShorelineUS NEUXJUTPIDN4206-34-86 14:11:00 [facility] [address] [place] [address] Patient Name: HANG BURKS MR #: [id number] : 1970 Age/Sex: 47/M Req #: [id number] Adm Physician: KASANDRA SUGGS MD Ordered by: ANTWAN PHIPPS MD Report #: [id number] Location: [facility] Room/Bed: [address] [address] Procedure: [id number] U S/US GALLBLADDER Exam Date: Exam Time: REPORT STATUS: Signed EXAM: Right Upper [place] drsteve Ultrasound INDICATION: Transaminitis COMPARISON: None. T ECHNIQUE: [...] GURROLA MD 12 Transcribed By: VIOLET on 02/14/18 141 COPY TO: ANTWAN PHIPPS MD LOWER LEG LNJSG8555-43-78 11:24:[address] [address] Patient Name: HANG BURKS MR #: [id number] : 1970 Age/Sex: 47/M Req #: [id number] Adm Physician: Ordered by: ANTWAN PHIPPS MD Report #: [id number] Location: ER Room/Bed: Procedure: [id number] DX /LOWER LEG RIGHT Exam Date: 02/14/18 [...] 11:25 AM Dictated By: BOBBY GURROLA MD 1125 Transcribed By: VIOLET on 02/14/18 1125 COPY TO: ANTWAN PHIPPS MD Total Izttcxheh3742-42-17 11:05:00* Test Item Value Reference Range Interpretation Comments Total Bilirubin (test code = 1975-2) 1.1 0.2-1.2 [facility] ShorelineAspartate Amino Transf (AST/SGOT) 2018-02-14 11:05:00* Test Item Value Reference Range Interpretation Comments Aspartate Amino Transf (AST/SGOT) (test code = Aspartate Amino Transf (AST/SGOT)) 185 5-34 H [facility] ShorelineAlanine Aminotransferase (ALT/SGPT) 2018-02-14 11:05:00* Test Item Value Reference Range Interpretation Comments Alanine Aminotransferase (ALT/SGPT) (test code = 1742-6) 113 0-55 H [facility] ShorelineTotal Ybiipaa9473-82-18 11:05:00* Test Item Value Reference Range Interpretation Comments Total Protein (test code = 2885-2) 8.9 6.5-8.1 H [facility] ShorelineAlbumin2018-12-11 11:05:00* Test Item Value Reference Range Interpretation Comments Albumin (test code = 1751-7) 3.8 3.5-5.0 [facility] ShorelineGlobulin2018-12-11 11:05:00* Test Item Value Reference Range Interpretation Comments Globulin (test code = 76569-4) 5.1 2.3-3.5 H [facility] ShorelineAlbumin/Globulin Dxmjf9883-55-66 11:05:00 * Test Item Value Reference Range Interpretation Comments Albumin/Globulin Ratio (test code = 1759-0) 0.7 0.8-2.0 L [facility] ShorelineAlkaline Uossdxpsvrv4601-35-40 11:05:00* Test Item Value Reference Range Interpretation Comments Alkaline Phosphatase (test code = 6768-6) 70 40-150 [facility] ShorelineUS Extremity lower venous Doppler Unilat [id number] 12:59:00EXAM: US RIGHT LOWER EXTREMITY VENOUS DOPPLERDATE: [...] 13:51Electronically Signed by: Bk Aguayo MD 02/08/1813:54FINAL REPORTUnGarfield [facility] Physicians[O] Influenza A and B, Rapid Method (In Office)2018-01-19 16:34:56* Test Item Value Reference Range Interpretation Comments INFLUENZA A & B Rapid (test code = INFLUENZA A & B Rapid) negative N [facility][O] Streptococcus Test Rapid (In Office)2018-01-19 16:34:35* Test Item Value Reference Range Interpretation Comments Group A Strep Screen; Abnormal (test code = 21448-1) positive A [facility]iciansGlucose (Point of Care In Office)2017-12-20 16:11:00* Test Item Value Reference Range Interpretation Comments Glucose POC Lifescan (test code = Glucose POC Lifescan) 147 [facility][O] Hemoglobin A1c (in office)2017-12-20 16:11:00 * Test Item Value Reference Range Interpretation Comments HEMOGLOBIN A1c (test code = 4548-4) 7.3 [facility]iciansGlucose ([facility] In Office)2017-09-19 16:28:00* Test Item Value Reference Range Interpretation Comments Glucose POC Lifescan (test code = Glucose POC Lifescan) 97 [facility][O] Hemoglobin A1c (in office)2017-09-19 16:28:00 * Test Item Value Reference Range Interpretation Comments HEMOGLOBIN A1c (test code = 4548-4) 7.4 [facility][COUNT INCLUDES THE [facility]] LIPID [id number] 07:55:00* Test Item Value Reference Range Interpretation Comments CHOLESTEROL, TOTAL; Normal (test code = 2093-3) 129 mg/dl <200 N HDL CHOLESTEROL; Below Low Threshold (test code = 2085-9) 36 mg/dl >40 TRIGLYCERIDES; Normal (test code = 2571-8) 125 mg/dl <150 N LDL-CHOLESTEROL; Normal (test code = 34781-2) 72 {MG/DL TRISH} N Reference range: <100 Desirable range <100 mg/dL for primary prevention; <70 mg/dL for patients with CHD or diabetic patients with > or = 2 CHD risk factors. LDL-C is now calculated using the Ernie-Martin calculation, which is a validated novel method providing better accuracy than the Friedewald equation in the estimation of LDL-C. Ernie SS et al. CASSIE. 2013;310(82): 1877-1562 (http ://education.Who Can Fix My Car/faq/JGJ258) CHOL/HDLC RATIO (test code = CHOL/HDLC RATIO) 3.6 {CALC} <5.0 N NON HDL CHOLESTEROL (test code = NON HDL CHOLESTEROL) 93 {MG/DL CA L} <130 N For patients with diabetes plus 1 major ASCVD risk factor, treating to a non-HDL-C goal of <100 mg/dL (LDL-C of <70 mg/dL) is considered a therapeutic option. [facility][COUNT INCLUDES THE [facility]] CMP W/VBLM3658-57-16 07:55:00* Test Item Value Reference Range Interpretation [...] NON- (test code = eGFR NON-LISHA N NICARAGUAN) 76 {ML/MIN/1.7} > OR = 60 N [...] N BILIRUBIN, TOTAL; Normal (test code = 97968-1) 0.6 mg/dl 0.2-1.2 N ALKALINE PHSPHATASE (test code = ALKALINE PHSPHATASE) 52 u/l 40-115 N AST; Normal (test code = 1916-6) 19 u/l 10-40 N ALT; Normal (test code = 1742-6) 18 u/l 9-46 N [facility][COUNT INCLUDES THE [facility]] MICROALBUMIN, RANDOM URINE (W/CREATININE) 2017-06-25 07:55:00* [...] a patient to bewithin a diagnostic category. [facility]iciansGlucose (Point of Care In Office)2017-06-20 16:04:00* Test Item Value Reference Range Interpretation Comments Glucose POC Lifescan (test code = Glucose POC Lifescan) 155 [facility][O] Hemoglobin A1c (in office)2017-06-20 16:04:00 * Test Item Value Reference Range Interpretation Comments HEMOGLOBIN A1c (test code = 4548-4) 7.4 [facility]iciansGlucose (Point [facility] In Office)2017-03-18 16:02:00* Test Item Value Reference Range Interpretation Comments Glucose POC Lifescan (test code = Glucose POC Lifescan) 109 [facility][O] Hemoglobin A1c (in office)2017-03-18 16:02:00 * Test Item Value Reference Range Interpretation Comments HEMOGLOBIN A1c (test code = 4548-4) 8.1 [facility]
[2019-11-10 14:50] LABS: BASOPHILS # (AUTO) 0.1 (0.0-0.1); BASOPHILS % 0.6 % (0.0-1.0); EOSINOPHILS # (AUTO) 0.1 (0.0-0.4); EOSINOPHILS % 0.6 % (0.0-6.0); HEMATOCRIT 46.2 % (38.2-49.6); HEMOGLOBIN 15.6 g/dL (14.0-18.0); LYMPHOCYTES # (AUTO) 1.9 (1.0-3.2); LYMPHOCYTES % 23.7 % (18.0-39.1); MEAN CORPUSCULAR HEMOGLOBIN 30.5 pg (28-32); MEAN CORPUSCULAR HGB CONC 33.8 g/dL (31-35); MEAN CORPUSCULAR VOLUME 90.2 fL (81-99); MONOCYTES # (AUTO) 0.7 (0.2-0.8); NEUTROPHILS # (AUTO) 5.4 (2.1-6.9); NEUTROPHILS % 65.7 % (38.7-80.0); PLATELET COUNT 221 x10e3/uL (140-360); RED BLOOD COUNT 5.12 x10e6/uL (4.3-5.7); RED CELL DISTRIBUTION WIDTH 13.8 % (11.7-14.4)
[2019-11-10 14:57] LABS: INR 0.94
[2019-11-10 15:01] LABS: ALANINE AMINOTRANSFERASE 26 IU/L (0-55); ALBUMIN 4.6 g/dL (3.5-5.0); ALBUMIN/GLOBULIN RATIO 1.3 (0.8-2.0); ALKALINE PHOSPHATASE 64 IU/L (40-150); ANION GAP 20.1 mmol/L (8-16); BLOOD UREA NITROGEN 13 mg/dL (7-26); BUN/CREATININE RATIO 11 (6-25); CALCIUM 9.9 mg/dL (8.4-10.2); CARBON DIOXIDE 21 mmol/L (22-29); CHLORIDE 101 mmol/L (98-107); CREATINE KINASE 73 IU/L (30-200); CREATININE, SERUM 1.18 mg/dL (0.72-1.25); EST GLOMERULAR FILTRATION RATE > 60 ML/MIN (60-); GLUCOSE 210 mg/dL (74-118); POTASSIUM 4.1 mmol/L (3.5-5.1); SODIUM 138 mmol/L (136-145)
--- NOTE | 2019-11-10 15:50 | Diagnostic Imaging Report ---
EXAMINATION: CHEST SINGLE (PORTABLE) INDICATION: Chest pain COMPARISON: Multiple prior chest x-ray examinations most recent dated 10/29/2019. FINDINGS: AP view TUBES and LINES: None. . LUNGS/PLEURA: Lungs are not well inflated. There is no evidence of pneumonia or pulmonary edema.. There is no pleural effusion or pneumothorax. HEART AND MEDIASTINUM: The cardiomediastinal silhouette is slightly prominent likely due to low lung volumes. BONES AND SOFT TISSUES: No acute osseous lesion. Soft tissues are unremarkable. UPPER ABDOMEN: No free air under the diaphragm. IMPRESSION: No acute thoracic abnormality. Signed by: Bert Galeano MD on 11/10/2019 3:47 PM
--- NOTE | 2019-11-10 16:20 | NUR ---
REPEAT CARDIAC ENZYMES DRAWN AT THIS TIME
[2019-11-10 16:51] LABS: CREATINE KINASE MB 1.2 ng/mL (0-5.0)
--- NOTE | 2019-11-10 16:56 | Emergency Department Note ---
History of Present Illnes History of Present Illness Chief Complaint: Chest Pain History of Present Illness This is a 49 year old male substernal cp radiating to back and neck. hx of pci with 3 cardiac stents. seen last wk for same and that's when 3rd stent placed. pt aaox4. ambulatory. states onset 4 days ago. Historian: Patient Arrival Mode: Car [employer] Driver Required: No Onset (how long ago): day(s) (4) Location: substernal CP Quality: sharp Radiation: Reports back, Reports neck Severity: moderate Onset quality: gradual Timing of current episode: intermittent Progression: resolved Chronicity: recurrent Context: Denies recent illness Relieving factors: none Exacerbating factors: none Associated symptoms: Reports denies other symptoms; Denies cough, Denies fever/chills, Denies shortness of breath Treatments prior to arrival: none Past Medical/Family History Physician Review I have reviewed the patient's past medical and family history. Any updates have been documented here. 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 Social History Smoking Cessation: Former smoker Counseling Performed: Yes Alcohol Use: None Any Illegal Drug Use: No TB Exposure/Symptoms: No Physically hurt or threatened: No Family History Family history of heart diseas: No Other Last Tetanus: NONE Any Pre-Existing Lines (PICC,: No Review of Systems Review of Systems Constitutional: Reports no symptoms EENTM: Reports no symptoms Cardiovascular: Reports as per HPI Respiratory: Reports no symptoms Gastrointestinal: Reports no symptoms Genitourinary: Reports no symptoms Musculoskeletal: Reports no symptoms Integumentary: Reports no symptoms Neurological: Reports no symptoms Psychological: Reports no symptoms Endocrine: Reports no symptoms Hematological/Lymphatic: Reports no symptoms Physical Exam Related Data Allergies: Coded Allergies: meperidine HCl (Verified Allergy, Intermediate, EXTREME VOMITING, 10/29/19) Triage Vital Signs Vital Signs Date Time Temp Pulse Resp B/P (MAP) Pulse Ox O2 Delivery O2 Flow Rate FiO2 11/10/19 14:24 97.6 90 16 141/99 100 Room Air Vital signs reviewed: Yes Physical Exam CONSTITUTIONAL Constitutional: Present well-developed, Present well-nourished HENT HENT: Present normocephalic, Present atraumatic, Present oropharynx clear/moist, Present nose normal HENT L/R: Present left ext ear normal, Present right ext ear normal EYES Eyes: Reports PERRL, Reports conjunctivae normal NECK Neck: Present ROM normal PULMONARY Pulmonary: Present effort normal, Present breath sounds normal CARDIOVASCULAR Cardiovascular: Present regular rhythm, Present heart sounds normal, Present capillary refill normal, Present normal rate, Present other (some reproducible tenderness left anterior chest wall) GASTROINTESTINAL Abdominal: Present soft, Present nontender, Present bowel sounds normal GENITOURINARY Genitourinary: Present exam deferred SKIN Skin: Present warm, Present dry MUSCULOSKELETAL Musculoskeletal: Present ROM normal NEUROLOGICAL Neurological: Present alert, Present oriented x 3, Present no gross motor or sensory deficits PSYCHOLOGICAL Psychological: Present mood/affect normal, Present judgement normal Results Laboratory Result Diagram: 11/10/19 1433 11/10/19 1433 Laboratory Laboratory Tests Test 11/10/19 16:15 11/10/19 14:33 White Blood Count 8.14 x10e3/uL (4.8-10.8) Red Blood Count 5.12 x10e6/uL (4.3-5.7) Hemoglobin 15.6 g/dL (14.0-18.0) Hematocrit 46.2 % (38.2-49.6) Mean Corpuscular Volume 90.2 fL (81-99) Mean Corpuscular Hemoglobin 30.5 pg (28-32) Mean Corpuscular Hemoglobin Concent 33.8 g/dL (31-35) Red Cell Distribution Width 13.8 % (11.7-14.4) Platelet Count 221 x10e3/uL (140-360) Neutrophils (%) (Auto) 65.7 % (38.7-80.0) Lymphocytes (%) (Auto) 23.7 % (18.0-39.1) Monocytes (%) (Auto) 9.0 % (4.4-11.3) Eosinophils (%) (Auto) 0.6 % (0.0-6.0) Basophils (%) (Auto) 0.6 % (0.0-1.0) Neutrophils # (Auto) 5.4 (2.1-6.9) Lymphocytes # (Auto) 1.9 (1.0-3.2) Monocytes # (Auto) 0.7 (0.2-0.8) Eosinophils # (Auto) 0.1 (0.0-0.4) Basophils # (Auto) 0.1 (0.0-0.1) Absolute Immature Granulocyte (auto 0.03 x10e3/uL (0-0.1) Prothrombin Time 13.0 seconds (11.9-14.5) Prothromb Time International Ratio 0.94 Activated Partial Thromboplast Time 29.0 seconds (23.8-35.5) Sodium Level 138 mmol/L (136-145) Potassium Level 4.1 mmol/L (3.5-5.1) Chloride Level 101 mmol/L (98-107) Carbon Dioxide Level 21 mmol/L (22-29) Anion Gap 20.1 mmol/L (8-16) Blood Urea Nitrogen 13 mg/dL (7-26) Creatinine 1.18 mg/dL (0.72-1.25) Estimat Glomerular Filtration Rate > 60 ML/MIN (60-) BUN/Creatinine Ratio 11 (6-25) Glucose Level 210 mg/dL (74-118) Calcium Level 9.9 mg/dL (8.4-10.2) Total Bilirubin 0.4 mg/dL (0.2-1.2) Aspartate Amino Transf (AST/SGOT) 28 IU/L (5-34) Alanine Aminotransferase (ALT/SGPT) 26 IU/L (0-55) Alkaline Phosphatase 64 IU/L (40-150) Creatine Kinase 73 IU/L (30-200) Creatine Kinase MB 1.20 ng/mL (0-5.0) Troponin I 0.005 ng/mL (0-0.300) Total Protein 8.1 g/dL (6.5-8.1) Albumin 4.6 g/dL (3.5-5.0) Globulin 3.5 g/dL (2.3-3.5) Albumin/Globulin Ratio 1.3 (0.8-2.0) Lab results reviewed: Yes Imaging Imaging results reviewed: Yes Impressions EXAMINATION: CHEST SINGLE (PORTABLE) INDICATION: Chest pain COMPARISON: Multiple prior chest x-ray examinations most recent dated 10/29/2019. FINDINGS: AP view TUBES and LINES: None. . LUNGS/PLEURA: Lungs are not well inflated. There is no evidence of pneumonia or pulmonary edema.. There is no pleural effusion or pneumothorax. HEART AND MEDIASTINUM: The cardiomediastinal silhouette is slightly prominent likely due to low lung volumes. BONES AND SOFT TISSUES: No acute osseous lesion. Soft tissues are unremarkable. UPPER ABDOMEN: No free air under the diaphragm. IMPRESSION: No acute thoracic abnormality. Signed by: Bert Galeano MD on 11/10/2019 3:47 PM Procedures 12 Lead ECG Interpretation ECG Interpretation : ECG: ECG 1 [employer] Driver: Interpreted by ED physician Date: Nov 10, 2019 Time: 14:15 Rhythm: sinus rhythm (LAFB) Rate: normal (82) QRS axis: left Conduction: LAFB ST segments normal: Yes T wave inversion: III, aVR Clinical Impression: abnormal ECG Assessment & Plan Medical Decision Making MDM CP WITH KNOWN CAD, STARTED 4 DAYS AGO - CBC, CHEM, ECG, CXR, PT/PTT, BNP - R/O STEMI/NSTEMI, CHF, NON-CARDIAC CP, PNEUMONIA, RENAL INSUFF Reassessment Reassessment I SPOKE WITH DR CASSIDY WHO FEELS PT IS VERY ANXIOUS DUE TO PRIOR DE, HAS SEEN PT RECENTLY, DOES NOT FEEL PT NEEDS ADMISSION - WANTS ANOTHER SET OF CARDIAC E NZYMES AND IF UNCHANGED, DC HOME, HE WILL SEE PT ON DC HOME, F/U PCP AND DR ANGE PETER, RTED PRN SX'S WORSEN, CONTINUE CURRENT MEDS Assessment & Plan Final Impression: (1) Chest pain Depart Disposition: HOME, SELF-CARE Last Vital Signs Date Time Temp Pulse Resp B/P (MAP) Pulse Ox O2 Delivery O2 Flow Rate FiO2 11/10/19 15:47 78 17 138/73 99 11/10/19 14:39 98.1 Room Air Home Meds Reported Medications Insulin Aspart (NOVOLOG) 100 Unit/1 Ml Cartridge, UNIT SC PRN 10/23/18 Isosorbide Mononitrate (ISOSORBIDE MONONITRATE ER) 30 Mg Tab.er.24h, 120 MG PO D AILY, #30 TAB 02/14/18 Pramipexole Di-Hcl (PRAMIPEXOLE DIHYDROCHLORIDE) 0.25 Mg Tablet, 1 TAB PO HS 09/04/16 Divalproex Sodium (DIVALPROEX SODIUM) 250 Mg Tablet.dr, 250 TAB PO DAILY TAKE 1 PILL DURING THE DAY AND TAKE 2 PILLS DURING THE EVENING TIME 09/04/16 Atorvastatin Calcium (ATORVASTATIN CALCIUM) 10 Mg Tablet, 40 MG PO 2100, #30 TAB 09/04/16 Sitagliptin Phos/Metformin Hcl (JANUMET 50-1,000 MG TABLET) 1 Each Tablet, 1000 TAB PO BID 09/04/16 [Jardeiance] No Conflict Check, 25 MG PO DAILY 09/04/16 Nitroglycerin (NITROSTAT) 0.4 Mg Tab.subl, 0.4 MG SL PRN PRN for PAIN 10/20/15 Metoprolol Tartrate (METOPROLOL TARTRATE) 50 Mg Tablet, 50 MG PO BID, TAB 10/20/15 Clopidogrel Bisulfate* (PLAVIX) 75 Mg Tablet, 75 MG PO DAILY, #30 TAB 10/20/15 Lisinopril (LISINOPRIL) 2.5 Mg Tablet, 5 MG PO DAILY, #30 TAB 10/20/15 CIRA CORNEJO MD Nov 10, 2019 16:56
== END 2019-11-10 17:07 | disposition home or self-care (01) ==
LOC: ER 14:24
DX: R07.9 Chest pain, unspecified (principal); E11.9 Type 2 diabetes mellitus without complications; I10 Essential (primary) hypertension; E78.5 Hyperlipidemia, unspecified; I25.10 Atherosclerotic heart disease of native coronary artery without angina pectoris; K21.9 Gastro-esophageal reflux disease without esophagitis; I25.2 Old myocardial infarction; Z95.5 Presence of coronary angioplasty implant and graft; R94.31 Abnormal electrocardiogram [ECG] [EKG]
CPT/HCPCS: 36415; 71045; 80053; 82550; 82553; 84484; 85025; 85610; 85730; 93005; 99284

== ENCOUNTER 2020-04-19 01:38 | Emergency (ER) | payer BC ==
[2020-04-19 02:05] LABS: BASOPHILS % 0.4 % (0.0-1.0); EOSINOPHILS # (AUTO) 0.1 (0.0-0.4); EOSINOPHILS % 0.9 % (0.0-6.0); HEMATOCRIT 48.5 % (38.2-49.6); HEMOGLOBIN 15.5 g/dL (14.0-18.0); LYMPHOCYTES # (AUTO) 2.1 (1.0-3.2); LYMPHOCYTES % 19.9 % (18.0-39.1); MEAN CORPUSCULAR HEMOGLOBIN 29.4 pg (28-32); MONOCYTES # (AUTO) 0.9 (0.2-0.8); MONOCYTES % 8.9 % (4.4-11.3); NEUTROPHILS # (AUTO) 7.2 (2.1-6.9); NEUTROPHILS % 69.5 % (38.7-80.0); PLATELET COUNT 239 x10e3/uL (140-360); RED BLOOD COUNT 5.27 x10e6/uL (4.3-5.7); RED CELL DISTRIBUTION WIDTH 13.9 % (11.7-14.4)
[2020-04-19] MEDS ORDERED: ONDANSETRON HCL INJ 2MG/ML 2ML 2 MG/ML VIAL ONE (02:09)
[2020-04-19] MEDS: ASPIRIN 81 MG CHEW TAB PO ONE (02:30)
[2020-04-19 02:31] LABS: ALBUMIN 4.1 g/dL (3.5-5.0); ALBUMIN/GLOBULIN RATIO 1.1 (0.8-2.0); CALCIUM 9.1 mg/dL (8.4-10.2); CREATININE, SERUM 1.27 mg/dL (0.72-1.25)
[2020-04-19] MEDS ORDERED: ZUPLENZ4 MG PO (03:00)
[2020-04-19] MEDS: ONDANSETRON HCL INJ 2MG/ML 2ML 2 MG/ML VIAL IV STA (03:01)
[2020-04-19 03:14] VITALS: BP 148/79
== END 2020-04-19 03:16 | disposition home or self-care (01) ==
LOC: ER 02:08
DX: R07.9 Chest pain, unspecified (principal); R06.02 Shortness of breath; I10 Essential (primary) hypertension; E11.65 Type 2 diabetes mellitus with hyperglycemia; E78.5 Hyperlipidemia, unspecified; I25.10 Atherosclerotic heart disease of native coronary artery without angina pectoris; K21.9 Gastro-esophageal reflux disease without esophagitis; I25.2 Old myocardial infarction; Z95.5 Presence of coronary angioplasty implant and graft
CPT/HCPCS: 36415; 71045; 80053; 83880; 84484; 85025; 99284; J2405

== ENCOUNTER → 2021-11-02 | Day surgery (SDC) | payer BC ==
[2021-10-30 08:37] LABS: BASOPHILS # (AUTO) 0.1 (0.0-0.1); BASOPHILS % 0.6 % (0.0-1.0); EOSINOPHILS # (AUTO) 0.1 (0.0-0.4); EOSINOPHILS % 1.1 % (0.0-6.0); HEMATOCRIT 49.5 % (38.2-49.6); HEMOGLOBIN 15.5 g/dL (14.0-18.0); LYMPHOCYTES # (AUTO) 1.7 (1.0-3.2); LYMPHOCYTES % 20.4 % (18.0-39.1); MEAN CORPUSCULAR HEMOGLOBIN 25.9 pg (28-32); MEAN CORPUSCULAR HGB CONC 31.3 g/dL (31-35); MEAN CORPUSCULAR VOLUME 82.6 fL (81-99); MONOCYTES # (AUTO) 0.6 (0.2-0.8); MONOCYTES % 6.4 % (4.4-11.3); NEUTROPHILS # (AUTO) 6.1 (2.1-6.9); NEUTROPHILS % 71.1 % (38.7-80.0); PLATELET COUNT 262 x10e3/uL (140-360); RED BLOOD COUNT 5.99 x10e6/uL (4.3-5.7); RED CELL DISTRIBUTION WIDTH 15.4 % (11.7-14.4)
[2021-10-30 08:55] LABS: BLOOD UREA NITROGEN 12 mg/dL (7-26); BUN/CREATININE RATIO 9 (6-25); CALCIUM 9.1 mg/dL (8.4-10.2); CARBON DIOXIDE 25 mmol/L (22-29); CHLORIDE 101 mmol/L (98-107); CREATININE, SERUM 1.37 mg/dL (0.72-1.25); GLUCOSE 277 mg/dL (74-118); SODIUM 137 mmol/L (136-145)
[~2021-11-02] MED LIST changes: +ACETAMINOPHEN/CODEINE 300MG - 30MG TAB ONE; +COMBIVENT RESPIM4 GM IH; +DEXAMETHASONE SOD PHOS INJ 4 MG/ML SDV ONE; +FENTANYL CITRATE/PF 100MCG/2 ML INJ ONE; +MIDAZOLAM HCL 2 MG/2 ML VIAL ONE; +ONDANSETRON HCL INJ 2MG/ML 2ML 2 MG/ML VIAL ONE; +OZEMPIC2 MG/0.75 SC; +PANTOPRAZOLE SO40 MG PO; +POVIDONE IODINE 0.05% 0.05 % ML PO ONE; +PROPOFOL IV EMULSION 10 MG/ML 20 ML VIAL ONE; +QULIPTA30 MG PO; +SEVOFLURANE INHAL SOLN 250 ML PEN BTL ONE; +UBRELVY50 MG PO; +ZETIA10 MG PO; +ZUPLENZ4 MG PO
[2021-11-02 13:00] VITALS: BP 163/90
== END | disposition home or self-care (01) ==
LOC: OR 09:39
PROVIDERS: ATTEND Specialist
DX: M77.11 Lateral epicondylitis, right elbow (principal); G47.33 Obstructive sleep apnea (adult) (pediatric); E11.9 Type 2 diabetes mellitus without complications; I25.10 Atherosclerotic heart disease of native coronary artery without angina pectoris; E78.5 Hyperlipidemia, unspecified; I25.2 Old myocardial infarction; I10 Essential (primary) hypertension; G43.909 Migraine, unspecified, not intractable, without status migrainosus; K21.9 Gastro-esophageal reflux disease without esophagitis; E66.9 Obesity, unspecified; Z88.6 Allergy status to analgesic agent; Z88.1 Allergy status to other antibiotic agents; Z88.2 Allergy status to sulfonamides; Z01.812 Encounter for preprocedural laboratory examination; Z01.818 Encounter for other preprocedural examination; Z20.822 Contact with and (suspected) exposure to COVID-19; Z79.02 Long term (current) use of antithrombotics/antiplatelets; Z79.4 Long term (current) use of insulin; Z79.899 Other long term (current) drug therapy; Z68.31 Body mass index [BMI] 31.0-31.9, adult; Z95.5 Presence of coronary angioplasty implant and graft
CPT/HCPCS: 0223U; 24359; 36415 ×2; 71046; 80048; 82948; 85025; J0690; J1100; J2250; J2405; J2704; J3010

== ENCOUNTER 2022-08-13 16:14 | Inpatient (IN) | payer BC ==
[~2022-08-13] VITALS: Ht 160 cm; Wt 81.6 kg
[~2022-08-13 16:14] MED LIST changes: -ACETAMINOPHEN/CODEINE 300MG - 30MG TAB ONE; -DEXAMETHASONE SOD PHOS INJ 4 MG/ML SDV ONE; -FENTANYL CITRATE/PF 100MCG/2 ML INJ ONE; -MIDAZOLAM HCL 2 MG/2 ML VIAL ONE; -ONDANSETRON HCL INJ 2MG/ML 2ML 2 MG/ML VIAL ONE; -POVIDONE IODINE 0.05% 0.05 % ML PO ONE; -PROPOFOL IV EMULSION 10 MG/ML 20 ML VIAL ONE; -SEVOFLURANE INHAL SOLN 250 ML PEN BTL ONE
[2022-08-13] MEDS ORDERED: SODIUM CHLORIDE 0.9% 1000ML 1,000 ML IV STA (16:41)
[2022-08-13] MEDS ORDERED: FAMOTIDINE 20 MG/2 ML VIAL IV STA (16:41)
[2022-08-13] MEDS ORDERED: METOCLOPRAMIDE HCL 10 MG/2ML VIAL IV ONE (16:45)
[2022-08-13 17:20] LABS: BASOPHILS % 0.3 % (0.0-1.0); EOSINOPHILS # (AUTO) 0.1 (0.0-0.4); EOSINOPHILS % 0.6 % (0.0-6.0); HEMATOCRIT 45.3 % (38.2-49.6); HEMOGLOBIN 15.4 g/dL (14.0-18.0); LYMPHOCYTES # (AUTO) 1.5 (1.0-3.2); LYMPHOCYTES % 18.3 % (18.0-39.1); MEAN CORPUSCULAR HEMOGLOBIN 29.7 pg (28-32); MEAN CORPUSCULAR VOLUME 87.5 fL (81-99); MONOCYTES # (AUTO) 0.7 (0.2-0.8); MONOCYTES % 8.2 % (4.4-11.3); NEUTROPHILS # (AUTO) 5.7 (2.1-6.9); NEUTROPHILS % 72.3 % (38.7-80.0); PLATELET COUNT 223 x10e3/uL (140-360); RED BLOOD COUNT 5.18 x10e6/uL (4.3-5.7); RED CELL DISTRIBUTION WIDTH 13.8 % (11.7-14.4)
[2022-08-13 17:37] LABS: ANION GAP 14.7 mmol/L (8-16); CALCIUM 9.5 mg/dL (8.4-10.2); CREATININE, SERUM 1.32 mg/dL (0.72-1.25); POTASSIUM 3.7 mmol/L (3.5-5.1)
[2022-08-13 17:39] LABS: ALBUMIN 3.7 g/dL (3.5-5.0); BILIRUBIN,DIRECT 0.3 mg/dL (0.0-0.5)
[2022-08-13] MEDS ORDERED: IOPAMIDOL 370 MG/ML 100 ML INFUS..BTL INJ ONE (17:41)
[2022-08-13] MEDS ORDERED: Morphine 4mg INJECTION 4 MG/ML INJ IV PRN (19:15)
[2022-08-13] MEDS ORDERED: DEXTROSE 50% SYRINGE 50 ML IV PRN (19:15)
[2022-08-13] MEDS: SODIUM CHLORIDE 0.9% 1000ML 1,000 ML IV SCH (19:31)
[2022-08-13] MEDS: ONDANSETRON HCL INJ 2MG/ML 2ML 2 MG/ML VIAL IV PRN (20:58)
[2022-08-13] MEDS: INSULIN REGULAR, HUMAN 100 UNIT/1 ML SQ SCH (21:00)
[2022-08-13 21:15] VITALS: BP 130/97; PULSE 93; RESP 21; TEMP 98.2; O2SAT 100
[2022-08-13 21:30] VITALS: BP 130/97; PULSE 93; RESP 21; TEMP 98.2; O2SAT 100
[2022-08-13 22:11] LABS: CHOL/HDL RATIO 2.7 (3.9-4.7)
[2022-08-14] VITALS (9 sets, daily range): BP systolic 126–154; BP diastolic 72–99; PULSE 72–89; RESP 12–22; TEMP 97.5–98; O2SAT 93–100
[2022-08-14] MEDS: SODIUM CHLORIDE 0.9% 1000ML 1,000 ML IV SCH ×5 (01:24→23:50)
[2022-08-14 07:03] LABS: BASOPHILS % 0.4 % (0.0-1.0); EOSINOPHILS # (AUTO) 0.1 (0.0-0.4); EOSINOPHILS % 0.8 % (0.0-6.0); HEMATOCRIT 43.9 % (38.2-49.6); HEMOGLOBIN 14.8 g/dL (14.0-18.0); LYMPHOCYTES # (AUTO) 1.9 (1.0-3.2); LYMPHOCYTES % 23.2 % (18.0-39.1); MEAN CORPUSCULAR HEMOGLOBIN 29.4 pg (28-32); MEAN CORPUSCULAR HGB CONC 33.7 g/dL (31-35); MEAN CORPUSCULAR VOLUME 87.3 fL (81-99); MONOCYTES # (AUTO) 0.9 (0.2-0.8); MONOCYTES % 10.8 % (4.4-11.3); NEUTROPHILS # (AUTO) 5.2 (2.1-6.9); NEUTROPHILS % 64.5 % (38.7-80.0); PLATELET COUNT 195 x10e3/uL (140-360); RED BLOOD COUNT 5.03 x10e6/uL (4.3-5.7); RED CELL DISTRIBUTION WIDTH 13.6 % (11.7-14.4)
[2022-08-14] MEDS: ONDANSETRON HCL INJ 2MG/ML 2ML 2 MG/ML VIAL IV PRN ×4 (07:07→20:41)
[2022-08-14 07:10] LABS: ALBUMIN 3.4 g/dL (3.5-5.0); ALBUMIN/GLOBULIN RATIO 0.9 (0.8-2.0); ANION GAP 11.7 mmol/L (8-16); CALCIUM 8.7 mg/dL (8.4-10.2); CREATININE, SERUM 1.22 mg/dL (0.72-1.25); POTASSIUM 3.7 mmol/L (3.5-5.1)
[2022-08-14] MEDS: INSULIN REGULAR, HUMAN 100 UNIT/1 ML SQ SCH ×4 (07:30→20:47)
[2022-08-14] MEDS ORDERED: DEXTROSE 10% 1,000 ML IV ONE (20:45)
[2022-08-15 00:22] VITALS: BP 129/89; PULSE 80; RESP 18; TEMP 98.3; O2SAT 100
[2022-08-15 04:26] VITALS: BP 131/88; PULSE 91; RESP 18; TEMP 98.1; O2SAT 100
[2022-08-15 06:05] LABS: BASOPHILS % 0.3 % (0.0-1.0); EOSINOPHILS # (AUTO) 0.1 (0.0-0.4); EOSINOPHILS % 1.2 % (0.0-6.0); HEMATOCRIT 44.4 % (38.2-49.6); HEMOGLOBIN 14.6 g/dL (14.0-18.0); LYMPHOCYTES # (AUTO) 1.4 (1.0-3.2); LYMPHOCYTES % 19.9 % (18.0-39.1); MEAN CORPUSCULAR HEMOGLOBIN 29.3 pg (28-32); MEAN CORPUSCULAR HGB CONC 32.9 g/dL (31-35); MEAN CORPUSCULAR VOLUME 89.2 fL (81-99); MONOCYTES # (AUTO) 0.9 (0.2-0.8); MONOCYTES % 12.5 % (4.4-11.3); NEUTROPHILS # (AUTO) 4.8 (2.1-6.9); NEUTROPHILS % 65.8 % (38.7-80.0); PLATELET COUNT 210 x10e3/uL (140-360); RED BLOOD COUNT 4.98 x10e6/uL (4.3-5.7); RED CELL DISTRIBUTION WIDTH 13.2 % (11.7-14.4)
[2022-08-15] MEDS: SODIUM CHLORIDE 0.9% 1000ML 1,000 ML IV SCH ×2 (06:12→11:09)
[2022-08-15 06:38] LABS: ALBUMIN 3.5 g/dL (3.5-5.0); ALBUMIN/GLOBULIN RATIO 0.9 (0.8-2.0); ANION GAP 12.5 mmol/L (8-16); CALCIUM 9.2 mg/dL (8.4-10.2); CREATININE, SERUM 1.32 mg/dL (0.72-1.25); POTASSIUM 3.5 mmol/L (3.5-5.1)
[2022-08-15] MEDS: INSULIN REGULAR, HUMAN 100 UNIT/1 ML SQ SCH ×2 (07:30→11:04)
[2022-08-15 07:56] VITALS: BP 150/98; PULSE 80; RESP 19; TEMP 98.1; O2SAT 100
[2022-08-15 08:05] VITALS: PULSE 86; RESP 18; O2SAT 100
[2022-08-15 11:00] VITALS: BP 151/98; PULSE 88; RESP 19; TEMP 98.6; O2SAT 99
== END 2022-08-15 13:19 | disposition home or self-care (01) | DRG 440 ==
LOC: ER 16:36 → ERHOLD 19:05 → ICU 21:23 → MED/SURG 08-14 16:06
PROVIDERS: ADMIT Internal Medicine; ATTEND Internal Medicine
DX: K85.90 Acute pancreatitis without necrosis or infection, unspecified (principal); K22.70 Barrett's esophagus without dysplasia; I25.10 Atherosclerotic heart disease of native coronary artery without angina pectoris; I10 Essential (primary) hypertension; E11.9 Type 2 diabetes mellitus without complications; I25.2 Old myocardial infarction; K21.9 Gastro-esophageal reflux disease without esophagitis; E78.5 Hyperlipidemia, unspecified; K76.0 Fatty (change of) liver, not elsewhere classified; N28.1 Cyst of kidney, acquired; E66.9 Obesity, unspecified; Z68.31 Body mass index [BMI] 31.0-31.9, adult; Z79.4 Long term (current) use of insulin; Z95.5 Presence of coronary angioplasty implant and graft; Z90.49 Acquired absence of other specified parts of digestive tract; Z20.822 Contact with and (suspected) exposure to COVID-19
CPT/HCPCS: 0223U; 36415; 71045; 74177; 80048; 80053; 80061; 80076; 82550; 82948; 83036; 83690; 84484; 85025; 93005; 94799; 99284; J2405; J2765; J7030; J7799; Q9967

== ENCOUNTER 2022-08-19 02:25 | Emergency (ER) | payer BC ==
[~2022-08-19] VITALS: Ht 160 cm; Wt 81.6 kg
[2022-08-19 02:45] LABS: BASOPHILS % 0.5 % (0.0-1.0); EOSINOPHILS # (AUTO) 0.1 (0.0-0.4); EOSINOPHILS % 0.7 % (0.0-6.0); HEMATOCRIT 46.4 % (38.2-49.6); HEMOGLOBIN 15.7 g/dL (14.0-18.0); LYMPHOCYTES # (AUTO) 2.1 (1.0-3.2); LYMPHOCYTES % 25.6 % (18.0-39.1); MEAN CORPUSCULAR HEMOGLOBIN 29.3 pg (28-32); MEAN CORPUSCULAR HGB CONC 33.8 g/dL (31-35); MEAN CORPUSCULAR VOLUME 86.7 fL (81-99); MONOCYTES # (AUTO) 0.8 (0.2-0.8); MONOCYTES % 10.3 % (4.4-11.3); NEUTROPHILS % 62.8 % (38.7-80.0); PLATELET COUNT 223 x10e3/uL (140-360); RED BLOOD COUNT 5.35 x10e6/uL (4.3-5.7); RED CELL DISTRIBUTION WIDTH 13.7 % (11.7-14.4)
[2022-08-19] MEDS ORDERED: Morphine 4mg INJECTION 4 MG/ML INJ IV ONE (02:45)
[2022-08-19] MEDS ORDERED: SODIUM CHLORIDE FLUSH 10 ML SYR IV PRN (02:45)
[2022-08-19] MEDS ORDERED: SODIUM CHLORIDE 0.9% 1000ML 1,000 ML IV SCH (02:45)
[2022-08-19] MEDS ORDERED: METOCLOPRAMIDE HCL 10 MG/2ML VIAL IV ONE (02:45)
[2022-08-19 02:46] LABS: CLARITY,URINE CLEAR (CLEAR); COLOR,URINE YELLOW (YELLOW); LEUKOCYTE ESTERASE ,URINE NEGATIVE (NEGATIVE); NITRITE,URINE NEGATIVE (NEGATIVE); PROTEIN,URINE DIPSTICK NEGATIVE (NEGATIVE)
[2022-08-19 02:47] LABS: KETONES,URINE NEGATIVE (NEGATIVE); URINE UROBILINOGEN 0.2 mg/dL (0.2 - 1)
[2022-08-19 02:53] LABS: BACTERIA,URINE FEW /HPF; EPITHELIAL CELLS,URINE FEW /LPF; RBC,URINE 0-5 /HPF (0-5); WBC,URINE (MAN) 0-5 /HPF (0-5)
[2022-08-19 03:06] LABS: ALBUMIN 3.9 g/dL (3.5-5.0); ANION GAP 15.8 mmol/L (8-16); CALCIUM 9.6 mg/dL (8.4-10.2); CREATININE, SERUM 1.2 mg/dL (0.72-1.25); POTASSIUM 3.8 mmol/L (3.5-5.1)
[2022-08-19] MEDS ORDERED: REGLAN10 MG PO (05:43)
[2022-08-19 05:52] VITALS: BP 139/89; PULSE 75; RESP 18; TEMP 97.8; O2SAT 100
== END 2022-08-19 05:53 | disposition home or self-care (01) ==
LOC: ER 02:31
DX: R10.13 Epigastric pain (principal); K85.90 Acute pancreatitis without necrosis or infection, unspecified; R11.2 Nausea with vomiting, unspecified; E11.65 Type 2 diabetes mellitus with hyperglycemia; I10 Essential (primary) hypertension; E78.5 Hyperlipidemia, unspecified; K21.9 Gastro-esophageal reflux disease without esophagitis; I25.10 Atherosclerotic heart disease of native coronary artery without angina pectoris; R94.31 Abnormal electrocardiogram [ECG] [EKG]; I25.2 Old myocardial infarction; Z95.5 Presence of coronary angioplasty implant and graft
CPT/HCPCS: 36415; 71045; 80053; 81001; 83690; 84484; 85025; 93005; 99284; J2270; J2765; J7030

== ENCOUNTER → 2024-02-14 | Day surgery (SDC) | payer BC ==
[2024-02-09 15:25] LABS: BASOPHILS # (AUTO) 0.1 (0.0-0.1); BASOPHILS % 0.6 % (0.0-1.0); EOSINOPHILS # (AUTO) 0.2 (0.0-0.4); EOSINOPHILS % 1.4 % (0.0-6.0); HEMATOCRIT 50.2 % (38.2-49.6); HEMOGLOBIN 14.8 g/dL (14.0-18.0); LYMPHOCYTES # (AUTO) 2.4 (1.0-3.2); LYMPHOCYTES % 22.3 % (18.0-39.1); MEAN CORPUSCULAR HEMOGLOBIN 23.2 pg (28-32); MEAN CORPUSCULAR HGB CONC 29.5 g/dL (31-35); MEAN CORPUSCULAR VOLUME 78.8 fL (81-99); MONOCYTES # (AUTO) 1.2 (0.2-0.8); NEUTROPHILS # (AUTO) 6.9 (2.1-6.9); NEUTROPHILS % 64.2 % (38.7-80.0); PLATELET COUNT 263 x10e3/uL (140-360); RED BLOOD COUNT 6.37 x10e6/uL (4.3-5.7); RED CELL DISTRIBUTION WIDTH 20.3 % (11.7-14.4); WHITE BLOOD COUNT 10.68 x10e3/uL (4.8-10.8)
[2024-02-09 15:45] LABS: ANION GAP 15.8 mmol/L (8-16); CALCIUM 10.1 mg/dL (8.4-10.2); CREATININE, SERUM 1.43 mg/dL (0.72-1.25); POTASSIUM 3.8 mmol/L (3.5-5.1)
[~2024-02-14] MED LIST changes: +ACETAMINOPHEN 1000 MG/100 ML 0 ML IV ONE; +ACETAMINOPHEN/CODEINE 300MG - 30MG TAB ONE; +DEXAMETHASONE SOD PHOS INJ 4 MG/ML SDV ONE; +FAMOTIDINE 20 MG/2 ML VIAL IV ONE; +FENTANYL CITRATE/PF 100MCG/2 ML INJ ONE; +JARDIANCE25 MG PO; +LIDOCAINE HCL 2% LOCAL INJ 5 ML SDV VIAL INJ ONE; +METOCLOPRAMIDE HCL 10 MG/2ML VIAL ONE; +ONDANSETRON HCL INJ 2MG/ML 2ML 2 MG/ML VIAL ONE; +PHENYLEPHRINE HCL 1% 10 MG/ML VIAL ONE; +PROPOFOL IV EMULSION 10 MG/ML 20 ML VIAL ONE; +REGLAN10 MG PO; +SEVOFLURANE INHAL SOLN 250 ML PEN BTL ONE; +SODIUM CHLORIDE 0.9% 200 ML ONE; +VIT B12 PO; +VIT D3 PO
[2024-02-14] MEDS: LACTATED RINGER'S 1,000 ML ONE (06:07)
[2024-02-14 07:55] VITALS: TEMP 97.8
[2024-02-14 09:00] VITALS: BP 111/84; PULSE 68; RESP 16; O2SAT 98
[2024-02-14] MEDS: ACETAMINOPHEN/CODEINE 300MG - 30MG TAB PO ONE (09:00)
== END | disposition home or self-care (01) ==
LOC: OR 05:11
PROVIDERS: ATTEND Specialist
DX: M65.331 Trigger finger, right middle finger (principal); G47.33 Obstructive sleep apnea (adult) (pediatric); E11.9 Type 2 diabetes mellitus without complications; I25.10 Atherosclerotic heart disease of native coronary artery without angina pectoris; I10 Essential (primary) hypertension; E78.5 Hyperlipidemia, unspecified; I25.2 Old myocardial infarction; K21.9 Gastro-esophageal reflux disease without esophagitis; K44.9 Diaphragmatic hernia without obstruction or gangrene; Z88.6 Allergy status to analgesic agent; Z88.1 Allergy status to other antibiotic agents; Z01.810 Encounter for preprocedural cardiovascular examination; Z01.812 Encounter for preprocedural laboratory examination; Z01.818 Encounter for other preprocedural examination; Z79.02 Long term (current) use of antithrombotics/antiplatelets; Z79.4 Long term (current) use of insulin; Z79.899 Other long term (current) drug therapy; Z95.5 Presence of coronary angioplasty implant and graft
CPT/HCPCS: 26055; 36415; 71046; 80048; 85025; 93005; J0690; J1100; J2003; J2371; J2405; J2704; J2765; J3010; J7050; J7121